=== PATIENT | male | born 1960 | race Caucasian/White ===

== ENCOUNTER 2023-03-19 10:01 | Inpatient (IN) ==
--- NOTE | 2023-03-19 10:13 | Emergency Department Note ---
Impression & Plan Pneumonia, Neutropenic fever, Hypomagnesemia, Sepsis ED Provider Note NAME: JULIANNA AZEVEDO AGE: 62 SEX: M : 1960 ARRIVES VIA: Walk-In INFORMANT: Patient, ED PROVIDER(S): Gio Mckinley DO CHIEF COMPLAINT: Fever HPI: The patient is a 62-year-old male who has a history of oral cavity cancer who presented to the emergency department for an evaluation. The patient presented for radiation therapy today at the cancer center. He was found to be febrile tachycardic and hypotensive. He had decreased p.o. intake. He was sent emergently to the ER for further evaluation. The patient denies having any vomiting or leg swelling. He denies having any headache. He denies having any chest pain or difficulty with abdominal pain. He has noticed some cough which is productive. ROS: See above HPI for pertinent positives & negatives. A total of 10 systems reviewed and were otherwise negative. PAST MEDICAL HISTORY: See Below PAST SURGICAL HISTORY: See Below FAMILY HISTORY: See Below SOCIAL HISTORY: See Below HOME MEDICATIONS: See Below ALLERGIES: See Below VITALS: See Below PHYSICAL EXAMINATION: GENERAL: Patient is awake alert in no acute distress patient is resting comfortably and showing no signs of anxiety EYES: The conjunctivae are clear. The pupils are round and reactive. EARS, NOSE, MOUTH AND THROAT: The nose is without any evidence of any deformity. Mucous membranes are dry. NECK: The neck is nontender and supple. RESPIRATORY: Diminished breath sounds were noted throughout. There were scattered rhonchi throughout. CARDIOVASCULAR: Regular rate and rhythm noted there no murmurs rubs or gallops normal S1 normal S2. GASTROINTESTINAL: The abdomen is soft. Abdomen is nontender. MUSCULOSKELETAL/EXTREMITIES: There is no evidence of gross deformity full range of motion is noted in the hips and shoulders. SKIN: There is no obvious evidence of any rash. There are no petechiae, pallor or cyanosis noted. NEUROLOGIC: Patient is awake alert and oriented x3 MEDICAL DECISION MAKING: The patient is a 62-year-old male who is a history of oral cancer who presented to the emergency department for an evaluation of difficulty breathing and fever. The patient was treated with IV fluids in the emergency department. He was also treated with IV antibiotics. He was reevaluated multiple times. He received IV magnesium for hypomagnesemia. I discussed the patient's laboratory and radiographic studies with him. Given his condition as well as his findings I [facility] have agreed to evaluate the patient in the emergency department for further management and disposition. Triage Nursing notes reviewed. Prior medical records reviewed Vital Signs: reviewed and remarkable for initial hypotension. Differential diagnosis: Viral syndrome, otitis, pharyngitis, pneumonia, influenza, meningitis, urinary tract infection, sepsis, bacteremia, as well as other pathologies. ER treatment provided: See below Diagnostics interpreted by me: ECG: EKG was obtained in the emergency department. My interpretation is sinus tachycardia at 114 bpm. There is no ectopy. There is no acute ST segment abnormalities noted. No previous tracing was available. Cardiac Monitoring: An order was placed for continuous cardiac monitoring. The monitor shows a rate of 91 bpm with sinus rhythm. Laboratory studies: As stated above and show below. Imaging studies: See below. Radiographic imaging was reviewed by myself Consultation(s): I discussed this case with Kay who [facility] ED COURSE: Procedures: none Critical Care: I have personally spent greater than 45 minutes of critical care time in the direct management of this patient. This includes bedside care, interpretation of diagnostic studies, and testing, discussion with consultants, patient, and family members, and other required patient management activities. This 45 minutes is in excess of all separately billable procedures. Past Med/Surg History Medical History (Updated 03/19/23 @ 14:09 by Gio Mckinley DO) Cancer of oral cavity Venous insufficiency Cavitary lung disease Centrilobular emphysema Tobacco use disorder Surgical History S/P percutaneous endoscopic gastrostomy (PEG) tube placement S/P bronchoscopy Family History Mother Myocardial infarction Father Myocardial infarction Sister Myocardial infarction Social History Smoking Status: Former smoker Tobacco Type: Cigarettes Age Started Using Tobacco: 15; Cigarettes Per Day: 1-2 cigarettes per day; Second Hand Exposure: No; Do You Dip or Chew Tobacco: No; Hx Alcohol Use: Yes Alcohol type: beer Hx Substance Use: No Preferred Language: Martiniquais Communication Ability: Effective Communication Ability Comment: does have difficulty speaking due to oral pain Visual Impairment: No Limitations Hearing Ability: Normal Beliefs That Will Affect Care: None Current Living Situation: Alone current occupational status: employed 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 Feels Safe at Home: Yes Diet: Pureed during the past year weight has: decreased > 10 lbs Assistive Devices: None Allergies Allergies Allergy/AdvReac Type Severity Reaction Status Date / Time No Known Allergies Allergy Unverified 03/17/23 09:53 Home Meds Home Medications Medication Instructions Recorded Confirmed ondansetron HCl 8 mg tablet 8 mg PO Q8H PRN Nausea And Vomiting 01/14/23 03/19/23 prochlorperazine maleate 10 mg 10 mg PO Q6H PRN Nausea And 01/14/23 03/19/23 tablet (Compazine) Vomiting morphine concentrate 100 mg/5 mL 5 mg PO Q4H PRN Pain 03/19/23 03/19/23 (20 mg/mL) oral solution nutritional supplements 1 ea feeding tube UD 03/19/23 03/19/23 Previous Rx's Medication Instructions Recorded Magic Mouthwash 300 mL mouthwash 10 ml mucous membrane ACHS PRN 01/27/23 mouth pain #300 mL Results & Data (ED) Vital Signs Vital Signs - 24 hr 03/19/23 10:31 03/19/23 10:33 03/19/23 10:33 Temperature 37.6 C H Temperature Source Oral Pulse Rate 109 H 106 H Pulse Rate [Right Finger] 106 H Pulse Rhythm Regular Pulse Rhythm [Right Finger] Regular Pulse Strength Pulse Strength [Right Finger] Normal Respiratory Rate 24 24 Respiratory Effort / Characteristics Non-Labored Spontaneous Respiratory Depth Normal Respiratory Pattern Regular Blood Pressure Blood Pressure [Right Arm] 91/64 L Blood Pressure Mean Blood Pressure Mean [Right Arm] 73 Blood Pressure Position Blood Pressure Position [Right Arm] Semi-fowlers Pulse Oximetry 96 96 Oxygen Delivery Method Nasal Cannula Nasal Cannula Oxygen Flow Rate 2 2 Sepsis Recent Fever Within 48 Hours Sepsis New/Unexplained Change in Mental Status Sepsis Action Taken by Nursing 03/19/23 10:44 03/19/23 10:44 03/19/23 11:49 Temperature 37.1 C 37.1 C 37.2 C Temperature Source Axillary Axillary Axillary Pulse Rate 106 H Pulse Rate [Right Finger] 106 H 91 H Pulse Rhythm Regular Pulse Rhythm [Right Finger] Regular Regular Pulse Strength Normal Pulse Strength [Right Finger] Normal Normal Respiratory Rate 24 24 20 Respiratory Effort / Characteristics Non-Labored Spontaneous Non-Labored Spontaneous Non-Labored Spontaneous Respiratory Depth Normal Normal Normal Respiratory Pattern Regular Regular Regular Blood Pressure 91/64 L Blood Pressure [Right Arm] 91/64 L 109/68 Blood Pressure Mean 73 Blood Pressure Mean [Right Arm] 73 81 Blood Pressure Position Semi-fowlers Blood Pressure Position [Right Arm] Semi-fowlers Semi-fowlers Pulse Oximetry 96 96 100 Oxygen Delivery Method Nasal Cannula Nasal Cannula Nasal Cannula Oxygen Flow Rate 2 2 2 Sepsis Recent Fever Within 48 Hours Yes Sepsis New/Unexplained Change in Mental Status No Sepsis Action Taken by Nursing Physician Notified 03/19/23 12:45 Temperature 37.2 C Temperature Source Axillary Pulse Rate Pulse Rate [Right Finger] 91 H Pulse Rhythm Pulse Rhythm [Right Finger] Regular Pulse Strength Pulse Strength [Right Finger] Normal Respiratory Rate 20 Respiratory Effort / Characteristics Non-Labored Spontaneous Respiratory Depth Normal Respiratory Pattern Regular Blood Pressure Blood Pressure [Right Arm] 100/63 Blood Pressure Mean Blood Pressure Mean [Right Arm] 75 Blood Pressure Position Blood Pressure Position [Right Arm] Semi-fowlers Pulse Oximetry 100 Oxygen Delivery Method Nasal Cannula Oxygen Flow Rate 2 Sepsis Recent Fever Within 48 Hours Sepsis New/Unexplained Change in Mental Status Sepsis Action Taken by Care Home Medications Current Medication List: was personally reviewed by me Laboratory Data Attestation: I reviewed the patient's lab results. 03/19/23 10:25 03/19/23 10:25 Lab Results 03/19/23 03/19/23 03/19/23 Range/Units 10:25 10:56 12:30 WBC 1.31 L (4.8-10.8) K/ul RBC 3.03 L (4.70-6.10) M/uL Hgb 9.3 L (14.0-18.0) g/dl Hct 27.9 L (42.0-52.0) % MCV 92.1 (80.0-100.0) fL MCH 30.7 (25.0-34.0) pg MCHC 33.3 (32.0-36.0) g/dL RDW Std Deviation 48.8 H (36.4-46.3) fL RDW Coeff of Suraj 15.2 H (11.5-14.5) % Plt Count 111 L (130-400) K/uL MPV 9.7 (9.4-12.4) fL Immature Gran % (Auto) 0.8 % Neut % (Auto) 83.1 % Lymph % (Auto) 4.6 % Tyler % (Auto) 11.5 % Eos % (Auto) 0.0 % Baso % (Auto) 0.0 % Neut # (Auto) 1.09 L (1.40-6.50) K/uL Lymph # (Auto) 0.06 L (1.20-3.40) K/uL Tyler # (Auto) 0.15 (0.11-0.59) K/uL Eos # (Auto) 0.00 (0.00-0.50) K/uL Baso # (Auto) 0.00 (0.00-0.20) K/uL Immature Gran # (Auto) 0.01 (0.01-0.20) K/uL PT 11.6 (9.0-12.0) Seconds INR 1.1 (0.9-1.1) APTT 25 (21-31) Seconds PTT Ratio 0.9 VBG pH Cancelled 7.40 VBG pCO2 Cancelled 50 VBG pO2 Cancelled 33 VBG HCO3 Cancelled 31 VBG O2 Saturation Cancelled TNP VBG Base Excess Cancelled 5.0 Barometric Pressure Cancelled Sodium 132 L (136-145) mmol/L Potassium 4.7 (3.5-5.1) mmol/L Chloride 97 L (98-107) mmol/L Carbon Dioxide 28 (21-32) mmol/L Anion Gap 7 (3-11) BUN 35 H (6-23) mg/dl Creatinine 0.90 (0.6-1.4) mg/dl Est Cr Clr Drug Dosing 65.4 ml/min Est GFR ( Amer) 105.0 ml/min Est GFR (Non-Af Amer) 90.6 ml/min BUN/Creatinine Ratio 38.9 H (10-20) Glucose 149 H (70-99(Fasting)) mg/dl Lactate 2.6 H* 1.3 (0.4-2.0) mmol/L Calcium 8.6 (8.6-10.3) mg/dl Magnesium 1.6 L (1.7-2.4) mg/dl Total Bilirubin 0.5 (0.2-1.0) mg/dl Direct Bilirubin 0.1 (0-0.2) mg/dl AST 14 (13-39) U/L ALT 12 (7-52) U/L Alkaline Phosphatase 67 (34-104) U/L Troponin I High Sens 18.4 (0-20) pg/ml Total Protein 6.5 (6.0-8.3) gm/dl Albumin 3.1 L (3.4-5.0) gm/dl Procalcitonin 0.73 H (0-0.5) ng/ml Adenovirus (PCR) Not Detected (NotDetected) B. pertussis DNA (PCR) Not Detected (NotDetected) B.parapertussis DNA PCR Not Detected (NotDetected) C. pneumoniae DNA (PCR) Not Detected (NotDetected) Coronavirus OC43 (PCR) Not Detected (NotDetected) Coronavirus HKU1 (PCR) Not Detected (NotDetected) Coronavirus 229E (PCR) Not Detected (NotDetected) SARS-CoV-2 (PCR) Not Detected (NotDetected) Coronavirus NL63 (PCR) Not Detected (NotDetected) Human Metapneumovir PCR Not Detected (NotDetected) Influenza Type A (PCR) Not Detected (NotDetected) Influenza Type B (PCR) Not Detected (NotDetected) M. pneumoniae (PCR) Not Detected (NotDetected) Parainfluenza 1 (PCR) Not Detected (NotDetected) Parainfluenza 2 (PCR) Not Detected (NotDetected) Parainfluenza 3 (PCR) Not Detected (NotDetected) Parainfluenza 4 (PCR) Not Detected (NotDetected) RSV (PCR) Not Detected (NotDetected) Entero/Rhino (PCR) Not Detected (NotDetected) Administered Medications Discontinued Medications Sodium Chloride (Nss) 1,000 mls @ 999 mls/hr IV .Q1H1M ONE Stop: 03/19/23 11:04 Last Infusion: 03/19/23 12:34 Dose: Infused Documented By: Admin: 03/19/23 10:44 Dose: 999 mls/hr Documented By: ISAIAH Sodium Chloride (Nss) 1,000 mls @ 999 mls/hr IV .Q1H1M ONE Stop: 03/19/23 12:40 Last Infusion: 03/19/23 13:36 Dose: Infused Documented By: Admin: 03/19/23 11:54 Dose: 999 mls/hr Documented By: ISAIAH Cefepime HCl (Maxipime) 2,000 mg in 20 mls @ 5 mls/min IV NOW STA; Protocol Stop: 03/19/23 11:43 Last Admin: 03/19/23 11:54 Dose: 5 mls/min Documented By: ISAIAH Magnesium Sulfate/Dextrose (Magnesium Sulfate / D5w) 1 gm in 100 mls @ 100 mls/hr IV NOW STA Stop: 03/19/23 12:40 Last Infusion: 03/19/23 13:36 Dose: Infused Documented By: Admin: 03/19/23 11:54 Dose: 100 mls/hr Documented By: ISAIAH Imaging Data Attestation: I personally reviewed and interpreted this imaging study as follows: My Impression: 1 view chest x-ray was obtained in the emergency department. My interpretation is infiltrate in the right lung field, final report below. Radiologist's Impression: Chest X-Ray 03/19/23 10:04 XR chest 1V portable HISTORY: 62 years-old Male Sepsis acute sepsis COMPARISON: Chest CT from outside facility on 12/25/2022 TECHNIQUE: AP view of the chest FINDINGS: Emphysema. 7.5 cm cavitary mass with mural nodules within the right lung apex redemonstrated. There is no pneumothorax, pleural effusion or overt pulmonary edema. There are new right basilar airspace opacities. Bones appear grossly intact. IMPRESSION: 1. Mild right lung base airspace opacities are suggestive of pneumonia. 2. Cavitary right apical mass redemonstrated. 3. Emphysema with chronic interstitial coarsening. ACT 112: Negative or not required by law. The above report was generated using voice recognition software. It may contain grammatical, syntax or spelling errors. Electronically signed by: Abhay Denny M.D. 03/19/2023 10:44 AM Discharge Plan Visit Data Chief Complaint: Illness Stated Complaint: on chemo, fever, low BP, tachy ED Provider: Gio Mckinley Discharge Problem: Pneumonia, Neutropenic fever, Hypomagnesemia, Sepsis Patient Disposition: Being Evaluated by Hospitalist Forms Stand Alone Forms: My [facility] Prescriptions Prescriptions: No Action ondansetron HCl 8 mg tablet 8 mg PO Q8H PRN (Reason: Nausea And Vomiting) prochlorperazine maleate [Compazine] 10 mg tablet 10 mg PO Q6H PRN (Reason: Nausea And Vomiting) Magic Mouthwash 300 mL mouthwash 10 ml mucous membrane ACHS PRN (Reason: mouth pain) Qty: 300 5RF morphine concentrate 100 mg/5 mL (20 mg/mL) solution 5 mg PO Q4H PRN (Reason: Pain) Nutren 1.5 Liquid 1 ea feeding tube UD Rx Instructions: 250 ml 6 times day through feeding tube Referrals Referrals: PCP,NO [Primary Care Provider] - Discharge Problem: Pneumonia Qualifiers: Pneumonia type: due to unspecified organism Laterality: right Lung location: u nspecified part of lung Qualified Code(s): J18.9 - Pneumonia, unspecified organism Sepsis Qualifiers: Sepsis type: sepsis due to unspecified organism Sepsis acute organ dysfunction status: unspecified Qualified Code(s): A41.9 - Sepsis, unspecified organism
[2023-03-19] MEDS: SODIUM CHLORIDE 0.9% 1,000 ML IV ONE ×2 (10:44→11:54)
--- NOTE | 2023-03-19 10:45 | XRay Report ---
XR chest 1V portable HISTORY: 62 years-old Male Sepsis acute sepsis COMPARISON: Chest CT from outside facility on 12/25/2022 TECHNIQUE: AP view of the chest FINDINGS: Emphysema. 7.5 cm cavitary mass with mural nodules within the right lung apex redemonstrated. There i s no pneumothorax, pleural effusion or overt pulmonary edema. There are new right basilar airspace op acities. Bones appear grossly intact. IMPRESSION: 1. Mild right lung base airspace opacities are suggestive of pneumonia. 2. Cavitary right apical mass redemonstrated. 3. Emphysema with chronic interstitial coarsening. ACT 112: Negative or not required by law. The above report was generated using voice recognition software. It may contain grammatical, syntax o r spelling errors. Electronically signed by: Abhay Denny M.D. 03/19/2023 10:44 AM
[2023-03-19 10:55] LABS: Hematocrit (blood only) 27.9 % (42.0-52.0); Hemoglobin 9.3 g/dl (14.0-18.0); Mean Corpuscular Hemoglobin 30.7 pg (25.0-34.0); Mean Corpuscular Hgb Conc 33.3 g/dL (32.0-36.0); Mean Corpuscular Volume 92.1 fL (80.0-100.0); Mean Platelet Volume 9.7 fL (9.4-12.4); Platelet Count 111 K/uL (130-400); RDW Coefficient of Variation 15.2 % (11.5-14.5); RDW Standard Deviation 48.8 fL (36.4-46.3); Red Blood Count 3.03 M/uL (4.70-6.10); White Blood Count 1.31 K/ul (4.8-10.8)
[2023-03-19 11:05] LABS: Albumin Level 3.1 gm/dl (3.4-5.0); BUN Creatinine Ratio 38.9 (10-20); Bilirubin Direct 0.1 mg/dl (0-0.2); Bilirubin,Total 0.5 mg/dl (0.2-1.0); Calcium 8.6 mg/dl (8.6-10.3); Creatinine Clr Calc Pharmacy 65.4 ml/min; Est GFR (Non-African American) 90.6 ml/min; Magnesium 1.6 mg/dl (1.7-2.4); Potassium 4.7 mmol/L (3.5-5.1); Total Protein 6.5 gm/dl (6.0-8.3)
[2023-03-19 11:06] LABS: HCO3 VBG 31 mmol/L; PCO2 VBG 50 mmHg (38-50); PO2 VBG 33 mmHg
[2023-03-19 11:12] LABS: Troponin I High Sensitivity 18.4 pg/ml (0-20)
[2023-03-19 11:16] LABS: INR 1.1 (0.9-1.1); Partial Thromboplastin Ratio 0.9; Partial Thromboplastin Time 25 Seconds (21-31); Prothrombin Time 11.6 Seconds (9.0-12.0)
[2023-03-19 11:27] LABS: Immature Granulocytes # (auto) 0.01 K/uL (0.01-0.20); Immature Granulocytes % (auto) 0.8 %; Lymphocytes # (auto) 0.06 K/uL (1.20-3.40); Lymphocytes % (auto) 4.6 %; Monocytes # (auto) 0.15 K/uL (0.11-0.59); Monocytes % (auto) 11.5 %; Neutrophils # (auto) 1.09 K/uL (1.40-6.50); Neutrophils % (auto) 83.1 %
--- NOTE | 2023-03-19 11:34 | Electrocardiogram Report ---
Test Reason : Blood Pressure : / mmHG Vent. Rate : 114 BPM Atrial Rate : 114 BPM P-R Int : 156 ms QRS Dur : 088 ms QT Int : 298 ms P-R-T Axes : 083 079 079 degrees QTc Int : 410 ms Sinus tachycardia Biatrial enlargement Abnormal ECG No previous ECGs available Confirmed by Keven Pierre ([id number]) on 03/19/2023 11:33:56 AM Referred By: Confirmed By:Keven Pierre
[2023-03-19 11:37] LABS: Adenovirus PCR Not Detected (NotDetected); Bordetella parapertussis PCR Not Detected (NotDetected); Bordetella pertussis PCR Not Detected (NotDetected); Chlamydia pneumoniae PCR Not Detected (NotDetected); Coronavirus 229E PCR Not Detected (NotDetected); Coronavirus CoV-2 (COVID19)PCR Not Detected (NotDetected); Coronavirus HKU1 PCR Not Detected (NotDetected); Coronavirus NL63 PCR Not Detected (NotDetected); Coronavirus OC43PCR Not Detected (NotDetected); Human Metapneumovirus PCR Not Detected (NotDetected); Influenza A PCR Not Detected (NotDetected); Influenza B PCR Not Detected (NotDetected); Mycoplasma pneumoniae PCR Not Detected (NotDetected); Parainfluenza Virus 1 PCR Not Detected (NotDetected); Parainfluenza Virus 2 PCR Not Detected (NotDetected); Parainfluenza Virus 3 PCR Not Detected (NotDetected); Parainfluenza Virus 4 PCR Not Detected (NotDetected); Respiratory Syncytial VirusPCR Not Detected (NotDetected); Rhinovirus/Enterovirus PCR Not Detected (NotDetected)
[2023-03-19] MEDS: CEFEPIME 2,000 MG/20 ML VIAL IV STA (11:54)
[2023-03-19] MEDS: MAGNESIUM SULFATE / D5W 1 GM/100 ML BAG IV STA (11:54)
--- NOTE | 2023-03-19 12:21 | History & Physical Report ---
Date of Service March 19, 2023 Assessment & Plan (1) Pneumonia: (2) Sepsis: (3) Neutropenic fever: Plan: Patient is 62-year-old male with PMH squamous cell carcinoma of tongue, malnutrition, PEG tube status, right lung cavitary lesion, former tobacco use, former alcohol use presented to ER with fever/chills Presented to ER T: 38.8 C, P: 117, BP 99/61, 84% on room air. WBC: 1.3, ANC: 1079procalcitonin: 0.7. Negative BioFire respiratory panel. Lactate: 2.6--> 1.3 CXR: Mild right lung base airspace opacities are suggestive of pneumonia. Cavitary right apical mass redemonstrated. Emphysema with chronic interstitial coarsening. In ER received 2L NSS, cefepime Reassessed after bolus given and patient afebrile, P: 91, BP 109/68, 100% on 2 L nasal cannula, lungs clear, heart regular rhythm, brisk capillary refill, skin warm and pink UA pending Blood cultures pending Neutropenic precautions IVF Cefepime, vancomycin CBC, BMP in am (4) Hypomagnesemia: Plan: Magnesium: 1.6 In ER given 1 g magnesium sulfate Magnesium lab in a.m. (5) Pancytopenia due to antineoplastic chemotherapy: Plan: Pancytopenia secondary to chemo WBC: 1.3 (was 8.1 on 03/13/23). Hgb: 9.3 (was 12 on 03/13/23). Plt: 111 (was 172 on 03/13/23) Monitor CBC (6) Hyponatremia: Plan: Na: 132 Monitor BMP (7) 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 Tevin Kenney, radiation oncology Dr. Eleazar Kenney (8) Severe malnutrition: Plan: BMI: 16 PEG tube status. Currently not taking oral secondary to oral mouth pain from radiation. Significant weight loss over past 8 months. PEG tube receiving tube feeds 6 time daily Continue home Nutren Following with nutrition outpatient (9) Cavitary lesion of lung: Plan: Known right upper lung cavitary lesion Following with pulmonology outpatient. 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 DVT Prophylaxis SCDs Full Code as per discussion with pt Follows with Dr Aceves for routine care Pt was seen and care coordinated with Dr Laguerre. See addendum I spent a total of 77 minutes reviewing notes, outpatient records, labs, medication, coordinating, documenting and providing care for this patient exclud ing time spent in the performance of separately billed services. History of Present Illness Chief Complaint: "illness" Primary Care Provider: Dr Aceves Patient is 62-year-old male with PMH squamous cell carcinoma of tongue, malnutrition, PEG tube status, right lung cavitary lesion, former tobacco use, former alcohol use presented to ER with complaint of feeling ill. Patient states today woke up and had generalized weakness, chills, and felt unwell. He also felt SOB today. States did not take his temperature at home. Reports chronic cough of white phlegm. Patient does not feel cough has increased or sputum production has increased. Patient currently receiving chemo and radiation. Has had progressive tongue and oral discomfort. Any movement of mouth or talking causes increased pain. He has been avoiding talking to limit o ral pain. Patient uses tube feeds. Only thing he uses orally is morphine suspension every 4 hours hours for oral pain. States has mouthwash to use as needed for discomfort but has not been using that. Last chemo (cispltin) on 03/13/23. Patient states since starting radiation has had chronic headache and tinnitus and feels this is unchanged. [facility] has BM's every couple of days. Denies diaphoresis, N/V/D, syncope, vision changes, neck pain, CP, orthopnea, palpitations, hemoptysis, sore throat, otalgia, rhinorrhea, abdominal pain, paresthesias, extremity edema, rashes, urinary symptoms. Allergies Allergy/AdvReac Type Severity Reaction Status Date / Time No Known Allergies Allergy Unverified 03/17/23 09:53 Home Medications Medication Instructions Recorded Confirmed Type ondansetron HCl 8 mg tablet 8 mg PO Q8H PRN Nausea And Vomiting 01/14/23 02/09/02 History prochlorperazine maleate 10 mg 10 mg PO Q6H PRN Nausea And 01/14/23 03/19/23 History tablet (Compazine) Vomiting Magic Mouthwash 300 mL mouthwash 10 ml mucous membrane ACHS PRN 01/27/23 03/19/23 Rx mouth pain #300 mL morphine concentrate 100 mg/5 mL 5 mg PO Q4H PRN Pain 03/19/23 03/19/23 History (20 mg/mL) oral solution nutritional supplements 1 ea feeding tube UD 03/19/23 03/19/23 History Past Med/Surg History Medical History (Updated 03/19/23 @ 15:44 by Dannielle Teixeira PA-C) Cavitary lesion of lung Severe malnutrition Cancer of oral cavity Venous insufficiency Cavitary lung disease Centrilobular emphysema Tobacco use disorder Surgical History S/P percutaneous endoscopic gastrostomy (PEG) tube placement S/P bronchoscopy Family History Mother Myocardial infarction Father Myocardial infarction Sister Myocardial infarction Social History (Updated 03/19/23 @ 15:15 by Dannielle Teixeira PA-C) Smoking Status: Former smoker Tobacco Type: Cigarettes Age Started Using Tobacco: 15; Second Hand Exposure: No; Do You Dip or Chew Tobacco: No; Hx Alcohol Use: No Hx Substance Use: No Preferred Language: Nepali Communication Ability: Effective Communication Ability Comment: does have difficulty speaking due to oral pain Visual Impairment: No Limitations Hearing Ability: Normal Beliefs That Will Affect Care: None Current Living Situation: Alone Current Living Situation Comment: Alone in house current occupational status: employed 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 Mouth: +white plaques noted to tongue and palate, tongue erythematous, mucous membranes dry Neck: supple, trachea midline Lungs: clear, no respiratory distress on current 2L via NC with O2 sat 100%, Diminished breath sounds bases CV: regular rhythm and rate , no murmur, no pretibial edema Abd: normal BS, soft, non-tender Ext: no cyanosis, no calf tenderness Neuro: A&O x 3, no focal deficits noted, normal affect. Using pen and paper to communicate Skin: warm, dry Results & Data Results & Data Vital Signs (Past 12 Hours) Vital Signs Temp Pulse Pulse Resp BP BP Pulse Ox 03/19/23 11:49 37.2 C 91 H 20 109/68 100 03/19/23 10:44 37.1 C 106 H 24 91/64 L 96 03/19/23 10:44 37.1 C 106 H 24 91/64 L 96 03/19/23 10:33 37.6 C H 106 H 24 91/64 L 96 03/19/23 10:33 106 H 24 96 03/19/23 10:31 109 H O2 Del Method O2 Flow Rate 03/19/23 11:49 Nasal Cannula 2 03/19/23 10:44 Nasal Cannula 2 03/19/23 10:44 Nasal Cannula 2 03/19/23 10:33 Nasal Cannula 2 03/19/23 10:33 Nasal Cannula 2 03/19/23 10:31 Laboratory Results Short CBC 03/19/23 Range/Units 10:25 WBC 1.31 L (4.8-10.8) K/ul Hgb 9.3 L (14.0-18.0) g/dl Hct 27.9 L (42.0-52.0) % Plt Count 111 L (130-400) K/uL BMP 03/19/23 10:25 Sodium 132 L Potassium 4.7 Chloride 97 L Carbon Dioxide 28 BUN 35 H Creatinine 0.90 Glucose 149 H Calcium 8.6 Liver Function 03/19/23 Range/Units 10:25 Total Bilirubin 0.5 (0.2-1.0) mg/dl Direct Bilirubin 0.1 (0-0.2) mg/dl AST 14 (13-39) U/L ALT 12 (7-52) U/L Alkaline Phosphatase 67 (34-104) U/L Albumin 3.1 L (3.4-5.0) gm/dl Urine 03/19/23 Range/Units 14:38 Urine Color Dark Yellow Urine Appearance Clear (Clear) Urine pH 6.0 (4.5-7.5) Ur Specific [place] 1.018 (1.000-1.030) Urine Protein Trace H (Negative) Urine Glucose (UA) Negative (Negative) Diagnostic Findings Chest X-Ray 03/19/23 10:04 XR chest 1V portable HISTORY: 62 years-old Male Sepsis acute sepsis COMPARISON: Chest CT from outside facility on 12/25/2022 TECHNIQUE: AP view of the chest FINDINGS: Emphysema. 7.5 cm cavitary mass with mural nodules within the right lung apex redemonstrated. There is no pneumothorax, pleural effusion or overt pulmonary edema. There are new right basilar airspace opacities. Bones appear grossly intact. IMPRESSION: 1. Mild right lung base airspace opacities are suggestive of pneumonia. 2. Cavitary right apical mass redemonstrated. 3. Emphysema with chronic interstitial coarsening. ACT 112: Negative or not required by law. The above report was generated using voice recognition software. It may contain grammatical, syntax or spelling errors. Electronically signed by: Abhay Denny M.D. 03/19/2023 10:44 AM ECG Additional Comments: Sinus tachycardia, rate Supervising Physician Co-Signing Physician Notes I have seen and examined the patient and have discussed the case with the provider above. I have reviewed the advanced practitioner's documentation, and I agree with, and take responsibility for that plan of care. 62-year-old man with oral cancer status post PEG tube presents with pneumonia and neutropenic fever. Pancytopenia related to recent ciplatin therapy as outpatient with last infusion on 03/13/23. He is unable to speak or open his mouth much 2/2 pain and is fully dependent on PEG feedings with Nutren at home. He is severely malnourished and cachectic on exam with temporal wasting. ENT of mouth is limited 2/2 pain but there is anatomic distortion of his tongue with a significant amount of granulation tissue and inflammation present. There is a foul odor here, also. HE appears dehydrated/hypovolemic. He is mentating clearly. PEG tube with some surrounding drainage present for the past two days, otherwise abdomen is soft NTND. He has some rhonchi at the base of the right lung. Pneumonia confirmed in this location on imaging. Cont broad spectrum abx pending clinical improvement and culture results, cont neutropenic precautions, trend CBC with diff. He is unable to given spurum culture 2/2 discomfort in his mouth. Cont Roxanal and lidocaine swish as needed for oral discomfort. Holding XRT and chemotherapy at this time. I spent a total [id number] coordinating, documenting, and providing care for this patient excluding time spent in the performance of separately billed services. [place], DO
[2023-03-19] MEDS ORDERED: VANCOMYCIN CONSULT ACTIVE PRN ×3 (13:26→16:44)
--- NOTE | 2023-03-19 14:15 | Pharmacy Report ---
Pharmacy PK ABX Note - Date of Service March 19, 2023 - Assessment and Plan Assessment * 62 year old M receiving VANCOMYCIN and CEFEPIME for treatment of fever, cough, possible pneumonia in setting of immunocompromise, h/o oral cancer, PEG placement, h/o cavitary lung dz. Of note, vancomycin has been ordered for 48 hr duration only. * Pertinent microbiologic data includes: MRSA nasal swab pending, BLCXs pending, negative resp BioFire * Day # 1 of antimicrobial therapy. Plan Vancomycin * Loading dose: 1250 mg IV x 1 * Maintenance dose: 750 mg IV every 12 hours * Regimen is predicted to achieve target AUC/JANNA of 400-600 mg/L.hr * Will check level if anticipated duration of therapy to exceed 48 hrs Pharmacy will continue to follow and will adjust dose/frequency as necessary. Thank you. Pharmacy has transitioned to AUC monitoring for vancomycin. AUC/JANNA is the preferred PK/PD target and is associated with decreased risk of nephrotoxicity compared to traditional trough targets.
[2023-03-19] MEDS: VANCOMYCIN HCL 1,250 MG in SODIUM CHLORIDE 0.9% 250 ML IV ONE (14:44)
[2023-03-19 15:07] LABS: Appearance Urine Clear (Clear); Bacteria Urine Automated Negative (Negative); Bilirubin Urine Negative (Negative); Blood Urine Negative (Negative); Color Urine Dark Yellow; Glucose Urine UA Negative (Negative); Ketones Urine Negative (Negative); Leukocyte Esterase Urine Negative (Negative); Nitrite Urine Negative (Negative); Protein Urine Trace (Negative); RBC Urine Automated 0-4 /hpf (0-4); Specific Gravity Urine 1.018 (1.000-1.030); Urobilinogen Urine Negative (Negative)
--- OUTSIDE RECORDS SUMMARY | 2023-03-19 15:10 | External Medical Summary ---
Author Name Unknown Address Unknown Organization [id number][facility] [place] [address] Laboratory Report Ordering Provider Test Date Status MAULIK AKNG 03/13/2023 08:02:06 Final Observation Date Value Abnormality Reference (Units ) Status Magnesium 03/13/2023 08:02:06 2.1 1.5-2.6 (m g/dL) Final Performing Location [facility] [address]
--- OUTSIDE RECORDS SUMMARY | 2023-03-19 15:10 | External Medical Summary ---
Author Name Unknown Address Unknown Organization K09[facility] [place] [address] Laboratory Report Ordering Provider Test Date Status MAULIK KANG 03/13/2023 08:02:06 Final Observation Date Value Abnormality Reference (Units ) Status WBC, Total 03/13/2023 08:02:06 8.11 4.00-10.8 0 (K/uL) Final RBC 03/13/2023 08:02:06 3.85 4.50-5.25 (M/uL) Final Hemoglobin 03/13/2023 08:02:06 12.0 Below low normal 14 .0-16.8 (g/dL) Final HCT 03/13/2023 08:02:06 37.6 Below low normal 40. 0-48.4 (%) Final MCV 03/13/2023 08:02:06 97.7 82.0-99.5 (fL) Final MCH 03/13/2023 08:02:06 31.2 27.0-34.0 (pg) Final MCHC 03/13/2023 08:02:06 31.9 32.0-36.0 (g/dL) Final RDW 03/13/2023 08:02:06 14.8 11.5-15.5 (%) Final Platelets 03/13/2023 08:02:06 172 140-400 (K /uL) Final MPV 03/13/2023 08:02:06 9.3 6.6-11.1 ( fL) Final Performing Location [facility] [place] [address]
--- OUTSIDE RECORDS SUMMARY | 2023-03-19 15:10 | External Medical Summary | Summary of Care ---
Author Name Unknown Organization [facility] Address [address] [place] [address] Phone [phone] Care Team Providers Care Legal Contracts Specialist Name Role Phone Alida Aceves MD Primary Care Provider [phone] Reason for Visit * Reason Comments Chemotherapy Cisplatin. * Episode Based Medications (Routine) - Authorized Specialty Diagnoses / Procedures Referred By Contac t Referred To Contact Diagnoses Encounter for antineoplastic chemotherapy Cancer of base of tongue (HCC) Procedures MO CISPLATIN 10 MG INJECTION MO FOSAPREPITANT INJECTION MO INJ., APREPITANT, 1 MG Tevin Kenney MD [address] [place] [address] Anc Hem/Onc [facility] Patti [address] [place] [id number] Referral ID Status Reason Start Date Expiration Date V isits Requested Visits Authorized [id number] Authorized 03/13/2023 03/13/[phone] Encounter Details Date Type Department Care Team (Latest Contact Info) Description 03/13/2023 8:45 AM EST Hem/Onc Treatment Hematology/Oncolog y Treatment, [address] [address] Patti, Chair 2 Hem Onc [address] [address] Encounter for antineoplastic chemotherapy*; Cancer of base of tongue (HCC) Allergies No known active allergiesdocumented as of this encounter (statuses as of 03/13/2023) Medications Medication Sig Dispensed Refills Start Date End Date Status Nystatin 783945 UNIT/ML Mouth/Throat Suspension Swish and swallow 5 mL in the morning and 5 mL at noon and 5 mL in the evening and 5 mL before bedtime. For thrush.. 240 mL 1 10/28/2022 Active Mirtazapine 7.5 MG Oral Tablet (Remeron)Indicatio ns:Weight loss Take 1 Tablet by mouth at bedtime. 30 Tablet 3 10/30/2022 Active Additional Information Patient not taking.Reported on 01/15/2023 Ondansetron HCl 8 MG Oral Tablet (Zofran)Indication s:Cancer of base of tongue (HCC) Take 1 Tablet by mouth every 8 hours as needed for Nausea. 30 Tablet 3 01/09/2023 Active Additional Information Patient not taking.Reported on 01/15/2023 Prochlorperazine Maleate 10 MG Oral Tablet (Compazine)Indicat ions:Cancer of base of tongue (HCC) Take 1 Tablet by mouth every 6 hours as needed for Nausea. 30 Tablet 3 01/09/2023 Active Additional Information Patient not taking.Reported on 01/15/2023 Voriconazole 200 MG Oral Tablet (Vfend) Take 1 Tablet by mouth in the morning and 1 Tablet before bedtime. 60 Tablet 5 01/09/2023 Active Nutren 1.5 Oral LiquidIndications: Cancer of base of tongue (HCC) Administer 250 mL six times daily, as directed through feeding tube via bolus syringe. 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 30 mL 0 03/06/2023 Active Hospital, Clinic, or Other Facility Administered Medication Ordered Dose Route Frequency Start Date End Date Status Albuterol Sulfate (Proventil) (2.5 MG/3ML) 0.083% inhalation solution 2.5 mgIndications:Centrilob ular emphysema (HCC) 2.5 mg NEBULIZER PRN 10/15/2022 10/15/2023 Acti ve Albuterol Sulfate (Proventil) (5 MG/ML) 0.5% *conc* inhalation solution 2.5 mgIndications:Centrilob ular emphysema (HCC) 2.5 mg NEBULIZER PRN 10/15/2022 10/15/2023 Acti ve documented as of this encounter (statuses as of 03/13/2023) Active Problems Problem Noted Date Diagnosed Date Cancer of base of tongue 01/08/2023 Encounter for antineoplastic chemotherapy 2022 Centrilobular emphysema 11/11/2022 Cavitary lung disease 10/15/2022 Pain in limb 04/04/2008 Family history of ischemic heart disease 009 Routine medical exam 03/22/2008 Tobacco use disorder 03/22/2008 Venous insufficiency 10/14/2002 documented as of this encounter (statuses as of 03/13/2023) Resolved Problems Problem Noted Date Diagnosed Date Resolved Date 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 9 10/15/2022 documented as of this encounter (statuses as of 03/13/2023) Immunizations Name Administration Dates Next Due Pneumococcal Polysaccharide PPV23 (Pneumovax) 05/17/2008(Deferred: Patient Refused) TDAP (age 11 and older)(Adacel) 02/10/2005 documented as of this encounter Social History Tobacco Use Types Packs/Day Years Used Date Smoking Tobacco: Every Day Cigarettes 0.1 35 Passive Smoke Exposure: Current Smokeless Tobacco: Never Comments:10/15/22 0.25 ppd Alcohol Use Standard Drinks/Week Comments Yes 0 (1 standard drink = 0.6 oz pur e alcohol) rare Sex and Gender Information Value Date Recorded Sex Assigned at Not on file Gender Identity Not on file Sexual Orientation Not on file Job Start Date Occupation Industry Not on file Not on file Not on file documented as of this encounter Last Filed Vital Signs Vital Sign Reading Time Taken Comments Blood Pressure 101/64 03/13/2023 9:15 AM EST Pulse 93 03/13/2023 9:15 AM EST Temperature 37.2 C (99 F) 03/13/2023 9:15 AM EST Respiratory Rate 18 03/13/2023 9:15 AM EST Oxygen Saturation 93% 03/13/2023 9:15 AM EST Inhaled Oxygen Concentration - - Weight 55.4 kg (122 lb 3.2 oz) 03/13/2023 9:15 A M EST Height - - Body Mass Index 16.57 03/03/2023 3:01 PM EST documented in this encounter Nursing Notes * Marietta Kiran RN - 03/13/2023 3:16 PM EST Goals: Patient will remain free from injury. Possible barriers to meeting goals: Fall risk d/t ambulation with IV pole. Stability of the patient: Moderately stable - low risk of patient condition declining or worsening Summary regarding today's goals: Met: Patient remained free of injury. Functional status at today's visit: Fully active, able to carry on all pre-disease performance without restriction The drug name, dose, infusion volume, rate and route of administration, expiration date and time, appearance and physical integrity of the drug and rate set on the pump and sequencing of drug administration (as applicable) were verified by me and second sign-in RN. Patient was assessed for symptoms or adverse side effects during treatment. Patient tolerated procedure well. Discharged in stable condition. * Marietta Kiran RN - 03/13/2023 9:55 AM EST Chair 10. Patient arrived for cisplatin treatment. PIV accessed. Patient is feeling well overall. Chemo agents cisplatin. Appetite has peg tube d/t cancer. Nausea/Vomiting no Diarrhea no Constipation no Mucositis no Fatigue no Bleeding no Infection no Rash no Numbness tingling no Pain no Radiation yes ABN Labs WNL for treatment. Alt in Tx: no Return in 1 week. Safety and Risk for Injury Patient will remain free from injury. Ensure appropriate safety devices are available. Provide and maintain safe environment. documented in this encounter Plan of Treatment Upcoming Encounters Date Type Department Care Team (Late st Contact Info) Description 03/20/2023 7:20 AM EST Laboratory Laboratory [place] Ami Armstrong [address] [place] [phone] [place], Lab Scenery [address] [place] [address] 03/20/2023 8:00 AM EST Office Visit Hematology/Oncology [facility] [address] [facility] [place] [address] Blanka Nixon CRNP [address] [facility] [place] [address] 03/20/2023 8:30 AM EST Hem/Onc Treatment Hematology/Oncology Treatment, [place] [address] [facility] [address] [place] [address] Patti, Chair 4 Hem Onc [facility] [address] [facility] [place] [address] 03/26/2023 10:00 AM EST Nutrition Services Nutrition, [facility] [address] [facility] [place] [address] Jaqui Edouard RDN [facility] [place] [address] 04/04/2023 11:20 AM EST Office Visit Nutrition & Weight Management, [facility] [place] [address] Penelope Celaya PA-C [address] [place] [address] 04/10/2023 9:00 AM EST Imaging Radiology [facility] 1st [facility] [address] [facility] [place] [address] 07/02/2023 3:20 PM EDT Office Visit Pulmonary Medicine Brea Null [address] [place] [phone] Felipe Hernandez MD [address] [place] [address] Health Maintenance Due Date Last Done Comments COVID-19 Vaccine (#1) 08/06/1965 Pneumococcal Vaccine: Pediat rics (0 to 5 Years) and At-Risk Patients (6 to 64 Years) (1 - PCV) 08/06/1965 Depression Screening 1971 Zoster Vaccines (1 of 2) 08/06/1978 Cologuard 08/06/2004 Colonoscopy 08/06/2004 Colorectal Cancer Screening 08/06/2004 Fecal Occult Blood Test 08/06/2004 Sigmoidoscopy 08/06/2004 DTaP,Tdap,and Td Vaccines (2 - Td or Tdap) 02/10/2015 02/10/2005 Influenza Vaccine (FLU shot) (#1) 2022 DISCUSS TOBACCO CESSATION (R EFER TO SMARTSET #3211) 10/16/2023 10/15/2022 O2 ASSESSMENT COMPLETED IN P AST YEAR FOR COPD 01/11/2024 01/10/2023 Lipid Panel 08/21/2027 08/20/2022 Alpha-1 Antitrypsin Completed 02/12/2023 GARDASIL-HPV IMMUNIZATION SERIES Aged Out No longer eligible based on patient's age to complete this topic Hepatitis B Aged Out No longer eligi ble based on patient's age to complete this topic MENINGOCOCCAL (MENACTRA/MENVEO) Aged Out No longer eligible based on patient's age to complete this topic documented as of this encounter Medical Devices Not on filedocumented as of this encounter Visit Diagnoses Diagnosis Encounter for antineoplastic chemotherapy- Primary Cancer of base of tongue (HCC) Malignant neoplasm of base of tongue documented in this encounter Administered Medications Active Administered Medications - up to 3 most recent administrations Medication Order MAR Action Action Date Dose Rate Site diphenhydrAMINE (Benadryl) inj 50 mg 50 mg, IV Push, ONCE PRN Other, Hypersensitivity Reaction, Starting on Fri03/13/23 at 0923, Until Fri03/14/23 at 0922, For 24 hours EPINEPHrine 1 MG/ML inj 0.3 mg 0.3 mg, Intramuscular, ONCE PRN Other, Hypersensitivity Reaction or Anaphylaxis, Starting on Liz 03/13/23 at 0923, Until Fri03/14/23 at 0922, For 24 hours hEParin 100 UNIT/ML Lock Flush inj 500 Units 500 Units (5 mL), IV Lock, PRN Other, IV Flush, Starting on Liz 03/13/23 at 0923, Until Fri03/14/23 at 0922, For 24 hours, Do not flush if lock, PICC, or central line not in place; IV infusing or unable to flush. Hydrocortisone Sod Suc (PF) (Solu-Cortef) inj 100 mg 100 mg, IV Push, ONCE PRN Other, Hypersensitivity Reaction, Starting on Fri03/13/23 at 0923, Until Fri03/14/23 at 0922, For 24 hours LORAzepam (Ativan) tab 0.5 mg 0.5 mg, Oral, ONCE PRN Anxiety, Nausea, Starting on Fri03/13/23 at 1030, Until Discontinued oxygen GAS Inhalation, OXYGEN, First dose on Fri03/13/23 at 1000, Until Discontinued, Device/Managed by: Low Flow Device, Goal SPO2 (%): 91-95, Starting Device: Nasal Cannula, Initial Flow Rate (LPM): 2, Lowest Support: Nasal Cannula: Flow 0-6 LPM. Titrate up/down by 1 LPM., Higher Support: Non-Rebreather (NRB) Mask: Minimum of 10 LPM. Titrate to maintain bag inflation., Titration Interval: Q2 minutes and as needed., Notify Provider: For sudden DECREASE in resting SPO2 to less than 85% and when escalating delivery device., Wean patient off Oxygen when the oxygen saturation is greater than or equal to 93% sodium chloride 0.9 % flush central line 10 mL 10 mL, IV Push, PRN Other, IV Flush, Starting on Fri03/13/23 at 0923, Until Fri03/14/23 at 0922, For 24 hours, Do not flush if lock, PICC, or central line not in place; IV infusing or unable to flush. Inactive Administered Medications - up to 3 most recent administrations Medication Order MAR Action Action Date Dose Rate Site CISplatin (Platinol) 68 mg in NSS 250 mL infusion 68 mg (rounded from 68.8 mg = 40 mg/m2 1.72 m2 Treatment Plan BSA from Recorded weight), IV Piggyback, Administer over 60 Minutes, PROTECT FROM LIGHT During radiation therapy only., ONCE, 1 dose, On Fri03/13/23 at 1100 Start Infusion 03/13/2023 11:24 AM EST 68 mg 250 mL/hr Fosaprepitant Dimeglumine (Emend) 150 mg, ondansetron (Zofran) 16 mg, dexamethasone sodium phosphate 12 mg in NSS 250 mL Infusion 150 mg, IV Piggyback, ONCE, 1 dose, On Liz 03/13/23 at 1030, Administer over 30 Minutes, Give 30 minutes prior to chemotherapy. Infuse over 30 minutes. Start Infusion 03/13/2023 10:51 AM EST 150 mg 500 mL/hr Furosemide (Lasix) inj 20 mg 20 mg, IV Push, ONCE, On Liz 03/13/23 at 1000, For 1 dose Given 03/13/2023 12:30 PM EST 20 mg NSS 1,000 mL with magnesium sulfate 1 g, potassium chloride 20 mEq infusion Intravenous, at 500 mL/hr Administer over 2 Hours, Post-cisplatin hydration, ONCE, 1 dose, On Liz 03/13/23 at 1200 Given 03/13/2023 12:30 PM EST 500 mL/hr NSS infusion 1,000 mL, Intravenous, at 500 mL/hr Administer over 2 Hours, Pre-cisplatin hydration, CONTINUOUS, Starting on Liz 03/13/23 at 1000, Until Liz 03/13/23 at 1159 Start Infusion 03/13/2023 9:26 AM EST 1,000 mL 500 mL/hr documented in this encounter Care Teams Legal Contracts Specialist Relationship Specialty Start Date End Date Alida Aceves MD [address] [place] [address] PCP - General Internal Medicine 08/15/22 documented as of this encounter
--- OUTSIDE RECORDS SUMMARY | 2023-03-19 15:10 | External Medical Summary ---
Author Name Unknown Address Unknown Organization [id number] [address] [place] [address] Laboratory Report Ordering Provider Test Date Status MAULIK KANG 03/13/2023 08:02:06 Final Observation Date Value Abnormality Reference (Units ) Status BUN 03/13/2023 08:02:06 27 Above high normal 6-20 (mg/dL) Final Creatinine 03/13/2023 08:02:06 0.8 0.6-1.2 (mg/dL) Final Glomerular filtration rate/1.73 sq M.predicted [Volume Rate/Area] in Serum, Plasma or Blood by Creatinine-based formula (CKD-EPI) 03/13/2023 08:02:06 >90 >=60 (mL/min) Final eGFR is calculated based on the CKD-EPI 2020 equation SODIUM 03/13/2023 08:02:06 134 Below low normal 135 -146 (mmol/L) Final Potassium 03/13/2023 08:02:06 4.2 3.5-5.1 (m mol/L) Final Cl 03/13/2023 08:02:06 93 Below low normal 98- 107 (mmol/L) Final CO2 03/13/2023 08:02:06 28 22-32 (mmo l/L) Final Anion gap 03/13/2023 08:02:06 13 7-15 (mmol /L) Final Glucose 03/13/2023 08:02:06 133 Above high normal 70 -120 (mg/dL) Final Albumin 03/13/2023 08:02:06 3.7 Below low normal 3.8 -5.0 (g/dL) Final AST (Aspartate aminotransferase) 03/13/2023 08:02:06 16 10-50 (U/L) Fin al Alk Phos 03/13/2023 08:02:06 100 35-130 (U/ L) Final Bilirubin, Total 03/13/2023 08:02:06 0.5 <=1 .2 (mg/dL) Final Calcium 03/13/2023 08:02:06 9.7 8.4-10.2 ( mg/dL) Final Protein 03/13/2023 08:02:06 7.6 6.0-8.3 (g /dL) Final ALT (Alanine aminotransferase) 03/13/2023 08:02:06 11 10-50 (U/L) [place] Performing Location [facility] [address] [place] [address]
--- OUTSIDE RECORDS SUMMARY | 2023-03-19 15:10 | External Medical Summary | Summary of Care ---
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) Procedures CT CHEST WO CONTRAST Felipe Hernandez MD [address] [place] [address] Referral ID Status Reason Start Date Expiration Date V isits Requested Visits Authorized [id number] Pending Review 04/10/2023 999 999 Reason for Visit * Reason Onset Date Comments Test Results 12/17/2022 F/U CT ches t Encounter Details Date Type Department Care Team (Late st Contact Info) Description 12/17/2022 Telephone Pulmonary Medicine Brea Null [address] [place] [phone] Felipe Hernandez MD [address] [place] [id number] Test Results (F/U CT chest) Allergies No known active allergiesdocumented as of this encounter (statuses as of 03/18/2023) Medications Medication Sig Dispensed Refills Start Date End Date Status Nystatin 130265 UNIT/ML Mouth/Throat Suspension Swish and swallow 5 mL in the morning and 5 mL at noon and 5 mL in the evening and 5 mL before bedtime. For thrush.. 240 mL 1 10/28/2022 Active Mirtazapine 7.5 MG Oral Tablet (Remeron)Indication s:Weight loss Take 1 Tablet by mouth at bedtime. 30 Tablet 3 10/30/2022 Active Additional Information Patient not taking.Reported on 01/15/2023 Voriconazole 200 MG Oral Tablet (Vfend) Take 1 Tablet by mouth in the morning and 1 Tablet before bedtime. 60 Tablet 5 01/09/2023 Active Hospital, Clinic, or Other Facility Administered [...] as of this encounter (statuses as of 03/18/2023) Active Problems Problem Noted Date Diagnosed Date Cancer of base of tongue 01/08/2023 Encounter for antineoplastic chemotherapy 2022 Centrilobular emphysema 11/11/2022 Cavitary lung disease 10/15/2022 Pain in limb 04/04/2008 Family history of ischemic heart disease 009 Routine medical exam 03/22/2008 Tobacco use disorder 03/22/2008 Venous insufficiency 10/14/2002 documented as of this encounter (statuses as of 03/18/2023) Resolved Problems Problem Noted Date Diagnosed Date Resolved Date 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 He will then need a repeat CT scan of the chest in 3 months, further treatment will be dependent on that result. Repeat CT scheduled for * Telephone Encounter - Felipe Hernandez MD - 01/09/2023 4:14 PM EST Let's try patient on voriconazole for 3 months and see with a repeat CT chest Medication and CT chest ordered Thank you * Telephone Encounter - Leatha Woodson LPN - 01/09/2023 8:46 AM EST Final fungus cultures are back for your review. * Telephone Encounter - Leatha Woodson LPN - 12/18/2022 11:03 AM EST Pt aware of the results and that we will call him back when the final cultures get back. * Telephone Encounter - Leatha Woodson LPN - 12/18/2022 9:35 AM EST Message left for the patient to call the office back in regards to the results. * Telephone Encounter - Felipe Hernandez MD - 12/17/2022 7:53 PM EST GMS stain on the cell block is positive for fungal hyphal elements that are morphologically suggestive of Aspergillus, and negative for pneumocystis. Correlation with imaging and microbial cultures is essential. The findings in this case were discussed with on 12/16/2022 at 11:20am via secure messaging with confirmation. No viral inclusions identified. Comment: The histological sections of the cellblock preparation are cellular with numerous neutrophils, suggestive of an acute inflammatory process, like pneumonia. Differential cell count: Lymphocytes 7%, Neutrophils 86%, Monocytes 4%, Eosinophils 3%. As noted above No evidence of malignancy noted Preliminary result is suggestive of aspergillus infection Let's wait for further culture results Thank you * Telephone Encounter - Leatha Woodson LPN - 12/17/2022 11:03 AM EST Pt called the office requesting the results of his EBUS. He was made aware that Dr. Hernandez is workingin the hospital this week and we will send him a message to review the results. Please review and advise. documented in this encounter Plan of Treatment Upcoming Encounters Date Type Department Care Team (Late st Contact Info) Description 03/20/2023 7:20 AM EST Laboratory Laboratory [place] Armstrong [address] [place] [phone] Patti, [facility] [address] [place] [address] 03/20/2023 8:00 AM EST Office Visit Hematology/Oncology [place] Ami Napier [address] [place] [address] Blanka Nixon, SKIP MINER [address] [facility] [place] [address] 03/20/2023 8:30 AM EST Hem/Onc Treatment Hematology/Oncology Treatment, [place] [address] [place] [address] [place], Chair 4 Hem Onc [place] [address] [place] [address] 03/26/2023 10:00 AM EST Nutrition Services Nutrition, [facility] [place] [address] Jaqui Edouard, JOHN [facility] [place] [address] 04/04/2023 11:20 AM EST Office Visit Nutrition & Weight Management, [facility] 132 [facility] [place] [address] Penelope Celaya PA-C [address] [facility] [place] [address] 04/10/2023 9:15 AM EST Imaging Radiology [facility] 1st [facility] [address] 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
--- OUTSIDE RECORDS SUMMARY | 2023-03-19 15:10 | External Medical Summary ---
Author Name Unknown Address Unknown Organization K09[facility] [address] [address] Laboratory Report Ordering Provider Test Date Status MAULIK KANG 03/13/2023 08:02:06 Final Observation Date Value Abnormality Reference (Units ) Status SYNC LEUKOCYTES IN BLOOD BY AUTOMATED COUNT 03/13/2023 08:02:06 8.11 4.00-10.80 (K/uL) Final Segs 03/13/2023 08:02:06 88.8 Above high normal 40.0-75.0 (%) Final Lymphs % 03/13/2023 08:02:06 5.5 Below low normal 18.0-42.0 (%) Final Monos 03/13/2023 08:02:06 4.4 1.0-11.0 (%) Final Eosinophils 03/13/2023 08:02:06 1.1 0.0-6.0 (%) Final Basos 03/13/2023 08:02:06 0.2 0.0-2.0 (%) Final Absolute Segs 03/13/2023 08:02:06 7.19 1.80-7.70 (K/uL) Final Lymphs, absolute 03/13/2023 08:02:06 0.45 Below low normal 1.00-4.80 (K/ul) Final Monos, Abs 03/13/2023 08:02:06 0.36 0.00-1.10 (K/uL) Final Eos, Abs 03/13/2023 08:02:06 0.09 0.00-0.70 (K/uL) Final Basos, Abs 03/13/2023 08:02:06 0.02 0.00-0.20 (K/uL) Final Performing Location [facility] [place] [address]
--- OUTSIDE RECORDS SUMMARY | 2023-03-19 15:10 | External Medical Summary | Summary of Care ---
Author Name Unknown Organization [facility] Address [address] [place] [address] Phone [phone] Care Team Providers Care Machinery Mechanic Name Role Phone Alida Aceves MD Primary Care Provider [phone] Reason for Visit * Reason Comments Outpatient Testing Encounter Details Date Type Department Care Team (Late st Contact Info) Description 03/13/2023 7:40 AM EST Laboratory Laboratory Scenery [facility] [address] [place] [phone] [facility] [address] [place] [address] Cancer of base of tongue (HCC) Allergies No known active allergiesdocumented as of this encounter (statuses as of 03/13/2023) Medications Medication Sig Dispensed Refills Start Date End Date Status Nystatin 610533 UNIT/ML Mouth/Throat Suspension Swish and swallow 5 [...] directed through feeding tube via bolus syringe. 07558 mL 11 01/10/2023 Active Additional Information Patient [...] on file documented as of this encounter Plan of Treatment Upcoming Encounters Date Type Department Care Team (Late st Contact Info) Description 03/13/2023 8:45 AM EST Hem/Onc Treatment Hematology/Oncology [address] [address] Patti, Chair 2 Hem [place] [place] [address] Arrived 03/20/2023 7:20 AM EST Laboratory Laboratory [facility] [address] [place] [phone] Patti [facility] [address] [place] [address] 03/20/2023 8:00 AM EST Office Visit Hematology/Oncology [address] [place] [address] Blanka Nixon CRNP [address] [facility] [place] [address] 03/20/2023 8:30 AM EST Hem/Onc Treatment Hematology/Oncology [address] [address] Patti, Chair 4 Hem Onc Scenery [address] [place] [address] 03/26/2023 10:00 AM EST Nutrition Services Nutrition, [facility] [address] [facility] [place] [address] Jaqui Edouard, BHAVIKN [address] [facility] [place] [address] 04/04/2023 11:20 AM EST Office Visit Nutrition & Weight Management, [facility] [address] [facility] [place] [address] Penelope Celaya PA-C [address] [facility] [place] [address] 04/10/2023 9:00 AM EST Imaging Radiology [facility] 1st Floor, [place] [address] [facility] [place] [address] 07/02/2023 3:20 PM EDT Office Visit Pulmonary Medicine Brea Null [address] [place] [phone] Felipe Hernandez MD [address] [place] [address] Pending Results Name Type Priority Associated Diagnoses Date /Time COMPREHENSIVE METABOLIC PANEL Lab STAT Cancer of base of tongue (HCC) 03/13/2023 8:02 AM EST MAGNESIUM Lab STAT Cancer of base of tongue (HCC) 03/13/2023 8:02 AM EST Health Maintenance Due Date Last Done Comments [...] (FLU shot) (#1) 2022 DISCUSS TOBACCO CESSATION (Alma Delia FUENTES TO SMARTSET #[id number]) 10/16/2023 10/15/2022 O2 ASSESSMENT COMPLETED IN P [...] Not on filedocumented as of this encounter Procedures Procedure Name Priority Date/Time Associated Diagnosis Comments DIFFERENTIAL, AUTOMATED STAT 03/13/2023 8:02 AM EST Cancer of base of tongue (HCC) CBC STAT 03/13/2023 8:02 AM EST Cancer of base of tongue (HCC) CBC STAT 03/13/2023 8:02 AM EST Cancer of base of tongue (HCC) documented in this encounter Results * (ABNORMAL) DIFFERENTIAL, AUTOMATED (03/13/2023 8:02 AM EST) WBC 8.11 4.00 - 10.80 K/uL 03/13/2023 8:07 AM EST [facility] 56-02 Neutrophils % 88.8(H) 40.0 - 75.0 % 03/13/2023 8:07 AM EST [facility] 56-02 Lymphocytes % 5.5(L) 18.0 - 42.0 % 03/13/2023 8:07 AM EST [facility] 56-02 Monocytes % 4.4 1.0 - 11.0 % 03/13/2023 8:07 AM EST [facility] 56-02 Eosinophils % 1.1 0.0 - 6.0 % 03/13/2023 8:07 AM [facility] 56 Basophils % 0.2 0.0 - 2.0 % 03/13/2023 8:07 AM [facility] 56 Absolute Neutrophils 7.19 1.80 - 7.70 K/uL 03/13/2023 8:07 AM [facility] 56 Absolute Lymphocytes 0.45(L) 1.00 - 4.80 K/ul 03/13/2023 8:07 AM [facility] 56 Absolute Monocytes 0.36 0.00 - 1.10 K/uL 03/13/2023 8:07 AM [facility] 56 Absolute Eosinophils 0.09 0.00 - 0.70 K/uL 03/13/2023 8:07 AM [facility] 56 Absolute Basophils 0.02 0.00 - 0.20 K/uL 03/13/2023 8:07 AM [facility] 56 Blood Venous blood specimen / Unknown Venipuncture / Unknown 03/13/2023 8:02 AM EST 03/13/2023 8:02 AM EST Tevin Kenney MD LAB BLOOD ORDERABLES [facility] [address] [place] [address] * (ABNORMAL) CBC (03/13/2023 8:02 AM EST) WBC 8.11 4.00 - 10.80 K/uL 03/13/2023 8:07 AM [facility] 56 RBC 3.85 4.50 - 5.25 M/uL 03/13/2023 8:07 AM [facility] 56 HGB 12.0(L) 14.0 - 16.8 g/dL 03/13/2023 8:07 AM [facility] 56 HCT 37.6(L) 40.0 - 48.4 % 03/13/2023 8:07 AM [facility] 56 MCV 97.7 82.0 - 99.5 fL 03/13/2023 8:07 AM [facility] 56 MCH 31.2 27.0 - 34.0 pg 03/13/2023 8:07 AM [facility] 56 MCHC 31.9 32.0 - 36.0 g/dL 03/13/2023 8:07 AM [facility] 56 RDW 14.8 11.5 - 15.5 % 03/13/2023 8:07 AM [facility] 56 PLT 172 140 - 400 K/uL 03/13/2023 8:07 AM [facility] 56 MPV 9.3 6.6 - 11.1 fL 03/13/2023 8:07 AM [facility] 56 Blood Venous blood specimen / Unknown Venipuncture / Unknown 03/13/2023 8:02 AM EST 03/13/2023 8:02 AM EST Tevin Kenney MD LAB BLOOD ORDERABLES Performing Organization Address City/State/[facility] Co de Phone Number [facility] [address] [place] [address] documented in this encounter Visit Diagnoses Diagnosis Cancer of base of tongue (HCC) Malignant neoplasm of base of tongue documented in this encounter Care Teams Machinery Mechanic Relationship Specialty Start Date End Date Alida Aceves MD [address] [place] [address] PCP - General Internal Medicine 08/15/22 documented as of this encounter
[2023-03-19] MEDS ORDERED: ALBUT/IPRATROP 3MG/0.5MG NEB 3 ML VIAL NEB PRN (16:44)
[2023-03-19] MEDS ORDERED: ONDANSETRON INJ 2 MG/ML 2 ML VIAL IV PRN (16:44)
[2023-03-19] MEDS ORDERED: VANCOMYCIN HCL 750 MG in SODIUM CHLORIDE 0.9% 500 ML IV SCH (16:44)
[2023-03-19] MEDS ORDERED: FIRST - Mouthwash BLM 119 ML PO PRN (17:01)
[2023-03-19] MEDS: MoRPHine SULFATE 10 MG/0.5 ML UDP PO PRN (18:12)
[2023-03-19] MEDS ORDERED: PATIENT'S OWN ENTERAL FEEDING PEG SCH (18:15)
[2023-03-19] MEDS: SODIUM CHLORIDE 0.9% 1,000 ML IV SCH (19:22)
[2023-03-19] MEDS: TUBE FEEDING WATER FLUSH PEG SCH (19:22)
[2023-03-19] MEDS: CEFEPIME 2,000 MG in SYRINGE 0 ML IV SCH (20:22)
[2023-03-19] MEDS: VANCOMYCIN HCL 750 MG in SODIUM CHLORIDE 0.9% 250 ML IV SCH (22:21)
[2023-03-20] MEDS: PEPTAMEN 1.5 CAL 1,000 ML BAG PEG SCH (06:21)
[2023-03-20 08:05] LABS: ALC (manual) 0.09 K/uL (1.2-3.4); ANC (manual) 1.52 K/uL (1.4-6.5); Basophils # (manual) 0.02 K/uL (0-0.2); Basophils % (manual) 1 %; Dohle Bodies 1+; Eosinophils # (manual) 0.02 K/uL (0-0.50); Eosinophils % (manual) 1 %; Hematocrit (blood only) 22.8 % (42.0-52.0); Hemoglobin 7.6 g/dl (14.0-18.0); Lymphocytes # (manual) 0.09 K/uL (1.2-3.4); Lymphocytes % (manual) 5 %; Mean Corpuscular Hemoglobin 31.1 pg (25.0-34.0); Mean Corpuscular Hgb Conc 33.3 g/dL (32.0-36.0); Mean Corpuscular Volume 93.4 fL (80.0-100.0); Mean Platelet Volume 9.3 fL (9.4-12.4); Monocytes # (manual) 0.09 K/uL (0.11-0.59); Monocytes % (manual) 5 %; Neutrophils # (manual) 1.52 K/uL (1.40-6.50); Neutrophils % (manual) 88 %; Platelet Count 93 K/uL (130-400); RDW Standard Deviation 48.8 fL (36.4-46.3); Red Blood Count 2.44 M/uL (4.70-6.10); White Blood Count 1.73 K/ul (4.8-10.8)
[2023-03-20 08:07] LABS: BUN Creatinine Ratio 48.3 (10-20); Calcium 8.1 mg/dl (8.6-10.3); Creatinine Clr Calc Pharmacy 102.2 ml/min; Est GFR (African American) 125.8 ml/min; Est GFR (Non-African American) 108.5 ml/min; Magnesium 1.8 mg/dl (1.7-2.4); Potassium 4.2 mmol/L (3.5-5.1)
[2023-03-20] MEDS: KETOROLAC TROMETHAMINE 15 MG/ML VIAL IV PRN (10:10)
--- NOTE | 2023-03-20 15:30 | Hospitalist Progress Note ---
Date of Service March 20, 2023 Assessment & Plan (1) Pneumonia: (2) Sepsis: (3) Neutropenic fever: Plan: Patient is 62-year-old male with PMH squamous cell carcinoma of tongue, malnutrition, PEG tube status, right lung cavitary lesion, former tobacco use, former alcohol use presented to ER with fever/chills Febrile neutropenia Sepsis secondary to pneumonia Immunocompromise state in setting of squamous cell carcinoma of the tongue, cavitary right apical mass --CXR: Mild right lung base airspace opacities are suggestive of pneumonia. Cavitary right apical mass redemonstrated. Emphysema with chronic interstitial coarsenin -- Negative BioFire Procalcitonin 0.7 Lactate levels normalized with IV fluids -Blood cultures: no growth to date Continue neutropenic precautions Empirically on vancomycin, cefepime Continue IV fluids Supplemental oxygen as needed Consider pulmonology evaluation if needed Pancytopenia Anemia of chronic disease Secondary to chemotherapy Hemoglobin drop likely dilutional No obvious bleeding issues Monitor CBC and transfuse as needed (4) Hypomagnesemia: Plan: Hypomagnesemia Mild hyponatremia Replete electrolytes as needed Monitor (5) Pancytopenia due to antineoplastic chemotherapy: Plan: Monitor CBC (6) Hyponatremia: Plan: Management as above (7) 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 Tevin Kenney, radiation oncology Dr. Eleazar Kenney Needs follow-up with oncology on discharge (8) Severe malnutrition: Plan: BMI: 16 PEG tube status. Currently not taking oral secondary to oral mouth pain from radiation. Significant weight loss over past 8 months. PEG tube receiving tube feeds 6 time daily Continue home Nutren Dietitian consulted (9) Cavitary lesion of lung: Plan: Known right upper lung cavitary lesion Following with pulmonology outpatient. 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 DVT Px SCDs Heparin SQ Code Status Full Code Admission and Anticipated Discharge Date Admission Date: March 19, 2023 Subjective Patient is seen and examined at bedside Nonverbal at baseline Communicates with writing Admits to have oral pain Also reports cough and intermittent dizziness Denies any chest pain, dyspnea, nausea, vomiting, abdominal pain Review of Systems Review of Systems: All systems reviewed & are unremarkable except as noted in Subjective Physical Exam Physical Exam: Physical Exam: Vitals signs as noted above General Appearance: Thin, frail, chronic ill-appearing, no apparent distress Head: normocephalic, Atraumatic, + erythematous tongue Eyes: normal inspection, EOMI Neck: supple, Trachea midline Respiratory/Chest: Decreased breath sounds, CTA, No accessory muscle use Cardiovascular: S1, S2, No murmur Abdomen/GI:Soft, Non tender, Bowel sounds present Extremities/Musculoskeletal:normal inspection, no edema Neurologic/Psych:AAOX3, grossly no focal neurological deficits, + nonverbal Skin: normal color, warm Results & Data Results & Data Vital Signs (Past 12 Hours) Vital Signs Temp Pulse Pulse Resp BP Pulse Ox O2 Del Method 03/20/23 15:22 36.3 C L 66 18 89/59 L 100 Room Air 03/20/23 11:50 36.2 C L 63 19 95/55 L 99 Nasal Cannula 03/20/23 09:22 61 14 95/57 L 98 Nasal Cannula 03/20/23 08:32 35.8 C L 63 17 96/58 L 98 Room Air 03/20/23 06:00 68 O2 Flow Rate 03/20/23 15:22 03/20/23 11:50 03/20/23 09:22 3 03/20/23 08:32 03/20/23 06:00 Laboratory Results Short CBC 03/20/23 Range/Units 07:17 WBC 1.73 L (4.8-10.8) K/ul Hgb 7.6 L (14.0-18.0) g/dl Hct 22.8 L (42.0-52.0) % Plt Count 93 L (130-400) K/uL BMP 03/20/23 07:17 Sodium 133 L Potassium 4.2 Chloride 102 Carbon Dioxide 27 BUN 28 H Creatinine 0.58 L D Glucose 105 H Calcium 8.1 L (2) Sepsis Sepsis acute organ dysfunction status: unspecified Sepsis type: sepsis due to unspecified organism Qualified Code(s): A41.9 - Sepsis, unspecified organism
[2023-03-20] MEDS ORDERED: VANCOMYCIN HCL 750 MG in SODIUM CHLORIDE 0.9% 250 ML IV SCH (18:00)
[2023-03-20] MEDS: MoRPHine SULFATE 10 MG/0.5 ML UDP PO PRN (18:38)
[2023-03-20] MEDS: VANCOMYCIN HCL 1,000 MG in SODIUM CHLORIDE 0.9% 250 ML IV SCH (19:07)
[2023-03-20] MEDS: HEPARIN SOD 5,000 UNIT/0.5 ML VIAL SQ SCH (20:18)
[2023-03-21 06:55] LABS: BUN Creatinine Ratio 40.8 (10-20); Calcium 7.7 mg/dl (8.6-10.3); Creatinine Clr Calc Pharmacy 120.3 ml/min; Est GFR (African American) 134.8 ml/min; Est GFR (Non-African American) 116.3 ml/min; Magnesium 1.5 mg/dl (1.7-2.4); Potassium 3.9 mmol/L (3.5-5.1)
[2023-03-21 07:22] LABS: Hematocrit (blood only) 21.7 % (42.0-52.0); Hemoglobin 7.3 g/dl (14.0-18.0); Mean Corpuscular Hemoglobin 31.3 pg (25.0-34.0); Mean Corpuscular Hgb Conc 33.6 g/dL (32.0-36.0); Mean Corpuscular Volume 93.1 fL (80.0-100.0); Mean Platelet Volume 9.6 fL (9.4-12.4); Platelet Count 87 K/uL (130-400); RDW Standard Deviation 48.8 fL (36.4-46.3); Red Blood Count 2.33 M/uL (4.70-6.10)
[2023-03-21 08:48] LABS: ALC (manual) 0.18 K/uL (1.2-3.4); ANC (manual) 1.31 K/uL (1.4-6.5); Lymphocytes # (manual) 0.18 K/uL (1.2-3.4); Lymphocytes % (manual) 11 %; Monocytes # (manual) 0.11 K/uL (0.11-0.59); Monocytes % (manual) 7 %; Neutrophils # (manual) 1.31 K/uL (1.40-6.50); Neutrophils % (manual) 82 %
[2023-03-21] MEDS: ACETAMINOPHEN 325 MG TAB PO PRN (09:03)
[2023-03-21] MEDS: MAGNESIUM SULFATE / D5W 1 GM/100 ML BAG IV ONE (10:13)
[2023-03-21] MEDS: DOXYCYCLINE HYCLATE 100 MG CAP PO SCH (12:23)
--- NOTE | 2023-03-21 17:01 | Hospitalist Progress Note ---
Date of Service March 21, 2023 Assessment & Plan (1) Pneumonia: (2) Sepsis: (3) Neutropenic fever: Plan: Patient is 62-year-old male with PMH squamous cell carcinoma of tongue, malnutrition, PEG tube status, right lung cavitary lesion, former tobacco use, former alcohol use presented to ER with fever/chills Febrile neutropenia Sepsis secondary to pneumonia Immunocompromise state in setting of squamous cell carcinoma of the tongue, cavitary right apical mass --CXR: Mild right lung base airspace opacities are suggestive of pneumonia. Cavitary right apical mass redemonstrated. Emphysema with chronic interstitial coarsenin -- Negative BioFire Procalcitonin 0.7 Lactate levels normalized with IV fluids -Blood cultures: no growth to date Continue neutropenic precautions Empirically on vancomycin, cefepime>> doxycycline and cefepime Received IV fluids Supplemental oxygen as needed Consider pulmonology evaluation if needed Persistent neutropenia Continue above management Pancytopenia Anemia of chronic disease Secondary to chemotherapy Hemoglobin drop likely dilutional No obvious bleeding issues Monitor CBC and transfuse as needed Hb 7.3 today Blood consent obtained Will transfuse PRBCs if hemoglobin drops below 7 (4) Hypomagnesemia: Plan: Hypomagnesemia Replace and monitor Hyponatremia ? 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 Tevin Kenney, radiation oncology Dr. Eleazar Kenney Needs follow-up with oncology on discharge (8) Severe malnutrition: Plan: BMI: 16 PEG tube status. Currently not taking oral secondary to oral mouth pain from radiation. Significant weight loss over past 8 months. PEG tube receiving tube feeds 6 time daily Continue home Nutren Dietitian consulted (9) Cavitary lesion of lung: Plan: Known right upper lung cavitary lesion Following with pulmonology outpatient. 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 DVT Px SCDs Heparin SQ--May need to hold if thrombocytopenia worsens Code Status Full Code Admission and Anticipated Discharge Date Admission Date: March 19, 2023 Subjective Patient is seen and examined at bedside Nonverbal at baseline Communicates with writing on clipboard Subjectively feels better today Oral/tongue pain is controlled Cough better Denies any chest pain, dyspnea, nausea, vomiting, abdominal pain Saturating well on room air Review of Systems Review of Systems: All systems reviewed & are unremarkable except as noted in Subjective Physical Exam Physical Exam: Physical Exam: Vitals signs as noted above General Appearance: Thin, frail, chronic ill-appearing, no apparent distress Head: normocephalic, Atraumatic, + erythematous tongue Eyes: normal inspection, EOMI Neck: supple, Trachea midline Respiratory/Chest: Decreased breath sounds, CTA, No accessory muscle use Cardiovascular: S1, S2, No murmur Abdomen/GI:Soft, Non tender, Bowel sounds present Extremities/Musculoskeletal:normal inspection, no edema Neurologic/Psych:AAOX3, grossly no focal neurological deficits, + nonverbal Skin: normal color, warm Results & Data Results & Data Vital Signs (Past 12 Hours) Vital Signs Temp Pulse Resp BP Pulse Ox O2 Del Method 03/21/23 11:38 36.1 C L 70 14 127/72 96 Room Air 03/21/23 08:25 36.9 C 71 16 111/70 94 Room Air Laboratory Results Short CBC 03/21/23 Range/Units 06:08 WBC 1.60 L (4.8-10.8) K/ul Hgb 7.3 L (14.0-18.0) g/dl Hct 21.7 L (42.0-52.0) % Plt Count 87 L (130-400) K/uL BMP 03/21/23 06:08 Sodium 130 L Potassium 3.9 Chloride 99 Carbon Dioxide 28 BUN 20 Creatinine 0.49 L Glucose 123 H Calcium 7.7 L (2) Sepsis Sepsis acute organ dysfunction status: unspecified Sepsis type: sepsis due to unspecified organism Qualified Code(s): A41.9 - Sepsis, unspecified organism
[2023-03-21 20:31] LABS: Hematocrit (blood only) 21.4 % (42.0-52.0); Hemoglobin 7.4 g/dl (14.0-18.0)
[2023-03-22 06:11] LABS: Hematocrit (blood only) 24.8 % (42.0-52.0); Hemoglobin 8.4 g/dl (14.0-18.0); Mean Corpuscular Hemoglobin 31.1 pg (25.0-34.0); Mean Corpuscular Hgb Conc 33.9 g/dL (32.0-36.0); Mean Corpuscular Volume 91.9 fL (80.0-100.0); Mean Platelet Volume 9.3 fL (9.4-12.4); Platelet Count 123 K/uL (130-400); RDW Coefficient of Variation 14.8 % (11.5-14.5); RDW Standard Deviation 47.4 fL (36.4-46.3); White Blood Count 1.55 K/ul (4.8-10.8)
[2023-03-22 06:28] LABS: BUN Creatinine Ratio 31.1 (10-20); Calcium 7.8 mg/dl (8.6-10.3); Creatinine Clr Calc Pharmacy 137.3 ml/min; Est GFR (African American) 139.6 ml/min; Est GFR (Non-African American) 120.4 ml/min; Magnesium 1.5 mg/dl (1.7-2.4); Potassium 3.7 mmol/L (3.5-5.1)
[2023-03-22 06:58] LABS: Basophils # (auto) 0.01 K/uL (0.00-0.20); Basophils % (auto) 0.6 %; Dohle Bodies 1+; Immature Granulocytes # (auto) 0.01 K/uL (0.01-0.20); Immature Granulocytes % (auto) 0.6 %; Lymphocytes # (auto) 0.19 K/uL (1.20-3.40); Lymphocytes % (auto) 12.3 %; Monocytes # (auto) 0.16 K/uL (0.11-0.59); Monocytes % (auto) 10.3 %; Neutrophils # (auto) 1.18 K/uL (1.40-6.50); Neutrophils % (auto) 76.2 %
[2023-03-22] MEDS: DOCUSATE SODIUM 100 MG CAP PO SCH (08:35)
[2023-03-22] MEDS: MAGNESIUM SULFATE / D5W 1 GM/100 ML BAG IV SCH (09:55)
--- NOTE | 2023-03-22 14:04 | Hospitalist Progress Note ---
Date of Service March 22, 2023 Assessment & Plan (1) Pneumonia: (2) Sepsis: (3) Neutropenic fever: Plan: Patient is 62-year-old male with PMH squamous cell carcinoma of tongue, malnutrition, PEG tube status, right lung cavitary lesion, former tobacco use, f ormer alcohol use presented to ER with fever/chills Febrile neutropenia Sepsis secondary to pneumonia Immunocompromise state in setting of squamous cell carcinoma of the tongue, cavitary right apical mass --CXR: Mild right lung base airspace opacities are suggestive of pneumonia. Cavitary right apical mass redemonstrated. Emphysema with chronic interstitial coarsenin -- Negative BioFire Procalcitonin 0.7 Lactate levels normalized with IV fluids -Blood cultures: no growth to date Continue neutropenic precautions Empirically on vancomycin, cefepime>> doxycycline and cefepime Received IV fluids Supplemental oxygen as needed Consider pulmonology evaluation if needed Clinically with slow improvement Has been afebrile for 2 days Monitor CBC Pancytopenia Anemia of chronic disease Secondary to chemotherapy Hemoglobin drop likely dilutional No obvious bleeding issues Monitor CBC and transfuse as needed Hb 8.4 today Blood consent obtained Will transfuse PRBCs if hemoglobin drops below 7 (4) Hypomagnesemia: Plan: Hypomagnesemia Replace and monitor Hyponatremia ? 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 Tevin Kenney, radiation oncology Dr. Eleazar Kenney Needs follow-up with oncology on discharge (8) Severe malnutrition: Plan: BMI: 16 PEG tube status. Currently not taking oral secondary to oral mouth pain from ra diation. Significant weight loss over past 8 months. PEG tube receiving tube feeds 6 time daily Continue home Nutren Dietitian consulted (9) Cavitary lesion of lung: Plan: Known right upper lung cavitary lesion Following with pulmonology outpatient. 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 DVT Px SCDs Heparin SQ--May need to hold if thrombocytopenia worsens Code Status Full Code Admission and Anticipated Discharge Date Admission Date: March 19, 2023 Subjective Patient is seen and examined at bedside Nonverbal at baseline, Communicates with writing on clipboard and Nodding Less cough today Denies any dyspnea Oral/tongue pain is controlled Denies any chest pain, dyspnea, nausea, vomiting, abdominal pain Review of Systems Review of Systems: All systems reviewed & are unremarkable except as noted in Subjective Physical Exam Physical Exam: Physical Exam: Vitals signs as noted above General Appearance: Thin, frail, chronic ill-appearing, no apparent distress Head: normocephalic, Atraumatic, + erythematous tongue Eyes: normal inspection, EOMI Neck: supple, Trachea midline Respiratory/Chest: Decreased breath sounds, CTA, No accessory muscle use Cardiovascular: S1, S2, No murmur Abdomen/GI:Soft, Non tender, Bowel sounds present Extremities/Musculoskeletal:normal inspection, no edema Neurologic/Psych:AAOX3, grossly no focal neurological deficits, + nonverbal Skin: normal color, warm Results & Data Results & Data Vital Signs (Past 12 Hours) Vital Signs Temp Pulse Pulse Resp BP Pulse Ox O2 Del Method 03/22/23 11:44 36.7 C 64 16 118/67 96 Room Air 03/22/23 07:54 36.7 C 73 16 119/73 97 Room Air 03/22/23 07:00 73 03/22/23 03:35 35.9 C L 69 20 113/63 95 Room Air Laboratory Results Short CBC 03/21/23 03/22/23 Range/Units 20:12 05:34 WBC 1.55 L (4.8-10.8) K/ul Hgb 7.4 L 8.4 L (14.0-18.0) g/dl Hct 21.4 L 24.8 L (42.0-52.0) % Plt Count 123 L (130-400) K/uL BMP 03/22/23 05:34 Sodium 130 L Potassium 3.7 Chloride 96 L Carbon Dioxide 30 BUN 14 Creatinine 0.45 L Glucose 114 H Calcium 7.8 L (2) Sepsis Sepsis acute organ dysfunction status: unspecified Sepsis type: sepsis due to unspecified organism Qualified Code(s): A41.9 - Sepsis, unspecified organism
[2023-03-23 06:30] LABS: Hematocrit (blood only) 23.7 % (42.0-52.0); Hemoglobin 8.1 g/dl (14.0-18.0); Mean Corpuscular Hgb Conc 34.2 g/dL (32.0-36.0); Mean Corpuscular Volume 90.8 fL (80.0-100.0); Mean Platelet Volume 9.2 fL (9.4-12.4); Platelet Count 148 K/uL (130-400); RDW Coefficient of Variation 15.2 % (11.5-14.5); RDW Standard Deviation 48.3 fL (36.4-46.3); Red Blood Count 2.61 M/uL (4.70-6.10); White Blood Count 1.48 K/ul (4.8-10.8)
[2023-03-23 07:02] LABS: BUN Creatinine Ratio 31.1 (10-20); Est GFR (African American) 139.6 ml/min; Est GFR (Non-African American) 120.4 ml/min; Magnesium 1.7 mg/dl (1.7-2.4); Potassium 4.3 mmol/L (3.5-5.1)
[2023-03-23 07:34] LABS: Immature Granulocytes # (auto) 0.01 K/uL (0.01-0.20); Immature Granulocytes % (auto) 0.7 %; Lymphocytes # (auto) 0.17 K/uL (1.20-3.40); Lymphocytes % (auto) 11.5 %; Monocytes # (auto) 0.25 K/uL (0.11-0.59); Monocytes % (auto) 16.9 %; Neutrophils # (auto) 1.05 K/uL (1.40-6.50); Neutrophils % (auto) 70.9 %
[2023-03-23] MEDS: POLYETHYLENE (MIRALAX) 17 GM PACK PO PRN (08:11)
[2023-03-23] MEDS: SODIUM CHLORIDE 0.9% 1,000 ML IV SCH (09:24)
[2023-03-23] MEDS: MAGNESIUM CHLORIDE W/CALCIUM 64MG DELAYED REL TAB PO SCH (10:10)
[2023-03-23] MEDS ORDERED: ZOLPIDEM TARTRATE 5 MG TAB PEG PRN (10:38)
[2023-03-23] MEDS: MAGNESIUM OXIDE 400 MG TAB PEG SCH (11:53)
--- NOTE | 2023-03-23 14:04 | Hospitalist Progress Note ---
Date of Service March 23, 2023 Assessment & Plan (1) Pneumonia: (2) Sepsis: (3) Neutropenic fever: Plan: Patient is 62-year-old male with PMH squamous cell carcinoma of tongue, malnutrition, PEG tube status, right lung cavitary lesion, former tobacco use, f ormer alcohol use presented to ER with fever/chills Febrile neutropenia Sepsis secondary to pneumonia Immunocompromise state in setting of squamous cell carcinoma of the tongue, cavitary right apical mass --CXR: Mild right lung base airspace opacities are suggestive of pneumonia. Cavitary right apical mass redemonstrated. Emphysema with chronic interstitial coarsenin -- Negative BioFire Procalcitonin 0.7 Lactate levels normalized with IV fluids -Blood cultures: no growth to date Continue neutropenic precautions Empirically on vancomycin, cefepime>> doxycycline and cefepime Received IV fluids Supplemental oxygen as needed Consider pulmonology evaluation if needed Persistent neutropenia Transition to p.o. antibiotics as able Pancytopenia Anemia of chronic disease Secondary to chemotherapy Hemoglobin drop likely dilutional No obvious bleeding issues Monitor CBC and transfuse as needed Hb 8.1 today Blood consent obtained Will transfuse PRBCs if hemoglobin drops below 7 Thrombocytopenia resolved (4) Hypomagnesemia: Plan: Hypomagnesemia Replace and monitor Hyponatremia Monitor sodium levels closely Sodium 281 today Will give IV fluids today Will consider nephrology evaluation if hyponatremia worsens (5) Pancytopenia due to antineoplastic chemotherapy: Plan: Monitor CBC (6) Hyponatremia: Plan: Management as above (7) 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 Tevin Kenney, radiation oncology Dr. Eleazar Kenney Needs follow-up with oncology on discharge (8) Severe malnutrition: Plan: BMI: 16 PEG tube status. Currently not taking oral secondary to oral mouth pain from radiation. Significant weight loss over past 8 months. PEG tube receiving tube feeds 6 time daily Continue home Nutren Dietitian consulted (9) Cavitary lesion of lung: Plan: Known right upper lung cavitary lesion Following with pulmonology outpatient. 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 DVT Px SCDs Heparin SQ Code Status Full Code Admission and Anticipated Discharge Date Admission Date: March 19, 2023 Subjective Patient is seen and examined at bedside Nonverbal at baseline, Communicates with writing on clipboard and Nodding Reports poor sleep Also states having minimal dyspnea on exertion No significant cough today Oral/tongue pain is controlled Denies any chest pain, dyspnea, nausea, vomiting, abdominal pain Review of Systems Review of Systems: All systems reviewed & are unremarkable except as noted in Subjective Physical Exam Physical Exam: Physical Exam: Vitals signs as noted above General Appearance: Thin, frail, chronic ill-appearing, no apparent distress Head: normocephalic, Atraumatic, + erythematous tongue Eyes: normal inspection, EOMI Neck: supple, Trachea midline Respiratory/Chest: Decreased breath sounds, CTA, No accessory muscle use Cardiovascular: S1, S2, No murmur Abdomen/GI:Soft, Non tender, Bowel sounds present Extremities/Musculoskeletal:normal inspection, no edema Neurologic/Psych:AAOX3, grossly no focal neurological deficits, + nonverbal Skin: normal color, warm Results & Data Results & Data Vital Signs (Past 12 Hours) Vital Signs Temp Pulse Resp BP Pulse Ox O2 Del Method 03/23/23 08:10 Room Air 03/23/23 08:06 36.8 C 61 16 137/71 96 Room Air 03/23/23 04:04 36.7 C 73 18 130/80 94 Room Air Laboratory Results Short CBC 03/23/23 Range/Units 06:00 WBC 1.48 L (4.8-10.8) K/ul Hgb 8.1 L (14.0-18.0) g/dl Hct 23.7 L (42.0-52.0) % Plt Count 148 (130-400) K/uL BMP 03/23/23 06:00 Sodium 128 L Potassium 4.3 Chloride 94 L Carbon Dioxide 30 BUN 14 Creatinine 0.45 L Glucose 115 H Calcium 8.0 L (2) Sepsis Sepsis acute organ dysfunction status: unspecified Sepsis type: sepsis due to unspecified organism Qualified Code(s): A41.9 - Sepsis, unspecified organism
[2023-03-24 05:50] LABS: Hematocrit (blood only) 24.5 % (42.0-52.0); Hemoglobin 8.2 g/dl (14.0-18.0); Mean Corpuscular Hemoglobin 30.8 pg (25.0-34.0); Mean Corpuscular Hgb Conc 33.5 g/dL (32.0-36.0); Mean Corpuscular Volume 92.1 fL (80.0-100.0); Mean Platelet Volume 8.6 fL (9.4-12.4); Platelet Count 167 K/uL (130-400); RDW Coefficient of Variation 15.7 % (11.5-14.5); RDW Standard Deviation 48.9 fL (36.4-46.3); Red Blood Count 2.66 M/uL (4.70-6.10); White Blood Count 1.76 K/ul (4.8-10.8)
[2023-03-24 06:29] LABS: BUN Creatinine Ratio 29.8 (10-20); Calcium 8.1 mg/dl (8.6-10.3); Creatinine Clr Calc Pharmacy 129.9 ml/min; Est GFR (African American) 137.1 ml/min; Est GFR (Non-African American) 118.3 ml/min; Magnesium 1.7 mg/dl (1.7-2.4); Potassium 4.2 mmol/L (3.5-5.1)
[2023-03-24 07:14] LABS: Anisocytosis Present; Basophils # (auto) 0.01 K/uL (0.00-0.20); Basophils % (auto) 0.6 %; Immature Granulocytes # (auto) 0.02 K/uL (0.01-0.20); Immature Granulocytes % (auto) 1.1 %; Lymphocytes # (auto) 0.22 K/uL (1.20-3.40); Lymphocytes % (auto) 12.5 %; Monocytes # (auto) 0.32 K/uL (0.11-0.59); Monocytes % (auto) 18.2 %; Neutrophils # (auto) 1.19 K/uL (1.40-6.50); Neutrophils % (auto) 67.6 %; Polychromasia 1+
--- NOTE | 2023-03-24 08:43 | XRay Report ---
XR chest 1V portable CLINICAL HISTORY: Pneumonia TECHNIQUE: Single frontal radiograph of the chest was obtained. Comparison: Comparison is made to chest radiograph 03/19/2023 FINDINGS: No lines and tubes are seen. The cardiomediastinal silhouette is normal. A density in the right upper lung is compatible with known mass. There is airspace opacity in the right lower lung. No evidence o f pleural effusion or pneumothorax. IMPRESSION: Airspace opacity in the right lower lung. This may represent atelectasis, pneumonia, and/or aspiratio n, and is more conspicuous than in the prior exam. Stable mass in the right apex. ACT 112: Negative or not required by law. Electronically signed by: Rajat Johns M.D. 03/24/2023 8:41 AM
--- NOTE | 2023-03-24 16:24 | Hospitalist Progress Note ---
Date of Service March 24, 2023 Assessment & Plan (1) Pneumonia: (2) Sepsis: (3) Neutropenic fever: Plan: Patient is 62-year-old male with PMH squamous cell carcinoma of tongue, malnutrition, PEG tube status, right lung cavitary lesion, former tobacco use, f ormer alcohol use presented to ER with fever/chills Febrile neutropenia Sepsis secondary to pneumonia Immunocompromise state in setting of squamous cell carcinoma of the tongue, cavitary right apical mass --CXR: Mild right lung base airspace opacities are suggestive of pneumonia. Cavitary right apical mass redemonstrated. Emphysema with chronic interstitial coarsenin -- Negative BioFire Procalcitonin 0.7 Lactate levels normalized with IV fluids -Blood cultures: no growth Continue neutropenic precautions Empirically on vancomycin, cefepime>> doxycycline and cefepime Received IV fluids Supplemental oxygen as needed Consider pulmonology evaluation if needed Neutropenia slowly improving Patient has [facility] at home Plan to discharge in 1 to 2 days if continues to improve clinically Pancytopenia Anemia of chronic disease Secondary to chemotherapy Hemoglobin drop likely dilutional No obvious bleeding issues Monitor CBC and transfuse as needed Hb 8.2 today Blood consent obtained Will transfuse PRBCs if hemoglobin drops below 7 Thrombocytopenia resolved Neutropenia improving (4) Hypomagnesemia: Plan: Hypomagnesemia Replace and monitor Hyponatremia Likely SIADH Poor oral intake contributing as well Sodium 130 today Monitor sodium levels (5) Pancytopenia due to antineoplastic chemotherapy: Plan: Monitor CBC (6) Hyponatremia: Plan: Management as above (7) 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 Tevin Kenney, radiation oncology Dr. Eleazar Kenney Needs follow-up with oncology on discharge (8) Severe malnutrition: Plan: BMI: 16 PEG tube status. Currently not taking oral secondary to oral mouth pain from radiation. Significant weight loss over past 8 months. PEG tube receiving tube feeds 6 time daily Continue home Nutren Dietitian consulted (9) Cavitary lesion of lung: Plan: Known right upper lung cavitary lesion Following with pulmonology outpatient. 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 DVT Px SCDs Heparin SQ Code Status Full Code Disposition Home as able Admission and Anticipated Discharge Date Admission Date: March 19, 2023 Subjective Patient is seen and examined at bedside Nonverbal at baseline, Communicates with writing on clipboard and Nodding Reports poor sleep Discussed with radiation oncology today States feeling tired Still has minimal cough Oral/tongue pain is controlled Denies any chest pain, dyspnea, nausea, vomiting, abdominal pain Neutropenia improving Review of Systems Review of Systems: All systems reviewed & are unremarkable except as noted in Subjective Physical Exam Physical Exam: Physical Exam: Vitals signs as noted above General Appearance: Thin, frail, chronic ill-appearing, no apparent distress Head: normocephalic, Atraumatic, + erythematous tongue Eyes: normal inspection, EOMI Neck: supple, Trachea midline Respiratory/Chest: Decreased breath sounds, CTA, No accessory muscle use Cardiovascular: S1, S2, No murmur Abdomen/GI:Soft, Non tender, Bowel sounds present Extremities/Musculoskeletal:normal inspection, no edema Neurologic/Psych:AAOX3, grossly no focal neurological deficits, + nonverbal Skin: normal color, warm Results & Data Results & Data Vital Signs (Past 12 Hours) Vital Signs Temp Pulse Pulse Resp BP Pulse Ox O2 Del Method 03/24/23 14:01 69 03/24/23 11:40 36.3 C L 65 16 131/78 96 Room Air 03/24/23 07:41 36.4 C L 65 18 120/68 96 Room Air 03/24/23 07:34 Room Air 03/24/23 05:57 60 03/24/23 04:48 36.5 C 66 16 117/75 95 Room Air Laboratory Results Short CBC 03/24/23 Range/Units 05:33 WBC 1.76 L (4.8-10.8) K/ul Hgb 8.2 L (14.0-18.0) g/dl Hct 24.5 L (42.0-52.0) % Plt Count 167 (130-400) K/uL BMP 03/24/23 05:33 Sodium 130 L Potassium 4.2 Chloride 98 Carbon Dioxide 27 BUN 14 Creatinine 0.47 L Glucose 123 H Calcium 8.1 L (2) Sepsis Sepsis acute organ dysfunction status: unspecified Sepsis type: sepsis due to unspecified organism Qualified Code(s): A41.9 - Sepsis, unspecified organism
[2023-03-25 06:30] LABS: Hematocrit (blood only) 24.8 % (42.0-52.0); Hemoglobin 8.3 g/dl (14.0-18.0); Mean Corpuscular Hgb Conc 33.5 g/dL (32.0-36.0); Mean Corpuscular Volume 92.5 fL (80.0-100.0); Mean Platelet Volume 8.8 fL (9.4-12.4); Platelet Count 219 K/uL (130-400); RDW Standard Deviation 50.4 fL (36.4-46.3); Red Blood Count 2.68 M/uL (4.70-6.10); White Blood Count 2.16 K/ul (4.8-10.8)
[2023-03-25 07:03] LABS: BUN Creatinine Ratio 34.7 (10-20); Basophils # (auto) 0.01 K/uL (0.00-0.20); Basophils % (auto) 0.5 %; Calcium 8.6 mg/dl (8.6-10.3); Creatinine Clr Calc Pharmacy 120.5 ml/min; Eosinophils # (auto) 0.01 K/uL (0.00-0.50); Eosinophils % (auto) 0.5 %; Est GFR (African American) 134.8 ml/min; Est GFR (Non-African American) 116.3 ml/min; Immature Granulocytes # (auto) 0.05 K/uL (0.01-0.20); Immature Granulocytes % (auto) 2.3 %; Lymphocytes % (auto) 13.9 %; Magnesium 1.9 mg/dl (1.7-2.4); Monocytes # (auto) 0.37 K/uL (0.11-0.59); Monocytes % (auto) 17.1 %; Neutrophils # (auto) 1.42 K/uL (1.40-6.50); Neutrophils % (auto) 65.7 %; Potassium 4.4 mmol/L (3.5-5.1)
--- NOTE | 2023-03-25 12:38 | Hospitalist Progress Note ---
Date of Service March 25, 2023 Assessment & Plan (1) Pneumonia: (2) Sepsis: (3) Neutropenic fever: Plan: Patient is 62-year-old male with PMH squamous cell carcinoma of tongue, malnutrition, PEG tube status, right lung cavitary lesion, former tobacco use, f ormer alcohol use presented to ER with fever/chills Febrile neutropenia Sepsis secondary to pneumonia Immunocompromise state in setting of squamous cell carcinoma of the tongue, cavitary right apical mass --CXR: Mild right lung base airspace opacities are suggestive of pneumonia. Cavitary right apical mass redemonstrated. Emphysema with chronic interstitial coarsenin -- Negative BioFire Procalcitonin 0.7 Lactate levels normalized with IV fluids -Blood cultures: no growth Continue neutropenic precautions Empirically on vancomycin, cefepime>> doxycycline and cefepime Received IV fluids Consider pulmonology evaluation if needed 2 step: Did not qualify for oxygen Neutropenia improved. Needs repeat blood work as outpatient Plan to be discharged home today Pancytopenia Anemia of chronic disease Secondary to chemotherapy Hemoglobin drop likely dilutional No obvious bleeding issues Monitor CBC and transfuse as needed Hb 8.3 today Blood consent obtained Will transfuse PRBCs if hemoglobin drops below 7 Thrombocytopenia resolved Neutropenia improved Advised to follow-up with oncology on discharge (4) Hypomagnesemia: Plan: Hypomagnesemia Replace and monitor Hyponatremia Likely SIADH Poor oral intake contributing as well Sodium 131 today Monitor sodium levels (5) Pancytopenia due to antineoplastic chemotherapy: Plan: Monitor CBC (6) Hyponatremia: Plan: Management as above (7) 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 Tevin Kenney, radiation oncology Dr. Eleazar Kenney Needs follow-up with oncology on discharge (8) Severe malnutrition: Plan: BMI: 16 PEG tube status. Currently not taking oral secondary to oral mouth pain from radiation. Significant weight loss over past 8 months. PEG tube receiving tube feeds 6 time daily Continue home Nutren Dietitian consulted (9) Cavitary lesion of lung: Plan: Known right upper lung cavitary lesion Following with pulmonology outpatient. 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 DVT Px SCDs Heparin SQ Code Status Full Code Disposition Home with Admission and Anticipated Discharge Date Admission Date: March 19, 2023 Subjective Patient is seen and examined at bedside Nonverbal at baseline, Communicates with writing on clipboard and Nodding No new complaints Cough much improved Oral/tongue pain is controlled Denies any chest pain, dyspnea, nausea, vomiting, abdominal pain Neutropenia continues to improve Plan to discharge home today Had 2 step earlier today Review of Systems Review of Systems: All systems reviewed & are unremarkable except as noted in Subjective Physical Exam Physical Exam: Physical Exam: Vitals signs as noted above General Appearance: Thin, frail, chronic ill-appearing, no apparent distress Head: normocephalic, Atraumatic, + erythematous tongue Eyes: normal inspection, EOMI Neck: supple, Trachea midline Respiratory/Chest: Decreased breath sounds, CTA, No accessory muscle use Cardiovascular: S1, S2, No murmur Abdomen/GI:Soft, Non tender, Bowel sounds present Extremities/Musculoskeletal:normal inspection, no edema Neurologic/Psych:AAOX3, grossly no focal neurological deficits, + nonverbal Skin: normal color, warm Results & Data Results & Data Vital Signs (Past 12 Hours) Vital Signs Temp Pulse Pulse Pulse Pulse Resp Resp 03/25/23 10:54 03/25/23 10:35 101 H 94 H 18 03/25/23 08:53 37.1 C 68 16 03/25/23 08:53 03/25/23 07:38 61 03/25/23 03:26 03/25/23 03:25 36.9 C 73 16 Resp BP Pulse Ox Pulse Ox Pulse Ox O2 Del Method O2 Flow Rate 03/25/23 10:54 95 Room Air 03/25/23 10:35 17 97 94 03/25/23 08:53 114/69 100 Nasal Cannula 4 03/25/23 08:53 Nasal Cannula 4 03/25/23 07:38 03/25/23 03:26 93 Nasal Cannula 3 03/25/23 03:25 108/69 77 L Room Air Laboratory Results Short CBC 03/25/23 Range/Units 05:50 WBC 2.16 L (4.8-10.8) K/ul Hgb 8.3 L (14.0-18.0) g/dl Hct 24.8 L (42.0-52.0) % Plt Count 219 (130-400) K/uL BMP 03/25/23 05:50 Sodium 131 L Potassium 4.4 Chloride 96 L Carbon Dioxide 29 BUN 17 Creatinine 0.49 L Glucose 111 H Calcium 8.6 (2) Sepsis Sepsis acute organ dysfunction status: unspecified Sepsis type: sepsis due to unspecified organism Qualified Code(s): A41.9 - Sepsis, unspecified organism
--- NOTE | 2023-03-25 12:46 | Discharge Summary ---
Date of Service March 25, 2023 Admission HPI Per Admitting Provider Patient is 62-year-old male with PMH squamous cell carcinoma of tongue, malnutrition, PEG tube status, right lung cavitary lesion, former tobacco use, former alcohol use presented to ER with complaint of feeling ill. Patient states today woke up and had generalized weakness, chills, and felt unwell. He also felt SOB today. States did not take his temperature at home. Reports chronic cough of white phlegm. Patient does not feel cough has increased or sputum production has increased. Patient currently receiving chemo and radiation. Has had progressive tongue and oral discomfort. Any movement of mouth or talking causes increased pain. He has been avoiding talking to limit oral pain. Patient uses tube feeds. Only thing he uses orally is morphine suspension every 4 hours hours for oral pain. States has mouthwash to use as needed for discomfort but has not been using that. Last chemo (cispltin) on 03/13/23. Patient states since starting radiation has had chronic headache and tinnitus and feels this is unchanged. States has BM's every couple of days. Denies diaphoresis, N/V/D, syncope, vision changes, neck pain, CP, orthopnea, palpitations, hemoptysis, sore throat, otalgia, rhinorrhea, abdominal pain, paresthesias, extremity edema, rashes, urinary symptoms. Admission Exam Per Admitting Provider General: chronic ill appearing, in no acute distress, thin male Head: normocephalic, atraumatic Eyes: PERRL, EOM's intact, conjunctiva non-injected, anicteric ENT: normal inspection external ears, nose. Mouth: +white plaques noted to tongue and palate, tongue erythematous, mucous membranes dry Neck: supple, trachea midline Lungs: clear, no respiratory distress on current 2L via NC with O2 sat 100%, Diminished breath sounds bases CV: regular rhythm and rate , no murmur, no pretibial edema Abd: normal BS, soft, non-tender Ext: no cyanosis, no calf tenderness Neuro: A&O x 3, no focal deficits noted, normal affect. Using pen and paper to communicate Skin: warm, dry Principal Diagnosis Febrile neutropenia Pneumonia Immunocompromise state Pancytopenia Anemia of chronic disease Hyponatremia--- likely SIADH Severe malnutrition Discharge Data Allergies Allergy/AdvReac Type Severity Reaction Status Date / Time No Known Allergies Allergy Unverified 03/17/23 09:53 Consultations 03/19/23 12:19 ED Decision to Admit Stat Procedures Performed Laboratory Results WBC 2.16 K/ul (4.8-10.8) L 03/25/23 05:50 RBC 2.68 M/uL (4.70-6.10) L 03/25/23 05:50 Hgb 8.3 g/dl (14.0-18.0) L 03/25/23 05:50 Hct 24.8 % (42.0-52.0) L 03/25/23 05:50 MCV 92.5 fL (80.0-100.0) 03/25/23 05:50 MCH 31.0 pg (25.0-34.0) 03/25/23 05:50 MCHC 33.5 g/dL (32.0-36.0) 03/25/23 05:50 RDW Std Deviation 50.4 fL (36.4-46.3) H 03/25/23 05:50 RDW Coeff of Suraj 16.0 % (11.5-14.5) H 03/25/23 05:50 Plt Count 219 K/uL (130-400) 03/25/23 05:50 MPV 8.8 fL (9.4-12.4) L 03/25/23 05:50 Immature Gran % (Auto) 2.3 % 03/25/23 05:50 Neut % (Auto) 65.7 % 03/25/23 05:50 Lymph % (Auto) 13.9 % 03/25/23 05:50 Avery % (Auto) 17.1 % 03/25/23 05:50 Eos % (Auto) 0.5 % 03/25/23 05:50 Baso % (Auto) 0.5 % 03/25/23 05:50 Neut # (Auto) 1.42 K/uL (1.40-6.50) 03/25/23 05:50 Lymph # (Auto) 0.30 K/uL (1.20-3.40) L 03/25/23 05:50 Avery # (Auto) 0.37 K/uL (0.11-0.59) 03/25/23 05:50 Eos # (Auto) 0.01 K/uL (0.00-0.50) 03/25/23 05:50 Baso # (Auto) 0.01 K/uL (0.00-0.20) 03/25/23 05:50 Immature Gran # (Auto) 0.05 K/uL (0.01-0.20) 03/25/23 05:50 Neutrophils % (Manual) 82 % 03/21/23 06:08 Lymphocytes % (Manual) 11 % 03/21/23 06:08 Monocytes % (Manual) 7 % 03/21/23 06:08 Eosinophils % (Manual) 1 % 03/20/23 07:17 Basophils % (Manual) 1 % 03/20/23 07:17 Neutrophils # (Manual) 1.31 K/uL (1.40-6.50) L 03/21/23 06:08 Total Absolute Neuts 1.31 K/uL (1.4-6.5) L 03/21/23 06:08 Lymphocytes # (Manual) 0.18 K/uL (1.2-3.4) L 03/21/23 06:08 Total Abs Lymphocytes 0.18 K/uL (1.2-3.4) L 03/21/23 06:08 Monocytes # (Manual) 0.11 K/uL (0.11-0.59) 03/21/23 06:08 Eosinophils # (Manual) 0.02 K/uL (0-0.50) 03/20/23 07:17 Basophils # (Manual) 0.02 K/uL (0-0.2) 03/20/23 07:17 Dohle Bodies 1+ 03/22/23 05:34 Polychromasia 1+ 03/24/23 05:33 Anisocytosis Present 03/24/23 05:33 PT 11.6 Seconds (9.0-12.0) 03/19/23 10:25 INR 1.1 (0.9-1.1) 03/19/23 10:25 APTT 25 Seconds (21-31) 03/19/23 10:25 PTT Ratio 0.9 03/19/23 10:25 VBG pH 7.40 (7.36-7.41) 03/19/23 10:56 VBG pCO2 50 mmHg (38-50) 03/19/23 10:56 VBG pO2 33 mmHg 03/19/23 10:56 VBG HCO3 31 mmol/L 03/19/23 10:56 VBG O2 Saturation TNP 03/19/23 10:56 VBG Base Excess 5.0 mEq/L 03/19/23 10:56 Barometric Pressure Cancelled 03/19/23 10:25 Sodium 131 mmol/L (136-145) L 03/25/23 05:50 Potassium 4.4 mmol/L (3.5-5.1) 03/25/23 05:50 Chloride 96 mmol/L (98-107) L 03/25/23 05:50 Carbon Dioxide 29 mmol/L (21-32) 03/25/23 05:50 Anion Gap 6 (3-11) 03/25/23 05:50 BUN 17 mg/dl (6-23) 03/25/23 05:50 Creatinine 0.49 mg/dl (0.6-1.4) L 03/25/23 05:50 Est Cr Clr Drug Dosing 120.5 ml/min 03/25/23 05:50 Est GFR ( Amer) 134.8 ml/min 03/25/23 05:50 Est GFR (Non-Af Amer) 116.3 ml/min 03/25/23 05:50 BUN/Creatinine Ratio 34.7 (10-20) H 03/25/23 05:50 Glucose 111 mg/dl (70-99(Fasting)) H 03/25/23 05:50 Osmolality 270 mOsm/kg (280-300) L 03/21/23 20:12 Lactate 1.3 mmol/L (0.4-2.0) 03/19/23 12:30 Calcium 8.6 mg/dl (8.6-10.3) 03/25/23 05:50 Magnesium 1.9 mg/dl (1.7-2.4) 03/25/23 05:50 Total Bilirubin 0.5 mg/dl (0.2-1.0) 03/19/23 10:25 Direct Bilirubin 0.1 mg/dl (0-0.2) 03/19/23 10:25 AST 14 U/L (13-39) 03/19/23 10:25 ALT 12 U/L (7-52) 03/19/23 10:25 Alkaline Phosphatase 67 U/L (34-104) 03/19/23 10:25 Troponin I High Sens 18.4 pg/ml (0-20) 03/19/23 10:25 Total Protein 6.5 gm/dl (6.0-8.3) 03/19/23 10:25 Albumin 3.1 gm/dl (3.4-5.0) L 03/19/23 10:25 Procalcitonin 0.73 ng/ml (0-0.5) H 03/19/23 10:25 Urine Color Dark Yellow 03/19/23 14:38 Urine Appearance Clear (Clear) 03/19/23 14:38 Urine pH 6.0 (4.5-7.5) 03/19/23 14:38 Ur Specific Sinclair 1.018 (1.000-1.030) 03/19/23 14:38 Urine Protein Trace (Negative) H 03/19/23 14:38 Urine Glucose (UA) Negative (Negative) 03/19/23 14:38 Urine Ketones Negative (Negative) 03/19/23 14:38 Urine Blood Negative (Negative) 03/19/23 14:38 Urine Nitrite Negative (Negative) 03/19/23 14:38 Urine Bilirubin Negative (Negative) 03/19/23 14:38 Urine Urobilinogen Negative (Negative) 03/19/23 14:38 Ur Leukocyte Esterase Negative (Negative) 03/19/23 14:38 Urine WBC (Auto) 1-5 /hpf (0-5) 03/19/23 14:38 Urine RBC (Auto) 0-4 /hpf (0-4) 03/19/23 14:38 U Hyaline Cast (Auto) 1-5 /lpf (0-5) 03/19/23 14:38 U Epithel Cells (Auto) 10-20 /lpf (0-5) H 03/19/23 14:38 Urine Bacteria (Auto) Negative (Negative) 03/19/23 14:38 Urine Osmolality 622 mOsm/kg (500-800) 03/21/23 17:50 Ur Random Sodium 167 mmol/L 03/21/23 17:50 Nasal Screen MRSA (PCR) Negative (Negative) 03/19/23 14:12 Adenovirus (PCR) Not Detected (NotDetected) 03/19/23 10:25 B. pertussis DNA (PCR) Not Detected (NotDetected) 03/19/23 10:25 B.parapertussis DNA PCR Not Detected (NotDetected) 03/19/23 10:25 C. pneumoniae DNA (PCR) Not Detected (NotDetected) 03/19/23 10:25 Coronavirus OC43 (PCR) Not Detected (NotDetected) 03/19/23 10:25 Coronavirus HKU1 (PCR) Not Detected (NotDetected) 03/19/23 10:25 Coronavirus 229E (PCR) Not Detected (NotDetected) 03/19/23 10:25 SARS-CoV-2 (PCR) Not Detected (NotDetected) 03/19/23 10:25 Coronavirus NL63 (PCR) Not Detected (NotDetected) 03/19/23 10:25 Human Metapneumovir PCR Not Detected (NotDetected) 03/19/23 10:25 Influenza Type A (PCR) Not Detected (NotDetected) 03/19/23 10:25 Influenza Type B (PCR) Not Detected (NotDetected) 03/19/23 10:25 M. pneumoniae (PCR) Not Detected (NotDetected) 03/19/23 10:25 Parainfluenza 1 (PCR) Not Detected (NotDetected) 03/19/23 10:25 Parainfluenza 2 (PCR) Not Detected (NotDetected) 03/19/23 10:25 Parainfluenza 3 (PCR) Not Detected (NotDetected) 03/19/23 10:25 Parainfluenza 4 (PCR) Not Detected (NotDetected) 03/19/23 10:25 RSV (PCR) Not Detected (NotDetected) 03/19/23 10:25 Entero/Rhino (PCR) Not Detected (NotDetected) 03/19/23 10:25 Impressions Chest X-Ray 03/24/23 07:00 XR chest 1V portable CLINICAL HISTORY: Pneumonia TECHNIQUE: Single frontal radiograph of the chest was obtained. Comparison: Comparison is made to chest radiograph 03/19/2023 FINDINGS: No lines and tubes are seen. The cardiomediastinal silhouette is normal. A density in the right upper lung is compatible with known mass. There is airspace opacity in the right lower lung. No evidence of pleural effusion or pneumothorax. IMPRESSION: Airspace opacity in the right lower lung. This may represent atelectasis, pneumonia, and/or aspiration, and is more conspicuous than in the prior exam. Stable mass in the right apex. ACT 112: Negative or not required by law. Electronically signed by: Rajat Johns M.D. 03/24/2023 8:41 AM Hospital Course (1) Pneumonia: (2) Sepsis: (3) Neutropenic fever: Patient is 62-year-old male with PMH squamous cell carcinoma of tongue, malnutrition, PEG tube status, right lung cavitary lesion, former tobacco use, former alcohol use presented to ER with fever/chills Febrile neutropenia Sepsis secondary to pneumonia Immunocompromise state in setting of squamous cell carcinoma of the tongue, cavitary right apical mass --CXR: Mild right lung base airspace opacities are suggestive of pneumonia. Cavitary right apical mass redemonstrated. Emphysema with chronic interstitial coarsenin -- Negative BioFire Procalcitonin 0.7 Lactate levels normalized with IV fluids -Blood cultures: no growth Continue neutropenic precautions Empirically on vancomycin, cefepime>> doxycycline and cefepime Received IV fluids Consider pulmonology evaluation if needed 2 step: Did not qualify for oxygen Neutropenia improved. Needs repeat blood work as outpatient Plan to be discharged home today Pancytopenia Anemia of chronic disease Secondary to chemotherapy Hemoglobin drop likely dilutional No obvious bleeding issues Monitor CBC and transfuse as needed Hb 8.3 today Blood consent obtained Will transfuse PRBCs if hemoglobin drops below 7 Thrombocytopenia resolved Neutropenia improved Advised to follow-up with oncology on discharge (4) Hypomagnesemia: Hypomagnesemia Replace and monitor Hyponatremia Likely SIADH Poor oral intake contributing as well Sodium 131 today Monitor sodium levels (5) Pancytopenia due to antineoplastic chemotherapy: Monitor CBC (6) Hyponatremia: Management as above (7) Cancer of oral cavity: 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 Tevin Kenney, radiation oncology Dr. Eleazar Kenney Needs follow-up with oncology on discharge (8) Severe malnutrition: BMI: 16 PEG tube status. Currently not taking oral secondary to oral mouth pain from radiation. Significant weight loss over past 8 months. PEG tube receiving tube feeds 6 time daily Continue home Nutren Dietitian consulted (9) Cavitary lesion of lung: Known right upper lung cavitary lesion Following with pulmonology outpatient. 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 DVT Px SCDs Heparin SQ Code Status Full Code Disposition Home with HH Total Time Total Time Spent Total Time Spent (In Minutes): 66 minutes Discharge Plan Discharge Items Patient Disposition: Home - Home Health Services Reason For Visit: FEVER Discharge Diagnosis: Febrile neutropenia Pneumonia Immunocompromise state Pancytopenia Anemia of chronic disease Hyponatremia--- likely SIADH Severe malnutrition Activity: Per Instructions section Exercise/Sports: Wait until after follow-up appointment Non-emergency contact: Primary Care Provider and Oncologist Call non-emergency contact if: you have any medication questions, your symptoms worsen, your pain is concerning for you and you have a fever Follow-up/Referrals: Alida Aceves MD [Outside Practitioners] - (Date & Time 03/28/2023 9:40 AM Provider Alida Aceves MD Department [facility] ) Dietitian Info: Tube Feeds Diet: Other - See Diet Comment Addtl Attending Provider Instructions: Follow-up with your primary care physician on 03/28/2023 9:40 AM Follow-up with your radiation oncologist Dr.Veeral Kenney for radiation therapy as advised Follow-up with your heme oncologist for further management of squamous cell carcinoma of tongue and neutropenia --- Complete antibiotic course cefdinir, doxycycline as prescribed. --- Obtain blood test (complete blood count with differential) in 1 week and follow-up with your oncologist for further recommendations. --Obtain blood test (basic metabolic panel) in 1 week and follow-up with your primary care physician for monitoring your sodium levels. Seek immediate medical attention if your symptoms reoccur or worsen Please take all medications as instructed on discharge list below. Please call if you have any questions or problems. You can reach a [facility] hospitalist on duty at [facility] 24 hours a day by calling [phone] Pending Studies at Discharge: No Stand-Alone Forms: My [facility] SVXR, Smoking Cessation Medications and DC Order Prescriptions: New doxycycline hyclate 100 mg Capsule 100 mg feeding tube BID Qty: 9 0RF magnesium oxide 400 mg (241.3 mg magnesium) Tablet 400 mg PEG QAM Qty: 30 0RF cefdinir 300 mg capsule 300 mg feeding tube BID Qty: 9 0RF Continued ondansetron HCl 8 mg tablet 8 mg PO Q8H PRN (Reason: Nausea And Vomiting) prochlorperazine maleate [Compazine] 10 mg tablet 10 mg PO Q6H PRN (Reason: Nausea And Vomiting) Magic Mouthwash 300 mL mouthwash 10 ml mucous membrane ACHS PRN (Reason: mouth pain) Qty: 300 5RF morphine concentrate 100 mg/5 mL (20 mg/mL) solution 5 mg PO Q4H PRN (Reason: Pain) Nutren 1.5 Liquid 1 ea feeding tube UD Rx Instructions: 250 ml 6 times day through feeding tube Discharge Orders: Discharge Order (Routine); Ordered 03/25/23 Ordered By: Magnus Esparza Admission Data Admit Date/Time: 03/19/23 12:33 Attending Provider: Magnus Esparza Admit Provider: Emma Laguerre Primary Care Provider: PCP,NO Other Providers: Emma Laguerre; Alida Aceves; [facility]
== END 2023-03-25 14:16 | disposition home health service (06) | DRG 871 ==
LOC: ED 10:01 → SUATTDRO 12:33 → EDINP 12:33 → 2W 16:45

== ENCOUNTER 2023-04-27 16:53 | Inpatient (IN) ==
--- OUTSIDE RECORDS SUMMARY | 2023-04-27 17:03 | External Medical Summary | Summary of Care ---
Author Name Unknown Organization [facility] Address [address] [place] [address] Phone [phone] Care Team Providers Care Ecology Teacher Name Role Phone Alida Aceves MD Primary Care Provider [phone] Reason for Visit * Reason Onset Date Comments Advice 04/24/2023 Encounter Details Date Type Department Care Team (Late st Contact Info) Description 04/24/2023 Telephone [facility] [address] [place] [address] Alida Aceves MD [address] [place] [address] Advice Allergies No known active allergiesdocumented as of this encounter (statuses as of 04/25/2023) Medications Medication Sig Dispensed Refills Start Date End Date Status Nystatin 997348 UNIT/ML Mouth/Throat Suspension Swish and swallow 5 mL in the morning and 5 mL at noon and 5 mL in the evening and 5 mL before bedtime. For thrush.. 240 mL 1 10/28/2022 Active Additional Information Patient not taking.Reported on 04/22/2023 Mirtazapine 7.5 MG Oral Tablet (Remeron)Indication s:Weight loss Take 1 Tablet by mouth at bedtime. 30 Tablet 3 10/30/2022 Active Additional Information Patient not taking.Reported on 04/22/2023 Ondansetron HCl 8 MG Oral Tablet (Zofran)Indications :Cancer of base of tongue (HCC) Take 1 Tablet by mouth every 8 hours as needed for Nausea. 30 Tablet 3 01/09/2023 Active Additional Information Patient not taking.Reported on 04/22/2023 Prochlorperazine Maleate 10 MG Oral Tablet (Compazine)Indicati ons:Cancer of base of tongue (HCC) Take 1 Tablet by mouth every 6 hours as needed for Nausea. 30 Tablet 3 01/09/2023 Active Additional Information Patient not taking.Reported on 04/22/2023 Nutren 1.5 Oral LiquidIndications:C ancer of base of tongue (HCC) Administer 250 mL six times daily, as directed through feeding tube via bolus syringe. 61695 mL 11 01/10/2023 Active Magnesium 400 MG Oral Capsule Take 1 Capsule by mouth in the morning. 0 Active Cefdinir 300 MG Oral Capsule (Omnicef) Take 1 Capsule by mouth in the morning and 1 Capsule before bedtime. 0 Active Incruse Ellipta 62.5 MCG/ACT Inhalation Aerosol Powder Breath Activated (umeclidinium [place]) Inhale 1 Puff by mouth in the morning. 12 Each 3 03/28/2023 Active Additional Information Patient not taking.Reported on 04/22/2023 Albuterol Sulfate HFA 108 (90 Base) MCG/ACT Inhalation Aerosol Solution Inhale 2 Puffs by mouth every 6 hours as needed (cough, SOB). 18 g 5 03/28/2023 Active Montelukast Sodium 10 MG Oral Tablet (Singulair) Take 1 Tablet by mouth in the morning. 90 Tablet 3 03/28/2023 Active Additional Information Patient not taking.Reported on 04/22/2023 fentaNYL 12 MCG/HR Transdermal Patch 72 Hour (Duragesic)Indicati ons:Cancer of base of tongue (HCC),Immunocomprom ised (HCC) Place 1 Patch over 72 hours topically on the skin every 3 days. 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 30 mL 0 04/08/2023 Active Spiriva Respimat 2.5 MCG/ACT Inhalation Aerosol Solution (Tiotropium [place] Monohydrate) Inhale 2 Puffs by mouth in the morning. 4 g 11 04/22/2023 Active Nebulizer/Tubing/Mo uthpiece Kit Use as directed with Brovana 1 Kit 04/22/2023 Active Flutter Device Use as directed. 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 60 Tablet 5 04/23/2023 Active Additional Information Patient not taking.Reported on 04/25/2023 Brovana 15 MCG/2ML Inhalation Nebulization SolutionIndications :Aspergilloma (HCC),COPD, severe (HCC),H/O tongue cancer Inhale 15 mcg by mouth in the morning and 15 mcg before bedtime. 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 -large primary tumor measuring about 6.2 cm, T4 primary tumor, possible N1, M0. CURRENT TREATMENT: - combined chemotherapy with weekly cisplatin and radiation treatment. (02/13/2023--) ( radiation treatment at [facility]) -treatment completed at this time - Continues to follow with Dr Pablito dupree/onc Fentanyl 12mcg patch with prn morphine for pain control -still having some pain, using morphine approx twice daily, recommended to increase use as needed for pain, up to q4hr. If pain not controlled with increase morphine usage, can consider increase of fentanyl Encounter for antineoplastic chemotherapy 2022 Centrilobular emphysema 11/11/2022 Cavitary lung disease 10/15/2022 Overview: CT 04/16/22 - Significant interval worsening of consolidations, cavities and density in the right upper lobe with interval development of new consolidations and cavities in the posterior right lower lobe and a small lesion in superior segment of the left lower lobe Last Assessment & Plan: Following with pulmonary Needs repeat bronchoscopy and biopsy Pain in limb 04/04/2008 Family history of ischemic heart disease 009 History of tobacco use 03/22/2008 Venous insufficiency 10/14/2002 documented as of this encounter (statuses as of 04/25/2023) Resolved Problems Problem Noted Date Diagnosed Date Resolved Date 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 9 10/15/2022 Routine medical exam 03/22/2008 024 documented as of this encounter (statuses as of 04/25/2023) Immunizations Name Administration Dates Next Due Covid-19 Ad26, Single Dose (Ben/J&J) 01/18/2021,05/19/2020 Pneumococcal Polysaccharide PPV23 (Pneumovax) 05/17/2008(Deferred: Patient Refused) TDAP (age 11 and older)(Adacel) 02/10/2005 documented as of this encounter Social History Tobacco Use Types Packs/Day Years Used Date Smoking Tobacco: Former Cigarettes 1 35 Q uit: 10/11/2022 Passive Smoke Exposure: Current Smokeless Tobacco: Never Comments:10/15/22 0.25 ppd Alcohol Use Standard Drinks/Week Comments Yes 0 (1 standard drink = 0.6 oz pur e alcohol) rare Hunger Vital Sign Answer Date Recorded Within the past 12 months, y ou worried that your food would run out before you got the money to buy more. Patient declined Within the past 12 months, t he food you bought just didn't last and you didn't have money to get more. Patient declined Sex and Gender Information Value Date Recorded Sex Assigned at Male 03/27/2023 12:23 PM EST Gender Identity Male 03/27/2023 12:23 PM EST Sexual Orientation Choose not to disclose 2023 12:23 PM EST Job Start Date Occupation Industry Not on file Not on file Not on file documented as of this encounter Miscellaneous Notes * Telephone Encounter - Eunice Clark LPN - 04/25/2023 2:18 PM EDT Spoke to Cora- Diarrhea started about two days ago-had it all day yesterday but got better last night. No diarrheacurrently. Stated she just would like to know if there is something she can give him to help if it happens again. * Telephone Encounter - Eunice Clark LPN - 04/24/2023 2:15 PM EDT Per message below-patient requests to be contacted on 04/24. * Telephone Encounter - Alida Aceves MD - 04/24/2023 12:44 PM EDT How often does he have diarrhea per day? Watery only or any blood or mucus ? Any fever When did it start ? Does he eat only liquid diet currently ? * Telephone Encounter - Eunice Clark LPN - 04/24/2023 12:42 PM EDT Call Details Diarrhea DIARRHEA: Yes How long have you had diarrhea? 2 days Is your diarrhea under control? No Additional Comment(s) Additional Comments: Requesting call back 04/25/23 patient needs assistance and acute care occupational therapist will be there then Requesting what he can take to ease the diarrhea symptoms acute care occupational therapist is Cora Patient Request Patient Requesting: Medication Prescribed,Advice * Telephone Encounter - Rita Vallecillo OSA - 04/24/2023 11:33 AM EDT See call details documented in this encounter Plan of Treatment Upcoming Encounters Date Type Department Care Team (Late st Contact Info) Description 04/28/2023 9:00 AM EDT Office Visit [facility] [address] [place] [address] Alida Aceves MD [address] [place] [address] 04/29/2023 12:35 PM EDT Hospital Encounter OR [facility], Operating Room, [facility] - 4th Floor [address] [place] [address] Felipe Hernandez MD [address] [facility] [place] [address] 04/29/2023 12:35 PM EDT - 04/29/2023 1:55 PM EDT Surgery OR [facility], Operating Room, [facility] - 4th Floor [address] [place] [address] Felipe Hernandez MD [address] [place] [address] BRONCHOSCOPY, RIGID/FLEXIBLE, INCLUDE FLUORO GUIDANCE, WHEN PERFORMED; W/ EBUS GUIDED TRANSTRACH AND/OR TRANSBRONCH SAMPLING, 1 OR 2 MEDIASTINAL AND/OR HILAR LYMPH NODE STATIONS/STRUCTURES 05/06/2023 11:00 AM EDT Telemedicine [facility], [facility] [address] [facility] [place] [address] Wanda Dee, RDN [address] [facility] [place] [address] Anabel Hubbard, Community Health Prosthetics Lab Technician [address] [place] [address] 05/07/2023 10:00 AM EDT Home Visit [facility], [facility] [address] [place] [address] Carissa Thomas, RN [address] [place] [address] 05/13/2023 11:00 AM EDT Telemedicine [facility], [place] [facility] [address] [place] [address] Andreia Horner PANanC [address] [place] [address] Anabel Hubbard, Community [facility] Prosthetics Lab Technician [address] [place] [address] 05/29/2023 8:15 AM EDT Office Visit Hematology/Oncolog y [facility] [place] [address] [facility] [place] [phone] Tevin Kenney MD [address] [facility] [place] [address] 07/03/2023 9:45 AM EDT Office Visit Otolaryngology/Hea d & Neck/Facial Plastic Surgery [address] [place] [address] Jas Valladares DO [address] [facility] [address] 10/23/2023 9:00 AM EDT Imaging Radiology [address], [address] [place] [address] Scheduled Procedures Name Priority Associated Diagnoses Date/Ti me BRONCHOSCOPY, RIGID/FLEXIBLE, INCLUDE FLUORO GUIDANCE, WHEN PERFORMED; W/ EBUS GUIDED TRANSTRACH AND/OR TRANSBRONCH SAMPLING, 1 OR 2 MEDIASTINAL AND/OR HILAR LYMPH NODE STATIONS/STRUCTURES Mediastinal lymphadenopathy 04/29/2023 12:35 PM EDT Health Maintenance Due Date Last Done Comments Pneumococcal Vaccine: Pediatrics (0 to 5 Years) and At-Risk Patients (6 to 64 Years) (1 of 2 - PCV) 08/06/1966 Depression Screening 1971 Cologuard 08/06/2004 Colonoscopy 08/06/2004 Colorectal Cancer Screening 08/06/2004 Fecal Occult Blood Test 08/06/2004 Sigmoidoscopy 08/06/2004 Zoster Vaccines (1 of 2) 08/06/2009 DTaP,Tdap,and Td Vaccines (2 - Td or Tdap) 02/10/2015 02/10/2005 COVID-19 Vaccine (3 - 2022-2 4 season) 2022 01/18/2021, 05/19/2020 Influenza Vaccine (FLU shot) (#1) 2022 O2 ASSESSMENT COMPLETED IN PAST YEAR FOR COPD 01/11/2024 01/10/2023 Lipid Panel 08/21/2027 08/20/2022 Alpha-1 Antitrypsin Completed 02/12/2023 GARDASIL-HPV IMMUNIZATION SERIES Aged Out No longer eligible b ased on patient's age to complete this topic Hepatitis B Aged Out No longer eligi ble based on patient's age to complete this topic MENINGOCOCCAL (MENACTRA/MENVEO) Aged Out No longer eligible b ased on patient's age to complete this topic documented as of this encounter Medical Devices Not on filedocumented as of this encounter Care Teams Ecology Teacher Relationship Specialty Start Date End Date Alida Aceves MD [address] [place] [address] PCP - General Internal Medicine 08/15/22 documented as of this encounter
--- OUTSIDE RECORDS SUMMARY | 2023-04-27 17:03 | External Medical Summary | Summary of Care ---
Author Name Unknown Organization [facility] Address [address] [place] [address] Phone [phone] Care Team Providers Care Financial Services Specialist Name Role Phone Alida Aceves MD Primary Care Provider [phone] Reason for Visit * Reason Onset Date Comments Advice 04/24/2023 Encounter Details Date Type Department Care Team (Late st Contact Info) Description 04/24/2023 Telephone [facility] [address] [place] [address] Alida Aceves MD [address] [place] [address] Advice Allergies No known active allergiesdocumented as of this encounter (statuses as of 04/24/2023) Medications Medication Sig Dispensed Refills Start Date End Date Status Nystatin 161532 UNIT/ML Mouth/Throat Suspension Swish and swallow 5 [...] directed through feeding tube via bolus syringe. 03682 mL 11 01/10/2023 Active Magnesium 400 MG Oral Capsule Take 1 Capsule by mouth in the morning. 0 Active Cefdinir 300 MG Oral Capsule (Omnicef) Take 1 Capsule by mouth in the morning and 1 Capsule before bedtime. 0 Active Incruse Ellipta 62.5 MCG/ACT Inhalation Aerosol Powder Breath Activated (umeclidinium [place]) Inhale 1 Puff by mouth in the [...] Respimat 2.5 MCG/ACT Inhalation Aerosol Solution (Tiotropium [place] Monohydrate) Inhale 2 Puffs by mouth in [...] before bedtime. 60 Tablet 5 04/23/2023 Active Brovana 15 MCG/2ML Inhalation Nebulization SolutionIndications :Aspergilloma (HCC),COPD, severe (HCC),H/O tongue cancer Inhale 15 mcg by mouth in the morning and 15 mcg before bedtime. 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 9 10/15/2022 Routine medical exam 03/22/2008 024 documented as of this encounter (statuses as of 04/24/2023) Immunizations Name Administration Dates Next Due Covid-19 [...] encounter Miscellaneous Notes * Telephone Encounter - Alida Aceves MD [...] call back 04/25/23 patient needs assistance and rn primary care will be there then Requesting what he can take to ease the diarrhea symptoms rn primary care is Cora Patient Request Patient Requesting: Medication Prescribed,Advice * Telephone Encounter - Rita Vallecillo OSA - 04/24/2023 11:33 AM EDT See call details documented in this encounter Plan of Treatment Upcoming Encounters Date Type Department Care Team (Late st Contact Info) Description 04/28/2023 9:00 AM EDT Office Visit [facility] [address] [place] [facility] [place] [phone] Alida Aceves MD [address] [place] [address] 04/29/2023 12:35 PM EDT Hospital Encounter OR [facility], Operating Room, [facility] - 4th Floor [address] [place] [address] Felipe Hernandez MD [address] [place] [address] 04/29/2023 12:35 PM EDT - 04/29/2023 1:55 PM EDT Surgery OR [facility], Operating Room, [facility] [place] [facility] [address] [place] [address] Felipe Hernandez MD [address] [place] [facility] [place] [address] BRONCHOSCOPY, RIGID/FLEXIBLE, INCLUDE FLUORO GUIDANCE, WHEN PERFORMED; W/ EBUS GUIDED TRANSTRACH AND/OR TRANSBRONCH SAMPLING, 1 OR 2 MEDIASTINAL AND/OR HILAR LYMPH NODE STATIONS/STRUCTURES 05/06/2023 11:00 AM EDT Telemedicine [facility], [facility] [address] [place] [facility] [place] [address] Wanda Dee, BHAVIKN [address] [facility] [place] [address] Anabel Hubbard, Community Health Ash Kier Boiler [address] [place] [address] 05/07/2023 10:00 AM EDT Home Visit [facility], [facility] [address] [facility] [place] [address] Carissa Thomas, RN [address] [facility] [place] [address] 05/13/2023 11:00 AM EDT Telemedicine [facility], [place] [address] [place] [address] Andreia Horner PA-C [address] [place] [address] Anabel Hubbard, Community Health Ash Kier Boiler [address] [place] [address] 05/29/2023 8:15 AM EDT Office [facility] [address] [place] [address] Tevin Kenney MD [address] [place] [address] 07/03/2023 9:45 AM EDT Office Visit Otolaryngology/Hea d & Neck/Facial Plastic Surgery [address] [place] [address] Jas Valladares DO [address] [place] [address] 10/23/2023 9:00 AM EDT Imaging Radiology [address] [place], [place] [id number] Scheduled Procedures Name Priority Associated Diagnoses Date/Ti [...] filedocumented as of this encounter Care Teams Financial Services Specialist Relationship Specialty Start Date End Date Alida Aceves MD [address] [place] [address] PCP - General Internal Medicine 08/15/22 documented as of this encounter
--- OUTSIDE RECORDS SUMMARY | 2023-04-27 17:03 | External Medical Summary | Summary of Care ---
Author Name Unknown Organization [facility] Address [address] [place] [address] Phone [phone] Care Team Providers Care Green End Department Supervisor Name Role Phone Alida Aceves MD Primary Care Provider [phone] Reason for Visit * Reason Onset Date Comments Advice 04/24/2023 Encounter Details Date Type Department Care Team (Late st Contact Info) Description 04/24/2023 Telephone [facility] [address] [place] [address] Alida Aceves MD [address] [place] [address] Advice Allergies No known active allergiesdocumented as of this encounter (statuses as of 04/25/2023) Medications Medication Sig Dispensed Refills Start Date End Date Status Nystatin 151366 UNIT/ML Mouth/Throat Suspension Swish and swallow 5 [...] directed through feeding tube via bolus syringe. 60595 mL 11 01/10/2023 Active Magnesium 400 MG Oral Capsule Take 1 Capsule by mouth in the morning. 0 Active Cefdinir 300 MG Oral Capsule (Omnicef) Take 1 Capsule by mouth in the morning and 1 Capsule before bedtime. 0 Active Incruse Ellipta 62.5 MCG/ACT Inhalation Aerosol Powder Breath Activated (umeclidinium [place]) Inhale 1 Puff by mouth in the [...] Respimat 2.5 MCG/ACT Inhalation Aerosol Solution (Tiotropium [place] Monohydrate) Inhale 2 Puffs by mouth in [...] Additional Information Patient not taking.Reported on 04/25/2023 Loperamide HCl 2 MG Oral Tablet (Imodium A-D) Take 1 Tablet by mouth once for 1 dose. Then one tablet after each loose BM, no more than 4 tablets per day for up to two days 18 Tablet 0 04/25/2023 04/25/2023 Active Hospital, Clinic, or Other Facility Administered [...] hormone 04/16/2023 Last Assessment & Plan: Per [facility] records Protein-calorie malnutrition, severe 03/28/2023 Immunocompromised 03/28/2023 [...] radiation treatment. (02/13/2023--) ( radiation treatment at [facility]) -treatment completed at this time - Continues [...] as of this encounter Miscellaneous Notes * Addendum Note - Alida Aceves MD - 04/25/2023 2:38 PM EDTAddended by: ALIDA ACEVES on: 04/25/2023 02:38 PM Modules accepted: Orders * Telephone Encounter - Alida Aceves MD - 04/25/2023 2:37 PM EDT Usually self limiting But will order imodium to take as needed And if happens again, might need to do stool test then * Telephone Encounter - Eunice Clark LPN [...] call back 04/25/23 patient needs assistance and day care home mother will be there then Requesting what he can take to ease the diarrhea symptoms day care home mother is Cora Patient Request Patient Requesting: Medication Prescribed,Advice * Telephone Encounter - Rita Vallecillo OSA - 04/24/2023 11:33 AM EDT See call details documented in this encounter Plan of Treatment Upcoming Encounters Date Type Department Care Team (Late st Contact Info) Description 04/28/2023 9:00 AM EDT Office Visit [facility] [address] [place] [facility] [place] [phone] Alida Aceves MD [address] [place] [address] 04/29/2023 12:35 PM EDT Hospital Encounter OR [facility], Operating Room, [facility] - 4th Floor [address] [place] [address] Felipe Hernandez MD [address] [place] [facility] [address] 04/29/2023 12:35 PM EDT - 04/29/2023 1:55 PM EDT Surgery OR [facility], Operating Room, [facility] - 4th Floor [address] [place] [address] Felipe Hernandez MD [address] [place] [address] BRONCHOSCOPY, RIGID/FLEXIBLE, INCLUDE FLUORO GUIDANCE, WHEN PERFORMED; W/ EBUS GUIDED TRANSTRACH AND/OR TRANSBRONCH SAMPLING, 1 OR 2 MEDIASTINAL AND/OR HILAR LYMPH NODE STATIONS/STRUCTURES 05/06/2023 11:00 AM EDT Telemedicine [facility], [facility] [address] [facility] [place] [address] Wanda Dee RDN [address] [facility] [place] [address] Anabel Hubbard, Community Health Communications Advisor [address] [place] [address] 05/07/2023 10:00 AM EDT Home Visit [facility], [facility] [address] [facility] [place] [address] Carissa Thomas, RN [address] [facility] [place] [address] 05/13/2023 11:00 AM EDT Telemedicine [facility], [place] [facility] [address] [place] [address] [place] [address] Andreia Horner PA-C [address] [place] [address] Anabel Hubbard, Community Health Communications Advisor [address] [place] [address] 05/29/2023 8:15 AM EDT Office [facility] [address] [place] [phone] Tevin Kenney MD [address] [place] [address] 07/03/2023 9:45 AM EDT Office Visit Otolaryngology/Hea d & Neck/Facial Plastic Surgery [address] [place] [address] Jas Valladares DO [address] [place] [address] 10/23/2023 9:00 AM EDT Imaging Radiology [address] [place] [address] Scheduled Procedures Name Priority Associated Diagnoses Date/Ti [...] filedocumented as of this encounter Care Teams Green End Department Supervisor Relationship Specialty Start Date End Date Alida Aceves MD [address] [place] [address] PCP - General Internal Medicine 08/15/22 documented as of this encounter
--- OUTSIDE RECORDS SUMMARY | 2023-04-27 17:03 | External Medical Summary | Summary of Care ---
Author Name Unknown Organization [facility] Address [address] [place] [address] Phone [phone] Care Team Providers Care Geothermal Plant Manager Name Role Phone Alida Aceves MD Primary Care Provider [phone] Reason for Visit * Reason Onset Date Comments Test Results 04/18/2023 CT chest Encounter Details Date Type Department Care Team (Late st Contact Info) Description 04/18/2023 Telephone Pulmonary Medicine Brea Null [address] [phone] Felipe Hernandez MD [address] [address] Test Results (CT chest) Allergies No known active allergiesdocumented as of this encounter (statuses as of 04/23/2023) Medications Medication Sig Dispensed Refills Start Date End Date Status Nystatin 120484 UNIT/ML Mouth/Throat Suspension Swish and swallow 5 mL in the morning and 5 mL at noon and 5 mL in the evening and 5 mL before bedtime. For thrush.. 240 mL 1 10/28/2022 Active Additional Information Patient not taking.Reported on 04/22/2023 Mirtazapine 7.5 MG Oral Tablet (Remeron)Indicati ons:Weight loss Take 1 Tablet by mouth at bedtime. 30 Tablet 3 10/30/2022 Active Additional Information Patient not taking.Reported on 04/22/2023 Ondansetron HCl 8 MG Oral Tablet (Zofran)Indicatio ns:Cancer of base of tongue (HCC) Take 1 Tablet by mouth every 8 hours as needed for Nausea. 30 Tablet 3 01/09/2023 Active Additional Information Patient not taking.Reported on 04/22/2023 Prochlorperazine Maleate 10 MG Oral Tablet (Compazine)Indica tions:Cancer of base of tongue (HCC) Take 1 Tablet by mouth every 6 hours as needed for Nausea. 30 Tablet 3 01/09/2023 Active Additional Information Patient not taking.Reported on 04/22/2023 Nutren 1.5 Oral LiquidIndications :Cancer of base of tongue (HCC) Administer 250 mL six times daily, as directed through feeding tube via bolus syringe. 26182 mL 11 01/10/2023 Active Magnesium 400 MG Oral Capsule Take 1 Capsule by mouth in the morning. 0 Active Cefdinir 300 MG Oral Capsule (Omnicef) Take 1 Capsule by mouth in the morning and 1 Capsule before bedtime. 0 Active Incruse Ellipta 62.5 MCG/ACT Inhalation Aerosol Powder Breath Activated (umeclidinium [place]) Inhale 1 Puff by mouth in the [...] fentaNYL 12 MCG/HR Transdermal Patch 72 Hour (Duragesic)Indica tions:Cancer of base of tongue (HCC),Immunocompr omised (HCC) Place 1 Patch over 72 hours topically on the skin every 3 days. 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 60 Tablet 5 04/23/2023 Active Voriconazole 200 MG Oral Tablet (Vfend) Take 1 Tablet by mouth in the morning and 1 Tablet before bedtime. 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 9 10/15/2022 Routine medical exam 03/22/2008 024 documented as of this encounter (statuses as of 04/23/2023) Immunizations Name Administration Dates Next Due Covid-19 [...] encounter Miscellaneous Notes * Addendum Note - Felipe Hernandez MD - 04/23/2023 12:53 PM EDTAddended by: FELIPE HERNANDEZ on: 04/23/2023 12:53 PM Modules accepted: Orders * Telephone Encounter - Felipe Hernandez MD - 04/23/2023 12:53 PM EDT Signed Thank you * Addendum Note - West Barker LPN - 04/23/2023 11:21 AM EDTAddended by: WEST BARKER on: 04/23/2023 11:21 AM Modules accepted: Orders * Telephone Encounter - West Barker LPN - 04/23/2023 11:18 AM EDT Malissa from [facility] health called and the pt is not taking the voriconazole. She was informed thatDr David wants him to be taking it and will send a prescription to the [facility] in [place]. She will let the pt know. Please sign, thanks. * Telephone Encounter - Leatha Woodson LPN - 04/22/2023 5:29 PM EDT Message left for the patients sister to call the office back in regards to the medication. * Telephone Encounter - Felipe Hernandez MD - 04/22/2023 4:36 PM EDT Please call the patient/sister to see if patient is taking Voriconazole. Very important as we think the infection is getting worse and will affect him more Thank you * Telephone Encounter - Leatha Woodson LPN - 04/22/2023 10:16 AM EDT Pt in the clinic today for an appointment, so the result will be reviewed at that time. * Telephone Encounter - Leatha Woodson LPN - 04/21/2023 6:01 PM EDT Message left for the patient to call the office. * Telephone Encounter - Felipe Hernandez MD - 04/18/2023 10:32 AM EST Please let us call the patient and discuss the CT chest result Right upper lobe lesion is worse with increased mediastinal lymph node May need re evaluation and biopsy (Bronch as soon as possible). Thank you documented in this encounter Plan of Treatment Upcoming Encounters Date Type Department Care Team (Late st Contact Info) Description 04/28/2023 9:00 AM EDT Office [facility] [address] [facility] [phone] Alida Aceves MD [address] [facility] [place], [place] [id number] 04/29/2023 12:35 PM EDT Hospital Encounter OR GL, Operating Room, [facility] - 4th Floor [address] [place] [address] [address] [address] Felipe Hernandez MD [address] [facility] [address] 04/29/2023 12:35 PM EDT - 04/29/2023 1:55 PM EDT Surgery OR GL, Operating Room, [facility] - 4th Floor [address] [facility] [place] [address] Felipe Hernandez MD [address] [address] BRONCHOSCOPY, RIGID/FLEXIBLE, INCLUDE FLUORO GUIDANCE, WHEN PERFORMED; W/ EBUS GUIDED TRANSTRACH AND/OR TRANSBRONCH SAMPLING, 1 OR 2 MEDIASTINAL AND/OR HILAR LYMPH NODE STATIONS/STRUCTURES 05/06/2023 11:00 AM EDT [facility]icine [facility], [facility] [address] [place] [facility] [place] [address] Wanda Dee, BHAVIKN [address] [place] [place] [address] Anabel Hubbard, [facility] Health Ophthalmology Assistant [address] [place] [address] 05/07/2023 10:00 AM EDT Home Visit [facility], [facility] 132 [facility] [place] [address] Carissa Thomas RN 132 [place] [address] 05/13/2023 11:00 AM EDT [facility]medicine [facility], [facility] [address] [place] [address] Andreia Horner PA-C [address] [place] [address] Anabel Hubbard, Community [facility] Ophthalmology Assistant [address] [place] [address] 05/29/2023 8:15 AM EDT Office Visit Hematology/Oncolog y [facility] [address] [place] [phone] Tevin Kenney MD [address] [place] [address] 07/03/2023 9:45 AM EDT Office Visit Otolaryngology/Hea d & Neck/Facial Plastic Surgery [address] [place] [address] Jas Valladares DO [address] [place] [address] 10/23/2023 9:00 AM EDT Imaging Radiology [address] [place] [address] Scheduled Procedures Name Priority Associated Diagnoses Date/Ti [...] 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
--- OUTSIDE RECORDS SUMMARY | 2023-04-27 17:03 | External Medical Summary | Summary of Care ---
Author Name Unknown Organization [facility] Address [address] [place] [address] Phone [phone] Care Team Providers Care Counseling Department Chair Name Role Phone Alida Aceves MD Primary Care Provider [phone] Reason for Visit * Reason Onset Date Comments Test Results 04/18/2023 F/U 04/28 broncho scopy Encounter Details Date Type Department Care Team (Late st Contact Info) Description 04/18/2023 Telephone Pulmonary Medicine Brea Null [address] [address] Felipe Hernandez MD [address] [id number] Test Results (F/U 04/28 bronchoscopy) Allergies No known active allergiesdocumented as of this encounter (statuses as of 04/23/2023) Medications Medication Sig Dispensed Refills Start Date End Date Status Nystatin 839555 UNIT/ML Mouth/Throat Suspension Swish and swallow 5 [...] directed through feeding tube via bolus syringe. 12812 mL 11 01/10/2023 Active Magnesium 400 MG Oral Capsule Take 1 Capsule by mouth in the morning. 0 Active Cefdinir 300 MG Oral Capsule (Omnicef) Take 1 Capsule by mouth in the morning and 1 Capsule before bedtime. 0 Active Incruse Ellipta 62.5 MCG/ACT Inhalation Aerosol Powder Breath Activated (umeclidinium [place]) Inhale 1 Puff by mouth in the [...] 04/16/2023 Last Assessment & Plan: Per [facility] records Protein-calorie malnutrition, severe 03/28/2023 Immunocompromised [...] radiation treatment. (02/13/2023--) ( radiation treatment at [facility]) -treatment completed at this time - [...] - 04/23/2023 11:18 AM EDT Malissa from [facility] health called and the pt is not taking the voriconazole. She was informed thatDr David wants him to be taking it and will send a prescription to the [facility] in [place]. She will let the pt know. Please [...] Description 04/28/2023 9:00 AM EDT Office Visit [facility] [address] [facility] [address] Alida Aceves MD [address] [place], [place] [phone] 04/29/2023 12:35 PM EDT Hospital Encounter OR [facility], Operating Room, [facility] - 4th Floor [address] [place] [address] [place] [address] Felipe Hernandez MD [address] [place] [facility] [place] [address] 04/29/2023 12:35 PM EDT - 04/29/2023 1:55 PM EDT Surgery OR [facility], Operating Room, [facility] - 4th Floor 400 [facility] [place] [address] Felipe Hernandez MD [address] [place] [facility] [place] [address] BRONCHOSCOPY, RIGID/FLEXIBLE, INCLUDE FLUORO GUIDANCE, WHEN PERFORMED; W/ EBUS GUIDED TRANSTRACH AND/OR TRANSBRONCH SAMPLING, 1 OR 2 MEDIASTINAL AND/OR HILAR LYMPH NODE STATIONS/STRUCTURES 05/06/2023 11:00 AM EDT Telemedicine [facility], [facility] [address] [place] [address] Wanda Dee, RDN [address] [place] [facility] [place] [address] Anabel Hubbard, [facility] Health Credit Associate [address] [place] [address] 05/07/2023 10:00 AM EDT Home [facility], [facility] [address] [place] [address] Carissa Thomas, RN [address] [place] [address] 05/13/2023 11:00 AM EDT Telemedicine [facility], [place] [facility] [address] [place] [address] Andreia Horner PA-C [address] [place] [address] Anabel Hubbard, Community Health Credit Associate [address] [place] [address] 05/29/2023 8:15 AM EDT Office Visit Hematology/Oncolog y [facility] [address] [place] [phone] Tevin Kenney MD [address] [place] [address] 07/03/2023 9:45 AM EDT Office Visit Otolaryngology/Hea d & Neck/Facial Plastic Surgery [address] [place] [address] Jas Valladares DO [address] [place] [address] 10/23/2023 9:00 AM EDT Imaging Radiology [address] [place] [address] Scheduled Procedures Name Priority Associated Diagnoses Date/Ti [...] nodes documented in this encounter Care Teams Counseling Department Chair Relationship Specialty Start Date End Date Alida Aceves MD [address] [place] [address] PCP - General Internal Medicine 08/15/22 documented as of this encounter
--- OUTSIDE RECORDS SUMMARY | 2023-04-27 17:03 | External Medical Summary | Summary of Care ---
Author Name Unknown Organization [facility] Address [address] [place] [address] Phone [phone] Care Team Providers Care Spa Concierge Name Role Phone Alida Aceves MD Primary Care Provider [phone] Reason for Visit * Reason Onset Date Comments Advice 04/24/2023 Encounter Details Date Type Department Care Team (Late st Contact Info) Description 04/24/2023 Telephone [facility] [address] [place] [address] Alida Aceves MD [address] [place] [address] Advice Allergies No known active allergiesdocumented as of this encounter (statuses as of 04/25/2023) Medications Medication Sig Dispensed Refills Start Date End Date Status Nystatin 723834 UNIT/ML Mouth/Throat Suspension Swish and swallow 5 [...] directed through feeding tube via bolus syringe. 83172 mL 11 01/10/2023 Active Magnesium 400 MG Oral Capsule Take 1 Capsule by mouth in the morning. 0 Active Cefdinir 300 MG Oral Capsule (Omnicef) Take 1 Capsule by mouth in the morning and 1 Capsule before bedtime. 0 Active Incruse Ellipta 62.5 MCG/ACT Inhalation Aerosol Powder Breath Activated (umeclidinium [place]) Inhale 1 Puff by mouth in the [...] Respimat 2.5 MCG/ACT Inhalation Aerosol Solution (Tiotropium [place] Monohydrate) Inhale 2 Puffs by mouth in [...] ( radiation treatment at [facility]) -treatment completed at this time - Continues [...] Encounter - Eunice Clark LPN - 04/25/2023 3:19 PM EDT Patient's EC, Cora, aware. * Addendum Note - Alida Aceves MD [...] call back 04/25/23 patient needs assistance and reservoir caretaker will be there then Requesting what he can take to ease the diarrhea symptoms reservoir caretaker is Cora Patient Request Patient Requesting: Medication Prescribed,Advice * Telephone Encounter - Rita Vallecillo OSA - 04/24/2023 11:33 AM EDT See call details documented in this encounter Plan of Treatment Upcoming Encounters Date Type Department Care Team (Late st Contact Info) Description 04/28/2023 9:00 AM EDT Office Visit [facility] [address] [place] [phone] Alida Aceves MD [address] [place] [address] 04/29/2023 12:35 PM EDT Hospital Encounter OR GL, Operating Room, [facility] - 4th Floor [address] [place] [address] Felipe Hernandez MD [address] [place] [address] 04/29/2023 12:35 PM EDT - 04/29/2023 1:55 PM EDT Surgery OR [facility], Operating Room, [facility] Floor [address] [place] [address] Felipe Hernandez MD [address] [place] [address] BRONCHOSCOPY, RIGID/FLEXIBLE, INCLUDE FLUORO GUIDANCE, WHEN PERFORMED; W/ EBUS GUIDED TRANSTRACH AND/OR TRANSBRONCH SAMPLING, 1 OR 2 MEDIASTINAL AND/OR HILAR LYMPH NODE STATIONS/STRUCTURES 05/06/2023 11:00 AM EDT Telemedicine [facility], [facility] [address] [facility] [place] [address] Wanda Dee, BHAVIKN [address] [facility] [address] Anabel Hubbard, Community [facility] Window Shade Estimator [address] [place] [address] 05/07/2023 10:00 AM EDT Home Visit [facility], [facility] [address] [address] Carissa Thomas RN 132 [facility] [place] [address] 05/13/2023 11:00 AM EDT Telemedicine [facility], [place] [facility] [address] [place] [address] Andreia Horner PA-C [address] [place] [address] Anabel Hubbard, Community Health Window Shade Estimator [address] [place] [address] 05/29/2023 8:15 AM EDT Office Visit [facility]olog [facility] [address] [place] [phone] Tevin Kenney MD [address] [place] [address] 07/03/2023 9:45 AM EDT Office Visit Otolaryngology/Hea d & Neck/Facial Plastic Surgery [address] [place] [address] Jas Valladares DO [address] [place] [address] 10/23/2023 9:00 AM EDT Imaging Radiology [address] [facility] [address] Scheduled Procedures Name Priority Associated Diagnoses Date/Ti [...] filedocumented as of this encounter Care Teams Spa Concierge Relationship Specialty Start Date End Date Alida Aceves MD [address] [place] [address] PCP - General Internal Medicine 08/15/22 documented as of this encounter
--- OUTSIDE RECORDS SUMMARY | 2023-04-27 17:03 | External Medical Summary | Summary of Care ---
Author Name Unknown Organization [facility] Address [address] [place] [address] Phone [phone] Care Team Providers Care Automotive Sales Specialist Name Role Phone Alida Aceves MD Primary Care Provider [phone] Reason for Visit * Reason Onset Date Comments Advice 04/24/2023 Encounter Details Date Type Department Care Team (Late st Contact Info) Description 04/24/2023 Telephone [facility] [address] [place] [address] Alida Aceves MD [address] [place] [address] Advice Allergies No known active allergiesdocumented as of this encounter (statuses as of 04/24/2023) Medications Medication Sig Dispensed Refills Start Date End Date Status Nystatin 484628 UNIT/ML Mouth/Throat Suspension Swish and swallow 5 [...] directed through feeding tube via bolus syringe. 99806 mL 11 01/10/2023 Active Magnesium 400 MG Oral Capsule Take 1 Capsule by mouth in the morning. 0 Active Cefdinir 300 MG Oral Capsule (Omnicef) Take 1 Capsule by mouth in the morning and 1 Capsule before bedtime. 0 Active Incruse Ellipta 62.5 MCG/ACT Inhalation Aerosol Powder Breath Activated (umeclidinium [place]) Inhale 1 Puff by mouth in the [...] Respimat 2.5 MCG/ACT Inhalation Aerosol Solution (Tiotropium [place] Monohydrate) Inhale 2 Puffs by mouth in [...] hormone 04/16/2023 Last Assessment & Plan: Per [facility] records Protein-calorie malnutrition, severe 03/28/2023 Immunocompromised 03/28/2023 [...] radiation treatment. (02/13/2023--) ( radiation treatment at [facility]) -treatment completed at this time - Continues [...] call back 04/25/23 patient needs assistance and resident care provider will be there then Requesting what he can take to ease the diarrhea symptoms resident care provider is Cora Patient Request Patient Requesting: Medication Prescribed,Advice * Telephone Encounter - Rita Vallecillo OSA - 04/24/2023 11:33 AM EDT See call details documented in this encounter Plan of Treatment Upcoming Encounters Date Type Department Care Team (Late st Contact Info) Description 04/28/2023 9:00 AM EDT Office Visit [facility] [address] [place] [phone] Alida Aceves MD [address] [place] [address] 04/29/2023 12:35 PM EDT Hospital Encounter OR [facility], Operating Room, [facility] - 4th Floor [address] [place] [address] Felipe Hernandez MD [address] [place] [address] 04/29/2023 12:35 PM EDT - 04/29/2023 1:55 PM EDT Surgery OR [facility], Operating Room, [facility] Floor [address] [place] [address] Felipe Hernandez MD [address] [place] [address] BRONCHOSCOPY, RIGID/FLEXIBLE, INCLUDE FLUORO GUIDANCE, WHEN PERFORMED; W/ EBUS GUIDED TRANSTRACH AND/OR TRANSBRONCH SAMPLING, 1 OR 2 MEDIASTINAL AND/OR HILAR LYMPH NODE STATIONS/STRUCTURES 05/06/2023 11:00 AM EDT [facility]icine [facility], [facility] [address] [facility] [place] [address] Wanda Dee RDN [address] [facility] [place] [address] Anabel Hubbard, Community Health Coke Worker [address] [place] [address] 05/07/2023 10:00 AM EDT [facility], [facility] 132 [place] [address] Carissa Thomas, RN 132 [facility] [place] [address] 05/13/2023 11:00 AM EDT Telemedicine [facility], [facility] [address] [place] [address] Andreia Horner PA-C [address] [place] [address] Anabel Hubbard, Community Health Coke Worker [address] [place] [address] 05/29/2023 8:15 AM EDT Office Visit Hematology/Oncolog y [facility] [address] [place] [address] Tevin Kenney MD [address] [place] [address] 07/03/2023 9:45 AM EDT Office Visit Otolaryngology/Hea d & Neck/Facial Plastic Surgery [address] [place] [address] Jas Valladares DO [address] [place] [address] 10/23/2023 9:00 AM EDT Imaging Radiology [facility] 1st [facility] [address] [place] [address] Scheduled Procedures Name Priority Associated Diagnoses Date/Ti [...] filedocumented as of this encounter Care Teams Automotive Sales Specialist Relationship Specialty Start Date End Date Alida Aceves MD [address] [place] [address] PCP - General Internal Medicine 08/15/22 documented as of this encounter
--- OUTSIDE RECORDS SUMMARY | 2023-04-27 17:03 | External Medical Summary | Summary of Care ---
Author Name Unknown Organization [facility] Address [address] [place] [address] Phone [phone] Care Team Providers Care Electron Gun Assembler Name Role Phone Alida Aceves MD Primary Care Provider [phone] Reason for Visit * Reason Onset Date Comments Medication Problem 04/23/2023 Generic brova na is non formulary Encounter Details Date Type Department Care Team (Late st Contact Info) Description 04/23/2023 Telephone Pulmonary Medicine Brea Null [address] [place] [address] Felipe Hernandez MD [address] [place] [facility] [place] [address] Medication Problem (Generic brovana is non... Allergies No known active allergiesdocumented as of this encounter (statuses as of 04/24/2023) Medications Medication Sig Dispensed Refills Start Date End Date Status Nystatin 261690 UNIT/ML Mouth/Throat Suspension Swish and swallow 5 mL in the morning and 5 mL at noon and 5 mL in the evening and 5 mL before bedtime. For thrush.. 240 mL 1 10/28/2022 Active Additional Information Patient not taking.Reported on 04/22/2023 Mirtazapine 7.5 MG Oral Tablet (Remeron)Indicatio ns:Weight loss Take 1 Tablet by mouth at bedtime. 30 Tablet 3 10/30/2022 Active Additional Information Patient not taking.Reported on 04/22/2023 Ondansetron HCl 8 MG Oral Tablet (Zofran)Indication s:Cancer of base of tongue (HCC) Take 1 Tablet by mouth every 8 hours as needed for Nausea. 30 Tablet 3 01/09/2023 Active Additional Information Patient not taking.Reported on 04/22/2023 Prochlorperazine Maleate 10 MG Oral Tablet (Compazine)Indicat ions:Cancer of base of tongue (HCC) Take 1 Tablet by mouth every 6 hours as needed for Nausea. 30 Tablet 3 01/09/2023 Active Additional Information Patient not taking.Reported on 04/22/2023 Nutren 1.5 Oral LiquidIndications: Cancer of base of tongue (HCC) Administer 250 mL six times daily, as directed through feeding tube via bolus syringe. 73611 mL 11 01/10/2023 Active Magnesium 400 MG Oral Capsule Take 1 Capsule by mouth in the morning. 0 Active Cefdinir 300 MG Oral Capsule (Omnicef) Take 1 Capsule by mouth in the morning and 1 Capsule before bedtime. 0 Active Incruse Ellipta 62.5 MCG/ACT Inhalation Aerosol Powder Breath Activated (umeclidinium [place]) Inhale 1 Puff by mouth in the [...] fentaNYL 12 MCG/HR Transdermal Patch 72 Hour (Duragesic)Indicat ions:Cancer of base of tongue (HCC),Immunocompro mised (HCC) Place 1 Patch over 72 hours topically on the skin every 3 days. 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 30 mL 0 04/08/2023 Active Spiriva Respimat 2.5 MCG/ACT Inhalation Aerosol Solution (Tiotropium [place] Monohydrate) Inhale 2 Puffs by mouth in the morning. 4 g 11 04/22/2023 Active Nebulizer/Tubing/M outhpiece Kit Use as directed with Brovana 1 Kit 04/22/2023 Active Flutter Device Use as directed. 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 60 Tablet 5 04/23/2023 Active Brovana 15 MCG/2ML Inhalation Nebulization SolutionIndication s:Aspergilloma (HCC),COPD, severe (HCC),H/O tongue cancer Inhale 15 mcg by mouth in the morning and 15 mcg before bedtime. 120 mL 11 04/23/2023 Active Arformoterol Tartrate 15 MCG/2ML Inhalation Nebulization Solution (Brovana) Inhale 15 mcg by mouth in the morning and 15 mcg before bedtime. 120 mL 11 04/22/2023 Discontinue d(Refill) Hospital, Clinic, or Other Facility [...] hormone 04/16/2023 Last Assessment & Plan: Per [facility] records Protein-calorie malnutrition, severe 03/28/2023 Immunocompromised 03/28/2023 [...] radiation treatment. (02/13/2023--) ( radiation treatment at [facility]) -treatment completed at this time - Continues [...] encounter Miscellaneous Notes * Telephone Encounter - Felipe Hernandez MD - 04/23/2023 5:02 PM EDT Signed Thank you * Telephone Encounter - Amy Tang LPN - 04/23/2023 4:17 PM EDT Please sign, thanks. documented in this encounter Plan of Treatment Upcoming Encounters Date Type Department Care Team (Late st Contact Info) Description 04/28/2023 9:00 AM EDT [facility] [address] [facility] [address] Alida Aceves MD [address] [facility] [place] [address] 04/29/2023 12:35 PM EDT Hospital Encounter OR [facility], Operating Room, [facility] - 4th Floor [address] [address] Felipe Hernandez MD [address] [facility] [place] [address] 04/29/2023 12:35 PM EDT - 04/29/2023 1:55 PM EDT Surgery OR [facility], Operating Room, [facility] - 4th Floor [address] [facility] [place] [address] Felipe Hernandez MD [address] [facility] [place] [address] BRONCHOSCOPY, RIGID/FLEXIBLE, INCLUDE FLUORO GUIDANCE, WHEN PERFORMED; W/ EBUS GUIDED TRANSTRACH AND/OR TRANSBRONCH SAMPLING, 1 OR 2 MEDIASTINAL AND/OR HILAR LYMPH NODE STATIONS/STRUCTURES 05/06/2023 11:00 AM EDT [facility], [facility] [address] [facility] [place] [address] Wanda Dee, RDN [address] [facility] [place] [address] Anabel Hubbard, Community Health Agricultural Mechanic [address] [place] [address] 05/07/2023 10:00 AM EDT [facility], [facility] [address] [place] [address] Carissa Thomas, RN [address] [place] [address] 05/13/2023 11:00 AM EDT [facility], [place] [address] [place] [address] Andreia Horner PA-C [address] [place] [address] Anabel Hubbard, Community Health Agricultural Mechanic [address] [place] [address] 05/29/2023 8:15 AM EDT Office Visit Hematology/Oncolog y [facility] [address] [place] [address] Tevin Kenney MD [address] [place] [address] 07/03/2023 9:45 AM EDT Office Visit Otolaryngology/Hea d & Neck/Facial Plastic Surgery [address] [place] [address] Jas Valladares DO [address] [place] [address] 10/23/2023 9:00 AM EDT Imaging Radiology [address] [place] [address] Scheduled Procedures Name Priority Associated Diagnoses Date/Ti [...] as of this encounter Visit Diagnoses Diagnosis Aspergilloma (HCC)- Primary Aspergillosis COPD, severe (HCC) Chronic airway obstruction, not elsewhere classified H/O tongue cancer Personal history of malignant neoplasm of tongue Mediastinal lymphadenopathy Enlargement of lymph nodes documented in this encounter Care Teams Electron Gun Assembler Relationship Specialty Start Date End Date Alida Aceves MD [address] [place] [address] PCP - General Internal Medicine 08/15/22 documented as of this encounter
--- OUTSIDE RECORDS SUMMARY | 2023-04-27 17:04 | External Medical Summary | Summary of Care ---
Author Name Unknown Organization [facility] Address [address] [place] [address] Phone [phone] Care Team Providers Care Machine Sole Leveler Name Role Phone Alida Aceves MD Primary Care Provider [phone] Reason for Visit * Reason Onset Date Comments Test Results 04/18/2023 CT chest Encounter Details Date Type Department Care Team (Late st Contact Info) Description 04/18/2023 Telephone Pulmonary Medicine Brea Null [address] [place] [phone] Felipe Hernandez MD [address] [place] [place] [address] Test Results (CT chest) Allergies No known active allergiesdocumented as of this encounter (statuses as of 04/22/2023) Medications Medication Sig Dispensed Refills Start Date End Date Status Nystatin 941128 UNIT/ML Mouth/Throat Suspension Swish and swallow 5 [...] Additional Information Patient not taking.Reported on 04/22/2023 Voriconazole 200 MG Oral Tablet (Vfend) Take 1 Tablet by mouth in the morning and 1 Tablet before bedtime. 60 Tablet 5 01/09/2023 Active Additional Information Patient not taking.Reported on 04/07/2023 Nutren 1.5 Oral LiquidIndications:C ancer of base of tongue (HCC) Administer 250 mL six times daily, as directed through feeding tube via bolus syringe. 03860 mL 11 01/10/2023 Active Magnesium 400 MG Oral Capsule Take 1 Capsule by mouth in the morning. 0 Active Cefdinir 300 MG Oral Capsule (Omnicef) Take 1 Capsule by mouth in the morning and 1 Capsule before bedtime. 0 Active Incruse Ellipta 62.5 MCG/ACT Inhalation Aerosol Powder Breath Activated (umeclidinium [place]) Inhale 1 Puff by mouth in the [...] Pain, Moderate. 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 9 10/15/2022 Routine medical exam 03/22/2008 024 documented as of this encounter (statuses as of 04/22/2023) Immunizations Name Administration Dates Next Due Covid-19 [...] Description 04/28/2023 9:00 AM EDT Office Visit [place] [address] [place] [address] Alida Aceves MD [address] [place] [address] 04/29/2023 12:35 PM EDT Hospital Encounter OR [facility], Operating Room, [facility] - 4th Floor [address] [place] [address] Felipe Hernandez MD [address] [place] [address] 04/29/2023 12:35 PM EDT - 04/29/2023 1:55 PM EDT Surgery OR [facility], Operating Room, [facility] - 4th Floor [address] [place] [address] Felipe Hernandez MD [address] [place] [facility] [place] [address] BRONCHOSCOPY, RIGID/FLEXIBLE, INCLUDE FLUORO GUIDANCE, WHEN PERFORMED; W/ EBUS GUIDED TRANSTRACH AND/OR TRANSBRONCH SAMPLING, 1 OR 2 MEDIASTINAL AND/OR HILAR LYMPH NODE STATIONS/STRUCTURES 05/06/2023 11:00 AM EDT [facility]icine [facility], [facility] [address] [place] [address] Wanda Dee, RDN [address] [place] [address] Anabel Hubbard, Community Health Dental Professional [address] [place] [address] 05/07/2023 10:00 AM EDT [facility], [facility] [address] [facility] [address] Carissa Thomas, RN 132 [place] [address] 05/13/2023 11:00 AM EDT [facility]icine [facility], [place] [address] [place] [address] Andreia Horner PA-C [address] [place] [address] Anabel Hubbard, Community Health Dental Professional [address] [place] [address] 05/29/2023 8:15 AM EDT Office Visit Hematology/Oncolog y [facility] [address] [place] [address] Tevin Kenney MD [address] [place] [address] 07/03/2023 9:45 AM EDT Office Visit Otolaryngology/Hea d & Neck/Facial Plastic Surgery [address] [place] [address] Jas Valladares, [address] [place] [address] 10/23/2023 9:00 AM EDT Imaging Radiology [address], [place] [address] [place] [address] Scheduled Procedures Name Priority Associated [...] filedocumented as of this encounter Care Teams Machine Sole Leveler Relationship Specialty Start Date End Date Alida Aceves MD [address] [place] [address] PCP - General Internal Medicine 08/15/22 documented as of this encounter
--- OUTSIDE RECORDS SUMMARY | 2023-04-27 17:04 | External Medical Summary | Summary of Care ---
Author Name Unknown Organization [facility] Address [address] [place] [address] Phone [phone] Care Team Providers Care Nursery Technician Name Role Phone Alida Aceves MD Primary Care Provider [phone] Reason for Visit * Reason Onset Date Comments Test Results 04/18/2023 CT chest Encounter Details Date Type Department Care Team (Late st Contact Info) Description 04/18/2023 Telephone Pulmonary Medicine Brea Null [address] [place] [phone] Felipe Hernandez MD [address] [place] [address] Test Results (CT chest) Allergies No known active allergiesdocumented as of this encounter (statuses as of 04/23/2023) Medications Medication Sig Dispensed Refills Start Date End Date Status Nystatin 418924 UNIT/ML Mouth/Throat Suspension Swish and swallow 5 [...] directed through feeding tube via bolus syringe. 79897 mL 11 01/10/2023 Active Magnesium 400 MG Oral Capsule Take 1 Capsule by mouth in the morning. 0 Active Cefdinir 300 MG Oral Capsule (Omnicef) Take 1 Capsule by mouth in the morning and 1 Capsule before bedtime. 0 Active Incruse Ellipta 62.5 MCG/ACT Inhalation Aerosol Powder Breath Activated (umeclidinium [place]) Inhale 1 Puff by mouth in the [...] hormone 04/16/2023 Last Assessment & Plan: Per [facility] records Protein-calorie malnutrition, severe 03/28/2023 Immunocompromised [...] radiation treatment. (02/13/2023--) ( radiation treatment at [facility]) -treatment completed at this time - [...] encounter Miscellaneous Notes * Addendum Note - West Barker LPN - 04/23/2023 11:21 AM EDTAddended by: WEST BARKER on: 04/23/2023 11:21 AM Modules accepted: Orders * Telephone Encounter - West Barker LPN - 04/23/2023 11:18 AM EDT Malissa from [facility] called and the pt is not taking the voriconazole. She was informed thatDr Mathieueh wants him to be taking it and will send a prescription to the [facility] in [place]. She will let the pt know. Please [...] Description 04/28/2023 9:00 AM EDT Office Visit [place] [address] [place] [address] Alida Aceves MD [address] [place] [address] 04/29/2023 12:35 PM EDT Hospital Encounter OR [facility], Operating Room, [facility] - 4th Floor [address] [place] [address] Felipe Hernandez MD [address] [place] [address] 04/29/2023 12:35 PM EDT - 04/29/2023 1:55 PM EDT Surgery OR [facility], Operating Room, [facility] - 4th Floor [address] [place] [address] Felipe Hernandez MD [address] [place] [address] BRONCHOSCOPY, RIGID/FLEXIBLE, INCLUDE FLUORO GUIDANCE, WHEN PERFORMED; W/ EBUS GUIDED TRANSTRACH AND/OR TRANSBRONCH SAMPLING, 1 OR 2 MEDIASTINAL AND/OR HILAR LYMPH NODE STATIONS/STRUCTURES 05/06/2023 11:00 AM EDT [facility]icine [facility], [facility] [address] [place] [place] [address] Wanda Dee RDN [address] [facility] [place] [address] Anabel Hubbard, Community Health Service Technician [address] [place] [address] 05/07/2023 10:00 AM EDT [facility], [facility] [address] [place] [address] Carissa Thomas RN [address] [place] [address] 05/13/2023 11:00 AM EDT [facility]medicine [facility], [place] [facility] [address] [place] [address] Andreia Horner PA-C [address] [place] [address] Anabel Hubbard, Community Health Service Technician [address] [place] [address] 05/29/2023 8:15 AM EDT Office Visit Hematology/Oncolog y [facility] [place] [address] [place] [address] Tevin Kenney MD 200 [place] [address] 07/03/2023 9:45 AM EDT Office Visit Otolaryngology/Hea d & Neck/Facial Plastic Surgery [address] [place] [address] Jas Valladares DO [address] [place] [address] 10/23/2023 9:00 AM EDT Imaging Radiology [address], [place] [address] [place] [address] Scheduled Procedures Name Priority Associated Diagnoses [...] nodes documented in this encounter Care Teams Nursery Technician Relationship Specialty Start Date End Date Alida Aceves MD [address] [facility] [place] [address] PCP - General Internal Medicine 08/15/22 documented as of this encounter
--- OUTSIDE RECORDS SUMMARY | 2023-04-27 17:04 | External Medical Summary | Summary of Care ---
Author Name Unknown Organization [facility] Address [address] [place] [address] Phone [phone] Care Team Providers Care Elementary Supervisor Name Role Phone Alida Aceves MD Primary Care Provider [phone] Reason for Visit * Reason Onset Date Comments Test Results 04/18/2023 CT chest Encounter Details Date Type Department Care Team (Late st Contact Info) Description 04/18/2023 Telephone Pulmonary Medicine Brea Null [address] [place] [phone] Felipe Hernandez MD [address] [place] [address] Test Results (CT chest) Allergies No known active allergiesdocumented as of this encounter (statuses as of 04/22/2023) Medications Medication Sig Dispensed Refills Start Date End Date Status Nystatin 044241 UNIT/ML Mouth/Throat Suspension Swish and swallow 5 [...] 01/15/2023 Ondansetron HCl 8 MG Oral Tablet (Zofran)Indications :Cancer of base of tongue (HCC) Take 1 Tablet by mouth every 8 hours as needed for Nausea. 30 Tablet 3 01/09/2023 Active Prochlorperazine Maleate 10 MG Oral Tablet (Compazine)Indicati ons:Cancer of base of tongue (HCC) Take 1 Tablet by mouth every 6 hours as needed for Nausea. 30 Tablet 3 01/09/2023 Active Voriconazole 200 MG Oral Tablet (Vfend) Take 1 Tablet by mouth in the morning and 1 Tablet before bedtime. 60 Tablet 5 01/09/2023 Active Additional Information Patient not taking.Reported on 04/07/2023 Nutren 1.5 Oral LiquidIndications:C ancer of base of tongue (HCC) Administer 250 mL six times daily, as directed through feeding tube via bolus syringe. 00485 mL 11 01/10/2023 Active Magnesium 400 MG Oral Capsule Take 1 Capsule by mouth in the morning. 0 Active Cefdinir 300 MG Oral Capsule (Omnicef) Take 1 Capsule by mouth in the morning and 1 Capsule before bedtime. 0 Active Incruse Ellipta 62.5 MCG/ACT Inhalation Aerosol Powder Breath Activated (umeclidinium [place]) Inhale 1 Puff by mouth in the morning. 12 Each 3 03/28/2023 Active Albuterol Sulfate HFA 108 (90 Base) MCG/ACT Inhalation Aerosol Solution Inhale 2 Puffs by mouth every 6 hours as needed (cough, SOB). 18 g 5 03/28/2023 Active Montelukast Sodium 10 MG Oral Tablet (Singulair) Take 1 Tablet by mouth in the morning. 90 Tablet 3 03/28/2023 Active Additional Information Patient not taking.Reported on 04/07/2023 fentaNYL 12 MCG/HR Transdermal Patch 72 Hour [...] radiation treatment. (02/13/2023--) ( radiation treatment at [facility]) -treatment completed at this time - [...] 04/28/2023 9:00 AM EDT Office Visit [facility] [address] [place] [address] Alida Aceves MD [address] [place] [address] 05/06/2023 11:00 AM EDT [facility]icine [facility], [facility] [address] [facility] [place] [address] Wanda Dee, BHAVIKN [address] [facility] [place] [address] Anabel Hubbard, Community Health Credit Counselor [address] [place] [address] 05/07/2023 10:00 AM EDT Home Visit [facility], [facility] [address] [facility] [place] [address] Carissa Thomas, RN [address] [place] [address] 05/13/2023 11:00 AM EDT [facility]medicine [facility], [place] [address] [place] [address] Andreia Horner PA-C [address] [place] [address] Anabel Hubbard, Community Health Credit Counselor [address] [place] [address] 05/29/2023 8:15 AM EDT Office Visit Hematology/Oncology [facility] 200 [facility] [place] [address] Tevin Kenney MD 200 [facility] [place] [address] 07/03/2023 9:45 AM EDT Office Visit Otolaryngology/Head & Neck/Facial Plastic Surgery [address] [place] [address] Jas Valladares DO [address] [place] [address] Health Maintenance Due Date Last Done Comments [...] 05/19/2020 Influenza Vaccine (FLU shot) (#1) 2022 DISCUSS TOBACCO CESSATION (REFER TO SMARTSET #3291) 10/16/2023 10/15/2022 O2 ASSESSMENT COMPLETED IN PAST YEAR FOR [...] filedocumented as of this encounter Care Teams Elementary Supervisor Relationship Specialty Start Date End Date Alida Aceves MD [address] [place] [address] PCP - General Internal Medicine 08/15/22 documented as of this encounter
--- OUTSIDE RECORDS SUMMARY | 2023-04-27 17:04 | External Medical Summary | Summary of Care ---
Author Name Unknown Organization [facility] Address [address] [place] [address] Phone [phone] Care Team Providers Care National Insurance Officer Name Role Phone Alida Aceves MD Primary Care Provider Reason for Visit * Reason Onset Date Comments Test Results 04/18/2023 CT chest Encounter Details Date Type Department Care Team (Late st Contact Info) Description 04/18/2023 Telephone Pulmonary Medicine Brea Null [address] [place] [phone] Felipe Hernandez MD [address] [place] [address] Test Results (CT chest) Allergies No known active allergiesdocumented as of this encounter (statuses as of 04/22/2023) Medications Medication Sig Dispensed Refills Start Date End Date Status Nystatin 729642 UNIT/ML Mouth/Throat Suspension Swish and swallow 5 [...] directed through feeding tube via bolus syringe. 44071 mL 11 01/10/2023 Active Magnesium 400 MG Oral Capsule Take 1 Capsule by mouth in the morning. 0 Active Cefdinir 300 MG Oral Capsule (Omnicef) Take 1 Capsule by mouth in the morning and 1 Capsule before bedtime. 0 Active Incruse Ellipta 62.5 MCG/ACT Inhalation Aerosol Powder Breath Activated (umeclidinium [place]) Inhale 1 Puff by mouth in the [...] hormone 04/16/2023 Last Assessment & Plan: Per [facility] records Protein-calorie malnutrition, severe 03/28/2023 Immunocompromised [...] radiation treatment. (02/13/2023--) ( radiation treatment at [facility]) -treatment completed at this time - [...] Description 04/28/2023 9:00 AM EDT Office Visit [facility] [address] [place] [address] Alida Aceves MD [address] [place], [place] [address] 04/29/2023 12:35 PM EDT Hospital Encounter OR [facility], Operating Room, [facility] - 4th Floor 400 [facility] [place] [address] Felipe Hernandez MD [address] [place] [facility] [place] [address] 04/29/2023 12:35 PM EDT - 04/29/2023 1:55 PM EDT Surgery OR [facility], Operating Room, [facility] - 4th Floor 400 [facility] [place] [address] Felipe Hernandez MD [address] [facility] [address] BRONCHOSCOPY, RIGID/FLEXIBLE, INCLUDE FLUORO GUIDANCE, WHEN PERFORMED; W/ EBUS GUIDED TRANSTRACH AND/OR TRANSBRONCH SAMPLING, 1 OR 2 MEDIASTINAL AND/OR HILAR LYMPH NODE STATIONS/STRUCTURES 05/06/2023 11:00 AM EDT [facility]icine [facility], [facility] [address] [facility] [place] [address] Wanda Dee, RDN [address] [facility] [place] [address] Anabel Hubbard, Community Health Animal Cytologist [address] [place] [address] 05/07/2023 10:00 AM EDT [facility], [facility] 132 [facility] [place] [address] Carissa Thomas, RN 132 [place] [address] 05/13/2023 11:00 AM EDT [facility]icine [facility], [place] [address] [place] [address] Andreia Horner PA-C [address] [place] [address] Anabel Hubbard, Community Health Animal Cytologist [address] [place] [address] 05/29/2023 8:15 AM EDT Office Visit Hematology/Oncolog y [facility] [address] [place] [address] Tevin Kenney MD [address] [place] [address] 07/03/2023 9:45 AM EDT Office Visit Otolaryngology/Hea d & Neck/Facial Plastic Surgery [address] [place] [address] Jas Valladares DO [address] [place] [address] 10/23/2023 9:00 AM EDT Imaging Radiology [address] [place] [address] Scheduled Procedures Name Priority Associated Diagnoses Date/Ti [...] filedocumented as of this encounter Care Teams National Insurance Officer Relationship Specialty Start Date End Date Alida Aceves MD [address] [place] [address] PCP - General Internal Medicine 08/15/22 documented as of this encounter
--- OUTSIDE RECORDS SUMMARY | 2023-04-27 17:04 | External Medical Summary | Summary of Care ---
Author Name Unknown Organization [facility] Address [address] [place] [address] Phone [phone] Care Team Providers Care Corporate Director Of Pharmacy Name Role Phone Alida Aceves MD Primary Care Provider [phone] Reason for Visit * Reason Onset Date Comments Appointment 04/18/2023 Encounter Details Date Type Department Care Team (Late st Contact Info) Description 04/18/2023 Telephone [facility], [facility] [address] [facility] [place] [address] Tahira Robin, Community Health Compressor Operator [address], [place] [id number] Appointment Allergies No known active allergiesdocumented as of this encounter (statuses as of 04/18/2023) Medications Medication Sig Dispensed Refills Start Date End Date Status Nystatin 224789 UNIT/ML Mouth/Throat Suspension Swish and swallow 5 [...] directed through feeding tube via bolus syringe. 53504 mL 11 01/10/2023 Active Magnesium 400 MG Oral Capsule Take 1 Capsule by mouth in the morning. 0 Active Cefdinir 300 MG Oral Capsule (Omnicef) Take 1 Capsule by mouth in the morning and 1 Capsule before bedtime. 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 (02/13/2023--) ( radiation treatment at [facility]) So far he is received 5 treatments with weekly cisplatin, recently he was admitted at [facility] for pulmonary infection and mucositis treatment was received on 03/13/2023. 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 Rescheduled appt for 05/13/23 w/Evens/Haydee @ 11am. Called Pt and left message advising to call back to confirm. documented in this encounter Plan of Treatment Upcoming Encounters Date Type Department Care Team (Late st Contact Info) Description 04/28/2023 9:00 AM EDT Office Visit [facility] [address] [place] [facility] [place] [phone] Alida Aceves MD [address] [place] [facility] [place] [address] 05/06/2023 11:00 AM EDT Telemedicine [facility], [facility] [address] [facility] [place] [address] Wanda Dee, RDN [address] [facility] [place] [address] Anabel Hubbard, Community Health Compressor Operator [address] [place] [address] 05/07/2023 10:00 AM EDT Home Visit [facility], [facility] [address] [facility] [place] [address] Carissa Thomas, RN 132 [place] [address] 05/13/2023 11:00 AM EDT [facility]medicine [facility], [facility] [address] [place] [address] Andreia Horner PA-C [address] [place] [address] Anabel Hubbard Community Health Compressor Operator [address] [place] [address] 05/29/2023 8:15 AM EDT Office Visit Hematology/Oncology [facility] 200 [place] [address] Tevin Kenney MD [address] [place] [address] 07/02/2023 3:20 PM EDT Office Visit Pulmonary Medicine Brea Null [address] [place] [phone] Felipe Hernandez MD [address] [place] [address] 07/03/2023 9:45 AM EDT Office Visit Otolaryngology/Head & Neck/Facial Plastic Surgery [address] [place] [address] Jas Valladares, DO [address] [place] [address] Health Maintenance Due Date Last Done Comments [...] filedocumented as of this encounter Care Teams Corporate Director Of Pharmacy Relationship Specialty Start Date End Date Alida Aceves MD [address] [place] [address] PCP - General Internal Medicine 08/15/22 documented as of this encounter
--- OUTSIDE RECORDS SUMMARY | 2023-04-27 17:04 | External Medical Summary | Summary of Care ---
Author Name Unknown Organization [facility] Address [address] [place] [address] Phone [phone] Care Team Providers Care Chaplain Name Role Phone Alida Aceves MD Primary Care Provider [phone] Reason for Visit * Reason Onset Date Comments Durable Medical Equipment 04/23/2023 nebuli zer Encounter Details Date Type Department Care Team (Late st Contact Info) Description 04/23/2023 Telephone Pulmonary Medicine Brea Null [address] [place] [phone] Felipe Hernandez MD [address] [facility] [place] [phone] Durable Medical Equipment (nebulizer) Allergies No known active allergiesdocumented as of this encounter (statuses as of 04/23/2023) Medications Medication Sig Dispensed Refills Start Date End Date Status Nystatin 854743 UNIT/ML Mouth/Throat Suspension Swish and swallow 5 [...] directed through feeding tube via bolus syringe. 23026 mL 11 01/10/2023 Active Magnesium 400 MG Oral Capsule Take 1 Capsule by mouth in the morning. 0 Active Cefdinir 300 MG Oral Capsule (Omnicef) Take 1 Capsule by mouth in the morning and 1 Capsule before bedtime. 0 Active Incruse Ellipta 62.5 MCG/ACT Inhalation Aerosol Powder Breath Activated (umeclidinium [place]) Inhale 1 Puff by mouth in the [...] Respimat 2.5 MCG/ACT Inhalation Aerosol Solution (Tiotropium [place] Monohydrate) Inhale 2 Puffs by mouth in the morning. 4 g 11 04/22/2023 Active Arformoterol Tartrate 15 MCG/2ML Inhalation Nebulization Solution (Brovana) Inhale 15 mcg by mouth in the morning and 15 mcg before bedtime. 120 mL 11 04/22/2023 Active Nebulizer/Tubing/Mo uthpiece Kit Use as directed with Brovana 1 Kit 04/22/2023 Active Flutter Device Use as directed. 1 Each 0 04/22/2023 Active Hospital, Clinic, or Other Facility Administered [...] hormone 04/16/2023 Last Assessment & Plan: Per [facility] records Protein-calorie malnutrition, severe [...] radiation treatment. (02/13/2023--) ( radiation treatment at [facility]) -treatment completed at this time - [...] encounter Miscellaneous Notes * Telephone Encounter - Amy Tang LPN - 04/23/2023 11:17 AM EDT Nebulizer sent to [facility] documented in this encounter Plan of Treatment Upcoming Encounters Date Type Department Care Team (Late st Contact Info) Description 04/28/2023 9:00 AM EDT Office Visit [place] [address] [place] [phone] Alida Aceves MD [address] [place] [address] 04/29/2023 12:35 PM EDT Hospital Encounter OR [facility], Operating Room, [facility] - 4th Floor [address] [place] [address] Felipe Hernandez MD [address] [place] [address] 04/29/2023 12:35 PM EDT - 04/29/2023 1:55 PM EDT Surgery OR [facility], Operating Room, [facility] - 4th Floor [address] [place] [address] Felipe Hernandez MD [address] [place] [address] BRONCHOSCOPY, RIGID/FLEXIBLE, INCLUDE FLUORO GUIDANCE, WHEN PERFORMED; W/ EBUS GUIDED TRANSTRACH AND/OR TRANSBRONCH SAMPLING, 1 OR 2 MEDIASTINAL AND/OR HILAR LYMPH NODE STATIONS/STRUCTURES 05/06/2023 11:00 AM EDT Telemedicine [facility], [facility] [address] [place] [facility] [place] [address] Wanda Dee, RDN [address] [place] [facility] [place] [address] Anabel Hubbard, [facility] Health Produce Wrapper [address] [place] [address] 05/07/2023 10:00 AM EDT Home Visit [facility], [facility] [address] [place] [address] Carissa Thomas, RN [address] [place] [address] 05/13/2023 11:00 AM EDT Telemedicine [facility], [facility] [address] [place] [address] Andreia Horner PA-C [address] [place] [address] Anabel Hubbard, Community Health Produce Wrapper [address] [place] [address] 05/29/2023 8:15 AM EDT Office Visit Hematology/Oncolog y [facility] [place] 200 [facility] [place] [phone] Tevin Kenney MD [address] [facility] [place] [address] 07/03/2023 9:45 AM EDT Office Visit Otolaryngology/Hea d & Neck/Facial Plastic Surgery [address] [facility] [place] [address] Jas Valladares DO [address] [facility] [place] [address] 10/23/2023 9:00 AM EDT Imaging Radiology [address] [place] [address] Scheduled Procedures Name Priority Associated Diagnoses Date/Ti [...] filedocumented as of this encounter Care Teams Chaplain Relationship Specialty Start Date End Date Alida Aceves MD [address] [place] [address] PCP - General Internal Medicine 08/15/22 documented as of this encounter
--- OUTSIDE RECORDS SUMMARY | 2023-04-27 17:04 | External Medical Summary | Summary of Care ---
Author Name Unknown Organization [facility] Address [address] [place] [address] Phone [phone] Care Team Providers Care Financial Business Analyst Name Role Phone Alida Aceves MD Primary Care Provider [phone] Reason for Visit * Reason Comments Pulmonary Function Test Encounter Details Date Type Department Care Team (Late st Contact Info) Description 04/22/2023 10:00 AM EDT PulmDiagnostic Pulmonary Function Lab, [facility] [address] [place] [address] [facility], Pulm Function Room 1 [address] [place], [place] [phone] Centrilobular emphysema (HCC)* Allergies No known active allergiesdocumented as of this encounter (statuses as of 04/22/2023) Medications Medication Sig Dispensed Refills Start Date End Date Status Nystatin 807116 UNIT/ML Mouth/Throat Suspension Swish and swallow 5 [...] directed through feeding tube via bolus syringe. 98489 mL 11 01/10/2023 Active Magnesium 400 MG Oral Capsule Take 1 Capsule by mouth in the morning. 0 Active Cefdinir 300 MG Oral Capsule (Omnicef) Take 1 Capsule by mouth in the morning and 1 Capsule before bedtime. 0 Active Incruse Ellipta 62.5 MCG/ACT Inhalation Aerosol Powder Breath Activated (umeclidinium [place]) Inhale 1 Puff by mouth in the [...] Respimat 2.5 MCG/ACT Inhalation Aerosol Solution (Tiotropium [place] Monohydrate) Inhale 2 Puffs by mouth in the morning. 4 g 11 04/22/2023 Active Arformoterol Tartrate 15 MCG/2ML Inhalation Nebulization Solution (Brovana) Inhale 15 mcg by mouth in the morning and 15 mcg before bedtime. 120 mL 11 04/22/2023 Active Hospital, Clinic, or Other Facility [...] hormone 04/16/2023 Last Assessment & Plan: Per [facility] records Protein-calorie malnutrition, severe 03/28/2023 Immunocompromised 03/28/2023 [...] radiation treatment. (02/13/2023--) ( radiation treatment at [facility]) -treatment completed at this time - [...] on file documented as of this encounter Progress Notes * Kylie Malik CRT - 04/22/2023 12:01 PM EDT Pt instructed on use of flutter valve. documented in this encounter Plan of Treatment Upcoming Encounters Date Type Department Care Team (Late st Contact Info) Description 04/28/2023 9:00 AM EDT Office Visit [facility] [address] [place] [address] Alida Aceves MD [address] [place] [address] 05/06/2023 11:00 AM EDT Telemedicine [facility], [facility] [address] [facility] [place] [address] Wanda Dee RDN [address] [place] [facility] [place] [address] Anabel Hubbard, Community Health Host [address] [place] [address] 05/07/2023 10:00 AM EDT Home Visit [facility], [facility] 132 [facility] [place] [address] Carissa Thomas, RN 132 [facility] [place] [address] 05/13/2023 11:00 AM EDT [facility]icine [facility], [place] [address] [place] [address] Andreia Horner PA-C [address] [place] [address] Anabel Hubbard, Community Health Host [address] [place] [address] 05/29/2023 8:15 AM EDT Office Visit Hematology/Oncology [facility] 200 [facility] [place] [address] Tevin Kenney MD [address] [place] [address] 07/03/2023 9:45 AM EDT Office Visit Otolaryngology/Head & Neck/Facial Plastic Surgery [address] [place] [address] Jas Valladares DO [address] [place] [address] 10/23/2023 9:00 AM EDT Imaging Radiology [address] [place], [place] [phone] Health Maintenance Due Date Last Done Comments [...] as of this encounter Visit Diagnoses Diagnosis Centrilobular emphysema (HCC)- Primary Other emphysema documented in this encounter Care Teams Financial Business Analyst Relationship Specialty Start Date End Date Alida Aceves MD [address] [place] [address] PCP - General Internal Medicine 08/15/22 documented as of this encounter
--- OUTSIDE RECORDS SUMMARY | 2023-04-27 17:04 | External Medical Summary | Summary of Care ---
Author Name Unknown Organization [facility] Address [address] [place] [address] Phone [phone] Care Team Providers Care Commissioned Fire Officer Name Role Phone Alida Aceves MD Primary Care Provider [phone] Reason for Visit * Reason Onset Date Comments Pre Cert/Prior Auth 01/21/2023 Encounter Details Date Type Department Care Team (Late st Contact Info) Description 01/21/2023 Telephone Oral Maxillofacial Surgery, [place] [address] [place] [address] Cristian Patel DMD, MD [address] [place] [address] Pre Cert/Prior Auth Allergies No known active allergiesdocumented as of this encounter (statuses as of 04/22/2023) Medications Medication Sig Dispensed Refills Start Date End Date Status Nystatin 849811 UNIT/ML Mouth/Throat Suspension Swish and swallow 5 [...] directed through feeding tube via bolus syringe. 30395 mL 11 01/10/2023 Active Hospital, Clinic, or Other Facility Administered [...] hormone 04/16/2023 Last Assessment & Plan: Per [facility] records Protein-calorie malnutrition, severe 03/28/2023 Immunocompromised 03/28/2023 [...] radiation treatment. (02/13/2023--) ( radiation treatment at [facility]) -treatment completed at this time - Continues [...] encounter Miscellaneous Notes * Telephone Encounter - Tanya Leone OSA - 01/21/2023 7:53 AM EST Authorization # [id number] was approved for [id number]. documented in this encounter Plan of Treatment Upcoming Encounters Date Type Department Care Team (Late st Contact Info) Description 04/28/2023 9:00 AM EDT Office Visit [facility] [address] [place] [address] Alida Aceves MD [address] [place] [address] 04/29/2023 12:35 PM EDT Hospital Encounter OR [facility], Operating Room, [facility] - 4th Floor [facility] [phone] Felipe Hernandez MD [address] [place] [address] 04/29/2023 12:35 PM EDT - 04/29/2023 1:55 PM EDT Surgery OR [facility], Operating Room, [facility] - 4th Floor [address] [facility] [address] Felipe Hernandez MD [address] [facility] [place] [id number] BRONCHOSCOPY, RIGID/FLEXIBLE, INCLUDE FLUORO GUIDANCE, WHEN PERFORMED; W/ EBUS GUIDED TRANSTRACH AND/OR TRANSBRONCH SAMPLING, 1 OR 2 MEDIASTINAL AND/OR HILAR LYMPH NODE STATIONS/STRUCTURES 05/06/2023 11:00 AM EDT [facility]medicine [facility], [facility] [address] [place] [address] Wanda eDe, RDN [address] [facility] [place] [address] Anabel Hubbard, Community Health Air Cargo Specialist [address] [place] [address] 05/07/2023 10:00 AM EDT Home Visit [facility], [facility] [address] [place] [address] Carissa Thomas, RN [address] [place] [address] 05/13/2023 11:00 AM EDT Telemedicine [facility], [facility] [address] [place] [address] Andreia Horner PA-C [address] [place] [address] Anabel Hubbard, Community Health Air Cargo Specialist [address] [place] [address] 05/29/2023 8:15 AM EDT Office Visit Hematology/Oncolog y [facility] [place] [address] [place] [address] Tevin Kenney MD [address] [place] [address] 07/03/2023 9:45 AM EDT Office Visit Otolaryngology/Hea d & Neck/Facial Plastic Surgery [address] [place] [address] Jas Valladares DO [address] [place] [address] 10/23/2023 9:00 AM EDT Imaging Radiology [facility] 1st [facility], [place] [address] [place] [address] Scheduled Procedures Name Priority Associated Diagnoses Date/Ti [...] filedocumented as of this encounter Care Teams Commissioned Fire Officer Relationship Specialty Start Date End Date Alida Aceves MD [address] [place] [address] PCP - General Internal Medicine 08/15/22 documented as of this encounter
--- OUTSIDE RECORDS SUMMARY | 2023-04-27 17:04 | External Medical Summary | Summary of Care ---
Author Name Unknown Organization [facility] Address [address] [place] [address] Phone [phone] Care Team Providers Care Emt B Name Role Phone Alida Aceves MD Primary Care Provider [phone] Encounter Details Date Type Department Care Team (Late st Contact Info) Description 01/17/2023 Telephone Oral Maxillofacial Surgery, [place] [address] [place] [phone] Arthur Feliz DDS, MD [address] [place] [phone] Allergies No known active allergiesdocumented as of this encounter (statuses as of 04/18/2023) Medications Medication Sig Dispensed Refills Start Date End Date Status Nystatin 594050 UNIT/ML Mouth/Throat Suspension Swish and swallow 5 [...] directed through feeding tube via bolus syringe. 02524 mL 11 01/10/2023 Active Hospital, Clinic, or [...] radiation treatment. (02/13/2023--) ( radiation treatment at [facility]) So far he is received 5 treatments with weekly cisplatin, recently he was admitted at [facility] for pulmonary infection and mucositis treatment was [...] encounter Miscellaneous Notes * Telephone Encounter - Homer Cortes OSA - 01/17/2023 9:17 AM EST Called and left message in regards to surgery date documented in this encounter Plan of Treatment Upcoming Encounters Date Type Department Care Team (Late st Contact Info) Description 04/21/2023 11:00 AM EDT [facility], [facility] [address] [place] [address] Nestor Martin PA-C [address] [place] [address] 04/28/2023 9:00 AM EDT Office Visit [facility] [address] [place] [address] Alida Aceves MD [address] [place] [address] 05/06/2023 11:00 AM EDT [facility]icine [facility], [facility] [address] [place] [facility] [place] [address] Wanda Dee RDN [address] [facility] [address] Anabel Hubbard, [facility] Client Technologies Analyst [address] [place] [address] 05/07/2023 10:00 AM EDT [facility], [facility] [place] [address] Carissa Thomas, RN [address] [place] [address] 05/13/2023 11:00 AM EDT Telemedicine [facility], [place] [facility] [address] [place] [address] Andreia Horner PA-C [address] [place] [address] Anabel Hubbard, Community Health Client Technologies Analyst [address] [place] [address] 05/29/2023 8:15 AM EDT Office Visit Hematology/Oncology [facility] [place] 200 [facility] [place], [place] [address] Tevin Kenney MD 200 [facility] [place] [address] 07/02/2023 3:20 PM EDT Office Visit Pulmonary Medicine Brea Null [address] [place] [address] Felipe Hernandez MD [address] [place] [address] 07/03/2023 9:45 AM EDT Office Visit Otolaryngology/Head & Neck/Facial Plastic Surgery [address] [place] [address] Jas Valladares DO [address] [place] [address] Health Maintenance Due Date Last Done Comments [...] 2022 DISCUSS TOBACCO CESSATION (REFER TO SMARTSET #[id number]) 10/16/2023 10/15/2022 O2 ASSESSMENT COMPLETED IN PAST [...] filedocumented as of this encounter Care Teams Emt B Relationship Specialty Start Date End Date Alida Aceves MD [address] [place] [address] PCP - General Internal Medicine 08/15/22 documented as of this encounter
--- OUTSIDE RECORDS SUMMARY | 2023-04-27 17:04 | External Medical Summary | Summary of Care ---
Author Name Unknown Organization [facility] Address [address] [place] [address] Phone [phone] Care Team Providers Care Clerk Checker Name Role Phone Alida Aceves MD Primary Care Provider [phone] Reason for Referral * Precert (Within 10 days (routine)) - Pending Review Specialty Diagnoses / Procedures Referred By Iris villanueva Referred To Contact Radiology Diagnoses Cavitary lung disease Procedures CT CHEST WO CONTRAST Felipe Hernandez MD [address] [address] Referral ID Status Reason Start Date Expiration Date V isits Requested Visits Authorized [id number] Pending Review 10/23/2023 999 999 Reason for Visit * Reason Comments Follow Up Encounter Details Date Type Department Care Team (Late st Contact Info) Description 04/22/2023 10:20 AM EDT Office Visit Pulmonary Medicine Brea Null [address] [address] Felipe Hernandez MD [address] [address] Cavitary lung disease*; Mediastinal lymphadenopathy; Aspergilloma (HCC); Non-compliance with treatment; COPD, severe (HCC); H/O tongue cancer Allergies No known active allergiesdocumented as of this encounter (statuses as of 04/22/2023) Medications Medication Sig Dispensed Refills Start Date End Date Status Nystatin 711136 UNIT/ML Mouth/Throat Suspension Swish and swallow 5 [...] directed through feeding tube via bolus syringe. 97711 mL 11 01/10/2023 Active Magnesium 400 MG Oral Capsule Take 1 Capsule by mouth in the morning. 0 Active Cefdinir 300 MG Oral Capsule (Omnicef) Take 1 Capsule by mouth in the morning and 1 Capsule before bedtime. 0 Active Incruse Ellipta 62.5 MCG/ACT Inhalation Aerosol Powder Breath Activated (umeclidinium Keaau) Inhale 1 Puff by mouth in the [...] Respimat 2.5 MCG/ACT Inhalation Aerosol Solution (Tiotropium Keaau Monohydrate) Inhale 2 Puffs by mouth in [...] hormone 04/16/2023 Last Assessment & Plan: Per [facility] records Protein-calorie malnutrition, severe 03/28/2023 Immunocompromised [...] radiation treatment. (02/13/2023--) ( radiation treatment at [facility]) -treatment completed at this time - Continues [...] ulcer 9 10/15/2022 Routine medical exam 03/22/2008 02/16/2 024 documented as of this encounter (statuses [...] Passive Smoke Exposure: Current Smokeless Tobacco: Never Tobacco Cessation:Counseling Given: Yes Comments:10/15/22 0.25 ppd Alcohol Use Standard Drinks/Week [...] Sign Reading Time Taken Comments Blood Pressure 122/70 04/22/2023 10:29 AM EDT Pulse 132 04/22/2023 10:29 AM EDT Temperature 36.7 C (98.1 F) 04/22/2023 1 0:29 AM EDT Respiratory Rate 20 04/22/2023 10:2 9 AM EDT Oxygen Saturation 93% 04/22/2023 10: 29 AM EDT at rest rm air Inhaled Oxygen Concentration - - Weight 52.2 kg (115 lb) 04/22/2023 10:2 9 AM EDT Height 182.9 cm (6') 04/22/2023 10:29 AM EDT Body Mass Index 15.6 04/22/2023 10:29 AM EDT documented in this encounter Progress Notes * Felipe Hernandez MD - 04/22/2023 12:47 PM EDT 04/22/2023 Pulmonary Medicine [facility] [address] [place] [id number] Gm Robins 1960 male 62 year old Subjective CC: Chief Complaint Patient presents with Follow Up HPI: Gm Robins is a 62 yo M, here for routine follow-up and to review the result of his test. Prior visit - 10/15/22 Patient was seen as a new patient for evaluation of abnormal findings noted on imaging studies which will include both CT scan of the chest and PET-CT. Has a history of squamous cell cancer of the tongue. Was still smoking as at the time of the visit and smoking cessation was emphasized. Findings on imaging studies were discussed and patient was subsequently scheduled for bronchoscopy with endobronchial ultrasound guidance. 04/22/23 Patient came today with complaints of persistent cough that is productive of clear white mucus. Associated postnasal drainage that may be contributing to his coughing. Denies any pain. Was not reallyable to talk likely as a results of his tongue cancer treatment. He has a PEG tube in place for feeding and noted that he has been doing well with it. Noted that he is using only short-acting bronchodilator as needed and not on any maintenance inhaler. 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 Patient was placed on voriconazole but did not get the medication. Patient had prescription for Incruse but did not feel the medication and not using the Singulair thatwas prescribed. During the visit patient sounded white and has a lot of secretions but was able to cough it up. He was able to maintain decent saturation on room air. While the patient was taking to the room, hewas asked whether he will like the sister or family member to, accompany him during the visit but the patient said no. Initially after the visit, patient was told that is sounded still congested and that it will be nice to get bronchoscopy done to cleaning up the next day but patient declined and wanted to have the testing done on Friday. Sister noted that patient was complaining of headache and was feeling that patient does not look okay to go home, however, patient was sitting quietly and did not say anything.Saturation and vitals remained okay. Patient wants to go home, and they were told to take patient to the ER if any worsening shortness of breath or new symptoms. Importantly was to make sure patient can get his medications and comply with them. Sister noted that patient is very stubborn, but she und erstands, that he is still the one to make the decision for himself. Patient can not talk audibly but came with a note pad that he writes on and able to answer simple questions and obey simple commands. He had CT chest done - 04/17/23, blood test - 02/12/23, jesús and 6 minutes walk test - 11/12/23 Interm History/Respiratory Symptoms Cough: moist cough, productive of clear to white mucous Hemoptysis: no Sinus Symptoms: PND Hospitalizations: no ED Trips: no Triggers: no Nocturnal: no CPAP/BiPAP/O2: no Flu Vaccine: refused Pneumovax: refused Prevnar: refused COVID 19: x 2 Mmrc Cat Question 04/21/2023 12:32 PM EDT - Filed by Patient When do you become breathless? (3) I stop for breath after walking about 100 yards or after a few minutes on level ground How frequently do you cough? (5) - I cough all the time Do you have phlegm in your chest? (3) Is your chest tight? (4) How breathless do you become when walking up a hill or steps? (5) - When I walk up a hill or one flight of stairs I am very breathless How limited are you doing activities at home? (4) How confident are you leaving home with your lung condition? (4) How soundly do you sleep? (5) - I don't sleep soundly because of my lung condition How much energy do you have? (4) Total MMRC Score (range: 0 - 4) 3 Total CAT Score (range: 0 - 40) 34 Copd Rescue Question 04/21/2023 12:33 PM EDT - Filed by Patient Have you used an antibiotic (e.g., azithromycin, doxycycline, augmentin) in the last 12 months because of your breathing or lung problem? No Have you added or increased the dose of a steroid (e.g., prednisone, solumedrol) in the last 12 months because of your breathing or lung problem? No Did you go to the ED, or were you hospitalized in the last 12 months because of your breathing or lung problem? Yes Myc Visit Accident Related Question Question 04/21/2023 12:33 PM EDT - Filed by Patient Is this visit related to an accident? (i.e work, motor vehicle) No ROS: Const: Denies fever and not feeling well. Eyes: Denies pain. ENMT: Denies pain and pressure of the ears. Denies sore throat. CV: Denies chest pain and palpitations. Resp: as noted above. GI: Denies abdominal pain, diarrhea, nausea and vomiting. : Urinary: denies dysuria and frequency. Musculo: Denies muscle pain. Neuro: Denies dizziness, headache, numbness Vinnie/Lymph: Denies excessive bleeding and easy bruising. Past Medical History: Diagnosis Date Cavitary lung disease Herpes zoster 02/11/1988 Tongue cancer (HCC) 2022 Past Surgical History: Procedure Laterality Date BRONCHOSCOPY, DX W/ EBUS, 1-2 NODES N/A 12/12/2022 BRONCHOSCOPY, RIGID/FLEXIBLE, INCLUDE FLUORO GUIDANCE, WHEN PERFORMED; W/ EBUS GUIDED TRANSTRACH AND/OR TRANSBRONCH SAMPLING, 1 OR 2 MEDIASTINAL AND/OR HILAR LYMPH NODE STATIONS/STRUCTURES performed by Felipe Hernandez MD at OR [facility] EGD, FLEXIBLE, PLACE GASTRO TUBE N/A 01/10/2023 ESOPHAGOGASTRODUODENOSCOPY (EGD), FLEXIBLE, TRANSORAL, WITH PERCUTANEOUS GASTROSTOMY INSERTION performed by Ra Bacon MD at 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 Tobacco Use Smoking status: Former Current packs/day: 0.00 Average packs/day: 1 pack/day for 35.0 years (35.0 ttl pk-yrs) Types: Cigarettes Quit date: 10/11/2022 Years since quittin.5 Passive exposure: Current Smokeless tobacco: Never Tobacco comments: 10/15/22 0.25 ppd Vaping Use Vaping Use: Never used Substance and Sexual Activity Alcohol use: Yes Comment: rare Drug use: Never Comment: coffee q am Sexual activity: Yes Partners: Female Social History Narrative 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 year s collegeservice: nohobbies/interests: Softball, skiing, water skiing volleyballtransfusions: NoTattoos- noexercise: yesdiet: noreligion/advent: OLVmarital status: 2006children: 0gc: 0ggc: dogexposure to violence/threats/abuse: nothings to improve:smoking One dog No mold Oil heating Social Determinants of Health Food Insecurity: Patient Declined (03/27/2023) Hunger Vital Sign Worried About Running Out of Food in the Last Year: Patient declined Ran Out of Food in the Last Year: Patient declined Family History Problem Relation Age of Onset Heart Disorder Mother around 50- HI Hypertension Mother Heart Disorder Father around 50-HI-- cabg x 2 Hypertension Father Stroke Sister Heart attack Brother 60 Leukemia Brother Mental Disorder None Stroke None Current Outpatient Medications Medication Sig Dispense Refill Nutren 1.5 Oral Liquid Administer 250 mL six times daily, as directed through feeding tube via bolus syringe. 06153 mL 11 Magnesium 400 MG Oral Capsule Take 1 Capsule by mouth in the morning. Albuterol Sulfate HFA 108 (90 Base) MCG/ACT Inhalation Aerosol Solution Inhale 2 Puffs by mouth every 6 hours as needed (cough, SOB). 18 g 5 fentaNYL 12 MCG/HR Transdermal Patch 72 Hour (Duragesic) Place 1 Patch over 72 hours topically on the skin every 3 days. 10 Patch 0 Morphine Sulfate (Concentrate) 100 MG/5ML Oral Solution Take 0.25 mL by mouth every 4 hours as needed for Pain, Breakthrough or Pain, Moderate. 30 mL 0 Spiriva Respimat 2.5 MCG/ACT Inhalation Aerosol Solution (Tiotropium Keaau Monohydrate) Inhale 2 Puffs by mouth in the morning. 4 g 11 Arformoterol Tartrate 15 MCG/2ML Inhalation Nebulization Solution (Brovana) Inhale 15 mcg by mouth in the morning and 15 mcg before bedtime. 120 mL 11 Nebulizer/Tubing/Mouthpiece Kit Use as directed with Brovana 1 Kit 99 Flutter Device Use as directed. 1 Each 0 Nystatin 003402 UNIT/ML Mouth/Throat Suspension Swish and swallow 5 mL in the morning and 5 mL at noon and 5 mL in the evening and 5 mL before bedtime. For thrush.. (Patient not taking: Reported on 04/22/2023) 240 mL 1 Mirtazapine 7.5 MG Oral Tablet (Remeron) Take 1 Tablet by mouth at bedtime. (Patient not taking: Reported on 04/22/2023) 30 Tablet 3 Ondansetron HCl 8 MG Oral Tablet (Zofran) Take 1 Tablet by mouth every 8 hours as needed for Nausea. (Patient not taking: Reported on 04/22/2023) 30 Tablet 3 Prochlorperazine Maleate 10 MG Oral Tablet (Compazine) Take 1 Tablet by mouth every 6 hours as needed for Nausea. (Patient not taking: Reported on 04/22/2023) 30 Tablet 3 Voriconazole 200 MG Oral Tablet (Vfend) Take 1 Tablet by mouth in the morning and 1 Tablet before bedtime. (Patient not taking: Reported on 04/07/2023) 60 Tablet 5 Cefdinir 300 MG Oral Capsule (Omnicef) Take 1 Capsule by mouth in the morning and 1 Capsule before bedtime. Incruse Ellipta 62.5 MCG/ACT Inhalation Aerosol Powder Breath Activated (umeclidinium Keaau) Inhale 1 Puff by mouth in the morning. (Patient not taking: Reported on 04/22/2023) 12 Each 3 Montelukast Sodium 10 MG Oral Tablet (Singulair) Take 1 Tablet by mouth in the morning. (Patient not taking: Reported on 04/22/2023) 90 Tablet 3 Current Facility-Administered Medications Medication Dose Route Frequency Provider Last Rate Last Admin Albuterol Sulfate (Proventil) (2.5 MG/3ML) 0.083% inhalation solution 2.5 mg 2.5 mg Nebulizer Felipe Goodson MD Albuterol Sulfate (Proventil) (5 MG/ML) 0.5% *conc* inhalation solution 2.5 mg 2.5 mg Nebulizer Felipe Terrazas MD 2.5 mg at 11/11/22 1235 Review of patient's allergies indicates: No Known Allergies Objective Filed Vitals: 04/22/23 1029 BP: 122/70 Pulse: 132 Resp: 20 Temp: 36.7 C (98.1 F) TempSrc: Infrared SpO2: 93% Weight: 52.2 kg (115 lb) Height: 1.829 m (6') Exam: Const: No signs of acute distress present. Head/Face: Normal on inspection. Eyes: Conjunctivae clear. ENMT: Oropharynx: No erythema, exudate or masses. Neck: Supple and symmetric. Resp: Respirations are regular. Not labored at rest on room air. Coughing intermittently, but was still able to cough up. Air entry is decreased bilaterally with transmitted sounds noted. CV: First and second heart sounds. Extremities: No edema of the lower limbs bilaterally. Abdomen: Positive bowel sounds. Musculo: Walks with a normal gait. Chronic muscle wasting. Skin: Skin is warm and dry. Neuro: No involuntary movement. Psych: Patient's attitude is cooperative. Mood is normal. Affect is normal. Tests reviewed with the patient: My interpretation CT chest done was reviewed by me in PACS. The images were shown to the patient and findings were discussed with him. Worsening of right upper lobe cavitary lesion with fluid level noted. Mediastinal lymphadenopathy noted. Blood test Alpha-1 antitrypsin level, Power level, COURTNEY, Anca profile - within acceptable limits. Rheumatoid Factor <14 IU/mL 30 High Spirogram shows evidence of severe obstructive ventilatory impairment. Lung volumes are suggestive of air trapping. Uncorrected diffusion capacity is severely decreased at 43% of predicted. 6 minute walk test on room air showed evidence of significant desaturation but not enough to require oxygen supplementation. Minimum saturation was 91%. Patient was able to walk a distance of 631 m which is more than the predicted of 478 m. Bronchoscopy results MS stain on the cell block is positive for fungal hyphal elements that are morphologically suggestive of Aspergillus, and negative for pneumocystis. Correlation with imaging and microbial cultures isessential. The findings in this case were discussed with on 12/16/2022 at 11:20am via secure messaging with confirmation. No viral inclusions identified. Comment: The histological sections of the cellblock preparation are cellular with numerous neutrophils, suggestive of an acute inflammatory process, like pneumonia. Assessment Cavitary lung disease (Primary) Initial bronchoscopy came back positive for aspergillosis. Prescription for voriconazole sent to the pharmacy but patient did not feel the medication. Discussed at length with patient's sister about the need for compliance. Patient's sister will be called again for further discussion. Patient will be scheduled for repeat CT scan of the chest prior to next visit. - CT CHEST WO CONTRAST; Future; Expected date: 10/23/2023 - DURABLE MEDICAL EQUIPMENT Mediastinal lymphadenopathy Noted on CT scan of the chest. Patient will be scheduled for bronchoscopy with endobronchial ultrasound guidance for further evaluation. Risk and benefits of procedure were discussed with the patient. Risks discussed include but not limited to bleeding, infection, pneumothorax, mediastinitis, prolonged intubation and hospitalization, and anesthetic complications. Anesthetic complications will be discussed further by the anesthesiologist. Patient agreed to have the procedure done and signed the consent. Patient has had bronchoscopy been in the past and understands the process. Postprocedure findings will be discussed and specimen obtained will be sent to lab for further analysis. H/O tongue cancer (HCC) Patient follows up with Oncology and compliance was emphasized. Not able to eat and has PEG tube inplace likely as a results of treatment. Aspergilloma (HCC) Bronchoscopy results were discussed with the patient over the phone. Prescription for voriconazole was sent to the pharmacy but patient did not get the medication. Discussed at length with the familymembers about this. It is likely that right upper lobe findings getting was due to worsening infection. Underlying malignancy can not be ruled out. Non-compliance with treatment Noncompliance with all forms of treatment. Discussed with the patient and this was also discussed with the patient's sister will came along for the visit. Plan is also to call the patient's sister and discussed at length to see how she can help patient compliant with the treatment. COPD, severe (HCC) Spirogram results noted above and shows evidence of severe obstructive ventilatory impairment. Patient may not be able to use regular inhaler, least not on Ellipta. Plan will be to try patient on Brovana and Spiriva. Albuterol bronchodilators with nebulization machine will be sent to the pharmacy. C ompliance was strongly emphasized. Patient encouraged to use flutter device to help with secretion management. Other orders - Spiriva Respimat 2.5 MCG/ACT Inhalation Aerosol Solution (Tiotropium Keaau Monohydrate); Inhale 2 Puffs by mouth in the morning. - Arformoterol Tartrate 15 MCG/2ML Inhalation Nebulization Solution (Brovana); Inhale 15 mcg by mouth in the morning and 15 mcg before bedtime. - Nebulizer/Tubing/Mouthpiece Kit; Use as directed with Brovana - Flutter Device; Use as directed. Plan Patient to start his voriconazole as prescribed Prescription for Brovana Prescription for Spiriva Prescription for albuterol solution and nebulizer machine Flutter device Diet and exercise as tolerated Discussed at length with patient and sister about the need for compliance Bronchoscopy with endobronchial ultrasound guidance - this week but patient wants it done on Friday CT scan of the chest prior to next visit Call the clinic if any worsening shortness of breath or new symptoms. Patient should go to the ER in the event of any new symptoms. Follow-up: Return in about 6 months (around 10/23/2023). | Check-out note: Bronchoscopy with C arm and EBUS as soon as possible - this week. F/u in [address] chest[address] Nebulizer machine andflutter device please. Felipe Hernandez MD DISCLAIMER: This dictation was verbally transcribed via Dictation system. Occasional Errors, spelling flaws andomissions are inherent in digital transcriptions. Please contact the undersigned for any clarification/correction in the dictated transcript as needed. documented in this encounter Nursing Notes * Amy Tang LPN - 04/22/2023 10:17 AM EDT FU: Cavitary lung disease Centrilobular emphysema Mediastinal lymphadenopathy Tobacco use disorder Asymptomatic bilateral carotid artery stenosis Tongue cancer Interm History/Respiratory Symptoms Cough: moist cough, productive of clear to white mucous Hemoptysis: no Sinus Symptoms: PND Hospitalizations: no ED Trips: no Triggers: no Nocturnal: no CPAP/BiPAP/O2: no Flu Vaccine: refused Pneumovax: refused Prevnar: refused COVID 19: x 2 Mmrc Cat Question 04/21/2023 12:32 PM EDT - Filed by Patient When do you become breathless? (3) I stop for breath after walking about 100 yards or after a few minutes on level ground How frequently do you cough? (5) - I cough all the time Do you have phlegm in your chest? (3) Is your chest tight? (4) How breathless do you become when walking up a hill or steps? (5) - When I walk up a hill or one flight of stairs I am very breathless How limited are you doing activities at home? (4) How confident are you leaving home with your lung condition? (4) How soundly do you sleep? (5) - I don't sleep soundly because of my lung condition How much energy do you have? (4) Total MMRC Score (range: 0 - 4) 3 Total CAT Score (range: 0 - 40) 34 Copd Rescue Question 04/21/2023 12:33 PM EDT - Filed by Patient Have you used an antibiotic (e.g., azithromycin, doxycycline, augmentin) in the last 12 months because of your breathing or lung problem? No Have you added or increased the dose of a steroid (e.g., prednisone, solumedrol) in the last 12 months because of your breathing or lung problem? No Did you go to the ED, or were you hospitalized in the last 12 months because of your breathing or lung problem? Yes Myc Visit Accident Related Question Question 04/21/2023 12:33 PM EDT - Filed by Patient Is this visit related to an accident? (i.e work, motor vehicle) No documented in this encounter Plan of Treatment Upcoming Encounters Date Type Department Care Team (Late st Contact Info) Description 04/28/2023 9:00 AM EDT Office Visit [facility] [address] [place] [address] Alida Aceves MD [address] [place] [address] 04/29/2023 12:35 PM EDT Hospital Encounter OR [facility], Operating Room, [facility] - 4th Floor [address] [place] [address] Felipe Hernandez MD [address] [place] [address] 04/29/2023 12:35 PM EDT - 04/29/2023 1:55 PM EDT Surgery OR [facility], Operating Room, [facility] - 4th Floor [address] [place] [address] Felipe Hernandez MD [address] [place] [address] BRONCHOSCOPY, RIGID/FLEXIBLE, INCLUDE FLUORO GUIDANCE, WHEN PERFORMED; W/ EBUS GUIDED TRANSTRACH AND/OR TRANSBRONCH SAMPLING, 1 OR 2 MEDIASTINAL AND/OR HILAR LYMPH NODE STATIONS/STRUCTURES 05/06/2023 11:00 AM EDT Telemedicine [facility], [facility] [address] [place] [facility] [place] [facility] [place] [address] Wanda Dee, RDN [address] [place] [facility] [place] [address] Anabel Hubbard, [facility] [employer] [address] [place] [address] 05/07/2023 10:00 AM EDT Home Visit [facility], [facility] [address] [place] [address] Carissa Thomas, RN [address] [place] [address] 05/13/2023 11:00 AM EDT Telemedicine [facility], [facility] [address] [place] [address] Andreia Horner PA-C [address] [place] [address] Anabel Hubbard, [facility] [address] [place] [address] 05/29/2023 8:15 AM EDT Office Visit Hematology/Oncolog y [address] [place] [address] [place] [phone] Tevin Kenney MD [address] [place] [address] 07/03/2023 9:45 AM EDT Office Visit Otolaryngology/Hea d & Neck/Facial Plastic Surgery [address] [place] [address] Jas Valladares DO [address] [place] [address] 10/23/2023 9:00 AM EDT Imaging Radiology [address] [address] Scheduled Orders Name Type Priority Associated Diagnoses Orde r Schedule CT CHEST WO CONTRAST Medical Imaging Routine Cavitary lung disease Expected: 10/23/2023 (Approximate), Expires: 05/22/2024 Scheduled Procedures Name Priority Associated Diagnoses Date/Ti [...] as of this encounter Visit Diagnoses Diagnosis Cavitary lung disease- Primary Other diseases of lung, not elsewhere classified Mediastinal lymphadenopathy Enlargement of lymph nodes Aspergilloma (HCC) Aspergillosis Non-compliance with treatment Personal history of noncompliance with medical treatment, presenting hazards to health COPD, severe (HCC) Chronic airway obstruction, not elsewhere classified H/O tongue cancer Personal history of malignant neoplasm of tongue Mediastinal lymphadenopathy Enlargement of lymph nodes documented in this encounter Care Teams Clerk Checker Relationship Specialty Start Date End Date Alida Aceves MD [address] [place] [address] PCP - General Internal Medicine 08/15/22 documented as of this encounter"
--- OUTSIDE RECORDS SUMMARY | 2023-04-27 17:04 | External Medical Summary | Summary of Care ---
Author Name Unknown Organization [facility] Address [address] [place] [address] Phone [phone] Care Team Providers Care Miniature Set Builder Name Role Phone Alida Aceves MD Primary Care Provider [phone] Reason for Visit * Reason Onset Date Comments Test Results 04/18/2023 CT chest Encounter Details Date Type Department Care Team (Late st Contact Info) Description 04/18/2023 Telephone Pulmonary Medicine Brea Null [address] [id number] Felipe Hernandez MD [address] [address] Test Results (CT chest) Allergies No known active allergiesdocumented as of this encounter (statuses as of 04/23/2023) Medications Medication Sig Dispensed Refills Start Date End Date Status Nystatin 295415 UNIT/ML Mouth/Throat Suspension Swish and swallow 5 [...] directed through feeding tube via bolus syringe. 51420 mL 11 01/10/2023 Active Magnesium 400 MG Oral Capsule Take 1 Capsule by mouth in the morning. 0 Active Cefdinir 300 MG Oral Capsule (Omnicef) Take 1 Capsule by mouth in the morning and 1 Capsule before bedtime. 0 Active Incruse Ellipta 62.5 MCG/ACT Inhalation Aerosol Powder Breath Activated (umeclidinium Hutchins) Inhale 1 Puff by mouth in the [...] hormone 04/16/2023 Last Assessment & Plan: Per [facility] records Protein-calorie malnutrition, severe 03/28/2023 Immunocompromised 03/28/2023 [...] ( radiation treatment at [facility]) -treatment completed at this time - Continues [...] Description 04/28/2023 9:00 AM EDT Office Visit [place] [address] [place] [address] Alida Aceves MD [address] [place] [address] 04/29/2023 12:35 PM EDT Hospital Encounter OR [facility], Operating Room, [facility] - 4th Floor [address] [place] [address] Felipe Hernandez MD [address] [place] [address] 04/29/2023 12:35 PM EDT - 04/29/2023 1:55 PM EDT Surgery OR [facility], Operating Room, [facility] - 4th Floor [address] [place] [address] Felipe Hernandez MD [address] [place] [address] BRONCHOSCOPY, RIGID/FLEXIBLE, INCLUDE FLUORO GUIDANCE, WHEN PERFORMED; W/ EBUS GUIDED TRANSTRACH AND/OR TRANSBRONCH SAMPLING, 1 OR 2 MEDIASTINAL AND/OR HILAR LYMPH NODE STATIONS/STRUCTURES 05/06/2023 11:00 AM EDT Telemedicine [facility], [facility] [address] [place] [facility] [place] [address] Wanda Dee, RDN [address] [place] [facility] [place] [address] Anabel Hubbard, Community Health [employer] Mechanic [address] [place] [address] 05/07/2023 10:00 AM EDT [facility] Visit [facility], [facility] [address] [facility] [address] Carissa Thomas, RN [address] [place] [address] 05/13/2023 11:00 AM EDT Telemedicine [facility], [place] [address] [place] [address] Andreia Horner PA-C [address] [place] [address] Anabel Hubbard, Community Health [employer] Mechanic [address] [place] [address] 05/29/2023 8:15 AM EDT Office Visit Hematology/Oncolog y [facility] [address] [place] [address] Tevin Kenney MD [address] [place] [address] 07/03/2023 9:45 AM EDT Office Visit Otolaryngology/Hea d & Neck/Facial Plastic Surgery [address] [place] [address] Jas Valladares, [address] [place] [address] 10/23/2023 9:00 AM EDT Imaging Radiology [address], [place] [address] [place] [address] Scheduled Procedures Name Priority Associated [...] filedocumented as of this encounter Care Teams Miniature Set Builder Relationship Specialty Start Date End Date Alida Aceves MD [address] [place] [address] PCP - General Internal Medicine 08/15/22 documented as of this encounter
--- OUTSIDE RECORDS SUMMARY | 2023-04-27 17:04 | External Medical Summary | Summary of Care ---
Author Name Unknown Organization [facility] Address [address] [place] [address] Phone [phone] Care Team Providers Care Interpretative Dancer Name Role Phone Alida Aceves MD Primary Care Provider [phone] Reason for Visit * Reason Onset Date Comments Appointment 04/17/2023 Encounter Details Date Type Department Care Team (Late st Contact Info) Description 04/17/2023 Telephone [facility], [facility] [address] [facility] [place] [address] Tahira Robin, Community Health Calender Worker Helper [address] [place], [place] [id number] Appointment Allergies No known active allergiesdocumented as of this encounter (statuses as of 04/17/2023) Medications Medication Sig Dispensed Refills Start Date End Date Status Nystatin 408849 UNIT/ML Mouth/Throat Suspension Swish and swallow 5 [...] directed through feeding tube via bolus syringe. 94011 mL 11 01/10/2023 Active Magnesium 400 MG Oral Capsule Take 1 Capsule by mouth in the morning. 0 Active Cefdinir 300 MG Oral Capsule (Omnicef) Take 1 Capsule by mouth in the morning and 1 Capsule before bedtime. 0 Active Incruse Ellipta 62.5 MCG/ACT Inhalation Aerosol Powder Breath Activated (umeclidinium Adkins) Inhale 1 Puff by mouth in the [...] as of this encounter (statuses as of 04/17/2023) Active Problems Problem Noted Date Diagnosed Date [...] radiation treatment. (02/13/2023--) ( radiation treatment at [facility]) So far he is received 5 treatments with weekly cisplatin, recently he was admitted at [facility] for pulmonary infection and mucositis treatment was received on 03/13/2023. 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 Called Pt and left a detailed message with appt for 05/06/23 @ 11am. Advised to call back to confirm. documented in this encounter Plan of Treatment Upcoming Encounters Date Type Department Care Team (Late st Contact Info) Description 04/28/2023 9:00 AM EDT [facility] [address] [facility] [phone] Alida Aceves MD [address] [place] [facility] [address] 05/06/2023 11:00 AM EDT Telemedicine [facility], [facility] [address] [facility] [place] [address] Wanda Dee, RDN [address] [facility] [place] [address] Anabel Hubbard, Community Health Calender Worker Helper [address] [place] [address] 05/07/2023 10:00 AM EDT Home Visit [facility], [facility] [address] [facility] [place] [address] Carissa Thomas, RN [address] [place] [address] 05/29/2023 8:15 AM EDT Office Visit [facility]ology[facility]On[facility] [address] [facility] [place] [phone] Tevin Kenney MD [address] [place] [address] 07/02/2023 3:20 PM EDT Office Visit Pulmonary Medicine [facility] [address] [facility] [place] [address] Felipe Hernandez MD [address] [place] [address] 07/03/2023 9:45 AM EDT Office Visit Otolaryngology/Head & Neck/Facial Plastic Surgery [address] [place] [address] Jas Valladares DO [address] [place] [address] Health Maintenance Due Date Last Done Comments [...] filedocumented as of this encounter Care Teams Interpretative Dancer Relationship Specialty Start Date End Date Alida Aceves MD [address] [place] [address] PCP - General Internal Medicine 08/15/22 documented as of this encounter
--- OUTSIDE RECORDS SUMMARY | 2023-04-27 17:04 | External Medical Summary | Summary of Care ---
Author Name Unknown Organization [facility] Address [address] [place] [address] Phone [phone] Care Team Providers Care Dry Folder Cloth Name Role Phone Alida Aceves MD Primary Care Provider [phone] Encounter Details Date Type Department Care Team (Late st Contact Info) Description 04/21/2023 11:00 AM EDT [facility] [address] [place] [address] Nestor Martin PA-C [address] [place] [address] Cancer of base of tongue (HCC)*; Centrilobular emphysema (HCC); Cavitary lung disease; Gastrostomy status (HCC); Syndrome of inappropriate secretion of antidiuretic hormone (HCC); Advanced care planning/counseling discussion Allergies No known active allergiesdocumented as of this encounter (statuses as of 04/22/2023) Medications Medication Sig Dispensed Refills Start Date End Date Status Nystatin 668283 UNIT/ML Mouth/Throat Suspension Swish and swallow 5 [...] directed through feeding tube via bolus syringe. 36568 mL 11 01/10/2023 Active Magnesium 400 MG Oral Capsule Take 1 Capsule by mouth in the morning. 0 Active Cefdinir 300 MG Oral Capsule (Omnicef) Take 1 Capsule by mouth in the morning and 1 Capsule before bedtime. 0 Active Incruse Ellipta 62.5 MCG/ACT Inhalation Aerosol Powder Breath Activated (umeclidinium [place]) Inhale 1 Puff by mouth in the [...] 04/16/2023 Last Assessment & Plan: Per [facility] records Protein-calorie malnutrition, severe 03/28/2023 Immunocompromised 03/28/2023 [...] radiation treatment. (02/13/2023--) ( radiation treatment at [facility]) -treatment completed at this time - Continues [...] Sign Reading Time Taken Comments Blood Pressure - - Pulse 115 04/21/2023 12:26 PM EDT Temperature 37 C (98.6 F) 04/21/2023 12:26 PM EDT Respiratory Rate 24 04/21/2023 12:26 PM EDT Oxygen Saturation 91% 04/21/2023 12:26 PM EDT Inhaled Oxygen Concentration - - Weight - - Height - - Body Mass Index - - documented in this encounter Progress Notes * Nestor Martin PA-C - 04/21/2023 10:58 AM EDT Images from the original note were not included. [facility]ing at Home Problem Oriented Charting Provider Visit Date: 04/21/2023 Time: 10:59 AM [facility] Sub-Program: Focused Care Management (3-9 months) Assessment and Plan #1 Cancer of base of tongue (HCC) (Primary) Assessment & Plan: DIAGNOSIS: - right lateral tongue squamous cell carcinoma, well to moderately differentiated, biopsy was done in August of 2022 -HPV status unknown. -large primary tumor measuring about 6.2 cm, T4 primary tumor, possible N1, M0. CURRENT TREATMENT: - combined chemotherapy with weekly cisplatin and radiation treatment. (02/13/2023--) ( radiation treatment at [facility]) -treatment completed at this time - Continues to follow with Dr Pablito dupree/onc Fentanyl 12mcg patch with prn morphine for pain control -still having some pain, using morphine approx twice daily, recommended to increase use as needed for pain, up to q4hr. If pain not controlled with increase morphine usage, can consider increase of fentanyl #2 Centrilobular emphysema (HCC) #3 Cavitary lung disease Overview: CT 04/16/22 - Significant interval worsening of consolidations, cavities and density in the right upper lobe with interval development of new consolidations and cavities in the posterior right lower lobe and a small lesion in superior segment of the left lower lobe Assessment & Plan: Following with pulmonary Needs repeat bronchoscopy and biopsy #4 Gastrostomy status (HCC) Assessment & Plan: Following with RDN Routine tube feeding, nutren 6x with water flushes #5 Syndrome of inappropriate secretion of antidiuretic hormone (HCC) Assessment & Plan: Per [facility] records Additional Medical Decision Making: Patient lives alone Has home health through [facility] Manages own meds and tube feeds Has hospital bed Reviewed goals of care, elects full treatment No living will or poa noted, reviewed blank forms and left with patient Will likely appoint brother Juan as POA, will discuss with him Will reach out to oncology and pulm to review prognosis Scheduled appointments in the next 60 days: Future Appointments-next 60 days Date/Time Provider Specialty Dept Phone 04/21/2023 11:00 AM Nestor Martin PA-C [facility] [phone] 04/28/2023 9:00 AM (Arrive by 8:45 AM) Alida Aceves MD Family Medicine [phone] 05/06/2023 11:00 AM Anabel Hubbard [facility]; Wanda Dee RDN [facility] [phone] 05/07/2023 10:00 AM Carissa Thomas RN [facility] [phone] 05/13/2023 11:00 AM Anabel Hubbard [facility]; Andreia Horner PA-C [facility] [phone] 05/29/2023 8:15 AM (Arrive by 8:00 AM) Tevin Kenney MD Hematology Oncology [phone] 07/02/2023 3:20 PM Felipe Hernandez MD Pulmonary [phone] 07/03/2023 9:45 AM (Arrive by 9:30 AM) Jas Valladares DO Otolaryngology [phone] A total of 30 minutes was spent face to face (via video-based telemedicine if designated as a telemedicine visit) Subjective Subjective Is this a Telemedicine Visit? No, this is an Home Visit. Reason For [facility] Visit: Advance Care Planning Discussion Current Concerns: Gm Robins is a 62 year old male seen today for a [facility] provider visit. PMH includes right lateral tongue squamous cell carcinoma, emphysema, cavitary lung disease, aspergillus lung infection, malnutrition, Today's concerns are: Seen for [facility] enrollment as well as palliative visit Keeps mouth shut during visit and communication via written notes Recently complete chemo/radiation for right lateral tongue SCC Continues to have c/o pain in mouth Using fentanyl 12mcg along with prn morphine Reports morphine is effective, but only using 1-2 times per day Bowels regular, no constipation Feeding via PEG tube Still reports approx 50-60lb weight loss since diagnosis Getting home health through [facility] Has in home help approx 2-3x week No children, and no family that live close Reviewed goals of care Continues to elect full treatment, unsure of prognosis Completed chemo/radiation, c/o fatigue, but feels like otherwise he tolerated well Additional Objective Objective Vitals: 04/21/23 1226 Temp: 37 C (98.6 F) Pulse: 115 Resp: 24 SpO2: 91% Last Weights: Wt Readings from Last 3 Encounters: 04/08/23 56.7 kg (125 lb) 03/31/23 56 kg (123 lb 6.4 oz) 03/28/23 55.7 kg (122 lb 12.8 oz) Last BPs: BP Readings from Last 4 Encounters: 04/08/23 95/65 04/07/23 98/60 03/31/23 111/69 03/28/23 120/64 General: alert and no distress Neuro: alert & oriented x 3 with fluent speech Heart: regular rate & rhythm and no murmur Lungs: scattered rhonchi bilaterally, no wheezing Abdomen: abdomen soft, non-tender, and normal bowel sounds Ext: Normal extremities without edema Lab Review: I have reviewed the following results: Imaging results in the last [address] CHEST WO CONTRAST Result Date: 04/18/2023 IMPRESSION Significant interval worsening of consolidations, cavities and density in the right upper lobe with interval development of new consolidations and cavities in the posterior right lower lobe and a small lesion in superior segment of the left lower lobe. Findings may be secondary to worsening Aspergillus infection however other etiologies including other fungus and/or underlying malignancy cannot be excluded. Further evaluation with pulmonary consultation if not already involved recommended as clinically warranted. Other findings as above XR CHEST 1 VIEW Result Date: 01/10/2023 IMPRESSION: Cavitary area of consolidation right upper lung consistent with previous CT findings. THIS DOCUMENT HAS BEEN ELECTRONICALLY SIGNED BY ANDIE BONNER MD CT CHEST W CONTRAST Result Date: 12/31/2022 IMPRESSION: Stable right apical cavitary lesion with soft tissue nodule. COMMENTS: In the absence of a history or active diagnosis of lung cancer, it is recommended that this patient with emphysema be evaluated for enrollment in a low dose CT lung cancer screening program. THIS DOCUMENT HAS BEEN ELECTRONICALLY SIGNED BY TRACE OLIVIA MD CT NECK W CONTRAST Result Date: 12/26/2022 IMPRESSION Mild interval enlargement of the ulcerated right tongue mass corresponding to the biopsy-proven squamous cell carcinoma. Worsening extent of invasion in the tongue and invasion in the right sublingual gland and new obstruction of the right submandibular duct with mild right sublingual magali loadenitis. Redemonstrated 7 mm right level 1 B lymph node, again indeterminate. 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 COPD. THIS DOCUMENT HAS BEEN ELECTRONICALLY SIGNED BY MANOJ JACKSON MD CT NECK W CONTRAST Result Date: 10/25/2022 IMPRESSION 1. Large mass involving the right aspect of the tongue consistent with the patient's history of squamous cell carcinoma. This extends across the midline and there is also extension into the soft tissues anterior to the body of the mandible on the right as seen on recent PET CT. 2. Rounded level 1B lymph node on the right does not meet size criteria for pathologic involvement, but is viewed with suspicion given morphology and increased FDG accumulation on previous PET imaging. 3. Similar appearance of cavitary lesion of the right lung apex. This could be further evaluated with dedicated chest CT. BMP results Recent Labs Units 04/08/23 1003 03/28/23 1039 03/13/23 0802 SODIUM - [facility] mmol/L 132* 131* 134* POTASSIUM - [facility] mmol/L 5.2* 4.9 4.2 CHLORIDE - [facility] mmol/L 93* 91* 93* CO2 - [facility] mmol/L 26 26 28 CREATININE - [facility] mg/dL 0.8 0.8 0.8 BUN - [facility] mg/dL 22* 33* 27* Lipid panel results Recent Labs Units 08/20/22 0930 CHOLESTEROL - [facility] mg/dL 176 LDL CHOLESTEROL (CALCULATED) - [facility] mg/dL 91 HDL CHOLESTEROL - [facility] mg/dL 70 TRIGLYCERIDES - [facility] mg/dL 76 CBC results Recent Labs Units 04/08/23 1003 03/28/23 1039 03/13/23 0802 WBC K/uL 17.89* 6.49 8.11 HGB g/dL 10.2* 10.4* 12.0* HCT % 31.9* 32.3* 37.6* PLT K/uL 460* 396 172 HbA1c results No results for input(s): "HGBA1C" in the last 76536 hours. Hepatic panel results Recent Labs Units 04/08/23 1003 03/28/23 1039 03/13/23 0802 PROTEIN - [facility] g/dL 7.8 7.4 7.6 BILIRUBIN, TOTAL - [facility] mg/dL 0.4 0.3 0.5 ALKALINE PHOSPHATASE - [facility] U/L 93 88 100 AST - [facility] U/L 18 22 16 ALT - [facility] U/L 7* 16 11 Nestor Martin PA-C 10:59 AM *Communication sent to PCP (via [facility] if [facility]), [facility] Care Team members,relevant Specialty Care Physicians* documented in this encounter Miscellaneous Notes * ACP (Advance Care Planning) - Nestor Martin PA-C - 04/22/2023 9:04 AM EDT Images from the original note were not included. Patient-centered Communication 04/21/2023 The patient/surrogate voluntarily agreed to participate in advance care planning discussion. They were advised that this is a separate service which may incur out of pocket cost in the form of copayment and/or deductibles. Location: Home Individual(s) present for conversation: Patient Decisions Synopsis Smart[employer] Most Recent Value Past ~10 years 04/22/2023 08:51 Decisions CPR decision: Patient chooses CPR 04/22/2023 Patient chooses CPR Intubation/Mechanical Ventilation decision: Patient chooses Intubation/mechanical ventilation 04/22/2023 Patient chooses Intubation/mechanical ventilation Antibiotic therapy decision: Patient chooses Antibiotic therapy 04/22/2023 Patient chooses Antibiotic therapy Chemotherapy decision: Patient chooses Chemotherapy 04/22/2023 Patient chooses Chemotherapy Radiation therapy decision: Patient chooses Radiation therapy 04/22/2023 Patient chooses Radiation therapy Surgical procedure(s) decision: Patient chooses Surgical procedure 04/22/2023 Patient chooses Surgical procedure Hospice decision: Undecided about Hospice would consider hospice down the road 04/22/2023 Undecided about Hospice would consider hospice down the road Dying at home decision: Undecided about Dying at home 04/22/2023 Undecided about Dying at home Additional Comments Synopsis [employer] Most Recent Value Past ~10 years 04/22/2023 08:51 Additional Comments Additional Comments: Reviewed living will/poa, left blank forms for patient to review with brother Juan. 04/22/2023 Reviewed living will/poa, left blank forms for patient to review with brother Juan. Discerning What Matters Most to the Patient: Synopsis [employer] Most Recent Value Past ~10 years 04/22/2023 08:50 Discerning What Matters Most to the Patient In their own words, patient's UNDERSTANDING of their illness is: aware of large primary tumor of tongue as well as cavitary lung disease 04/22/2023 aware of large primary tumor of tongue as well as cavitary lung disease Their current SYMPTOMS include: Pain;Tiredness;Shortnes of breath;Depression;Reduced overall well being 04/22/2023 Pain;Tiredness;Shortnes of breath;Depression;Reduced overall well being The patient's HOPES are: Cure;Avoid symptoms 04/22/2023 Cure;Avoid symptoms Avoid symptoms include: Pain;Dyspnea 04/22/2023 Pain;Dyspnea Source: Content from Consider[employer] Program Aligning Care With What Matters Most: Serv[employer] Most Recent Value Past ~10 years 04/22/2023 08:51 Aligning Care With What Matters Most Interventions/Choices: CPR;Intubation/mechanical ventilation;Chemotherapy;Radiation therapy;Antibiotic therapy;Surgical procedure;Hospice; at home 04/22/2023 CPR;Intubation/mechanical ventilation;Chemotherapy;Radiation therapy;Antibiotic therapy;Surgical procedure;Hospice; at home Source: Content from [employer]ing [employer] Program 35 minutes spent in direct [id number] discussion today, Nestor Martin PA-C * Assessment & Plan Note - Nestor Martin PA-C - 04/21/2023 5:19 PM EDT Associated Problem(s): Gastrostomy status (HCC) Following with RDN Routine tube feeding, nutren 6x with water flushes * Assessment & Plan Note - Nestor Martin PA-C - 04/21/2023 5:15 PM EDT Associated Problem(s): Syndrome of inappropriate secretion of antidiuretic hormone (HCC) Per [facility] records * Assessment & Plan Note - Nestor Martin PA-C - 04/21/2023 5:08 PM EDT Associated Problem(s): Cavitary lung disease Following with pulmonary Needs repeat bronchoscopy and biopsy * Assessment & Plan Note - Nestor Martin PA-C - 04/21/2023 12:31 PM EDT Associated Problem(s): Cancer of base of tongue (HCC) DIAGNOSIS: - right lateral tongue squamous cell carcinoma, well to moderately differentiated, biopsy was done in August of 2022 -HPV status unknown. -large primary tumor measuring about 6.2 cm, T4 primary tumor, possible N1, M0. CURRENT TREATMENT: - combined chemotherapy with weekly cisplatin and radiation treatment. (02/13/2023--) ( radiation treatment at [facility]) -treatment completed at this time - Continues to follow with Dr Pablito dupree/onc Fentanyl 12mcg patch with prn morphine for pain control -still having some pain, using morphine approx twice daily, recommended to increase use as needed for pain, up to q4hr. If pain not controlled with increase morphine usage, can consider increase of fentanyl documented in this encounter Plan of Treatment Upcoming Encounters Date Type Department Care Team (Late st Contact Info) Description 04/28/2023 9:00 AM EDT Office Visit [facility] [address] [place] [address] Alida Aceves MD [address] [place] [address] 05/06/2023 11:00 AM EDT Telemedicine [facility], [facility] [address] [facility] [address] Wanda Dee, BHAV[place]N [address] [facility] [place] [address] Anabel Hubbard, [facility] Man [address] [place] [address] 05/07/2023 10:00 AM EDT Home Visit [facility], [facility] [address] [place] [address] Carissa Thomas, RN [address] [facility] [place] [address] 05/13/2023 11:00 AM EDT Telemedicine [facility], [facility] [address] [place] [address] Andreia Horner PA-C [address] [place] [address] Anabel Hubbard, [facility] [address] [place] [address] 05/29/2023 8:15 AM EDT Office Visit Hematology/Oncology [facility] [place] [address] [facility] [place] [address] Tevin Kenney MD [address] [place], [place] [address] 07/03/2023 9:45 AM EDT Office Visit Otolaryngology/Head & Neck/Facial Plastic Surgery [address] [place] [address] Jas Valladares DO [address] [place] [address] Health Maintenance Due Date Last Done Comments [...] as of this encounter Visit Diagnoses Diagnosis Cancer of base of tongue (HCC)- Primary Malignant neoplasm of base of tongue Centrilobular emphysema (HCC) Other emphysema Cavitary lung disease Other diseases of lung, not elsewhere classified Gastrostomy status (HCC) Gastrostomy status Syndrome of inappropriate secretion of 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
--- OUTSIDE RECORDS SUMMARY | 2023-04-27 17:04 | External Medical Summary | Summary of Care ---
Author Name Unknown Organization [facility] Address [address] [place] [address] Phone [phone] Care Team Providers Care Science Teacher Name Role Phone Alida Aceves MD Primary Care Provider [phone] Reason for Visit * Reason Onset Date Comments [facility]: Maintenance 04/14/2023 Encounter Details Date Type Department Care Team (Late st Contact Info) Description 04/14/2023 Telephone [facility], [facility] [address] [facility] [place] [address] Nestor Martin PA-C [address] [facility] [address] [facility]: Maintenance Allergies No known active allergiesdocumented as of this encounter (statuses as of 04/18/2023) Medications Medication Sig Dispensed Refills Start Date End Date Status Nystatin 949654 UNIT/ML Mouth/Throat Suspension Swish and swallow 5 [...] directed through feeding tube via bolus syringe. 35619 mL 11 01/10/2023 Active Magnesium 400 MG Oral Capsule Take 1 Capsule by mouth in the morning. 0 Active Cefdinir 300 MG Oral Capsule (Omnicef) Take 1 Capsule by mouth in the morning and 1 Capsule before bedtime. 0 Active Incruse Ellipta 62.5 MCG/ACT Inhalation Aerosol Powder Breath Activated (umeclidinium [place]) Inhale 1 Puff by mouth in the [...] radiation treatment. (02/13/2023--) ( radiation treatment at [facility]) So far he is received 5 treatments with weekly cisplatin, recently he was admitted at [facility] for pulmonary infection and mucositis treatment was [...] encounter Miscellaneous Notes * Telephone Encounter - Lissett Gonzales OSA - 04/18/2023 10:55 AM EST Patient is non verbal and has to communicate by text or MyG. I sent a MyG about visit on 04/21/23 at11am with Nestor Martin PA-C. I also sent a txt message asking about to reply if visit is okay YUE Conklin * Telephone Encounter - Lissett Gonzales OSA - 04/16/2023 1:05 PM EST Lmom for patient to return call. Looking to schedule patient for Nestor Martin PA-C for new palliative care. Can offer: 05/08/23 at 9:00am or 3:00pm Phone number provided for [facility] at [phone]. YUE Conklin * Telephone Encounter - Nestor Martin PA-C - 04/14/2023 9:04 AM EST [facility] palliative referral received. Thank you for the referral. We'll schedule routine in-person visit. If any additional concerns arise before our visit, please let us know. Nestor Martin PA-C [facility], [facility] [address] [facility] [place] [address] 9:04 AM documented in this encounter Plan of Treatment Upcoming Encounters Date Type Department Care Team (Late st Contact Info) Description 04/21/2023 11:00 AM EDT Home Visit [facility], [address] [place] [address] Nestor Martin PA-C [address] [facility] [place] [address] 04/28/2023 9:00 AM EDT Office Visit [facility] [address] [place] [address] Alida Aceves MD [address] [place] [address] 05/06/2023 11:00 AM EDT Telemedicine [facility], [facility] [address] [facility] [place] [address] Wanda Dee RDN [address] [facility] [place] [address] Anabel Hubbard, Community [facility] Extractor Filler [address] [place] [address] 05/07/2023 10:00 AM EDT Home Visit [facility], [facility] 132 [place] [address] Carissa Thomas, RN 132 [place] [address] 05/13/2023 11:00 AM EDT Telemedicine [facility], [place] [facility] [address] [place] [address] Andreia Horner PA-C [address] [place] [address] Anabel Hubbard, Community [facility] Ext[facility] Filler [address] [place] [address] 05/29/2023 8:15 AM EDT Office Visit Hematology/Oncology [facility] 200 [facility] [place] [address] Tevin Kenney MD [address] [place] [address] 07/02/2023 3:20 PM EDT Office Visit Pulmonary Medicine Brea Null [address] [place] [id number] Felipe Hernandez MD [address] [facility] [place] [address] 07/03/2023 9:45 AM EDT Office Visit Otolaryngology/Head & Neck/Facial Plastic Surgery [address] [place] [address] Jas Valladares DO [address] [place] [address] Health Maintenance Due Date Last Done Comments [...] filedocumented as of this encounter Care Teams Science Teacher Relationship Specialty Start Date End Date Alida Aceves MD [address] [place] [address] PCP - General Internal Medicine 08/15/22 documented as of this encounter
--- OUTSIDE RECORDS SUMMARY | 2023-04-27 17:05 | External Medical Summary | Summary of Care ---
Author Name Unknown Organization [facility] Address [address] [place] [address] Phone [phone] Care Team Providers Care Hydrate Thickener Operator Name Role Phone Alida Aceves MD Primary Care Provider [phone] Reason for Referral * Evaluate & Treat - Unlimited Visits (Within 10 days (routine)) - Authorized Specialty Diagnoses / Procedures Referred By Contac t Referred To Contact Hospice and Palliative Medicine / Palliative Medicine Diagnoses Cancer of base of tongue (HCC) Alida Aceves MD [address] [place] [address] Referral ID Status Reason Start Date Expiration Date Visits Requested Visits Authorized [id number] Authorized Specialty Services Required 04/11/2023 999 999 Question Answer Referral Priority Within 10 days (routine) Where should this appointment be scheduled? [facility] Reason for Referral: Cancer Palliative Medicine To Address: Goals of Care Referral Location [facility] - [facility]iative Care (Available only for [facility]) Comments Cancer of base of tongue (HCC) [C01] Protein-calorie malnutrition, severe (HCC) [E43] Centrilobular emphysema (HCC) [J43.2] Encounter Details Date Type Department Care Team (Late st Contact Info) Description 04/11/2023 Orders Only [place] [address] [place] [phone] Alida Aceves MD [address] [place] [address] Cancer of base of tongue (HCC)*; Protein calorie malnutrition (HCC); Centrilobular emphysema (HCC) Allergies No known active allergiesdocumented as of this encounter (statuses as of 04/11/2023) Medications Medication Sig Dispensed Refills Start Date End Date Status Nystatin 605400 UNIT/ML Mouth/Throat Suspension Swish and swallow 5 [...] directed through feeding tube via bolus syringe. 53196 mL 11 01/10/2023 Active Magnesium 400 MG Oral Capsule Take 1 Capsule by mouth in the morning. 0 Active Cefdinir 300 MG Oral Capsule (Omnicef) Take 1 Capsule by mouth in the morning and 1 Capsule before bedtime. 0 Active Incruse Ellipta 62.5 MCG/ACT Inhalation Aerosol Powder Breath Activated (umeclidinium [place]) Inhale 1 Puff by mouth in the [...] as of this encounter (statuses as of 04/11/2023) Active Problems Problem Noted Date Diagnosed Date Protein-calorie malnutrition, severe 03/28/2023 Immunocompromised 03/28/2023 Rhinitis 03/28/2023 Cancer of base of tongue 01/08/2023 Encounter for antineoplastic chemotherapy 2022 Centrilobular emphysema 11/11/2022 Cavitary lung disease 10/15/2022 Pain in limb 04/04/2008 Family history of ischemic heart disease 009 History of tobacco use 03/22/2008 Venous insufficiency 10/14/2002 documented as of this encounter (statuses as of 04/11/2023) Resolved Problems Problem Noted Date Diagnosed Date Resolved Date 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 9 10/15/2022 Routine medical exam 03/22/2008 024 documented as of this encounter (statuses as of 04/11/2023) Immunizations Name Administration Dates Next Due Pneumococcal [...] Team (Late st Contact Info) Description 04/17/2023 8:45 AM EST Imaging Radiology [address], [address] [place] [address] 04/17/2023 9:30 AM EST Telemedicine [facility], [place] [address] [place] [address] Andreia Honrer PA-C [address] [place] [address] Anabel Hubbard, Community Health Clip And Hanger Attacher [address] [facility] [place] [address] 04/28/2023 9:00 AM EDT Office Visit [facility] [address] [place] [facility] [place] [phone] Alida Aceves MD [address] [place] [address] 05/07/2023 10:00 AM EDT [facility] Visit [facility] [address] [facility] [place] [address] Carissa Thomas RN [address] [place] [address] 05/29/2023 8:15 AM EDT Office Visit Hematology/Oncology [facility] [address] [place] [phone] Tevin Kenney MD [address] [place] [address] 07/02/2023 3:20 PM EDT [facility] [address] [place] [facility] [place] [address] Felipe Hernandez MD [address] [place] [address] Scheduled Referrals Name Type Priority Associated Diagnoses Orde r Schedule PALLIATIVE CARE REFERRAL OP Referral Within 10 days (routine) Cancer of base of tongue (HCC) Ordered: 04/11/2023 Health Maintenance Due Date Last Done Comments [...] or Tdap) 02/10/2015 02/10/2005 COVID-19 Vaccine (3 2022-2 4 season) 2022 01/18/2021, 05/19/2020 Influenza [...] Primary Malignant neoplasm of base of tongue Protein calorie malnutrition (HCC) Unspecified protein-calorie malnutrition Centrilobular emphysema (HCC) Other emphysema documented in this encounter Care Teams Hydrate Thickener Operator Relationship Specialty Start Date End Date Alida Aceves MD [address] [place] [address] PCP - General Internal Medicine 08/15/22 documented as of this encounter
--- OUTSIDE RECORDS SUMMARY | 2023-04-27 17:05 | External Medical Summary | Summary of Care ---
Author Name Unknown Organization [facility] Address [address] [place] [address] Phone [phone] Care Team Providers Care Plant Packer Name Role Phone Alida Aceves MD Primary Care Provider [phone] Reason for Visit * Reason Onset Date Comments Home Tube Feeding 04/10/2023 Encounter Details Date Type Department Care Team (Late st Contact Info) Description 04/10/2023 9:30 AM EST Scheduled Telephone [facility] [address] [place] [address] Jaqui Edouard RDN [address] [facility] [address] Allergies No known active allergiesdocumented as of this encounter (statuses as of 04/10/2023) Medications Medication Sig Dispensed Refills Start Date End Date Status Nystatin 480850 UNIT/ML Mouth/Throat Suspension Swish and swallow 5 [...] directed through feeding tube via bolus syringe. 33502 mL 11 01/10/2023 Active Magnesium 400 MG Oral Capsule Take 1 Capsule by mouth in the morning. 0 Active Cefdinir 300 MG Oral Capsule (Omnicef) Take 1 Capsule by mouth in the morning and 1 Capsule before bedtime. 0 Active Incruse Ellipta 62.5 MCG/ACT Inhalation Aerosol Powder Breath Activated (umeclidinium [place]) Inhale 1 Puff by mouth in the [...] as of this encounter (statuses as of 04/10/2023) Active Problems Problem Noted Date Diagnosed Date Protein-calorie malnutrition, severe 03/28/2023 Immunocompromised 03/28/2023 Rhinitis 03/28/2023 Cancer of base of tongue 01/08/2023 Encounter for antineoplastic chemotherapy 2022 Centrilobular emphysema 11/11/2022 Cavitary lung disease 10/15/2022 Pain in limb 04/04/2008 Family history of ischemic heart disease 009 History of tobacco use 03/22/2008 Venous insufficiency 10/14/2002 documented as of this encounter (statuses as of 04/10/2023) Resolved Problems Problem Noted Date Diagnosed Date Resolved Date 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 Also, forwarded a message to him via Jott regarding same. Jaqui Edouard RDN, Clinical Dietitian II, [facility] Clinical Nutrition Services [facility] [address] [place] [address] Available via Jott Portal documented in this encounter Plan of Treatment Upcoming Encounters Date Type Department Care Team (Late st Contact Info) Description 04/17/2023 8:45 AM EST Imaging Radiology [facility] 1st [facility] [place] [address] [place] [address] 04/17/2023 9:30 AM EST Telemedicine [facility], [facility] [address] [place] [address] Andreia Horenr PA-C [address] [place] [address] Anabel Hubbard, Community Health Dermatological Surgeon [address] [facility] [place] [address] 04/28/2023 9:00 AM EDT Office Visit [address] [phone] Alida Aceves MD [address] [place] [address] 05/07/2023 10:00 AM EDT Home Visit [facility], [facility] [address] [place] [address] Carissa Thomas, RN [address] [place] [address] 05/29/2023 8:15 AM EDT Office Visit Hematology/Oncology [facility] [place] [address] [facility] [place] [phone] Tevin Kenney MD [address] [facility] [address] 07/02/2023 3:20 PM EDT Office Visit Pulmonary Medicine Brea Null [address] [place] [phone] Felipe Hernandez MD [address] [place] [address] Health Maintenance Due Date Last Done Comments [...] filedocumented as of this encounter Care Teams Plant Packer Relationship Specialty Start Date End Date Alida Aceves MD [address] [place] [address] PCP - General Internal Medicine 08/15/22 documented as of this encounter
--- OUTSIDE RECORDS SUMMARY | 2023-04-27 17:05 | External Medical Summary | Summary of Care ---
Author Name Unknown Organization [facility] Address [address] [place] [address] Phone [phone] Care Team Providers Care Manager Call Name Role Phone Alida Aceves MD Primary Care Provider [phone] Encounter Details Date Type Department Care Team (Late st Contact Info) Description 04/14/2023 Telephone [facility], [facility] [address] [facility] [place] [address] Nestor Martin PA-C [address] [facility] [address] Allergies No known active allergiesdocumented as of this encounter (statuses as of 04/14/2023) Medications Medication Sig Dispensed Refills Start Date End Date Status Nystatin 435545 UNIT/ML Mouth/Throat Suspension Swish and swallow 5 [...] directed through feeding tube via bolus syringe. 00592 mL 11 01/10/2023 Active Magnesium 400 MG Oral Capsule Take 1 Capsule by mouth in the morning. 0 Active Cefdinir 300 MG Oral Capsule (Omnicef) Take 1 Capsule by mouth in the morning and 1 Capsule before bedtime. 0 Active Incruse Ellipta 62.5 MCG/ACT Inhalation Aerosol Powder Breath Activated (umeclidinium [place]) Inhale 1 Puff by mouth in the [...] as of this encounter (statuses as of 04/14/2023) Active Problems Problem Noted Date Diagnosed Date Protein-calorie malnutrition, severe 03/28/2023 Immunocompromised 03/28/2023 Rhinitis 03/28/2023 Cancer of base of tongue 01/08/2023 Encounter for antineoplastic chemotherapy 2022 Centrilobular emphysema 11/11/2022 Cavitary lung disease 10/15/2022 Pain in limb 04/04/2008 Family history of ischemic heart disease 009 History of tobacco use 03/22/2008 Venous insufficiency 10/14/2002 documented as of this encounter (statuses as of 04/14/2023) Resolved Problems Problem Noted Date Diagnosed Date Resolved Date 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 Thank you for the referral. We'll schedule routine in-person visit. If any additional concerns arise before our visit, please let us know. Nestor Martin PA-C [facility], [facility] [address] [facility] [place] [address] 9:04 AM documented in this encounter Plan of Treatment Upcoming Encounters Date Type Department Care Team (Late st Contact Info) Description 04/17/2023 8:45 AM EST Imaging Radiology [address] [facility] [place] [address] 04/17/2023 9:30 AM EST Telemedicine [facility], [facility] [address] [facility] [place] [address] Andreia Horner PA-C [address] [place] [address] Anabel Hubbard, Community Health Paradichlorobenzene Machine Operator [address] [place] [address] 04/28/2023 9:00 AM EDT Office Visit [facility] [address] [place] [phone] Alida Aceves MD [address] [place] [address] 05/07/2023 10:00 AM EDT Home Visit [facility], [facility] [address] [place] [address] Carissa Thomas, RN [address] [place] [address] 05/29/2023 8:15 AM EDT Office [facility] [address] [facility] [place] [address] Tevin Kenney MD [address] [facility] [place] [address] 07/02/2023 3:20 PM EDT Office Visit Pulmonary Medicine Brea Null [address] [place] [phone] Felipe Hernandez MD [address] [place] [address] Health Maintenance Due Date Last Done Comments [...] 2022 DISCUSS TOBACCO CESSATION (REFER TO SMARTSET #[id number]) 10/16/2023 10/15/2022 O2 ASSESSMENT COMPLETED IN PAST [...] filedocumented as of this encounter Care Teams Manager Call Relationship Specialty Start Date End Date Alida Aceves MD [address] [place] [address] PCP - General Internal Medicine 08/15/22 documented as of this encounter
--- OUTSIDE RECORDS SUMMARY | 2023-04-27 17:05 | External Medical Summary | Summary of Care ---
Author Name Unknown Organization [facility] Address [address] [place] [address] Phone [phone] Care Team Providers Care Filter Filler Name Role Phone Alida Aceves MD Primary Care Provider [phone] Reason for Referral * Evaluate & Treat - Unlimited Visits (Within 10 days (routine)) - Authorized Specialty Diagnoses / Procedures Referred By Contac t Referred To Contact Hospice and Palliative Medicine / Palliative Medicine Diagnoses Cancer of base of tongue (HCC) Protein-calorie malnutrition, severe (HCC) Centrilobular emphysema (HCC) Alida Aceves MD [address] [place] [address] Referral ID Status Reason Start Date Expiration Date Visits Requested Visits Authorized [id number] Authorized Specialty Services Required 04/10/2023 999 999 Question Answer Referral Priority Within 10 days (routine) Where should this appointment be scheduled? [facility] Reason for Referral: Cancer Palliative Medicine To Address: Goals of Care Referral Location Office Reason for Visit * Reason Onset Date Comments Referral 04/08/2023 Encounter Details Date Type Department Care Team (Late st Contact Info) Description 04/08/2023 Telephone Palliative Medicine, [address] 5[address] Floor [place], [place] [phone] Services, Scheduling [address] [place] [address] Referral Allergies No known active allergiesdocumented as of this encounter (statuses as of 04/10/2023) Medications Medication Sig Dispensed Refills Start Date End Date Status Nystatin 934661 UNIT/ML Mouth/Throat Suspension Swish and swallow 5 [...] directed through feeding tube via bolus syringe. 49990 mL 11 01/10/2023 Active Magnesium 400 MG Oral Capsule Take 1 Capsule by mouth in the morning. 0 Active Cefdinir 300 MG Oral Capsule (Omnicef) Take 1 Capsule by mouth in the morning and 1 Capsule before bedtime. 0 Active Incruse Ellipta 62.5 MCG/ACT Inhalation Aerosol Powder Breath Activated (umeclidinium [place]) Inhale 1 Puff by mouth in the [...] 3 days. 10 Patch 0 04/03/2023 Active Hospital, Clinic, or Other Facility Administered [...] Addendum Note - Alida Aceves MD - 04/10/2023 7:44 AM ESTAddended by: ALIDA ACEVES on: 04/10/2023 07:44 AM Modules accepted: Orders * Telephone Encounter - Alida Aceves MD - 04/10/2023 7:44 AM EST Ordered referral * Telephone Encounter - Lissett Gonzales OSA - 04/09/2023 11:09 AM EST Lmom for patient to return call, looking to schedule new palliative visit on 04/21/23 at 9:00am Mita Martin PA-C Phone number provided for [place] at [phone]. YUE Conklin * Telephone Encounter - Gemma Thompson OSA - 04/08/2023 12:46 PM EST [place], After reviewing with Palliative nurse, we believe Palliative [facility] would be a better option for the patient. Please advise. Thank you! documented in this encounter Plan of Treatment Upcoming Encounters Date Type Department Care Team (Late st Contact Info) Description 04/17/2023 8:45 AM EST Imaging Radiology [address] [facility] [place] [address] 04/17/2023 9:30 AM EST Telemedicine [facility], [facility] [address] [place] [address] Andreia Horner PA-C [address] [place] [address] Anabel Hubbard, Community Health Associate Store Director [address] [place] [address] 04/28/2023 9:00 AM EDT Office Visit [facility] [address] [place] [address] Alida Aceves MD [address] [place] [address] 05/07/2023 10:00 AM EDT Home Visit [facility], [facility] [address] [facility] [place] [address] Carissa Thomas RN [address] [facility] [place] [address] 05/29/2023 8:15 AM EDT Office Visit Hematology/Oncology [facility] [place] [address] [place] [phone] Tevin Kenney MD 200 [facility] [place] [address] 07/02/2023 3:20 PM EDT Office Visit Pulmonary Medicine [address] [place] [address] [place] [phone] Felipe Hernandez MD [address] [place] [address] Scheduled Referrals Name Type Priority Associated Diagnoses Orde r Schedule PALLIATIVE CARE REFERRAL OP Referral Within 10 days (routine) Cancer of base of tongue (HCC) Protein-calorie malnutrition, severe (HCC) Centrilobular emphysema (HCC) Ordered: 04/10/2023 Health Maintenance Due Date Last Done Comments [...] Primary Malignant neoplasm of base of tongue Protein-calorie malnutrition, severe (HCC) Other severe protein-calorie malnutrition Centrilobular emphysema (HCC) Other emphysema documented in this encounter Care Teams Filter Filler Relationship Specialty Start Date End Date Alida Aceves MD [address] [place] [facility] [place] [address] PCP - General Internal Medicine 08/15/22 documented as of this encounter
--- OUTSIDE RECORDS SUMMARY | 2023-04-27 17:05 | External Medical Summary | Summary of Care ---
Author Name Unknown Organization [facility] Address [address] [place] [address] Phone [phone] Care Team Providers Care Tile Professional Name Role Phone Alida Aceves MD Primary Care Provider [phone] Reason for Visit * Reason Comments [facility]: Telehealth Encounter Details Date Type Department Care Team (Late st Contact Info) Description 04/17/2023 9:30 AM EST Telemedicine [facility], [place] [address] [place] [address] Andreia Horner PA-C [address] [place] [address] Anabel Hubbard, [facility] [employer] P[employer] [address] [place] [address] Cancer of base of tongue (HCC)*; Gastrostomy status (HCC); 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 30728 mL 11 01/10/2023 Active Magnesium 400 MG Oral Capsule Take 1 Capsule by mouth in the morning. 0 Active Cefdinir 300 MG Oral Capsule (Omnicef) Take 1 Capsule by mouth in the morning and 1 Capsule before bedtime. 0 Active Incruse Ellipta 62.5 MCG/ACT Inhalation Aerosol Powder Breath Activated (umeclidinium [place]) Inhale 1 Puff by mouth in the [...] radiation treatment. (02/13/2023--) ( radiation treatment at [facility]) So far he is received 5 treatments with weekly cisplatin, recently he was admitted at [facility] for pulmonary infection and mucositis treatment was [...] as of this encounter Progress Notes * Andreia Horner PA-C - 04/17/2023 9:30 AM EST Images from the original note were not included. 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 -large primary tumor measuring about 6.2 cm, T4 primary tumor, possible N1, M0. CURRENT TREATMENT: - combined chemotherapy with weekly cisplatin and radiation treatment. (02/13/2023--) ( radiation treatment at [facility]) So far he is received 5 treatments with weekly cisplatin, recently he was admitted at [facility] for pulmonary infection and mucositis treatment was received on 03/13/2023. Scheduled appointments in the next 60 days: Future Appointments-next 60 days Date/Time Provider Specialty Dept Phone 04/17/2023 8:45 AM [facility] Radiology [phone] 04/17/2023 9:30 AM Anabel Hubbard [facility] Health [employer]anger Pipe; Andreia Horner PA-C [facility] [phone] 04/28/2023 9:00 AM (Arrive by 8:45 AM) Alida Aceves MD Family Medicine [phone] 05/07/2023 10:00 AM Carissa Thomas RN [facility] [phone] 05/29/2023 8:15 AM (Arrive by 8:00 AM) Tevin Kenney MD Hematology Oncology [phone] 07/02/2023 3:20 PM Felipe Hernandez MD Pulmonary [phone] 07/03/2023 9:45 AM (Arrive by 9:30 AM) Jas Valladares, Otolaryngology [phone] A total of 0 minutes was spent face to face (via video-based telemedicine if designated as a telemedicine visit) Subjective Subjective Is this a Telemedicine Visit? Yes, Patient location: HOME. I was not in a hospital or clinic location. After connecting through televideo, patient was verified with two unique identifiers. Patient (or authorized legal medical claims representative) was then informed that this was a Telemedicine visit and being conducted confidentially over secure lines. Methods to assure confidentiality were taken. Patient acknowledged consent and understanding of privacy and security of the Telemedicine visit. The patient agreed to participate. Reason For [facility] Visit: Follow-Up Current Concerns: Gm Robins is a 62 year old male seen today for a [facility] provider visit. Today's concerns are: PT NOT SEEN, CANCELLED APPOINTMENT Additional Objective Objective There were no vitals filed for this visit. Last Weights: Wt Readings from Last 3 Encounters: 04/08/23 56.7 kg (125 lb) 03/31/23 56 kg (123 lb 6.4 oz) 03/28/23 55.7 kg (122 lb 12.8 oz) Last BPs: BP Readings from Last 4 Encounters: 04/08/23 95/65 04/07/23 98/60 03/31/23 111/69 03/28/23 120/64 Andreia Horner PA-C 1:05 PM *Communication sent to PCP (via [employer] if [facility]), [facility] Health Care Team members,relevant Specialty Care Physicians* documented in this encounter Miscellaneous Notes * Assessment & Plan Note - Andreia Horner PA-C - 04/16/2023 1:09 PM ESTAssociated Problem(s): Cancer of base of tongue (HCC) DIAGNOSIS: - right lateral tongue squamous cell carcinoma, well to moderately differentiated, biopsy was done in August of 2022 -HPV status unknown. -large primary tumor measuring about 6.2 cm, T4 primary tumor, possible N1, M0. CURRENT TREATMENT: - combined chemotherapy with weekly cisplatin and radiation treatment. (02/13/2023--) ( radiation treatment at [facility]) So far he is received 5 treatments with weekly cisplatin, recently he was admitted at [facility] for pulmonary infection and mucositis treatment was received on 03/13/2023. documented in this encounter Plan of Treatment Upcoming Encounters Date Type Department Care Team (Late st Contact Info) Description 04/28/2023 9:00 AM EDT [facility] [address] [facility] [phone] Alida Aceves MD [address] [facility] [id number] 05/07/2023 10:00 AM EDT Home Visit [facility], [facility] [address] [place] [address] Carissa Thomas, RN [address] [place] [address] 05/29/2023 8:15 AM EDT Office Visit Hematology/Oncology [facility] [address] [facility] [place] [address] Tevin Kenney MD [address] [facility] [place] [address] 07/02/2023 3:20 PM EDT [facility] [place] [address] [place] [facility] [place] [address] Felipe Hernandez MD [address] [place] [address] 07/03/2023 9:45 AM EDT Office Visit Otolaryngology/Head & Neck/Facial Plastic Surgery [address], [place] [phone] Jas Valladares, [address] [place], [place] [id number] Health Maintenance Due Date Last Done Comments [...] Primary Malignant neoplasm of base of tongue Gastrostomy status (HCC) Gastrostomy status 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
--- OUTSIDE RECORDS SUMMARY | 2023-04-27 17:05 | External Medical Summary | Summary of Care ---
Author Name Unknown Organization [facility] Address [address] [place] [address] Phone [phone] Care Team Providers Care Poured Pipe Maker Name Role Phone Alida Aceves MD Primary Care Provider [phone] Reason for Visit * Reason Comments Chemotherapy Cisplatin * Episode Based Medications (Routine) - Authorized Specialty Diagnoses / Procedures Referred By Contac t Referred To Contact Diagnoses Encounter for antineoplastic chemotherapy Cancer of base of tongue (HCC) Procedures NE CISPLATIN 10 MG INJECTION NE FOSAPREPITANT INJECTION NE INJ., APREPITANT, 1 MG Tevin Kenney MD [address] [place] [address] Anc Hem/Onc [facility] [address] [place] [phone] Referral ID Status Reason Start Date Expiration Date V isits Requested Visits Authorized [id number] Authorized 03/13/2023 03/13/2024 999 99 Encounter Details Date Type Department Care Team (Latest Contact Info) Description 04/08/2023 10:00 AM EST Hem/Onc Treatment Hematology/Oncolog y Treatment, [address] [address] Patti, Chair 6 Hem Onc [address] [place] [address] Encounter for antineoplastic chemotherapy*; Cancer of base of tongue (HCC) Allergies No known active allergiesdocumented as of this encounter (statuses as of 04/10/2023) Medications Medication Sig Dispensed Refills Start Date End Date Status Nystatin 433522 UNIT/ML Mouth/Throat Suspension Swish and swallow 5 mL in the morning and 5 mL at noon and 5 mL in the evening and 5 mL before bedtime. For thrush.. 240 mL 1 10/28/2022 Active Mirtazapine 7.5 MG Oral Tablet (Remeron)Indicati ons:Weight loss Take 1 Tablet by mouth at bedtime. 30 Tablet 3 10/30/2022 Active Additional Information Patient not taking.Reported on 01/15/2023 Ondansetron HCl 8 MG Oral Tablet (Zofran)Indicatio ns:Cancer of base of tongue (HCC) Take 1 Tablet by mouth every 8 hours as needed for Nausea. 30 Tablet 3 01/09/2023 Active Prochlorperazine Maleate 10 MG Oral Tablet (Compazine)Indica [...] not taking.Reported on 04/07/2023 Nutren 1.5 Oral LiquidIndications :Cancer of base of tongue (HCC) Administer 250 mL six times daily, as directed through feeding tube via bolus syringe. 88264 mL 11 01/10/2023 Active Magnesium 400 MG Oral Capsule Take 1 Capsule by mouth in the morning. 0 Active Cefdinir 300 MG Oral Capsule (Omnicef) Take 1 Capsule by mouth in the morning and 1 Capsule before bedtime. 0 Active Incruse Ellipta 62.5 MCG/ACT Inhalation Aerosol Powder Breath Activated (umeclidinium [place]) Inhale 1 Puff by mouth in the [...] Breakthrough or Pain, Moderate. 30 mL 0 03/27/2023 Discontinue d(Refill) Hospital, Clinic, or Other Facility [...] Sign Reading Time Taken Comments Blood Pressure 95/65 04/08/2023 11:12 AM EST Pulse 98 04/08/2023 11:12 AM EST Temperature 37.1 C (98.7 F) 04/08/2023 11:[address] Respiratory Rate 20 04/08/2023 11:12 AM EST Oxygen Saturation 94% 04/08/2023 11:12 AM EST Inhaled Oxygen Concentration - - Weight 56.7 kg (125 lb) 04/08/2023 11:12 AM EST Height - - Body Mass Index 16.95 03/03/2023 3:01 PM EST documented in this encounter Nursing Notes * Judi Sanchez RN - 04/08/2023 4:42 PM EST Pt completed treatment without issues. IV removed. Goals: Pt will remain free from injury. Possible barriers to meeting goals: ambulation with IV pole Stability of the patient: Moderately stable - low risk of patient condition declining or worsening Summary regarding today's goals: Met: Pt remained free from injury during treatment today. Discharged in stable condition. CT assisted. * Judi Sanchez RN - 04/08/2023 11:12 AM EST Chair 8. Labs reviewed with Dr. Kenney; okay to proceed with treatment as ordered. PRE-TREATMENT ASSESSMENT: NEURO: denies symptoms CV/RESP: denies symptoms GI/: Pt reports mucositis secondary to RT; pt is using morphine liquid PRN and reports it is effective OTHER: denies any additional symptoms PAIN: 3-4 pain location : mouth PIV established; NSS infusing. Chemotherapy/Immunotherapy agents: CISPLATIN Consent for chemotherapy drug treatment complete, dated, and signed? yes, date - 01/08/23 Treatment lab parameters met? Yes Has treatment weight changed > than 10%? No Treatment preauthorized? Yes VITALS Filed Vitals: 04/08/23 1112 BP: 95/65 Pulse: 98 Resp: 20 Temp: 37.1 C (98.7 F) SpO2: 94% Weight: 56.7 kg (125 lb) Urine protein: N/A Patient education completed for treatment? Yes Blood transfusion consent signed and complete? NA Return appointment scheduled? Yes Patient had provider visit today? No - If no provider visit must complete Pretreatment Assessment Functional Status: Functional status at today's visit: Restricted in physically strenuous activity but ambulatory and able to carry out work on a light orsedentary nature, e.g. light house work, office work The drug name, dose, infusion volume, rate and route of administration, expiration date and time, appearance and physical integrity of the drug and rate set on the pump and sequencing of drug administration (as applicable) were verified by me and second sign-in RN. Patient was assessed for symptoms or adverse side effects during treatment. Safety and Risk for Injury Patient will remain free from injury. Ensure appropriate safety devices are available. Provide and maintain safe environment. documented in this encounter Plan of Treatment Upcoming Encounters Date Type Department Care Team (Late st Contact Info) Description 04/17/2023 8:45 AM EST Imaging Radiology [facility] [address] [facility] [place] [address] 04/17/2023 9:30 AM EST Telemedicine [facility], [facility] [address] [place] [address] Andreia Horner PA-C [address] [place] [address] Anabel Hubbard, [facility] [employer] [address] [place] [address] 04/28/2023 9:00 AM EDT Office Visit [facility] [address] [place] [phone] Alida Aceves MD [address] [place] [address] 05/07/2023 10:00 AM EDT Home Visit [facility], [facility] [address] [facility] [place] [address] Carissa Thomas RN [address] [place] [address] 05/29/2023 8:15 AM EDT Office Visit Hematology/Oncology [facility] [address] [place] [phone] Tevin Kenney MD [address] [place] [address] 07/02/2023 3:20 PM EDT Office Visit Pulmonary Medicine Brea Null [address] [place] [address] Felipe Hernandez MD [address] [place] [address] Health Maintenance Due Date Last Done Comments [...] tongue documented in this encounter Administered Medications Inactive Administered Medications - up to 3 most recent administrations Medication Order MAR Action Action Date Dose Rate Site CISplatin (Platinol) 68 mg in NSS 250 mL infusion 68 mg (rounded from 68.8 mg = 40 mg/m2 1.72 m2 Treatment Plan BSA from Recorded weight), IV Piggyback, Administer over 60 Minutes, PROTECT FROM LIGHT During radiation therapy only., ONCE, 1 dose, On Fri04/08/23 at 1245 Start Infusion 04/08/2023 1:20 PM EST 68 mg 250 mL/hr Fosaprepitant Dimeglumine (Emend) 150 mg, ondansetron (Zofran) 16 mg, dexamethasone sodium phosphate 12 mg in NSS 250 mL Infusion 150 mg, IV Piggyback, ONCE, 1 dose, On Fri04/08/23 at 1215, Administer over 30 Minutes, Give 30 minutes prior to chemotherapy. Infuse over 30 minutes. Start Infusion 04/08/2023 12:24 PM EST 150 mg 500 mL/hr Furosemide (Lasix) inj 20 mg 20 mg, IV Push, ONCE, On Fri04/08/23 at 1145, For 1 dose Given 04/08/2023 2:27 PM EST 20 mg NSS 1,000 mL with magnesium sulfate 1 g, potassium chloride 20 mEq infusion Intravenous, at 500 mL/hr Administer over 2 Hours, Post-cisplatin hydration, ONCE, 1 dose, On Fri04/08/23 at 1345 Start Infusion 04/08/2023 2:27 PM EST 500 mL/hr NSS infusion 1,000 mL, Intravenous, at 500 mL/hr Administer over 2 Hours, Pre-cisplatin hydration, CONTINUOUS, Starting on Fri04/08/23 at 1145, Until Fri04/08/23 at 1344 Start Infusion 04/08/2023 11:10 AM EST 1,000 mL 500 mL/hr documented in this encounter Care Teams Poured Pipe Maker Relationship Specialty Start Date End Date Alida Aceves MD [address] [place] [facility] [place] [address] PCP - General Internal Medicine 08/15/22 documented as of this encounter
--- OUTSIDE RECORDS SUMMARY | 2023-04-27 17:05 | External Medical Summary | Summary of Care ---
Author Name Unknown Organization [facility] Address [address] [place] [address] Phone [phone] Care Team Providers Care Weatherization Specialist Name Role Phone Alida Aceves MD Primary Care Provider [phone] Reason for Referral * Evaluate & Treat - Unlimited Visits (Within 10 days (routine)) - Authorized Specialty Diagnoses / Procedures Referred By Contac t Referred To Contact Hospice and Palliative Medicine / Palliative Medicine Diagnoses Cancer of base of tongue (HCC) Protein-calorie malnutrition, severe (HCC) Centrilobular emphysema (HCC) Alida Aceves MD [address] [place] [address] Referral ID Status Reason Start Date Expiration Date Visits Requested Visits Authorized [id number] Authorized Specialty Services Required 04/10/2023 999 999 Question Answer Referral Priority Within 10 days (routine) Where should this appointment be scheduled? [facility] Reason for Referral: Cancer Palliative Medicine To Address: Goals of Care Referral Location Office Reason for Visit * Reason Onset Date Comments Referral 04/08/2023 Encounter Details Date Type Department Care Team (Late st Contact Info) Description 04/08/2023 Telephone Palliative Medicine, [address] 5[address] Floor [place], [place] [phone] Services, Scheduling [address] [place] [address] Referral Allergies No known active allergiesdocumented as of this encounter (statuses as of 04/10/2023) Medications Medication Sig Dispensed Refills Start Date End Date Status Nystatin 890410 UNIT/ML Mouth/Throat Suspension Swish and swallow 5 [...] directed through feeding tube via bolus syringe. 37113 mL 11 01/10/2023 Active Magnesium 400 MG Oral Capsule Take 1 Capsule by mouth in the morning. 0 Active Cefdinir 300 MG Oral Capsule (Omnicef) Take 1 Capsule by mouth in the morning and 1 Capsule before bedtime. 0 Active Incruse Ellipta 62.5 MCG/ACT Inhalation Aerosol Powder Breath Activated (umeclidinium [place]) Inhale 1 Puff by mouth in the [...] encounter Miscellaneous Notes * Telephone Encounter - Vashti Anderson OSA - 04/10/2023 8:03 AM EST Please call patient as I am unable to schedule with the date, time and provider that you have mentioned in previous message. 04/10/2023 * Addendum Note - Alida Aceves MD [...] new palliative visit on 04/21/23 at 9:00am withNestor Martin PA-C Phone number provided for [facility] at [phone]. YUE Conklin * Telephone Encounter - Gemma Thompson OSA - 04/08/2023 12:46 PM EST [facility], After reviewing with Palliative nurse, we believe Palliative [facility] would be a better option for the patient. Please advise. Thank you! documented in this encounter Plan of Treatment Upcoming Encounters Date Type Department Care Team (Late st Contact Info) Description 04/17/2023 8:45 AM EST Imaging Radiology [address] [place] [address] 04/17/2023 9:30 AM EST Telemedicine [facility], [facility] [address] [place] [address] Andreia Horner PA-C [address] [place] [address] Anabel Hubbard, [facility] [employer] [address] [place] [address] 04/28/2023 9:00 AM EDT Office Visit [facility] [address] [place] [phone] Alida Aceves MD [address] [place] [address] 05/07/2023 10:00 AM EDT Home Visit [facility], [facility] [address] [place] [address] Carissa Thomas, RN [address] [place] [address] 05/29/2023 8:15 AM EDT Office Visit Hematology/Oncology [facility] [place] [address] [place] [address] Tevin Kenney MD [address] [facility] [place] [address] 07/02/2023 3:20 PM EDT Office Visit Pulmonary Medicine [facility] [address] [place] [phone] Felipe Hernandez MD [address] [place] [address] Scheduled Referrals Name Type Priority Associated Diagnoses [...] emphysema documented in this encounter Care Teams Weatherization Specialist Relationship Specialty Start Date End Date Alida Aceves MD [address] [place] [facility] [place] [address] PCP - General Internal Medicine 08/15/22 documented as of this encounter
--- OUTSIDE RECORDS SUMMARY | 2023-04-27 17:05 | External Medical Summary | Summary of Care ---
Author Name Unknown Organization [facility] Address [address] [place] [address] Phone [phone] Care Team Providers Care Rag Cutting Machine Tender Name Role Phone Alida Aceves MD Primary Care Provider [phone] Reason for Referral * Evaluate & Treat - Unlimited Visits (Within 10 days (routine)) - Authorized Specialty Diagnoses / Procedures Referred By Contac t Referred To Contact Hospice and Palliative Medicine / Palliative Medicine Diagnoses Cancer of base of tongue (HCC) Protein-calorie malnutrition, severe (HCC) Centrilobular emphysema (HCC) Alida Aceves MD [address] [place] [address] Referral ID Status Reason Start Date Expiration Date Visits Requested Visits Authorized [id number] Authorized Specialty Services Required 04/10/2023 999 999 Question Answer Referral Priority Within 10 days (routine) Where should this appointment be scheduled? [facility] Reason for Referral: Cancer Palliative Medicine To Address: Goals of Care Referral Location Office Reason for Visit * Reason Onset Date Comments Referral 04/08/2023 Encounter Details Date Type Department Care Team (Late st Contact Info) Description 04/08/2023 Telephone Palliative Medicine, [address] 5[address] Floor [place], [place] [id number] Services, Scheduling [address] [place] [address] Referral Allergies No known active allergiesdocumented as of this encounter (statuses as of 04/11/2023) Medications Medication Sig Dispensed Refills Start Date End Date Status Nystatin 944486 UNIT/ML Mouth/Throat Suspension Swish and swallow 5 [...] directed through feeding tube via bolus syringe. 40932 mL 11 01/10/2023 Active Magnesium 400 MG Oral Capsule Take 1 Capsule by mouth in the morning. 0 Active Cefdinir 300 MG Oral Capsule (Omnicef) Take 1 Capsule by mouth in the morning and 1 Capsule before bedtime. 0 Active Incruse Ellipta 62.5 MCG/ACT Inhalation Aerosol Powder Breath Activated (umeclidinium [place]) Inhale 1 Puff by mouth in the [...] encounter Miscellaneous Notes * Telephone Encounter - Gemma Thompson OSA - 04/11/2023 1:07 PM EST Kaushal, Referral placed is still stating Office and went to OP Palliative. For the question stating Referral Location [facility] Palliative. Thank you * Telephone Encounter - Vashti Anderson OSA [...] withNestor Martin PA-C Phone number provided for [facility] at [phone]. YUE Conklin * Telephone Encounter - Gemma Thompson OSA - 04/08/2023 12:46 PM EST [facility], After reviewing with Palliative nurse, we believe Palliative [facility] would be a better option for the patient. Please advise. Thank you! documented in this encounter Plan of Treatment Upcoming Encounters Date Type Department Care Team (Late st Contact Info) Description 04/17/2023 8:45 AM EST Imaging Radiology [address], [address] [address] 04/17/2023 9:30 AM EST Telemedicine [facility], [facility] [address] [place] [address] Andreia Horner PA-C [address] [place] [address] Anabel Hubabrd, Community [facility] Casing Cooker [address] [place] [address] 04/28/2023 9:00 AM EDT Office Visit [facility] [address] [place] [phone] Alida Aceves MD [address] [place] [address] 05/07/2023 10:00 AM EDT [facility] Visit [facility], [facility] [address] [place] [address] Carissa Thomas, RN [address] [place] [address] 05/29/2023 8:15 AM EDT Office [facility] [address] [facility] [place] [phone] Tevin Kenney MD [address] [facility] [place] [address] 07/02/2023 3:20 PM EDT Office Visit Pulmonary Medicine Brea Null [address] [place] [phone] Felipe Hernandez MD [address] [place] [address] Scheduled Referrals Name Type Priority Associated Diagnoses [...] emphysema documented in this encounter Care Teams Rag Cutting Machine Tender Relationship Specialty Start Date End Date Alida Aceves MD [address] [place] [address] PCP - General Internal Medicine 08/15/22 documented as of this encounter
--- OUTSIDE RECORDS SUMMARY | 2023-04-27 17:05 | External Medical Summary | Summary of Care ---
Author Name Unknown Organization [facility] Address [address] [place] [address] Phone [phone] Care Team Providers Care Vehicle Fare Collector Name Role Phone Alida Aceves MD Primary Care Provider [phone] Reason for Visit * Reason Onset Date Comments [facility]: Maintenance 04/14/2023 Encounter Details Date Type Department Care Team (Late st Contact Info) Description 04/14/2023 Telephone [facility], [facility] [address] [facility] [place] [address] Nestor Martin PA-C [address] [facility] [place] [address] [facility]: Maintenance Allergies No known active allergiesdocumented as of this encounter (statuses as of 04/16/2023) Medications Medication Sig Dispensed Refills Start Date End Date Status Nystatin 697928 UNIT/ML Mouth/Throat Suspension Swish and swallow 5 [...] directed through feeding tube via bolus syringe. 40362 mL 11 01/10/2023 Active Magnesium 400 MG Oral Capsule Take 1 Capsule by mouth in the morning. 0 Active Cefdinir 300 MG Oral Capsule (Omnicef) Take 1 Capsule by mouth in the morning and 1 Capsule before bedtime. 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 YUE Conklin * Telephone Encounter - Nestor Martin PA-C - 04/14/2023 9:04 AM EST [facility] palliative referral received. Thank you for the referral. We'll schedule routine in-person visit. If any additional concerns arise before our visit, please let us know. Nestor Martin PA-C [facility], [facility] 132 [facility] [place] [address] 9:04 AM documented in this encounter Plan of Treatment Upcoming Encounters Date Type Department Care Team (Late st Contact Info) Description 04/17/2023 8:45 AM EST Imaging Radiology [address] 132 [facility] [place] [address] 04/17/2023 9:30 AM EST Telemedicine [facility], [address] [place] [address] Andreia Horner PA-C [address] [place] [address] Anabel Hubbard, Community Health Explosives Truck Driver [address] [place] [address] 04/28/2023 9:00 AM EDT Office Visit [facility] [address] [place] [address] Alida Aceves MD [address] [place] [address] 05/07/2023 10:00 AM EDT Home Visit [facility] at [facility] [address] [place] [address] Carissa Thomas RN [address] [place] [address] 05/29/2023 8:15 AM EDT Office Visit Hematology/Oncology [facility] [address] [place] [phone] Tevin Kenney MD [address] [place] [address] 07/02/2023 3:20 PM EDT Office Visit Pulmonary Medicine Brea Null [address] [place] [phone] Felipe Hernandez MD [address] [place] [address] 07/03/2023 9:45 AM EDT Office Visit Otolaryngology/Head & Neck/Facial Plastic Surgery [address] [place] [address] Jas Valladares DO [address] [place] [address] Health Maintenance Due Date Last Done Comments [...] filedocumented as of this encounter Care Teams Vehicle Fare Collector Relationship Specialty Start Date End Date Alida Aceves MD [address] [place] [address] PCP - General Internal Medicine 08/15/22 documented as of this encounter
--- OUTSIDE RECORDS SUMMARY | 2023-04-27 17:05 | External Medical Summary | Summary of Care ---
Author Name Unknown Organization [facility] Address [address] [place] [address] Phone [phone] Care Team Providers Care Psychiatric Arnp Name Role Phone Alida Aceves MD Primary Care Provider [phone] Reason for Visit * Reason Onset Date Comments Pre Cert/Prior Auth 04/07/2023 Fentanyl pat ch Encounter Details Date Type Department Care Team (Late st Contact Info) Description 04/07/2023 Telephone [facility] [address] [place] [address] Alida Aceves MD [address] [place] [address] Pre Cert/Prior Auth (Fentanyl patch) Allergies No known active allergiesdocumented as of this encounter (statuses as of 04/09/2023) Medications Medication Sig Dispensed Refills Start Date End Date Status Nystatin 876112 UNIT/ML Mouth/Throat Suspension Swish and swallow 5 [...] directed through feeding tube via bolus syringe. 24900 mL 11 01/10/2023 Active Magnesium 400 MG Oral Capsule Take 1 Capsule by mouth in the morning. 0 Active Cefdinir 300 MG Oral Capsule (Omnicef) Take 1 Capsule by mouth in the morning and 1 Capsule before bedtime. 0 Active Incruse Ellipta 62.5 MCG/ACT Inhalation Aerosol Powder Breath Activated (umeclidinium [place]) Inhale 1 Puff by mouth in the [...] as of this encounter (statuses as of 04/09/2023) Active Problems Problem Noted Date Diagnosed Date Protein-calorie malnutrition, severe 03/28/2023 Immunocompromised 03/28/2023 Rhinitis 03/28/2023 Cancer of base of tongue 01/08/2023 Encounter for antineoplastic chemotherapy 2022 Centrilobular emphysema 11/11/2022 Cavitary lung disease 10/15/2022 Pain in limb 04/04/2008 Family history of ischemic heart disease 009 History of tobacco use 03/22/2008 Venous insufficiency 10/14/2002 documented as of this encounter (statuses as of 04/09/2023) Resolved Problems Problem Noted Date Diagnosed Date Resolved Date 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 * Telephone Encounter - Nancy Powell LPN - 04/07/2023 3:27 PM EST Started prior auth with [employer] for Fentanyl 12 mcg EOC # [id number] documented in this encounter Plan of Treatment Upcoming Encounters Date Type Department Care Team (Late st Contact Info) Description 04/10/2023 9:15 AM EST Imaging Radiology [address], [address] [address] 04/17/2023 9:30 AM EST [facility]medicine [facility], [place] [facility] [address] [place] [address] Andreia Horner PA-C [address] [place] [address] Anabel Hubbard, Community Health Solar Sales Energy Advisor [address] [facility] [place] [address] 04/28/2023 9:00 AM EDT Office Visit [address] [phone] Alida Aceves MD [address] [place] [address] 05/07/2023 10:00 AM EDT Home Visit [facility], [facility] [address] [place] [address] Carissa Thomas, RN [address] [place] [address] 05/29/2023 8:15 AM EDT Office Visit Hematology/Oncology [facility] [place] 200 [facility] [place] [phone] Tevin Kenney MD 200 [facility] [place] [address] 07/02/2023 3:20 PM EDT Office Visit Pulmonary Medicine Brea Null [address] [place] [phone] Felipe Hernandez MD [address] [place] [address] Health Maintenance Due Date Last Done Comments [...] filedocumented as of this encounter Care Teams Psychiatric Arnp Relationship Specialty Start Date End Date Alida Aceves MD [address] [place] [address] PCP - General Internal Medicine 08/15/22 documented as of this encounter
--- OUTSIDE RECORDS SUMMARY | 2023-04-27 17:05 | External Medical Summary | Summary of Care ---
Author Name Unknown Organization [facility] Address [address] [place] [address] Phone [phone] Care Team Providers Care Radiation Therapist Name Role Phone Alida Aceves MD Primary Care Provider [phone] Reason for Referral * Evaluate & Treat - Unlimited Visits (Within 10 days (routine)) - Authorized Specialty Diagnoses / Procedures Referred By Contac t Referred To Contact Hospice and Palliative Medicine / Palliative Medicine Diagnoses Cancer of base of tongue (HCC) Protein-calorie malnutrition, severe (HCC) Centrilobular emphysema (HCC) Alida Aceves MD [address] [place] [address] Referral ID Status Reason Start Date Expiration Date Visits Requested Visits Authorized [id number] Authorized Specialty Services Required 04/10/2023 999 999 Question Answer Referral Priority Within 10 days (routine) Where should this appointment be scheduled? [facility] Reason for Referral: Cancer Palliative Medicine To Address: Goals of Care Referral Location Office Reason for Visit * Reason Onset Date Comments Referral 04/08/2023 Encounter Details Date Type Department Care Team (Late st Contact Info) Description 04/08/2023 Telephone Palliative Medicine, [address] 5th Floor [place], [place] [phone] Services, Scheduling [address] [place] [address] Referral Allergies No known active allergiesdocumented as of this encounter (statuses as of 04/11/2023) Medications Medication Sig Dispensed Refills Start Date End Date Status Nystatin 291246 UNIT/ML Mouth/Throat Suspension Swish and swallow 5 [...] directed through feeding tube via bolus syringe. 03887 mL 11 01/10/2023 Active Magnesium 400 MG Oral Capsule Take 1 Capsule by mouth in the morning. 0 Active Cefdinir 300 MG Oral Capsule (Omnicef) Take 1 Capsule by mouth in the morning and 1 Capsule before bedtime. 0 Active Incruse Ellipta 62.5 MCG/ACT Inhalation Aerosol Powder Breath Activated (umeclidinium [place]) Inhale 1 Puff by mouth in the [...] Telephone Encounter - Alida Aceves MD - 04/11/2023 2:24 PM EST Sorry I can't find [facility] for location Where can I put ? * Telephone Encounter - Gemma Thompson OSA - 04/11/2023 1:07 PM EST Kaushal, Referral placed is still stating Office and went to OP Palliative. For the question stating Referral Location state [facility] Palliative. Thank you * Telephone Encounter - [...] PA-C Phone number provided for [facility] at [phone]. YUE Conklin * Telephone Encounter - Gemma Thompson OSA - 04/08/2023 12:46 PM EST Kaushal, After reviewing with Palliative nurse, we believe Palliative [facility] would be a better option for the patient. Please advise. Thank you! documented in this encounter Plan of Treatment Upcoming Encounters Date Type Department Care Team (Late st Contact Info) Description 04/17/2023 8:45 AM EST Imaging Radiology [address], [address] [address] 04/17/2023 9:30 AM EST Telemedicine [facility], [facility] [address] [place] [address] Andreia Horner PA-C [address] [place] [address] Anabel Hubbard, Community Health Correction Officer Head [address] [place] [address] 04/28/2023 9:00 AM EDT Office Visit [address] [address] Alida Aceves MD [address] [place] [facility] [address] 05/07/2023 10:00 AM EDT [facility] 132 [facility] [place] [address] Carissa Thomas RN [address] [facility] [place] [address] 05/29/2023 8:15 AM EDT Office Visit Hematology/Oncology Jose Patti [place] 200 [place] [phone] Tevin Kenney MD 200 [facility] [place] [address] 07/02/2023 3:20 PM EDT Office Visit Pulmonary Medicine Brea Null [address] [place] [address] Felipe Hernandez MD [address] [place] [address] Scheduled Referrals Name Type Priority Associated Diagnoses [...] emphysema documented in this encounter Care Teams Radiation Therapist Relationship Specialty Start Date End Date Alida Aceves MD [address] [place] [address] PCP - General Internal Medicine 08/15/22 documented as of this encounter
--- OUTSIDE RECORDS SUMMARY | 2023-04-27 17:05 | External Medical Summary | Summary of Care ---
Author Name Unknown Organization [facility] Address [address] [place] [address] Phone [phone] Care Team Providers Care Cook Restaurant Name Role Phone Alida Aceves MD Primary Care Provider [phone] Reason for Visit * Reason Onset Date Comments Nutritional Services Documentation 04/17/2023 Encounter Details Date Type Department Care Team (Late st Contact Info) Description 04/17/2023 Telephone [facility] [address] [place] [address] Wanda Dee, RDN [address] [place], [place] [phone] Nutritional Services Documentation Allergies No known active allergiesdocumented as of this encounter (statuses as of 04/17/2023) Medications Medication Sig Dispensed Refills Start Date End Date Status Nystatin 361604 UNIT/ML Mouth/Throat Suspension Swish and swallow 5 [...] directed through feeding tube via bolus syringe. 51623 mL 11 01/10/2023 Active Magnesium 400 MG Oral Capsule Take 1 Capsule by mouth in the morning. 0 Active Cefdinir 300 MG Oral Capsule (Omnicef) Take 1 Capsule by mouth in the morning and 1 Capsule before bedtime. 0 Active Incruse Ellipta 62.5 MCG/ACT Inhalation Aerosol Powder Breath Activated (umeclidinium [place]) Inhale 1 Puff by mouth in the [...] encounter Miscellaneous Notes * Telephone Encounter - Wanda Dee RDN - 04/17/2023 11:22 AM EST Good Day, Patient with enteral feeding, non-verbal. Out patient BHAVIKN trying to get in touch with him to schedule follow up, but no response thus far. Any chance we can schedule telemed visit with [facility] JOHN and CARLOS in home? Carissa, do you know of any preferred time that Gm prefers his appointments if we needto do a drop in? Teressa, any issues with enteral feeding from your appointment today? Thank you! RADAMES Lamas, JOHN, LDN Clinical Dietitian [facility] 04/17/2023 11:24 AM documented in this encounter Plan of Treatment Upcoming Encounters Date Type Department Care Team (Late st Contact Info) Description 04/28/2023 9:00 AM EDT Office Visit [facility] [address] [place] [address] Alida Aceves MD [address] [place] [address] 05/07/2023 10:00 AM EDT [facility], [facility] 132 [place] [address] Carissa Thomas RN 132 [place] [address] 05/29/2023 8:15 AM EDT Office Visit Hematology/Oncology Ced[facility] Armstrong [place] 200 [facility] [place] [phone] Tevin Kenney MD 200 [place] [address] 07/02/2023 3:20 PM EDT Office Visit Pulmonary Medicine Brea Null [address] [facility] [place] [address] Felipe Hernandez MD [address] [place] [facility] [place] [address] 07/03/2023 9:45 AM EDT Office Visit Otolaryngology/Head & Neck/Facial Plastic Surgery [address] [place] [address] Jas Valladares DO [address] [place] [address] Health Maintenance Due Date Last Done Comments [...] filedocumented as of this encounter Care Teams Cook Restaurant Relationship Specialty Start Date End Date Alida Aceves MD [address] [place] [address] PCP - General Internal Medicine 08/15/22 documented as of this encounter
--- OUTSIDE RECORDS SUMMARY | 2023-04-27 17:05 | External Medical Summary | Summary of Care ---
Author Name Unknown Organization [facility] Address [address] [place] [address] Phone [phone] Care Team Providers Care Tents Assembler Name Role Phone Alida Aceves MD Primary Care Provider [phone] Reason for Visit * Reason Onset Date Comments Home Tube Feeding 04/15/2023 Encounter Details Date Type Department Care Team (Late st Contact Info) Description 04/15/2023 10:30 AM EST Scheduled Telephone [facility] [address] [place] [address] Jaqui Edouard RDN [address] [facility] [address] Allergies No known active allergiesdocumented as of this encounter (statuses as of 04/15/2023) Medications Medication Sig Dispensed Refills Start Date End Date Status Nystatin 995767 UNIT/ML Mouth/Throat Suspension Swish and swallow 5 [...] directed through feeding tube via bolus syringe. 44893 mL 11 01/10/2023 Active Magnesium 400 MG Oral Capsule Take 1 Capsule by mouth in the morning. 0 Active Cefdinir 300 MG Oral Capsule (Omnicef) Take 1 Capsule by mouth in the morning and 1 Capsule before bedtime. 0 Active Incruse Ellipta 62.5 MCG/ACT Inhalation Aerosol Powder Breath Activated (umeclidinium [place]) Inhale 1 Puff by mouth in the [...] as of this encounter (statuses as of 04/15/2023) Active Problems Problem Noted Date Diagnosed Date Protein-calorie malnutrition, severe 03/28/2023 Immunocompromised 03/28/2023 Rhinitis 03/28/2023 Cancer of base of tongue 01/08/2023 Encounter for antineoplastic chemotherapy 2022 Centrilobular emphysema 11/11/2022 Cavitary lung disease 10/15/2022 Pain in limb 04/04/2008 Family history of ischemic heart disease 009 History of tobacco use 03/22/2008 Venous insufficiency 10/14/2002 documented as of this encounter (statuses as of 04/15/2023) Resolved Problems Problem Noted Date Diagnosed Date Resolved Date 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 Left message on pt's voice mail. Also sent a [employer] message regarding the same. Jaqui Edouard RDN, Clinical Dietitian II, [facility] [place] Clinical Nutrition Services [facility] [address] [place] [address] Available via [employer] Portal documented in this encounter Plan of Treatment Upcoming Encounters Date Type Department Care Team (Late st Contact Info) Description 04/17/2023 8:45 AM EST Imaging Radiology [facility] 1st Floor, [place] [address] [place] [address] 04/17/2023 9:30 AM EST Telemedicine [facility], [place] [address] [facility] [place] [address] Andreia Horner PA-C [address] [place] [address] Anabel Hubbard, Community Health Credit Union Teller [address] [place] [address] 04/28/2023 9:00 AM EDT Office Visit [facility] [address] [place] [phone] Alida Aceves MD [address] [place], [place] [address] 05/07/2023 10:00 AM EDT [facility], [facility] [address] [place] [address] Carissa Thomas, RN [address] [place] [address] 05/29/2023 8:15 AM EDT Office Visit Hematology/Oncology Cedrick Armstrong [place] 200 [facility] [place] [address] Tevin Kenney MD 200 [facility] [place] [address] 07/02/2023 3:20 PM EDT Office Visit Pulmonary Medicine [place] [address] [place] [phone] Felipe Hernandez MD [address] [facility] [address] 07/03/2023 9:45 AM EDT Office Visit Otolaryngology/Head & Neck/Facial Plastic Surgery [address] [place], [place] [phone] Jas Valladares DO [address] [place], [place] [phone] Health Maintenance Due Date Last Done Comments [...] filedocumented as of this encounter Care Teams Tents Assembler Relationship Specialty Start Date End Date Alida Aceves MD [address] [place] [address] PCP - General Internal Medicine 08/15/22 documented as of this encounter
--- OUTSIDE RECORDS SUMMARY | 2023-04-27 17:05 | External Medical Summary | Summary of Care ---
Author Name Unknown Organization [facility] Address [address] [place] [address] Phone [phone] Care Team Providers Care Special Needs Babysitter Name Role Phone Alida Aceves MD Primary Care Provider [phone] Reason for Visit * Reason Onset Date Comments Referral 04/08/2023 Encounter Details Date Type Department Care Team (Late st Contact Info) Description 04/08/2023 Telephone Palliative Medicine, [facility] [address] [facility] 5th [place] [address] Services, Scheduling [address] [place] [address] Referral Allergies No known active allergiesdocumented as of this encounter (statuses as of 04/09/2023) Medications Medication Sig Dispensed Refills Start Date End Date Status Nystatin 021063 UNIT/ML Mouth/Throat Suspension Swish and swallow 5 [...] directed through feeding tube via bolus syringe. 18575 mL 11 01/10/2023 Active Magnesium 400 MG Oral Capsule Take 1 Capsule by mouth in the morning. 0 Active Cefdinir 300 MG Oral Capsule (Omnicef) Take 1 Capsule by mouth in the morning and 1 Capsule before bedtime. 0 Active Incruse Ellipta 62.5 MCG/ACT Inhalation Aerosol Powder Breath Activated (umeclidinium [address]) Inhale 1 Puff by mouth in the [...] Notes * Telephone Encounter - Lissett Gonzales YUE - 04/09/2023 11:09 AM EST Lmom for patient to return call, looking to schedule new palliative visit on 04/21/23 at 9:00am Mita Martin PA-C Phone number provided for [facility] at [phone]. YUE Conklin * Telephone Encounter - Gemma Thompson OSA - 04/08/2023 12:46 PM EST Kaushal, After reviewing with Palliative nurse, we believe Palliative [facility] would be a better option for the patient. Please advise. Thank you! documented in this encounter Plan of Treatment Upcoming Encounters Date Type Department Care Team (Late st Contact Info) Description 04/10/2023 9:15 AM EST Imaging Radiology [address] [place] [address] 04/17/2023 9:30 AM EST Telemedicine [facility], [facility] [address] [place] [address] Andreia Horner PA-C [address] [place] [address] Anabel Hubbard, Community Health Camp Recreation Specialist [address] [place] [address] 04/28/2023 9:00 AM EDT Office Visit [facility] [address] [place] [phone] Alida Aceves MD [address] [place] [address] 05/07/2023 10:00 AM EDT [facility] Visit [facility] [place], [facility] 132 [place] [address] Carissa Thomas, RN [address] [place] [address] 05/29/2023 8:15 AM EDT Office Visit Hematology/Oncology [facility] [place] [place] [facility] [place] [phone] Tevin Kenney MD 200 [facility] [place] [address] 07/02/2023 3:20 PM EDT Office Visit Pulmonary Medicine Brea Null [address] [place] [address] Feilpe Hernandez MD [address] [place] [address] Health Maintenance Due Date Last Done Comments [...] filedocumented as of this encounter Care Teams Special Needs Babysitter Relationship Specialty Start Date End Date Alida Aceves MD [address] [place] [address] PCP - General Internal Medicine 08/15/22 documented as of this encounter
--- OUTSIDE RECORDS SUMMARY | 2023-04-27 17:05 | External Medical Summary | Summary of Care ---
Author Name Unknown Organization [facility] Address [address] [place] [address] Phone [phone] Care Team Providers Care Metal Fabricator Apprentice Name Role Phone Alida Aceves MD Primary Care Provider [phone] Reason for Visit * Reason Comments Chemotherapy Cisplatin * Episode Based Medications (Routine) - Authorized Specialty Diagnoses / Procedures Referred By Contac t Referred To Contact Diagnoses Encounter for antineoplastic chemotherapy Cancer of base of tongue (HCC) Procedures [place] CISPLATIN 10 MG INJECTION [place] FOSAPREPITANT INJECTION [place] INJ., APREPITANT, 1 MG Tevin Kenney MD 200 [facility] [place] [address] Anc Hem/Onc [facility] Patti [address] [place] [phone] Referral ID Status Reason Start Date Expiration Date V isits Requested Visits Authorized [id number] Authorized 03/13/2023 03/13/2024 999 [id number] Encounter Details Date Type Department Care Team (Latest Contact Info) Description 04/08/2023 10:00 AM EST Hem/Onc Treatment Hematology/Oncolog y Treatment, [address] [address] Patti, Chair 6 Hem Onc [address] [place] [address] Encounter for antineoplastic chemotherapy*; Cancer of base of tongue (HCC) Allergies No known active allergiesdocumented as of this encounter (statuses as of 04/14/2023) Medications Medication Sig Dispensed Refills Start Date End Date Status Nystatin 273543 UNIT/ML Mouth/Throat Suspension Swish and swallow 5 [...] directed through feeding tube via bolus syringe. 10246 mL 11 01/10/2023 Active Magnesium 400 MG Oral Capsule Take 1 Capsule by mouth in the morning. 0 Active Cefdinir 300 MG Oral Capsule (Omnicef) Take 1 Capsule by mouth in the morning and 1 Capsule before bedtime. 0 Active Incruse Ellipta 62.5 MCG/ACT Inhalation Aerosol Powder Breath Activated (umeclidinium [place]) Inhale 1 Puff by mouth in the [...] Description 04/17/2023 8:45 AM EST Imaging Radiology [facility] 1st [facility] 132 [place] [address] 04/17/2023 9:30 AM EST Telemedicine [facility], [facility] [address] [place] [address] Andreia Horner PA-C 240[address] [place] [address] Anabel Hubbard, Community Health Lock Technician [address] [place] [address] 04/28/2023 9:00 AM EDT Office Visit [facility] [address] [place] [phone] Alida Aceves MD 819 [place] [address] 05/07/2023 10:00 AM EDT [facility] Visit [facility], [facility] 132 [place] [address] Carissa Thomas RN 132 [place] [address] 05/29/2023 8:15 AM EDT Office Visit Hematology/Oncology [facility] 200 [facility] [place] [phone] Tevin Kenney MD 200 [facility] [place] [address] 07/02/2023 3:20 PM EDT Office Visit Pulmonary Medicine Brea Null [address] [place] [place] [phone] Felipe Hernandez MD [address] [place] [address] Health Maintenance Due Date Last Done Comments [...] mL/hr documented in this encounter Care Teams Metal Fabricator Apprentice Relationship Specialty Start Date End Date Alida Aceves MD [address] [facility] [place] [address] PCP - General Internal Medicine 08/15/22 documented as of this encounter
--- OUTSIDE RECORDS SUMMARY | 2023-04-27 17:06 | External Medical Summary | Summary of Care ---
Author Name Unknown Organization [facility] Address [address] [place] [address] Phone [phone] Care Team Providers Care Microbiology Lab Manager Name Role Phone Alida Aceves MD Primary Care Provider [phone] Reason for Visit * Reason Comments Chemotherapy C1/D8 - Cisplatin * Episode Based Medications (Routine) - Authorized Specialty Diagnoses / Procedures Referred By Contac t Referred To Contact Diagnoses Encounter for antineoplastic chemotherapy Cancer of base of tongue (HCC) Procedures [place] CISPLATIN 10 MG INJECTION [place] FOSAPREPITANT INJECTION [place] INJ., APREPITANT, 1 MG Tevin Kenney MD 200 [facility] [place] [address] Anc Hem/Onc [address] [address] Referral ID Status Reason Start Date Expiration Date V isits Requested Visits Authorized [id number] Authorized 03/13/2023 03/13/2024 999 99 Encounter Details Date Type Department Care Team (Latest Contact Info) Description 02/20/2023 8:45 AM EST Hem/Onc Treatment Hematology/Oncolog y Treatment, [address] [address] Patti, Chair 1 Hem Onc [address] [place] [address] Encounter for antineoplastic chemotherapy*; Cancer of base of tongue (HCC) Allergies No known active allergiesdocumented as of this encounter (statuses as of 04/09/2023) Medications Medication Sig Dispensed Refills Start Date End Date Status Nystatin 412696 UNIT/ML Mouth/Throat Suspension Swish and swallow 5 [...] 01/15/2023 Prochlorperazine Maleate 10 MG Oral Tablet (Compazine)Indicati [...] Tablet 5 01/09/2023 Active Nutren 1.5 Oral LiquidIndications:C ancer of base of tongue (HCC) Administer 250 mL six times daily, as directed through feeding tube via bolus syringe. 37380 mL 11 01/10/2023 Active Additional Information Patient not taking.Reported on 01/15/2023 Hospital, Clinic, or Other Facility Administered Medication [...] Sign Reading Time Taken Comments Blood Pressure 124/83 02/20/2023 9:19 AM EST Pulse 98 02/20/2023 9:19 AM EST Temperature 37.1 C (98.8 F) 02/20/2023 9:19 AM ES T Respiratory Rate 18 02/20/2023 9:19 AM EST Oxygen Saturation 95% 02/20/2023 9:19 AM EST Inhaled Oxygen Concentration - - Weight 53.5 kg (118 lb) 02/20/2023 9:19 AM EST Height - - Body Mass Index 16 02/12/2023 8:43 AM EST documented in this encounter Nursing Notes * Lisette Fay RN - 02/20/2023 3:28 PM EST Chair 8. IV inserted. Patient overall feeling well since last treatment. Patient denies any major issues but did say he had some ringing in his ears that started a couple days ago, ringing is intermittent per pt. Dr. Kenney made aware of the ringing in patient's ears -- will continue current tx at this time, no changes to be made, will continue to monitor. Chemo agents Cisplatin Appetite PEG tube, using appropriately Nausea/Vomiting no Diarrhea no Constipation no Mucositis no Fatigue no Bleeding no Infection no Rash no Numbness tingling no Pain does have pain, pt said rad/onc ordered something for this and he needs to go pick it up today Radiation yes, after chemo today ABN Labs WNL for tx Alt in Tx: N/A Return in 1 week Safety and Risk for Injury Patient will remain free from injury. Ensure appropriate safety devices are available. Provide and maintain safe environment. Goals: Patient will remain free from injury. Possible barriers to meeting goals: ambulating with IV pole Stability of the patient: Moderately stable - low risk of patient condition declining or worsening Summary regarding today's goals: Met: pt remained free of harm today Functional status at today's visit: Restricted in [...] adverse side effects during treatment. Patient tolerated treatment well without any acute issues or problems. Patient left facility in stable condition and denied any further needs. documented in this encounter Plan of Treatment Upcoming Encounters Date Type Department Care Team (Late st Contact Info) Description 04/10/2023 9:15 AM EST Imaging Radiology [address], [address] [place] [address] 04/17/2023 9:30 AM EST Telemedicine [facility], [facility] [address] [place] [address] Andreia Horner PA-C 240[address] [facility] [place] [address] Anabel Hubbard, Community Health Vp Compliance [address] [place] [address] 04/28/2023 9:00 AM EDT Office Visit [facility] [address] [place] [phone] Alida Aceves MD [address] [place] [address] 05/07/2023 10:00 AM EDT Home Visit [facility], [facility] 132 [place] [address] Carissa Thomas, RN 132 [place] [address] 05/29/2023 8:15 AM EDT Office Visit Hematology/Oncology [facility] 200 [place] [phone] Tevin Kenney MD 200 [place] [address] 07/02/2023 3:20 PM EDT Office Visit Pulmonary Medicine Brea Null [address] [phone] Felipe Hernandez MD [address] [address] Health Maintenance Due Date Last Done Comments [...] radiation therapy only., ONCE, 1 dose, On Liz 02/20/23 at 1045 Start Infusion 02/20/2023 11:16 AM EST 68 mg 250 mL/hr Fosaprepitant Dimeglumine (Emend) 150 mg, ondansetron (Zofran) 16 mg, dexamethasone sodium phosphate 12 mg in NSS 250 mL Infusion 150 mg, IV Piggyback, ONCE, 1 dose, On Liz 02/20/23 at 1015, Administer over 30 Minutes, Give 30 minutes prior to chemotherapy. Infuse over 30 minutes. Start Infusion 02/20/2023 10:14 AM EST 150 mg 500 mL/hr Furosemide (Lasix) inj 20 mg 20 mg, IV Push, ONCE, On Liz 02/20/23 at 0945, For 1 dose Given 02/20/2023 12:22 PM EST 20 mg NSS 1,000 mL with magnesium sulfate 1 g, potassium chloride 20 mEq infusion Intravenous, at 500 mL/hr Administer over 2 Hours, Post-cisplatin hydration, ONCE, 1 dose, On Liz 02/20/23 at 1145 Given 02/20/2023 12:23 PM EST 500 mL/hr NSS infusion 1,000 mL, Intravenous, at 500 mL/hr Administer over 2 Hours, Pre-cisplatin hydration, CONTINUOUS, Starting on Liz 02/20/23 at 0945, Until Liz 02/20/23 at 1144 Start Infusion 02/20/2023 9:08 AM EST 1,000 mL 500 mL/hr documented in this encounter Care Teams Microbiology Lab Manager Relationship Specialty Start Date End Date Alida Aceves MD [address] [place] [address] PCP - General Internal Medicine 08/15/22 documented as of this encounter
--- OUTSIDE RECORDS SUMMARY | 2023-04-27 17:06 | External Medical Summary | Summary of Care ---
Author Name Unknown Organization [facility] Address [address] [place] [address] Phone [phone] Care Team Providers Care Bowling Alley Attendant Name Role Phone Alida Aceves MD Primary Care Provider [phone] Reason for Visit * Reason Comments Chemotherapy C1/D8 - Cisplatin * Episode Based Medications (Routine) - Authorized Specialty Diagnoses / Procedures Referred By Contac t Referred To Contact Diagnoses Encounter for antineoplastic chemotherapy Cancer of base of tongue (HCC) Procedures [place] CISPLATIN 10 MG INJECTION [place] FOSAPREPITANT INJECTION [place] INJ., APREPITANT, 1 MG Tevin Kenney MD 200 [place] [address] Anc Hem/Onc [address] [address] Referral ID Status Reason Start Date Expiration Date V isits Requested Visits Authorized [id number] Authorized 03/13/2023 03/13/2024 999 99 Encounter Details Date Type Department Care Team (Latest Contact Info) Description 02/20/2023 8:45 AM EST Hem/Onc Treatment Hematology/Oncolog y Treatment, [address] [address] Patti, Chair [address] Hem On[address] [place] [address] Encounter for antineoplastic chemotherapy*; Cancer of base of tongue (HCC) Allergies No known active allergiesdocumented as of this encounter (statuses as of 04/09/2023) Medications Medication Sig Dispensed Refills Start Date End Date Status Nystatin 740448 UNIT/ML Mouth/Throat Suspension Swish and swallow 5 [...] directed through feeding tube via bolus syringe. 18551 mL 11 01/10/2023 Active Additional Information Patient [...] Description 04/10/2023 9:15 AM EST Imaging Radiology [address], [address] [place] [address] 04/17/2023 9:30 AM EST Telemedicine [facility], [facility] [address] [place] [address] Andreia Horner PA-C [address] [facility] [place] [address] Anabel Hubbard, Community Health [place] Construction Supervisor [address] [place] [address] 04/28/2023 9:00 AM EDT Office Visit [facility] [address] [place] [phone] Alida Aceves MD [address] [place] [address] 05/07/2023 10:00 AM EDT Home Visit [facility], [facility] 132 [place] [address] Carissa Thomas, RN 132 [place] [address] 05/29/2023 8:15 AM EDT Office Visit Hematology/Oncology [facility] 200 [facility] [place] [phone] Tevin Kenney MD 200 [facility] [place] [address] 07/02/2023 3:20 PM EDT Office Visit Pulmonary Medicine Brea Null [address] [phone] Felipe Hernandez MD [address] [place] [address] Health Maintenance Due Date Last Done Comments [...] mL/hr documented in this encounter Care Teams Bowling Alley Attendant Relationship Specialty Start Date End Date Alida Aceves MD [address] [place] [facility] [place] [address] PCP - General Internal Medicine 08/15/22 documented as of this encounter
--- OUTSIDE RECORDS SUMMARY | 2023-04-27 17:06 | External Medical Summary | Summary of Care ---
Author Name Unknown Organization [facility] Address [address] [place] [address] Phone [phone] Care Team Providers Care Commercial Hvac Service Technician Name Role Phone Alida Aceves MD Primary Care Provider [phone] Reason for Visit * Reason Comments Outpatient Testing Encounter Details Date Type Department Care Team (Late st Contact Info) Description 04/08/2023 9:10 AM EST Laboratory Laboratory [facility] [address] [place] [phone] [facility] [address] [place] [address] Cancer of base of tongue (HCC) Allergies No known active allergiesdocumented as of this encounter (statuses as of 04/08/2023) Medications Medication Sig Dispensed Refills Start Date End Date Status Nystatin 505733 UNIT/ML Mouth/Throat Suspension Swish and swallow 5 [...] directed through feeding tube via bolus syringe. 25001 mL 11 01/10/2023 Active Magnesium 400 MG Oral Capsule Take 1 Capsule by mouth in the morning. 0 Active Cefdinir 300 MG Oral Capsule (Omnicef) Take 1 Capsule by mouth in the morning and 1 Capsule before bedtime. 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 30 mL 0 03/27/2023 Active Incruse Ellipta 62.5 MCG/ACT Inhalation Aerosol Powder Breath Activated (umeclidinium [place]) Inhale 1 Puff by mouth in the [...] as of this encounter (statuses as of 04/08/2023) Active Problems Problem Noted Date Diagnosed Date Protein-calorie malnutrition, severe 03/28/2023 Immunocompromised 03/28/2023 Rhinitis 03/28/2023 Cancer of base of tongue 01/08/2023 Encounter for antineoplastic chemotherapy 2022 Centrilobular emphysema 11/11/2022 Cavitary lung disease 10/15/2022 Pain in limb 04/04/2008 Family history of ischemic heart disease 009 History of tobacco use 03/22/2008 Venous insufficiency 10/14/2002 documented as of this encounter (statuses as of 04/08/2023) Resolved Problems Problem Noted Date Diagnosed Date Resolved Date 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 9 10/15/2022 Routine medical exam 03/22/2008 024 documented as of this encounter (statuses as of 04/08/2023) Immunizations Name Administration Dates Next Due Pneumococcal [...] 04/10/2023 9:15 AM EST Imaging Radiology [address] 132 [facility] [place] [address] 04/17/2023 9:30 AM EST Telemedicine [facility], [facility] [address] [place] [address] Andreia Horner PA-C 240[address] [place] [address] Anabel Hubbard, Community Health Web Content Writer [address] [place] [address] 04/28/2023 9:00 AM EDT Office Visit [facility] [address] [place] [phone] Alida Aceves MD [address] [place] [address] 05/07/2023 10:00 AM EDT [facility] Visit [facility], [facility] [place] [address] Carissa Thomas, RN [address] [place] [address] 05/29/2023 8:15 AM EDT Office Visit Hematology/Oncology [facility] [place] [address] [place] [phone] Tevin Kenney MD [address] [place] [address] 07/02/2023 3:20 PM EDT Office Visit Pulmonary Medicine Brea Null [address] [phone] eFlipe Hernandez MD [address] [address] Pending Results Name Type Priority Associated Diagnoses Date /Time CBC WITH WBC DIFFERENTIAL Lab STAT Cancer of base of tongue (HCC) 04/08/2023 10:03 AM EST COMPREHENSIVE METABOLIC PANEL Lab STAT Cancer of base of tongue (HCC) 04/08/2023 10:03 AM EST MAGNESIUM Lab STAT Cancer of base of tongue (HCC) 04/08/2023 10:03 AM EST CBC Lab STAT Cancer of base of tongue (HCC) 04/08/2023 10:03 AM EST DIFFERENTIAL, AUTOMATED Lab STAT Cancer of base of tongue (HCC) 04/08/2023 10:03 AM EST Health Maintenance Due Date Last [...] tongue documented in this encounter Care Teams Commercial Hvac Service Technician Relationship Specialty Start Date End Date Alida Aceves MD [address] [place] [address] PCP - General Internal Medicine 08/15/22 documented as of this encounter
--- OUTSIDE RECORDS SUMMARY | 2023-04-27 17:06 | External Medical Summary | Summary of Care ---
Author Name Unknown Organization [facility] Address [address] [place] [address] Phone [phone] Care Team Providers Care Hr Leader Name Role Phone Alida Aceves MD Primary Care Provider [phone] Reason for Visit * Reason Comments Chemotherapy C1/D8 - Cisplatin * Episode Based Medications (Routine) - Authorized Specialty Diagnoses / Procedures Referred By Contac t Referred To Contact Diagnoses Encounter for antineoplastic chemotherapy Cancer of base of tongue (HCC) Procedures [place] CISPLATIN 10 MG INJECTION [place] FOSAPREPITANT INJECTION [place] INJ., APREPITANT, 1 MG Tevin Kenney MD 200 [facility] [place] [address] Anc Hem/Onc [address] [address] Referral ID Status Reason Start Date Expiration Date V isits Requested Visits Authorized [id number] Authorized 03/13/2023 03/13/2024 999 99 Encounter Details Date Type Department Care Team (Latest Contact Info) Description 02/20/2023 8:45 AM EST Hem/Onc Treatment Hematology/Oncolog y Treatment, [address] [address] Patti, Chair 1 Hem Onc [address] [place] [address] Encounter for antineoplastic chemotherapy*; Cancer of base of tongue (HCC) Allergies No known active allergiesdocumented as of this encounter (statuses as of 04/08/2023) Medications Medication Sig Dispensed Refills Start Date End Date Status Nystatin 358816 UNIT/ML Mouth/Throat Suspension Swish and swallow 5 [...] directed through feeding tube via bolus syringe. 65907 mL 11 01/10/2023 Active Additional Information Patient [...] Description 04/08/2023 9:10 AM EST Laboratory Laboratory [facility] Patti [place] [address] [place] [phone] Patti, Lab Scenery [address] [place] [address] 04/08/2023 10:00 AM EST Hem/Onc Treatment Hematology/Oncology Treatment, [place] [address] [place] [phone] Patti, Chair 6 Hem Onc Scenery [address] [place] [address] 04/10/2023 9:15 AM EST Imaging Radiology [address], [place] 132 [facility] [place] [address] 04/17/2023 9:30 AM EST Telemedicine [facility], [facility] [address] [place] [address] Andreia Horner PA-C [address] [place] [address] Anabel Hubbard, Community Health Oven Worker [address] [place] [address] 04/28/2023 9:00 AM EDT Office Visit [facility] [address] [place] [phone] Alida Aceves MD [address] [place] [address] 05/07/2023 10:00 AM EDT [facility] Visit [facility], [facility] 132 [facility] [place] [address] Carissa Thomas RN 132 [facility] [place] [address] 05/29/2023 8:15 AM EDT [facility] [place] [address] [place] [phone] Tevin Kenney MD 200 [facility] [place] [address] 07/02/2023 3:20 PM EDT Office Visit Pulmonary Medicine Brea Null [address] [phone] Felipe Hernandez MD [address] [place] [address] [address] Health Maintenance Due Date Last Done Comments [...] mL/hr documented in this encounter Care Teams Hr Leader Relationship Specialty Start Date End Date Alida Aceves MD [address] [facility] [place] [address] PCP - General Internal Medicine 08/15/22 documented as of this encounter
--- OUTSIDE RECORDS SUMMARY | 2023-04-27 17:06 | External Medical Summary | Summary of Care ---
Author Name Unknown Organization [facility] Address [address] [place] [address] Phone [phone] Care Team Providers Care Community Representative Name Role Phone Alida Aceves MD Primary Care Provider [phone] Reason for Visit * Reason Comments Chemotherapy C1/D8 - Cisplatin * Episode Based Medications (Routine) - Authorized Specialty Diagnoses / Procedures Referred By Contac t Referred To Contact Diagnoses Encounter for antineoplastic chemotherapy Cancer of base of tongue (HCC) Procedures [place] CISPLATIN 10 MG INJECTION [place] FOSAPREPITANT INJECTION [place] INJ., APREPITANT, 1 MG Tevin Kenney MD 200 [place] [address] Anc Hem/Onc [address] [address] Referral ID Status Reason Start Date Expiration Date V isits Requested Visits Authorized [id number] Authorized 03/13/2023 03/13/2024 999 99 Encounter Details Date Type Department Care Team (Latest Contact Info) Description 02/20/2023 8:45 AM EST Hem/Onc Treatment Hematology/Oncolog y Treatment, [address] [address] Patti, Chair 1 Hem On[address] [place] [address] Encounter for antineoplastic chemotherapy*; Cancer of base of tongue (HCC) Allergies No known active allergiesdocumented as of this encounter (statuses as of 04/09/2023) Medications Medication Sig Dispensed Refills Start Date End Date Status Nystatin 891699 UNIT/ML Mouth/Throat Suspension Swish and swallow 5 [...] directed through feeding tube via bolus syringe. 07685 mL 11 01/10/2023 Active Additional Information Patient [...] Description 04/10/2023 9:15 AM EST Imaging Radiology [address], [address] [place] [address] 04/17/2023 9:30 AM EST Telemedicine [facility], [facility] [address] [place] [address] Andreia Horner PA-C [address] [facility] [place] [address] Anabel Hubbard, Community Health Audio Visual Design Engineer [address] [place] [address] 04/28/2023 9:00 AM EDT Office Visit [facility] [address] [place] [phone] Alida Aceves MD [address] [place] [address] 05/07/2023 10:00 AM EDT [facility], [facility] 132 [place] [address] Carissa Thomas, RN 132 [place] [address] 05/29/2023 8:15 AM EDT Office Visit Hematology/Oncology [facility] 200 [place] [phone] Tevin Kenney MD 200 [place] [address] 07/02/2023 3:20 PM EDT Office Visit Pulmonary Medicine Brea Null [address] [place] [address] [phone] Felipe Hernandez MD [address] [place] [address] Health Maintenance Due Date Last Done Comments [...] mL/hr documented in this encounter Care Teams Community Representative Relationship Specialty Start Date End Date Alida Aceves MD [address] [place] [facility] [place] [address] PCP - General Internal Medicine 08/15/22 documented as of this encounter
--- OUTSIDE RECORDS SUMMARY | 2023-04-27 17:06 | External Medical Summary | Summary of Care ---
Author Name Unknown Organization [facility] Address [address] [place] [address] Phone [phone] Care Team Providers Care Printing Film Stripper Name Role Phone Alida Aceves MD Primary Care Provider [phone] Reason for Visit * Reason Comments Chemotherapy Cisplatin * Episode Based Medications (Routine) - Authorized Specialty Diagnoses / Procedures Referred By Contac t Referred To Contact Diagnoses Encounter for antineoplastic chemotherapy Cancer of base of tongue (HCC) Procedures [place] CISPLATIN 10 MG INJECTION MO FOSAPREPITANT INJECTION [place] INJ., APREPITANT, 1 MG Tevin eKnney MD 200 [facility] [place] [address] Anc Hem/Onc [address] [address] Referral ID Status Reason Start Date Expiration Date V isits Requested Visits Authorized [id number] Authorized 03/13/2023 03/13/2024 999 [id number] Encounter Details Date Type Department Care Team (Latest Contact Info) Description 04/08/2023 10:00 AM EST Hem/Onc Treatment Hematology/Oncolog y Treatment, [address] [address] Patti, Chair 6 Hem Onc [address] [place] [address] Encounter for antineoplastic chemotherapy*; Cancer of base of tongue (HCC) Allergies No known active allergiesdocumented as of this encounter (statuses as of 04/08/2023) Medications Medication Sig Dispensed Refills Start Date End Date Status Nystatin 039839 UNIT/ML Mouth/Throat Suspension Swish and swallow 5 [...] directed through feeding tube via bolus syringe. 04373 mL 11 01/10/2023 Active Magnesium 400 MG Oral Capsule Take 1 Capsule by mouth in the morning. 0 Active Cefdinir 300 MG Oral Capsule (Omnicef) Take 1 Capsule by mouth in the morning and 1 Capsule before bedtime. 0 Active Incruse Ellipta 62.5 MCG/ACT Inhalation Aerosol Powder Breath Activated (umeclidinium [place]) Inhale 1 Puff by mouth in the [...] Description 04/10/2023 9:15 AM EST Imaging Radiology [facility] 1st [facility] 132 [facility] [place] [address] 04/17/2023 9:30 AM EST Telemedicine [facility], [facility] [address] [place] [address] Andreia Horner PA-C [address] [place] [address] Anabel Hubbard, Community Health Labor Gang Supervisor [address] [place] [address] 04/28/2023 9:00 AM EDT [facility] Visit [facility] [address] [place] [phone] Alida Aceves MD [address] [place] [address] 05/07/2023 10:00 AM EDT [facility] Visit [facility], [facility] 132 [facility] [place] [address] Cairssa Thomas RN 132 [place] [address] 05/29/2023 8:15 AM EDT Office Visit Hematology/Oncology [facility] 200 [facility] [place] [phone] Tevin Kenney MD 200 [facility] [place] [address] 07/02/2023 3:20 PM EDT Office Visit Pulmonary Medicine Brea Null [address] [phone] Felipe Hernandez MD [address] [address] Health Maintenance Due Date Last Done Comments [...] ONCE PRN Other, Hypersensitivity Reaction, Starting on Fri04/08/23 at 1111, Until Fri04/09/23 at 1110, For 24 hours EPINEPHrine 1 MG/ML inj 0.3 mg 0.3 mg, Intramuscular, ONCE PRN Other, Hypersensitivity Reaction or Anaphylaxis, Starting on Fri04/08/23 at 1111, Until Fri04/09/23 at 1110, For 24 hours hEParin 100 UNIT/ML Lock Flush inj 500 Units 500 Units (5 mL), IV Lock, PRN Other, IV Flush, Starting on Fri04/08/23 at 1111, Until Fri04/09/23 at 1110, For 24 hours, Do not flush if lock, PICC, or central line not in place; IV infusing or unable to flush. Hydrocortisone Sod Suc (PF) (Solu-Cortef) inj 100 mg 100 mg, IV Push, ONCE PRN Other, Hypersensitivity Reaction, Starting on Fri04/08/23 at 1111, Until Fri04/09/23 at 1110, For 24 hours LORAzepam (Ativan) tab 0.5 mg 0.5 mg, Oral, ONCE PRN Anxiety, Nausea, Starting on Fri04/08/23 at 1215, Until Discontinued oxygen GAS Inhalation, OXYGEN, First dose on Fri04/08/23 at 1145, Until Discontinued, Device/Managed by: Low Flow Device, [...] Push, PRN Other, IV Flush, Starting on Fri04/08/23 at 1111, Until Fri04/09/23 at 1110, For 24 hours, Do not flush if [...] mL/hr documented in this encounter Care Teams Printing Film Stripper Relationship Specialty Start Date End Date Alida Aceves MD [address] [place] [address] PCP - General Internal Medicine 08/15/22 documented as of this encounter
--- OUTSIDE RECORDS SUMMARY | 2023-04-27 17:06 | External Medical Summary | Summary of Care ---
Author Name Unknown Organization [facility] Address [address] [place] [address] Phone [phone] Care Team Providers Care Employment Consultant Name Role Phone Alida Aceves MD Primary Care Provider [phone] Reason for Visit * Reason Comments Chemotherapy C1/D8 - Cisplatin * Episode Based Medications (Routine) - Authorized Specialty Diagnoses / Procedures Referred By Contac t Referred To Contact Diagnoses Encounter for antineoplastic chemotherapy Cancer of base of tongue (HCC) Procedures [place] CISPLATIN 10 MG INJECTION CO FOSAPREPITANT INJECTION CO INJ., APREPITANT, 1 MG Tevin Kenney MD 200 [facility] [place] [address] Anc Hem/Onc [address] [address] Referral ID Status Reason Start Date Expiration Date V isits Requested Visits Authorized [id number] Authorized 03/13/2023 03/13/2024 999 [id number] Encounter Details Date Type Department Care Team (Latest Contact Info) Description 02/20/2023 8:45 AM EST Hem/Onc Treatment Hematology/Oncolog y Treatment, [address] [address] Patti, Chair 1 Hem On[address] [place] [address] Encounter for antineoplastic chemotherapy*; Cancer of base of tongue (HCC) Allergies No known active allergiesdocumented as of this encounter (statuses as of 04/08/2023) Medications Medication Sig Dispensed Refills Start Date End Date Status Nystatin 181681 UNIT/ML Mouth/Throat Suspension Swish and swallow 5 [...] directed through feeding tube via bolus syringe. 09199 mL 11 01/10/2023 Active Additional Information Patient [...] 9:10 AM EST Laboratory Laboratory Scene Patti [place] [address] [place] [phone] Patti, Lab Scenery [address] [place] [address] 04/08/2023 10:00 AM EST Hem/Onc Treatment Hematology/Oncology Treatment, [place] [address] [place] [phone] Patti, Chair 6 Hem Onc Scenery [address] [place] [address] 04/10/2023 9:15 AM EST Imaging Radiology [address], [place] 132 [facility] [place] [address] 04/17/2023 9:30 AM EST Telemedicine [facility], [facility] 240[address] [place] [address] Andreia Horner PA-C [address] [place] [address] Anabel Hubbard, Community Health Sustainable Development Policy Analyst [address] [place] [address] 04/28/2023 9:00 AM EDT Office Visit [facility] [address] [place] [phone] Alida Aceves MD [address] [place] [address] 05/07/2023 10:00 AM EDT Home Visit [facility], [facility] 132 [facility] [place] [address] Carissa Thomas RN 132 [facility] [place] [address] 05/29/2023 8:15 AM EDT Office Visit Hematology/Oncology [facility] Patti [place] [address] [place] [address] Tevin Kenney MD 200 [place] [address] 07/02/2023 3:20 PM EDT Office Visit Pulmonary Medicine Brea Null [address] [phone] Felipe Hernandez MD [address] [address] Health Maintenance Due Date Last Done Comments [...] mL/hr documented in this encounter Care Teams Employment Consultant Relationship Specialty Start Date End Date Alida Aceves MD [address] [facility] [place] [address] PCP - General Internal Medicine 08/15/22 documented as of this encounter
--- OUTSIDE RECORDS SUMMARY | 2023-04-27 17:06 | External Medical Summary | Summary of Care ---
Author Name Unknown Organization [facility] Address [address] [place] [address] Phone [phone] Care Team Providers Care Cofferdam Construction Supervisor Name Role Phone Alida Aceves MD Primary Care Provider [phone] Reason for Visit * Reason Comments Chemotherapy C1/D8 - Cisplatin * Episode Based Medications (Routine) - Authorized Specialty Diagnoses / Procedures Referred By Contac t Referred To Contact Diagnoses Encounter for antineoplastic chemotherapy Cancer of base of tongue (HCC) Procedures [place] CISPLATIN 10 MG INJECTION [place] FOSAPREPITANT INJECTION [place] INJ., APREPITANT, 1 MG Tevin Kenney MD 200 [facility] [place] [address] Anc Hem/Onc [address] [address] Referral ID Status Reason Start Date Expiration Date V isits Requested Visits Authorized [id number] Authorized 03/13/2023 03/13/2024 999 [id number] Encounter Details Date Type Department Care Team (Latest Contact Info) Description 02/20/2023 8:45 AM EST Hem/Onc Treatment Hematology/Oncolog y Treatment, [address] [address] Patti, Chair 1 Hem On[address] [place] [address] Encounter for antineoplastic chemotherapy*; Cancer of base of tongue (HCC) Allergies No known active allergiesdocumented as of this encounter (statuses as of 04/09/2023) Medications Medication Sig Dispensed Refills Start Date End Date Status Nystatin 441493 UNIT/ML Mouth/Throat Suspension Swish and swallow 5 [...] directed through feeding tube via bolus syringe. 11162 mL 11 01/10/2023 Active Additional Information Patient [...] Description 04/10/2023 9:15 AM EST Imaging Radiology [address], [address] [place] [address] 04/17/2023 9:30 AM EST Telemedicine [facility], [facility] [address] [place] [address] Andreia Horner PA-C 2407 [facility] [place] [address] Anabel Hubbard, Community Health Sales Support Rep [address] [place] [address] 04/28/2023 9:00 AM EDT Office Visit Located [facility] [address] [place] [phone] Alida Aceves MD [address] [place] [address] 05/07/2023 10:00 AM EDT Home Visit [facility], [facility] 132 [place] [address] Carissa Thomas, RN 132 [place] [address] 05/29/2023 8:15 AM EDT Office Visit Hematology/Oncology [facility] 200 [facility] [phone] Tevin Kenney MD 200 [facility] [place] [address] 07/02/2023 3:20 PM EDT Office Visit Pulmonary Medicine Brea Null [address] [phone] Felipe Hernandez MD [address] [address] Health Maintenance Due Date Last Done Comments [...] mL/hr documented in this encounter Care Teams Cofferdam Construction Supervisor Relationship Specialty Start Date End Date Alida Aceves MD [address] [place] [facility] [place] [address] PCP - General Internal Medicine 08/15/22 documented as of this encounter
--- OUTSIDE RECORDS SUMMARY | 2023-04-27 17:06 | External Medical Summary | Summary of Care ---
Author Name Unknown Organization [facility] Address [address] [place] [address] Phone [phone] Care Team Providers Care Welding Process Specialist Name Role Phone Alida Aceves MD Primary Care Provider [phone] Reason for Visit * Reason Comments Chemotherapy C1/D8 - Cisplatin * Episode Based Medications (Routine) - Authorized Specialty Diagnoses / Procedures Referred By Contac t Referred To Contact Diagnoses Encounter for antineoplastic chemotherapy Cancer of base of tongue (HCC) Procedures [place] CISPLATIN 10 MG INJECTION NM FOSAPREPITANT INJECTION NM INJ., APREPITANT, 1 MG Tevin Kenney MD 200 [facility] [place] [address] Anc Hem/Onc [address] [address] Referral ID Status Reason Start Date Expiration Date V isits Requested Visits Authorized [id number] Authorized 03/13/2023 03/13/2024 999 [id number] Encounter Details Date Type Department Care Team (Latest Contact Info) Description 02/20/2023 8:45 AM EST Hem/Onc Treatment Hematology/Oncolog y Treatment, [address] [address] Patti, Chair 1 Hem On[address] [place] [address] Encounter for antineoplastic chemotherapy*; Cancer of base of tongue (HCC) Allergies No known active allergiesdocumented as of this encounter (statuses as of 04/08/2023) Medications Medication Sig Dispensed Refills Start Date End Date Status Nystatin 196193 UNIT/ML Mouth/Throat Suspension Swish and swallow 5 [...] directed through feeding tube via bolus syringe. 20017 mL 11 01/10/2023 Active Additional Information Patient [...] 9:10 AM EST Laboratory Laboratory Scene Patti [place] [address] [place] [phone] Patti, Lab Scenery [address] [place] [address] 04/08/2023 10:00 AM EST Hem/Onc Treatment Hematology/Oncology Treatment, [place] [address] [place] [phone] Patti, Chair 6 Hem Onc Scenery [address] [place] [address] 04/10/2023 9:15 AM EST Imaging Radiology [address], [place] 132 [facility] [place] [address] 04/17/2023 9:30 AM EST Telemedicine [facility], [facility] [address] [place] [address] Andreia Horner PA-C [address] [place] [address] Anabel Hubbard, Community Health Amusement Equipment Operator [address] [place] [address] 04/28/2023 9:00 AM EDT Office Visit [facility] [address] [place] [phone] Alida Aceves MD [address] [place] [address] 05/07/2023 10:00 AM EDT Home Visit [facility], [facility] 132 [facility] [place] [address] Carissa Thomas RN 132 [facility] [place] [address] 05/29/2023 8:15 AM EDT Office Visit Hematology/Oncology [facility] Patti [place] [address] [place] [phone] Tevin Kenney MD 200 [place] [address] 07/02/2023 3:20 PM EDT Office Visit Pulmonary Medicine Brea Null [address] [phone] Felipe Hernandez MD [address] [address] Health Maintenance Due Date Last Done Comments [...] mL/hr documented in this encounter Care Teams Welding Process Specialist Relationship Specialty Start Date End Date Alida Aceves MD [address] [facility] [place] [address] PCP - General Internal Medicine 08/15/22 documented as of this encounter
--- OUTSIDE RECORDS SUMMARY | 2023-04-27 17:06 | External Medical Summary | Summary of Care ---
Author Name Unknown Organization [facility] Address [address] [place] [address] Phone [phone] Care Team Providers Care Exchange Specialist Name Role Phone Alida Aceves MD Primary Care Provider [phone] Encounter Details Date Type Department Care Team (Late st Contact Info) Description 04/08/2023 Orders Only Hematology/Oncology [facility] Patti [place] 200 [place] [address] Tevin Kenney MD 200 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 20684 mL 11 01/10/2023 Active Magnesium 400 MG Oral Capsule Take 1 Capsule by mouth in the morning. 0 Active Cefdinir 300 MG Oral Capsule (Omnicef) Take 1 Capsule by mouth in the morning and 1 Capsule before bedtime. 0 Active Incruse Ellipta 62.5 MCG/ACT Inhalation Aerosol Powder Breath Activated (umeclidinium [place]) Inhale 1 Puff by mouth in the [...] Pain, Moderate. 30 mL 0 04/08/2023 Active Morphine Sulfate (Concentrate) 100 MG/5ML Oral [...] as of this encounter Progress Notes * Tevin Kenney MD - 04/08/2023 4:34 PM EST E-prescribed liquid morphine as he requested. documented in this encounter Plan of Treatment Upcoming Encounters Date Type Department Care Team (Late st Contact Info) Description 04/10/2023 9:15 AM EST Imaging Radiology [facility] 1st [facility], [place] [address] [facility] [place] [address] 04/17/2023 9:30 AM EST Telemedicine [facility], [place] [facility] [address] [place] [address] Andreia Horner PA-C [address] [place] [address] Anabel Hubbard, Community Health Trumpet Player [address] [place] [address] 04/28/2023 9:00 AM EDT Office Visit [place] [address] [place] [phone] Alida Aceves MD [address] [place] [address] 05/07/2023 10:00 AM EDT Home Visit [facility], [facility] [address] [place] [address] Carissa Thomas RN [address] [place] [address] 05/29/2023 8:15 AM EDT Office [facility] 200 [facility] [place] [address] Tevin Kenney MD 200 [facility] [place] [address] 07/02/2023 3:20 PM EDT Office Visit Pulmonary Medicine [place] [address] [place] [address] [place] [phone] Felipe Hernandez MD 217 [facility] [place] [address] Health Maintenance Due Date Last Done Comments [...] (HCC) Malignant neoplasm of base of tongue 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
--- OUTSIDE RECORDS SUMMARY | 2023-04-27 17:06 | External Medical Summary | Summary of Care ---
Author Name Unknown Organization [facility] Address [address] [place] [address] Phone [phone] Care Team Providers Care Network Contractor Name Role Phone Alida Aceves MD Primary Care Provider [phone] Reason for Visit * Reason Onset Date Comments Medication Refill 04/08/2023 Morphine Encounter Details Date Type Department Care Team (Late st Contact Info) Description 04/08/2023 Telephone Hematology/Oncology Treatment, [address] [phone] Tevin Kenney MD [address] [place] [address] Medication Refill (Morphine) Allergies No known active allergiesdocumented as of this encounter (statuses as of 04/09/2023) Medications Medication Sig Dispensed Refills Start Date End Date Status Nystatin 988208 UNIT/ML Mouth/Throat Suspension Swish and swallow 5 [...] directed through feeding tube via bolus syringe. 41108 mL 11 01/10/2023 Active Magnesium 400 MG Oral Capsule Take 1 Capsule by mouth in the morning. 0 Active Cefdinir 300 MG Oral Capsule (Omnicef) Take 1 Capsule by mouth in the morning and 1 Capsule before bedtime. 0 Active Incruse Ellipta 62.5 MCG/ACT Inhalation Aerosol Powder Breath Activated (umeclidinium [place]) Inhale 1 Puff by mouth in the [...] encounter Miscellaneous Notes * Telephone Encounter - Tevin Kenney MD - 04/09/2023 6:09 AM EST Already done. * Telephone Encounter - Judi Sanchez RN - 04/08/2023 4:47 PM EST Pt is requesting refill of Morphine oral solution. Please send to [facility]. documented in this encounter Plan of Treatment Upcoming Encounters Date Type Department Care Team (Late st Contact Info) Description 04/10/2023 9:15 AM EST Imaging Radiology [facility] 1st [facility] [place] 132 [facility] [place] [address] 04/17/2023 9:30 AM EST Telemedicine [facility] [place] [address] [place] [address] Andreia Horner PA-C [address] [place] [address] Anabel Hubbard, Community Health Char Belt Operator [address] [place] [address] 04/28/2023 9:00 AM EDT Office Visit [facility] [address] [place] [phone] Alida Aceves MD [address] [place] [address] 05/07/2023 10:00 AM EDT [facility], [facility] [address] [place] [address] Carissa Thomas, RN [address] [place] [address] 05/29/2023 8:15 AM EDT Office Visit Hematology/Oncology [facility] [place] 200 [facility] [place] [phone] Tevin Kenney MD 200 [facility] [place] [address] 07/02/2023 3:20 PM EDT Office Visit Pulmonary Medicine Brea Null [address] [place] [phone] Felipe Hernandez MD [address] [place] [address] Health Maintenance Due Date Last Done Comments [...] 2022 DISCUSS TOBACCO CESSATION (REFER TO SMARTSET #[id number]) 10/16/2023 10/15/2022 O2 ASSESSMENT COMPLETED IN PAST [...] neck documented in this encounter Care Teams Network Contractor Relationship Specialty Start Date End Date Alida Aceves MD [address] [place] [address] PCP - General Internal Medicine 08/15/22 documented as of this encounter
--- OUTSIDE RECORDS SUMMARY | 2023-04-27 17:06 | External Medical Summary | Summary of Care ---
Author Name Unknown Organization [facility] Address [address] [place] [address] Phone [phone] Care Team Providers Care Cementing Machine Operator Name Role Phone Alida Aceves MD Primary Care Provider [phone] Reason for Visit * Reason Comments Chemotherapy C1/D8 - Cisplatin * Episode Based Medications (Routine) - Authorized Specialty Diagnoses / Procedures Referred By Contac t Referred To Contact Diagnoses Encounter for antineoplastic chemotherapy Cancer of base of tongue (HCC) Procedures [place] CISPLATIN 10 MG INJECTION [place] FOSAPREPITANT INJECTION [place] INJ., APREPITANT, 1 MG Tevin Kenney MD 200 [facility] [place] [address] Anc Hem/Onc [address] [address] Referral ID Status Reason Start Date Expiration Date V isits Requested Visits Authorized [id number] Authorized 03/13/2023 03/13/2024 999 99 Encounter Details Date Type Department Care Team (Latest Contact Info) Description 02/20/2023 8:45 AM EST Hem/Onc Treatment Hematology/Oncolog y Treatment, [address] [address] Patti, Chair 1 Hem On[address] [place] [address] Encounter for antineoplastic chemotherapy*; Cancer of base of tongue (HCC) Allergies No known active allergiesdocumented as of this encounter (statuses as of 04/09/2023) Medications Medication Sig Dispensed Refills Start Date End Date Status Nystatin 590349 UNIT/ML Mouth/Throat Suspension Swish and swallow 5 [...] directed through feeding tube via bolus syringe. 55344 mL 11 01/10/2023 Active Additional Information Patient [...] Description 04/10/2023 9:15 AM EST Imaging Radiology [address], [address] [place] [address] 04/17/2023 9:30 AM EST Telemedicine [facility], [facility] [address] [place] [address] Andreia Horner PA-C [address] [facility] [place] [address] Anabel Hubbard, Community Health Wafer Production Worker [address] [place] [address] 04/28/2023 9:00 AM EDT Office Visit [facility] [address] [place] [phone] Alida Aceves MD [address] [place] [address] 05/07/2023 10:00 AM EDT [facility], [facility] 132 [place] [address] Carissa Thomas, RN 132 [place] [address] 05/29/2023 8:15 AM EDT Office Visit Hematology/Oncology [facility] 200 [place] [phone] Tevin Kenney MD 200 [place] [address] 07/02/2023 3:20 PM EDT Office Visit Pulmonary Medicine Brea Null [address] [place] [phone] Felipe Hernandez MD [address] [place] [address] Health Maintenance Due Date Last Done Comments [...] mL/hr documented in this encounter Care Teams Cementing Machine Operator Relationship Specialty Start Date End Date Alida Aceves MD [address] [place] [facility] [place] [address] PCP - General Internal Medicine 08/15/22 documented as of this encounter
--- OUTSIDE RECORDS SUMMARY | 2023-04-27 17:06 | External Medical Summary | Summary of Care ---
Author Name Unknown Organization [facility] Address [address] [place] [address] Phone [phone] Care Team Providers Care Grease And Tallow Pumper Name Role Phone Alida Aceves MD Primary Care Provider [phone] Reason for Visit * Reason Comments Chemotherapy C1/D8 - Cisplatin * Episode Based Medications (Routine) - Authorized Specialty Diagnoses / Procedures Referred By Contac t Referred To Contact Diagnoses Encounter for antineoplastic chemotherapy Cancer of base of tongue (HCC) Procedures RI CISPLATIN 10 MG INJECTION RI FOSAPREPITANT INJECTION RI INJ., APREPITANT, 1 MG Tevin Kenney MD 200 [place] [address] Anc Hem/Onc [address] [address] Referral ID Status Reason Start Date Expiration Date V isits Requested Visits Authorized [id number] Authorized 03/13/2023 03/13/2024 [id number] Encounter Details Date Type Department Care Team (Latest Contact Info) Description 02/20/2023 8:45 AM EST Hem/Onc Treatment Hematology/Oncolog y Treatment, [address] [address] Patti, Chair 1 Hem Onc [address] [place] [address] Encounter for antineoplastic chemotherapy*; Cancer of base of tongue (HCC) Allergies No known active allergiesdocumented as of this encounter (statuses as of 04/08/2023) Medications Medication Sig Dispensed Refills Start Date End Date Status Nystatin 274279 UNIT/ML Mouth/Throat Suspension Swish and swallow 5 [...] directed through feeding tube via bolus syringe. 97863 mL 11 01/10/2023 Active Additional Information Patient [...] 9:10 AM EST Laboratory Laboratory Scene Patti [place] [address] [place] [phone] Patti, Lab Scenery [address] [place] [address] 04/08/2023 10:00 AM EST Hem/Onc Treatment Hematology/Oncology Treatment, [place] [address] [place] [phone] Patti, Chair 6 Hem Onc Scenery [address] [place] [address] 04/10/2023 9:15 AM EST Imaging Radiology [address], [place] 132 [facility] [place] [address] 04/17/2023 9:30 AM EST Telemedicine [facility], [facility] 240[address] [place] [address] Andreia Horner PA-C 240[address] [place] [address] Anabel Hubbard, Community Health Varying Exceptionalities Teacher [address] [place] [address] 04/28/2023 9:00 AM EDT Office Visit [facility] [address] [place] [phone] Alida Aceves MD [address] [place] [address] 05/07/2023 10:00 AM EDT Home Visit [facility], [facility] 132 [facility] [place] [address] Carissa Thomas RN 132 [facility] [place] [address] 05/29/2023 8:15 AM EDT Office Visit [facility] Patti [place] [address] [place] [phone] Tevin Kenney MD 200 [place] [address] 07/02/2023 3:20 PM EDT Office Visit Pulmonary Medicine Brea Null [address] [place] [phone] Felipe Hernandez MD [address] [place] [address] Health Maintenance Due Date Last Done Comments [...] mL/hr documented in this encounter Care Teams Grease And Tallow Pumper Relationship Specialty Start Date End Date Alida Aceves MD [address] [facility] [place] [address] PCP - General Internal Medicine 08/15/22 documented as of this encounter
--- OUTSIDE RECORDS SUMMARY | 2023-04-27 17:06 | External Medical Summary | Summary of Care ---
Author Name Unknown Organization [facility] Address [address] [place] [address] Phone [phone] Care Team Providers Care Gravity Meter Operator Name Role Phone Alida Aceves MD Primary Care Provider [phone] Reason for Visit * Reason Comments Chemotherapy C1/D8 - Cisplatin * Episode Based Medications (Routine) - Authorized Specialty Diagnoses / Procedures Referred By Contac t Referred To Contact Diagnoses Encounter for antineoplastic chemotherapy Cancer of base of tongue (HCC) Procedures MA CISPLATIN 10 MG INJECTION MA FOSAPREPITANT INJECTION MA INJ., APREPITANT, 1 MG Tevin Keneny MD 200 [facility] [place] [address] Anc Hem/Onc [address] [address] Referral ID Status Reason Start Date Expiration Date V isits Requested Visits Authorized [id number] Authorized 03/13/2023 03/13/2024 999 [id number] Encounter Details Date Type Department Care Team (Latest Contact Info) Description 02/20/2023 8:45 AM EST Hem/Onc Treatment Hematology/Oncolog y Treatment, [address] [address] Patti, Chair 1 Hem Onc [address] [place] [address] Encounter for antineoplastic chemotherapy*; Cancer of base of tongue (HCC) Allergies No known active allergiesdocumented as of this encounter (statuses as of 04/09/2023) Medications Medication Sig Dispensed Refills Start Date End Date Status Nystatin 729772 UNIT/ML Mouth/Throat Suspension Swish and swallow 5 [...] directed through feeding tube via bolus syringe. 97375 mL 11 01/10/2023 Active Additional Information Patient [...] 04/10/2023 9:15 AM EST Imaging Radiology [address], [address] [place] [address] 04/17/2023 9:30 AM EST Telemedicine [facility], [facility] [address] [place] [address] Andreia Horner PA-C 2407 [facility] [place] [address] Anabel Hubbard, Community Health Shellfish Grower [address] [place] [address] 04/28/2023 9:00 AM EDT Office Visit [facility] [address] [place] [phone] Alida Aceves MD [address] [place] [address] 05/07/2023 10:00 AM EDT Home Visit [facility], [facility] 132 [place] [address] Carissa Thomas, RN 132 [place] [address] 05/29/2023 8:15 AM EDT Office Visit Hematology/Oncology [facility] 200 [facility] [place] [phone] Tevin Kenney MD 200 [facility] [place] [address] 07/02/2023 3:20 PM EDT Office Visit Pulmonary Medicine Brea Null [address] [place] [phone] Felipe Hernandez MD [address] [place] [address] Health Maintenance Due Date Last Done Comments [...] mL/hr documented in this encounter Care Teams Gravity Meter Operator Relationship Specialty Start Date End Date Alida Aceves MD [address] [place] [facility] [place] [address] PCP - General Internal Medicine 08/15/22 documented as of this encounter
--- OUTSIDE RECORDS SUMMARY | 2023-04-27 17:06 | External Medical Summary | Summary of Care ---
Author Name Unknown Organization [facility] Address [address] [place] [address] Phone [phone] Care Team Providers Care Bindery Machine Operator Name Role Phone Alida Aceves MD Primary Care Provider [phone] Reason for Visit * Reason Comments Chemotherapy C1/D8 - Cisplatin * Episode Based Medications (Routine) - Authorized Specialty Diagnoses / Procedures Referred By Contac t Referred To Contact Diagnoses Encounter for antineoplastic chemotherapy Cancer of base of tongue (HCC) Procedures PA CISPLATIN 10 MG INJECTION PA FOSAPREPITANT INJECTION PA INJ., APREPITANT, 1 MG Tevin Kenney MD 200 [place] [address] Anc Hem/Onc [address] [address] Referral ID Status Reason Start Date Expiration Date V isits Requested Visits Authorized [id number] Authorized 03/13/2023 03/13/2024 999 [id number] Encounter Details Date Type Department Care Team (Latest Contact Info) Description 02/20/2023 8:45 AM EST Hem/Onc Treatment Hematology/Oncolog y Treatment, [address] [address] Patti, Chair 1 Hem Onc [address] [place] [address] Encounter for antineoplastic chemotherapy*; Cancer of base of tongue (HCC) Allergies No known active allergiesdocumented as of this encounter (statuses as of 04/08/2023) Medications Medication Sig Dispensed Refills Start Date End Date Status Nystatin 767183 UNIT/ML Mouth/Throat Suspension Swish and swallow 5 [...] directed through feeding tube via bolus syringe. 89041 mL 11 01/10/2023 Active Additional Information Patient [...] 9:10 AM EST Laboratory Laboratory Scene Patti [place] [address] [place] [phone] Patti, Lab Scenery [address] [place] [address] 04/08/2023 10:00 AM EST Hem/Onc Treatment Hematology/Oncology Treatment, [place] [address] [place] [address] Patti, Chair 6 Hem Onc Scenery [address] [place] [address] 04/10/2023 9:15 AM EST Imaging Radiology [address], [place] 132 [facility] [place] [address] 04/17/2023 9:30 AM EST Telemedicine [facility], [facility] 240[address] [place] [address] Andreia Horner PA-C 240[address] [place] [address] Anabel Hubbard, Community Health World History Teacher [address] [place] [address] 04/28/2023 9:00 AM EDT Office Visit [facility] [address] [place] [phone] Alida Aceves MD [address] [place] [address] 05/07/2023 10:00 AM EDT Home Visit [facility], [facility] 132 [facility] [place] [address] Carissa Thomas RN 132 [facility] [place] [address] 05/29/2023 8:15 AM EDT Office Visit Hematology/Oncology [facility] Patti [place] [address] [place] [phone] Tevin Kenney MD 200 [place] [address] 07/02/2023 3:20 PM EDT Office Visit Pulmonary Medicine Brea Null [address] [place] [phone] Felipe Hernandez MD [address] [place] [address] Health Maintenance Due Date Last Done Comments [...] mL/hr documented in this encounter Care Teams Bindery Machine Operator Relationship Specialty Start Date End Date Alida Aceves MD [address] [facility] [place] [address] PCP - General Internal Medicine 08/15/22 documented as of this encounter
--- OUTSIDE RECORDS SUMMARY | 2023-04-27 17:06 | External Medical Summary | Summary of Care ---
Author Name Unknown Organization [facility] Address [address] [place] [address] Phone [phone] Care Team Providers Care Lamp Inspector Name Role Phone Alida Aceves MD Primary Care Provider [phone] Reason for Visit * Reason Comments Chemotherapy C1/D8 - Cisplatin * Episode Based Medications (Routine) - Authorized Specialty Diagnoses / Procedures Referred By Contac t Referred To Contact Diagnoses Encounter for antineoplastic chemotherapy Cancer of base of tongue (HCC) Procedures ME CISPLATIN 10 MG INJECTION ME FOSAPREPITANT INJECTION ME INJ., APREPITANT, 1 MG Tevin Kenney MD 200 [place] [address] Anc Hem/Onc [address] [address] Referral ID Status Reason Start Date Expiration Date V isits Requested Visits Authorized [id number] Authorized 03/13/2023 03/13/2024 999 [id number] Encounter Details Date Type Department Care Team (Latest Contact Info) Description 02/20/2023 8:45 AM EST Hem/Onc Treatment Hematology/Oncolog y Treatment, [address] [address] Patti, Chair 1 Hem Onc [address] [place] [address] Encounter for antineoplastic chemotherapy*; Cancer of base of tongue (HCC) Allergies No known active allergiesdocumented as of this encounter (statuses as of 04/09/2023) Medications Medication Sig Dispensed Refills Start Date End Date Status Nystatin 875330 UNIT/ML Mouth/Throat Suspension Swish and swallow 5 [...] directed through feeding tube via bolus syringe. 95982 mL 11 01/10/2023 Active Additional Information Patient [...] 04/10/2023 9:15 AM EST Imaging Radiology [address], [address] [place] [address] 04/17/2023 9:30 AM EST Telemedicine [facility], [facility] [address] [place] [address] Andreia Horner PA-C 2407 [facility] [place] [address] Anabel Hubbard, Community Health Sample Dye Mixer [address] [place] [address] 04/28/2023 9:00 AM EDT Office Visit [facility] [address] [place] [phone] Alida Aceves MD [address] [place] [address] 05/07/2023 10:00 AM EDT Home Visit [facility], [facility] 132 [place] [address] Carissa Thomas, RN 132 [place] [address] 05/29/2023 8:15 AM EDT Office Visit Hematology/Oncology [facility] 200 [place] [phone] Tevin Kenney MD 200 [place] [address] 07/02/2023 3:20 PM EDT Office Visit Pulmonary Medicine Brea Null [address] [place] [phone] Felipe Hernandez MD [address] [place] [address] Health Maintenance Due Date Last Done Comments [...] mL/hr documented in this encounter Care Teams Lamp Inspector Relationship Specialty Start Date End Date Alida Aceves MD [address] [place] [facility] [place] [address] PCP - General Internal Medicine 08/15/22 documented as of this encounter
--- OUTSIDE RECORDS SUMMARY | 2023-04-27 17:07 | External Medical Summary | Summary of Care ---
Author Name Unknown Organization [facility] Address [address] [place] [address] Phone [phone] Care Team Providers Care Soft Crab Shedder Name Role Phone Alida Aceves MD Primary Care Provider [phone] Reason for Visit * Reason Comments [facility]: Enrollment Encounter Details Date Type Department Care Team (Late st Contact Info) Description 04/07/2023 2:00 PM EST Home Visit [facility], [facility] [address] [place] [address] Carissa Thomas, RN [address] [facility] [place] [address] Allergies No known active allergiesdocumented as of this encounter (statuses as of 04/07/2023) Medications Medication Sig Dispensed Refills Start Date End Date Status Nystatin 427619 UNIT/ML Mouth/Throat Suspension Swish and swallow 5 [...] directed through feeding tube via bolus syringe. 64518 mL 11 01/10/2023 Active Magnesium 400 MG [...] MCG/ACT Inhalation Aerosol Powder Breath Activated (umeclidinium [place]) Inhale 1 Puff by mouth in the [...] 3 days. 10 Patch 0 04/03/2023 Active Doxycycline Hyclate 100 MG Oral Tablet Take 1 Tablet by mouth in the morning and 1 Tablet before bedtime. 0 02/26/202 4 Discontinue d(Medicatio n List Clean Up) Hospital, Clinic, or Other Facility Administered Medication [...] as of this encounter (statuses as of 04/07/2023) Active Problems Problem Noted Date Diagnosed Date Protein-calorie malnutrition, severe 03/28/2023 Immunocompromised 03/28/2023 Rhinitis 03/28/2023 Cancer of base of tongue 01/08/2023 Encounter for antineoplastic chemotherapy 2022 Centrilobular emphysema 11/11/2022 Cavitary lung disease 10/15/2022 Pain in limb 04/04/2008 Family history of ischemic heart disease 009 History of tobacco use 03/22/2008 Venous insufficiency 10/14/2002 documented as of this encounter (statuses as of 04/07/2023) Resolved Problems Problem Noted Date Diagnosed Date Resolved Date 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 9 10/15/2022 Routine medical exam 03/22/2008 024 documented as of this encounter (statuses as of 04/07/2023) Immunizations Name Administration Dates Next Due Pneumococcal [...] Sign Reading Time Taken Comments Blood Pressure 98/60 04/07/2023 1:33 PM EST Pulse 77 04/07/2023 1:33 PM EST Temperature 36.9 C (98.5 F) 04/07/2023 1:33 PM ES T Respiratory Rate 18 04/07/2023 1:33 PM EST Oxygen Saturation 95% 04/07/2023 1:33 PM EST Inhaled Oxygen Concentration - - Weight - - Height - - Body Mass Index - - documented in this encounter Progress Notes * Carissa Thomas RN - 04/07/2023 12:21 PM EST [facility] Boiler RepairmanDrilling Assistant Visit Date: 04/07/2023 Time: 12:21 PM Name: Gm Robins : 1960 Current Concerns: Pt seen for Enrollment to [facility] and [facility] visit Was admitted to [facility] this month - no discharge paperwork available Dx; Right lateral tongue squamous cell carcinoma, pulmonary infection, pancytopenia, mucositis, emphysema, cavitary lung disease, venous insufficiency, protein calorie malnutrition, hx of tobacco use, immunocompromised Pt needs Incruse inhaler and fentanyl patch - has not received either yet Per pharmacy, patch needs prior auth - TE sent to pcp to notify Getting home health services thru [facility], just [facility] Has feeding tube and takes Nutren 6x a day - also give 800ml water flush each day Pt is nonverbal and kept mouth shut during visit Would not even open mouth to cough or let nurse assess tongue He writes down what he wants to say and to answer questions Reports that he has the doctor look at his tongue when he goes Attending chemo and radiation - reports he has 1-2 weeks of tx left , tolerating okay Physical Exam: BP 98/60 | Pulse 77 | Temp 36.9 C (98.5 F) | Resp 18 | SpO2 95% Pain 5 Physical Exam Constitutional: General: He is not in acute distress. Cardiovascular: Rate and Rhythm: Normal rate and regular rhythm. Pulses: Normal pulses. Heart sounds: Normal heart sounds. Pulmonary: Effort: Pulmonary effort is normal. Breath sounds: Rhonchi (scattered, cleared some with coughing) present. Abdominal: General: Bowel sounds are normal. Palpations: Abdomen is soft. Skin: General: Skin is warm and dry. Neurological: Mental Status: He is alert and oriented to person, place, and time. Problems/Symptoms: Review of Systems Constitutional: Positive for fatigue. HENT: Positive for mouth sores (on tongue), trouble swallowing and voice change (nonverbal). Nonverbal Eyes: Negative. Respiratory: Positive for cough (white/clear mucus) and shortness of breath (OLIVAREZ). Cardiovascular: Negative. Gastrointestinal: Negative. Genitourinary: Negative. Musculoskeletal: Negative. Skin: Positive for wound (on tongue - unable to visiualize - would not open mouth). Neurological: Positive for headaches. Hematological: Negative. Psychiatric/Behavioral: Negative. Medication Reconciliation: (See medication list) Does patient take medications as ordered: Yes Patient Well Being: PHQ2/9: About Me Question 03/27/2023 12:23 PM EST - Filed by Patient Demographics Section: I identify my ethnicity as: Patient Declined to Provide I identify my race as: White My preferred language is: Khmer I need an anchorer to communicate with you: No I identify my gender as: Male My pronouns are: unknown My sex assigned at and orginally recorded on my certificate was: Male My sexual orientation is: Choose not to disclose Have you ever served in the ? Never Served (Not a [employer]) Denies any issues with falls Lives alone in 2 story home with small blind/deaf dog Ambulates independently [facility] Completed this Visit: Yes. [facility]: Reason Completed: Enrollment [facility] ([facility]) Fall Risk Assessment Tool Age 65+: No (04/07/23 1300) Diagnosis (3 or more co-existing): Yes (04/07/23 1300) Prior history of falls within 3 months: No (04/07/231299) Incontinence: No (04/07/231299) Visual impairment: No (04/07/231299) Impaired functional mobility: No (04/07/231299) Environmental hazards: No (04/07/231299) Poly Pharmacy (4 or more prescriptions - any type): Yes (04/07/231299) Pain affecting level of function: No (04/07/231299) Cognitive impairment: No (04/07/231299) Score - a score of 4 or more is considered at risk for fallin (04/07/231299) [facility] Interventions: Fall education provided, reviewed/provided Fall brochure Advanced Care Planning: No documentation, acp in progress. Patient's Goals of Care: Pain control Finish chemo Finish radiation Reinforcement/Education: Educated on home safety: Create a fall proof home Clear floors of clutter, loose wires, throw rugs, and cords. Make sure halls, stairways, and entrances are well lit. Install a nightlight in your bedroom, hallway and bathroom. Install grab bars or handrails in the bathroom and on stairs. Use a non-skid tub/shower mat. Avoid climbing on a chair; instead use a step stool with a high handrail. Keep sidewalks and steps in good repair Keep steps and sidewalks free of snow and ice. Using aids to support and prevent falls If you have poor balance or have fallen in the past, consider additional support such as a cane or walker. Use a cane with good support and that is the proper length for you. Use a walker if a cane doesnt provide enough support. Avoid medications that increase the risk of falling by causing dizziness, change in sensation or slowed reflexes. Certain medicines may cause falls - blood pressure pills, heart medicines, water pills, or sleepingpills. Be sure to understand each medicine that you are taking and any side effects that may occur. Improve your balance and flexibility with muscle strengthening exercises. Ask your health care provider for some exercises that will be right for you. Reinforced safety education and fall prevention. and Reinforced medication regimen. Timing., Dosing., and Purspose. Treatment/Plan: Continue meds as prescribed/reviewed Morphine Sulfate for pain control Fentanyl patch recently ordered but has not received yet - waiting on prior auth Albuterol inhaler prn SOB/wheezing Nystatin Swish for tongue sore F/u with heme/onc for chemo/radiation Chemo 1x a week, Radiation 5x a week Home Interventions Provided: Home Intervention: Other; eval Reinforced current Plan of Care, including self-management and medication regimen Patient's 'Red Flags': Uncontrolled pain Increased SOB/wheezing Mucus turns to yellow or green Patient Needs to Remember: Call [facility] at with any new or worsening health concerns or problems, red flag symptoms. Referrals Needed: Other none Follow Up: Is there cellular connectivity/connectivity in the home? Yes Does the patient have internet in the home? Yes Patient encouraged to call the intake phone number for all urgent but not emergent issues. Is the patient new to [facility] within the last 30 days? Yes, Is this a Transitions of Care visit? Yes, this is the 2nd visit or later, Yes cellular connectivity. Was their Readmission Risk Score less than 18%? Yes Does the patient have any active signs of an exacerbation? No Has the patient had any ED visits since being discharged? No, Please forward to Community Scudding Inspector for telehealth scheduling, and indicate appropriate week of Transition of Care. Provider is in agreement with Plan of Care: Yes Scheduled to follow up with patient in 1 week with provider, 2-3 weeks with RNCM. Carissa Thomas RN 04/07/2023 12:21 PM documented in this encounter Plan of Treatment Upcoming Encounters Date Type Department Care Team (Late st Contact Info) Description 04/08/2023 9:10 AM EST Laboratory Laboratory [facility] Patti [place] [address] [place] [phone] Patti, Lab Scenery [address] [facility] [place] [address] 04/08/2023 10:00 AM EST Hem/Onc Treatment Hematology/Oncology Treatment, [place] [address] [place] [phone] Patti, Chair 6 Hem Onc Scenery [address] [place] [address] 04/10/2023 9:15 AM EST Imaging Radiology [address] 132 [facility] [place] [address] 04/17/2023 9:30 AM EST Telemedicine [facility], [facility] [address] [place] [address] Andreia Horner PA-C [address] [place] [address] Anabel Hubbard, Community Health [place] [address] [place] [address] 04/28/2023 9:00 AM EDT Office Visit [facility] [address] [place] [phone] Alida Aceves MD [address] [place] [address] 05/07/2023 10:00 AM EDT [facility] Visit [facility], [facility] 132 [facility] [place] [address] Carissa Thomas, RN 132 [place] [address] 05/29/2023 8:15 AM EDT Office Visit Hematology/Oncology [facility] 200 [facility] [place] [address] Tevin Kenney MD 200 [facility] [place] [address] 07/02/2023 3:20 PM EDT Office Visit Pulmonary Medicine Brea Null [address] [place] [place] [phone] Felipe Hernandez MD [address] [place] [address] Health Maintenance Due Date Last Done Comments [...] filedocumented as of this encounter Care Teams Soft Crab Shedder Relationship Specialty Start Date End Date Alida Aceves MD [address] [place] [address] PCP - General Internal Medicine 08/15/22 documented as of this encounter"
--- OUTSIDE RECORDS SUMMARY | 2023-04-27 17:07 | External Medical Summary | Summary of Care ---
Author Name Unknown Organization [facility] Address [address] [place] [address] Phone [phone] Care Team Providers Care Group Billing Coordinator Name Role Phone Alida Aceves MD Primary Care Provider [phone] Reason for Visit * Reason Onset Date Comments [facility]: Maintenance 04/07/2023 Encounter Details Date Type Department Care Team (Late st Contact Info) Description 04/07/2023 Telephone [facility], [facility] [address] [employer] [place] [address] Carissa Thomas, RN [address] [employer] [facility] [place] [address] [facility]: Maintenance Allergies No known active allergiesdocumented as of this encounter (statuses as of 04/07/2023) Medications Medication Sig Dispensed Refills Start Date End Date Status Nystatin 185511 UNIT/ML Mouth/Throat Suspension Swish and swallow 5 [...] directed through feeding tube via bolus syringe. 00011 mL 11 01/10/2023 Active Magnesium 400 MG [...] MCG/ACT Inhalation Aerosol Powder Breath Activated (umeclidinium [place]) Inhale 1 Puff by mouth in the [...] Telephone Encounter - Alida Aceves MD - 04/07/2023 2:05 PM EST I sent out fentanyl patch with diagnosis of tongue cancer But I didn't get any other info about his medication process yet Did we get any notification for Prior auth ? * Telephone Encounter - Carissa Thomas RN - 04/07/2023 1:[address] Aceves - Pt has not received his Fentanyl patch yet He received a notification from [employer] that prior auth is needed. Just wanted to make sure you received that message and to complete when you get a chance. Thank you! documented in this encounter Plan of Treatment Upcoming Encounters Date Type Department Care Team (Late st Contact Info) Description 04/08/2023 9:10 AM EST Laboratory Laboratory [facility] [address] [place] [phone] Patti Lab [facility] [address] [place] [place] [address] 04/08/2023 10:00 AM EST Hem/Onc Treatment Hematology/Oncology Treatment, [place] [address] [place] [phone] Patti, Chair 6 Hem Onc Scene [address] [place] [address] 04/10/2023 9:15 AM EST Imaging Radiology [facility] 1st [facility], [place] 132 [facility] [place] [address] 04/17/2023 9:30 AM EST Telemedicine [facility], [facility] [address] [place] [address] Andreia Horner PA-C 2407 [facility] [place] [address] Anabel Hubbard, Community Health Playground Official [address] [place] [address] 04/28/2023 9:00 AM EDT Office Visit [facility] [address] [place] [phone] Alida Aceves MD [address] [place] [address] 05/07/2023 10:00 AM EDT Home Visit [facility], [facility] 132 [place] [address] Carissa Thomas, RN 132 [place] [address] 05/29/2023 8:15 AM EDT Office Visit Hematology/Oncology [facility] 200 [place] [phone] Tevin Kenney MD 200 [place] [address] 07/02/2023 3:20 PM EDT Office Visit Pulmonary Medicine Brea Null [address] [place] [phone] Felipe Hernandez MD [address] [address] Health Maintenance Due Date Last Done Comments [...] filedocumented as of this encounter Care Teams Group Billing Coordinator Relationship Specialty Start Date End Date Alida Aceves MD [address] [place] [address] PCP - General Internal Medicine 08/15/22 documented as of this encounter
--- OUTSIDE RECORDS SUMMARY | 2023-04-27 17:07 | External Medical Summary | Summary of Care ---
Author Name Unknown Organization [facility] Address [address] [place] [address] Phone [phone] Care Team Providers Care Plating And Point Assembly Supervisor Name Role Phone Alida Aceves MD Primary Care Provider [phone] Reason for Visit * Reason Comments Chemotherapy C1/D8 - Cisplatin * Episode Based Medications (Routine) - Authorized Specialty Diagnoses / Procedures Referred By Contac t Referred To Contact Diagnoses Encounter for antineoplastic chemotherapy Cancer of base of tongue (HCC) Procedures [place] CISPLATIN 10 MG INJECTION [place] FOSAPREPITANT INJECTION [place] INJ., APREPITANT, 1 MG Tevin Kenney MD 200 [facility] [place] [address] Anc Hem/Onc [address] [address] Referral ID Status Reason Start Date Expiration Date V isits Requested Visits Authorized [id number] Authorized 03/13/2023 03/13/2024 999 [id number] Encounter Details Date Type Department Care Team (Latest Contact Info) Description 02/20/2023 8:45 AM EST Hem/Onc Treatment Hematology/Oncolog y Treatment, [address] [phone] Patti, Chair 1 Hem Onc [address] [place] [address] Encounter for antineoplastic chemotherapy*; Cancer of base of tongue (HCC) Allergies No known active allergiesdocumented as of this encounter (statuses as of 04/08/2023) Medications Medication Sig Dispensed Refills Start Date End Date Status Nystatin 981265 UNIT/ML Mouth/Throat Suspension Swish and swallow 5 [...] directed through feeding tube via bolus syringe. 28690 mL 11 01/10/2023 Active Additional Information Patient [...] 9:10 AM EST Laboratory Laboratory Scene Patti [place] [address] [place] [phone] Patti, Lab Scenery [address] [place] [address] 04/08/2023 10:00 AM EST Hem/Onc Treatment Hematology/Oncology Treatment, [place] [address] [place] [phone] Patti, Chair 6 Hem Onc Scenery [address] [place] [address] 04/10/2023 9:15 AM EST Imaging Radiology [address], [place] 132 [facility] [place] [address] 04/17/2023 9:30 AM EST Telemedicine [facility], [facility] [address] [place] [address] Andreia Horner PA-C [address] [place] [address] Anabel Hubbard, Community Health Direct Sales Professional [address] [place] [address] 04/28/2023 9:00 AM EDT Office Visit [facility] [address] [place] [phone] Alida Aceves MD [address] [place] [address] 05/07/2023 10:00 AM EDT Home Visit [facility], [facility] 132 [facility] [place] [address] Carissa Thomas RN 132 [facility] [place] [address] 05/29/2023 8:15 AM EDT Office Visit [facility]ology[facility] [place]atti [place] [address] [place] [phone] Tevin Kenney MD 200 [facility] [place] [address] 07/02/2023 3:20 PM EDT Office Visit Pulmonary Medicine Brea Null [address] [place] [phone] Felipe Hernandez MD [address] [place] [address] Health Maintenance Due Date Last Done Comments [...] mL/hr documented in this encounter Care Teams Plating And Point Assembly Supervisor Relationship Specialty Start Date End Date Alida Aceves MD [address] [facility] [place] [address] PCP - General Internal Medicine 08/15/22 documented as of this encounter
--- OUTSIDE RECORDS SUMMARY | 2023-04-27 17:07 | External Medical Summary | Summary of Care ---
Author Name Unknown Organization [facility] Address [address] [place] [address] Phone [phone] Care Team Providers Care Deputy Controller Name Role Phone Alida Aceves MD Primary Care Provider [phone] Reason for Visit * Reason Comments Chemotherapy Cisplatin D1C1 * Episode Based Medications (Routine) - Authorized Specialty Diagnoses / Procedures Referred By Contac t Referred To Contact Diagnoses Encounter for antineoplastic chemotherapy Cancer of base of tongue (HCC) Procedures [place] CISPLATIN 10 MG INJECTION [place] FOSAPREPITANT INJECTION [place] INJ., APREPITANT, 1 MG Tevin Kenney MD 200 [place] [address] Anc Hem/Onc [address] [address] Referral ID Status Reason Start Date Expiration Date V isits Requested Visits Authorized [id number] Authorized 03/13/2023 03/13/2024 999 99 Encounter Details Date Type Department Care Team (Latest Contact Info) Description 02/13/2023 8:45 AM EST Hem/Onc Treatment Hematology/Oncolog y Treatment, [address] [address] Patti, Chair 5 Hem Onc [address] [place] [address] Encounter for antineoplastic chemotherapy*; Cancer of base of tongue (HCC) Allergies No known active allergiesdocumented as of this encounter (statuses as of 04/07/2023) Medications Medication Sig Dispensed Refills Start Date End Date Status Nystatin 030836 UNIT/ML Mouth/Throat Suspension Swish and swallow 5 [...] directed through feeding tube via bolus syringe. 78521 mL 11 01/10/2023 Active Additional Information Patient [...] Sign Reading Time Taken Comments Blood Pressure 151/91 02/13/2023 10:10 AM EST Pulse 96 02/13/2023 10:10 AM EST Temperature 36.3 C (97.4 F) 02/13/2023 10:[address] Respiratory Rate 18 02/13/2023 10:10 AM EST Oxygen Saturation 98% 02/13/2023 10:10 AM EST Inhaled Oxygen Concentration - - Weight - - Height - - Body Mass Index - - documented in this encounter Nursing Notes * Judi Sanchez, NGUYỄN - 02/13/2023 3:43 PM EST Pt completed treatment without issues. IV removed. Goals: Pt will remain free from injury. Possible barriers to meeting goals: pt is a high fall risk Stability of the patient: Moderately stable - low risk of patient condition declining or worsening Summary regarding today's goals: Met: Pt remained free from injury during treatment today. Discharged in stable condition. Goals: Pt will demonstrate understanding. Possible barriers to meeting goals: Pt has difficulty with verbal communication currently Stability of the patient: Moderately stable - low risk of patient condition declining or worsening Summary regarding today's goals: Met: Reviewed medications, treatment schedule and use of antiemetics at home; pt verbalized understanding and asked appropriate questions. ABYEIMI assisted. * Judi Sanchez RN - 02/13/2023 2:40 PM EST Functional status at today's visit: Restricted in [...] symptoms or adverse side effects during treatment. * Judi Sanchez RN - 02/13/2023 10:10 AM EST Chair 8, Cisplatin D1C1. Pt communicates via written responses, as talking is currently painful. Ptdenies any acute concerns today. Pt is currently unable to take PO medication; alteration placed for pretreatment meds to be administered IV today. PIV established; NSS infusing. Pt oriented to treatment room and infusion process. Safety and Risk for Injury Patient will remain free from injury. Ensure appropriate safety devices are available. Provide and maintain safe environment. Knowledge Deficit Patient and Caregiver will demonstrate understanding. Assess current knowledge base. Reinforce education. Teach at level of understanding. documented in this encounter Plan of Treatment Upcoming Encounters Date Type Department Care Team (Late st Contact Info) Description 04/08/2023 9:10 AM EST Laboratory Laboratory Scenery [facility] [address] [place] [phone] Patti, Lab Scenery [address] [place] [address] 04/08/2023 10:00 AM EST Hem/Onc Treatment Hematology/Oncology Treatment, [place] [address] [place] [phone] Patti, Chair 6 Hem Onc Scenery [address] [place] [address] 04/10/2023 9:15 AM EST Imaging Radiology [address], [place] 132 [facility] [place] [address] 04/17/2023 9:30 AM EST Telemedicine [facility], [facility] [address] [place] [address] Andreia Horner, PA-C [address] [place] [address] Anabel Hubbard, Community Health De Ionizer Operator [address] [place] [address] 04/28/2023 9:00 AM EDT Office Visit [facility] [address] [place] [phone] Alida Aceves MD [address] [place] [address] 05/07/2023 10:00 AM EDT [facility] Visit [facility], [facility] [address] [employer] [place] [address] Carissa Thomas, RN [address] [place] [address] 05/29/2023 8:15 AM EDT Office Visit Hematology/Oncology [facility] [place] 200 [facility] [place] [phone] Tevin Kenney MD 200 [facility] [place] [address] 07/02/2023 3:20 PM EDT Office Visit Pulmonary Medicine Brea Null [address] [phone] Felipe Hernandez MD [address] [place] [place] [address] Health Maintenance Due Date Last Done Comments [...] MAR Action Action Date Dose Rate Site Aprepitant (Cinvanti) IV push 130 mg 130 mg, IV Push, ONCE, On Liz 02/13/23 at 1000, For 1 dose, Flush infusion line with NSS before and after administration of Aprepitant Administer over 2 minutes IV PUSH Given 02/13/2023 10:50 AM EST 130 mg CISplatin (Platinol) 68 mg in NSS 250 mL infusion 68 mg (rounded from 68.8 mg = 40 mg/m2 1.72 m2 Treatment Plan BSA from Recorded weight), IV Piggyback, Administer over 60 Minutes, PROTECT FROM LIGHT During radiation therapy only., ONCE, 1 dose, On Fri02/13/23 at 1100 Start Infusion 02/13/2023 11:16 AM EST 68 mg 250 mL/hr dexamethasone sodium phosphate 12 mg in NSS 50 mL ivpb 12 mg, IV Piggyback, ONCE, On Liz 02/13/23 at 1000, For 1 dose, PROTECT FROM LIGHT Infuse over 30 minutes! Start Infusion 02/13/2023 10:02 AM EST 12 mg 100 mL/hr Furosemide (Lasix) inj 20 mg 20 mg, IV Push, ONCE, On Liz 02/13/23 at 1000, For 1 dose Given 02/13/2023 12:40 PM EST 20 mg NSS 1,000 mL with magnesium sulfate 1 g, potassium chloride 20 mEq infusion Intravenous, at 500 mL/hr Administer over 2 Hours, Post-cisplatin hydration, ONCE, 1 dose, On Fri02/13/23 at 1200 Given 02/13/2023 12:43 PM EST 500 mL/hr NSS infusion 1,000 mL, Intravenous, at 500 mL/hr Administer over 2 Hours, Pre-cisplatin hydration, CONTINUOUS, Starting on Fri02/13/23 at 1000, Until Liz 02/13/23 at 1159 Start Infusion 02/13/2023 9:15 AM EST 1,000 mL 500 mL/hr ondansetron (Zofran) inj 8 mg 8 mg, IV Push, ONCE, On Liz 02/13/23 at 1000, For 1 dose Given 02/13/2023 10:54 AM EST 8 mg documented in this encounter Care Teams Deputy Controller Relationship Specialty Start Date End Date Alida Aceves MD [address] [place] [place] [address] PCP - General Internal Medicine 08/15/22 documented as of this encounter
--- OUTSIDE RECORDS SUMMARY | 2023-04-27 17:07 | External Medical Summary | Summary of Care ---
Author Name Unknown Organization [facility] Address [address] [place] [address] Phone [phone] Care Team Providers Care Social Human Services Assistants Name Role Phone Alida Aceves MD Primary Care Provider Reason for Visit * Reason Onset Date Comments [facility]: Maintenance 04/07/2023 Encounter Details Date Type Department Care Team (Late st Contact Info) Description 04/07/2023 Telephone [facility], [facility] [address] [place] [address] Carissa Thomas, RN [address] [employer] [place] [place] [address] [facility]: Maintenance Allergies No known active allergiesdocumented as of this encounter (statuses as of 04/07/2023) Medications Medication Sig Dispensed Refills Start Date End Date Status Nystatin 441601 UNIT/ML Mouth/Throat Suspension Swish and swallow 5 [...] directed through feeding tube via bolus syringe. 64379 mL 11 01/10/2023 Active Magnesium 400 MG [...] MCG/ACT Inhalation Aerosol Powder Breath Activated (umeclidinium [place]) Inhale 1 Puff by mouth in the [...] encounter Miscellaneous Notes * Telephone Encounter - Kimmie Angel LPN - 04/07/2023 6:55 PM EST Prior auth was started today * Telephone Encounter - Alida Aceves MD [...] patch yet He received a notification from [employer] that prior auth is needed. Just wanted to make sure you received that message and to complete when you get a chance. Thank you! documented in this encounter Plan of Treatment Upcoming Encounters Date Type Department Care Team (Late st Contact Info) Description 04/08/2023 9:10 AM EST Laboratory Laboratory Scenery Patti [place] [address] [place] [phone] Patti, Lab Scenery [address] [place] [address] 04/08/2023 10:00 AM EST Hem/Onc Treatment Hematology/Oncology Treatment, [place] [address] [place] [phone] Patti, Chair 6 Hem Onc Scenery [address] [place] [address] 04/10/2023 9:15 AM EST Imaging Radiology [address] 132 [facility] [address] 04/17/2023 9:30 AM EST Telemedicine [facility], [facility] [address] [address] Andreia Horner PANanC [address] [place] [address] Anabel Hubbard, Community Health Customs Guard [address] [place] [address] 04/28/2023 9:00 AM EDT Office Visit [facility] [address] [place] [phone] Alida Aceves MD [address] [place] [address] 05/07/2023 10:00 AM EDT Home Visit [facility], [facility] 132 [place] [address] Carissa Thomas, RN 132 [facility] [address] 05/29/2023 8:15 AM EDT Office Visit Hematology/Oncology [facility] 200 [facility] [place] [phone] Tevin Kenney MD 200 [facility] [place] [address] 07/02/2023 3:20 PM EDT Office Visit Pulmonary Medicine Brea Null [address] [phone] Felipe Hernandez MD [address] [address] Health Maintenance Due Date Last Done Comments [...] filedocumented as of this encounter Care Teams Social Human Services Assistants Relationship Specialty Start Date End Date Alida Aceves MD [address] [facility] [phone] PCP - General Internal Medicine 08/15/22 documented as of this encounter
--- OUTSIDE RECORDS SUMMARY | 2023-04-27 17:07 | External Medical Summary | Summary of Care ---
Author Name Unknown Organization [facility] Address [address] [place] [address] Phone [phone] Care Team Providers Care Block Feeder Name Role Phone Alida Aceves MD Primary Care Provider [phone] Reason for Visit * Reason Comments Chemotherapy C1D22 Cisplatin * Episode Based Medications (Routine) - Authorized Specialty Diagnoses / Procedures Referred By Contac t Referred To Contact Diagnoses Encounter for antineoplastic chemotherapy Cancer of base of tongue (HCC) Procedures CT CISPLATIN [address]ITANT IN[address] CT INJ., APREPITANT, 1 MG Tevin Kenney MD 200 [facility] [place] [address] Anc Hem/Onc [facility] Patti [address] [place] [phone] Referral ID Status Reason Start Date Expiration Date V isits Requested Visits Authorized [id number] Authorized 03/13/2023 03/13/2024 999 99 Encounter Details Date Type Department Care Team (Latest Contact Info) Description 03/06/2023 8:45 AM EST Hem/Onc Treatment Hematology/Oncolog y Treatment, [address] [address] Patti, Chair 4 Hem Onc [address] [place] [address] Encounter for antineoplastic chemotherapy*; Cancer of base of tongue (HCC) Allergies No known active allergiesdocumented as of this encounter (statuses as of 04/03/2023) Medications Medication Sig Dispensed Refills Start Date End Date Status Nystatin 829615 UNIT/ML Mouth/Throat Suspension Swish and swallow 5 [...] directed through feeding tube via bolus syringe. 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 9 10/15/2022 Routine medical exam 03/22/2008 024 documented as of this encounter (statuses as of 04/03/2023) Immunizations Name Administration Dates Next Due Pneumococcal [...] Sign Reading Time Taken Comments Blood Pressure 115/74 03/06/2023 9:00 AM EST Pulse 91 03/06/2023 9:00 AM EST Temperature 37 C (98.6 F) 03/06/2023 9:00 AM EST Respiratory Rate 16 03/06/2023 9:00 AM EST Oxygen Saturation 97% 03/06/2023 9:00 AM EST Inhaled Oxygen Concentration - - Weight 56.2 kg (124 lb) 03/06/2023 9:00 AM EST Height - - Body Mass Index 16.82 03/03/2023 3:01 PM EST documented in this encounter Nursing Notes * Joelle Stafford RN - 03/06/2023 2:25 PM EST Functional status at today's visit: [...] symptoms or adverse side effects during treatment. Goals: Patient will remain free from injury. Possible barriers to meeting goals: ambulation with IV pole, unable to speak Stability of the patient: Moderately unstable - medium risk of patient condition declining or worsening Summary regarding today's goals: Met: Pt remained free of injury during treatment today. Patient tolerated treatment well and was discharged in stable condition. Coverage by Alisha Adan LPN, Janis Fay RN and Ej Leyva RN. * Lisette Fay RN - 03/06/2023 9:55 AM EST Chair 8. IV inserted, hydration started. Patient arrived today for Cisplatin treatment, overall feeling well today but did express he is having more pain in his tongue and would like something different to help. Patient had been prescribed oxycodone by [facility] but says this does not help. Patient also states he has a red rash everywhere that he noticed this past Wednesday 03/01. Patient also says the ringing in his ears has become worse, still intermittent but seems worse than it had been prior. Dr. Kenney was made aware of the above noted. Will order liquid morphine for patient's pain, told not to take the oxycodone anymore, will transition to liquid morphine instead. Dr. Kenney assessed the rash patient has -- red areas are not raised and patient denies any itchiness but it is present on his abdomen, back, sides, and both arms. Dr. Kenney informed patient to take Benadryl at home for thisand see if it improves. In regards to tinnitus, will continue current treatment regimen with weeklyCisplatin per Dr. Kenney. Patient was informed by Dr. Kenney, the ringing in his ears may worsen but we are almost done with treatment, patient communicated understanding regarding this. Patient says he is only using about 600 ml of liquid to pout through his PEG tube with feedings, which is what dietary had educated he do -- Dr. Kenney recommended patient to increase fluids through his PEG tube daily -- educated to increase fluids to about 2000 ml daily which would equate to the recommended 64 oz/day at least, especially while on chemotherapy. Pt agreed and will try to increase fluids though PEG tube. Chemo agents Cisplatin Appetite PEG tube in place, using the feeding discussed with Glass Blowing Lathe Operator per their recommendations Nausea/Vomiting no Diarrhea no Constipation no Mucositis no Fatigue occasionally yes Bleeding no Infection no Rash yes, see above documented regarding reddened areas over body Numbness tingling no Pain yes, tongue pain, ongoing and oxycodone is not working for pain, Dr. Kenney to order liquid morphine for patient instead Radiation yes, daily ABN Labs WNL for tx Alt in Tx: N/A Return in 1 week Safety and Risk for Injury Patient will remain free from injury. Ensure appropriate safety devices are available. Provide and maintain safe environment. documented in this encounter Plan of Treatment Upcoming Encounters Date Type Department Care Team (Late st Contact Info) Description 04/07/2023 2:00 PM EST [facility], [facility] 132 [facility] [place] [address] Carissa Thomas RN [address] [place] [address] 04/08/2023 9:10 AM EST Laboratory [place] [address] [place] [phone] Park, Lab Scenery [address] [place] [address] 04/08/2023 10:00 AM EST Hem/Onc Treatment Hematology/Oncology Treatment, [place] [address] [place] [phone] Park, Chair 6 Hem Onc [address] [place] [address] 04/10/2023 9:15 AM EST Imaging Radiology [address], [place] [address] [place] [address] 04/17/2023 9:30 AM EST Telemedicine [facility], [place] [address] [place] [address] Andreia Horner PA-C [address] [place] [address] Anabel Hubbard, Community Health Superintendent [place] [address] [place] [address] 04/28/2023 9:00 AM EDT Office Visit [facility] [address] [place] [address] Alida Aceves MD [address], [place] [phone] 05/29/2023 8:15 AM EDT Office Visit Hematology/Oncology [facility] [place] 200 [facility] [place] [address] Tevin Kenney MD 200 [facility] [place] [address] 07/02/2023 3:20 PM EDT Office Visit Pulmonary Medicine Brea Null [address] [place] [address] Felipe Hernandez MD [address] [place] [phone] Health Maintenance Due Date Last Done Comments [...] therapy only., ONCE, 1 dose, On Liz 03/06/23 at 1100 Start Infusion 03/06/2023 11:03 AM EST 68 mg 250 mL/hr Fosaprepitant Dimeglumine (Emend) 150 mg, ondansetron (Zofran) 16 mg, dexamethasone sodium phosphate 12 mg in NSS 250 mL Infusion 150 mg, IV Piggyback, ONCE, 1 dose, On Liz 03/06/23 at 1030, Administer over 30 Minutes, Give 30 minutes prior to chemotherapy. Infuse over 30 minutes. Start Infusion 03/06/2023 9:44 AM EST 150 mg 500 mL/hr Furosemide (Lasix) inj 20 mg 20 mg, IV Push, ONCE, On Liz 03/06/23 at 1000, For 1 dose Given 03/06/2023 12:07 PM EST 20 mg NSS 1,000 mL with magnesium sulfate 1 g, potassium chloride 20 mEq infusion Intravenous, at 500 mL/hr Administer over 2 Hours, Post-cisplatin hydration, ONCE, 1 dose, On Liz 03/06/23 at 1200 Given 03/06/2023 12:07 PM EST 500 mL/hr NSS infusion 1,000 mL, Intravenous, at 500 mL/hr Administer over 2 Hours, Pre-cisplatin hydration, CONTINUOUS, Starting on Liz 03/06/23 at 1000, Until Liz 03/06/23 at 1159 Start Infusion 03/06/2023 9:05 AM EST 1,000 mL 500 mL/hr documented in this encounter Care Teams Block Feeder Relationship Specialty Start Date End Date Alida Aceves MD [address] [place] [address] PCP - General Internal Medicine 08/15/22 documented as of this encounter
--- OUTSIDE RECORDS SUMMARY | 2023-04-27 17:07 | External Medical Summary | Summary of Care ---
Author Name Unknown Organization [facility] Address [address] [place] [address] Phone [phone] Care Team Providers Care Odd Shoe Examiner Name Role Phone Alida Aceves MD Primary Care Provider [phone] Reason for Visit * Reason Onset Date Comments Pre Cert/Prior Auth 04/07/2023 Fentanyl pat ch Encounter Details Date Type Department Care Team (Late st Contact Info) Description 04/07/2023 Telephone [facility] [address] [place] [address] Alida Aceves MD [address] [place] [address] Pre Cert/Prior Auth (Fentanyl patch) Allergies No known active allergiesdocumented as of this encounter (statuses as of 04/07/2023) Medications Medication Sig Dispensed Refills Start Date End Date Status Nystatin 831257 UNIT/ML Mouth/Throat Suspension Swish and swallow 5 [...] directed through feeding tube via bolus syringe. 80376 mL 11 01/10/2023 Active Magnesium 400 MG [...] MCG/ACT Inhalation Aerosol Powder Breath Activated (umeclidinium [place]) Inhale 1 Puff by mouth in the [...] Promptpa for Fentanyl 12 mcg EOC # [id number] documented in this encounter Plan of Treatment Upcoming Encounters Date Type Department Care Team (Late st Contact Info) Description 04/08/2023 9:10 AM EST Laboratory Laboratory Scenery [facility] [address] [place] [phone] Patti, Lab Scenery 200 [facility] [place] [address] 04/08/2023 10:00 AM EST Hem/Onc Treatment Hematology/Oncology Treatment, [place] [address] [place] [phone] Patti, Chair 6 Hem Onc Scenery [address] [place] [address] 04/10/2023 9:15 AM EST Imaging Radiology [facility] 1st Floor, [place] [facility] [address] 04/17/2023 9:30 AM EST Telemedicine [facility], [place] [address] [place] [address] Andreia Horner PA-C [address] [place] [address] Anabel Hubbard, Community Health Office Admin [address] [place] [address] 04/28/2023 9:00 AM EDT Office Visit [facility] [address] [place] [phone] Alida Aceves MD [address] [place] [address] 05/07/2023 10:00 AM EDT [facility] [address] [facility] [place] [place] [address] Carissa Thomas, RN [address] [place] [address] 05/29/2023 8:15 AM EDT Office Visit Hematology/Oncology [facility] 200 [facility] [place] [phone] Tevin Kenney MD 200 [place] [address] 07/02/2023 3:20 PM EDT Office Visit Pulmonary Medicine Brea Null [address] [place] [phone] Felipe Hernandez MD [address] [place] [address] Health Maintenance Due Date Last Done Comments [...] filedocumented as of this encounter Care Teams Odd Shoe Examiner Relationship Specialty Start Date End Date Alida Aceves MD [address] [place] [address] PCP - General Internal Medicine 08/15/22 documented as of this encounter
--- OUTSIDE RECORDS SUMMARY | 2023-04-27 17:07 | External Medical Summary | Summary of Care ---
Author Name Unknown Organization [facility] Address [address] [place] [address] Phone [phone] Care Team Providers Care Journeyman Machinist Name Role Phone Alida Aceves MD Primary Care Provider [phone] Reason for Visit * Reason Comments Chemotherapy Cisplatin D1C1 * Episode Based Medications (Routine) - Authorized Specialty Diagnoses / Procedures Referred By Contac t Referred To Contact Diagnoses Encounter for antineoplastic chemotherapy Cancer of base of tongue (HCC) Procedures SD CISPLATIN 10 MG INJECTION SD FOSAPREPITANT INJECTION SD INJ., APREPITANT, 1 MG Tevin Kenney MD 200 [place] [address] Anc Hem/Onc [address] [address] Referral ID Status Reason Start Date Expiration Date V isits Requested Visits Authorized [id number] Authorized 03/13/2023 03/13/2024 999 99 Encounter Details Date Type Department Care Team (Latest Contact Info) Description 02/13/2023 8:45 AM EST Hem/Onc Treatment Hematology/Oncolog y Treatment, [address] [address] Patti, Chair 5 Hem [address] [place] [address] Encounter for antineoplastic chemotherapy*; Cancer of base of tongue (HCC) Allergies No known active allergiesdocumented as of this encounter (statuses as of 04/07/2023) Medications Medication Sig Dispensed Refills Start Date End Date Status Nystatin 308241 UNIT/ML Mouth/Throat Suspension Swish and swallow 5 [...] directed through feeding tube via bolus syringe. 06473 mL 11 01/10/2023 Active Additional Information Patient [...] 04/08/2023 9:10 AM EST Laboratory Laboratory Scenery [facility] [address] [place] [phone] Patti, Lab Scenery [address] [place] [address] 04/08/2023 10:00 AM EST Hem/Onc Treatment Hematology/Oncology Treatment, [place] [address] [place] [phone] Patti, Chair 6 Hem Onc Scenery [address] [place] [address] 04/10/2023 9:15 AM EST Imaging Radiology [address], [place] 132 [facility] [place] [address] 04/17/2023 9:30 AM EST Telemedicine [facility], [facility] [address] [place] [address] Andreia Horner, PA-C [address] [place] [address] Anabel Hubbard, Community Health Warp Changer [address] [place] [address] 04/28/2023 9:00 AM EDT Office Visit [facility] [address] [place] [phone] Alida Aceves MD [address] [place] [address] 05/07/2023 10:00 AM EDT [facility] [place] 132 [facility] [place] [address] Carissa Thomas, RN [address] [place] [address] 05/29/2023 8:15 AM EDT Office Visit Hematology/Oncology [facility] [place] 200 [facility] [place] [phone] Tevin Kenney MD 200 [facility] [place] [address] 07/02/2023 3:20 PM EDT Office Visit Pulmonary Medicine Brea Null [address] [place] [phone] Felipe Hernandez MD [address] [place] [address] Health Maintenance Due Date Last Done Comments [...] mg documented in this encounter Care Teams Journeyman Machinist Relationship Specialty Start Date End Date Alida Aceves MD [address] [place] [address] PCP - General Internal Medicine 08/15/22 documented as of this encounter
--- OUTSIDE RECORDS SUMMARY | 2023-04-27 17:07 | External Medical Summary ---
Author Name Unknown Address Unknown Organization [facility]-02 - [address] [place] [address] Laboratory Report Ordering Provider Test Date Status MAULIK KANG 04/08/2023 10:03:36 Final Observation Date Value Abnormality Reference (Units ) Status SYNC LEUKOCYTES IN BLOOD BY AUTOMATED COUNT 04/08/2023 10:03:36 17.89 Above high normal 4.00-10.80 (K/uL) Final Neutrophils/100 leukocytes in Blood by Manual count 04/08/2023 10:03:36 86.0 Above high normal 40.0-75.0 (%) Final Lymphocytes/100 leukocytes in Blood by Manual count 04/08/2023 10:03:36 1.0 Below low normal 18.0-42.0 (%) Final Monocytes/100 leukocytes in Blood by Manual count 04/08/2023 10:03:36 10.0 1.0-11.0 (%) Final Metamyelocytes/100 leukocytes in Blood by Manual count 04/08/2023 10:03:36 3.0 Above high normal <=0.0 (%) Final Neutrophils [#/volume] in Blood by Manual count 04/08/2023 10:03:36 15.39 Above high normal 1.80-7.70 (K/uL) Final Lymphocytes [#/volume] in Blood by Manual count 04/08/2023 10:03:36 0.18 Below low normal 1.00-4.80 (K/uL) Final Monocytes [#/volume] in Blood by Manual count 04/08/2023 10:03:36 1.79 Above high normal 0.00-1.10 (K/uL) Final Metamyelocytes [#/volume] in Blood by Manual count 04/08/2023 10:03:36 0.54 Above high normal <=0.00 (K/uL) Final Nucleated erythrocytes/100 leukocytes [Ratio] in Blood by Automated count 04/08/2023 10:03:36 Final Acanthocytes [Presence] in Blood by Light microscopy 04/08/2023 10:03:36 Moderate Abnormal None Seen Final Performing Location [facility]- 02 - [address] [place] [address]
--- OUTSIDE RECORDS SUMMARY | 2023-04-27 17:07 | External Medical Summary ---
Author Name Unknown Address Unknown Organization [facility] [place] [address] Laboratory Report Ordering Provider Test Date Status MAULIK KANG 04/08/2023 10:03:36 Final Observation Date Value Abnormality Reference (Units ) Status WBC, Total 04/08/2023 10:03:36 17.89 Above high normal 4 .00-10.80 (K/uL) Final RBC 04/08/2023 10:03:36 3.13 4.50-5.25 (M/uL) Final Hemoglobin 04/08/2023 10:03:36 10.2 Below low normal 14 .0-16.8 (g/dL) Final HCT 04/08/2023 10:03:36 31.9 Below low normal 40. 0-48.4 (%) Final MCV 04/08/2023 10:03:36 101.9 82.0-99.5 (fL) Final MCH 04/08/2023 10:03:36 32.6 27.0-34.0 (pg) Final MCHC 04/08/2023 10:03:36 32.0 32.0-36.0 (g/dL) Final RDW 04/08/2023 10:03:36 20.7 11.5-15.5 (%) Final Platelets 04/08/2023 10:03:36 460 Above high normal 14 0-400 (K/uL) Final MPV 04/08/2023 10:03:36 8.8 6.6-11.1 ( fL) Final Performing Location [facility] [place] [address]
--- OUTSIDE RECORDS SUMMARY | 2023-04-27 17:07 | External Medical Summary ---
Author Name Unknown Address Unknown Organization [facility]- [address] [place] [address] Laboratory Report Ordering Provider Test Date Status MAULIK KANG 04/08/2023 10:03:36 Final Observation Date Value Abnormality Reference (Units ) Status BUN 04/08/2023 10:03:36 22 Above high normal 6-20 (mg/dL) Final Creatinine 04/08/2023 10:03:36 0.8 0.6-1.2 (mg/dL) Final Glomerular filtration rate/1.73 sq M.predicted [Volume Rate/Area] in Serum, Plasma or Blood by Creatinine-based formula (CKD-EPI) 04/08/2023 10:03:36 >90 >=60 (mL/min) Final eGFR is calculated based on the CKD-EPI 2020 equation SODIUM 04/08/2023 10:03:36 132 Below low normal 135 -146 (mmol/L) Final Potassium 04/08/2023 10:03:36 5.2 Above high normal 3. 5-5.1 (mmol/L) Final Cl 04/08/2023 10:03:36 93 Below low normal 98- 107 (mmol/L) Final CO2 04/08/2023 10:03:36 26 22-32 (mmo l/L) Final Anion gap 04/08/2023 10:03:36 13 7-15 (mmol /L) Final Glucose 04/08/2023 10:03:36 107 70-120 (mg /dL) Final Albumin 04/08/2023 10:03:36 3.6 Below low normal 3.8 -5.0 (g/dL) Final AST (Aspartate aminotransferase) 04/08/2023 10:03:36 18 10-50 (U/L) Fin al Alk Phos 04/08/2023 10:03:36 93 35-130 (U/ L) Final Bilirubin, Total 04/08/2023 10:03:36 0.4 <=1 .2 (mg/dL) Final Calcium 04/08/2023 10:03:36 9.7 8.4-10.2 ( mg/dL) Final Protein 04/08/2023 10:03:36 7.8 6.0-8.3 (g /dL) Final ALT (Alanine aminotransferase) 04/08/2023 10:03:36 7 Below low normal 10-50 (U/L) Final Performing Location [facility] [address] [place] [address]
--- OUTSIDE RECORDS SUMMARY | 2023-04-27 17:07 | External Medical Summary | Summary of Care ---
Author Name Unknown Organization [facility] Address [address] [place] [address] Phone [phone] Care Team Providers Care Power Crane Operator Name Role Phone Alida Aceves MD Primary Care Provider Reason for Visit * Reason Comments Chemotherapy C1D22 Cisplatin * Episode Based Medications (Routine) - Authorized Specialty Diagnoses / Procedures Referred By Contac t Referred To Contact Diagnoses Encounter for antineoplastic chemotherapy Cancer of base of tongue (HCC) Procedures [place] CISPLATIN 10 MG INJECTION UT FOSAPREPITANT INJECTION [place] INJ., APREPITANT, 1 MG Tevin Kenney MD 200 [facility] [place] [address] Anc Hem/Onc [facility] Patti [address] [place] [phone] Referral ID Status Reason Start Date Expiration Date V isits Requested Visits Authorized [id number] Authorized 03/13/2023 03/13/2024 999 99 Encounter Details Date Type Department Care Team (Latest Contact Info) Description 03/06/2023 8:45 AM EST Hem/Onc Treatment Hematology/Oncolog y Treatment, [address] [address] Patti, Chair 4 Hem Onc [address] [place] [address] Encounter for antineoplastic chemotherapy*; Cancer of base of tongue (HCC) Allergies No known active allergiesdocumented as of this encounter (statuses as of 04/03/2023) Medications Medication Sig Dispensed Refills Start Date End Date Status Nystatin 377451 UNIT/ML Mouth/Throat Suspension Swish and swallow 5 [...] directed through feeding tube via bolus syringe. 12322 mL 11 01/10/2023 Active Additional Information Patient [...] help. Patient had been prescribed oxycodone by [facility] but says this does not help. [...] in place, using the feeding discussed with Research Manager per their recommendations Nausea/Vomiting no Diarrhea no [...] PM EST [facility], [facility] 132 [facility] [place] [address] Carissa Thomas RN [address] [place] [address] 04/08/2023 9:10 AM EST Laboratory Laboratory [place] [address] [place] [phone] [place], Lab Scenery [address] [place] [address] 04/08/2023 10:00 AM EST Hem/Onc Treatment Hematology/Oncology Treatment, [place] [address] [place] [phone] Park, Chair 6 Hem Onc [address] [place] [address] 04/10/2023 9:15 AM EST Imaging Radiology [address], [place] [address] [place] [address] 04/17/2023 9:30 AM EST Telemedicine [facility], [place] [address] [place] [address] Andreia Horner PA-C [address] [place] [address] Anabel Hubbard, Community Health Animal Nutritionist [address] [place] [address] 04/28/2023 9:00 AM EDT Office Visit [facility] [address] [place] [address] Alida Aceves MD [address] [place], [place] [phone] 05/29/2023 8:15 AM EDT Office Visit Hematology/Oncology [facility] [place] 200 [facility] [place] [address] Tevin Kenney MD 200 [facility] [place] [address] 07/02/2023 3:20 PM EDT Office Visit Pulmonary Medicine Brea Null [address] [place] [address] Felipe Hernandez MD [address] [place] [phone] Health Maintenance Due Date Last Done Comments [...] mL/hr documented in this encounter Care Teams Power Crane Operator Relationship Specialty Start Date End Date Alida Aceves MD [address] [place] [address] PCP - General Internal Medicine 08/15/22 documented as of this encounter
--- OUTSIDE RECORDS SUMMARY | 2023-04-27 17:07 | External Medical Summary ---
Author Name Unknown Address Unknown Organization [facility] [place] [address] Laboratory Report Ordering Provider Test Date Status MAULIK KANG 04/08/2023 10:03:36 Final Observation Date Value Abnormality Reference (Units ) Status Magnesium 04/08/2023 10:03:36 2.0 1.5-2.6 (m g/dL) Final Performing Location [facility] [place] [address]
--- OUTSIDE RECORDS SUMMARY | 2023-04-27 17:07 | External Medical Summary | Summary of Care ---
Author Name Unknown Organization [facility] Address [address] [place] [address] Phone [phone] Care Team Providers Care Brick Veneer Maker Name Role Phone Alida Aceves MD Primary Care Provider [phone] Reason for Visit * Reason Comments Chemotherapy Cisplatin D1C1 * Episode Based Medications (Routine) - Authorized Specialty Diagnoses / Procedures Referred By Contac t Referred To Contact Diagnoses Encounter for antineoplastic chemotherapy Cancer of base of tongue (HCC) Procedures [place] CISPLATIN 10 MG INJECTION MN FOSAPREPITANT INJECTION MN INJ., APREPITANT, 1 MG Tevin Kenney MD 200 [place] [address] Anc Hem/Onc [address] [address] Referral ID Status Reason Start Date Expiration Date V isits Requested Visits Authorized [id number] Authorized 03/13/2023 03/13/2024 999 [id number] Encounter Details Date Type Department Care Team (Latest Contact Info) Description 02/13/2023 8:45 AM EST Hem/Onc Treatment Hematology/Oncolog y Treatment, [address] [address] Patti, Chair 5 Hem Onc [address] [place] [address] Encounter for antineoplastic chemotherapy*; Cancer of base of tongue (HCC) Allergies No known active allergiesdocumented as of this encounter (statuses as of 04/07/2023) Medications Medication Sig Dispensed Refills Start Date End Date Status Nystatin 441651 UNIT/ML Mouth/Throat Suspension Swish and swallow 5 [...] directed through feeding tube via bolus syringe. 63243 mL 11 01/10/2023 Active Additional Information Patient [...] Laboratory Scenery [facility] [address] [place] [phone] Patti, Lab Scenery [address] [place] [address] 04/08/2023 10:00 AM EST Hem/Onc Treatment Hematology/Oncology Treatment, [place] [address] [place] [phone] Patti, Chair 6 Hem Onc Scenery [address] [place] [address] 04/10/2023 9:15 AM EST Imaging Radiology [address], [place] 132 [facility] [place] [address] 04/17/2023 9:30 AM EST [facility]medicine [facility], [facility] [address] [place] [address] Andreia Horner, PA-C [address] [place] [address] Anabel Hubbard, Community Health Motor Coach Bus Driver [address] [place] [address] 04/28/2023 9:00 AM EDT Office Visit [facility] [address] [place] [phone] Alida Aceves MD [address] [place] [address] 05/07/2023 10:00 AM EDT [facility] Visit [facility] [place], [facility] 132 [facility] [place] [address] Carissa Thomas, RN [address] [place] [address] 05/29/2023 8:15 AM EDT Office Visit Hematology/Oncology Cedrick Armstrong [place] 200 [facility] [place] [phone] Tevin Kenney MD 200 [facility] [place] [address] 07/02/2023 3:20 PM EDT Office Visit Pulmonary Medicine Brea Null [address] [place] [phone] Felipe Hernandez MD [address] [place] [address] Health Maintenance Due Date Last Done Comments [...] mg documented in this encounter Care Teams Brick Veneer Maker Relationship Specialty Start Date End Date Alida Aceves MD [address] [place] [address] PCP - General Internal Medicine 08/15/22 documented as of this encounter
--- OUTSIDE RECORDS SUMMARY | 2023-04-27 17:07 | External Medical Summary | Summary of Care ---
Author Name Unknown Organization [facility] Address [address] [place] [address] Phone [phone] Care Team Providers Care Marine Design Engineer Name Role Phone Alida Aceves MD Primary Care Provider [phone] Reason for Visit * Reason Comments Chemotherapy Cisplatin D1C1 * Episode Based Medications (Routine) - Authorized Specialty Diagnoses / Procedures Referred By Contac t Referred To Contact Diagnoses Encounter for antineoplastic chemotherapy Cancer of base of tongue (HCC) Procedures [place] CISPLATIN 10 MG INJECTION [place] FOSAPREPITANT INJECTION [place] INJ., APREPITANT, 1 MG Tevin Kenney MD 200 [facility] [place] [address] Anc Hem/Onc [address] [address] Referral ID Status Reason Start Date Expiration Date V isits Requested Visits Authorized [id number] Authorized 03/13/2023 03/13/2024 999 99 Encounter Details Date Type Department Care Team (Latest Contact Info) Description 02/13/2023 8:45 AM EST Hem/Onc Treatment Hematology/Oncolog y Treatment, [address] [address] Patti, Chair 5 Hem Onc [address] [place] [address] Encounter for antineoplastic chemotherapy*; Cancer of base of tongue (HCC) Allergies No known active allergiesdocumented as of this encounter (statuses as of 04/07/2023) Medications Medication Sig Dispensed Refills Start Date End Date Status Nystatin 088942 UNIT/ML Mouth/Throat Suspension Swish and swallow 5 [...] directed through feeding tube via bolus syringe. 84725 mL 11 01/10/2023 Active Additional Information Patient [...] 04/08/2023 9:10 AM EST Laboratory Laboratory Scenery [facility] [address] [place] [phone] Patti, Lab Scenery [address] [place] [address] 04/08/2023 10:00 AM EST Hem/Onc Treatment Hematology/Oncology Treatment, [place] [address] [place] [phone] Patti, Chair 6 Hem Onc Scenery [address] [place] [address] 04/10/2023 9:15 AM EST Imaging Radiology [address], [place] 132 [facility] [place] [address] 04/17/2023 9:30 AM EST Telemedicine [facility], [facility] [address] [place] [address] Andreia Horner, PA-C [address] [place] [address] Anabel Hubbard, Community Health Sample Puller [address] [place] [address] 04/28/2023 9:00 AM EDT Office Visit Located Within [facility] [address] [place] [phone] Alida Aceves MD [address] [place] [address] 05/07/2023 10:00 AM EDT [facility] Visit [facility] [place], [facility] 132 [facility] [place] [address] Carissa Thomas, RN [address] [place] [address] 05/29/2023 8:15 AM EDT Office Visit Hematology/Oncology Cedrick Armstrong [place] 200 [facility] [place] [phone] Tevin Kenney MD 200 [facility] [place] [address] 07/02/2023 3:20 PM EDT Office Visit Pulmonary Medicine Brea Null [address] [place] [phone] Felipe Hernandez MD [address] [place] [address] Health Maintenance Due Date Last Done Comments [...] mg documented in this encounter Care Teams Marine Design Engineer Relationship Specialty Start Date End Date Alida Aceves MD [address] [place] [address] PCP - General Internal Medicine 08/15/22 documented as of this encounter
--- OUTSIDE RECORDS SUMMARY | 2023-04-27 17:07 | External Medical Summary | Summary of Care ---
Author Name Unknown Organization [facility] Address [address] [place] [address] Phone [phone] Care Team Providers Care Motors And Controls Tester Name Role Phone Alida Aceves MD Primary Care Provider [phone] Reason for Visit * Reason Comments Chemotherapy C1/D8 - Cisplatin * Episode Based Medications (Routine) - Authorized Specialty Diagnoses / Procedures Referred By Contac t Referred To Contact Diagnoses Encounter for antineoplastic chemotherapy Cancer of base of tongue (HCC) Procedures MN CISPLATIN 10 MG INJECTION MN FOSAPREPITANT INJECTION MN INJ., APREPITANT, 1 MG Tevin Kenney MD 200 [facility] [place] [address] Anc Hem/Onc [address] [address] Referral ID Status Reason Start Date Expiration Date V isits Requested Visits Authorized [id number] Authorized 03/13/2023 03/13/2024 999 99 Encounter Details Date Type Department Care Team (Latest Contact Info) Description 02/20/2023 8:45 AM EST Hem/Onc Treatment Hematology/Oncolog y Treatment, [address] [address] Patti, Chair 1 Hem Onc [address] [place] [address] Encounter for antineoplastic chemotherapy*; Cancer of base of tongue (HCC) Allergies No known active allergiesdocumented as of this encounter (statuses as of 04/08/2023) Medications Medication Sig Dispensed Refills Start Date End Date Status Nystatin 330511 UNIT/ML Mouth/Throat Suspension Swish and swallow 5 [...] directed through feeding tube via bolus syringe. 75264 mL 11 01/10/2023 Active Additional Information Patient [...] 9:10 AM EST Laboratory Laboratory Scene Patti [place] [address] [place] [phone] Patti, Lab Scenery [address] [place] [address] 04/08/2023 10:00 AM EST Hem/Onc Treatment Hematology/Oncology Treatment, [place] [address] [place] [address] Patti, Chair 6 Hem Onc Scenery [address] [place] [address] 04/10/2023 9:15 AM EST Imaging Radiology [address], [place] 132 [facility] [place] [address] 04/17/2023 9:30 AM EST Telemedicine [facility], [facility] [address] [place] [address] Andreia Horner PA-C [address] [place] [address] Anabel Hubbard, Community Health Larriman Helper [address] [place] [address] 04/28/2023 9:00 AM EDT Office Visit [facility] [address] [place] [phone] Alida Aceves MD [address] [place] [address] 05/07/2023 10:00 AM EDT [facility] Visit [facility], [facility] 132 [facility] [place] [address] Carissa Thomas RN 132 [facility] [place] [address] 05/29/2023 8:15 AM EDT Office Visit Hematology/Oncology [facility]atti [place] [address] [place] [phone] Tevin Kenney MD 200 [place] [address] 07/02/2023 3:20 PM EDT Office Visit Pulmonary Medicine Brea Null [address] [place] [phone] Felipe Hernandez MD [address] [place] [address] Health Maintenance Due Date Last Done Comments [...] mL/hr documented in this encounter Care Teams Motors And Controls Tester Relationship Specialty Start Date End Date Alida Aceves MD [address] [facility] [place] [address] PCP - General Internal Medicine 08/15/22 documented as of this encounter
--- OUTSIDE RECORDS SUMMARY | 2023-04-27 17:07 | External Medical Summary | Summary of Care ---
Author Name Unknown Organization [facility] Address [address] [place] [address] Phone [phone] Care Team Providers Care Ramp Agent Name Role Phone Alida Aceves MD Primary Care Provider [phone] Reason for Visit * Reason Comments Chemotherapy Cisplatin D1C1 * Episode Based Medications (Routine) - Authorized Specialty Diagnoses / Procedures Referred By Contac t Referred To Contact Diagnoses Encounter for antineoplastic chemotherapy Cancer of base of tongue (HCC) Procedures [place] CISPLATIN 10 MG INJECTION [place] FOSAPREPITANT INJECTION [place] INJ., APREPITANT, 1 MG Tevin Kenney MD 200 [place] [address] Anc Hem/Onc [address] [address] Referral ID Status Reason Start Date Expiration Date V isits Requested Visits Authorized [id number] Authorized 03/13/2023 03/13/2024 999 99 Encounter Details Date Type Department Care Team (Latest Contact Info) Description 02/13/2023 8:45 AM EST Hem/Onc Treatment Hematology/Oncolog y Treatment, [address] [address] Patti, Chair 5 Hem On[address] [place] [address] Encounter for antineoplastic chemotherapy*; Cancer of base of tongue (HCC) Allergies No known active allergiesdocumented as of this encounter (statuses as of 04/07/2023) Medications Medication Sig Dispensed Refills Start Date End Date Status Nystatin 361601 UNIT/ML Mouth/Throat Suspension Swish and swallow 5 [...] directed through feeding tube via bolus syringe. 71800 mL 11 01/10/2023 Active Additional Information Patient [...] AM EST Laboratory Laboratory Scenery [facility] [address] [place] [phone] Patti, Lab Scenery [address] [place] [address] 04/08/2023 10:00 AM EST Hem/Onc Treatment Hematology/Oncology Treatment, [place] [address] [place] [address] Patti, Chair 6 Hem Onc Scenery [address] [place] [address] 04/10/2023 9:15 AM EST Imaging Radiology [address], [place] 132 [facility] [place] [address] 04/17/2023 9:30 AM EST Telemedicine [facility], [facility] [address] [place] [address] Andreia Horner, PA-C [address] [place] [address] Anabel Hubbard, Community Health Habitat Biologist [address] [place] [address] 04/28/2023 9:00 AM EDT Office Visit [facility] [address] [place] [phone] Alida Aceves MD [address] [place] [address] 05/07/2023 10:00 AM EDT [facility] Visit [facility] [place], [facility] 132 [facility] [place] [address] Carissa Thomas, RN [address] [place] [address] 05/29/2023 8:15 AM EDT Office Visit Hematology/Oncology Cedrick Armstrong [place] 200 [facility] [place] [phone] Tevin Kenney MD 200 [facility] [place] [address] 07/02/2023 3:20 PM EDT Office Visit Pulmonary Medicine Brea Null [address] [place] [phone] Felipe Hernandez MD [address] [place] [address] Health Maintenance Due Date Last Done Comments [...] mg documented in this encounter Care Teams Ramp Agent Relationship Specialty Start Date End Date Alida Aceves MD [address] [place] [address] PCP - General Internal Medicine 08/15/22 documented as of this encounter
--- OUTSIDE RECORDS SUMMARY | 2023-04-27 17:08 | External Medical Summary | Summary of Care ---
Author Name Unknown Organization [facility] Address [address] [place] [address] Phone [phone] Care Team Providers Care Structural Steel Fitter Name Role Phone Alida Aceves MD Primary Care Provider [phone] Reason for Visit * Reason Comments Chemotherapy Cisplatin. * Episode Based Medications (Routine) - Authorized Specialty Diagnoses / Procedures Referred By Contac t Referred To Contact Diagnoses Encounter for antineoplastic chemotherapy Cancer of base of tongue (HCC) Procedures [place] CISPLATIN 10 MG INJECTION GA FOSAPREPITANT INJECTION [place] INJ., APREPITANT, 1 MG Tevin Kenney MD 200 [facility] [place] [address] Anc Hem/Onc [address] [address] Referral ID Status Reason Start Date Expiration Date V isits Requested Visits Authorized [id number] Authorized 03/13/2023 03/13/2024 999 99 Encounter Details Date Type Department Care Team (Latest Contact Info) Description 02/27/2023 8:45 AM EST Hem/Onc Treatment Hematology/Oncolog y Treatment, [address] [address] Patti, Chair 2 Hem Onc [address] [place] [address] Encounter for antineoplastic chemotherapy*; Cancer of base of tongue (HCC) Allergies No known active allergiesdocumented as of this encounter (statuses as of 04/02/2023) Medications Medication Sig Dispensed Refills Start Date End Date Status Nystatin 151737 UNIT/ML Mouth/Throat Suspension Swish and swallow 5 [...] directed through feeding tube via bolus syringe. 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 Possible barriers to meeting goals: Fall risl d/t ambulation with IV pole. Stability of [...] stable condition. * Marietta Kiran RN - 02/27/2023 9:15 AM EST Chair 7. Patient arrived for cisplatin treatment. Patient was seen by Dr. Kenney today (see visit notes). PerDr. Kenney patient good for treatment today. PIV established. Safety and Risk for Injury Patient will remain free from injury. Ensure appropriate safety devices are available. Provide and maintain safe environment. documented in this encounter Plan of Treatment Upcoming Encounters Date Type Department Care Team (Late st Contact Info) Description 04/07/2023 2:00 PM EST [facility] Visit [facility] [place], [facility] 132 [facility] [place] [address] Carissa Thomas RN 132 [facility] [place] [address] 04/08/2023 9:10 AM EST Laboratory Laboratory Scenery [facility] [address] [place] [phone] [place], Lab Scenery [address] [place] [address] 04/08/2023 10:00 AM EST Hem/Onc Treatment Hematology/Oncology Treatment, [place] [address] [place] [phone] Patti, Chair 6 Hem Onc Scenery [address] [place] [address] 04/10/2023 9:15 AM EST Imaging Radiology [address], [place] [address] [facility] [place] [address] 04/17/2023 9:30 AM EST Telemedicine [facility] [place] [address] [place] [address] Andreia Horner PA-C [address] [place] [address] Anabel Hubbard, Community Health Hospital Director [address] [place] [address] 04/28/2023 9:00 AM EDT Office Visit [facility] [address] [place] [address] Alida Aceves MD [address] [place] [address] 05/29/2023 8:15 AM EDT Office Visit Hematology/Oncology [facility] 200 [place] [phone] Tevin Kenney MD 200 [place] [address] 07/02/2023 3:20 PM EDT Office Visit Pulmonary Medicine [place] Maria Isabel [place] [place] [phone] Felipe Hernandez MD [address] [place] [address] Health Maintenance Due Date Last Done Comments Pneumococcal Vaccine: Pediatrics (0 to 5 Years) and At-Risk Patients (6 to 64 Years) (1 of 2 - PCV) 08/06/1965 Depression Screening 1971 Zoster Vaccines (1 of 2) 08/06/1978 Cologuard 08/06/2004 Colonoscopy 08/06/2004 Colorectal Cancer Screening 08/06/2004 Fecal Occult Blood Test 08/06/2004 Sigmoidoscopy 08/06/2004 DTaP,Tdap,and Td Vaccines (2 - Td or Tdap) 02/10/2015 02/10/2005 COVID-19 Vaccine (3 - 2022-2 4 season) 2022 01/18/2021, 05/19/2020 Influenza Vaccine (FLU shot) (#1) 2022 DISCUSS TOBACCO CESSATION (REFER TO SMARTSET #4191) 10/16/2023 10/15/2022 O2 ASSESSMENT COMPLETED IN PAST [...] therapy only., ONCE, 1 dose, On Liz 02/27/23 at 1030 Start Infusion 02/27/2023 11:08 AM EST 68 mg 250 mL/hr Fosaprepitant Dimeglumine (Emend) 150 mg, ondansetron (Zofran) 16 mg, dexamethasone sodium phosphate 12 mg in NSS 250 mL Infusion 150 mg, IV Piggyback, ONCE, 1 dose, On Liz 02/27/23 at 1000, Administer over 30 Minutes, Give 30 minutes prior to chemotherapy. Infuse over 30 minutes. Start Infusion 02/27/2023 10:16 AM EST 150 mg 500 mL/hr Furosemide (Lasix) inj 20 mg 20 mg, IV Push, ONCE, On Liz 02/27/23 at 0930, For 1 dose Given 02/27/2023 12:14 PM EST 20 mg NSS 1,000 mL with magnesium sulfate 1 g, potassium chloride 20 mEq infusion Intravenous, at 500 mL/hr Administer over 2 Hours, Post-cisplatin hydration, ONCE, 1 dose, On Liz 02/27/23 at 1130 Given 02/27/2023 12:14 PM EST 500 mL/hr NSS infusion 1,000 mL, Intravenous, at 500 mL/hr Administer over 2 Hours, Pre-cisplatin hydration, CONTINUOUS, Starting on Liz 02/27/23 at 0930, Until Liz 02/27/23 at 1129 Start Infusion 02/27/2023 8:45 AM EST 1,000 mL 500 mL/hr documented in this encounter Care Teams Structural Steel Fitter Relationship Specialty Start Date End Date Alida Aceves MD [address] [facility] [place] [address] PCP - General Internal Medicine 08/15/22 documented as of this encounter
--- OUTSIDE RECORDS SUMMARY | 2023-04-27 17:08 | External Medical Summary | Summary of Care ---
Author Name Unknown Organization [facility] Address [address] [place] [address] Phone [phone] Care Team Providers Care Graphotype Operator Name Role Phone Alida Aceves MD Primary Care Provider [phone] Reason for Visit * Reason Comments Chemotherapy Cisplatin. * Episode Based Medications (Routine) - Authorized Specialty Diagnoses / Procedures Referred By Contac t Referred To Contact Diagnoses Encounter for antineoplastic chemotherapy Cancer of base of tongue (HCC) Procedures [place] CISPLATIN 10 MG INJECTION [place] FOSAPREPITANT INJECTION [place] INJ., APREPITANT, 1 MG Tevin Kenney MD 200 [facility] [place] [address] Anc Hem/Onc [address] [address] Referral ID Status Reason Start Date Expiration Date V isits Requested Visits Authorized [id number] Authorized 03/13/2023 03/13/[phone] Encounter Details Date Type Department Care Team (Latest Contact Info) Description 02/27/2023 8:45 AM EST Hem/Onc Treatment Hematology/Oncolog y Treatment, [address] [address] Patti, Chair 2 Hem Onc [address] [place] [address] Encounter for antineoplastic chemotherapy*; Cancer of base of tongue (HCC) Allergies No known active allergiesdocumented as of this encounter (statuses as of 04/02/2023) Medications Medication Sig Dispensed Refills Start Date End Date Status Nystatin 762934 UNIT/ML Mouth/Throat Suspension Swish and swallow 5 [...] directed through feeding tube via bolus syringe. 11404 mL 11 01/10/2023 Active Additional Information Patient [...] 2:00 PM EST Home Visit [facility] [place], [facility] 132 [facility] [place] [address] Carissa Thomas RN 132 [facility] [place] [address] 04/08/2023 9:10 AM EST Laboratory Laboratory Scenery [facility] [address] [place] [phone] [place], Lab Scenery [address] [place] [address] 04/08/2023 10:00 AM EST Hem/Onc Treatment Hematology/Oncology Treatment, [place] [address] [place] [phone] Patti, Chair 6 Hem Onc Scenery [address] [place] [address] 04/10/2023 9:15 AM EST Imaging Radiology [address], [place] [address] [facility] [place] [address] 04/17/2023 9:30 AM EST [facility]medicine [facility] [place] [address] [place] [address] Andreia Horner PA-C [address] [place] [address] Anabel Hubbard, Community Health Field Checker [address] [place] [address] 04/28/2023 9:00 AM EDT Office Visit [facility] [address] [place] [address] Alida Aceves MD [address] [place] [address] 05/29/2023 8:15 AM EDT Office Visit Hematology/Oncology [facility] 200 [place] [phone] Tevin Kenney MD 200 [place] [address] 07/02/2023 3:20 PM EDT Office Visit Pulmonary Medicine [place] Maria Isabel [place] [address] [place] [phone] Felipe Hernandez MD [address] [place] [address] Health Maintenance Due Date Last Done Comments [...] 2022 DISCUSS TOBACCO CESSATION (REFER TO SMARTSET #1841) 10/16/2023 10/15/2022 O2 ASSESSMENT COMPLETED IN PAST [...] mL/hr documented in this encounter Care Teams Graphotype Operator Relationship Specialty Start Date End Date Alida Aceves MD [address] [facility] [place] [address] PCP - General Internal Medicine 08/15/22 documented as of this encounter
--- OUTSIDE RECORDS SUMMARY | 2023-04-27 17:08 | External Medical Summary | Summary of Care ---
Author Name Unknown Organization [facility] Address [address] [place] [address] Phone [phone] Care Team Providers Care Coal Hauler Name Role Phone Alida Aceves MD Primary Care Provider [phone] Reason for Visit * Reason Comments Chemotherapy Cisplatin. * Episode Based Medications (Routine) - Authorized Specialty Diagnoses / Procedures Referred By Contac t Referred To Contact Diagnoses Encounter for antineoplastic chemotherapy Cancer of base of tongue (HCC) Procedures [place] CISPLATIN 10 MG INJECTION WA FOSAPREPITANT INJECTION [place] INJ., APREPITANT, 1 MG Tevin Kenney MD 200 [facility] [address] Anc Hem/Onc [address] [address] Referral ID Status Reason Start Date Expiration Date V isits Requested Visits Authorized [id number] Authorized 03/13/2023 03/13/2024 999 [id number] Encounter Details Date Type Department Care Team (Latest Contact Info) Description 02/27/2023 8:45 AM EST Hem/Onc Treatment Hematology/Oncolog y Treatment, [address] [address] Patti, Chair 2 Hem Onc [address] [place] [address] Encounter for antineoplastic chemotherapy*; Cancer of base of tongue (HCC) Allergies No known active allergiesdocumented as of this encounter (statuses as of 04/02/2023) Medications Medication Sig Dispensed Refills Start Date End Date Status Nystatin 724831 UNIT/ML Mouth/Throat Suspension Swish and swallow 5 [...] directed through feeding tube via bolus syringe. 96721 mL 11 01/10/2023 Active Additional Information Patient [...] 2:00 PM EST Home Visit [place] at [place], [facility] 132 [facility] [place] [address] Carissa Thomas RN 132 [facility] [place] [address] 04/08/2023 9:10 AM EST Laboratory Laboratory Scenery [facility] [address] [place] [phone] [place], Lab Scenery [address] [place] [address] 04/08/2023 10:00 AM EST Hem/Onc Treatment Hematology/Oncology Treatment, [place] [address] [place] [phone] Patti, Chair 6 Hem Onc Scenery [address] [place] [address] 04/10/2023 9:15 AM EST Imaging Radiology [address], [place] [address] [facility] [place] [address] 04/17/2023 9:30 AM EST Telemedicine [facility] [place] [address] [place] [address] Andreia Horner PA-C [address] [place] [address] Anabel Hubbard, Community Health Litigation Partner [address] [place] [address] 04/28/2023 9:00 AM EDT Office Visit [facility] [address] [place] [address] Alida Aceves MD [address] [place] [address] 05/29/2023 8:15 AM EDT Office Visit Hematology/Oncology [facility] 200 [place] [address] Tevin Kenney MD 200 [place] [address] 07/02/2023 3:20 PM EDT Office Visit Pulmonary Medicine [place] Maria [place] [address] [place] [phone] Felipe Hernandez MD [address] [place] [address] Health Maintenance Due Date Last Done Comments [...] 2022 DISCUSS TOBACCO CESSATION (REFER TO SMARTSET #6251) 10/16/2023 10/15/2022 O2 ASSESSMENT COMPLETED IN PAST [...] mL/hr documented in this encounter Care Teams Coal Hauler Relationship Specialty Start Date End Date Alida Aceves MD [address] [facility] [address] PCP - General Internal Medicine 08/15/22 documented as of this encounter
--- OUTSIDE RECORDS SUMMARY | 2023-04-27 17:08 | External Medical Summary | Summary of Care ---
Author Name Unknown Organization [facility] Address [address] [place] [address] Phone [phone] Care Team Providers Care Laboratory Specialist Name Role Phone Alida Aceves MD Primary Care Provider [phone] Reason for Visit * Reason Comments Chemotherapy C1D22 Cisplatin * Episode Based Medications (Routine) - Authorized Specialty Diagnoses / Procedures Referred By Contac t Referred To Contact Diagnoses Encounter for antineoplastic chemotherapy Cancer of base of tongue (HCC) Procedures [place] CISPLATIN 10 MG INJECTION [place] FOSAPREPITANT INJECTION [place] INJ., APREPITANT, 1 MG Tevin Kenney MD 200 [facility] [place] [address] Anc Hem/Onc [facility] Patti [address] [place] [phone] Referral ID Status Reason Start Date Expiration Date V isits Requested Visits Authorized [id number] Authorized 03/13/2023 03/13/2024 999 99 Encounter Details Date Type Department Care Team (Latest Contact Info) Description 03/06/2023 8:45 AM EST Hem/Onc Treatment Hematology/Oncolog y Treatment, [address] [address] Patti, Chair 4 Hem Onc [address] [place] [address] Encounter for antineoplastic chemotherapy*; Cancer of base of tongue (HCC) Allergies No known active allergiesdocumented as of this encounter (statuses as of 04/02/2023) Medications Medication Sig Dispensed Refills Start Date End Date Status Nystatin 559210 UNIT/ML Mouth/Throat Suspension Swish and swallow 5 [...] directed through feeding tube via bolus syringe. 17177 mL 11 01/10/2023 Active Additional Information Patient [...] help. Patient had been prescribed oxycodone by [facility] but says this does not help. Patient [...] in place, using the feeding discussed with Director Product per their recommendations Nausea/Vomiting no Diarrhea no [...] Care Team (Late st Contact Info) Description 04/04/2023 11:20 AM EST Office Visit Nutrition & Weight Management, [facility] [address] [place] [address] Penelope Celaya PA-C [address] [place] [address] 04/07/2023 2:00 PM EST [facility] Visit [facility] [place], [facility] [address] [place] [address] Carissa Thomas RN [address] [place] [address] 04/08/2023 9:10 AM EST Laboratory Laboratory [facility] Patti [place] [address] [place], [place] [address] Patti, Lab Scenery [address] [place], [place] [address] 04/08/2023 10:00 AM EST Hem/Onc Treatment Hematology/Oncology Treatment, [place] [address] [place], [place] [phone] Patti, Chair 6 Hem Onc Scenery [address] [place], [place] [address] 04/10/2023 9:15 AM EST Imaging Radiology [facility] 1st [facility], [place] [facility] [address] 04/17/2023 9:30 AM EST Telemedicine [facility], [place] [address] [place] [address] Andreia Horner PA-C [address] [place] [address] Anabel Hubbard, Community Health Interface Analyst [address] [place] [address] 04/28/2023 9:00 AM EDT Office Visit [facility] [address] [place] [phone] Alida Aceves MD [address] [place] [address] 05/29/2023 8:15 AM EDT Office Visit Hematology/Oncology [facility] Patti [place] [address] [place], [place] [phone] Tevin Kenney MD [address] [place] [address] 07/02/2023 3:20 PM EDT Office Visit Pulmonary Medicine [place] [address] [place] [address] Felipe Hernandez MD [address] [place] [address] Health Maintenance Due Date Last Done Comments [...] mg 20 mg, IV Push, ONCE, On Fri03/06/23 at 1000, For 1 dose Given 03/06/2023 12:07 PM EST 20 mg NSS 1,000 mL with magnesium sulfate 1 g, potassium chloride 20 mEq infusion Intravenous, at 500 mL/hr Administer over 2 Hours, Post-cisplatin hydration, ONCE, 1 dose, On Fri03/06/23 at 1200 Given 03/06/2023 12:07 PM EST 500 mL/hr NSS infusion 1,000 mL, Intravenous, at 500 mL/hr Administer over 2 Hours, Pre-cisplatin hydration, CONTINUOUS, Starting on Fri03/06/23 at 1000, Until Fri03/06/23 at 1159 Start Infusion 03/06/2023 9:05 AM EST 1,000 mL 500 mL/hr documented in this encounter Care Teams Laboratory Specialist Relationship Specialty Start Date End Date Alida Aceves MD 8[address] [place] [facility] [place] [address] PCP - General Internal Medicine 08/15/22 documented as of this encounter
--- OUTSIDE RECORDS SUMMARY | 2023-04-27 17:08 | External Medical Summary | Summary of Care ---
Author Name Unknown Organization [facility] Address [address] [place] [address] Phone [phone] Care Team Providers Care Cnc Laser Operator Name Role Phone Alida Aceves MD Primary Care Provider [phone] Reason for Visit * Reason Comments Chemotherapy Cisplatin. * Episode Based Medications (Routine) - Authorized Specialty Diagnoses / Procedures Referred By Contac t Referred To Contact Diagnoses Encounter for antineoplastic chemotherapy Cancer of base of tongue (HCC) Procedures [place] CISPLATIN 10 MG INJECTION AL FOSAPREPITANT INJECTION AL INJ., APREPITANT, 1 MG Tevin Kenney MD 200 [facility] [place] [address] Anc Hem/Onc [address] [address] Referral ID Status Reason Start Date Expiration Date V isits Requested Visits Authorized [id number] Authorized 03/13/2023 03/13/2024 999 99 Encounter Details Date Type Department Care Team (Latest Contact Info) Description 02/27/2023 8:45 AM EST Hem/Onc Treatment Hematology/Oncolog y Treatment, [address] [address] Patti, Chair 2 Hem Onc [address] [place] [address] Encounter for antineoplastic chemotherapy*; Cancer of base of tongue (HCC) Allergies No known active allergiesdocumented as of this encounter (statuses as of 04/02/2023) Medications Medication Sig Dispensed Refills Start Date End Date Status Nystatin 042428 UNIT/ML Mouth/Throat Suspension Swish and swallow 5 [...] directed through feeding tube via bolus syringe. 69462 mL 11 01/10/2023 Active Additional Information Patient [...] 2:00 PM EST Home Visit isinger at [place], [facility] 132 [facility] [place] [address] Carissa Thomas RN 132 [facility] [place] [address] 04/08/2023 9:10 AM EST Laboratory Laboratory Scenery [facility] [address] [place] [phone] [place], Lab Scenery [address] [place] [address] 04/08/2023 10:00 AM EST Hem/Onc Treatment Hematology/Oncology Treatment, [place] [address] [place] [phone] Patti, Chair 6 Hem Onc Scenery [address] [place] [address] 04/10/2023 9:15 AM EST Imaging Radiology [address], [place] [address] [facility] [place] [address] 04/17/2023 9:30 AM EST Telemedicine [facility] [place] [address] [place] [address] Andreia Horner PA-C [address] [place] [address] Anabel Hubbard, Community Health Tank Wagon Operator [address] [place] [address] 04/28/2023 9:00 AM EDT Office Visit [facility] [address] [place] [address] Alida Aceves MD [address] [place] [address] 05/29/2023 8:15 AM EDT Office Visit Hematology/Oncology [facility] 200 [place] [phone] Tevin Kenney MD 200 [place] [address] 07/02/2023 3:20 PM EDT Office Visit Pulmonary Medicine [place] Maria Isabel [place] [address] [place] [phone] Felipe Hernandez MD [address] [place] [address] Health Maintenance Due Date Last Done Comments [...] 2022 DISCUSS TOBACCO CESSATION (REFER TO SMARTSET #4051) 10/16/2023 10/15/2022 O2 ASSESSMENT COMPLETED IN PAST [...] mL/hr documented in this encounter Care Teams Cnc Laser Operator Relationship Specialty Start Date End Date Alida Aceves MD [address] E [facility] [place] [address] PCP - General Internal Medicine 08/15/22 documented as of this encounter
--- OUTSIDE RECORDS SUMMARY | 2023-04-27 17:08 | External Medical Summary | Summary of Care ---
Author Name Unknown Organization [facility] Address [address] [place] [address] Phone [phone] Care Team Providers Care Sash Repairer Name Role Phone Alida Aceves MD Primary Care Provider [phone] Reason for Visit * Reason Comments Chemotherapy Cisplatin. * Episode Based Medications (Routine) - Authorized Specialty Diagnoses / Procedures Referred By Contac t Referred To Contact Diagnoses Encounter for antineoplastic chemotherapy Cancer of base of tongue (HCC) Procedures [place] CISPLATIN 10 MG INJECTION SD FOSAPREPITANT INJECTION [place] INJ., APREPITANT, 1 MG Tevin Kenney MD 200 [facility] [place] [id number] Anc Hem/Onc [address] [address] Referral ID Status Reason Start Date Expiration Date V isits Requested Visits Authorized [id number] Authorized 03/13/2023 03/13/2024 999 99 Encounter Details Date Type Department Care Team (Latest Contact Info) Description 02/27/2023 8:45 AM EST Hem/Onc Treatment Hematology/Oncolog y Treatment, [address] [address] Patti, Chair 2 Hem Onc [address] [place] [address] Encounter for antineoplastic chemotherapy*; Cancer of base of tongue (HCC) Allergies No known active allergiesdocumented as of this encounter (statuses as of 04/02/2023) Medications Medication Sig Dispensed Refills Start Date End Date Status Nystatin 570056 UNIT/ML Mouth/Throat Suspension Swish and swallow 5 [...] directed through feeding tube via bolus syringe. 63476 mL 11 01/10/2023 Active Additional Information Patient [...] 2:00 PM EST Home Visit [place]inger at [place], [facility] 132 [facility] [place] [address] Carissa Thomas RN 132 [facility] [place] [address] 04/08/2023 9:10 AM EST Laboratory Laboratory Scenery [facility] [address] [place] [phone] [place], Lab Scenery [address] [place] [address] 04/08/2023 10:00 AM EST Hem/Onc Treatment Hematology/Oncology Treatment, [place] [address] [place] [phone] Patti, Chair 6 Hem Onc Scenery [address] [place] [address] 04/10/2023 9:15 AM EST Imaging Radiology [address], [place] [address] [facility] [place] [address] 04/17/2023 9:30 AM EST Telemedicine [facility] [place] [address] [place] [address] Andreia Horner PA-C [address] [place] [address] Anabel Hubbard, Community Health Interior Wirer [address] [place] [address] 04/28/2023 9:00 AM EDT Office Visit [facility] [address] [place] [address] Alida Aceves MD [address] [place] [address] 05/29/2023 8:15 AM EDT Office Visit Hematology/Oncology [facility] 200 [place] [phone] eTvin Kenney MD 200 [place] [address] 07/02/2023 3:20 PM EDT Office Visit Pulmonary Medicine [place] Maria Isabel [place] [address] [place] [address] [phone] Felipe Hernandez MD [address] [place] [address] Health Maintenance Due Date Last Done Comments [...] 2022 DISCUSS TOBACCO CESSATION (REFER TO SMARTSET #6421) 10/16/2023 10/15/2022 O2 ASSESSMENT COMPLETED IN PAST [...] mL/hr documented in this encounter Care Teams Sash Repairer Relationship Specialty Start Date End Date Alida Aceves MD 8[address] E [facility] [place] [address] PCP - General Internal Medicine 08/15/22 documented as of this encounter
--- OUTSIDE RECORDS SUMMARY | 2023-04-27 17:08 | External Medical Summary | Summary of Care ---
Author Name Unknown Organization [facility] Address [address] [place] [address] Phone [phone] Care Team Providers Care Equal Opportunity Director Name Role Phone Alida Aceves MD Primary Care Provider [phone] Reason for Visit * Reason Comments Chemotherapy Cisplatin. * Episode Based Medications (Routine) - Authorized Specialty Diagnoses / Procedures Referred By Contac t Referred To Contact Diagnoses Encounter for antineoplastic chemotherapy Cancer of base of tongue (HCC) Procedures [place] CISPLATIN 10 MG INJECTION [place] FOSAPREPITANT INJECTION [place] INJ., APREPITANT, 1 MG Tevin Kenney MD 200 [facility] [place] [address] Anc Hem/Onc [address] [address] Referral ID Status Reason Start Date Expiration Date V isits Requested Visits Authorized [id number] Authorized 03/13/2023 03/13/2024 999 99 Encounter Details Date Type Department Care Team (Latest Contact Info) Description 02/27/2023 8:45 AM EST Hem/Onc Treatment Hematology/Oncolog y Treatment, [address] [address] Patti, Chair 2 Hem Onc [address] [place] [address] Encounter for antineoplastic chemotherapy*; Cancer of base of tongue (HCC) Allergies No known active allergiesdocumented as of this encounter (statuses as of 04/02/2023) Medications Medication Sig Dispensed Refills Start Date End Date Status Nystatin 331205 UNIT/ML Mouth/Throat Suspension Swish and swallow 5 [...] directed through feeding tube via bolus syringe. 36122 mL 11 01/10/2023 Active Additional Information Patient [...] 2:00 PM EST Home Visit isinger at [place], [facility] 132 [facility] [place] [address] Carissa Thomas RN 132 [facility] [place] [address] 04/08/2023 9:10 AM EST Laboratory Laboratory Scenery [facility] [address] [place] [phone] [place], Lab Scenery [address] [place] [address] 04/08/2023 10:00 AM EST Hem/Onc Treatment Hematology/Oncology Treatment, [place] [address] [place] [phone] Patti, Chair 6 Hem Onc Scenery [address] [place] [address] 04/10/2023 9:15 AM EST Imaging Radiology [address], [place] [address] [facility] [place] [address] 04/17/2023 9:30 AM EST Telemedicine [facility] [place] [address] [place] [address] Andreia Horner PA-C [address] [place] [address] Anabel Hubbard, Community Health Printer Floor Covering Assistant [address] [place] [address] 04/28/2023 9:00 AM EDT Office Visit [facility] [address] [place] [address] Alida Aceves MD [address] [place] [address] 05/29/2023 8:15 AM EDT Office Visit Hematology/Oncology [facility] 200 [place] [address] Tevin Kenney MD 200 [place] [address] 07/02/2023 3:20 PM EDT Office Visit Pulmonary Medicine [place] Maria Isabel [place] [address] [address] [phone] Felipe Hernandez MD [address] [place] [address] Health Maintenance Due Date Last Done Comments [...] 2022 DISCUSS TOBACCO CESSATION (REFER TO SMARTSET #0801) 10/16/2023 10/15/2022 O2 ASSESSMENT COMPLETED IN PAST [...] mL/hr documented in this encounter Care Teams Equal Opportunity Director Relationship Specialty Start Date End Date Alida Aceves MD [address] [facility] [place] [address] PCP - General Internal Medicine 08/15/22 documented as of this encounter
--- OUTSIDE RECORDS SUMMARY | 2023-04-27 17:08 | External Medical Summary | Summary of Care ---
Author Name Unknown Organization [facility] Address [address] [place] [address] Phone [phone] Care Team Providers Care Roller Stainer Name Role Phone Alida Aceves MD Primary Care Provider [phone] Reason for Visit * Reason Onset Date Comments Advice 04/03/2023 advice Encounter Details Date Type Department Care Team (Late st Contact Info) Description 04/03/2023 Telephone [facility] [address] [place] [address] Alida Aceves MD [address] [place] [address] Advice (advice) Allergies No known active allergiesdocumented as of this encounter (statuses as of 04/03/2023) Medications Medication Sig Dispensed Refills Start Date End Date Status Nystatin 741802 UNIT/ML Mouth/Throat Suspension Swish and swallow 5 [...] directed through feeding tube via bolus syringe. 92441 mL 11 01/10/2023 Active Magnesium 400 MG Oral Capsule Take 1 Capsule by mouth in the morning. 0 Active Doxycycline Hyclate 100 MG Oral Tablet Take 1 Tablet by mouth in the morning and 1 Tablet before bedtime. 0 Active Cefdinir 300 MG Oral Capsule [...] MCG/ACT Inhalation Aerosol Powder Breath Activated (umeclidinium Casselberry) Inhale 1 Puff by mouth in the morning. 12 Each 3 03/28/2023 Active Albuterol Sulfate HFA 108 (90 Base) MCG/ACT Inhalation Aerosol Solution Inhale 2 Puffs by mouth every 6 hours as needed (cough, SOB). 18 g 5 03/28/2023 Active Montelukast Sodium 10 MG Oral Tablet (Singulair) Take 1 Tablet by mouth in the morning. 90 Tablet 3 03/28/2023 Active fentaNYL 12 MCG/HR Transdermal Patch 72 Hour [...] Telephone Encounter - Nancy Powell LPN - 04/03/2023 6:37 PM EST Left [facility] answering service know to notice conveyor operator nurse. * Telephone Encounter - Alida Aceves MD - 04/03/2023 5:24 PM EST Sent out fentanyl patch * Telephone Encounter - Amy Daniel LPN - 04/03/2023 3:22 PM EST Concerns Shae RN, Calling from: [facility] palliative care Report/Concerns of: pain control recommendations Symptoms: none Vitals: T98.1 P100 BP 102/64 SP O293 RA Narrative: Shae did home visit with pt to [facility] for [facility] on 04/01. She then meet with Dr Soheila Boucher head of palliative care dept with [facility] HH on 04/03. Dr Boucher recommended starting pt on fentanyl patch 12mcg q [address]. [address] Boucher will not be seeing pt and patch willneed ordered by PCP Call back [facility] intake with any questions or concerns at [phone] * Telephone Encounter - Sailaja Méndez OSA - 04/03/2023 3:18 PM EST Shae a nurse from [facility] Home Health is calling to speak with nurse regarding pt. documented in this encounter Plan of Treatment Upcoming Encounters Date Type Department Care Team (Late st Contact Info) Description 04/07/2023 2:00 PM EST [facility], [facility] [address] [place] [address] Carissa Thomas, RN [address] [place] [address] 04/08/2023 9:10 AM EST Laboratory Laboratory Scenery [facility] [address] [place] [phone] Patti, Lab Scenery [address] [place] [address] 04/08/2023 10:00 AM EST Hem/Onc Treatment Hematology/Oncology Treatment, [place] [address] [place] [phone] Patti, Chair 6 Hem Onc Scenery [address] [place] [address] 04/10/2023 9:15 AM EST Imaging Radiology [facility] 1st Floor, [place] [address] [place] [address] 04/17/2023 9:30 AM EST Telemedicine [facility], [facility] [address] [place] [address] Andreia Horner, PA-C [address] [place] [address] Anabel Hubbard, Community Health Compensation Associate [address] [place] [address] 04/28/2023 9:00 AM EDT Office Visit [place] [address] [place] [address] Alida Aceves MD [address] [place] [address] 05/29/2023 8:15 AM EDT Office Visit Hematology/Oncology [facility] [place] [address] [facility] [place] [address] Tevin Kenney MD [address] [facility] [place] [address] 07/02/2023 3:20 PM EDT Office Visit Pulmonary Medicine [place] [address] [place] [phone] Felipe Hernandez MD [address] [place] [address] Health Maintenance Due Date Last Done Comments [...] Primary Malignant neoplasm of base of tongue Immunocompromised (HCC) Unspecified immunity deficiency documented in this encounter Care Teams Roller Stainer Relationship Specialty Start Date End Date Alida Aceves MD [address] [place] [address] PCP - General Internal Medicine 08/15/22 documented as of this encounter
--- OUTSIDE RECORDS SUMMARY | 2023-04-27 17:08 | External Medical Summary | Summary of Care ---
Author Name Unknown Organization [facility] Address [address] [place] [address] Phone [phone] Care Team Providers Care Ore Dryer Name Role Phone Alida Aceves MD Primary [...] APREPITANT, 1 MG Tevin Kenney MD 200 [facility] [place] [address] Anc Hem/Onc [facility] Patti [address] [place] [phone] Referral ID Status Reason Start Date Expiration Date V isits Requested Visits Authorized [id number] Authorized 03/13/2023 03/13/2024 999 [id number] Encounter Details Date Type Department Care Team (Latest Contact Info) Description 03/06/2023 8:45 AM EST Hem/Onc Treatment Hematology/Oncolog y Treatment, [address] [address] Patti, Chair 4 Hem Onc [address] [place] [address] Encounter for antineoplastic chemotherapy*; Cancer of base of tongue (HCC) Allergies No known active allergiesdocumented as of this encounter (statuses as of 04/03/2023) Medications Medication Sig Dispensed Refills Start Date End Date Status Nystatin 326261 UNIT/ML Mouth/Throat Suspension Swish and swallow 5 [...] directed through feeding tube via bolus syringe. 70854 mL 11 01/10/2023 Active Additional Information Patient [...] help. Patient had been prescribed oxycodone by [facility] but says this does not help. Patient [...] in place, using the feeding discussed with Chemical Laboratory Chief per their recommendations Nausea/Vomiting no Diarrhea no [...] PM EST [facility] 132 [facility] [place] [address] Carissa Thomas RN [address] [place] [address] 04/08/2023 9:10 AM EST Laboratory Laboratory [place] [address] [place] [address] Park, Lab Scenery [address] [place] [address] 04/08/2023 10:00 AM EST Hem/Onc Treatment Hematology/Oncology Treatment, [place] [address] [place] [address] Park, Chair 6 Hem Onc [address] [place] [address] 04/10/2023 9:15 AM EST Imaging Radiology [address], [place] [address] [place] [address] 04/17/2023 9:30 AM EST [facility]medicine [facility], [place] [address] [place] [address] Andreia Horner PA-C [address] [place] [address] Anabel Hubbard, Community Health Patient Relations Manager [address] [place] [address] 04/28/2023 9:00 AM EDT Office Visit [facility] [address] [place] [address] Alida Aceves MD [address] [place], [place] [address] 05/29/2023 8:15 AM EDT Office Visit Hematology/Oncology [facility] [place] 200 [facility] [place] [address] Tevin Kenney MD 200 [facility] [place] [address] 07/02/2023 3:20 PM EDT Office Visit Pulmonary Medicine Brea Null [address] [place] [address] Felipe Hernandez MD [address] [place] [phone] Health Maintenance Due Date Last Done Comments [...] mL/hr documented in this encounter Care Teams Ore Dryer Relationship Specialty Start Date End Date Alida Aceves MD [address] [place] [address] PCP - General Internal Medicine 08/15/22 documented as of this encounter
--- OUTSIDE RECORDS SUMMARY | 2023-04-27 17:08 | External Medical Summary | Summary of Care ---
Author Name Unknown Organization [facility] Address [address] [place] [address] Phone [phone] Care Team Providers Care Veneer Glue Spreader Name Role Phone Alida Aceves MD Primary Care Provider [phone] Reason for Visit * Reason Comments Chemotherapy C1D22 Cisplatin * Episode Based Medications (Routine) - Authorized Specialty Diagnoses / Procedures Referred By Contac t Referred To Contact Diagnoses Encounter for antineoplastic chemotherapy Cancer of base of tongue (HCC) Procedures LA CISPLATIN 10 MG INJECTION LA FOSAPREPITANT INJECTION LA INJ., APREPITANT, 1 MG Tevin Kenney MD 200 [place] [address] Anc Hem/Onc [facility] Patti [address] [place] [phone] Referral ID Status Reason Start Date Expiration Date V isits Requested Visits Authorized [id number] Authorized 03/13/2023 03/13/2024 999 [id number] Encounter Details Date Type Department Care Team (Latest Contact Info) Description 03/06/2023 8:45 AM EST Hem/Onc Treatment Hematology/Oncolog y Treatment, [address] [address] Patti, Chair 4 Hem Onc [address] [place] [address] Encounter for antineoplastic chemotherapy*; Cancer of base of tongue (HCC) Allergies No known active allergiesdocumented as of this encounter (statuses as of 04/03/2023) Medications Medication Sig Dispensed Refills Start Date End Date Status Nystatin 982425 UNIT/ML Mouth/Throat Suspension Swish and swallow 5 [...] directed through feeding tube via bolus syringe. 85994 mL 11 01/10/2023 Active Additional Information Patient [...] help. Patient had been prescribed oxycodone by [facility] but says this does not help. [...] in place, using the feeding discussed with Mail Agent per their recommendations Nausea/Vomiting no Diarrhea no [...] EST [facility] 132 [facility] [place] [address] Carissa Thomas RN [address] [place] [address] 04/08/2023 9:10 AM EST Laboratory Laboratory [place] [address] [place] [phone] Park, Lab Scenery [address] [place] [address] 04/08/2023 10:00 AM EST Hem/Onc Treatment Hematology/Oncology Treatment, [place] [address] [place] [address] Park, Chair 6 Hem Onc [address] [place] [address] 04/10/2023 9:15 AM EST Imaging Radiology [address], [place] [address] [place] [address] 04/17/2023 9:30 AM EST Telemedicine [facility], [place] [facility] [address] [place] [address] Andreia Horner PA-C [address] [place] [address] Anabel Hubbard, Community Health Saturator Tender [address] [place] [address] 04/28/2023 9:00 AM EDT Office Visit [facility] [address] [place] [address] Alida Aceves MD [address] [place], [place] [phone] 05/29/2023 8:15 AM EDT Office Visit Hematology/Oncology [facility] [place] 200 [facility] [place] [address] Tevin Kenney MD 200 [place] [address] 07/02/2023 3:20 PM EDT Office Visit Pulmonary Medicine Brea Null [address] [place] [address] Felipe Hernandez MD [address] [place] [phone] Health Maintenance Due Date Last Done Comments [...] mL/hr documented in this encounter Care Teams Veneer Glue Spreader Relationship Specialty Start Date End Date Alida Aceves MD [address] [place] [address] PCP - General Internal Medicine 08/15/22 documented as of this encounter
--- OUTSIDE RECORDS SUMMARY | 2023-04-27 17:08 | External Medical Summary | Summary of Care ---
Author Name Unknown Organization [facility] Address [address] [place] [address] Phone [phone] Care Team Providers Care Textile Machinery Instructor Name Role Phone Alida Aceves MD Primary Care Provider [phone] Reason for Visit * Reason Onset Date Comments Advice 04/03/2023 advice Encounter Details Date Type Department Care Team (Late st Contact Info) Description 04/03/2023 Telephone [facility] [address] [place] [address] Alida Aceves MD [address] [place] [address] Advice (advice) Allergies No known active allergiesdocumented as of this encounter (statuses as of 04/03/2023) Medications Medication Sig Dispensed Refills Start Date End Date Status Nystatin 100217 UNIT/ML Mouth/Throat Suspension Swish and swallow 5 [...] directed through feeding tube via bolus syringe. 61151 mL 11 01/10/2023 Active Magnesium 400 MG [...] MCG/ACT Inhalation Aerosol Powder Breath Activated (umeclidinium [place]) Inhale 1 Puff by mouth in the [...] PM EST Concerns Shae RN, Calling from: [facility] palliative care Report/Concerns of: pain control recommendations Symptoms: none Vitals: T98.1 P100 BP 102/64 SP O293 RA Narrative: Shae did home visit with pt to [facility] for palliative care on 04/01. She then meet with Dr Soheila Boucher head of palliative care dept with [facility] HH on 04/03. Dr Boucher recommended starting pt on fentanyl patch 12mcg q [address]. [address] Boucher will not be seeing pt and patch willneed ordered by PCP Call back [facility] intake with any questions or concerns at [phone] * Telephone Encounter - Sailaja Méndez OSA - 04/03/2023 3:18 PM EST Shae vang nurse from [facility] Home Health is calling to speak with nurse regarding pt. documented in this encounter Plan of Treatment Upcoming Encounters Date Type Department Care Team (Late st Contact Info) Description 04/07/2023 2:00 PM EST Home Visit [facility] [place], [facility] [address] [place] [address] Carissa Thomas, RN [address] [place] [address] 04/08/2023 9:10 AM EST Laboratory [facility] [place] [address] [place] [phone] Park, Lab Scenery [address] [facility] [place] [address] 04/08/2023 10:00 AM EST Hem/Onc Treatment Hematology/Oncology Treatment, [place] [address] [place], [place] [address] Patti, Chair 6 Hem Onc Scenery [address] [place] [address] 04/10/2023 9:15 AM EST Imaging Radiology [address], [place] [address] [place] [address] 04/17/2023 9:30 AM EST [facility]icine [facility] [place], [place] [address] [place] [address] Andreia Horner PA-C [address] [place] [address] Anabel Hubbard, Community Health Journeyman Level Acoustic Analyst [address] [place] [address] 04/28/2023 9:00 AM EDT Office Visit [facility] [address] [place] [address] Alida Aceves MD [address] [place] [address] 05/29/2023 8:15 AM EDT Office Visit Hematology/Oncology [facility] [address] [place] [address] Tevin Kenney MD [address] [place] [address] 07/02/2023 3:20 PM EDT Office Visit Pulmonary Medicine Brea Null [address] [place] [address] Felipe Hernandez MD [address] [place] [address] Health Maintenance Due Date Last Done Comments [...] deficiency documented in this encounter Care Teams Textile Machinery Instructor Relationship Specialty Start Date End Date Alida Aceves MD [address] [place] [address] PCP - General Internal Medicine 08/15/22 documented as of this encounter
--- OUTSIDE RECORDS SUMMARY | 2023-04-27 17:08 | External Medical Summary | Summary of Care ---
Author Name Unknown Organization [facility] Address [address] [place] [address] Phone [phone] Care Team Providers Care Director Federal Name Role Phone Alida Aceves MD Primary Care Provider [phone] Reason for Visit * Reason Comments Chemotherapy Cisplatin. * Episode Based Medications (Routine) - Authorized Specialty Diagnoses / Procedures Referred By Contac t Referred To Contact Diagnoses Encounter for antineoplastic chemotherapy Cancer of base of tongue (HCC) Procedures CT CISPLATIN [address] FOSAPREPITANT INJE[address] CT INJ., APREPITANT, 1 MG Tevin Kenney MD 200 [facility] [place] [address] Anc Hem/Onc [address] [address] Referral ID Status Reason Start Date Expiration Date V isits Requested Visits Authorized [id number] Authorized 03/13/2023 03/13/2024 999 [id number] Encounter Details Date Type Department Care Team (Latest Contact Info) Description 02/27/2023 8:45 AM EST Hem/Onc Treatment Hematology/Oncolog y Treatment, [address] [address] Patti, Chair 2 Hem Onc [address] [place] [address] Encounter for antineoplastic chemotherapy*; Cancer of base of tongue (HCC) Allergies No known active allergiesdocumented as of this encounter (statuses as of 04/02/2023) Medications Medication Sig Dispensed Refills Start Date End Date Status Nystatin 427719 UNIT/ML Mouth/Throat Suspension Swish and swallow 5 [...] directed through feeding tube via bolus syringe. 74773 mL 11 01/10/2023 Active Additional Information Patient [...] 2:00 PM EST Home Visit [facility] [place], [facility] 132 [facility] [place] [address] Carissa Thomas RN 132 [facility] [place] [address] 04/08/2023 9:10 AM EST Laboratory Laboratory Scenery [facility] [address] [place] [phone] Park, Lab Scenery [address] [place] [address] 04/08/2023 10:00 AM EST Hem/Onc Treatment Hematology/Oncology Treatment, [place] [address] [place] [phone] Patti, Chair 6 Hem Onc Scenery [address] [place] [address] 04/10/2023 9:15 AM EST Imaging Radiology [address], [place] [address] [facility] [place] [address] 04/17/2023 9:30 AM EST Telemedicine [facility] [place] [address] [place] [address] Andreia Horner PA-C [address] [place] [address] Anabel Hubbard, Community Health Trace Clerk [address] [place] [address] 04/28/2023 9:00 AM EDT Office Visit [facility] [address] [place] [address] Alida Aceves MD [address] [place] [address] 05/29/2023 8:15 AM EDT Office Visit Hematology/Oncology [facility] 200 [place] [address] Tevin Kenney MD 200 [place] [address] 07/02/2023 3:20 PM EDT Office Visit Pulmonary Medicine [place] [address] [place] [phone] Felipe Hernandez MD [address] [place] [address] Health Maintenance Due Date Last Done Comments [...] 2022 DISCUSS TOBACCO CESSATION (REFER TO SMARTSET #[id number]) 10/16/2023 10/15/2022 O2 ASSESSMENT COMPLETED IN PAST [...] mL/hr documented in this encounter Care Teams Director Federal Relationship Specialty Start Date End Date Alida Aceves MD [address] [facility] [place] [address] PCP - General Internal Medicine 08/15/22 documented as of this encounter
--- OUTSIDE RECORDS SUMMARY | 2023-04-27 17:08 | External Medical Summary | Summary of Care ---
Author Name Unknown Organization [facility] Address [address] [place] [address] Phone [phone] Care Team Providers Care Wind Commissioning Technician Name Role Phone Alida Aceves MD Primary Care Provider [phone] Reason for Visit * Reason Comments Chemotherapy C1D22 Cisplatin * Episode Based Medications (Routine) - Authorized Specialty Diagnoses / Procedures Referred By Contac t Referred To Contact Diagnoses Encounter for antineoplastic chemotherapy Cancer of base of tongue (HCC) Procedures [place] CISPLATIN 10 MG INJECTION [place] FOSAPREPITANT INJECTION [place] INJ., APREPITANT, 1 MG Tevin Kenney MD 200 [facility] [address] Anc Hem/Onc [facility] Patti [address] [place] [phone] Referral ID Status Reason Start Date Expiration Date V isits Requested Visits Authorized [id number] Authorized 03/13/2023 03/13/2024 999 [id number] Encounter Details Date Type Department Care Team (Latest Contact Info) Description 03/06/2023 8:45 AM EST Hem/Onc Treatment Hematology/Oncolog y Treatment, [address] [address] Patti, Chair 4 Hem Onc [address] [place] [address] Encounter for antineoplastic chemotherapy*; Cancer of base of tongue (HCC) Allergies No known active allergiesdocumented as of this encounter (statuses as of 04/03/2023) Medications Medication Sig Dispensed Refills Start Date End Date Status Nystatin 767315 UNIT/ML Mouth/Throat Suspension Swish and swallow 5 [...] directed through feeding tube via bolus syringe. 82706 mL 11 01/10/2023 Active Additional Information Patient [...] help. Patient had been prescribed oxycodone by [facility] but says this does not [...] in place, using the feeding discussed with Consulting Psychiatrist per their recommendations Nausea/Vomiting no Diarrhea no [...] PM EST [facility], [facility] 132 [facility] [place] [address] Carissa Thomas RN [address] [place] [address] 04/08/2023 9:10 AM EST Laboratory [place] [address] [place] [address] Park, Lab Scenery [address] [place] [address] 04/08/2023 10:00 AM EST Hem/Onc Treatment Hematology/Oncology Treatment, [place] [address] [place] [address] Park, Chair 6 Hem Onc [address] [place] [address] 04/10/2023 9:15 AM EST Imaging Radiology [address], [place] [address] [place] [address] 04/17/2023 9:30 AM EST [facility]medicine [facility], [place] [facility] [address] [place] [address] Andreia Horner PA-C [address] [place] [address] Anabel Hubbard, Community Health Hide Mill Man [address] [place] [address] 04/28/2023 9:00 AM EDT Office Visit [facility] [address] [place] [address] Alida Aceves MD [address] [place], [place] [address] 05/29/2023 8:15 AM EDT Office Visit Hematology/Oncology [facility] [place] 200 [facility] [place] [address] Tevin Kenney MD 200 [facility] [address] 07/02/2023 3:20 PM EDT Office Visit Pulmonary Medicine Brea Null [address] [place] [address] Felipe Hernandez MD [address] [place] [phone] Health Maintenance Due Date Last Done Comments [...] mL/hr documented in this encounter Care Teams Wind Commissioning Technician Relationship Specialty Start Date End Date Alida Aceves MD [address] [place] [address] PCP - General Internal Medicine 08/15/22 documented as of this encounter
--- OUTSIDE RECORDS SUMMARY | 2023-04-27 17:08 | External Medical Summary | Summary of Care ---
Author Name Unknown Organization [facility] Address [address] [place] [address] Phone [phone] Care Team Providers Care Executive Wellness Programs Director Name Role Phone Alida Acevse MD Primary Care Provider [phone] Reason for Visit * Reason Comments Chemotherapy C1D22 Cisplatin * Episode Based Medications (Routine) - Authorized Specialty Diagnoses / Procedures Referred By Contac t Referred To Contact Diagnoses Encounter for antineoplastic chemotherapy Cancer of base of tongue (HCC) Procedures [place] CISPLATIN 10 MG INJECTION RI FOSAPREPITANT INJECTION RI INJ., APREPITANT, 1 MG Tevin Kenney MD 200 [facility] [place] [address] Anc Hem/Onc [facility] Patti [address] [place] [phone] Referral ID Status Reason Start Date Expiration Date V isits Requested Visits Authorized [id number] Authorized 03/13/2023 03/13/2024 999 99 Encounter Details Date Type Department Care Team (Latest Contact Info) Description 03/06/2023 8:45 AM EST Hem/Onc Treatment Hematology/Oncolog y Treatment, [address] [address] Patti, Chair 4 Hem Onc [address] [place] [address] Encounter for antineoplastic chemotherapy*; Cancer of base of tongue (HCC) Allergies No known active allergiesdocumented as of this encounter (statuses as of 04/03/2023) Medications Medication Sig Dispensed Refills Start Date End Date Status Nystatin 043687 UNIT/ML Mouth/Throat Suspension Swish and swallow 5 [...] directed through feeding tube via bolus syringe. 93822 mL 11 01/10/2023 Active Additional Information Patient [...] help. Patient had been prescribed oxycodone by [facility] but says this does not [...] in place, using the feeding discussed with Breaking Machine Operator per their recommendations Nausea/Vomiting no Diarrhea [...] PM EST [facility], [facility] 132 [facility] [place] [address] Carissa Thomas RN [address] [place] [address] 04/08/2023 9:10 AM EST Laboratory Laboratory [place] [address] [place] [address] Park, Lab Scenery [address] [place] [address] 04/08/2023 10:00 AM EST Hem/Onc Treatment Hematology/Oncology Treatment, [place] [address] [place] [address] Park, Chair 6 Hem Onc [address] [place] [address] 04/10/2023 9:15 AM EST Imaging Radiology [address], [place] [address] [place] [address] 04/17/2023 9:30 AM EST [facility]medicine [facility], [place] [address] [place] [address] Andreia Horner PA-C [address] [place] [address] Anabel Hubbard, Community Health Food Scientist [address] [place] [address] 04/28/2023 9:00 AM EDT Office Visit [facility] [address] [place] [address] Alida Aceves MD [address] [place], [place] [phone] 05/29/2023 8:15 AM EDT Office Visit Hematology/Oncology [facility] [place] 200 [facility] [place] [address] Tevin Kenney MD 200 [facility] [place] [address] 07/02/2023 3:20 PM EDT Office Visit Pulmonary Medicine Brea Null [address] [place] [address] Felipe Hernandez MD [address] [place] [phone] Health Maintenance Due Date Last Done Comments [...] mL/hr documented in this encounter Care Teams Executive Wellness Programs Director Relationship Specialty Start Date End Date Alida Aceves MD [address] [place] [address] PCP - General Internal Medicine 08/15/22 documented as of this encounter
--- OUTSIDE RECORDS SUMMARY | 2023-04-27 17:08 | External Medical Summary | Summary of Care ---
Author Name Unknown Organization [facility] Address [address] [place] [address] Phone [phone] Care Team Providers Care Pre Sales Technical Engineer Name Role Phone Alida Aceves MD Primary Care Provider [phone] Reason for Visit * Reason Onset Date Comments Appointment 03/31/2023 Palliative Care Order Encounter Details Date Type Department Care Team (Late st Contact Info) Description 03/31/2023 Telephone [facility] [address] [place] [address] Alida Aceves MD [address] [place] [address] Appointment (Palliative Care Order) Allergies No known active allergiesdocumented as of this encounter (statuses as of 04/02/2023) Medications Medication Sig Dispensed Refills Start Date End Date Status Nystatin 828850 UNIT/ML Mouth/Throat Suspension Swish and swallow 5 [...] Active Prochlorperazine Maleate 10 MG Oral Tablet (Compazine)Indicat [...] directed through feeding tube via bolus syringe. 98835 mL 11 01/10/2023 Active Magnesium 400 MG [...] MCG/ACT Inhalation Aerosol Powder Breath Activated (umeclidinium Evangeline) Inhale 1 Puff by mouth in the morning. 12 Each 3 03/28/2023 Active Albuterol Sulfate HFA 108 (90 Base) MCG/ACT Inhalation Aerosol Solution Inhale 2 Puffs by mouth every 6 hours as needed (cough, SOB). 18 g 5 03/28/2023 Active Montelukast Sodium 10 MG Oral Tablet (Singulair) Take 1 Tablet by mouth in the morning. 90 Tablet 3 03/28/2023 Active Hospital, Clinic, or Other Facility Administered [...] Telephone Encounter - Vashti Anderson OSA - 04/02/2023 5:01 PM EST MyG sent. 04/02/2023 * Telephone Encounter - Vashti Anderson OSA - 03/31/2023 12:58 PM EST LMOM to schedule Palliative Care. 03/31/2023 documented in this encounter Plan of Treatment Upcoming Encounters Date Type Department Care Team (Late st Contact Info) Description 04/07/2023 2:00 PM EST [facility] Visit [facility], [facility] 132 [facility] [place] [address] Carissa Thomas RN 132 [facility] [place] [address] 04/08/2023 9:10 AM EST Laboratory Laboratory Scenery [facility] [address] [place] [phone] [place], Lab Scenery [address] [facility] [place] [address] 04/08/2023 10:00 AM EST Hem/Onc Treatment Hematology/Oncology Treatment, [place] [address] [place] [phone] Patti, Chair 6 Hem Onc Scenery [address] [place] [address] 04/10/2023 9:15 AM EST Imaging Radiology [address], [place] 132 [facility] [place] [address] 04/17/2023 9:30 AM EST Telemedicine [facility], [address] [place] [address] Andreia Horner PA-C [address] [place] [address] Anabel Hubbard, Community Health Heel Sorter [address] [place] [address] 04/28/2023 9:00 AM EDT Office Visit [facility] [address] [place] [phone] Alida Aceves MD [address] [place] [address] 05/29/2023 8:15 AM EDT Office Visit Hematology/Oncology [facility] [address] [place] [phone] Tevin Kenney MD [address] [place] [address] 07/02/2023 3:20 PM EDT Office Visit Pulmonary Medicine Brea Null [address] [place] [address] Felipe Hernandez MD [address] [place] [address] Health Maintenance Due Date Last Done Comments [...] filedocumented as of this encounter Care Teams Pre Sales Technical Engineer Relationship Specialty Start Date End Date Alida Aceves MD [address] [place] [address] PCP - General Internal Medicine 08/15/22 documented as of this encounter
--- OUTSIDE RECORDS SUMMARY | 2023-04-27 17:08 | External Medical Summary | Summary of Care ---
Author Name Unknown Organization [facility] Address [address] [place] [address] Phone [phone] Care Team Providers Care Manufacturing Specialist Name Role Phone Alida Aceves MD Primary Care Provider [phone] Reason for Visit * Reason Comments Chemotherapy C1D22 Cisplatin * Episode Based Medications (Routine) - Authorized Specialty Diagnoses / Procedures Referred By Contac t Referred To Contact Diagnoses Encounter for antineoplastic chemotherapy Cancer of base of tongue (HCC) Procedures HI CISPLATIN 10 MG INJECTION HI FOSAPREPITANT INJECTION HI INJ., APREPITANT, 1 MG Tevin Kenney MD 200 [facility] [place] [address] Anc Hem/Onc [facility] Patti [address] [place] [phone] Referral ID Status Reason Start Date Expiration Date V isits Requested Visits Authorized [id number] Authorized 03/13/2023 03/13/2024 999 [id number] Encounter Details Date Type Department Care Team (Latest Contact Info) Description 03/06/2023 8:45 AM EST Hem/Onc Treatment Hematology/Oncolog y Treatment, [address] [address] Patti, Chair 4 Hem Onc [address] [place] [address] Encounter for antineoplastic chemotherapy*; Cancer of base of tongue (HCC) Allergies No known active allergiesdocumented as of this encounter (statuses as of 04/02/2023) Medications Medication Sig Dispensed Refills Start Date End Date Status Nystatin 521099 UNIT/ML Mouth/Throat Suspension Swish and swallow 5 [...] directed through feeding tube via bolus syringe. 27448 mL 11 01/10/2023 Active Additional Information Patient [...] help. Patient had been prescribed oxycodone by [facility] but says this does not help. Patient [...] in place, using the feeding discussed with Insulation Foreman per their recommendations Nausea/Vomiting no Diarrhea no [...] EST Office Visit Nutrition & Weight Management, [facility] [address] [place] [address] Penelope Celaya PA-C 132 [place] [address] 04/07/2023 2:00 PM EST [facility] Visit [facility] [place], [facility] 132 [place] [address] Carissa Thomas RN 132 [place] [address] 04/08/2023 9:10 AM EST Laboratory Laboratory [facility] Patti [place] [address] [place], [place] [address] Patti, Lab Scenery [address] [place], [place] [address] 04/08/2023 10:00 AM EST Hem/Onc Treatment Hematology/Oncology Treatment, [place] [address] [place], [place] [phone] Patti, Chair 6 Hem Onc Scenery [address] [place], [place] [address] 04/10/2023 9:15 AM EST Imaging Radiology [facility] 1st [facility], [place] 132 [facility] [address] 04/17/2023 9:30 AM EST Telemedicine [facility], [place] [address] [place] [address] Andreia Horner PA-C [address] [place] [address] Anabel Hubbard, Community Health Eye Physician [address] [place] [address] 04/28/2023 9:00 AM EDT Office Visit [facility] [address] [place] [phone] Alida Aceves MD [address] [place] [address] 05/29/2023 8:15 AM EDT Office Visit Hematology/Oncology [facility] Patti [place] [address] [place], [place] [phone] Tevin Kenney MD [address] [place] [address] 07/02/2023 3:20 PM EDT Office Visit Pulmonary Medicine [place] Brea Nicolas [address] [place] [address] Felipe Hernandez MD [address] [place] [address] Health Maintenance Due Date Last Done Comments [...] mL/hr documented in this encounter Care Teams Manufacturing Specialist Relationship Specialty Start Date End Date Alida Aceves MD [address] [place] [facility] [place] [address] PCP - General Internal Medicine 08/15/22 documented as of this encounter
--- OUTSIDE RECORDS SUMMARY | 2023-04-27 17:08 | External Medical Summary | Summary of Care ---
Author Name Unknown Organization [facility] Address [address] [place] [address] Phone [phone] Care Team Providers Care Medical Technical Writer Name Role Phone Alida Aceves MD Primary Care Provider [phone] Reason for Visit * Reason Comments Chemotherapy Cisplatin. * Episode Based Medications (Routine) - Authorized Specialty Diagnoses / Procedures Referred By Contac t Referred To Contact Diagnoses Encounter for antineoplastic chemotherapy Cancer of base of tongue (HCC) Procedures NV CISPLATIN 10 MG INJECTION NV FOSAPREPITANT INJECTION NV INJ., APREPITANT, 1 MG Tevin Kenney MD 200 [facility] [place] [address] Anc Hem/Onc [address] [address] Referral ID Status Reason Start Date Expiration Date V isits Requested Visits Authorized [id number] Authorized 03/13/2023 03/13/2024 999 99 Encounter Details Date Type Department Care Team (Latest Contact Info) Description 02/27/2023 8:45 AM EST Hem/Onc Treatment Hematology/Oncolog y Treatment, [address] [address] Patti, Chair 2 Hem On[address] [place] [address] Encounter for antineoplastic chemotherapy*; Cancer of base of tongue (HCC) Allergies No known active allergiesdocumented as of this encounter (statuses as of 04/02/2023) Medications Medication Sig Dispensed Refills Start Date End Date Status Nystatin 371693 UNIT/ML Mouth/Throat Suspension Swish and swallow 5 [...] directed through feeding tube via bolus syringe. 37983 mL 11 01/10/2023 Active Additional Information Patient [...] 2:00 PM EST [facility] [place], [facility] 132 [facility] [place] [address] Carissa Thomas RN 132 [facility] [place] [address] 04/08/2023 9:10 AM EST Laboratory Laboratory Scenery [facility] [address] [place] [phone] [place], Lab Scenery [address] [place] [address] 04/08/2023 10:00 AM EST Hem/Onc Treatment Hematology/Oncology Treatment, [place] [address] [place] [phone] Patti, Chair 6 Hem Onc Scenery [address] [place] [address] 04/10/2023 9:15 AM EST Imaging Radiology [address], [place] [address] [facility] [place] [address] 04/17/2023 9:30 AM EST Telemedicine [facility], [place] [address] [place] [address] Andreia Horner PA-C [address] [place] [address] Anabel Hubbard, Community Health J2Ee Architect [address] [place] [address] 04/28/2023 9:00 AM EDT Office Visit [facility] [address] [place] [address] Alida Aceves MD [address] [place] [address] 05/29/2023 8:15 AM EDT Office Visit Hematology/Oncology [facility] 200 [place] [address] Tevin Kenney MD 200 [place] [address] 07/02/2023 3:20 PM EDT Office Visit Pulmonary Medicine [place] Maria Isabel Holden [address] [place] [phone] Felipe Hernandez MD [address] [place] [address] Health Maintenance Due Date Last Done Comments [...] 2022 DISCUSS TOBACCO CESSATION (REFER TO SMARTSET #5801) 10/16/2023 10/15/2022 O2 ASSESSMENT COMPLETED IN PAST [...] mL/hr documented in this encounter Care Teams Medical Technical Writer Relationship Specialty Start Date End Date Alida Aceves MD [address] [place] [facility] [place] [address] PCP - General Internal Medicine 08/15/22 documented as of this encounter
--- OUTSIDE RECORDS SUMMARY | 2023-04-27 17:09 | External Medical Summary | Summary of Care ---
Author Name Unknown Organization [facility] Address [address] [place] [address] Phone [phone] Care Team Providers Care Clerk Of Court Name Role Phone Alida Aceves MD Primary Care Provider [phone] Reason for Visit * Reason Onset Date Comments [facility]: Engagement 03/26/2023 Encounter Details Date Type Department Care Team (Late st Contact Info) Description 03/26/2023 Telephone [facility], [facility] [address] [place] [address] [facility], Nurse [facility] [address] [place] [address] [facility]: Engagement Allergies No known active allergiesdocumented as of this encounter (statuses as of 03/26/2023) Medications Medication Sig Dispensed Refills Start Date End Date Status Nystatin 204109 UNIT/ML Mouth/Throat Suspension Swish and swallow 5 [...] directed through feeding tube via bolus syringe. 96663 mL 11 01/10/2023 Active Additional Information Patient [...] as of this encounter (statuses as of 03/26/2023) Active Problems Problem Noted Date Diagnosed Date Cancer of base of tongue 01/08/2023 Encounter for antineoplastic chemotherapy 2022 Centrilobular emphysema 11/11/2022 Cavitary lung disease 10/15/2022 Pain in limb 04/04/2008 Family history of ischemic heart disease 009 Routine medical exam 03/22/2008 Tobacco use disorder 03/22/2008 Venous insufficiency 10/14/2002 documented as of this encounter (statuses as of 03/26/2023) Resolved Problems Problem Noted Date Diagnosed Date Resolved Date 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 9 10/15/2022 documented as of this encounter (statuses as of 03/26/2023) Immunizations Name Administration Dates Next Due Pneumococcal [...] encounter Miscellaneous Notes * Telephone Encounter - Aimee Young LPN - 03/26/2023 11:25 AM EST [facility] Enrollment Form Screening: Referral Source: [facility] Primary Reason for Referral (Select most relevant): No data was found Engagement: Engagement Attempt 1: Unable to contact Engagement Attempt 2: Contacted - Agreed to home-based services Scheduled appointment information: [place] 04/07 [place] 04/16 Home Information: No data was found Advance Care Planning (ACP): No data was found Has Living Will or Advance Directive: No data was found Anticipated Sub-Program: Focused Care Management (3-9 months) Confirmation of Sub-Program Type (by care teamcenter solution architect): No data was found Handoff Information: Current care team notified via: [place] Current telemonitoring equipment: No data was found Pt agreed to [facility] services while inpatient. Shira Self RNCM will review [facility] services and scheduled appts with pt at 03/28/2023 office visit. documented in this encounter Plan of Treatment Upcoming Encounters Date Type Department Care Team (Late st Contact Info) Description 03/26/2023 12:45 PM EST Scheduled Telephone [facility], [facility] 132 [facility] [place] [address] Coordinator, Ronna Basurto [facility] [place] [address] 03/28/2023 9:40 AM EST Office Visit [facility] [address] [facility] [place] [address] Alida Aceves MD [address] [place] [address] 04/04/2023 11:20 AM EST Office Visit Nutrition & Weight Management, [facility] 132 [facility] [place] [address] Penelope Celaya PA-C 132 [facility] [place] [address] 04/07/2023 2:00 PM EST Home Visit [facility], [facility] 132 [facility] [place] [address] Carissa Thomas, RN 132 [facility] [place] [address] 04/10/2023 9:15 AM EST Imaging Radiology [facility] 1st [facility] 132 [facility] [place] [address] 04/17/2023 9:30 AM EST Telemedicine [facility], [facility] [address] [place] [address] Andreia Horner PANanC [address] [place] [address] Anbael Hubbard, Community Health Oceanographer Geological [address] [facility] [address] 07/02/2023 3:20 PM EDT Office Visit Pulmonary Medicine Brea Null [address] [place] [address] Felipe Hernandez MD [address] [place] [address] Health Maintenance Due Date Last Done Comments COVID-19 Vaccine (#1) 02/06/1960 Pneumococcal Vaccine: Pediat rics (0 to 5 Years) and At-Risk Patients (6 to 64 Years) (1 - PCV) 08/06/1965 Depression Screening 1971 Cologuard 08/06/2004 Colonoscopy 08/06/2004 Colorectal Cancer Screening 08/06/2004 Fecal Occult Blood Test 08/06/2004 Sigmoidoscopy 08/06/2004 Zoster Vaccines (1 of 2) 08/06/2009 DTaP,Tdap,and Td Vaccines (2 - Td or Tdap) 02/10/2015 02/10/2005 Influenza Vaccine (FLU shot) (#1) 2022 DISCUSS TOBACCO CESSATION (R EFER TO SMARTSET #3111) 10/16/2023 10/15/2022 O2 ASSESSMENT COMPLETED IN P [...] filedocumented as of this encounter Care Teams Clerk Of Court Relationship Specialty Start Date End Date Alida Aceves MD [address] [place] [address] PCP - General Internal Medicine 08/15/22 documented as of this encounter
--- OUTSIDE RECORDS SUMMARY | 2023-04-27 17:09 | External Medical Summary | Summary of Care ---
Author Name Unknown Organization [facility] Address [address] [place] [address] Phone [phone] Care Team Providers Care Hand Packer Name Role Phone Alida Aceves MD Primary Care Provider Reason for Visit * Reason Comments Chemotherapy C1D22 Cisplatin * Episode Based Medications (Routine) - Authorized Specialty Diagnoses / Procedures Referred By Contac t Referred To Contact Diagnoses Encounter for antineoplastic chemotherapy Cancer of base of tongue (HCC) Procedures CA CISPLATIN 10 MG INJECTION CA FOSAPREPITANT INJECTION CA INJ., APREPITANT, 1 MG Tevin Kenney MD 200 [facility] [place] [address] Anc Hem/Onc [facility] Patti [address] [place] [phone] Referral ID Status Reason Start Date Expiration Date V isits Requested Visits Authorized [id number] Authorized 03/13/2023 03/13/2024 999 99 Encounter Details Date Type Department Care Team (Latest Contact Info) Description 03/06/2023 8:45 AM EST Hem/Onc Treatment Hematology/Oncolog y Treatment, [address] [address] Patti, Chair 4 Hem On[address] [place] [address] Encounter for antineoplastic chemotherapy*; Cancer of base of tongue (HCC) Allergies No known active allergiesdocumented as of this encounter (statuses as of 04/02/2023) Medications Medication Sig Dispensed Refills Start Date End Date Status Nystatin 537858 UNIT/ML Mouth/Throat Suspension Swish and swallow 5 [...] directed through feeding tube via bolus syringe. 94788 mL 11 01/10/2023 Active Additional Information Patient [...] help. Patient had been prescribed oxycodone by [facility] but says this does not help. Patient [...] in place, using the feeding discussed with Breaker Up Machine Operator per their recommendations Nausea/Vomiting no [...] EST Office Visit Nutrition & Weight Management, [facility] [address] [place] [address] Penelope Celaya PA-C [address] [place] [address] 04/07/2023 2:00 PM EST [facility] Visit [facility] [place], [facility] [address] [place] [address] Carissa Thomas RN 132 [place] [address] 04/08/2023 9:10 AM EST Laboratory [facility] Patti [place] [address] [place], [place] [address] Patti, Lab Scenery [address] [place], [place] [address] 04/08/2023 10:00 AM EST Hem/Onc Treatment Hematology/Oncology Treatment, [place] [address] [place], [place] [phone] Patti, Chair 6 Hem Onc Scenery [address] [place], [place] [address] 04/10/2023 9:15 AM EST Imaging Radiology [facility] 1st [facility], [place] 132 [facility] [place] [address] 04/17/2023 9:30 AM EST Telemedicine [facility], [place] [address] [place] [address] Andreia Horner PA-C [address] [place] [address] Anabel Hubbard, Community Health Patient Care Director [address] [place] [address] 04/28/2023 9:00 AM EDT Office Visit [facility] [address] [place] [address] Alida Aceves MD [address] [place] [address] 05/29/2023 8:15 AM EDT Office Visit Hematology/Oncology [facility] Patti [place] [address] [place], [place] [phone] Tevin Kenney MD [address] [place] [address] 07/02/2023 3:20 PM EDT Office Visit Pulmonary Medicine [place] Brea Nicolas [address] [place] [address] Felipe Hernandez MD [address] [place] [address] Health Maintenance Due Date Last Done Comments [...] mL/hr documented in this encounter Care Teams Hand Packer Relationship Specialty Start Date End Date Alida Aceves MD [address] [place] [facility] [place] [place] [address] PCP - General Internal Medicine 08/15/22 documented as of this encounter
--- OUTSIDE RECORDS SUMMARY | 2023-04-27 17:09 | External Medical Summary | Summary of Care ---
Author Name Unknown Organization [facility] Address [address] [place] [address] Phone [phone] Care Team Providers Care Stem Frazer Name Role Phone Alida Aceves MD Primary Care Provider [phone] Reason for Visit * Reason Comments Chemotherapy Cisplatin * Episode Based Medications (Routine) - Authorized Specialty Diagnoses / Procedures Referred By Contac t Referred To Contact Diagnoses Encounter for antineoplastic chemotherapy Cancer of base of tongue (HCC) Procedures [place] CISPLATIN 10 MG INJECTION [place] FOSAPREPITANT INJECTION [place] INJ., APREPITANT, 1 MG Tevin Kenney MD 200 [facility] [place] [address] Anc Hem/Onc [facility] Patti [address] [place] [phone] Referral ID Status Reason Start Date Expiration Date V isits Requested Visits Authorized [id number] Authorized 03/13/2023 03/13/2024 999 [id number] Encounter Details Date Type Department Care Team (Latest Contact Info) Description 03/31/2023 10:30 AM EST Hem/Onc Treatment Hematology/Oncolog y Treatment, [address] [address] Patti, Chair 11 Hem Onc [address] [place] [address] Cancer of base of tongue (HCC)*; Encounter for antineoplastic chemotherapy Allergies No known active allergiesdocumented as of this encounter (statuses as of 03/31/2023) Medications Medication Sig Dispensed Refills Start Date End Date Status Nystatin 273291 UNIT/ML Mouth/Throat Suspension Swish and swallow 5 [...] directed through feeding tube via bolus syringe. [address]1731 mL 11 01/10/2023 Active Magnesium 400 MG [...] MCG/ACT Inhalation Aerosol Powder Breath Activated (umeclidinium [place]) Inhale 1 Puff by mouth in the [...] as of this encounter (statuses as of 03/31/2023) Active Problems Problem Noted Date Diagnosed Date Protein-calorie malnutrition, severe 03/28/2023 Immunocompromised 03/28/2023 Rhinitis 03/28/2023 Cancer of base of tongue 01/08/2023 Encounter for antineoplastic chemotherapy 2022 Centrilobular emphysema 11/11/2022 Cavitary lung disease 10/15/2022 Pain in limb 04/04/2008 Family history of ischemic heart disease 009 History of tobacco use 03/22/2008 Venous insufficiency 10/14/2002 documented as of this encounter (statuses as of 03/31/2023) Resolved Problems Problem Noted Date Diagnosed Date Resolved Date 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 9 10/15/2022 Routine medical exam 03/22/2008 024 documented as of this encounter (statuses as of 03/31/2023) Immunizations Name Administration Dates Next Due Pneumococcal [...] Sign Reading Time Taken Comments Blood Pressure 111/69 03/31/2023 11:07 AM EST Pulse 85 03/31/2023 11:07 AM EST Temperature 36.8 C (98.3 F) 03/31/2023 11:[address] Respiratory Rate 18 03/31/2023 11:07 AM EST Oxygen Saturation 96% 03/31/2023 11:07 AM EST Inhaled Oxygen Concentration - - Weight 56 kg (123 lb 6.4 oz) 03/31/2023 11:07 AM EST Height - - Body Mass Index 16.74 03/03/2023 3:01 PM EST documented in this encounter Nursing Notes * Judi Sanchez, RN - 03/31/2023 4:24 PM EST Functional status at today's visit: [...] symptoms or adverse side effects during treatment. Pt completed treatment without issues. IV removed. Goals: Pt will remain free from I njury. Possible barriers to meeting goals: ambulation with IV pole Stability of the patient: Moderately stable - low risk of patient condition declining or worsening Summary regarding today's goals: Met: Pt remained free from injury during treatment today. Discharged in stable condition. AB assisted. * Judi Sanchez RN - 03/31/2023 11:08 AM EST Chair 8 Chemo agents Cisplatin Appetite stable, pt stated enteral feedings are going okay Nausea/Vomiting no Diarrhea no Constipation no Mucositis no Fatigue stable Bleeding no Infection no Rash no Numbness tingling no Pain no Radiation yes ABN Labs Labs completed 03/28/23; per chester Bazzi to use these results for treatment today Alt in Tx: no Return in 1 week PIV established; NSS infusing. Safety and Risk for Injury Patient will remain free from injury. Ensure appropriate safety devices are available. Provide and maintain safe environment. documented in this encounter Plan of Treatment Upcoming Encounters Date Type Department Care Team (Late st Contact Info) Description 04/04/2023 11:20 AM EST Office Visit Nutrition & Weight Management, [facility] [address] [address] Penelope Celaya PA-C [address] [address] 04/07/2023 2:00 PM EST Home Visit [facility] [address] [address] Carissa Thomas RN [address] [address] 04/08/2023 9:10 AM EST Laboratory Laboratory [facility] [place] [address] [place] [phone] [facility] Scenery [address] [place] [address] 04/08/2023 10:00 AM EST Hem/Onc Treatment Hematology/Oncology Treatment, [place] [address] [place] [address] Patti, Chair 6 Hem Onc Scenery 200 [facility] [place] [address] 04/10/2023 9:15 AM EST Imaging Radiology [facility] 1st Floor, [place] [address] [facility] [address] 04/17/2023 9:30 AM EST Telemedicine [facility] [place] [address] [place] [address] Andreia Horner PA-C [address] [place] [address] Anabel Hubbard, Community Health Language Specialist [address] [place] [address] 04/28/2023 9:00 AM EDT Office Visit [facility] [address] [place] [phone] Alida Aceves MD [address] [place] [address] 05/29/2023 8:15 AM EDT Office Visit Hematology/Oncology [facility] [place] [address] [place] [phone] Tevin Kenney MD [address] [place], [place] [address] 07/02/2023 3:20 PM EDT Office Visit Pulmonary Medicine Brea Null [address] [phone] Felipe Hernandez MD [address] [address] Health Maintenance Due Date Last Done Comments [...] Not on filedocumented as of this encounter Results * (ABNORMAL) MAGNESIUM (03/28/2023 10:39 AM EST) Magnesium 2.7(H) 1.5 - 2.6 mg/dL 03/31/2023 10:52 AM EST LABORATORY GM Blood Venous blood specimen / Unknown Venipuncture / Unknown 03/28/2023 10:39 AM EST 03/28/2023 10:39 AM EST Tevin Kenney MD LAB BLOOD ORDERABLES [facility] [address] [place] [address] documented in this encounter Visit Diagnoses Diagnosis Cancer of base of tongue (HCC)- Primary Malignant neoplasm of base of tongue Encounter for antineoplastic chemotherapy documented in this encounter Administered Medications Active Administered Medications - up to 3 most recent administrations Medication Order MAR Action Action Date Dose Rate Site diphenhydrAMINE (Benadryl) inj 50 mg 50 mg, IV Push, ONCE PRN Other, Hypersensitivity Reaction, Starting on Fri03/31/23 at 1102, Until Fri04/01/23 at 1101, For 24 hours EPINEPHrine 1 MG/ML inj 0.3 mg 0.3 mg, Intramuscular, ONCE PRN Other, Hypersensitivity Reaction or Anaphylaxis, Starting on Fri03/31/23 at 1102, Until Fri04/01/23 at 1101, For 24 hours hEParin 100 UNIT/ML Lock Flush inj 500 Units 500 Units (5 mL), IV Lock, PRN Other, IV Flush, Starting on Fri03/31/23 at 1102, Until Fri04/01/23 at 1101, For 24 hours, Do not flush if lock, PICC, or central line not in place; IV infusing or unable to flush. Hydrocortisone Sod Suc (PF) (Solu-Cortef) inj 100 mg 100 mg, IV Push, ONCE PRN Other, Hypersensitivity Reaction, Starting on Fri03/31/23 at 1102, Until Fri04/01/23 at 1101, For 24 hours LORAzepam (Ativan) tab 0.5 mg 0.5 mg, Oral, ONCE PRN Anxiety, Nausea, Starting on Fri03/31/23 at 1215, Until Discontinued oxygen GAS Inhalation, OXYGEN, First dose on Fri03/31/23 at 1145, Until Discontinued, Device/Managed by: Low [...] Push, PRN Other, IV Flush, Starting on Fri03/31/23 at 1102, Until Fri04/01/23 at 1101, For 24 hours, Do not flush if [...] Plan BSA from Recorded weight), IV Piggyback, at 250 mL/hr Administer over 60 Minutes, PROTECT FROM LIGHT During radiation therapy only., ONCE, 1 dose, On Fri03/31/23 at 1245 Start Infusion 03/31/2023 1:00 PM EST 68 mg 250 mL/hr Fosaprepitant Dimeglumine (Emend) 150 mg, ondansetron (Zofran) 16 mg, dexamethasone sodium phosphate 12 mg in NSS 250 mL Infusion 150 mg, IV Piggyback, ONCE, 1 dose, On Fri03/31/23 at 1215, Administer over 30 Minutes, Give 30 minutes prior to chemotherapy. Infuse over 30 minutes. Start Infusion 03/31/2023 11:24 AM EST 150 mg 500 mL/hr Furosemide (Lasix) inj 20 mg 20 mg, IV Push, ONCE, On Fri03/31/23 at 1200, For 1 dose Given 03/31/2023 2:05 PM EST 20 mg NSS 1,000 mL with magnesium sulfate 1 g, potassium chloride 20 mEq infusion Intravenous, at 500 mL/hr Administer over 2 Hours, Post-cisplatin hydration, ONCE, 1 dose, On Fri03/31/23 at 1345 Start Infusion 03/31/2023 2:06 PM EST 500 mL/hr NSS infusion 1,000 mL, Intravenous, at 500 mL/hr Administer over 2 Hours, Pre-cisplatin hydration, CONTINUOUS, Starting on Fri03/31/23 at 1145, Until Fri03/31/23 at 1344 Start Infusion 03/31/2023 11:00 AM EST 1,000 mL 500 mL/hr documented in this encounter Care Teams Stem Frazer Relationship Specialty Start Date End Date Alida Aceves MD [address] [address] PCP - General Internal Medicine 08/15/22 documented as of this encounter
--- OUTSIDE RECORDS SUMMARY | 2023-04-27 17:09 | External Medical Summary | Summary of Care ---
Author Name Unknown Organization [facility] Address [address] [place] [address] Phone [phone] Care Team Providers Care Gas Or Petroleum Operator Name Role Phone Alida Aceves MD Primary Care Provider [phone] Reason for Visit * Reason Onset Date Comments Appointment 03/26/2023 Encounter Details Date Type Department Care Team (Late st Contact Info) Description 03/26/2023 Telephone Hematology/Oncology [facility] Patti [place] 200 [facility] [place] [address] Tevin Kenney MD 200 [place] [address] Appointment Allergies No known active allergiesdocumented as of this encounter (statuses as of 03/26/2023) Medications Medication Sig Dispensed Refills Start Date End Date Status Nystatin 231473 UNIT/ML Mouth/Throat Suspension Swish and swallow 5 [...] directed through feeding tube via bolus syringe. 23283 mL 11 01/10/2023 Active Additional Information Patient [...] encounter Miscellaneous Notes * Telephone Encounter - Karina Vigil OSA - 03/26/2023 1:07 PM EST Called and lmom for patient. * Telephone Encounter - Asia Dimas LPN - 03/26/2023 12:53 PM EST Patient was a No Show Please call patient to reschedule missed appt documented in this encounter Plan of Treatment Upcoming Encounters Date Type Department Care Team (Late st Contact Info) Description 03/28/2023 9:40 AM EST Office Visit [facility] [address] [facility] [phone] Aldia Aceves MD [address] [facility] [address] 04/04/2023 11:20 AM EST Office Visit Nutrition & Weight Management, [facility] [address] [facility] [place] [address] Penelope Celaya PA-C 132 [facility] [address] 04/07/2023 2:00 PM EST Home Visit [facility], [facility] 132 [facility] [place] [address] Carissa Thomas, RN 132 [place] [address] 04/10/2023 9:15 AM EST Imaging Radiology [facility] 1st [facility] 132 [facility] [place] [address] 04/17/2023 9:30 AM EST Telemedicine [facility], [facility] [address] [place] [address] Andreia Horner PA-C [address] [place] [address] Anabel Hubbard, Community Health Property Appraiser [address] [place] [address] 07/02/2023 3:20 PM EDT Office Visit Pulmonary Medicine Brea Null [address] [place] [phone] Felipe Hernandez MD [address] [place] [address] Health Maintenance Due Date Last Done Comments [...] DISCUSS TOBACCO CESSATION (R EFER TO SMARTSET #[id number]) 10/16/2023 10/15/2022 O2 ASSESSMENT COMPLETED IN P [...] filedocumented as of this encounter Care Teams Gas Or Petroleum Operator Relationship Specialty Start Date End Date Ailda Aceves MD [address] [place] [address] PCP - General Internal Medicine 08/15/22 documented as of this encounter
--- OUTSIDE RECORDS SUMMARY | 2023-04-27 17:09 | External Medical Summary | Summary of Care ---
Author Name Unknown Organization [facility] Address [address] [place] [address] Phone [phone] Care Team Providers Care Fashion Intern Name Role Phone Alida Aceves MD Primary Care Provider [phone] Reason for Visit * Reason Comments Chemotherapy C1D22 Cisplatin * Episode Based Medications (Routine) - Authorized Specialty Diagnoses / Procedures Referred By Contac t Referred To Contact Diagnoses Encounter for antineoplastic chemotherapy Cancer of base of tongue (HCC) Procedures CA CISPLATIN 10 MG INJECTION CA FOSAPREPITANT INJECTION CA INJ., APREPITANT, 1 MG Tevin Kenney MD 200 [place] [address] Anc Hem/Onc [facility] Patti [address] [place] [phone] Referral ID Status Reason Start Date Expiration Date V isits Requested Visits Authorized [id number] Authorized 03/13/2023 03/13/2024 999 99 Encounter Details Date Type Department Care Team (Latest Contact Info) Description 03/06/2023 8:45 AM EST Hem/Onc Treatment Hematology/Oncolog y Treatment, [address] [address] Patti, Chair 4 Hem On[address] [place] [address] Encounter for antineoplastic chemotherapy*; Cancer of base of tongue (HCC) Allergies No known active allergiesdocumented as of this encounter (statuses as of 04/02/2023) Medications Medication Sig Dispensed Refills Start Date End Date Status Nystatin 974945 UNIT/ML Mouth/Throat Suspension Swish and swallow 5 [...] directed through feeding tube via bolus syringe. 65683 mL 11 01/10/2023 Active Additional Information Patient [...] help. Patient had been prescribed oxycodone by [facility] but says this does not [...] in place, using the feeding discussed with Picu Nurse per their recommendations Nausea/Vomiting no Diarrhea no [...] Office Visit Nutrition & Weight Management, [facility] [address] [address] Penelope Celaya PA-C [address] [address] 04/07/2023 2:00 PM EST Home Visit [facility] [place], [facility] [address] [address] Carissa Thomas RN [address] [address] 04/08/2023 9:10 AM EST Laboratory Laboratory [facility] Patti [place] [address] [place], [place] [address] Patti, Lab Scenery [address] [place], [place] [address] 04/08/2023 10:00 AM EST Hem/Onc Treatment Hematology/Oncology Treatment, [place] [address] [place], [place] [phone] Patti, Chair 6 Hem Onc [address]enery [address] [place], [place] [address] 04/10/2023 9:15 AM EST Imaging Radiology [facility] 1st [facility], [place] [address] [facility] [address] 04/17/2023 9:30 AM EST Telemedicine [facility], [place] [address] [place] [address] Andreia Horner PA-C [address] [place] [address] Anabel Hubbard, Community Health Ceramic Mold Designer [address] [place] [address] 04/28/2023 9:00 AM EDT Office Visit [facility] [address] [place] [phone] Alida Aceves MD [address] [place] [address] 05/29/2023 8:15 AM EDT Office Visit Hematology/Oncology [facility] Patti [place] [address] [place], [place] [phone] Tevin Kenney MD [address] [place] [address] 07/02/2023 3:20 PM EDT Office Visit Pulmonary Medicine [place]a [place] [address] [phone] Felipe Hernandez MD [address] [address] Health Maintenance Due Date Last Done Comments [...] mL/hr documented in this encounter Care Teams Fashion Intern Relationship Specialty Start Date End Date Alida Aceves MD [address] [facility] [place] [address] PCP - General Internal Medicine 08/15/22 documented as of this encounter
--- OUTSIDE RECORDS SUMMARY | 2023-04-27 17:09 | External Medical Summary ---
Author Name Unknown Address Unknown Organization K01:LABORATORY C - [address] [place] [address] Laboratory Report Ordering Provider Test Date Status MAULIK KANG 03/28/2023 10:39:23 Final Observation Date Value Abnormality Reference (Units ) Status Magnesium 03/28/2023 10:39:23 2.7 Above high normal 1. 5-2.6 (mg/dL) Final Performing Location [facility] - [address] [place] [address]
--- OUTSIDE RECORDS SUMMARY | 2023-04-27 17:09 | External Medical Summary | Summary of Care ---
Author Name Unknown Organization [facility] Address [address] [place] [address] Phone [phone] Care Team Providers Care Motors And Generators Inspector Name Role Phone Alida Aceves MD Primary Care Provider [phone] Reason for Visit * Reason Onset Date Comments Appointment 03/26/2023 Encounter Details Date Type Department Care Team (Late st Contact Info) Description 03/26/2023 Telephone Hematology/Oncology [facility] Patti [place] 200 [facility] [place] [address] Tevin Kenney MD 200 [place] [address] Appointment Allergies No known active allergiesdocumented as of this encounter (statuses as of 03/26/2023) Medications Medication Sig Dispensed Refills Start Date End Date Status Nystatin 278408 UNIT/ML Mouth/Throat Suspension Swish and swallow 5 [...] directed through feeding tube via bolus syringe. 52455 mL 11 01/10/2023 Active Additional Information Patient [...] Encounter - Karina Vigil OSA - 03/26/2023 3:27 PM EST Patient responded by MyG. Spoke with and rescheduled patient to 03/27/23 @ 11:00am. Sent a MyG to patient with new appt day and time. * Telephone Encounter - Karina Vigil OSA - 03/26/2023 1:07 PM EST Called and lmom for patient. * Telephone Encounter - Asia Dimas LPN - 03/26/2023 12:53 PM EST Patient was a No Show Please call patient to reschedule missed appt documented in this encounter Plan of Treatment Upcoming Encounters Date Type Department Care Team (Late st Contact Info) Description 03/27/2023 11:00 AM EST Office Visit Hematology/Oncology [facility] [address] [place], [place] [address] Tevin Kenney MD [address] [place], [place] [address] 03/28/2023 9:40 AM EST Office Visit [facility] [address] [place] [address] Alida Aceves MD [address] [place] [address] 04/04/2023 11:20 AM EST Office Visit Nutrition & Weight Management, [facility] 132 [facility] [place] [address] Penelope Celaya PA-C 132 [facility] [place] [address] 04/07/2023 2:00 PM EST Home Visit [facility], [facility] [address] [place] [address] Carissa Thomas, RN 132 [facility] [place] [address] 04/10/2023 9:15 AM EST Imaging Radiology [facility] 1st [facility] 132 [facility] [place] [address] 04/17/2023 9:30 AM EST Telemedicine [facility], [facility] [address] [place] [address] Andreia Horner PAPb [address] [place] [address] Anabel Hubbard, Community Health Patrol Captain [address] [place] [address] 07/02/2023 3:20 PM EDT Office Visit Pulmonary Medicine Brae Null [address] [phone] Felipe Hernandez MD [address] [address] Health Maintenance Due Date Last Done Comments [...] DISCUSS TOBACCO CESSATION (R EFER TO SMARTSET #[id number]) 10/16/2023 10/15/2022 O2 ASSESSMENT COMPLETED IN P [...] filedocumented as of this encounter Care Teams Motors And Generators Inspector Relationship Specialty Start Date End Date Alida Aceves MD [address] [facility] [address] PCP - General Internal Medicine 08/15/22 documented as of this encounter
--- OUTSIDE RECORDS SUMMARY | 2023-04-27 17:09 | External Medical Summary | Summary of Care ---
Author Name Unknown Organization [facility] Address [address] [place] [address] Phone [phone] Care Team Providers Care Heavy Mobile Equipment Repairer Name Role Phone Alida Aceves MD Primary Care Provider [phone] Reason for Visit * Reason Onset Date Comments Hospital Follow-Up 03/25/2023 Encounter Details Date Type Department Care Team (Late st Contact Info) Description 03/25/2023 Telephone Hematology/Oncology Treatment, [place] [address] [place] [address] Tevin Kenney MD [address] [facility] [place] [address] Hospital Follow-Up Allergies No known active allergiesdocumented as of this encounter (statuses as of 03/26/2023) Medications Medication Sig Dispensed Refills Start Date End Date Status Nystatin 472194 UNIT/ML Mouth/Throat Suspension Swish and swallow 5 [...] directed through feeding tube via bolus syringe. 19347 mL 11 01/10/2023 Active Additional Information Patient [...] Miscellaneous Notes * Telephone Encounter - Lissett Miranda RN - 03/26/2023 10:00 AM EST Patient did not read MyG. Attempted to call patients sister and brother- no answer. Patient did notgo to rad/onc appts this morning either. * Telephone Encounter - Lissett Miranda RN - 03/25/2023 3:50 PM EST Per rad/onc, they are resuming radiation tomorrow. Last planned day of radiation 04/11/23. * Telephone Encounter - Lissett Miranda RN - 03/25/2023 3:06 PM EST HEMATOLOGY/ONCOLOGY HOSPITAL DISCHARGE FOLLOW-UP Call placed to patient to follow up after hospital discharge. Left message for return call. Dates patient was admitted at [facility]: 03/19/23 to 03/25/23 with a primary diagnosis of febrile neutropenia, pneumonia. Patient discharged home on cefdinir and doxycycline x4 more days, also mag supplement daily. Labs on discharge: - WBC 2.16 - Hgb 8.3 - Plt 219 - ANC 1.42 Post discharge hospital visit not yet scheduled- will have patient added to see Dr Kenney tomorrow at 11:15am TT sent to [facility] rad/onc- per discharge summary, advised to follow up with radiation oncology for radiation therapy. MyG sent to patient. documented in this encounter Plan of Treatment Upcoming Encounters Date Type Department Care Team (Late st Contact Info) Description 03/26/2023 11:30 AM EST Office Visit Hematology/Oncology [facility] [place] [address] [place] [address] Tevin Kenney MD 200 [facility] [place] [address] 03/26/2023 12:45 PM EST Scheduled Telephone [facility] [place], [facility] [address] [place] [address] Coordinator, [facility] [place] [address] 03/28/2023 9:40 AM EST Office Visit [place] [address] [facility] [phone] Alida Aceves MD [address] [place] [address] 04/04/2023 11:20 AM EST Office Visit Nutrition & Weight Management, [facility] [address] [place] [address] Penelope Celaya PA-C [address] [place] [address] 04/10/2023 9:15 AM EST Imaging Radiology [facility] 1st [facility] [address] [facility] [place] [address] 07/02/2023 3:20 PM EDT Office Visit Pulmonary Medicine Brea Null [address] [phone] Felipe Hernandez MD [address] [address] Health Maintenance Due Date Last Done Comments [...] DISCUSS TOBACCO CESSATION (R EFER TO SMARTSET #3631) 10/16/2023 10/15/2022 O2 ASSESSMENT COMPLETED IN P [...] filedocumented as of this encounter Care Teams Heavy Mobile Equipment Repairer Relationship Specialty Start Date End Date Alida Aceves MD [address] [facility] [address] PCP - General Internal Medicine 08/15/22 documented as of this encounter
--- OUTSIDE RECORDS SUMMARY | 2023-04-27 17:09 | External Medical Summary | Summary of Care ---
Author Name Unknown Organization [facility] Address [address] [place] [address] Phone [phone] Care Team Providers Care Manager Mechanical Maintenance Name Role Phone Alida Aceves MD Primary Care Provider [phone] Reason for Visit * Reason Comments Outpatient Testing Encounter Details Date Type Department Care Team (Late st Contact Info) Description 03/28/2023 10:40 AM EST Laboratory Laboratory, [place] [address] [place] [phone] [place], [facility] [address] [place] [address] Pneumonia of right lung due to infectious organism, unspecified part of lung Allergies No known active allergiesdocumented as of this encounter (statuses as of 03/28/2023) Medications Medication Sig Dispensed Refills Start Date End Date Status Nystatin 777355 UNIT/ML Mouth/Throat Suspension Swish and swallow 5 [...] directed through feeding tube via bolus syringe. 31243 mL 11 01/10/2023 Active Magnesium 400 MG [...] MCG/ACT Inhalation Aerosol Powder Breath Activated (umeclidinium Stanley) Inhale 1 Puff by mouth in the morning. 12 Each 3 03/28/2023 Active Albuterol Sulfate HFA 108 (90 Base) MCG/ACT Inhalation Aerosol Solution Inhale 2 Puffs by mouth every 6 hours as needed (cough, SOB). 18 g 5 03/28/2023 Active Hospital, Clinic, or Other Facility [...] as of this encounter (statuses as of 03/28/2023) Active Problems Problem Noted Date Diagnosed Date Protein-calorie malnutrition, severe 03/28/2023 Immunocompromised 03/28/2023 Rhinitis 03/28/2023 Cancer of base of tongue 01/08/2023 Encounter for antineoplastic chemotherapy 2022 Centrilobular emphysema 11/11/2022 Cavitary lung disease 10/15/2022 Pain in limb 04/04/2008 Family history of ischemic heart disease 009 History of tobacco use 03/22/2008 Venous insufficiency 10/14/2002 documented as of this encounter (statuses as of 03/28/2023) Resolved Problems Problem Noted Date Diagnosed Date Resolved Date 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 9 10/15/2022 Routine medical exam 03/22/2008 024 documented as of this encounter (statuses as of 03/28/2023) Immunizations Name Administration Dates Next Due Pneumococcal [...] Team (Late st Contact Info) Description 03/31/2023 10:30 AM EST Hem/Onc Treatment Hematology/Oncology Treatment, [place] [address] [place], [place] [address] Patti, Chair 11 Hem Onc Scen[place] [address] [place] [address] 04/04/2023 11:20 AM EST Office Visit Nutrition & Weight Management, [facility] [address] [facility] [place] [address] Penelope Celaya PA-C 132 [facility] [place] [address] 04/07/2023 2:00 PM EST [facility], [facility] [address] [facility] [place] [address] Carissa Thomas RN 132 [facility] [address] 04/10/2023 9:15 AM EST Imaging Rad[facility] [address] [facility] [place] [address] 04/17/2023 9:30 AM EST Telemedicine [facility], [facility] [address] [place] [address] Andreia Horner PANanC [address] [place] [address] Anabel Hbubard, Community Health Appliquer [address] [place] [address] 04/28/2023 9:00 AM EDT Office Visit [facility] [address] [facility] [phone] Alida Aceves MD [address] [place] [address] 05/29/2023 8:15 AM EDT Office Visit Hematology/Oncology [facility] [place] [address] [facility] [place], [place] [address] Tevin Kenney MD 200 [facility] [place] [address] 07/02/2023 3:20 PM EDT Office Visit Pulmonary Medicine Brea Null [address] [place] [phone] Felipe Hernandez MD [address] [place] [address] Pending Results Name Type Priority Associated Diagnoses Date /Time CBC WITH WBC DIFFERENTIAL Lab Routine Pneumonia of right lung due to infectious organism, unspecified part of lung 03/28/2023 10:39 AM EST COMPREHENSIVE METABOLIC PANEL Lab Routine Pneumonia of right lung due to infectious organism, unspecified part of lung 03/28/2023 10:39 AM EST CBC Lab Routine Pneumonia of right lung due to infectious organism, unspecified part of lung 03/28/2023 10:39 AM EST DIFFERENTIAL, AUTOMATED Lab Routine Pneumonia of right lung due to infectious organism, unspecified part of lung 03/28/2023 10:39 AM EST Health Maintenance Due Date Last [...] as of this encounter Visit Diagnoses Diagnosis Pneumonia of right lung due to infectious organism, unspecified part of lung documented in this encounter Care Teams Manager Mechanical Maintenance Relationship Specialty Start Date End Date Alida Aceves MD [address] [place] [address] PCP - General Internal Medicine 08/15/22 documented as of this encounter
--- OUTSIDE RECORDS SUMMARY | 2023-04-27 17:09 | External Medical Summary ---
Author Name Unknown Address Unknown Organization K01:[place] [facility] [place] 100 [facility] [address] Laboratory Report Ordering Provider Test Date Status KALIN YOUNG 03/28/2023 10:39:23 Final Observation Date Value Abnormality Reference (Units ) Status BUN 03/28/2023 10:39:23 33 Above high normal 6-20 (mg/dL) Final Creatinine 03/28/2023 10:39:23 0.8 0.6-1.2 (mg/dL) Final Glomerular filtration rate/1.73 sq M.predicted [Volume Rate/Area] in Serum, Plasma or Blood by Creatinine-based formula (CKD-EPI) 03/28/2023 10:39:23 >90 >=60 (mL/min) Final eGFR is calculated based on the CKD-EPI 2020 equation SODIUM 03/28/2023 10:39:23 131 Below low normal 135 -146 (mmol/L) Final Potassium 03/28/2023 10:39:23 4.9 3.5-5.1 (m mol/L) Final Cl 03/28/2023 10:39:23 91 Below low normal 98- 107 (mmol/L) Final CO2 03/28/2023 10:39:23 26 22-32 (mmo l/L) Final Anion gap 03/28/2023 10:39:23 14 7-15 (mmol /L) Final Glucose 03/28/2023 10:39:23 123 Above high normal 70 -120 (mg/dL) Final Albumin 03/28/2023 10:39:23 3.7 Below low normal 3.8 -5.0 (g/dL) Final AST (Aspartate aminotransferase) 03/28/2023 10:39:23 22 10-50 (U/L) Fin al Result may be falsely elevat ed due to hemolysis. Alk Phos 03/28/2023 10:39:23 88 35-130 (U/ L) Final Bilirubin, Total 03/28/2023 10:39:23 0.3 <=1 .2 (mg/dL) Final Calcium 03/28/2023 10:39:23 9.4 8.4-10.2 ( mg/dL) Final Protein 03/28/2023 10:39:23 7.4 6.0-8.3 (g /dL) Final ALT (Alanine aminotransferase) 03/28/2023 10:39:23 16 10-50 (U/L) Final Performing Location [facility] [place] [facility] [place][note 2] [address]. [facility] [address]
--- OUTSIDE RECORDS SUMMARY | 2023-04-27 17:09 | External Medical Summary | Summary of Care ---
Author Name Unknown Organization [facility] Address [address] [place] [address] Phone [phone] Care Team Providers Care Orchestra Musician Name Role Phone Alida Aceves MD Primary Care Provider [phone] Reason for Visit * Reason Onset Date Comments Appointment 03/26/2023 Encounter Details Date Type Department Care Team (Late st Contact Info) Description 03/26/2023 Telephone Hematology/Oncology [facility] Patti [place] 200 [place] [address] Tevin Kenney MD 200 [place] [address] Appointment Allergies No known active allergiesdocumented as of this encounter (statuses as of 03/26/2023) Medications Medication Sig Dispensed Refills Start Date End Date Status Nystatin 836824 UNIT/ML Mouth/Throat Suspension Swish and swallow 5 [...] directed through feeding tube via bolus syringe. 55856 mL 11 01/10/2023 Active Additional Information Patient [...] Description 03/28/2023 9:40 AM EST Office [facility] [address] [facility] [phone] Alida Aceves MD [address] [facility] [facility] [place] [address] 04/04/2023 11:20 AM EST Office Visit Nutrition & Weight Management, [facility] [place] [address] Penelope Celaya PA-C 132 [facility] [place] [address] 04/07/2023 2:00 PM EST [facility] Visit [facility], [facility] 132 [facility] [place] [address] Carissa Thomas, RN 132 [place] [address] 04/10/2023 9:15 AM EST Imaging Radiology [facility] 1st [facility] 132 [facility] [place] [address] 04/17/2023 9:30 AM EST Telemedicine [facility], [facility] [address] [place] [address] Andreia Horner PA-C [address] [place] [address] Anabel Hubbard, Community Health Terrestrial Ecologist [address] [place] [address] 07/02/2023 3:20 PM EDT Office Visit Pulmonary Medicine Brea Null [address] [place] [phone] Felipe Hernandez MD [address] [place] [address] Health Maintenance Due Date Last Done Comments [...] DISCUSS TOBACCO CESSATION (R EFER TO SMARTSET #1735) 10/16/2023 10/15/2022 O2 ASSESSMENT COMPLETED IN P [...] filedocumented as of this encounter Care Teams Orchestra Musician Relationship Specialty Start Date End Date Alida Aceves MD [address] [place] [address] PCP - General Internal Medicine 08/15/22 documented as of this encounter
--- OUTSIDE RECORDS SUMMARY | 2023-04-27 17:09 | External Medical Summary | Summary of Care ---
Author Name Unknown Organization [facility] Address [address] [place] [address] Phone [phone] Care Team Providers Care Carburizer Name Role Phone Alida Aceves MD Primary Care Provider Reason for Visit * Reason Onset Date Comments [facility]: Engagement 03/26/2023 Encounter Details Date Type Department Care Team (Late st Contact Info) Description 03/26/2023 12:45 PM EST Scheduled Telephone [facility], [facility] [address] [place] [address] Coordinator, [facility] 132 [facility] [place] [address] Allergies No known active allergiesdocumented as of this encounter (statuses as of 03/26/2023) Medications Medication Sig Dispensed Refills Start Date End Date Status Nystatin 571227 UNIT/ML Mouth/Throat Suspension Swish and swallow 5 [...] directed through feeding tube via bolus syringe. 74844 mL 11 01/10/2023 Active Additional Information Patient [...] Encounter - Aimee Young LPN - 03/26/2023 11:29 AM EST See 03/26/2023 telephone encounter documented in this encounter Plan of Treatment Upcoming Encounters Date Type Department Care Team (Late st Contact Info) Description 03/28/2023 9:40 AM EST Office Visit [facility] [address] [facility] [phone] Alida Aceves MD [address] [facility] [address] 04/04/2023 11:20 AM EST Office Visit Nutrition & Weight Management, [facility] [address] [place] [address] Penelope Celaya PA-C [address] [address] 04/07/2023 2:00 PM EST Home Visit [facility], [facility] 132 [facility] [address] Carissa Thomas, RN 132 [place] [address] 04/10/2023 9:15 AM EST Imaging Radiology [address] 132 [place] [address] 04/17/2023 9:30 AM EST Telemedicine [facility], [facility] [address] [facility] [place] [address] Andreia Horner PA-C [address] [place] [address] Anabel Hubbard, [facility] [address] [place] [address] 07/02/2023 3:20 PM EDT Office Visit Pulmonary Medicine Brea Null [address] [place] [phone] Felipe Hernandez MD [address] [place] [address] Health Maintenance Due Date Last Done Comments [...] TOBACCO CESSATION (Alma Delia FUENTES TO SMARTSET #[id number]) 10/16/2023 10/15/2022 O2 ASSESSMENT COMPLETED IN P [...] filedocumented as of this encounter Care Teams Carburizer Relationship Specialty Start Date End Date Alida Aceves MD [address] [place] [address] PCP - General Internal Medicine 08/15/22 documented as of this encounter
--- OUTSIDE RECORDS SUMMARY | 2023-04-27 17:09 | External Medical Summary | Summary of Care ---
Author Name Unknown Organization [facility] Address [address] [place] [address] Phone [phone] Care Team Providers Care Geospatial Applications Developer Name Role Phone Alida Aceves MD Primary Care Provider [phone] Reason for Visit * Reason Comments Chemotherapy C1D22 Cisplatin * Episode Based Medications (Routine) - Authorized Specialty Diagnoses / Procedures Referred By Contac t Referred To Contact Diagnoses Encounter for antineoplastic chemotherapy Cancer of base of tongue (HCC) Procedures MD CISPLATIN 10 MG INJECTION MD FOSAPREPITANT INJECTION MD INJ., APREPITANT, 1 MG Tevin Kenney MD 200 [place] [address] Anc Hem/Onc [facility] Patti [address] [place] [phone] Referral ID Status Reason Start Date Expiration Date V isits Requested Visits Authorized [id number] Authorized 03/13/2023 03/13/2024 999 [id number] Encounter Details Date Type Department Care Team (Latest Contact Info) Description 03/06/2023 8:45 AM EST Hem/Onc Treatment Hematology/Oncolog y Treatment, [address] [phone] Patti, Chair [address] [place] [address] Encounter for antineoplastic chemotherapy*; Cancer of base of tongue (HCC) Allergies No known active allergiesdocumented as of this encounter (statuses as of 04/02/2023) Medications Medication Sig Dispensed Refills Start Date End Date Status Nystatin 173717 UNIT/ML Mouth/Throat Suspension Swish and swallow 5 [...] directed through feeding tube via bolus syringe. 75567 mL 11 01/10/2023 Active Additional Information Patient [...] help. Patient had been prescribed oxycodone by [facility] but says this does not help. Patient [...] in place, using the feeding discussed with Soda Room Operator per their recommendations Nausea/Vomiting no Diarrhea [...] EST Office Visit Nutrition & Weight Management, [facility] [address] [place] [address] Penelope Celaya PA-C 132 [place] [address] 04/07/2023 2:00 PM EST Home Visit [facility] [place], [facility] [address] [place] [address] Carissa Thomas RN 132 [place] [address] 04/08/2023 9:10 AM EST Laboratory Laboratory [facility]atti [place] [address] [place], [place] [address] Patti, Lab Scen[address] [place], [place] [address] 04/08/2023 10:00 AM EST Hem/Onc Treatment Hematology/Oncology Treatment, [place] [address] [place], [place] [phone] Patti, Chair 6 Hem Onc [address] [place], [place] [address] 04/10/2023 9:15 AM EST Imaging Radiology [facility] 1st [facility], [place] [facility] [address] 04/17/2023 9:30 AM EST Telemedicine [facility], [facility] [address] [place] [address] Andreia Horner PA-C [address] [place] [address] Anabel Hubbard, Community Health Real Estate Instructor [address] [place] [address] 04/28/2023 9:00 AM EDT Office Visit [facility] [address] [place] [phone] Alida Aceves MD [address] [place] [address] 05/29/2023 8:15 AM EDT Office Visit Hematology/Oncology [facility] Patti [place] [address] [place], [place] [phone] Tevin Kenney MD [address] [place] [address] 07/02/2023 3:20 PM EDT Office Visit Pulmonary Medicine [place] [address] [place] [phone] Felipe Hernandez MD [address] [place] [address] Health Maintenance Due Date Last Done Comments [...] mL/hr documented in this encounter Care Teams Geospatial Applications Developer Relationship Specialty Start Date End Date Alida Aceves MD [address] [place] [facility] [place] [address] PCP - General Internal Medicine 08/15/22 documented as of this encounter
--- OUTSIDE RECORDS SUMMARY | 2023-04-27 17:09 | External Medical Summary | Summary of Care ---
Author Name Unknown Organization [facility] Address [address] [place] [address] Phone [phone] Care Team Providers Care Basket Braider Name Role Phone Alida Aceves MD Primary Care Provider [phone] Reason for Visit * Reason Onset Date Comments Appointment 03/31/2023 Palliative Care Order Encounter Details Date Type Department Care Team (Late st Contact Info) Description 03/31/2023 Telephone [facility] [address] [place] [address] Alida Aceves MD [address] [place] [address] Appointment (Palliative Care Order) Allergies No known active allergiesdocumented as of this encounter (statuses as of 03/31/2023) Medications Medication Sig Dispensed Refills Start Date End Date Status Nystatin 882166 UNIT/ML Mouth/Throat Suspension Swish and swallow 5 [...] directed through feeding tube via bolus syringe. 12285 mL 11 01/10/2023 Active Magnesium 400 MG [...] MCG/ACT Inhalation Aerosol Powder Breath Activated (umeclidinium [place]) Inhale 1 Puff by mouth in the [...] EST Office Visit Nutrition & Weight Management, [facility] [address] [place] [address] Penelope Celaya PA-C [address] [place] [address] 04/07/2023 2:00 PM EST Home Visit [facility], [facility] [address] [place] [address] Carissa Thomas, RN [address] [place] [address] 04/10/2023 9:15 AM EST Imaging Radiology [facility] 1st [facility] [address] [place] [address] 04/17/2023 9:30 AM EST Telemedicine [facility], [facility] [address] [place] [address] Andreia Horner PA-C [address] [facility] [address] Anabel Hubbard, Community Health Spinning Supervisor [address] [facility] [address] 04/28/2023 9:00 AM EDT [address] [address] Alida Aceves MD [address] [place], [place] [address] 05/29/2023 8:15 AM EDT Office Visit Hematology/Oncology [facility] 200 [place] [phone] Tevin Kenney MD 200 [facility] [place], [place] [address] 07/02/2023 3:20 PM EDT Office Visit Pulmonary Medicine Brea Null [address] [place] [address] Felipe Hernandez MD [address] [place] [address] Health Maintenance Due Date Last Done Comments [...] filedocumented as of this encounter Care Teams Basket Braider Relationship Specialty Start Date End Date Alida Aceves MD [address] [place] [address] PCP - General Internal Medicine 08/15/22 documented as of this encounter
--- OUTSIDE RECORDS SUMMARY | 2023-04-27 17:09 | External Medical Summary ---
Author Name Unknown Address Unknown Organization K01:[place] [facility] [address] [facility] [address] [facility] [address] Laboratory Report Ordering Provider Test Date Status KALIN YOUNG 03/28/2023 10:39:23 Final Observation Date Value Abnormality Reference (Units ) Status WBC, Total 03/28/2023 10:39:23 6.49 4.00-10.80 (K/uL) Final RBC 03/28/2023 10:39:23 3.22 4.50-5.25 (M/uL) Final Hemoglobin 03/28/2023 10:39:23 10.4 Below low normal 14.0-16.8 (g/dL) Final HCT 03/28/2023 10:39:23 32.3 Below low normal 40.0-48.4 (%) Final MCV 03/28/2023 10:39:23 100.3 82.0-99.5 (fL) Final MCH 03/28/2023 10:39:23 32.3 27.0-34.0 (pg) Final MCHC 03/28/2023 10:39:23 32.2 32.0-36.0 (g/dL) Final RDW 03/28/2023 10:39:23 17.6 11.5-15.5 (%) Final Platelets 03/28/2023 10:39:23 396 140-400 (K/uL) Final MPV 03/28/2023 10:39:23 8.9 6.6-11.1 (fL) Final Nucleated erythrocytes/100 leukocytes [Ratio] in Blood by Automated count 03/28/2023 10:39:23 0 <=0 (/100 WBCs) Final Performing Location LABORATORY C - [address] [facility] [address]
--- OUTSIDE RECORDS SUMMARY | 2023-04-27 17:09 | External Medical Summary | Summary of Care ---
Author Name Unknown Organization [facility] Address [address] [place] [address] Phone [phone] Care Team Providers Care Retail Sales Lead Name Role Phone Alida Aceves MD Primary Care Provider [phone] Reason for Referral * Evaluate & Treat - Unlimited Visits (Within 10 days (routine)) - Authorized Specialty Diagnoses / Procedures Referred By Contac t Referred To Contact Hospice and Palliative Medicine / Palliative Medicine Diagnoses Cancer of base of tongue (HCC) Protein-calorie malnutrition, severe (HCC) Centrilobular emphysema (HCC) Alida Aceves MD [address] [place] [address] Referral ID Status Reason Start Date Expiration Date Visits Requested Visits Authorized [id number] Authorized Specialty Services Required 03/28/2023 999 999 Question Answer Referral Priority Within 10 days (routine) Where should this appointment be scheduled? [facility] Reason for Referral: Cancer Palliative Medicine To Address: Pain & Symptom Management Referral Location Office * Evaluate & Treat - Unlimited Visits (Within 10 days (routine)) - Authorized Specialty Diagnoses / Procedures Referred By Contac t Referred To Contact HOME CARE / Home Care Diagnoses Cancer of base of tongue (HCC) Protein-calorie malnutrition, severe (HCC) Centrilobular emphysema (HCC) Alida Aceves MD [address] [place] [address] Referral ID Status Reason Start Date Expiration Date Visits Requested Visits Authorized [id number] Authorized Specialty Services Required 03/28/2023 999 999 Question Answer Referral Priority Within 10 days (routine) Where should this appointment be scheduled? [facility] Comments Documentation of Lybt-vz-Mjxn Encounter Addendum Patient Name: Gm Robins I certify that this patient is under my care and that I, or a nurse practitioner or physician's regulatory assistant working with me, had a kbgp-qm-hxnh encounter that meets the physician fjou-dx-rbdz encounter requirements with this patient on: Mar 28 2023 The encounter with the patient was in whole, or in part, for the following medical condition, which is the primary reason for home health care (List medical condition): Nursing care I certify that, based on my findings, the following services are medically necessary home health services: Nursing To provide the following care/treatments: (All hospitalists not following the patient after discharge should complete this section): intermediate Primary Care Physician to follow home care plan of care after discharge: Alida Aceves My clinical findings support the need for the above services because: tongue cancer, malnutrition, PNA Further, I certify that my clinical findings support that this patient is homebound (i.e. Absences from home require considerable and taxing effort and are for medical reasons or rastafarian services or infrequently or of short duration when for other reason) because: Malnutrition, cancer tongue, non verbal Physician Signature: Date of Signature: Physician Printed Name: Alida Aceves MD Reason for Visit * Reason Comments Hospital Follow-Up Encounter Details Date Type Department Care Team ([facility] Contact Info) Description 03/28/2023 9:40 AM EST Office Visit [place] [address] [place] [phone] Alida Aceves MD [address] [place] [address] Pneumonia of right lung due to infectious organism, unspecified part of lung*; Cancer of base of tongue (HCC); Protein-calorie malnutrition, severe (HCC); Centrilobular emphysema (HCC); Immunocompromised (HCC); History of tobacco use; Rhinitis, unspecified type Allergies No known active allergiesdocumented as of this encounter (statuses as of 03/28/2023) Medications Medication Sig Dispensed Refills Start Date End Date Status Nystatin 242983 UNIT/ML Mouth/Throat Suspension Swish and swallow 5 [...] directed through feeding tube via bolus syringe. 17735 mL 11 01/10/2023 Active Magnesium 400 MG [...] MCG/ACT Inhalation Aerosol Powder Breath Activated (umeclidinium [place]) Inhale 1 Puff by mouth in the [...] Sign Reading Time Taken Comments Blood Pressure 120/64 03/28/2023 9:52 AM EST Pulse 110 03/28/2023 9:52 AM EST Temperature 36.8 C (98.2 F) 03/28/2023 9:52 AM ES T Respiratory Rate 18 03/28/2023 9:52 AM EST Oxygen Saturation 97% 03/28/2023 9:52 AM EST Inhaled Oxygen Concentration - - Weight 55.7 kg (122 lb 12.8 oz) 03/28/2023 9:52 AM EST Height - - Body Mass Index 16.65 03/03/2023 3:01 PM EST documented in this encounter Patient Instructions * Patient Instructions* Alida Aceves MD - 03/28/2023 10:22 AM EST Try to use flutter several times per day to bring up mucus Start using incruse 1 puff daily for COPD Use albuterol inhaler as needed for cough, breathing documented in this encounter Progress Notes * Alida Aceves MD - 03/28/2023 10:25 AM EST Subjective Gm Robins is a 62 year old male. Chief Complaint Patient presents with Hospital Follow-Up HPI: Here for hospital f/u Admission Mar 19 discharge Mar 25 Dx : Rt PNA Immunocompromised, tongue cancer , malnutrition Taking cefdinir and doxy - one more wk F/u with oncology Still coughing a lot, rattling sounds, runny nose Known COPD< stopped smoking since he was diagnosed with tongue cancer Getting chemo, radiation Malnutrition , f/u with nutrition Taking all his meds Discussed about inhaler use Also will add singulair for runny nose , drainage Home health referral for intermediate And palliative referral today - pt agreed with it PMH: Patient Active Problem List Diagnosis Code Venous insufficiency I87.2 Family history of ischemic heart disease Z82.49 History of tobacco use Z87.891 Pain in limb M79.609 Cavitary lung disease J98.4 Centrilobular emphysema (HCC) J43.2 Cancer of base of tongue (HCC) C01 Encounter for antineoplastic chemotherapy Z51.11 Protein-calorie malnutrition, severe (HCC) E43 Immunocompromised (HCC) D84.9 Rhinitis J31.0 Current Outpatient Medications Medication Sig Dispense Refill Nystatin 490132 UNIT/ML Mouth/Throat Suspension Swish and swallow 5 mL in the morning and 5 mL at noon and 5 mL in the evening and 5 mL before bedtime. For thrush.. 240 mL 1 Ondansetron HCl 8 MG Oral Tablet (Zofran) Take 1 Tablet by mouth every 8 hours as needed for Nausea. 30 Tablet 3 Prochlorperazine Maleate 10 MG Oral Tablet (Compazine) Take 1 Tablet by mouth every 6 hours as needed for Nausea. 30 Tablet 3 Voriconazole 200 MG Oral Tablet (Vfend) Take 1 Tablet by mouth in the morning and 1 Tablet before bedtime. 60 Tablet 5 Nutren 1.5 Oral Liquid Administer 250 mL six times daily, as directed through feeding tube via bolus syringe. 36855 mL 11 Magnesium 400 MG Oral Capsule Take 1 Capsule by mouth in the morning. Doxycycline Hyclate 100 MG Oral Tablet Take 1 Tablet by mouth in the morning and 1 Tablet before bedtime. Cefdinir 300 MG Oral Capsule (Omnicef) Take 1 Capsule by mouth in the morning and 1 Capsule before bedtime. Morphine Sulfate (Concentrate) 100 MG/5ML Oral Solution Take 0.25 mL by mouth every 4 hours as needed for Pain, Breakthrough or Pain, Moderate. 30 mL 0 Incruse Ellipta 62.5 MCG/ACT Inhalation Aerosol Powder Breath Activated (umeclidinium [place]) Inhale 1 Puff by mouth in the morning. 12 Each 3 Albuterol Sulfate HFA 108 (90 Base) MCG/ACT Inhalation Aerosol Solution Inhale 2 Puffs by mouth every 6 hours as needed (cough, SOB). 18 g 5 Montelukast Sodium 10 MG Oral Tablet (Singulair) Take 1 Tablet by mouth in the morning. 90 Tablet 3 Mirtazapine 7.5 MG Oral Tablet (Remeron) Take 1 Tablet by mouth at bedtime. (Patient not taking: Reported on 01/15/2023) 30 Tablet 3 Current Facility-Administered Medications Medication Dose Route Frequency Provider Last Rate Last Admin Albuterol Sulfate (Proventil) (2.5 MG/3ML) 0.083% inhalation solution 2.5 mg 2.5 mg Nebulizer PRN Felipe Hernandez MD Albuterol Sulfate (Proventil) (5 MG/ML) 0.5% *conc* inhalation solution 2.5 mg 2.5 mg Nebulizer PRNEFelipe murphy MD 2.5 mg at 11/11/22 1235 Past Medical History: Diagnosis Date Cavitary lung disease Herpes zoster 02/11/1988 Tongue cancer (HCC) 2022 Past Surgical History: Procedure Laterality Date BRONCHOSCOPY, DX W/ EBUS, 1-2 NODES N/A 12/12/2022 BRONCHOSCOPY, RIGID/FLEXIBLE, INCLUDE FLUORO GUIDANCE, WHEN PERFORMED; W/ EBUS GUIDED TRANSTRACH AND/OR TRANSBRONCH SAMPLING, 1 OR 2 MEDIASTINAL AND/OR HILAR LYMPH NODE STATIONS/STRUCTURES performed by Felipe Hernandez MD at OR [facility] EGD, FLEXIBLE, PLACE GASTRO TUBE N/A 01/10/2023 ESOPHAGOGASTRODUODENOSCOPY (EGD), FLEXIBLE, TRANSORAL, WITH PERCUTANEOUS GASTROSTOMY INSERTION performed by Ra Bacon MD at OR [facility] REMOVAL OF APPENDIX 1968 [place] Review of patient's allergies indicates: No Known Allergies Family History Problem Relation Age of Onset Heart Disorder Mother around 50- [place] Hypertension Mother Heart Disorder Father around 50-MN-- cabg x 2 Hypertension Father Stroke Sister Heart attack Brother 60 Leukemia Brother Mental Disorder None Stroke None Family Status Relation Status Mo Fa Sis Alive Bro Bro Alive NONE (Not Specified) NONE (Not Specified) NONE (Not Specified) Social History Socioeconomic History Marital status: Single Spouse name: Fifi Number of children: 0 Years of education: Not on file Highest education level: Not on file Occupational History 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 Tobacco Use Smoking status: Every Day Packs/day: 0.10 Years: 35.00 Additional pack years: 0.00 Total pack years: 3.50 Types: Cigarettes Passive exposure: Current Smokeless tobacco: Never Tobacco comments: 10/15/22 0.25 ppd Vaping Use Vaping Use: Never used Substance and Sexual Activity Alcohol use: Yes Comment: rare Drug use: Never Comment: coffee q am Sexual activity: Yes Partners: Female Other Topics Concern Not on file Social History Narrative 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- 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: 3 year s collegeservice: nohobbies/interests: Softball, skiing, water skiing volleyballtransfusions: NoTattoos- noexercise: yesdiet: noreligion/episcopal: OLVmarital status: 2006children: 0gc: 0ggc: dogexposure to violence/threats/abuse: nothings to improve:smoking One dog No mold Oil heating Social Determinants of Health Financial Resource Strain: Not on file Food Insecurity: Patient Declined (03/27/2023) Hunger Vital Sign Worried About Running Out of Food in the Last Year: Patient declined Ran Out of Food in the Last Year: Patient declined Transportation Needs: Not on file Physical Activity: Not on file Stress: Not on file Social Connections: Not on file Intimate Partner Violence: Not on file Housing Stability: Not on file Review of Systems Constitutional: Positive for fatigue. Negative for activity change, appetite change, chills, diaphoresis, fever and unexpected weight change. HENT: Positive for congestion, postnasal drip, rhinorrhea, sore throat and trouble swallowing. Negative for sinus pressure, sinus pain and voice change. Eyes: Negative for visual disturbance. Respiratory: Positive for cough, chest tightness and shortness of breath. Negative for wheezing. Cardiovascular: Negative for chest pain, palpitations and leg swelling. Gastrointestinal: Negative for abdominal distention, abdominal pain, nausea and vomiting. Endocrine: Negative. Musculoskeletal: Negative for gait problem. Allergic/Immunologic: Positive for immunocompromised state. Neurological: Negative for dizziness and light-headedness. Psychiatric/Behavioral: Positive for sleep disturbance (cough). Negative for agitation and behavioral problems. The patient is nervous/anxious. Objective BP 120/64 | Pulse 110 | Temp 36.8 C (98.2 F) (Infrared ) | Resp 18 | Wt 55.7 kg (122 lb 12.8 oz) | SpO2 97% | BMI 16.65 kg/m | BSA 1.68 m Physical Exam Constitutional: General: He is not in acute distress. Appearance: Normal appearance. He is not ill-appearing, toxic-appearing or diaphoretic. HENT: Head: Normocephalic and atraumatic. Nose: Congestion and rhinorrhea present. Pulmonary: Effort: No respiratory distress. Breath sounds: No stridor. Rhonchi present. No wheezing or rales. Chest: Chest wall: No tenderness. Neurological: General: No focal deficit present. Mental Status: He is alert and oriented to person, place, and time. ASSESSMENT/PLAN: Pneumonia of right lung due to infectious organism, unspecified part of lung (Primary) - CBC WITH WBC DIFFERENTIAL; Future; Expected date: 03/28/2023 - COMPREHENSIVE METABOLIC PANEL; Future; Expected date: 03/28/2023 - DURABLE MEDICAL EQUIPMENT Cancer of base of tongue (HCC) - HOME HEALTH REFERRAL OP - PALLIATIVE CARE REFERRAL OP Protein-calorie malnutrition, severe (HCC) - HOME HEALTH REFERRAL OP - PALLIATIVE CARE REFERRAL OP Centrilobular emphysema (HCC) - HOME HEALTH REFERRAL OP - PALLIATIVE CARE REFERRAL OP - DURABLE MEDICAL EQUIPMENT Immunocompromised (HCC) History of tobacco use Rhinitis, unspecified type Other orders - Incruse Ellipta 62.5 MCG/ACT Inhalation Aerosol Powder Breath Activated (umeclidinium [place]); Inhale 1 Puff by mouth in the morning. - Albuterol Sulfate HFA 108 (90 Base) MCG/ACT Inhalation Aerosol Solution; Inhale 2 Puffs by mouth every 6 hours as needed (cough, SOB). - Montelukast Sodium 10 MG Oral Tablet (Singulair); Take 1 Tablet by mouth in the morning. Follow Up: Return in about 1 month (around 04/26/2023) for Clinic Visit. | For: Clinic Visit | Check-out note: Schedule with palliative care, home health And please fax to [facility] for DME ( flutter) Finish ABx Adding incruse inhaler Albuterol prn Acapella for chest PT F/u with oncology Singulair to try for rhinitis Alida Aceves MD documented in this encounter Nursing Notes * Nancy Powell LPN - 03/28/2023 9:48 AM EST Chief Complaint Patient presents with Hospital Follow-Up documented in this encounter Plan of Treatment Upcoming Encounters Date Type Department Care Team (Late st Contact Info) Description 03/31/2023 10:30 AM EST Hem/Onc Treatment Hematology/Oncology Treatment, [place] [address] [place] [address] Patti, Chair 11 Hem Onc Scenery [address] [facility] [place] [address] 04/04/2023 11:20 AM EST Office Visit Nutrition & Weight Management, [facility] [address] [place] [address] Penelope Celaya PA-C [address] [place] [address] 04/07/2023 2:00 PM EST Home Visit [facility], [facility] [address] [place] [address] [address] Carissa Thomas, RN [address] [place] [address] 04/10/2023 9:15 AM EST Imaging Radiology [facility]st [facility], [place] [address] [place] [address] 04/17/2023 9:30 AM EST Telemedicine [facility], [place] [address] [place] [address] Andreia Horner PA-C [address] [place] [address] Anabel Hubbard, Community [facility] [employer] [address] [place] [address] 04/28/2023 9:00 AM EDT Office Visit [facility] [address] [place] [phone] Alida Aceves MD [address] [place] [address] 05/29/2023 8:15 AM EDT Office Visit Hematology/Oncology [facility] [address] [place] [address] Tevin Kenney MD [address] [place] [address] 07/02/2023 3:20 PM EDT Office Visit Pulmonary Medicine Brea Null [address] [place] [phone] Felipe Hernandez MD [address] [place] [address] Pending Results Name Type Priority Associated Diagnoses Date /Time CBC WITH WBC DIFFERENTIAL Lab Routine Pneumonia of right lung due to infectious organism, unspecified part of lung 03/28/2023 10:39 AM EST COMPREHENSIVE METABOLIC PANEL Lab Routine Pneumonia of right lung due to infectious organism, unspecified part of lung 03/28/2023 10:39 AM EST Scheduled Orders Name Type Priority Associated Diagnoses Orde r Schedule CBC WITH WBC DIFFERENTIAL Lab Routine Pneumonia of right lung due to infectious organism, unspecified part of lung Expected: 03/28/2023 (Approximate), Expires: 03/28/2024 COMPREHENSIVE METABOLIC PANEL Lab Routine Pneumonia of right lung due to infectious organism, unspecified part of lung Expected: 03/28/2023 (Approximate), Expires: 03/27/2024 Scheduled Referrals Name Type Priority Associated Diagnoses Orde r Schedule HOME HEALTH REFERRAL OP Referral Within 10 days (routine) Cancer of base of tongue (HCC) Protein-calorie malnutrition, severe (HCC) Centrilobular emphysema (HCC) Ordered: 03/28/2023 PALLIATIVE CARE REFERRAL OP Referral Within 10 days (routine) Cancer of base of tongue (HCC) Protein-calorie malnutrition, severe (HCC) Centrilobular emphysema (HCC) Ordered: 03/28/2023 Health Maintenance Due Date Last Done Comments [...] due to infectious organism, unspecified part of lung- Primary Cancer of base of tongue (HCC) Malignant neoplasm of base of tongue Protein-calorie malnutrition, severe (HCC) Other severe protein-calorie malnutrition Centrilobular emphysema (HCC) Other emphysema Immunocompromised (HCC) Unspecified immunity deficiency History of tobacco use Personal history of tobacco use, presenting hazards to health Rhinitis, unspecified type documented in this encounter Care Teams Retail Sales Lead Relationship Specialty Start Date End Date Alida Aceves MD [address] [place] [address] PCP - General Internal Medicine 08/15/22 documented as of this encounter"
--- OUTSIDE RECORDS SUMMARY | 2023-04-27 17:09 | External Medical Summary ---
Author Name Unknown Address Unknown Organization K01:[facility] [place] [address] [facility] [address] Laboratory Report Ordering Provider Test Date Status KALIN YOUNG 03/28/2023 10:39:23 Final Observation Date Value Abnormality Reference (Units ) Status SYNC LEUKOCYTES IN BLOOD BY AUTOMATED COUNT 03/28/2023 10:39:23 6.49 4.00-10.80 (K/uL) Final Segs 03/28/2023 10:39:23 81.4 Above high normal 40.0-75.0 (%) Final Lymphs % 03/28/2023 10:39:23 4.3 Below low normal 18.0-42.0 (%) Final Monos 03/28/2023 10:39:23 11.1 Above high normal 1.0-11.0 (%) Final Eosinophils 03/28/2023 10:39:23 0.0 0.0-6.0 (%) Final Basos 03/28/2023 10:39:23 0.3 0.0-2.0 (%) Final Immature Granulocyte, Percent 03/28/2023 10:39:23 2.9 Above high normal 0.0-2.0 (%) Final Absolute Segs 03/28/2023 10:39:23 5.28 1.80-7.70 (K/uL) Final Lymphs, absolute 03/28/2023 10:39:23 0.28 Below low normal 1.00-4.80 (K/ul) Final Monos, Abs 03/28/2023 10:39:23 0.72 0.00-1.10 (K/uL) Final Eos, Abs 03/28/2023 10:39:23 0.00 0.00-0.70 (K/uL) Final Basos, Abs 03/28/2023 10:39:23 0.02 0.00-0.20 (K/uL) Final Immature Granulocytes, Number 03/28/2023 10:39:23 0.19 0.00-0.20 (K/uL) Final Performing Location [facility] [place] [facility] [address] [facility] [address]
--- OUTSIDE RECORDS SUMMARY | 2023-04-27 17:09 | External Medical Summary | Summary of Care ---
Author Name Unknown Organization [facility] Address [address] [place] [address] Phone [phone] Care Team Providers Care Associate Dean Name Role Phone Alida Aceves MD Primary Care Provider [phone] Reason for Visit * Reason Comments Chemotherapy C1D22 Cisplatin * Episode Based Medications (Routine) - Authorized Specialty Diagnoses / Procedures Referred By Contac t Referred To Contact Diagnoses Encounter for antineoplastic chemotherapy Cancer of base of tongue (HCC) Procedures OH CISPLATIN 10 MG INJECTION OH FOSAPREPITANT INJECTION [place] INJ., APREPITANT, 1 MG Tevin Kenney MD [address] [place] [address] Anc Hem/Onc [facility] Patti [address] [place] [phone] Referral ID Status Reason Start Date Expiration Date V isits Requested Visits Authorized [id number] Authorized 03/13/2023 03/13/2024 999 99 Encounter Details Date Type Department Care Team (Latest Contact Info) Description 03/06/2023 8:45 AM EST Hem/Onc Treatment Hematology/Oncolog y Treatment, [address] [address] Patti, Chair 4 Hem Onc [address] [place] [address] Encounter for antineoplastic chemotherapy*; Cancer of base of tongue (HCC) Allergies No known active allergiesdocumented as of this encounter (statuses as of 04/02/2023) Medications Medication Sig Dispensed Refills Start Date End Date Status Nystatin 230772 UNIT/ML Mouth/Throat Suspension Swish and swallow 5 [...] directed through feeding tube via bolus syringe. 94714 mL 11 01/10/2023 Active Additional Information Patient [...] help. Patient had been prescribed oxycodone by [facility] but says this does not help. [...] in place, using the feeding discussed with Registered Radiation Therapist per their recommendations Nausea/Vomiting no Diarrhea no [...] EST Office Visit Nutrition & Weight Management, [facility] [address] [address] Penelope Celaya PA-C [address] [place] [address] 04/07/2023 2:00 PM EST Home Visit [facility] [place], [facility] [address] [address] Carissa Thomas RN [address] [address] 04/08/2023 9:10 AM EST Laboratory Laboratory [facility] [place]atti [place] [address] [place], [place] [address] Patti, Lab Scenery [address] [place], [place] [address] 04/08/2023 10:00 AM EST Hem/Onc Treatment Hematology/Oncology Treatment, [place] [address] [place], [place] [phone] Patti, Chair 6 Hem Onc Scenery [address] [place], [place] [address] 04/10/2023 9:15 AM EST Imaging Radiology [facility]st [facility], [place] [address] [facility] [address] 04/17/2023 9:30 AM EST Telemedicine [facility], [place] [address] [place] [address] Andreia Horner PA-C [address] [place] [address] Anabel Hubbard, Community [facility] [employer]rentice [address] [place] [address] 04/28/2023 9:00 AM EDT Office Visit [facility] [address] [place] [phone] Alida Aceves MD [address] [place] [address] 05/29/2023 8:15 AM EDT Office Visit Hematology/Oncology [facility] Patti [place] [address] [place], [place] [phone] Tevin Kenney MD [address] [place] [address] 07/02/2023 3:20 PM EDT Office Visit Pulmonary Medicine [place] [address] [place] [place] [address] Felipe Hernandez MD [address] [place] [address] Health Maintenance Due Date Last Done Comments [...] mL/hr documented in this encounter Care Teams Associate Dean Relationship Specialty Start Date End Date Alida Aceves MD [address] [place] [address] PCP - General Internal Medicine 08/15/22 documented as of this encounter
--- OUTSIDE RECORDS SUMMARY | 2023-04-27 17:09 | External Medical Summary | Summary of Care ---
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 For thrush.. 240 mL 1 10/28/2022 Active Mirtazapine 7.5 MG Oral Tablet (Remeron)Indicat ions:Weight loss Take 1 Tablet by mouth at bedtime. 30 Tablet 3 10/30/2022 Active Additional Information Patient not taking.Reported on 01/15/2023 Ondansetron HCl 8 MG Oral Tablet (Zofran)Indicati ons:Cancer of base of tongue (HCC) Take 1 Tablet by mouth every 8 hours as needed for Nausea. 30 Tablet 3 01/09/2023 Active Additional Information Patient not taking.Reported on 01/15/2023 Prochlorperazine Maleate 10 MG Oral Tablet (Compazine)Indic ations:Cancer of base of tongue (HCC) Take 1 Tablet by mouth every 6 hours as needed for Nausea. 30 Tablet 3 01/09/2023 Active Additional Information Patient not taking.Reported on 01/15/2023 Voriconazole 200 MG Oral Tablet (Vfend) Take 1 Tablet by mouth in the morning and 1 Tablet before bedtime. 60 Tablet 5 01/09/2023 Active Nutren 1.5 Oral LiquidIndication s:Cancer of base of tongue (HCC) Administer 250 mL six times daily, as directed through feeding tube via bolus syringe. 64538 mL 11 01/10/2023 Active Additional Information Patient not taking.Reported on 01/15/2023 Magnesium 400 MG Oral Capsule Take 1 Capsule by mouth in the morning. 0 Active Doxycycline Hyclate 100 MG Oral Tablet Take 1 Tablet by mouth in the morning and 1 Tablet before bedtime. 0 Active Cefdinir 300 MG Oral Capsule (Omnicef) Take 1 Capsule by mouth in the morning and 1 Capsule before bedtime. 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 30 mL 0 03/06/2023 4 Discontinue d(Refill) Hospital, Clinic, or Other Facility [...] as of this encounter (statuses as of 03/27/2023) Active Problems Problem Noted Date Diagnosed Date Cancer of base of tongue 01/08/2023 Encounter for antineoplastic chemotherapy 2022 Centrilobular emphysema 11/11/2022 Cavitary lung disease 10/15/2022 Pain in limb 04/04/2008 Family history of ischemic heart disease 009 Routine medical exam 03/22/2008 Tobacco use disorder 03/22/2008 Venous insufficiency 10/14/2002 documented as of this encounter (statuses as of 03/27/2023) Resolved Problems Problem Noted Date Diagnosed Date Resolved Date 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 Patient refused Within the past 12 months, t he food you bought just didn't last and you didn't have money to get more. Patient refused Sex and Gender Information Value Date Recorded Sex Assigned at Male 03/27/2023 12:23 PM EST Gender Identity Male 03/27/2023 12:23 PM EST Sexual Orientation Choose not to disclose 2023 12:23 PM EST Job Start Date Occupation Industry Not on file Not on file Not on file documented as of this encounter Last Filed Vital Signs Vital Sign Reading Time Taken Comments Blood Pressure 112/74 03/27/2023 1:56 PM EST Pulse 87 03/27/2023 1:56 PM EST Temperature 36.4 C (97.5 F) 03/27/2023 1:56 PM ES T Respiratory Rate 18 03/27/2023 1:56 PM EST Oxygen Saturation 94% 03/27/2023 1:56 PM EST Inhaled Oxygen Concentration - - Weight 56.6 kg (124 lb 11.2 oz) 03/27/2023 1:56 PM EST Height - - Body Mass Index 16.91 03/03/2023 3:01 PM EST documented in this encounter Progress Notes * Tevin Kenney MD - 03/27/2023 11:00 AM EST GM AZEVEDO MR # [id number] :1960 62-year-old male, Date of consultation:01/08/2023 DIAGNOSIS: - right lateral tongue squamous cell carcinoma, well to moderately differentiated, biopsy was done in August of 2022 -HPV status unknown. -large primary tumor measuring about 6.2 cm, T4 primary tumor, possible N1, M0. CURRENT TREATMENT: - combined chemotherapy with weekly cisplatin and radiation treatment. (02/13/2023--) ( radiation treatment at [facility]) So far he is received 5 treatments with weekly cisplatin, recently he was admitted at [facility] for pulmonary infection and mucositis treatment was received on 03/13/2023. Would like to resume weekly cisplatin, he is also receiving radiation treatment, perhaps additional2 weeks' time. DIAGNOSTIC WORKUP: Biopsy from the right lateral tongue--> squamous cell carcinoma well to moderately differentiated (08/26/2022) PET-CT scan done on 09/25/2022: -focal uptake at the base of the tongue, right greater than left, SUV 12.7 -subcentimeter mediastinal lymph nodes noted in the chest, SUV of 3.76. -right upper lobe cavitary lesion with SUV of 8.43 (chronic infection versus cavitary metastatic disease). -no FDG avid disease noted in the abdomen or in the bones. CT neck (10/23/2022). 1. Large mass involving the right aspect [...] does not meet size criteria for pathologic involvement,but is viewed with suspicion given morphology and increased FDG accumulation on previous PET imaging. 3. Similar appearance of cavitary lesion of the right lung apex. This could be further evaluated with dedicated chest CT. CT chest (12/25/2022 ) -right upper lobe cavitary lesion (6.4 x 5.6 cm ) with soft tissue nodule measuring 1.4 x 2.3 cm -no lymphadenopathy in the chest -. CT neck (12/25/2022 ) - ulcerated right tongue mass crosses midline and involves the root of the tongue , measures about 6.2 x 3.1 x 2.6 cm ( previously 5.3 x 2.7 x 2.7 cm on PET-CT scan done in September of 2022) -likely increasing direct invasion of the right sublingual gland and the obstruction of the right submandibular duct -7 mm level 1b lymph node. Right upper lobe bronchoalveolar lavage, bronchial wash --> benign findings -lymph node 10 R--> Benign findings -lymph node 4 R--> benign findings OTHER IMPORTANT HISTORY: Smoking present. INTERVAL HISTORY: He has come to the clinic for the follow-up, he came to clinic by himself. He lives by himself, has the support from the neighbors. He does complain of throat pain, pain in the tongue, currently he is on liquid morphine 0.25 mg every 4 hourly, recently he was admitted at [facility] for pulmonary infection, pancytopenia, mucositis, now gradually recovering, he still on oral antibiotic treatment, no fever at this time, throat pain is currently around 5 to 6 on a 0 to 10 pain scale, ambulating well by himself, no leg edema, denies any tingling and numbness of extremities, no significant impaired hearing. No fall. No bleeding from the sites. Has been using PEG feeding tube on a regular basis, 6 cans in a day. Current weight around 124 which is stable. Past Medical History: Diagnosis Date Cavitary lung disease Herpes zoster 02/11/1988 Tongue cancer (HCC) 2022 Past Surgical History: Procedure Laterality Date BRONCHOSCOPY, DX W/ EBUS, 1-2 NODES N/A 12/12/2022 BRONCHOSCOPY, RIGID/FLEXIBLE, INCLUDE FLUORO GUIDANCE, WHEN PERFORMED; W/ EBUS GUIDED TRANSTRACH AND/OR TRANSBRONCH SAMPLING, 1 OR 2 MEDIASTINAL AND/OR HILAR LYMPH NODE STATIONS/STRUCTURES performed by Felipe Hernandez MD at OR [facility] EGD, FLEXIBLE, PLACE GASTRO TUBE N/A 01/10/2023 ESOPHAGOGASTRODUODENOSCOPY (EGD), FLEXIBLE, TRANSORAL, WITH PERCUTANEOUS GASTROSTOMY INSERTION performed by Ra Bacon MD at OR [facility] REMOVAL OF APPENDIX [address] [place] Current Outpatient Medications Medication Sig Dispense Refill Nystatin 454477 UNIT/ML Mouth/Throat Suspension Swish and swallow 5 mL in the morning and 5 mL at noon and 5 mL in the evening and 5 mL before bedtime. For thrush.. 240 mL 1 Mirtazapine 7.5 MG Oral Tablet (Remeron) Take 1 Tablet by mouth at bedtime. (Patient not taking: Reported on 01/15/2023) 30 Tablet 3 Ondansetron HCl 8 MG Oral Tablet (Zofran) Take 1 Tablet by mouth every 8 hours as needed for Nausea. (Patient not taking: Reported on 01/15/2023) 30 Tablet 3 Prochlorperazine Maleate 10 MG Oral Tablet (Compazine) Take 1 Tablet by mouth every 6 hours as needed for Nausea. (Patient not taking: Reported on 01/15/2023) 30 Tablet 3 Voriconazole 200 MG Oral Tablet (Vfend) Take 1 Tablet by mouth in the morning and 1 Tablet before bedtime. 60 Tablet 5 Nutren 1.5 Oral Liquid Administer 250 mL six times daily, as directed through feeding tube via bolus syringe. (Patient not taking: Reported on 01/15/2023) 84046 mL 11 Morphine Sulfate (Concentrate) 100 MG/5ML Oral Solution Take 0.25 mL by mouth every 4 hours as needed for Pain, Breakthrough or Pain, Moderate. 30 mL 0 Current Facility-Administered Medications Medication Dose Route Frequency Provider Last Rate Last Admin Albuterol Sulfate (Proventil) (2.5 MG/3ML) 0.083% inhalation solution 2.5 mg 2.5 mg Nebulizer PRN Felipe Hernandez MD Albuterol Sulfate (Proventil) (5 MG/ML) 0.5% *conc* inhalation solution 2.5 mg 2.5 mg Nebulizer Felipe Terrazas MD 2.5 mg at 11/11/22 1235 Family History Problem Relation Age of Onset Heart Disorder Mother around 50- SD Hypertension Mother Heart Disorder Father around 50-SD-- cabg x 2 Hypertension Father Stroke Sister Heart attack Brother 60 Leukemia Brother Mental Disorder None Stroke None Social History Socioeconomic History Marital status: Single Spouse name: Fifi Number of children: 0 Years of education: Not on file Highest education level: Not on file Occupational History 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 Tobacco Use Smoking status: Every Day Packs/day: [...] Not on file Social History Narrative 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: nohobbies/interests: Softball, skiing, water skiing volleyballtransfusions: NoTattoos- noexercise: yesdiet: noreligion/restorationist: OLVmarital status: 2006children: 0gc: 0ggc: dogexposure to violence/threats/abuse: nothings to improve:smoking One dog No mold Oil heating Social Determinants of Health Financial Resource Strain: Not on file Food Insecurity: Not on file Transportation Needs: Not on file Physical Activity: Not on file Stress: Not on file Social Connections: Not on file Intimate Partner Violence: Not on file Housing Stability: Not on file On Exam: BP 112/74 | Pulse 87 | Temp 36.4 C (97.5 F) (Tympanic) | Resp 18 | Wt 56.6 kg (124 lb 11.2 oz) | SpO2 94% | BMI 16.91 kg/m | BSA 1.7 m Constitutional: Patient is alert, cooperative and oriented x 3. Thin built man, Patient is in no acute distress. HEENT:No icterus, no pallor, Throat and pharynx normal. Sinuses are non-tender. Neck: Supple and without lymphadenopathy or masses. No JVD. No Palpable supraclavicular lymph nodes. Lungs: Clear to auscultation. Bilateral symmetric air entry. No wheezing or rhonchi. Cardiovascular: Normal heart sounds, no murmurs.Regular rate and rhythm. Abdomen: soft, nontender, no hepatomegaly, no splenomegaly. Bowel sounds are normal. Neurological: No gross focal neurological deficit; walks with a normal gait. Extremities: No finger clubbing, No cyanosis. No leg edema. Skin:: No skin rash. SPINE: No spinal or paraspinal tenderness. LABS: I reviewed his blood workup done when he was admitted at [facility]. IMAGING: As described above. ASSESSMENT AND PLAN: 62-year-old the male, a case of right lateral tongue squamous cell carcinoma, well to moderately differentiated, overall appears to be T4 primary tumor, possible N1, M0 on the recent PET-CT scan, he also has right upper lobe lung cavitary lesion, biopsy showed benign findings, AFP is negative ,culture negative for AFB. Fungal culture negative. His case was discussed at multidisciplinary clinic at [facility], they have recommended combined chemoradiation treatment. Currently he is receiving weekly cisplatin, so far he received 5 treatments, last week could not proceed with treatment because he was in the hospital for pulmonary infection, pancytopenia, oral mucositis. Now he has recovered well, radiation therapy resumed this week, planning to resume weekly cisplatin, perhaps additional 2 weeks of the treatment is left. He will continue liquid morphine for symptomatic treatment of the pain. Will continue to use PEG feeding tube. ( 6 cans in a day) He will continue to use Compazine Zofran for the symptomatic treatment nausea and vomiting I am planning to see him back in the clinic about 2 months. He will continue to have follow-up with Dr. Valladares. Dr. Tevin Kenney Hem/Onc (This note was completed using the dictation program Fluency Direct. As such, there may be misspellings word substitutions, or other variations that should not change the essence of the clinical content of this encounter note. If there is need for further clarification, please direct questions to the provider listed above.) documented in this encounter Nursing Notes * Maricruz Adan LPN - 03/27/2023 1:57 PM EST Patient identifed by name and birthdate Do you have any concerns about pain management for today's visit? YES Living Will or Advance Directive for Health Care as noted on the problem list. [facility] is a way you can talk to your provider on line through e-mail. Would you like to sign up? I can activate it for you? NO Filed Vitals: 03/27/23 1356 BP: 112/74 Pulse: 87 Resp: 18 Temp: 36.4 C (97.5 F) TempSrc: Tympanic SpO2: 94% Weight: 56.6 kg (124 lb 11.2 oz) Patient was instructed to not get up on the exam table/exam chair until directed and assisted by their provider; patient is to remain seated in the chair/ wheelchair/ exam table/ exam chair for fall prevention and safety reasons. Patient is aware to have assistance to step down off exam table/exam chair with personnel. Patient voiced full comprehension of instructions. documented in this encounter Plan of Treatment Upcoming Encounters Date Type Department Care Team (Late st Contact Info) Description 03/28/2023 9:40 AM EST Office Visit [facility] [address] [facility] [phone] Alida Aceves MD [address] [facility] [place] [address] 03/31/2023 10:30 AM EST Hem/Onc Treatment Hematology/Oncology Treatment, [place] [address] [place] [address] Patti, Chair 11 Hem Onc Scenery [address] [place] [address] 04/04/2023 11:20 AM EST Office Visit Nutrition & Weight Management, [facility] [address] [place] [address] Penelope Celaya PA-C [address] [place] [address] 04/07/2023 2:00 PM EST [facility] Visit [facility], [facility] [address] [facility] [place] [address] Carissa Thomas, RN [address] [facility] [place] [address] 04/10/2023 9:15 AM EST Imaging Radiology [address], [place] [address] [facility] [place] [address] 04/17/2023 9:30 AM EST Telemedicine [facility], [facility] [address] [place] [address] Andreia Horner PA-C [address] [place] [address] Anabel Hubbard, Community Health Crm System Administrator [address] [place] [address] 05/29/2023 8:15 AM EDT Office Visit [facility] [address] [place] [address] Tevin Kenney MD [address] [place] [address] 07/02/2023 3:20 PM EDT Office Visit Pulmonary Medicine Mur[facility] Nicolas [place] [address] [place] [phone] Felipe Hernandez MD [address] [place] [address] Health Maintenance Due Date Last Done Comments [...] DISCUSS TOBACCO CESSATION (R EFER TO SMARTSET #[id number]) 10/16/2023 10/15/2022 O2 ASSESSMENT COMPLETED IN P [...] Primary Malignant neoplasm of base of tongue 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
--- OUTSIDE RECORDS SUMMARY | 2023-04-27 17:09 | External Medical Summary | Summary of Care ---
Author Name Unknown Organization [facility] Address [address] [place] [address] Phone [phone] Care Team Providers Care Drawing Instructor Name Role Phone Alida Aceves MD Primary Care Provider [phone] Reason for Visit * Reason Comments Chemotherapy C1D22 Cisplatin * Episode Based Medications (Routine) - Authorized Specialty Diagnoses / Procedures Referred By Contac t Referred To Contact Diagnoses Encounter for antineoplastic chemotherapy Cancer of base of tongue (HCC) Procedures IN CISPLATIN 10 MG INJECTION IN FOSAPREPITANT INJECTION IN INJ., APREPITANT, 1 MG Tevin Kenney MD [address] [facility] [place] [address] Anc Hem/Onc [facility] Patti [address] [place] [phone] Referral ID Status Reason Start Date Expiration Date V isits Requested Visits Authorized [id number] Authorized 03/13/2023 03/13/2024 [id number] Encounter Details Date Type Department Care Team (Latest Contact Info) Description 03/06/2023 8:45 AM EST Hem/Onc Treatment Hematology/Oncolog y Treatment, [address] [phone] Patti, Chair [address] Hem On[address] [place] [address] Encounter for antineoplastic chemotherapy*; Cancer of base of tongue (HCC) Allergies No known active allergiesdocumented as of this encounter (statuses as of 04/02/2023) Medications Medication Sig Dispensed Refills Start Date End Date Status Nystatin 208410 UNIT/ML Mouth/Throat Suspension Swish and swallow 5 [...] directed through feeding tube via bolus syringe. 60629 mL 11 01/10/2023 Active Additional Information Patient [...] Patient had been prescribed oxycodone by [facility] but says this does not help. [...] in place, using the feeding discussed with Valve And Regulator Repairer per their recommendations Nausea/Vomiting no Diarrhea no [...] EST Office Visit Nutrition & Weight Management, [facility] [address] [address] Penelope Celaya PA-C [address] [place] [address] 04/07/2023 2:00 PM EST Home Visit [facility] [place], [facility] [address] [place] [address] Carissa Thomas RN [address] [place] [address] 04/08/2023 9:10 AM EST Laboratory Laboratory [facility] Patti [place] [address] [place], [place] [address] Patti, Lab Scenery [address] [place], [place] [address] 04/08/2023 10:00 AM EST Hem/Onc Treatment Hematology/Oncology Treatment, [place] [address] [place], [place] [phone] Patti, Chair 6 Hem Onc Scenery [address] [place], [place] [address] 04/10/2023 9:15 AM EST Imaging Radiology [facility] [address] [facility], [place] [address] [facility] [address] 04/17/2023 9:30 AM EST Telemedicine [facility], [place] [address] [place] [address] Andreia Horner PA-C [address] [place] [address] Anabel Hubbard, Community Health Financial Sales Representative [address] [place] [address] 04/28/2023 9:00 AM EDT Office Visit [facility] [address] [place] [phone] Alida Aceves MD [address] [place] [address] 05/29/2023 8:15 AM EDT Office Visit Hematology/Oncology [facility] Patti [place] [address] [place], [place] [phone] Tevin Kenney MD [address] [place] [address] 07/02/2023 3:20 PM EDT Office Visit Pulmonary Medicine [place] Brea Nicolas [address] [place] [phone] Felipe Hernandez MD [address] [place] [address] Health Maintenance Due Date Last Done Comments [...] mL/hr documented in this encounter Care Teams Drawing Instructor Relationship Specialty Start Date End Date Alida Aceves MD [address] [place] [facility] [place] [address] PCP - General Internal Medicine 08/15/22 documented as of this encounter
--- OUTSIDE RECORDS SUMMARY | 2023-04-27 17:10 | External Medical Summary | Summary of Care ---
Author Name Unknown Organization [facility] Address [address] [place] [address] Phone [phone] Care Team Providers Care Sewer Line Photo Inspector Name Role Phone Alida Aceves MD Primary Care Provider [phone] Reason for Visit * Reason Onset Date Comments Hospital Follow-Up 03/25/2023 Encounter Details Date Type Department Care Team (Late st Contact Info) Description 03/25/2023 Telephone Hematology/Oncology Treatment, [place] [address] [place] [address] Tevin Kenney MD [address] [place] [address] Hospital Follow-Up Allergies No known active allergiesdocumented as of this encounter (statuses as of 03/25/2023) Medications Medication Sig Dispensed Refills Start Date End Date Status Nystatin 907189 UNIT/ML Mouth/Throat Suspension Swish and swallow 5 [...] directed through feeding tube via bolus syringe. 54005 mL 11 01/10/2023 Active Additional Information Patient [...] as of this encounter (statuses as of 03/25/2023) Active Problems Problem Noted Date Diagnosed Date Cancer of base of tongue 01/08/2023 Encounter for antineoplastic chemotherapy 2022 Centrilobular emphysema 11/11/2022 Cavitary lung disease 10/15/2022 Pain in limb 04/04/2008 Family history of ischemic heart disease 009 Routine medical exam 03/22/2008 Tobacco use disorder 03/22/2008 Venous insufficiency 10/14/2002 documented as of this encounter (statuses as of 03/25/2023) Resolved Problems Problem Noted Date Diagnosed Date Resolved Date 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 Dates patient was admitted at [facility]: 03/19/23 to 03/25/23 with a primary diagnosis of febrile neutropenia, pneumonia. Patient discharged home on cefdinir and doxycycline x4 more days, also mag supplement daily. Labs on discharge: - WBC 2.16 - Hgb 8.3 - Plt 219 - ANC 1.42 Post discharge hospital visit not yet scheduled- will have patient added to see Dr Kenney tomorrow at 11:15am TT sent to [facility] rad/onc- per discharge summary, advised to follow up with radiation oncology for radiation therapy. MyG sent to patient. documented in this encounter Plan of Treatment Upcoming Encounters Date Type Department Care Team (Late st Contact Info) Description 03/26/2023 10:00 AM EST Nutrition Services Nutrition, [facility] [address] [facility] [place] [address] Jaqui Edouard RDN [address] [facility] [place] [address] 03/26/2023 11:30 AM EST Office Visit Hematology/Oncology [facility] [address] [facility] [place] [address] Tevin Kenney MD [facility] [address] 03/28/2023 9:40 AM EST Office Visit [address] [phone] Alida Aceves MD [address] [place] [address] 04/04/2023 11:20 AM EST Office Visit Nutrition & Weight Management, [facility] [address] [facility] [place] [address] Penelope Celaya PA-C [address] [facility] [place] [address] 04/10/2023 9:15 AM EST Imaging Radiology [facility] 1st [facility] [address] [facility] [place] [address] 07/02/2023 3:20 PM EDT Office Visit Pulmonary Medicine Brea Null [address] [place] [address] Felipe Hernandez MD [address] [place] [address] Health Maintenance Due Date Last Done Comments [...] TOBACCO CESSATION (Alma Delia FUENTES TO SMARTSET #[id number]) 10/16/2023 10/15/2022 O2 ASSESSMENT COMPLETED IN P [...] filedocumented as of this encounter Care Teams Sewer Line Photo Inspector Relationship Specialty Start Date End Date Alida Aceves MD [address] [place] [address] PCP - General Internal Medicine 08/15/22 documented as of this encounter
--- OUTSIDE RECORDS SUMMARY | 2023-04-27 17:10 | External Medical Summary | Summary of Care ---
Author Name Unknown Organization [facility] Address [address] [place] [address] Phone [phone] Care Team Providers Care Waitress Name Role Phone Alida Aceves MD Primary Care Provider [phone] Reason for Visit * Reason Onset Date Comments Hospital Follow-Up 03/25/2023 Encounter Details Date Type Department Care Team (Late st Contact Info) Description 03/25/2023 Telephone Hematology/Oncology Treatment, [place] [address] [place] [address] Tevin Kenney MD [address] [facility] [place] [address] Hospital Follow-Up Allergies No known active allergiesdocumented as of this encounter (statuses as of 03/25/2023) Medications Medication Sig Dispensed Refills Start Date End Date Status Nystatin 909392 UNIT/ML Mouth/Throat Suspension Swish and swallow 5 [...] directed through feeding tube via bolus syringe. 04829 mL 11 01/10/2023 Active Additional Information Patient [...] return call. Dates patient was admitted at [facility]: 03/19/23 to 03/25/23 with a primary diagnosis of febrile neutropenia, pneumonia. Patient discharged home on cefdinir and doxycycline x4 more days, also mag supplement daily. Labs on discharge: - WBC 2.16 - Hgb 8.3 - Plt 219 - ANC 1.42 Post discharge hospital visit not yet scheduled- will have patient added to see Dr Kenney tomorrow at 11:15am TT sent to [facility] rad/onc- per discharge summary, advised to follow up with radiation oncology for radiation therapy. MyG sent to patient. documented in this encounter Plan of Treatment Upcoming Encounters Date Type Department Care Team (Late st Contact Info) Description 03/26/2023 10:00 AM EST Nutrition Services Nutrition, [address] [place] [address] Jaqui Edouard, RDN [address] [place] [address] 03/26/2023 11:30 AM EST Office Visit Hematology/Oncology [facility] [address] [facility] [place] [address] Tevin Kenney MD [address] [facility] [place] [address] 03/28/2023 9:40 AM EST Office Visit [facility] [address] [place] [phone] Alida Aceves MD [address] [place] [address] 04/04/2023 11:20 AM EST Office Visit Nutrition & Weight Management, [facility] [address] [facility] [place] [address] Penelope Celaya PA-C [address] [place] [address] 04/10/2023 9:15 AM EST Imaging Radiology [address] [facility] [place] [address] 07/02/2023 3:20 PM EDT Office Visit Pulmonary Medicine Brea Null [address] [facility] [place] [phone] Felipe Hernandez MD [address] [facility] [place] [address] Health Maintenance Due Date Last Done Comments [...] DISCUSS TOBACCO CESSATION (R EFER TO SMARTSET #[id number]) 10/16/2023 10/15/2022 O2 ASSESSMENT COMPLETED IN P [...] filedocumented as of this encounter Care Teams Waitress Relationship Specialty Start Date End Date Alida Aceves MD [address] [place] [address] PCP - General Internal Medicine 08/15/22 documented as of this encounter
--- OUTSIDE RECORDS SUMMARY | 2023-04-27 17:10 | External Medical Summary | Summary of Care ---
Author Name Unknown Organization [facility] Address [address] [place] [address] Phone [phone] Care Team Providers Care Tumbler Plater Name Role Phone Alida Aceves MD Primary Care Provider [phone] Reason for Visit * Reason Onset Date Comments Appointment 03/25/2023 Encounter Details Date Type Department Care Team (Late st Contact Info) Description 03/25/2023 Telephone [facility], [facility] [address] [place] [address] Services, Scheduling [address] [place] [address] Appointment (/) Allergies No known active allergiesdocumented as of this encounter (statuses as of 03/25/2023) Medications Medication Sig Dispensed Refills Start Date End Date Status Nystatin 914731 UNIT/ML Mouth/Throat Suspension Swish and swallow 5 [...] directed through feeding tube via bolus syringe. 46131 mL 11 01/10/2023 Active Additional Information Patient [...] encounter Miscellaneous Notes * Telephone Encounter - Khushi Jane OSA - 03/25/2023 4:15 PM EST [facility] Engagement Attempt Engagement: Engagement Attempt 1: Unable to contact Engagement Attempt 2: No data was found Home Information: No data was found Advance Care Planning (ACP): No data was found Has Living Will or Advance Directive: No data was found Anticipated Sub-Program: Focused Care Management (3-9 months) Confirmation of Sub-Program Type (by care care team assistant): No data was found Handoff Information: Current care team notified via: [place] [employer] Current telemonitoring equipment: No data was found Called lmom for call back: William: 03/28 at 2:30pm AP Telemed documented in this encounter Plan of Treatment Upcoming Encounters Date Type Department Care Team (Late st Contact Info) Description 03/26/2023 10:00 AM EST Nutrition Services Nutrition, [facility] [address] [place] [address] Jaqui Edouard, JOHN [address] [place] [address] 03/26/2023 11:30 AM EST Office Visit Hematology/Oncology [facility] 200 [facility], [place] [address] Tevin Kenney MD [address] [facility] [address] 03/26/2023 12:45 PM EST Scheduled Telephone [facility], [facility] 132 [facility] [place] [address] Coordinator, [facility] 132 [facility] [place] [address] 03/28/2023 9:40 AM EST Office Visit [place] [address] [place] [address] Alida Aceves MD [address] [place] [address] 04/04/2023 11:20 AM EST Office Visit Nutrition & Weight Management, [facility] [address] [facility] [place] [address] Penelope Celaya PA-C 132 [facility] [place] [address] 04/10/2023 9:15 AM EST Imaging Radiology [facility] 1st [facility] [address] [facility] [place] [address] 07/02/2023 3:20 PM EDT Office Visit Pulmonary Medicine Brea Null [address] [place] [phone] Felipe Hernandez MD [address] [place] [address] Health Maintenance Due Date Last Done Comments [...] filedocumented as of this encounter Care Teams Tumbler Plater Relationship Specialty Start Date End Date Alida Aceves MD [address] [place] [address] PCP - General Internal Medicine 08/15/22 documented as of this encounter
--- OUTSIDE RECORDS SUMMARY | 2023-04-27 17:10 | External Medical Summary | Summary of Care ---
Author Name Unknown Organization [facility] Address [address] [facility] [place] [place] [address] Phone [phone] Care Team Providers Care Seal Skinner Name Role Phone Alida Aceves MD Primary Care Provider [phone] Reason for Visit * Reason Onset Date Comments [facility]: Screening 03/25/2023 Encounter Details Date Type Department Care Team (Late st Contact Info) Description 03/25/2023 Telephone [facility], [facility] [address] [facility] [place] [address] [facility], Nurse [facility] [address] [facility] [place] [address] [facility]: Screening Allergies No known active allergiesdocumented as of this encounter (statuses as of 03/25/2023) Medications Medication Sig Dispensed Refills Start Date End Date Status Nystatin 029256 UNIT/ML Mouth/Throat Suspension Swish and swallow 5 [...] directed through feeding tube via bolus syringe. 47460 mL 11 01/10/2023 Active Additional Information Patient [...] encounter Miscellaneous Notes * Telephone Encounter - Peggy Caba LPN - 03/25/2023 3:45 PM EST Images from the original note were not included. Gm Robins was referred as a potential candidate for enrollment for [facility]. A review of this chart was completed and: Gm meets criteria for [facility]. Jump to Initiation Referring care team was notified via : [employer] and [employer] D/c from [facility] Patient has PEG tube that's managed by [facility] Patient is non verbal and communicates: Peggy Caba LPN [facility] 03/25/2023,3:45 PM documented in this encounter Plan of Treatment Upcoming Encounters Date Type Department Care Team (Late st Contact Info) Description 03/26/2023 10:00 AM EST Nutrition Services Nutrition, [facility] [address] [place] [address] Jaqui Edouard RDN [address] [place] [address] 03/26/2023 11:30 AM EST Office Visit [facility]ology[facility]On[facility] 200 [facility] [place] [address] Tevin Kenney MD 200 [facility] [place] [address] 03/28/2023 9:40 AM EST Office Visit [facility] [address] [place] [address] Alida Aceves MD [address] [place] [address] 04/04/2023 11:20 AM EST Office Visit Nutrition & Weight Management, [facility] 132 [place] [address] Penelope eClaya PA-C 132 [place] [address] 04/10/2023 9:15 AM EST Imaging Radiology [facility] 1st [facility] 132 [place] [address] 07/02/2023 3:20 PM EDT Office Visit Pulmonary Medicine Brea Null [address] [facility] [place] [phone] Felipe Hernandez MD [address] [facility] [place] [address] Health Maintenance Due Date Last Done Comments [...] TOBACCO CESSATION (Alma Delia FUENTES TO SMARTSET #[id number]) 10/16/2023 10/15/2022 O2 ASSESSMENT COMPLETED IN P [...] filedocumented as of this encounter Care Teams Seal Skinner Relationship Specialty Start Date End Date Alida Aceves MD [address] [place] [address] PCP - General Internal Medicine 08/15/22 documented as of this encounter
--- OUTSIDE RECORDS SUMMARY | 2023-04-27 17:10 | External Medical Summary | Summary of Care ---
Author Name Unknown Organization [facility] Address [address] [place] [address] Phone [phone] Care Team Providers Care Autoglazier Name Role Phone Alida Aceves MD Primary Care Provider [phone] Reason for Visit * Reason Onset Date Comments Hospital Follow-Up 03/25/2023 Encounter Details Date Type Department Care Team (Late st Contact Info) Description 03/25/2023 Telephone Hematology/Oncology Treatment, [place] [address] [place] [address] Tevin Kenney MD [address] [facility] [place] [address] Hospital Follow-Up Allergies No known active allergiesdocumented as of this encounter (statuses as of 03/26/2023) Medications Medication Sig Dispensed Refills Start Date End Date Status Nystatin 836957 UNIT/ML Mouth/Throat Suspension Swish and swallow 5 [...] directed through feeding tube via bolus syringe. 38000 mL 11 01/10/2023 Active Additional Information Patient [...] call patients sister and brother- no answer. * Telephone Encounter - Lissett Miranda RN - 03/25/2023 3:50 PM EST Per rad/onc, they are resuming radiation tomorrow. Last planned day of radiation 04/11/23. * Telephone Encounter - Lissett Miranda RN - 03/25/2023 3:06 PM EST HEMATOLOGY/ONCOLOGY HOSPITAL DISCHARGE FOLLOW-UP Call placed to patient to follow up after hospital discharge. Left message for return call. Dates patient was admitted at [facility]: 03/19/23 to 03/25/23 with a primary diagnosis of febrile neutropenia, pneumonia. Patient discharged home on cefdinir and doxycycline x4 more days, also mag supplement daily. Labs on discharge: - WBC 2.16 - Hgb 8.3 - Plt 219 - ANC 1.42 Post discharge hospital visit not yet scheduled- will have patient added to see Dr Kenney tomorrow at 11:15am TT sent to [facility] rad/onc- per discharge summary, advised to follow up with radiation oncology for radiation therapy. MyG sent to patient. documented in this encounter Plan of Treatment Upcoming Encounters Date Type Department Care Team (Late st Contact Info) Description 03/26/2023 11:30 AM EST Office [facility] [address] [place] [address] Tevin Kenney MD [address] [place] [address] 03/26/2023 12:45 PM EST Scheduled Telephone [facility], [facility] [address] [place] [address] Coordinator, [facility] [address] [place] [address] 03/28/2023 9:40 AM EST Office Visit [place] [address] [place] [address] Alida Aceves MD [address] [place] [address] 04/04/2023 11:20 AM EST Office Visit Nutrition & Weight Management, [facility] [address] [place] [address] Penelope Celaya PA-C [address] [place] [address] 04/10/2023 9:15 AM EST Imaging Radiology [address] [place] [address] 07/02/2023 3:20 PM EDT Office Visit Pulmonary Medicine Brea Null [address] [place] [address] Felipe Hernandez MD [address] [place] [address] Health Maintenance Due Date Last Done Comments [...] DISCUSS TOBACCO CESSATION (R EFER TO SMARTSET #[id number]) 10/16/2023 10/15/2022 O2 ASSESSMENT COMPLETED IN P [...] filedocumented as of this encounter Care Teams Autoglazier Relationship Specialty Start Date End Date Alida Aceves [facility] [address] [facility] [address] PCP - General Internal Medicine 08/15/22 documented as of this encounter
--- NOTE | 2023-04-27 17:25 | Emergency Department Note ---
Impression & Plan Septic shock, Multifocal pneumonia, Acute respiratory failure with hypoxemia ED Provider Note NAME: JULIANNA AZEVEDO AGE: 62 SEX: M : 1960 ARRIVES VIA: Ambulance INFORMANT: Patient, ED PROVIDER(S): Catherine Kenney MD CHIEF COMPLAINT: Shortness of breath HPI: This is a 62-year-old gentleman with history of squamous cell carcinoma of the tongue, malnutrition, PEG tube status, right lung cavitary lesion, recent admission for pneumonia presenting for shortness of breath. Patient reported been having difficulty breathing with junky respirations for the past few days. His nieces are with the patient and states that they were seen by outfitter cabin on Friday. Since then patient has had increasing shortness of breath, has become febrile as of this morning. EMS was called due to difficulty breathing and upon arrival his oxygen was 74% with audible junky respirations. He improved with 15 L to 90%. Otherwise he has been having cough of clear sputum. He finished up chemotherapy about 2 weeks ago. ROS: See above HPI for pertinent positives & negatives. A total of 10 systems reviewed and were otherwise negative. PAST MEDICAL HISTORY: See Below PAST SURGICAL HISTORY: See Below FAMILY HISTORY: See Below SOCIAL HISTORY: See Below HOME MEDICATIONS: See Below ALLERGIES: See Below VITALS: See Below PHYSICAL EXAMINATION: General: Cachectic, chronically ill-appearing, temporal wasting Head: Normocephalic and atraumatic Eyes: Normal inspection, extraocular muscles intact Neck: Normal range of motion Respiratory: Rhonchi in all lung marley Cardiovascular: Tachycardic regular rate/rhythm, no murmur GI: soft, nontender, no guarding or rebound Extremities: nontender, moves all extremities Neuro: Moves all extremities spontaneously Skin: Warm, dry, and intact MEDICAL DECISION MAKING: This is 62-year-old male with history as above presenting for shortness of breath. Patient appears to have junky/rhonchorous respirations concerning for significant pneumonia versus CHF. She was on 70% on room air as per EMS. Now satting around 90-94 with 15 L. Patient was suctioned with respiratory therapy, deep suction, returning moderate amount of yellowish sputum. Will send cell for culture. Blood culture sent. -Patient was significantly febrile to 38.9, tachycardic. Blood pressures are soft but not hypotensive at this time. -Patient notes improvement after suctioning via RT. Will start on high flow nasal cannula for oxygenation at this time. -Chest x-ray as independent read by me as showing focal opacity in the right upper lung as well as bilateral lower lungs concerning for multifocal pneumonia -Lab is reviewed showing a leukopenia, worsening anemia to 7.4 -Lab work reveals no significant electrolyte disturbances. Patient's lactic acid is elevated 2.7. Troponin elevated at 45 currently - procalcitonin 15.6 -Patient appears to be septic as he is having increasing heart rates, now between 130 and 160 and in atrial fibrillation rhythm. His blood pressures continue to drop making him likely septic shock. He has been initially with such as 1 L normal saline, will give another. Also given empiric antibiotics with cefepime and vancomycin initially. -Patient is having worsening tachypnea and x-rays muscle use. Discussed goals of care with patient and family who are comfortable with intubation if necessary. -Patient also becoming hypotensive now requiring Levophed. -Patient was very moderately improved with respiratory status after BiPAP administration. -After discussion for admission with [facility] Hospitalist service, they requested ICU evaluation for possible further management/intubation. Discussed with ICU attending and midlevel. The recommend intubation as patient will likely require bronchoscopy. Advised family of patient's very critical status and risks with intubation. They understand and are comfortable with these risks. Patient also agrees for admission at this time -Patient intubated successfully with bilateral lung sounds. Patient's heart rate is now downtrending 160s prior to intubation, not come down to 130s. Endotracheal Intubation -Critical care PA at bedside during intubation. He has a bed currently ICU, they will take the patient to ICU and get CTA chest in route. Indication respiratory failure The patient was on 100% oxygen via NRB prior to the procedure. Suction, airway equipment, RSI drugs, respiratory equipment, and appropriate personnel were prepared prior to the initiation of the procedure. A time out was taken. Induction was performed with ketamine and succinylcholine. After observing the clinical benefit of the medications, the airway was easily visualized utilizing a video laryngoscope. A 7.5 size ETT tube was placed atraumatically to 25 cm using standard technique. The cuff inflated without signs of malfunction. There were bilateral breath sounds, positive colormetric change, no gastric sounds, a good capnography waveform, and post procedure pulse oximetry was 99%. Post intubation sedation and paralysis was administered using Fentanyl. There were no complications. Differential diagnosis: Sepsis, pneumonia, PE, ACS ER treatment provided: See below Diagnostics interpreted by me: ECG: ECG independently interpreted by me with Joaquin RVR, rate of 160, normal QRS, normal QTc, no ST segment elevations consistent with STEMI criteria Cardiac Monitoring: An order was placed for continuous cardiac monitoring. The monitor shows a rate of 135 with atrial fibrillation rhythm. Laboratory studies: As stated above and show below. Imaging studies: See below. Critical Care Note: I have personally spent 75 minutes of critical care time in the direct management of this patient. This includes bedside care, interpretation of diagnostic studies, and testing, discussion with consultants, patient, and family members, and other required patient management activities. This 75 minutes is in excess of all separately billable procedures. Past Med/Surg History Medical History Cavitary lesion of lung Severe malnutrition Cancer of oral cavity Venous insufficiency Cavitary lung disease Centrilobular emphysema Tobacco use disorder Surgical History S/P percutaneous endoscopic gastrostomy (PEG) tube placement S/P bronchoscopy Family History Mother Myocardial infarction Father Myocardial infarction Sister Myocardial infarction Social History Smoking Status: Former smoker Tobacco Type: Cigarettes Age Started Using Tobacco: 15; Second Hand Exposure: No; Do You Dip or Chew Tobacco: No; Hx Alcohol Use: No Hx Substance Use: No Preferred Language: Namibian Communication Ability: Impaired Communication Ability Comment: does have difficulty speaking due to oral pain Visual Impairment: No Limitations Hearing Ability: Normal Beliefs That Will Affect Care: None Current Living Situation: Alone Current Living Situation Comment: Alone in house current occupational status: employed 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 Feels Safe at Home: Yes Diet: Pureed during the past year weight has: decreased > 10 lbs Assistive Devices: None Allergies Allergies Allergy/AdvReac Type Severity Reaction Status Date / Time No Known Allergies Allergy Verified 04/27/23 18:46 Home Meds Home Medications Medication Instructions Recorded Confirmed ondansetron HCl 8 mg tablet 8 mg PO Q8H PRN Nausea And Vomiting 01/14/23 04/27/23 prochlorperazine maleate 10 mg 10 mg PO Q6H PRN Nausea And 01/14/23 04/27/23 tablet (Compazine) Vomiting morphine concentrate 100 mg/5 mL 5 mg PO Q4H PRN Pain 03/19/23 04/27/23 (20 mg/mL) oral solution albuterol sulfate 90 mcg/actuation 2 inh inhalation Q6H PRN Shortness 04/01/23 04/27/23 aerosol inhaler Of Breath/COUGH/WHEEZING Nutramigen Feedings 1 dose feeding tube DIRECTED 04/27/23 04/27/23 fentanyl 12 mcg/hr transdermal 12 mcg transdermal Q72H 04/27/23 04/27/23 patch tiotropium bromide 2.5 2 puff inhalation QAM 04/27/23 04/27/23 mcg/actuation mist for inhalation (Spiriva Respimat) Previous Rx's Medication Instructions Recorded Magic Mouthwash 300 mL mouthwash 10 ml mucous membrane ACHS PRN 01/27/23 mouth pain #300 mL Results & Data (ED) Vital Signs Vital Signs - 24 hr 04/27/23 16:57 04/27/23 16:57 04/27/23 17:03 Temperature 38.9 C H Temperature Source Rectal Pulse Rate 126 H Pulse Rate [Apical] Pulse Rate from SpO2 Sensor Respiratory Rate 30 H Respiratory Effort / Characteristics Accessory Muscle Use Labored Short of Breath Respiratory Depth Shallow Respiratory Pattern Tachypnea Blood Pressure 118/71 Blood Pressure [Right Arm] Blood Pressure Mean 86 Blood Pressure Mean [Right Arm] Pulse Oximetry 94 Oxygen Delivery Method Non-rebreather Non-rebreather Non-rebreather Oxygen Flow Rate 15 15 15 Fraction of Inspired Oxygen SaO2/FiO2 Ratio Sepsis Recent Fever Within 48 Hours Yes Sepsis New/Unexplained Change in Mental Status N/A Sepsis Action Taken by Nursing Physician Notified 04/27/23 17:05 04/27/23 17:09 04/27/23 17:15 Temperature Temperature Source Pulse Rate 128 H 127 H 128 H Pulse Rate [Apical] Pulse Rate from SpO2 Sensor 127 H 128 H Respiratory Rate 25 H 48 H Respiratory Effort / Characteristics Respiratory Depth Respiratory Pattern Blood Pressure 100/68 97/66 L Blood Pressure [Right Arm] Blood Pressure Mean 78 76 Blood Pressure Mean [Right Arm] Pulse Oximetry 94 94 Oxygen Delivery Method Non-rebreather High Flow Nasal Cannula Oxygen Flow Rate 15 40 Fraction of Inspired Oxygen 80 SaO2/FiO2 Ratio Sepsis Recent Fever Within 48 Hours Sepsis New/Unexplained Change in Mental Status Sepsis Action Taken by Nursing 04/27/23 17:20 04/27/23 17:59 04/27/23 18:00 Temperature Temperature Source Pulse Rate 159 H 171 H Pulse Rate [Apical] 128 H Pulse Rate from SpO2 Sensor 152 H 162 H Respiratory Rate 42 H 29 H 36 H Respiratory Effort / Characteristics Spontaneous Accessory Muscle Use Labored Short of Breath Respiratory Depth Respiratory Pattern Blood Pressure 105/75 87/72 L Blood Pressure [Right Arm] Blood Pressure Mean 85 77 Blood Pressure Mean [Right Arm] Pulse Oximetry 97 97 93 Oxygen Delivery Method High Flow Nasal Cannula Non-rebreather High Flow Nasal Cannula High Flow Nasal Cannula Oxygen Flow Rate 40 40 40 Fraction of Inspired Oxygen 80 80 80 SaO2/FiO2 Ratio Sepsis Recent Fever Within 48 Hours Sepsis New/Unexplained Change in Mental Status Sepsis Action Taken by Nursing 04/27/23 18:01 04/27/23 18:05 04/27/23 18:07 Temperature Temperature Source Pulse Rate 147 H 151 H 154 H Pulse Rate [Apical] Pulse Rate from SpO2 Sensor 140 H 160 H 155 H Respiratory Rate 37 H 34 H 36 H Respiratory Effort / Characteristics Respiratory Depth Respiratory Pattern Blood Pressure 95/58 L 92/68 L 99/66 L Blood Pressure [Right Arm] Blood Pressure Mean 70 76 77 Blood Pressure Mean [Right Arm] Pulse Oximetry 97 100 99 Oxygen Delivery Method High Flow Nasal Cannula High Flow Nasal Cannula High Flow Nasal Cannula Oxygen Flow Rate 40 40 40 Fraction of Inspired Oxygen 80 80 80 SaO2/FiO2 Ratio Sepsis Recent Fever Within 48 Hours Sepsis New/Unexplained Change in Mental Status Sepsis Action Taken by Nursing 04/27/23 18:09 04/27/23 18:10 04/27/23 18:20 Temperature Temperature Source Pulse Rate 152 H 160 H 166 H Pulse Rate [Apical] Pulse Rate from SpO2 Sensor 162 H 162 H Respiratory Rate 40 H 29 H Respiratory Effort / Characteristics Respiratory Depth Respiratory Pattern Blood Pressure 104/84 119/71 Blood Pressure [Right Arm] Blood Pressure Mean 90 87 Blood Pressure Mean [Right Arm] Pulse Oximetry 100 95 Oxygen Delivery Method High Flow Nasal Cannula High Flow Nasal Cannula Oxygen Flow Rate 40 40 Fraction of Inspired Oxygen 80 80 SaO2/FiO2 Ratio Sepsis Recent Fever Within 48 Hours Sepsis New/Unexplained Change in Mental Status Sepsis Action Taken by Nursing 04/27/23 18:31 04/27/23 18:40 04/27/23 18:45 Temperature Temperature Source Pulse Rate 152 H 149 H 167 H Pulse Rate [Apical] Pulse Rate from SpO2 Sensor 159 H 150 H Respiratory Rate 37 H 35 H 40 H Respiratory Effort / Characteristics Spontaneous Short of Breath Respiratory Depth Respiratory Pattern Tachypnea Blood Pressure 95/75 L 91/74 L Blood Pressure [Right Arm] Blood Pressure Mean 81 79 Blood Pressure Mean [Right Arm] Pulse Oximetry 100 95 95 Oxygen Delivery Method BiPAP BiPAP Oxygen Flow Rate Fraction of Inspired Oxygen 40 SaO2/FiO2 Ratio Sepsis Recent Fever Within 48 Hours Sepsis New/Unexplained Change in Mental Status Sepsis Action Taken by Nursing 04/27/23 18:50 04/27/23 19:00 04/27/23 19:10 Temperature Temperature Source Pulse Rate 157 H 168 H 164 H Pulse Rate [Apical] Pulse Rate from SpO2 Sensor 151 H 170 H 136 H Respiratory Rate 31 H 40 H 35 H Respiratory Effort / Characteristics Respiratory Depth Respiratory Pattern Blood Pressure 89/71 L 98/71 L Blood Pressure [Right Arm] Blood Pressure Mean 77 80 Blood Pressure Mean [Right Arm] Pulse Oximetry 91 84 L 88 L Oxygen Delivery Method BiPAP BiPAP Oxygen Flow Rate Fraction of Inspired Oxygen SaO2/FiO2 Ratio Sepsis Recent Fever Within 48 Hours Sepsis New/Unexplained Change in Mental Status Sepsis Action Taken by Nursing 04/27/23 19:10 04/27/23 19:17 04/27/23 19:17 Temperature Temperature Source Pulse Rate Pulse Rate [Apical] 167 H Pulse Rate from SpO2 Sensor Respiratory Rate 26 H Respiratory Effort / Characteristics Short of Breath Respiratory Depth Respiratory Pattern Blood Pressure 79/66 L 86/69 L Blood Pressure [Right Arm] 86/69 L Blood Pressure Mean 76 78 Blood Pressure Mean [Right Arm] 74 Pulse Oximetry 94 Oxygen Delivery Method BiPAP Oxygen Flow Rate Fraction of Inspired Oxygen 40 SaO2/FiO2 Ratio 235 Sepsis Recent Fever Within 48 Hours Sepsis New/Unexplained Change in Mental Status Sepsis Action Taken by Nursing 04/27/23 19:17 04/27/23 19:20 04/27/23 19:20 Temperature Temperature Source Pulse Rate 169 H 159 H Pulse Rate [Apical] Pulse Rate from SpO2 Sensor 167 H 151 H Respiratory Rate 34 H 35 H Respiratory Effort / Characteristics Respiratory Depth Respiratory Pattern Blood Pressure 75/61 L Blood Pressure [Right Arm] Blood Pressure Mean 65 Blood Pressure Mean [Right Arm] Pulse Oximetry 93 93 Oxygen Delivery Method Oxygen Flow Rate Fraction of Inspired Oxygen SaO2/FiO2 Ratio Sepsis Recent Fever Within 48 Hours Sepsis New/Unexplained Change in Mental Status Sepsis Action Taken by Nursing Laboratory Data 04/27/23 17:05 04/27/23 21:49 Lab Results 04/27/23 04/27/23 Range/Units 17:05 17:10 WBC 3.74 L (4.8-10.8) K/ul RBC 2.30 L (4.70-6.10) M/uL Hgb 7.4 L (14.0-18.0) g/dl Hct 22.6 L (42.0-52.0) % MCV 98.3 (80.0-100.0) fL MCH 32.2 (25.0-34.0) pg MCHC 32.7 (32.0-36.0) g/dL RDW Std Deviation 70.0 H (36.4-46.3) fL RDW Coeff of Suraj 20.0 H (11.5-14.5) % Plt Count 90 L (130-400) K/uL MPV 11.1 (9.4-12.4) fL Immature Gran % (Auto) 0.3 % Neut % (Auto) 94.4 % Lymph % (Auto) 2.4 % Person % (Auto) 2.1 % Eos % (Auto) 0.0 % Baso % (Auto) 0.8 % Neut # (Auto) 3.53 (1.40-6.50) K/uL Lymph # (Auto) 0.09 L (1.20-3.40) K/uL Person # (Auto) 0.08 L (0.11-0.59) K/uL Eos # (Auto) 0.00 (0.00-0.50) K/uL Baso # (Auto) 0.03 (0.00-0.20) K/uL Immature Gran # (Auto) 0.01 (0.01-0.20) K/uL Absolute Nucleated RBC 0.03 (0.00-0.12) K/uL Nucleated RBC % (auto) 0.8 % Sodium 141 (136-145) mmol/L Potassium 4.0 (3.5-5.1) mmol/L Chloride 100 (98-107) mmol/L Carbon Dioxide 30 (21-32) mmol/L Anion Gap 11 (3-11) BUN 64 H (6-23) mg/dl Creatinine 1.10 (0.6-1.4) mg/dl Est Cr Clr Drug Dosing 55.2 ml/min Est GFR ( Amer) 82.4 ml/min Est GFR (Non-Af Amer) 71.1 ml/min BUN/Creatinine Ratio 58.2 H (10-20) Glucose 128 H (70-99(Fasting)) mg/dl Lactate 3.7 H* (0.4-2.0) mmol/L Calcium 8.3 L (8.6-10.3) mg/dl Magnesium 2.3 (1.7-2.4) mg/dl Total Bilirubin 1.2 H (0.2-1.0) mg/dl Direct Bilirubin 0.7 H (0-0.2) mg/dl AST 65 H (13-39) U/L ALT 50 (7-52) U/L Alkaline Phosphatase 84 (34-104) U/L Troponin I High Sens 45.0 H (0-20) pg/ml Total Protein 6.2 (6.0-8.3) gm/dl Albumin 2.3 L (3.4-5.0) gm/dl Procalcitonin 15.60 H (0-0.5) ng/ml Adenovirus (PCR) Not Detected (NotDetected) B. pertussis DNA (PCR) Not Detected (NotDetected) B.parapertussis DNA PCR Not Detected (NotDetected) C. pneumoniae DNA (PCR) Not Detected (NotDetected) Coronavirus OC43 (PCR) Not Detected (NotDetected) Coronavirus HKU1 (PCR) Not Detected (NotDetected) Coronavirus 229E (PCR) Not Detected (NotDetected) SARS-CoV-2 (PCR) Not Detected (NotDetected) Coronavirus NL63 (PCR) Not Detected (NotDetected) Human Metapneumovir PCR Not Detected (NotDetected) Influenza Type A (PCR) Not Detected (NotDetected) Influenza Type B (PCR) Not Detected (NotDetected) M. pneumoniae (PCR) Not Detected (NotDetected) Parainfluenza 1 (PCR) Not Detected (NotDetected) Parainfluenza 2 (PCR) Not Detected (NotDetected) Parainfluenza 3 (PCR) Not Detected (NotDetected) Parainfluenza 4 (PCR) Not Detected (NotDetected) RSV (PCR) Not Detected (NotDetected) Entero/Rhino (PCR) Not Detected (NotDetected) Administered Medications Fentanyl Citrate (Fentanyl Citrate Pf 100 Mcg/2 Ml Vial) 50 mcg IV Q2H PRN PRN Reason: Moderate Pain (4,5,6) on NRS Stop: 05/11/23 20:51 Last Admin: 04/27/23 21:55 Dose: 50 mcg Documented By: Admin: 04/27/23 21:10 Dose: 50 mcg Documented By: TMG Norepinephrine Bitartrate (Levophed/D5w) 4 mg in 250 mls @ 89.46 mls/hr IV .Q2H48M [facility]; Protocol Stop: 05/27/23 19:44 Last Admin: 04/27/23 23:32 Dose: 0.42 mcg/kg/min, 89.5 mls/hr Documented By: TMG Co-signed By: TLM Titration: 04/27/23 23:32 Dose: Infused Documented By: TMG Co-signed By: TLM Titration: 04/27/23 23:14 Dose: 0.42 mcg/kg/min, 89.5 mls/hr Documented By: Titration: 04/27/23 21:55 Dose: 0.4 mcg/kg/min, 85.2 mls/hr Documented By: Titration: 04/27/23 20:54 Dose: 0.2 mcg/kg/min, 42.6 mls/hr Documented By: Titration: 04/27/23 20:08 Dose: 0.07 mcg/kg/min, 14.9 mls/hr Documented By: Admin: 04/27/23 19:42 Dose: 0.05 mcg/kg/min, 10.7 mls/hr Documented By: AAW Co-signed By: MMG Amiodarone HCl/Dextrose (Nexterone / D5w) 360 mg in 200 mls @ 33.333 mls/hr IV ONE ONE Stop: 04/28/23 03:09 Last Admin: 04/27/23 21:09 Dose: 1 mg/min, 33.3 mls/hr Documented By: TMG Co-signed By: MARCELO Vasopressin 20 units/ Sodium (Chloride) 101 mls @ 12.12 mls/hr IV .Q8H20M [facility] Stop: 05/27/23 21:29 Last Admin: 04/27/23 21:54 Dose: 0.04 unit/min, 12.1 mls/hr Documented By: TMG Co-signed By: MARCELO Fentanyl Citrate (Fentanyl Citrate) 2,500 mcg in 250 mls @ 12.5 mls/hr IV .Q20H [facility]; Protocol Stop: 05/11/23 22:14 Last Titration: 04/27/23 23:31 Dose: 125 mcg/hr, 12.5 mls/hr Documented By: TMG Co-signed By: MARCELO Titration: 04/27/23 23:00 Dose: 100 mcg/hr, 10 mls/hr Documented By: TMG Co-signed By: MARCELO Titration: 04/27/23 22:40 Dose: 75 mcg/hr, 7.5 mls/hr Documented By: TMG Co-signed By: MARCELO Admin: 04/27/23 22:26 Dose: 25 mcg/hr, 2.5 mls/hr Documented By: TMG Co-signed By: MARCELO Heparin Sodium/Dextrose (Heparin Sodium/Dextrose) 25,000 units in 500 mls @ 18 mls/hr IV .Q24H [facility]; Protocol Stop: 05/27/23 23:44 Last Admin: 04/28/23 00:38 Dose: 900 units/hr, 18 mls/hr Documented By: TMG Co-signed By: CF Miscellaneous (Icu Protocol For Hyperglycemia) 1 each N/A ACHS [facility] Stop: 04/29/23 20:59 Last Admin: 04/27/23 22:28 Dose: 1 each Documented By: TMG Discontinued Medications Amiodarone HCl/Dextrose (Amiodarone 150mg / 100ml D5w) Confirm Administered Dose 150 mg IV .STK-MED ONE Stop: 04/27/23 20:48 Last Admin: 04/27/23 21:10 Dose: Not Given Documented By: TMG Amiodarone HCl/Dextrose (Amiodarone 360mg / 200ml D5w) Confirm Administered Dose 360 mg IV .STK-MED ONE Stop: 04/27/23 20:57 Last Admin: 04/27/23 21:09 Dose: Not Given Documented By: PALMA Fentanyl Citrate (Fentanyl Citrate Pf 100 Mcg/2 Ml Vial) Confirm Administered Dose 100 mcg .ROUTE .STK-MED ONE Stop: 04/27/23 20:51 Last Admin: 04/27/23 21:57 Dose: Not Given Documented By: PALMA Fentanyl Citrate (Fentanyl Citrate 2,500 Mcg/250 Ml Bag) Confirm Administered Dose 2,500 mcg IV .STK-MED ONE Stop: 04/27/23 21:43 Last Admin: 04/27/23 22:26 Dose: Not Given Documented By: PALMA Heparin Sodium (Porcine) (Heparin Sod (Porcine) 1000 Unit/Ml) 4,000 units IV NOW ONE Stop: 04/27/23 23:37 Last Admin: 04/28/23 00:39 Dose: 4,000 units Documented By: PALMA Co-signed By: ISATU Sodium Chloride (Nss) 1,000 mls @ 999 mls/hr IV .Q1H1M XI Stop: 04/27/23 18:30 Last Infusion: 04/27/23 19:08 Dose: Infused Documented By: Admin: 04/27/23 17:32 Dose: 999 mls/hr Documented By: CARLOTA Cefepime HCl (Maxipime) 2,000 mg in 20 mls @ 5 mls/min IV NOW STA; Protocol Stop: 04/27/23 17:23 Last Admin: 04/27/23 17:32 Dose: 5 mls/min Documented By: CARLOTA Acetaminophen (Ofirmev) 1,000 mg in 100 mls @ 400 mls/hr IV NOW STA Stop: 04/27/23 17:34 Last Infusion: 04/27/23 19:07 Dose: Infused Documented By: Admin: 04/27/23 17:32 Dose: 400 mls/hr Documented By: CARLOTA Vancomycin HCl 1,250 mg/ (Sodium Chloride) 525 mls @ 200 mls/hr IV NOW ONE Stop: 04/27/23 20:46 Last Infusion: 04/27/23 23:56 Dose: Infused Documented By: Admin: 04/27/23 19:08 Dose: 200 mls/hr Documented By: LARRY Sodium Chloride (Nss) 1,000 mls @ 999 mls/hr IV .Q1H1M ONE Stop: 04/27/23 20:32 Last Infusion: 04/27/23 19:36 Dose: Infused Documented By: Admin: 04/27/23 18:00 Dose: 999 mls/hr Documented By: CARLOTA Amiodarone HCl/Dextrose (Nexterone / D5w) 150 mg in 100 mls @ 600 mls/hr IV ONE ONE Stop: 04/27/23 21:09 Last Infusion: 04/27/23 23:56 Dose: Infused Documented By: PALMA Co-signed By: ALEXI Admin: 04/27/23 21:09 Dose: 600 mls/hr Documented By: PALMA Co-signed By: MARCELO Propofol (Diprivan) 1,000 mg in 100 mls @ 6.816 mls/hr IV .[id number] [facility]; Protocol Stop: 04/30/23 20:51 Last Titration: 04/27/23 23:56 Dose: Infused Documented By: Admin: 04/27/23 21:56 Dose: 20 mcg/kg/min, 6.8 mls/hr Documented By: PALMA Co-signed By: MARCELO Azithromycin 500 mg/ Dextrose 255 mls @ 127.5 mls/hr IV NOW STA Stop: 04/28/23 00:07 Last Admin: 04/27/23 22:26 Dose: 127.5 mls/hr Documented By: PALMA Lactated Ringer's (Lr) 1,000 mls @ 999 mls/hr IV .Q1H1M ONE Stop: 04/27/23 23:10 Last Infusion: 04/27/23 23:56 Dose: Infused Documented By: Admin: 04/27/23 22:28 Dose: 999 mls/hr Documented By: PALMA Ioversol (Optiray 320 125ml) 119 ml IV ONCE ONE Stop: 04/27/23 20:20 Last Admin: 04/27/23 20:20 Dose: 119 ml Documented By: GAETANO Miscellaneous (Rapid Sequence Induction Bag) Confirm Administered Dose 1 each N/A .STK-MED ONE Stop: 04/27/23 18:37 Last Admin: 04/27/23 21:57 Dose: Not Given Documented By: TMG Miscellaneous (Stat Iv Infusion Titration Per Protocol) 1 each N/A NOW STA Stop: 04/27/23 19:38 Last Admin: 04/27/23 21:57 Dose: Not Given Documented By: TMG Propofol (Propofol Iv Emulsion 10 Mg/Ml 100 Ml Vial) Confirm Administered Dose 1,000 mg IV .STK-MED ONE Stop: 04/27/23 20:35 Last Admin: 04/27/23 21:10 Dose: Not Given Documented By: TMG Imaging Data Radiologist's Impression: Chest X-Ray 04/27/23 17:20 XR chest 1V portable HISTORY: Sepsis COMPARISON: Chest 09/22/2023. FINDINGS: No pneumothorax. Emphysema again noted. Trace right pleural effusion. Patchy bibasilar airspace opacities and the irregular right upper lobe airspace opacity have progressed. A gastrostomy tube is noted within the left upper quadrant. No evidence for pulmonary edema. No acute fractures. IMPRESSION: 1. Interval progression of bilateral airspace opacities suggestive of a pneumonia. 2. Continued follow-up recommended to ensure resolution of the right upper lobe irregular opacity. 3. Trace right pleural effusion. ACT 112: Negative or not required by law. Electronically signed by: Alex Pena M.D. 04/27/2023 6:15 PM Discharge Plan Visit Data Chief Complaint: Shortness of Breath/Dyspnea Stated Complaint: CHEST PAIN ED Provider: Catherine Kenney Discharge Problem: Septic shock, Multifocal pneumonia, Acute respiratory failure with hypoxemia Patient Disposition: Admitted As Inpatient Discharge Instructions Interventions: ED Discharge Assessment Last Done: 04/27/23 20:30
[2023-04-27] MEDS: SODIUM CHLORIDE 0.9% 1,000 ML IV SCH (17:32)
[2023-04-27] MEDS: ACETAMINOPHEN 1,000 MG/100 ML VIAL IV STA (17:32)
[2023-04-27] MEDS: CEFEPIME 2,000 MG/20 ML VIAL IV STA (17:32)
[2023-04-27 17:45] LABS: Hematocrit (blood only) 22.6 % (42.0-52.0); Hemoglobin 7.4 g/dl (14.0-18.0); Mean Corpuscular Hemoglobin 32.2 pg (25.0-34.0); Mean Corpuscular Hgb Conc 32.7 g/dL (32.0-36.0); Mean Corpuscular Volume 98.3 fL (80.0-100.0); Mean Platelet Volume 11.1 fL (9.4-12.4); Nucleated RBC # (auto) 0.03 K/uL (0.00-0.12); Nucleated RBC % (auto) 0.8 %; Platelet Count 90 K/uL (130-400); White Blood Count 3.74 K/ul (4.8-10.8)
[2023-04-27 17:56] LABS: Albumin Level 2.3 gm/dl (3.4-5.0); BUN Creatinine Ratio 58.2 (10-20); Bilirubin Direct 0.7 mg/dl (0-0.2); Bilirubin,Total 1.2 mg/dl (0.2-1.0); Calcium 8.3 mg/dl (8.6-10.3); Creatinine Clr Calc Pharmacy 55.2 ml/min; Est GFR (African American) 82.4 ml/min; Est GFR (Non-African American) 71.1 ml/min; Magnesium 2.3 mg/dl (1.7-2.4); Total Protein 6.2 gm/dl (6.0-8.3)
[2023-04-27] MEDS: SODIUM CHLORIDE 0.9% 1,000 ML IV ONE (18:00)
[2023-04-27] MEDS ORDERED: VANCOMYCIN CONSULT ACTIVE PRN (18:09)
[2023-04-27 18:12] LABS: Basophils # (auto) 0.03 K/uL (0.00-0.20); Basophils % (auto) 0.8 %; Immature Granulocytes # (auto) 0.01 K/uL (0.01-0.20); Immature Granulocytes % (auto) 0.3 %; Lymphocytes # (auto) 0.09 K/uL (1.20-3.40); Lymphocytes % (auto) 2.4 %; Monocytes # (auto) 0.08 K/uL (0.11-0.59); Monocytes % (auto) 2.1 %; Neutrophils # (auto) 3.53 K/uL (1.40-6.50); Neutrophils % (auto) 94.4 %
--- NOTE | 2023-04-27 18:17 | XRay Report ---
XR chest 1V portable HISTORY: Sepsis COMPARISON: Chest 09/22/2023. FINDINGS: No pneumothorax. Emphysema again noted. Trace right pleural effusion. Patchy bibasilar airs pace opacities and the irregular right upper lobe airspace opacity have progressed. A gastrostomy tub e is noted within the left upper quadrant. No evidence for pulmonary edema. No acute fractures. IMPRESSION: 1. Interval progression of bilateral airspace opacities suggestive of a pneumonia. 2. Continued follow-up recommended to ensure resolution of the right upper lobe irregular opacity. 3. Trace right pleural effusion. ACT 112: Negative or not required by law. Electronically signed by: Alex Pena M.D. 04/27/2023 6:15 PM
[2023-04-27 18:30] LABS: Adenovirus PCR Not Detected (NotDetected); Bordetella parapertussis PCR Not Detected (NotDetected); Bordetella pertussis PCR Not Detected (NotDetected); Chlamydia pneumoniae PCR Not Detected (NotDetected); Coronavirus 229E PCR Not Detected (NotDetected); Coronavirus CoV-2 (COVID19)PCR Not Detected (NotDetected); Coronavirus HKU1 PCR Not Detected (NotDetected); Coronavirus NL63 PCR Not Detected (NotDetected); Coronavirus OC43PCR Not Detected (NotDetected); Human Metapneumovirus PCR Not Detected (NotDetected); Influenza A PCR Not Detected (NotDetected); Influenza B PCR Not Detected (NotDetected); Mycoplasma pneumoniae PCR Not Detected (NotDetected); Parainfluenza Virus 1 PCR Not Detected (NotDetected); Parainfluenza Virus 2 PCR Not Detected (NotDetected); Parainfluenza Virus 3 PCR Not Detected (NotDetected); Parainfluenza Virus 4 PCR Not Detected (NotDetected); Respiratory Syncytial VirusPCR Not Detected (NotDetected); Rhinovirus/Enterovirus PCR Not Detected (NotDetected)
--- NOTE | 2023-04-27 18:44 | History & Physical Report ---
Date of Service April 27, 2023 Assessment & Plan (1) Acute respiratory failure: (2) Severe sepsis: (3) Pneumonia: Plan: Patient is 62-year-old male with PMH squamous cell carcinoma of tongue, malnutrition, PEG tube status, right lung cavitary lesion, former tobacco use, former alcohol use presented to ER with complaint cough and increased SOB x 1 week. Upon arrival to ER Patient noted to be febrile 38.9 C rectal, P: 126, R: 30, BP 118/71, 94% on nonrebreather. WBC: 3.7, H/H: 7.4/22, Plt: 90, BUN: 64, Cr: 1.1 Lactate: 3.7, procalcitonin: 15, troponin: 45 CXR: Interval progression of bilateral airspace opacities suggestive of a pneumonia. Trace right pleural effusion. During ER course patient became more tachycardic, tachypneic and hypotensive In ER was given 2L NSS, cefepime, vancomycin Was placed on bipap Discussion with patient at bedside and states would want intubation/ventilation, medications including pressors if needed but would not want chest compressions ICU contacted and provider recommended intubation and ICU admission. 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 Currently not taking oral secondary to oral mouth pain from radiation. Significant weight loss over past 9 months. PEG tube receiving tube feeds 6 time daily On home Nutren Will need nutrition consult Disposition ICU Conditional code as per discussion with pt, want intubation/ventilation, medications including pressors if needed but would not want chest compressions Follows with Dr Aceves for routine care Pt was seen and care coordinated with Dr Mathew. See addendum I spent a total of 79 minutes reviewing notes, outpatient records, labs, medication, coordinating, documenting and providing care for this patient excluding time spent in the performance of separately billed services. History of Present Illness Chief Complaint: SOB Primary Care Provider: NO PCP Patient is 62-year-old male with PMH squamous cell carcinoma of tongue, malnutrition, PEG tube status, right lung cavitary lesion, former tobacco use, f ormer alcohol use presented to ER with complaint cough and increased SOB x 1 week. 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 Recent hospital admission 03/19/2023-03/25/2023 for pneumonia, sepsis, neutropenic fever initially treated with cefepime, vancomycin and transition to doxycycline and cefepime History obtained from patient, patient's nieces, outpatient and inpatient chart review. Patient with history oral cancer and mouth pain and does not talk secondary to pain. Uses notepad to communicate. Uses tube feeds and very limited oral intake of sips of water. It is reported that patient has had worsening shortness of breath and productive white cough, postnasal drip for over a week. He has not taken temperatures at home but reports didn't have tactile fevers. He was seen outpatient at [facility] shopfitter on 04/22/2023 for follow-up of cavitary lung lesion however had reported the symptoms as well. Per note it was noted patient had wet sounding cough and had a lot of secretions but was able to cough them out and had "decent saturation on room air". Per note it was discussed about having bronchoscopy on 04/23/2023 however this appears to have been delayed and is scheduled for 04/29/2023 and per note patient had wanted to go home. Patient and niece report progressive worsening and patient severely SOB. Patient states today had severe shortness of breath and chest pain. It is reported EMS found patient to have pulse ox of 74% on room air up to94% on 15 L via nonrebreather. Allergies Allergy/AdvReac Type Severity Reaction Status Date / Time No Known Allergies Allergy Verified 04/27/23 18:46 Home Medications Medication Instructions Recorded Confirmed Type ondansetron HCl 8 mg tablet 8 mg PO Q8H PRN Nausea And Vomiting 01/14/23 04/27/23 History prochlorperazine maleate 10 mg 10 mg PO Q6H PRN Nausea And 01/14/23 04/27/23 History tablet (Compazine) Vomiting Magic Mouthwash 300 mL mouthwash 10 ml mucous membrane ACHS PRN 01/27/23 04/27/23 Rx mouth pain #300 mL morphine concentrate 100 mg/5 mL 5 mg PO Q4H PRN Pain 03/19/23 04/27/23 History (20 mg/mL) oral solution albuterol sulfate 90 mcg/actuation 2 inh inhalation Q6H PRN Shortness 04/01/23 04/27/23 History aerosol inhaler Of Breath/COUGH/WHEEZING Nutramigen Feedings 1 dose feeding tube DIRECTED 04/27/23 04/27/23 History fentanyl 12 mcg/hr transdermal 12 mcg transdermal Q72H 04/27/23 04/27/23 History patch tiotropium bromide 2.5 2 puff inhalation QAM 04/27/23 04/27/23 History mcg/actuation mist for inhalation (Spiriva Respimat) Past Med/Surg History Medical History Cavitary lesion of lung Severe malnutrition Cancer of oral cavity Venous insufficiency Cavitary lung disease Centrilobular emphysema Tobacco use disorder Surgical History S/P percutaneous endoscopic gastrostomy (PEG) tube placement S/P bronchoscopy Family History Mother Myocardial infarction Father Myocardial infarction Sister Myocardial infarction Social History Smoking Status: Former smoker Tobacco Type: Cigarettes Age Started Using Tobacco: 15; Second Hand Exposure: No; Do You Dip or Chew Tobacco: No; Hx Alcohol Use: No Hx Substance Use: No Preferred Language: Sammarinese Communication Ability: Impaired Communication Ability Comment: does have difficulty speaking due to oral pain Visual Impairment: No Limitations Hearing Ability: Normal Beliefs That Will Affect Care: None Current Living Situation: Alone Current Living Situation Comment: Alone in house current occupational status: employed 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 Feels Safe at Home: Yes Diet: Pureed during the past year weight has: decreased > 10 lbs Assistive Devices: None Review of Systems Review of Systems: Other (Further ROS unobtainable secondary to bipap) Physical Exam Physical Exam: PE per Dr Mathew Results & Data Results & Data Vital Signs (Past 12 Hours) Vital Signs Temp Pulse Pulse Resp BP Pulse Ox O2 Del Method 04/27/23 18:09 152 H 04/27/23 17:20 128 H 42 H 97 High Flow Nasal Cannula, Non-rebreather 04/27/23 17:05 128 H 04/27/23 17:03 38.9 C H 126 H 30 H 118/71 94 Non-rebreather O2 Flow Rate FiO2 04/27/23 18:09 04/27/23 17:20 40 80 04/27/23 17:05 04/27/23 17:03 15 Laboratory Results Short CBC 04/27/23 Range/Units 17:05 WBC 3.74 L (4.8-10.8) K/ul Hgb 7.4 L (14.0-18.0) g/dl Hct 22.6 L (42.0-52.0) % Plt Count 90 L (130-400) K/uL BMP 04/27/23 17:05 Sodium 141 Potassium 4.0 Chloride 100 Carbon Dioxide 30 BUN 64 H Creatinine 1.10 Glucose 128 H Calcium 8.3 L Liver Function 04/27/23 Range/Units 17:05 Total Bilirubin 1.2 H (0.2-1.0) mg/dl Direct Bilirubin 0.7 H (0-0.2) mg/dl AST 65 H (13-39) U/L ALT 50 (7-52) U/L Alkaline Phosphatase 84 (34-104) U/L Albumin 2.3 L (3.4-5.0) gm/dl Diagnostic Findings Chest X-Ray 04/27/23 17:20 XR chest 1V portable HISTORY: Sepsis COMPARISON: Chest 09/22/2023. FINDINGS: No pneumothorax. Emphysema again noted. Trace right pleural effusion. Patchy bibasilar airspace opacities and the irregular right upper lobe airspace opacity have progressed. A gastrostomy tube is noted within the left upper quadrant. No evidence for pulmonary edema. No acute fractures. IMPRESSION: 1. Interval progression of bilateral airspace opacities suggestive of a pneumonia. 2. Continued follow-up recommended to ensure resolution of the right upper lobe irregular opacity. 3. Trace right pleural effusion. ACT 112: Negative or not required by law. Electronically signed by: Alex Pena M.D. 04/27/2023 6:15 PM Supervising Physician Co-Signing Physician Notes Pt seen and examined with ZAHRA Teixeira, at bedside. Per family pt has been doing poorly since recent visit to pulmonology. Since that visit he has worsening sob and junky sounding cough. At the time of our visit he was on BiPAP and feeling slightly improved but still with notable increased respiratory effort and ongoing shortness of breath and lig htheadedness. He was saturating adequately but with a RR in the 40s. Despite IVF HR was in the 170s with a MAP in the 60s - 70s. Per our conversation pt would like to be intubated should it be indicated. He also would like defibrillation and ACLS medications. He does NOT want CPR. # severe sepsis, respiratory failure, multifocal pna: SIRS criteria; T > 38 C, HR > 90, RR > 20. With acute hypoxic respiratory failure, lactic acid > 2 and elevated LFTs making this severe sepsis. continue broad spectrum abx continue IVF resuscitation (completed sepsis dose IVF bolus with inadequate response), likely needs pressors as well pt remains hemodynamically unstable despite IVF and BiPAP, per discussion with pt and family he will be intubated and admitted to ICU discussed with ICU provider who agreed and recommended intubation and admission to ICU, reviewed with ED doc # REVA: while Cr is technically wnl, it is elevated for someone with this patient's muscle mass and is more than 2x his baseline suggesting an REVA continue to monitor renal function, resuscitate with fluids and pressors, tx pneumonia as above, avoid nephrotoxins, hypotension, and relative hypotension # afib RVR: new dx, continue to treat underlying etiology (severe sepsis d/t multifocal pna) BP is too soft for CCB or BB at this point, could consider digoxin if needed physical exam Gen: cachectic, emaciated, chronically ill/frail appearing Head: deep temporal wasting and sunken cheeks Neck: trachea midline CV: rapid HR, irreg rhythm Pulm: coarse sounds Ext: no edema Neuro: no focal deficits MSK: diffuse muscle wasting, cachectic Rest per attested note above
[2023-04-27] MEDS: VANCOMYCIN HCL 1,250 MG in SODIUM CHLORIDE 0.9% 500 ML IV ONE (19:08)
[2023-04-27] MEDS: NOREPINEPHRINE/D5W 4 MG/250 ML PLCT IV SCH (19:42)
--- NOTE | 2023-04-27 20:18 | Procedure Note ---
Procedure Note Date of Service April 27, 2023 Note ARTERIAL LINE PROCEDURE NOTE: Procedure: Arterial Line Placement Proceduralist: Kt COLLINS ([facility] Attending: Dr. De Leon Indication: Monitoring on Pressors Anesthesia: [x]None- Propofol and Fentanyl infusions Emergent consent was implied as patient was requiring rapidly escalating doses of vasoactive medications A time-out was completed verifying correct patient, procedure, site, positioning, and implant(s) or special equipment if applicable. Allens test was performed to ensure adequate perfusion. Patients LEFT wrist was prepped and draped in the usual sterile fashion. Ultrasound guidance was used to aid needle placement. A 20g Arrow arterial line was introduced into the LEFT RADIAL artery. Catheter was threaded, and the needle was removed with appropriate blood return. Good waveform was observed. The patient tolerated the procedure well. The line was sutured in place and covered with sterile dressing Blood Loss: Minimal Complications: None Artery Identified: YES Complications: NONE immediately noted Patient tolerated procedure: WELL Coding CPT Codes Tubes, Drains, and Vasc Access - Tubes, Drains, and Vasc Access: [id number] Arterial Cath/Cannulation Sampling/Monitoring/Transfusion ([id number]) [facility] [place] Procedure Codes (Charges) Tubes, Drains, and Vasc Access Procedure 1: Tubes, Drains, and Vasc Access: [id number] Arterial Cath/Cannulation Sampling/Monitoring/Transfusion
--- NOTE | 2023-04-27 20:18 | Critical Care Consultation ---
Date of Consultation April 27, 2023 Assessment & Plan (1) Acute massive pulmonary embolism: (2) Severe sepsis: (3) Acute respiratory failure: (4) Cavitary lesion of lung: (5) Severe malnutrition: (6) Pancytopenia due to antineoplastic chemotherapy: (7) Hyponatremia: Plan Reason Critically Ill: 62 YOM admitted to ICU for shock unspecified, afib with RVR, acute hypoxic respiratory failure. CTA interpreted as saddle PE at bifurcation of PA with bilateral PE's. Requiring vasopressor support for multifactorial shock. Neuro - Sedation for mechanical ventilation, chronic pain CAM ICU: [facility] - Patient requiring sedation for mechanical ventilation- did not tolerate propofol - will use fentanyl as single agent - awake and comfortable currently with JENNIFER -1 and following commands/appropriate Cardiac - Shock multifactorial, elevated troponin, massive PE with shock, new onset afib with RVR - Patient arrives with shock at this time is with likely both obstructive and distributive shock - CTA chest completed on arrival to ICU 2019- official read at 2250 notified of saddle PE at pulmonary at bifurcation and bilateral pulmonary embolism - Patient meets criteria for massive PE with, hypotension requiring va sopressor support, HR >130, elevated HsCTNI to 40, lactate >2,0 - I called and discussed these findings with his niece Cora (who goes to all his Appointments with him as well as OK for her to discuss care and make decisions as she is local given by Sister Anupama KARIMI) - We reviewed the above criteria, as well as treatment options with quarter dose TPA or quarter dose TPA extended infusion over 12 hours and then followed by heparin infusion- We reviewed the risks fo bleeding into head, GI, bleed or other bleed anywhere in body. We reviewed his ICH score which is 3 (3.4%) as well as other risks with already low HGB level and Platelet count of 90- she felt that the risks outweigh the current benefit as he is holding stable at this time and improving hemodynamic and respiratory status, as well felt he would not want to undertake these risks as well. I also discussed the above with the patient as he is awake and trying to write and answering questions appropriately yes and no- he also shook his head NO to receiving TPA and YES to not wanting to undertake the risks as stated by his niece. I also discussed the above with my attending Dr. De Leon. - We will treat with heparin infusion and re-eval in morning as could still be candidate at that time for delayed extended infusion of tPA pending further stability - Vasopressor support at this time with LEVOphed and Vasopressin- with his RVR and afib- feel that epinephrine at this time would be counterproductive to HR - as his lactate is downtrending and now with more hemodynamic stability will keep with current vasopressors. -AFIB with RVR- bloused with AMMIO and infusion following- for rate control which has been successful at this time with HR 100-110s - Heparin infusion as above for stroke risk reduction and PE Respiratory - Hypoxic respiratory failure requiring intubation, pneumonia, cavitary lung lesions - Patient tolerated intubation without further hemodynamic support until arrival to ICU - Currently with adequate ABG with normal PH, CO2 and favorable O2 levels - Failure in setting of pneumonia and pulmonary embolism - sputum culture is pending - Legionella and aspergillus sent- pending - Cefepime, Azithromycin, Vancomycin for pneumonia- pending clinical course +/- antifungal GI - Malnutrition with PEG tube in place - hold on feedings at this time with current vasopressor requirements - resume when appropriate RENAL/LYTES - 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 - Likely pre-renal at this time, no evidence of GI bleeding or dark stools - ICU electrolyte protocol - Anderson placed for accurate [place] while on vasopressors ENDO - NO acute needs HEME - Pancytopenia - multifactorial in the setting of sepsis and s/p chemotherapy 2 weeks ago - Transfuse 1-2 u PRBC for anemia with end organ dysfunction follow hemodynamics with volume - Follow platelets with initiation of heparin infusion ID - Septic shock - Pulmonary source favorable as well as possibly urine - Sputum culture pending, urine culture pending, blood cultures pending - Leukopenic, elevated PCT - Continue with Vancomycin, Cefepime, Azithromycin - Legionella and Aspergillus pending - Bronchoscopy consideration when more stable LINES/IV ACCESS - PIV, Central Line Right IJ, Arterial line, ETT, Continue use of these lines DVT PROPHYLAXIS - SCDS, Heparin infusion DISPO: ICU while on vasopressors and requiring mechanical ventilation Family: Lynn Shepherd- present with patient in ER- C ([phone]) cares for patient as well as attends all Dr. Appointments with patient and is Local- did discuss case with sister Anupama Karimi as well as obtain blood consent from Anupama Karimi- as she is listed as primary contact by patient. As patient does not have a POA, Anupama Karimi did give permission to discuss all treatments and decisions with Cora as she is local and they will contact each other for information. Anupama Karimi should be local by morning time. Patient also once awake- did also shake head YES to discuss case with Cora and she can make decisions as well. I have personally spent 70 minutes of critical care time in the direct management of this patient. This is a life/limb threatening event. This includes time spent evaluating patient, direct bedside care, chart review, placing orders, interpretation of diagnostic studies, discussion with consultants, patient, and family members, as well as other required patient management activities. This time is exclusive of all separately billable procedures, and separate from and in addition to any other critical care service time. Thank you for allowing us to participate in the care of this patient. Please refer to my attending physician's documentation for any further recommendations. 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 Patient presents to the EMD today via EMS for complaints of difficulty breathing and productive cough. THe patient was noted to be hypoxic on EMS arrival to 74% and noted to be tachycardic to the 160s on arrival to the EMD and apparent new onset afib. He was accompanied by his nieces. In the EMD the patient remained tachycardic with elevated lactic acid and hypotension requiring vasopressor support, as both HR and BP were unresponsive to fluid. He was initiated on antibiotics. He continued to require BiPAP support and remained with HR in the 160s. He had routine labs performed to include sputum sample, Blood culture, and urine cultures. He had a PCT of 15.60, and Troponin level of 40.0. As he continued to have increased work of breathing and hemodynamic support was increasing he was intubated without difficulty by Dr. Kenney with Ketamine and Succinylcholine. He tolerated this well. He was then admitted to the ICU. CTA of the chest was ordered by myself and patient was transferred to ICU. He will remain on vasopressor support, await CTA findings as well as require arterial and central venous access. Continue with broad spectrum antibiotics, anticoagulation with Heparin for afib and pending CTA of the chest. CODE: Conditional - NO CPR - OK for intubation/mechanical ventilation/electricity/medications Allergies Allergy/AdvReac Type Severity Reaction Status Date / Time No Known Allergies Allergy Verified 04/27/23 18:46 Home Medications Medication Instructions Recorded Confirmed Type ondansetron HCl 8 mg tablet 8 mg PO Q8H PRN Nausea And Vomiting 01/14/23 04/27/23 History prochlorperazine maleate 10 mg 10 mg PO Q6H PRN Nausea And 01/14/23 04/27/23 History tablet (Compazine) Vomiting Magic Mouthwash 300 mL mouthwash 10 ml mucous membrane ACHS PRN 01/27/23 04/27/23 Rx mouth pain #300 mL morphine concentrate 100 mg/5 mL 5 mg PO Q4H PRN Pain 03/19/23 04/27/23 History (20 mg/mL) oral solution albuterol sulfate 90 mcg/actuation 2 inh inhalation Q6H PRN Shortness 04/01/23 04/27/23 History aerosol inhaler Of Breath/COUGH/WHEEZING Nutramigen Feedings 1 dose feeding tube DIRECTED 04/27/23 04/27/23 History fentanyl 12 mcg/hr transdermal 12 mcg transdermal Q72H 04/27/23 04/27/23 History patch tiotropium bromide 2.5 2 puff inhalation QAM 04/27/23 04/27/23 History mcg/actuation mist for inhalation (Spiriva Respimat) Patient History Medical History Cavitary lesion of lung Severe malnutrition Cancer of oral cavity Venous insufficiency Cavitary lung disease Centrilobular emphysema Tobacco use disorder Surgical History S/P percutaneous endoscopic gastrostomy (PEG) tube placement S/P bronchoscopy Family History Mother Myocardial infarction Father Myocardial infarction Sister Myocardial infarction Social History Smoking Status: Former smoker Tobacco Type: Cigarettes Age Started Using Tobacco: 15; Second Hand Exposure: No; Do You Dip or Chew Tobacco: No; Hx Alcohol Use: No Hx Substance Use: No Preferred Language: Luxembourger Communication Ability: Impaired Communication Ability Comment: does have difficulty speaking due to oral pain Visual Impairment: No Limitations Hearing Ability: Normal Beliefs That Will Affect Care: None Current Living Situation: Alone Current Living Situation Comment: Alone in house current occupational status: employed 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 Feels Safe at Home: Yes Diet: Pureed during the past year weight has: decreased > 10 lbs Assistive Devices: None Review of Systems Review of Systems: unable to assess at this time secondary to sedation Physical Exam Physical Exam: PHYSICAL EXAM: General: Sedated Head: Normocephalic, atraumatic ENT: PERRLA, EOMI, no pharyngeal exudate, mucous membranes, dry Neuro: Intubated and sedated, was moving all extremities prior to intubation and is moving extremities through sedation, follows commands, PEERLA Chest: equal rise and fall of the chest, scattered rhonchi throughout, inspiratory and expiratory wheeze, Cardiac: irregular rate and rhythm, telemetry reviewed- afib, skin warm dry, cap refill <3 seconds, peripheral pulses +2 no JVD, no murmur, no edema GI: NABS x 4 quadrants, soft, nontender to palpation, no rebound, guarding or tenderness, PEG tube in place with dried gastric secretions around outside : Anderson to gravity Psych: Normal mood and affect Skin: venous discolorations to bilateral lower extremities, cachectic Results & Data Results & Data Vital Signs (Past 12 Hours) Vital Signs Temp Pulse Pulse Resp BP BP Pulse Ox 04/27/23 19:50 84/68 L 04/27/23 19:50 172 H 42 H 100 04/27/23 19:50 151 H 37 H 90/71 L 100 04/27/23 19:49 147 H 34 H 100 04/27/23 19:49 90/71 L 04/27/23 19:46 168 H 36 H 79/58 L 100 04/27/23 19:45 173 H 35 H 100 04/27/23 19:45 79/58 L 04/27/23 19:43 82/65 L 04/27/23 19:43 163 H 37 H 100 04/27/23 19:40 167 H 29 H 87 L 04/27/23 19:37 169 H 23 97 04/27/23 19:26 154 H 33 H 95 04/27/23 19:26 91/60 L 04/27/23 19:20 159 H 35 H 93 04/27/23 19:20 75/61 L 04/27/23 19:17 169 H 34 H 93 04/27/23 19:17 86/69 L 04/27/23 19:17 167 H 26 H 86/69 L 94 04/27/23 19:10 79/66 L 04/27/23 19:10 164 H 35 H 88 L 04/27/23 19:00 168 H 40 H 98/71 L 84 L 04/27/23 18:50 157 H 31 H 89/71 L 91 04/27/23 18:40 149 H 35 H 91/74 L 95 04/27/23 18:31 152 H 37 H 95/75 L 100 04/27/23 18:20 166 H 29 H 119/71 95 04/27/23 18:10 160 H 40 H 104/84 100 04/27/23 18:09 152 H 04/27/23 18:07 154 H 36 H 99/66 L 99 04/27/23 18:05 151 H 34 H 92/68 L 100 04/27/23 18:01 147 H 37 H 95/58 L 97 04/27/23 18:00 171 H 36 H 87/72 L 93 04/27/23 17:59 159 H 29 H 105/75 97 04/27/23 17:20 128 H 42 H 97 04/27/23 17:15 128 H 48 H 97/66 L 94 04/27/23 17:09 127 H 25 H 100/68 94 04/27/23 17:05 128 H 04/27/23 17:03 38.9 C H 126 H 30 H 118/71 94 04/27/23 16:57 04/27/23 16:57 O2 Del Method O2 Flow Rate FiO2 04/27/23 19:50 04/27/23 19:50 04/27/23 19:50 BiPAP 04/27/23 19:49 04/27/23 19:49 04/27/23 19:46 BiPAP 04/27/23 19:45 04/27/23 19:45 04/27/23 19:43 04/27/23 19:43 04/27/23 19:40 04/27/23 19:37 04/27/23 19:26 04/27/23 19:26 04/27/23 19:20 04/27/23 19:20 04/27/23 19:17 04/27/23 19:17 04/27/23 19:17 BiPAP 40 04/27/23 19:10 04/27/23 19:10 04/27/23 19:00 BiPAP 04/27/23 18:50 BiPAP 04/27/23 18:40 BiPAP 04/27/23 18:31 BiPAP 04/27/23 18:20 High Flow Nasal Cannula 40 80 04/27/23 18:10 High Flow Nasal Cannula 40 80 04/27/23 18:09 04/27/23 18:07 High Flow Nasal Cannula 40 80 04/27/23 18:05 High Flow Nasal Cannula 40 80 04/27/23 18:01 High Flow Nasal Cannula 40 80 04/27/23 18:00 High Flow Nasal Cannula 40 80 04/27/23 17:59 High Flow Nasal Cannula 40 80 04/27/23 17:20 High Flow Nasal Cannula, Non-rebreather 40 80 04/27/23 17:15 High Flow Nasal Cannula 40 80 04/27/23 17:09 Non-rebreather 15 04/27/23 17:05 04/27/23 17:03 Non-rebreather 15 04/27/23 16:57 Non-rebreather 15 04/27/23 16:57 Non-rebreather 15 Laboratory Results Abnormal lab results 04/27/23 04/27/23 04/27/23 Range/Units 17:05 19:26 20:23 WBC 3.74 L (4.8-10.8) K/ul RBC 2.30 L (4.70-6.10) M/uL Hgb 7.4 L (14.0-18.0) g/dl POC Hgb 5.8 L* (14.0-18.0) g/dl Hct 22.6 L (42.0-52.0) % POC Hct 17 L* (42-52) % RDW Std Deviation 70.0 H (36.4-46.3) fL RDW Coeff of Suraj 20.0 H (11.5-14.5) % Plt Count 90 L (130-400) K/uL Lymph # (Auto) 0.09 L (1.20-3.40) K/uL Foster # (Auto) 0.08 L (0.11-0.59) K/uL PT (9.0-12.0) Seconds INR (0.9-1.1) APTT (21-31) Seconds POC pO2 102 H (80-95) mmHg POC HCO3 25 H (19-24) dimitri/L POC ABG O2 Sat 98.0 H (90-95) % BUN 64 H (6-23) mg/dl BUN/Creatinine Ratio 58.2 H (10-20) Glucose 128 H (70-99(Fasting)) mg/dl Lactate 3.7 H* 2.7 H* (0.4-2.0) mmol/L Calcium 8.3 L (8.6-10.3) mg/dl Total Bilirubin 1.2 H (0.2-1.0) mg/dl Direct Bilirubin 0.7 H (0-0.2) mg/dl AST 65 H (13-39) U/L Troponin I High Sens 45.0 H 40.0 H (0-20) pg/ml Albumin 2.3 L (3.4-5.0) gm/dl Procalcitonin 15.60 H (0-0.5) ng/ml Urine Appearance (Clear) Ur Specific Hess[place] (1.000-1.030) Urine Protein (Negative) Urine Urobilinogen (Negative) Urine WBC (Auto) (0-5) /hpf U Hyaline Cast (Auto) (0-5) /lpf U Epithel Cells (Auto) (0-5) /lpf Urine Bacteria (Auto) (Negative) Crossmatch 04/27/23 04/27/23 04/27/23 Range/Units 20:52 21:49 22:23 WBC (4.8-10.8) K/ul RBC (4.70-6.10) M/uL Hgb (14.0-18.0) g/dl POC Hgb (14.0-18.0) g/dl Hct (42.0-52.0) % POC Hct (42-52) % RDW Std Deviation (36.4-46.3) fL RDW Coeff of Suraj (11.5-14.5) % Plt Count (130-400) K/uL Lymph # (Auto) (1.20-3.40) K/uL Foster # (Auto) (0.11-0.59) K/uL PT 14.3 H (9.0-12.0) Seconds INR 1.3 H (0.9-1.1) APTT 35 H (21-31) Seconds POC pO2 (80-95) mmHg POC HCO3 (19-24) dimitri/L POC ABG O2 Sat (90-95) % BUN 67 H (6-23) mg/dl BUN/Creatinine Ratio 59.8 H (10-20) Glucose 155 H (70-99(Fasting)) mg/dl Lactate (0.4-2.0) mmol/L Calcium 7.3 L (8.6-10.3) mg/dl Total Bilirubin (0.2-1.0) mg/dl Direct Bilirubin (0-0.2) mg/dl AST (13-39) U/L Troponin I High Sens (0-20) pg/ml Albumin (3.4-5.0) gm/dl Procalcitonin (0-0.5) ng/ml Urine Appearance Cloudy A (Clear) Ur Specific [place] 1.032 H (1.000-1.030) Urine Protein 1+ H (Negative) Urine Urobilinogen Positive H (Negative) Urine WBC (Auto) 5-10 H (0-5) /hpf U Hyaline Cast (Auto) 5-10 H (0-5) /lpf U Epithel Cells (Auto) >30 H (0-5) /lpf Urine Bacteria (Auto) 1+ H (Negative) Crossmatch See Detail Diagnostic Findings Chest X-Ray 04/27/23 17:20 XR chest 1V portable HISTORY: Sepsis COMPARISON: Chest 09/22/2023. FINDINGS: No pneumothorax. Emphysema again noted. Trace right pleural effusion. Patchy bibasilar airspace opacities and the irregular right upper lobe airspace opacity have progressed. A gastrostomy tube is noted within the left upper quadrant. No evidence for pulmonary edema. No acute fractures. IMPRESSION: 1. Interval progression of bilateral airspace opacities suggestive of a pneumonia. 2. Continued follow-up recommended to ensure resolution of the right upper lobe irregular opacity. 3. Trace right pleural effusion. ACT 112: Negative or not required by law. Electronically signed by: Alex Pena M.D. 04/27/2023 6:15 PM Chest CTA 04/27/23 20:07 CR Exam(s): CTA CHEST IV Amt: OPTIRAY [id number] EXAM: CT Angiography Chest With Intravenous Contrast CLINICAL HISTORY: Reason for exam: PE. TECHNIQUE: Axial computed tomographic angiography images of the chest with intravenous contrast. CTDI is 12.93 mGy and DLP is 482.03 mGy-cm. Automated exposure control was utilized for the study. A dose lowering technique was utilized adhering to the principles of ALARA. MIP reconstructed images were created and reviewed. COMPARISON: No relevant prior studies available. FINDINGS: Pulmonary arteries: There is saddle thrombus identified at the bifurcation of the main pulmonary artery with extension into the lobar branches of the lower lobes and right middle lobe. Aorta: No acute findings. No thoracic aortic aneurysm. Lungs: Extensive multifocal consolidations are seen in bilateral lungs, most prominently involving the lower lobes and right middle lobe. Moderate centrilobular emphysema. 6.2 cm emphysematous bulla seen in the right upper lobe, containing a 1.9 cm dependent nodularity. Pleural space: Unremarkable. No significant effusion. No pneumothorax. Heart: Unremarkable. No cardiomegaly. No significant pericardial effusion. No evidence of RV dysfunction. Bones/joints: No acute fracture. No dislocation. Soft tissues: Unremarkable. Lymph nodes: Unremarkable. No enlarged lymph nodes. IMPRESSION: 1. Bilateral pulmonary embolism 2. Bilateral multifocal pneumonia 3. Cavitary lesion in the right lung apex with dependent nodularity. Aspergilloma cannot be excluded. Communications: Call Doctor Pulmonary Embolism Electronically signed by: Steven Anne MD 04/27/23 22:46 PM Medications Administered Home Medications ondansetron HCl 8 mg tablet 8 mg PO Q8H PRN Nausea And Vomiting 01/14/23 [History Confirmed 04/27/23] prochlorperazine maleate 10 mg tablet (Compazine) 10 mg PO Q6H PRN Nausea And Vomiting 01/14/23 [History Confirmed 04/27/23] Magic Mouthwash 300 mL mouthwash 10 ml mucous membrane ACHS PRN mouth pain #300 mL 01/27/23 [Rx Confirmed 04/27/23] morphine concentrate 100 mg/5 mL (20 mg/mL) oral solution 5 mg PO Q4H PRN Pain 03/19/23 [History Confirmed 04/27/23] albuterol sulfate 90 mcg/actuation aerosol inhaler 2 inh inhalation Q6H PRN Shortness Of Breath/COUGH/WHEEZING 04/01/23 [History Confirmed 04/27/23] Nutramigen Feedings 1 dose feeding tube DIRECTED 04/27/23 [History Confirmed 04/27/23] fentanyl 12 mcg/hr transdermal patch 12 mcg transdermal Q72H 04/27/23 [History Confirmed 04/27/23] tiotropium bromide 2.5 mcg/actuation mist for inhalation (Spiriva Respimat) 2 puff inhalation QAM 04/27/23 [History Confirmed 04/27/23] Active Medications Albuterol (Albuterol Hfa 8 Gm Inhaler) 2 puffs INH Q6H PRN PRN Reason: Shortness Of Breath/COUGH/WHEE Stop: 05/27/23 22:37 Fentanyl Citrate (Fentanyl Citrate Pf 100 Mcg/2 Ml Vial) 50 mcg IV Q2H PRN PRN Reason: Moderate Pain (4,5,6) on NRS Stop: 05/11/23 20:51 Last Admin: 04/27/23 21:55 Dose: 50 mcg Fentanyl Citrate (Fentanyl Bolus From Bag) 50 mcg IV Q60M PRN PRN Reason: Pain or Agitation Stop: 05/11/23 22:07 Heparin Sodium (Porcine) (Heparin Sod (Porcine) 1000 Unit/Ml) 1 units IV NOW ONE Stop: 04/27/23 23:37 Heparin Sodium/Dextrose (Heparin Iv Adult Wt-Based Standard W/ Initial Bolus Protocol) 1 each IV Q15M XI; Protocol Stop: 04/28/23 02:00 Norepinephrine Bitartrate (Levophed/D5w) 4 mg in 250 mls @ 89.46 mls/hr IV .Q2H48M XI; Protocol Stop: 05/27/23 19:44 Last Admin: 04/27/23 23:32 Dose: 0.42 mcg/kg/min, 89.5 mls/hr Amiodarone HCl/Dextrose (Nexterone / D5w) 360 mg in 200 mls @ 16.667 mls/hr IV .Q12H XI Stop: 05/28/23 03:09 Amiodarone HCl/Dextrose (Nexterone / D5w) 360 mg in 200 mls @ 33.333 mls/hr IV ONE ONE Stop: 04/28/23 03:09 Last Admin: 04/27/23 21:09 Dose: 1 mg/min, 33.3 mls/hr Vasopressin 20 units/ Sodium (Chloride) 101 mls @ 12.12 mls/hr IV .Q8H20M IX Stop: 05/27/23 21:29 Last Admin: 04/27/23 21:54 Dose: 0.04 unit/min, 12.1 mls/hr Vancomycin HCl 750 mg/ Sodium (Chloride) 265 mls @ 200 mls/hr IV Q12H XI Stop: 04/30/23 05:59 Sodium Chloride (Nss) 250 mls @ 15 mls/hr IV .[id number] PRN PRN Reason: For Transfusion Duration Stop: 04/28/23 07:47 Cefepime HCl 2,000 mg/ Syringe 20 mls @ 5 mls/min IV Q12H XI Stop: 05/04/23 16:59 Sodium Chloride (Nss) 250 mls @ 15 mls/hr IV .[id number] PRN PRN Reason: For Transfusion Duration Stop: 04/28/23 08:07 Azithromycin 500 mg/ Dextrose 255 mls @ 127.5 mls/hr IV NOW STA Stop: 04/28/23 00:07 Last Admin: 04/27/23 22:26 Dose: 127.5 mls/hr Azithromycin 500 mg/ Dextrose 255 mls @ 125 mls/hr IV Q24H [facility] Stop: 05/05/23 20:59 Fentanyl Citrate (Fentanyl Citrate) 2,500 mcg in 250 mls @ 12.5 mls/hr IV .Q20H XI; Protocol Stop: 05/11/23 22:14 Last Titration: 04/27/23 23:31 Dose: 125 mcg/hr, 12.5 mls/hr Heparin Sodium/Dextrose (Heparin Sodium/Dextrose) 25,000 units in 500 mls @ 0.02 mls/hr IV .Q24H XI; Protocol Stop: 05/27/23 23:44 Miscellaneous (Icu Protocol For Hyperglycemia) 1 each N/A ACHS [facility] Stop: 04/29/23 20:59 Last Admin: 04/27/23 22:28 Dose: 1 each Miscellaneous Information (Vancomycin Consult Active) 1 each N/A UD PRN PRN Reason: Consult Stop: 05/27/23 18:08 Multi-Ingredient Mouthwash/Gargle (First - Mouthwash Blm 119 Ml) 10 ml PO ACHS PRN PRN Reason: mouth pain Stop: 05/27/23 22:48 Propofol (Propofol Bolus From Bag) 20 mg IV Q5M PRN PRN Reason: Sedation Stop: 04/30/23 20:51 ECG Additional Comments: Sinus tachycardia with Premature atrial complexes Otherwise normal ECG When compared with ECG of 27-APR-2023 17:12, (unconfirmed) No significant change was found Coding Level of Care Code 14862 CRITICAL CARE 1ST 30-74M Diagnoses Acute massive pulmonary embolism I26.99 Severe sepsis A41.9; R65.20 Acute respiratory failure J96.00 Cavitary lesion of lung J98.4 Severe malnutrition E43 Pancytopenia due to antineoplastic chemotherapy D61.810; T45.1X5A Hyponatremia E87.1
--- NOTE | 2023-04-27 20:18 | Procedure Note ---
Procedure Note Date of Service April 27, 2023 Note INTERNAL JUGULAR CENTRAL LINE PROCEDURE NOTE: Procedure: Internal Jugular Central Line Placement Proceduralist: Kt COLLINS ([facility] Attending: Dr. De Leon Indication: Central Drug Administration, Poor Venous Access, Multiple Lab Draws Necessary, etc. Anesthesia: [x]None Emergent Consent was implied as patient is requiring rapidly escelating doses of vasoactive medications and is full support for ACLS other than CPR. A time-out was completed verifying correct patient, procedure, site, positioning, and implants(s) or special equipment if applicable. Patients RIGHT Neck was cleansed and draped in the typical sterile fashion using ChloraPrep. The Internal Jugular Vein and Carotid Artery were identified using ultrasound. Ultrasound was used to rn x ray the vessel for appropriate target, vein was easily compressible and good target. The Internal Jugular vein was cannulated under direct ultrasound guidance using an introducer needle on a syringe. Good venous blood return was maintained prior to removal of syringe from introducer needle. Using Seldinger Technique, a guide wire was advanced through the introducer needle without resistance. The introducer needle was removed and ultrasound images were obtained of the guide wire within the Internal Jugular Vein and saved to the patients medical record. A small incision was made in penetrating fashion at the guide wire insertion site utilizing an 11 blade scalpel. The dilator was advanced to the vessel without resistance. The dilator was exchanged for the triple lumen catheter which was advanced into the vessel without resistance. The guide wire was removed intact from the catheter without issue. Claves were placed on each catheter tip with confirmation of good blood flow from each lumen. Each port was easily flushed with sterile saline. The catheter was placed at 17 cm and sutured in place. BioPatch was applied to the catheter and a sterile Tegaderm dressing was applied over the catheter with careful attention to sterility. Patient tolerated procedure well. No immediate complications were met. Post procedure x-ray was completed, placement was appropriate and no pneumothorax was noted. Images obtained are NOT saved for permanent record as this was emergent Artery AND Vein visualized: YES Compressible Vein: YES Guidewire or Short Catheter seen in vein prior to dilation: YES Coding CPT Codes Tubes, Drains, and Vasc Access - Tubes, Drains, and Vasc Access: [id number] Insertion Of Non-tunneled Catheter Age 4 Yrs> ([id number]) [facility] [place] Procedure Codes (Charges) Tubes, Drains, and Vasc Access Procedure 1: Tubes, Drains, and Vasc Access: [id number] Insertion Of Non-tunneled Catheter Age 4 Yrs>
[2023-04-27] MEDS: OPTIRAY 320 125ml IV ONE (20:20)
[2023-04-27] MEDS ORDERED: STAT IV Infusion **Titration per Protocol STA ×4 (20:52→22:08)
[2023-04-27] MEDS ORDERED: AMIODARONE IV BOLUS & DRIP IV STA (20:52)
[2023-04-27] MEDS ORDERED: PROPOFOL BOLUS FROM BAG IV PRN (20:52)
[2023-04-27] MEDS ORDERED: 0.2 MICRON FILTER SET 1 EACH IV ONE (21:00)
[2023-04-27] MEDS: AMIODARONE 360MG / 200ML D5W IV ONE (21:09)
[2023-04-27] MEDS: AMIODARONE / D5W 360 MG/200 ML BAG IV ONE (21:09)
[2023-04-27] MEDS: AMIODARONE / D5W 150 MG/100 ML BAG IV ONE (21:09)
[2023-04-27] MEDS: PROPOFOL IV EMULSION 10 MG/ML 100 ML VIAL IV ONE (21:10)
[2023-04-27] MEDS: AMIODARONE 150MG / 100ML D5W IV ONE (21:10)
[2023-04-27] MEDS: fentaNYL citrate PF 100 MCG/2 ML VIAL IV PRN (21:10)
[2023-04-27 21:35] LABS: iSTAT Art Bld Gas pCO2 Correct 40 mmHg (35-46); iSTAT Art Bld Gas pH Corrected 7.405 (7.35-7.45); iSTAT Arterial Blood Gas HCO3 25 meg/L (19-24); iSTAT Arterial Blood Gas pCO2 40 mmHg (35-46); iSTAT Arterial Blood Gas pH 7.41 (7.35-7.45); iSTAT Arterial Blood Gas pO2 102 mmHg (80-95); iSTAT Arterial Blood Gas pO2 C 102; iSTAT Carbon Dioxide 27 mmol/L (24-31); iSTAT FiO2 70 %; iSTAT Hematocrit 17 % (42-52); iSTAT Hemoglobin 5.8 g/dl (14.0-18.0); iSTAT Potassium 3.8 mmol/L (3.3-5.0); iSTAT Site Art Line; iSTAT Sodium 140 mmol/L (135-144)
[2023-04-27] MEDS ORDERED: SODIUM CHLORIDE 0.9% 250 ML IV PRN ×2 (21:47→22:06)
--- NOTE | 2023-04-27 21:49 | Pharmacy Report ---
Pharmacy PK ABX Note - Date of Service April 27, 2023 - Assessment and Plan Assessment 62 year old M who presented with cough and increased SOB for one week. Ordered vancomycin and cefepime for treatment of possible pneumonia. * PMH significant for oral cancer, malnutrition with PEG tube, right lung cavitary lesion, recent hospital admission. * Pertinent microbiologic data includes: negative respiratory Biofire. BC, sputum culture and MRSA Nasal Swab PENDING Plan Vancomycin * Loading dose: 1250 mg IV x 1 * Maintenance dose: 750 mg IV every 12 hours * Regimen is predicted to achieve target AUC/JANNA of 400-600 mg/L.hr * predicted AUC at steady state: 579 * predicted trough at steady state: 17.3 mcg/mL * Level to be ordered if therapy is extended - current order for 48 hr duration only. Cefepime 2000 mg IV q12h based on CrCl 55 Pharmacy will continue to follow and will adjust dose/frequency as necessary. Thank you. Pharmacy has transitioned to AUC monitoring for vancomycin. AUC/JANNA is the preferred PK/PD target and is associated with decreased risk of nephrotoxicity compared to traditional trough targets.
[2023-04-27] MEDS: VASOPRESSIN 20 UNITS in 0.9 % SODIUM CHLORIDE 100 ML IV SCH (21:54)
[2023-04-27] MEDS: propofoL 1,000 MG/100 ML VIAL IV SCH (21:56)
[2023-04-27] MEDS: STAT IV Infusion **Titration per Protocol STA (21:57)
[2023-04-27] MEDS: fentaNYL citrate PF 100 MCG/2 ML VIAL ONE (21:57)
[2023-04-27] MEDS: RAPID SEQUENCE INDUCTION BAG ONE (21:57)
[2023-04-27] MEDS ORDERED: CEFEPIME 2,000 MG in SYRINGE 0 ML IV SCH (22:15)
[2023-04-27 22:22] LABS: BUN Creatinine Ratio 59.8 (10-20); Calcium 7.3 mg/dl (8.6-10.3); Creatinine Clr Calc Pharmacy 54.2 ml/min; Est GFR (African American) 80.6 ml/min; Est GFR (Non-African American) 69.5 ml/min; Potassium 3.8 mmol/L (3.5-5.1)
[2023-04-27] MEDS: fentaNYL citrate 2,500 MCG/250 ML BAG IV SCH (22:26)
[2023-04-27] MEDS: fentaNYL citrate 2,500 MCG/250 ML BAG IV ONE (22:26)
[2023-04-27] MEDS: AZITHROMYCIN 500 MG in DEXTROSE 5% 250 ML IV STA (22:26)
[2023-04-27] MEDS: ICU Protocol for HYPERglycemia SCH (22:28)
[2023-04-27] MEDS: LACTATED RINGER'S 1,000 ML IV ONE (22:28)
[2023-04-27] MEDS ORDERED: ALBUTEROL HFA 8 GM INHALER INH PRN (22:38)
--- NOTE | 2023-04-27 22:47 | CT Scan Report ---
Exam(s): CTA CHEST IV Amt: OPTIRAY 320 119ML EXAM: CT Angiography Chest With Intravenous Contrast CLINICAL HISTORY: Reason for exam: PE. TECHNIQUE: Axial computed tomographic angiography images of the chest with intravenous contrast. CTDI is 12.93 mGy and DLP is 482.03 mGy-cm. Automated exposure control was utilized for the study. A dose lowering technique was utilized adhering to the principles of ALARA. MIP reconstructed images were created and reviewed. COMPARISON: No relevant prior studies available. FINDINGS: Pulmonary arteries: There is saddle thrombus identified at the bifurcation of the main pulmonary artery with extension into the lobar branches of the lower lobes and right middle lobe. Aorta: No acute findings. No thoracic aortic aneurysm. Lungs: Extensive multifocal consolidations are seen in bilateral lungs, most prominently involving the lower lobes and right middle lobe. Moderate centrilobular emphysema. 6.2 cm emphysematous bulla seen in the right upper lobe, containing a 1.9 cm dependent nodularity. Pleural space: Unremarkable. No significant effusion. No pneumothorax. Heart: Unremarkable. No cardiomegaly. No significant pericardial effusion. No evidence of RV dysfunction. Bones/joints: No acute fracture. No dislocation. Soft tissues: Unremarkable. Lymph nodes: Unremarkable. No enlarged lymph nodes. IMPRESSION: 1. Bilateral pulmonary embolism 2. Bilateral multifocal pneumonia 3. Cavitary lesion in the right lung apex with dependent nodularity. Aspergilloma cannot be excluded. Communications: Call Doctor Pulmonary Embolism Electronically signed by: Steven Anne MD 04/27/23 22:46 PM
[2023-04-27] MEDS ORDERED: FIRST - Mouthwash BLM 119 ML PO PRN (22:49)
[2023-04-27 22:56] LABS: Appearance Urine Cloudy (Clear); Bilirubin Urine Negative (Negative); Blood Urine Negative (Negative); Color Urine Dark Yellow; Epithelial Cell Urine Auto >30 /lpf (0-5); Glucose Urine UA Negative (Negative); Ketones Urine Negative (Negative); Leukocyte Esterase Urine Negative (Negative); Nitrite Urine Negative (Negative); Protein Urine 1+ (Negative); RBC Urine Automated 0-4 /hpf (0-4); Specific Gravity Urine 1.032 (1.000-1.030); Urobilinogen Urine Positive (Negative)
[2023-04-27 23:15] LABS: Bacteria Urine Automated 1+ (Negative)
[2023-04-27 23:20] LABS: INR 1.3 (0.9-1.1); Partial Thromboplastin Ratio 1.2; Partial Thromboplastin Time 35 Seconds (21-31); Prothrombin Time 14.3 Seconds (9.0-12.0)
[2023-04-28] MEDS: HEPARIN SODIUM/DEXTROSE 25,000 UNITS/500 ML BAG IV SCH (00:38)
[2023-04-28] MEDS: HEPARIN SOD (PORCINE) 1000 UNIT/ML IV ONE ×2 (00:39→20:40)
[2023-04-28] MEDS: Heparin IV Adult Wt-Based Standard w/ INITIAL Bolus Protocol IV SCH (01:14)
[2023-04-28] MEDS: AMIODARONE / D5W 360 MG/200 ML BAG IV SCH (02:04)
[2023-04-28 04:48] LABS: Albumin Globulin Ratio 0.6 (0.9-2); BUN Creatinine Ratio 61.6 (10-20); Bilirubin,Total 1.7 mg/dl (0.2-1.0); Calcium 7.6 mg/dl (8.6-10.3); Creatinine Clr Calc Pharmacy 54.8 ml/min; Est GFR (African American) 93.6 ml/min; Est GFR (Non-African American) 80.7 ml/min; Globulin 3.6 gm/dl (2.5-4.0); Magnesium 2.1 mg/dl (1.7-2.4); Phosphorus 4.1 mg/dl (2.5-4.9); Potassium 3.9 mmol/L (3.5-5.1); Total Protein 5.6 gm/dl (6.0-8.3)
[2023-04-28 05:16] LABS: Anisocytosis Present; Basophils # (auto) 0.04 K/uL (0.00-0.20); Basophils % (auto) 1.3 %; Hematocrit (blood only) 24.8 % (42.0-52.0); Hemoglobin 8.1 g/dl (14.0-18.0); Immature Granulocytes # (auto) 0.01 K/uL (0.01-0.20); Immature Granulocytes % (auto) 0.3 %; Lymphocytes # (auto) 0.15 K/uL (1.20-3.40); Lymphocytes % (auto) 4.8 %; Mean Corpuscular Hemoglobin 30.9 pg (25.0-34.0); Mean Corpuscular Hgb Conc 32.7 g/dL (32.0-36.0); Mean Corpuscular Volume 94.7 fL (80.0-100.0); Mean Platelet Volume 11.1 fL (9.4-12.4); Monocytes # (auto) 0.08 K/uL (0.11-0.59); Monocytes % (auto) 2.6 %; Neutrophils # (auto) 2.82 K/uL (1.40-6.50); Nucleated RBC # (auto) 0.04 K/uL (0.00-0.12); Nucleated RBC % (auto) 1.3 %; Platelet Count 65 K/uL (130-400); RDW Coefficient of Variation 20.4 % (11.5-14.5); RDW Standard Deviation 67.8 fL (36.4-46.3); Red Blood Count 2.62 M/uL (4.70-6.10); Toxic Granulation 2+; Toxic Vacuolation 1+
[2023-04-28] MEDS: VANCOMYCIN HCL 750 MG in SODIUM CHLORIDE 0.9% 250 ML IV SCH (05:27)
[2023-04-28] MEDS: CEFEPIME 2,000 MG in SYRINGE 0 ML IV SCH (05:27)
[2023-04-28 07:27] LABS: ANTI-Xa, UFH(UnfractionatedHep < 0.10 IU/ml (0.3-0.7)
--- NOTE | 2023-04-28 07:35 | XRay Report ---
SINGLE VIEW CHEST CLINICAL HISTORY: Respiratory failure. Intubation. FINDINGS: 2 AP, portable, semierect chest radiographs are compared to chest x-ray and chest CT perfor med earlier the same day 04/27/2023. A right internal jugular central venous catheters in place. The t ip projects over the SVC. Endotracheal tube has been placed. The tip projects approximately 4.5 cm ab ove the quentin. The cardiomediastinal silhouette is top normal for projection and noting atherosclero tic calcification of the thoracic aorta. Advanced emphysema and chronic interstitial thickening is si milar to previous. Multifocal airspace consolidation is again seen throughout both lungs, greatest at the lung bases. Cavitation and fibrosis is noted at the right apex. There is no large pleural effusi on or pneumothorax. The skeletal structures are osteopenic. The bony thorax is grossly intact. IMPRESSION: 1. Endotracheal tube and central venous catheter placement as above. 2. Advanced emphysema. 3. Multifocal airspace consolidation is again noted an typical for pneumonia. Clinical correlation wi ll be required and radiographic follow-up to resolution is recommended. ACT 112: Negative or not required by law. Electronically signed by: Red Camara M.D. 04/28/2023 7:33 AM
--- NOTE | 2023-04-28 08:48 | Electrocardiogram Report ---
Test Reason : Blood Pressure : / mmHG Vent. Rate : 130 BPM Atrial Rate : 130 BPM P-R Int : 124 ms QRS Dur : 078 ms QT Int : 280 ms P-R-T Axes : 082 083 074 degrees QTc Int : 412 ms Sinus tachycardia with Premature atrial complexes Otherwise normal ECG When compared with ECG of 19-MAR-2023 10:06, Premature atrial complexes are now Present Confirmed by Alfred Pena ([id number]) on 04/28/2023 8:48:08 AM Referred By: REFERRED SELF Confirmed By:Tom Pena
[2023-04-28] MEDS: MIDAZOLAM HCL 1 MG/ML 2ML VIAL IV STA (09:02)
--- NOTE | 2023-04-28 09:03 | Electrocardiogram Report ---
Test Reason : Blood Pressure : / mmHG Vent. Rate : 108 BPM Atrial Rate : 138 BPM P-R Int : 000 ms QRS Dur : 090 ms QT Int : 342 ms P-R-T Axes : 000 083 074 degrees QTc Int : 458 ms Atrial fibrillation with rapid ventricular response Abnormal ECG When compared with ECG of 27-APR-2023 18:05, (unconfirmed) Non-specific change in ST segment in Lateral leads Confirmed by Alfred Pena ([id number]) on 04/28/2023 9:03:02 AM Referred By: REFERRED SELF Confirmed By:Tom Pena
--- NOTE | 2023-04-28 09:08 | Critical Care Progress Note ---
Date of Service April 28, 2023 Assessment & Plan (1) Acute massive pulmonary embolism: (2) Severe sepsis: (3) Acute respiratory failure: (4) Cavitary lesion of lung: (5) Severe malnutrition: (6) Pancytopenia due to antineoplastic chemotherapy: (7) Hyponatremia: Plan Reason Critically Ill: 62 YOM admitted to ICU for shock unspecified, afib with RVR, acute hypoxic respiratory failure. CTA interpreted as saddle PE at bifurcation of PA with bilateral PE's. Requiring vasopressor support for multifactorial shock. Neuro - Sedation for mechanical ventilation, chronic pain CAM ICU: PAOLA - Patient requiring sedation for mechanical ventilation- did not tolerate propofol - will use fentanyl as single agent - awake and comfortable currently with JENNIFER -1 and following commands/appropriate Cardiac - Shock multifactorial, elevated troponin, massive PE with shock, new onset afib with RVR: Stabilized, high vasoactive requirement but not increasing - Patient arrives with shock at this time is with likely both obstructive and distributive shock - saddle PE at pulmonary at bifurcation and bilateral pulmonary embolism -Patient and family opted for anticoagulant management versus thrombolysis -AFIB with RVR- bloused with AMMIO and infusion following- for rate control which has been successful at this time with HR 100-110s -Would advocate for lifelong anticoagulation therapy unless bleeding risks increase from active hemorrhage or other risk factors Respiratory - Hypoxic respiratory failure requiring intubation, pneumonia, cavitary lung lesions -Discussed with pulmonary, will [facility] for further evaluation of infiltrative changes from prior CT scan in December -Continue cefepime, Azithromycin, Vancomycin for pneumonia-day 1 of 14: Extended course given significant structural change of lung -Extensive discussion with family at bedside. See further details below however considering terminal extubation if and when patient is able to liberate from the ventilator GI -severe protein calorie malnutrition with PEG tube in place -Holding supplementation as patient has high vasoactive require RENAL/LYTES - Elevated Bun with stable OIL PAINTER - Likely pre-renal at this time, no evidence of GI bleeding or dark stools - ICU electrolyte protocol - Anderson placed for accurate BELGICA while on vasopressors ENDO - NO acute needs -Cortisol adequate HEME - Pancytopenia - multifactorial in the setting of sepsis and s/p chemotherapy 2 weeks ago -Received PRBC for anemia with end organ dysfunction: Improved - Follow platelets with initiation of heparin infusion ID - Septic shock - Pseudomonas bacteremia -No resistance gene identified on bio fire -No clear indication for double coverage given BioFire findings, does carry risk factors of significant structural lung disease with possible mauro mitten sepsis in the setting of submassive PE -Michelle quinolone susceptibility less than 90% based off the local antibiogram -Gentamicin only antibiotic we can monitor in house, local susceptibility less than 90% as well -If requires double coverage would advocate for tobramycin or amikacin: Awaiting formal sensitivity LINES/IV ACCESS - PIV, Central Line Right IJ, Arterial line, ETT, Continue use of these lines DVT PROPHYLAXIS - SCDS, Heparin infusion DISPO: ICU while on vasopressors and requiring mechanical ventilation Family: Niece: Cora- present with patient in ER- C ([phone]) cares for patient as well as attends all Dr. Appointments with patient and is Local- did discuss case with sister Anupama Jackson as well as obtain blood consent from Anupama Jackson- as she is listed as primary contact by patient. As patient does not have a POA, Anupama Jackson did give permission to discuss all treatments and decisions with Cora as she is local and they will contact each other for information. Extensive discussion with Cora and Keila regarding current status and prognosis. Both are in agreement that patient's clinical condition continues to deteriorate and needs of care as well as patient discomfort have increased over the past several weeks. We discussed consulting palliative care and hospice which can help mitigate some of the patient's symptomatology, patient is clearly declining in functional status, family reports he is unable to walk independently but a few steps is frequently exertionally dyspneic and his attitude and outlook has definitively changed, they mention specifically his worsening cachexia. I have personally spent 60 minutes of critical care time in the direct management of this patient. This is a life/limb threatening event. This includes time spent evaluating patient, direct bedside care, chart review, placing orders, interpretation of diagnostic studies, discussion with consultants, patient, and family members, as well as other required patient management activities. This time is exclusive of all separately billable procedures, and separate from and in addition to any other critical care service time. Admission and Anticipated Discharge Date Admission Date: April 27, 2023 Subjective Overnight patient's vasoactive medication requirement has decreased. And rec eiving signout from overnight staff family reports the patient can no longer speak, he typically writes his messages and by enlarge part he has involved his niece Cora to assist with medical decision making. Patient was arousable able to follow complex commands with breathing tube present, patient nodded and affirmation that he would want to proceed with bronchoscopy to further evaluate changes in lung imaging when compared to prior in December. Patient denies pain. I contacted Cora who also agreed with proceeding with bronchoscopy. Physical Exam Physical Exam: General: Arousable to voice, cachectic and frail in appearance Skin: Warm, dry, Head: Atraumatic Ears, nose, mouth and throat: airway obscured by endotracheal tube Cardiovascular: Normal peripheral perfusion Respiratory: Ventilator settings reviewed Gastrointestinal: Non distended Musculoskeletal: No deformity Results & Data Results & Data Vital Signs (Past 12 Hours) Vital Signs Temp Pulse Resp BP Pulse Ox O2 Del Method O2 Del Method 04/28/23 07:10 114 H 25 H 93 04/28/23 06:07 36.5 C 98 H 22 94 04/28/23 06:07 139/93 04/28/23 06:00 36.5 C 105 H 22 94 04/28/23 05:52 131/94 04/28/23 05:52 36.6 C 107 H 22 94 04/28/23 05:37 137/93 04/28/23 05:37 36.6 C 113 H 22 94 04/28/23 05:30 36.6 C 110 H 22 94 04/28/23 05:22 36.6 C 91 H 22 93 04/28/23 05:22 120/82 04/28/23 05:07 36.6 C 99 H 22 93 04/28/23 05:07 128/80 04/28/23 05:00 36.6 C 96 H 22 93 04/28/23 04:52 36.6 C 93 H 22 93 04/28/23 04:52 118/93 04/28/23 04:37 36.5 C 101 H 22 94 04/28/23 04:37 125/91 04/28/23 04:30 36.5 C 93 H 22 94 04/28/23 04:22 36.5 C 106 H 22 94 04/28/23 04:22 124/97 04/28/23 04:07 36.5 C 106 H 22 94 04/28/23 04:07 129/89 04/28/23 04:00 36.5 C 101 H 22 94 04/28/23 04:00 04/28/23 03:52 36.5 C 111 H 22 95 04/28/23 03:52 126/98 04/28/23 03:40 105 H 22 94 04/28/23 03:37 36.5 C 105 H 21 04/28/23 03:37 148/113 H 04/28/23 03:30 36.4 C L 107 H 22 94 04/28/23 03:22 36.4 C L 117 H 22 94 04/28/23 03:22 122/82 04/28/23 03:07 134/91 04/28/23 03:07 36.4 C L 99 H 22 95 04/28/23 03:00 36.4 C L 104 H 23 94 04/28/23 02:52 36.4 C L 103 H 22 94 04/28/23 02:52 110/84 04/28/23 02:37 105/76 04/28/23 02:37 36.4 C L 90 22 94 04/28/23 02:30 36.3 C L 93 H 22 93 04/28/23 02:22 36.3 C L 105 H 22 93 04/28/23 02:22 108/73 04/28/23 02:07 36.3 C L 104 H 22 93 04/28/23 02:07 104/75 04/28/23 02:00 36.2 C L 102 H 22 93 04/28/23 01:52 36.2 C L 110 H 22 04/28/23 01:52 108/83 04/28/23 01:42 36.2 C L 98 H 22 97/60 L 94 04/28/23 01:37 146/75 H 04/28/23 01:37 36.3 C L 116 H 25 H 89 L 04/28/23 01:30 36.3 C L 103 H 22 93 04/28/23 01:22 123/85 04/28/23 01:22 36.3 C L 102 H 22 94 04/28/23 01:07 113/84 04/28/23 01:07 36.4 C L 111 H 22 93 04/28/23 01:00 36.4 C L 93 H 22 94 04/28/23 00:52 36.4 C L 107 H 22 96 04/28/23 00:52 112/83 04/28/23 00:45 36.4 C L 109 H 22 97 04/28/23 00:42 36.4 C L 96 H 24 104/64 04/28/23 00:37 36.4 C L 95 H 22 97 04/28/23 00:37 111/68 04/28/23 00:30 36.5 C 102 H 22 96 04/28/23 00:22 36.5 C 105 H 22 97 04/28/23 00:22 103/78 04/28/23 00:15 36.5 C 101 H 22 96 04/28/23 00:12 36.5 C 105 H 22 92/57 L 96 04/28/23 00:07 36.5 C 108 H 22 97 04/28/23 00:07 107/76 04/28/23 00:00 36.5 C 105 H 22 97 04/28/23 00:00 04/27/23 23:57 36.5 C 109 H 22 91/57 L 97 04/27/23 23:57 104 H 22 98 04/27/23 23:52 36.5 C 97 H 22 99 04/27/23 23:52 110/83 04/27/23 23:45 36.5 C 105 H 23 99 04/27/23 23:39 36.5 C 101 H 22 91/58 L 99 04/27/23 23:37 36.5 C 112 H 22 99 04/27/23 23:37 109/82 04/27/23 23:30 36.5 C 112 H 22 99 04/27/23 23:15 36.5 C 112 H 22 99 04/27/23 23:11 04/27/23 23:10 Mechanical Vent 04/27/23 23:07 102/74 04/27/23 23:07 36.5 C 118 H 22 99 04/27/23 23:00 36.5 C 107 H 22 99 04/27/23 22:53 Mechanical Vent 04/27/23 22:52 36.5 C 113 H 22 99 04/27/23 22:52 111/76 04/27/23 22:45 36.5 C 106 H 22 99 04/27/23 22:37 111/83 04/27/23 22:37 36.5 C 118 H 22 99 04/27/23 22:30 36.5 C 114 H 22 99 04/27/23 22:22 114/74 04/27/23 22:22 36.5 C 117 H 22 98 04/27/23 22:15 36.6 C 106 H 22 99 04/27/23 22:07 104 H 20 04/27/23 22:07 97/67 L 04/27/23 22:00 115 H 22 99 04/27/23 21:45 111 H 22 99 04/27/23 21:30 121 H 20 99 04/27/23 21:23 124 H 21 97 04/27/23 21:15 113 H 22 98 04/27/23 21:07 94/81 L 04/27/23 21:07 124 H 21 95 04/27/23 21:04 73/53 L 04/27/23 21:04 121 H 23 93 04/27/23 21:00 36.6 C 134 H 22 91 FiO2 04/28/23 07:10 40 04/28/23 06:07 04/28/23 06:07 04/28/23 06:00 04/28/23 05:52 04/28/23 05:52 04/28/23 05:37 04/28/23 05:37 04/28/23 05:30 04/28/23 05:22 04/28/23 05:22 04/28/23 05:07 04/28/23 05:07 04/28/23 05:00 04/28/23 04:52 04/28/23 04:52 04/28/23 04:37 04/28/23 04:37 04/28/23 04:30 04/28/23 04:22 04/28/23 04:22 04/28/23 04:07 04/28/23 04:07 04/28/23 04:00 04/28/23 04:00 40 04/28/23 03:52 04/28/23 03:52 04/28/23 03:40 40 04/28/23 03:37 04/28/23 03:37 04/28/23 03:30 04/28/23 03:22 04/28/23 03:22 04/28/23 03:07 04/28/23 03:07 04/28/23 03:00 04/28/23 02:52 04/28/23 02:52 04/28/23 02:37 04/28/23 02:37 04/28/23 02:30 04/28/23 02:22 04/28/23 02:22 04/28/23 02:07 04/28/23 02:07 04/28/23 02:00 04/28/23 01:52 04/28/23 01:52 04/28/23 01:42 04/28/23 01:37 04/28/23 01:37 04/28/23 01:30 04/28/23 01:22 04/28/23 01:22 04/28/23 01:07 04/28/23 01:07 04/28/23 01:00 04/28/23 00:52 04/28/23 00:52 04/28/23 00:45 04/28/23 00:42 04/28/23 00:37 04/28/23 00:37 04/28/23 00:30 04/28/23 00:22 04/28/23 00:22 04/28/23 00:15 04/28/23 00:12 04/28/23 00:07 04/28/23 00:07 04/28/23 00:00 04/28/23 00:00 70 04/27/23 23:57 04/27/23 23:57 70 04/27/23 23:52 04/27/23 23:52 04/27/23 23:45 04/27/23 23:39 04/27/23 23:37 04/27/23 23:37 04/27/23 23:30 04/27/23 23:15 04/27/23 23:11 70 04/27/23 23:10 04/27/23 23:07 04/27/23 23:07 04/27/23 23:00 04/27/23 22:53 70 04/27/23 22:52 04/27/23 22:52 04/27/23 22:45 04/27/23 22:37 04/27/23 22:37 04/27/23 22:30 04/27/23 22:22 04/27/23 22:22 04/27/23 22:15 04/27/23 22:07 04/27/23 22:07 04/27/23 22:00 04/27/23 21:45 04/27/23 21:30 04/27/23 21:23 04/27/23 21:15 04/27/23 21:07 04/27/23 21:07 04/27/23 21:04 04/27/23 21:04 04/27/23 21:00 Critical Care Results & Data Vital Signs (Past 12 Hours) Vital Signs Temp Pulse Resp BP Pulse Ox O2 Del Method O2 Del Method 04/28/23 07:10 114 H 25 H 93 04/28/23 06:07 36.5 C 98 H 22 94 04/28/23 06:07 139/93 04/28/23 06:00 36.5 C 105 H 22 94 04/28/23 05:52 131/94 04/28/23 05:52 36.6 C 107 H 22 94 04/28/23 05:37 137/93 04/28/23 05:37 36.6 C 113 H 22 94 04/28/23 05:30 36.6 C 110 H 22 94 04/28/23 05:22 36.6 C 91 H 22 93 04/28/23 05:22 120/82 04/28/23 05:07 36.6 C 99 H 22 93 04/28/23 05:07 128/80 04/28/23 05:00 36.6 C 96 H 22 93 04/28/23 04:52 36.6 C 93 H 22 93 04/28/23 04:52 118/93 04/28/23 04:37 36.5 C 101 H 22 94 04/28/23 04:37 125/91 04/28/23 04:30 36.5 C 93 H 22 94 04/28/23 04:22 36.5 C 106 H 22 94 04/28/23 04:22 124/97 04/28/23 04:07 36.5 C 106 H 22 94 04/28/23 04:07 129/89 04/28/23 04:00 36.5 C 101 H 22 94 04/28/23 04:00 04/28/23 03:52 36.5 C 111 H 22 95 04/28/23 03:52 126/98 04/28/23 03:40 105 H 22 94 04/28/23 03:37 36.5 C 105 H 21 04/28/23 03:37 148/113 H 04/28/23 03:30 36.4 C L 107 H 22 94 04/28/23 03:22 36.4 C L 117 H 22 94 04/28/23 03:22 122/82 04/28/23 03:07 134/91 04/28/23 03:07 36.4 C L 99 H 22 95 04/28/23 03:00 36.4 C L 104 H 23 94 04/28/23 02:52 36.4 C L 103 H 22 94 04/28/23 02:52 110/84 04/28/23 02:37 105/76 04/28/23 02:37 36.4 C L 90 22 94 04/28/23 02:30 36.3 C L 93 H 22 93 04/28/23 02:22 36.3 C L 105 H 22 93 04/28/23 02:22 108/73 04/28/23 02:07 36.3 C L 104 H 22 93 04/28/23 02:07 104/75 04/28/23 02:00 36.2 C L 102 H 22 93 04/28/23 01:52 36.2 C L 110 H 22 04/28/23 01:52 108/83 04/28/23 01:42 36.2 C L 98 H 22 97/60 L 94 04/28/23 01:37 146/75 H 04/28/23 01:37 36.3 C L 116 H 25 H 89 L 04/28/23 01:30 36.3 C L 103 H 22 93 04/28/23 01:22 123/85 04/28/23 01:22 36.3 C L 102 H 22 94 04/28/23 01:07 113/84 04/28/23 01:07 36.4 C L 111 H 22 93 04/28/23 01:00 36.4 C L 93 H 22 94 04/28/23 00:52 36.4 C L 107 H 22 96 04/28/23 00:52 112/83 04/28/23 00:45 36.4 C L 109 H 22 97 04/28/23 00:42 36.4 C L 96 H 24 104/64 04/28/23 00:37 36.4 C L 95 H 22 97 04/28/23 00:37 111/68 04/28/23 00:30 36.5 C 102 H 22 96 04/28/23 00:22 36.5 C 105 H 22 97 04/28/23 00:22 103/78 04/28/23 00:15 36.5 C 101 H 22 96 04/28/23 00:12 36.5 C 105 H 22 92/57 L 96 04/28/23 00:07 36.5 C 108 H 22 97 04/28/23 00:07 107/76 04/28/23 00:00 36.5 C 105 H 22 97 04/28/23 00:00 04/27/23 23:57 36.5 C 109 H 22 91/57 L 97 04/27/23 23:57 104 H 22 98 04/27/23 23:52 36.5 C 97 H 22 99 04/27/23 23:52 110/83 04/27/23 23:45 36.5 C 105 H 23 99 04/27/23 23:39 36.5 C 101 H 22 91/58 L 99 04/27/23 23:37 36.5 C 112 H 22 99 04/27/23 23:37 109/82 04/27/23 23:30 36.5 C 112 H 22 99 04/27/23 23:15 36.5 C 112 H 22 99 04/27/23 23:11 04/27/23 23:10 Mechanical Vent 04/27/23 23:07 102/74 04/27/23 23:07 36.5 C 118 H 22 99 04/27/23 23:00 36.5 C 107 H 22 99 04/27/23 22:53 Mechanical Vent 04/27/23 22:52 36.5 C 113 H 22 99 04/27/23 22:52 111/76 04/27/23 22:45 36.5 C 106 H 22 99 04/27/23 22:37 111/83 04/27/23 22:37 36.5 C 118 H 22 99 04/27/23 22:30 36.5 C 114 H 22 99 04/27/23 22:22 114/74 04/27/23 22:22 36.5 C 117 H 22 98 04/27/23 22:15 36.6 C 106 H 22 99 04/27/23 22:07 104 H 20 04/27/23 22:07 97/67 L 04/27/23 22:00 115 H 22 99 04/27/23 21:45 111 H 22 99 04/27/23 21:30 121 H 20 99 04/27/23 21:23 124 H 21 97 04/27/23 21:15 113 H 22 98 04/27/23 21:07 94/81 L 04/27/23 21:07 124 H 21 95 04/27/23 21:04 73/53 L 04/27/23 21:04 121 H 23 93 04/27/23 21:00 36.6 C 134 H 22 91 FiO2 04/28/23 07:10 40 04/28/23 06:07 04/28/23 06:07 04/28/23 06:00 04/28/23 05:52 04/28/23 05:52 04/28/23 05:37 04/28/23 05:37 04/28/23 05:30 04/28/23 05:22 04/28/23 05:22 04/28/23 05:07 04/28/23 05:07 04/28/23 05:00 04/28/23 04:52 04/28/23 04:52 04/28/23 04:37 04/28/23 04:37 04/28/23 04:30 04/28/23 04:22 04/28/23 04:22 04/28/23 04:07 04/28/23 04:07 04/28/23 04:00 04/28/23 04:00 40 04/28/23 03:52 04/28/23 03:52 04/28/23 03:40 40 04/28/23 03:37 04/28/23 03:37 04/28/23 03:30 04/28/23 03:22 04/28/23 03:22 04/28/23 03:07 04/28/23 03:07 04/28/23 03:00 04/28/23 02:52 04/28/23 02:52 04/28/23 02:37 04/28/23 02:37 04/28/23 02:30 04/28/23 02:22 04/28/23 02:22 04/28/23 02:07 04/28/23 02:07 04/28/23 02:00 04/28/23 01:52 04/28/23 01:52 04/28/23 01:42 04/28/23 01:37 04/28/23 01:37 04/28/23 01:30 04/28/23 01:22 04/28/23 01:22 04/28/23 01:07 04/28/23 01:07 04/28/23 01:00 04/28/23 00:52 04/28/23 00:52 04/28/23 00:45 04/28/23 00:42 04/28/23 00:37 04/28/23 00:37 04/28/23 00:30 04/28/23 00:22 04/28/23 00:22 04/28/23 00:15 04/28/23 00:12 04/28/23 00:07 04/28/23 00:07 04/28/23 00:00 04/28/23 00:00 70 04/27/23 23:57 04/27/23 23:57 70 04/27/23 23:52 04/27/23 23:52 04/27/23 23:45 04/27/23 23:39 04/27/23 23:37 04/27/23 23:37 04/27/23 23:30 04/27/23 23:15 04/27/23 23:11 70 04/27/23 23:10 04/27/23 23:07 04/27/23 23:07 04/27/23 23:00 04/27/23 22:53 70 04/27/23 22:52 04/27/23 22:52 04/27/23 22:45 04/27/23 22:37 04/27/23 22:37 04/27/23 22:30 04/27/23 22:22 04/27/23 22:22 04/27/23 22:15 04/27/23 22:07 04/27/23 22:07 04/27/23 22:00 04/27/23 21:45 04/27/23 21:30 04/27/23 21:23 04/27/23 21:15 04/27/23 21:07 04/27/23 21:07 04/27/23 21:04 04/27/23 21:04 04/27/23 21:00 Lab & Micro Results (Past 24 Hours) RBC 2.62 M/uL (4.70-6.10) L 04/28/23 WBC 3.10 K/ul (4.8-10.8) L 04/28/23 Hgb 8.1 g/dl (14.0-18.0) L 04/28/23 Hct 24.8 % (42.0-52.0) L 04/28/23 MCV 94.7 fL (80.0-100.0) 04/28/23 MCH 30.9 pg (25.0-34.0) 04/28/23 MCHC 32.7 g/dL (32.0-36.0) 04/28/23 RDW Standard Deviation 67.8 fL (36.4-46.3) H 04/28/23 RDW Coefficient of Variation 20.4 % (11.5-14.5) H 04/28/23 Plt Count 65 K/uL (130-400) L 04/28/23 MPV 11.1 fL (9.4-12.4) 04/28/23 Nucleated Red Blood Cells % (auto) 1.3 % 04/27 Nucleated RBC Absolute Count (auto) 0.04 K/uL (0.00-0.12) 0 04/28/23 Neutrophils (%) (Auto) 91.0 % 04/28/23 Lymphocytes (%) (Auto) 4.8 % 04/28/23 Monocytes # (Auto) 0.08 K/uL (0.11-0.59) L 04/28/23 Eosinophils # (Auto) 0.00 K/uL (0.00-0.50) 04/28/23 Immature Granulocyte % (Auto) 0.3 % 04/28/23 Neutrophils # (Auto) 2.82 K/uL (1.40-6.50) 04/28/23 Lymphocytes # (Auto) 0.15 K/uL (1.20-3.40) L 04/28/23 Monocytes # (Auto) 0.08 K/uL (0.11-0.59) L 04/28/23 Eosinophils # (Auto) 0.00 K/uL (0.00-0.50) 04/28/23 Basophils # (Auto) 0.04 K/uL (0.00-0.20) 04/28/23 Immature Granulocyte # (Auto) 0.01 K/uL (0.01-0.20) 4 Anisocytosis Present 04/28/23 Toxic Granulation 2+ 04/28/23 Toxic Vacuolation 1+ 04/28/23 Na 135 mmol/L (136-145) L 04/28/23 K 3.9 mmol/L (3.5-5.1) 04/28/23 Cl 102 mmol/L (98-107) 04/28/23 CO2 24 mmol/L (21-32) 04/28/23 Anion Gap 9 (3-11) 04/28/23 BUN 61 mg/dl (6-23) H 04/28/23 Creatinine 0.99 mg/dl (0.6-1.4) 04/28/23 Estimated GFR ( Amer) 93.6 ml/min 04/28/23 Estimated GFR (Non-Af Amer) 80.7 ml/min 04/28/23 BUN/Creatinine Ratio 61.6 (10-20) H 04/28/23 Glu 258 mg/dl (70-99(Fasting)) H 04/28/23 Ca 7.6 mg/dl (8.6-10.3) L 04/28/23 Phosphorus Level 4.1 mg/dl (2.5-4.9) 04/28/23 Total Bilirubin 1.7 mg/dl (0.2-1.0) H 04/28/23 Direct Bilirubin 0.7 mg/dl (0-0.2) H 04/27/23 AST 82 U/L (13-39) H 04/28/23 ALT 63 U/L (7-52) H 04/28/23 Alkaline Phosphatase 73 U/L (34-104) 04/28/23 TP 5.6 gm/dl (6.0-8.3) L 04/28/23 Albumin 2.0 gm/dl (3.4-5.0) L 04/28/23 Globulin 3.6 gm/dl (2.5-4.0) 04/28/23 Albumin/Globulin Ratio 0.6 (0.9-2) L 04/28/23 Mg 2.1 mg/dl (1.7-2.4) 04/28/23 04:20 Calcium Level 7.6 mg/dl (8.6-10.3) L 04/28/23 04:20 Prothromb Time International Ratio 1.3 (0.9-1.1) H 04/27/23 22 :23 Jeremy Test NA 04/28/23 09:57 Microbiology 04/27/23 17:00 Gram Stain - Final Sputum, Expectorated Sputum Culture - Preliminary Gram negative bacilli Diagnostic Findings (Past 24 Hours) Chest X-Ray 04/27/23 17:20 XR chest 1V portable HISTORY: Sepsis COMPARISON: Chest 09/22/2023. FINDINGS: No pneumothorax. Emphysema again noted. Trace right pleural effusion. Patchy bibasilar airspace opacities and the irregular right upper lobe airspace opacity have progressed. A gastrostomy tube is noted within the left upper quadrant. No evidence for pulmonary edema. No acute fractures. IMPRESSION: 1. Interval progression of bilateral airspace opacities suggestive of a p neumonia. 2. Continued follow-up recommended to ensure resolution of the right upper lobe irregular opacity. 3. Trace right pleural effusion. ACT 112: Negative or not required by law. Electronically signed by: Alex Pena M.D. 04/27/2023 6:15 PM Chest CTA 04/27/23 20:07 CR Exam(s): CTA CHEST IV Amt: OPTIRAY [id number] EXAM: CT Angiography Chest With Intravenous Contrast CLINICAL HISTORY: Reason for exam: PE. TECHNIQUE: Axial computed tomographic angiography images of the chest with intravenous contrast. CTDI is 12.93 mGy and DLP is 482.03 mGy-cm. Automated exposure control was utilized for the study. A dose lowering technique was utilized adhering to the principles of ALARA. MIP reconstructed images were created and reviewed. COMPARISON: No relevant prior studies available. FINDINGS: Pulmonary arteries: There is saddle thrombus identified at the bifurcation of the main pulmonary artery with extension into the lobar branches of the lower lobes and right middle lobe. Aorta: No acute findings. No thoracic aortic aneurysm. Lungs: Extensive multifocal consolidations are seen in bilateral lungs, most prominently involving the lower lobes and right middle lobe. Moderate centrilobular emphysema. 6.2 cm emphysematous bulla seen in the right upper lobe, containing a 1.9 cm dependent nodularity. Pleural space: Unremarkable. No significant effusion. No pneumothorax. Heart: Unremarkable. No cardiomegaly. No significant pericardial effusion. No evidence of RV dysfunction. Bones/joints: No acute fracture. No dislocation. Soft tissues: Unremarkable. Lymph nodes: Unremarkable. No enlarged lymph nodes. IMPRESSION: 1. Bilateral pulmonary embolism 2. Bilateral multifocal pneumonia 3. Cavitary lesion in the right lung apex with dependent nodularity. Aspergilloma cannot be excluded. Communications: Call Doctor Pulmonary Embolism Electronically signed by: Steven Anne MD 04/27/23 22:46 PM Chest X-Ray 04/27/23 20:07 SINGLE VIEW CHEST CLINICAL HISTORY: Respiratory failure. Intubation. FINDINGS: 2 AP, portable, semierect chest radiographs are compared to chest x- ray and chest CT performed earlier the same day 04/27/2023. A right internal jugular central venous catheters in place. The tip projects over the SVC. Endotr acheal tube has been placed. The tip projects approximately 4.5 cm above the quentin. The cardiomediastinal silhouette is top normal for projection and noting atherosclerotic calcification of the thoracic aorta. Advanced emphysema and chronic interstitial thickening is similar to previous. Multifocal airspace consolidation is again seen throughout both lungs, greatest at the lung bases. Cavitation and fibrosis is noted at the right apex. There is no large pleural effusion or pneumothorax. The skeletal structures are osteopenic. The bony thorax is grossly intact. IMPRESSION: 1. Endotracheal tube and central venous catheter placement as above. 2. Advanced emphysema. 3. Multifocal airspace consolidation is again noted an typical for pneumonia. Clinical correlation will be required and radiographic follow-up to resolution is recommended. ACT 112: Negative or not required by law. Electronically signed by: Red Camara M.D. 04/28/2023 7:33 AM I & O Totals 24 Hours 04/27/23 04/28/23 04/29/23 06:59 06:59 06:59 Intake Total 5387.803 / 5387.803 265 / 265 Output Total 605 / 605 Balance 4782.803 / 4782.803 265 / 265 Cumulative 04/27/23 16:18 thru 04/28/23 07:38 Intake Total 5652.803 Output Total 605 Balance 5047.803 RT Ventilator Mngmt (Last Documented) Ventilator Ordered Settings Ventilator Support Mode Assist Control 04/28/23 07:10 Respiratory Rate 25 04/28/23 07:10 Ventilator Tidal Volume 450 04/28/23 07:10 Setting Minute Ventilation 1.9 04/28/23 07:10 Positive End Expiratory 5 04/28/23 07:10 Pressure Fraction of Inspired Oxygen 40 04/28/23 07:10 Peak Inspiratory Flow 40 04/28/23 07:10 Ventilator - PT Measurements Respiratory Rate 25 Exhaled Tidal Volume 450 Minute Ventilation 1.9 Peak Inspiratory Airway 16 Pressure Plateau Pressure 14.4 Respiratory Cycle Inspiratory: 1:2.0 Expiratory Ratio Inspiratory Phase Time 0.90 End-Tidal CO2 26 Static Lung Compliance 47.87 Dynamic Lung Compliance 40.91 Normal Static Lung Compliance 48.00 Patient Measurements Comment Advanced tube 2cm per Du COLLINS. Decreased FIO2 to 40%. Coding Level of Care Code 67154 CRITICAL CARE 1ST 30-74M Diagnoses Acute massive pulmonary embolism I26.99 Severe sepsis A41.9; R65.20 Acute respiratory failure J96.00 Cavitary lesion of lung J98.4 Severe malnutrition E43 Pancytopenia due to antineoplastic chemotherapy D61.810; T45.1X5A Hyponatremia E87.1
--- NOTE | 2023-04-28 09:40 | Pulmonary Consultation ---
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 Recommendations: 1. Pulmonary embolism: Anticoagulation with heparin. Patient apparently refused thrombolytics previously. Defer to critical care services to whether or not systemic thrombolytics would be warranted. Echocardiogram pending 2. Cavitary right upper lobe lesion: Possible mycetoma given the appearance. G iven its lack of progression, malignancy seems less likely. Other infectious etiologies including mycobacterial infection and actinomyces would be possible as well. Will plan on proceeding with bronchoscopy with BAL of the upper lobe. Aspergillus precipitants are pending. 3. Multifocal pneumonia, highly likely this represents an aspiration event. Bronchoscopy with lavage of the lower lobes will be performed to direct antimicrobial therapy. Patient is currently receiving cefepime azithromycin and vancomycin. May require infectious disease input. 4. Hypoxemic respiratory failure: Secondary to #1, 2, and 3. Continue supportive care. Vent management per critical care services. Prognosis appears markedly guarded at this point in time given the patient's underlying medical issues and poor conditional status with severe cachexia/malnutrition, PE, and malignancy. Discussed with critical care services extensively. History of Present Illness Attending Physician: Jose Manuel Rodriguez MD History of Present Illness Asked by critical care to evaluate this patient with multifocal pneumonia, hypoxemic respiratory failure, and cavitary right upper lobe lesion. History is obtained from discussion with the critical care team as well as review the electronic medical record. The patient is intubated and unable to provide any history. The patient is a 62-year-old male smoker who is established with [facility]. He has a history of a cavitary right upper lobe lesion of unclear etiology. Unfortunately this point, do not have records from his prior evaluation but it appears that at some point time he underwent a bronchoscopy. He may have been diagnosed with Aspergillus and was prescribed voriconazole although it is unclear if he actually completed the medication. The cavitary upper lobe lesion appears stable compared to imaging performed about 3 to 4 months ago. Patient apparently was following with his [facility] pulmonary team and was complaining of increasing secretions recently and was actually scheduled to undergo bronchoscopy within the next week or so but unfortunately declined clinically and presented to the hospital. The patient was brought to the emergency room last evening with shortness of breath and productive cough. He was hypoxemic and tachycardic. His lactic acid was elevated and he required vasopressors. CT scan showed large pulmonary embolus and the patient was anticoagulated. He was intubated in the emergency room and admitted to the intensive care unit. Central lines were placed. He had NT suctioning performed prior to intubation. Has been initiated on broad- spectrum antibiotics. He remained significantly hypotensive and tachycardic. The patient has a history of squamous cell carcinoma of the tongue treated with primary radiation therapy. It is unclear if he ever received chemotherapy. His performance status is poor. He is nonverbal due to the tongue lesion and communicates via writing on a pad. He has a PEG tube in place. Does have issues with aspiration. Allergies Allergy/AdvReac Type Severity Reaction Status Date / Time No Known Allergies Allergy Verified 04/27/23 18:46 Home Medications Medication Instructions Recorded Confirmed Type ondansetron HCl 8 mg tablet 8 mg PO Q8H PRN Nausea And Vomiting 01/14/23 04/27/23 History prochlorperazine maleate 10 mg 10 mg PO Q6H PRN Nausea And 01/14/23 04/27/23 History tablet (Compazine) Vomiting Magic Mouthwash 300 mL mouthwash 10 ml mucous membrane ACHS PRN 01/27/23 04/27/23 Rx mouth pain #300 mL morphine concentrate 100 mg/5 mL 5 mg PO Q4H PRN Pain 03/19/23 04/27/23 History (20 mg/mL) oral solution albuterol sulfate 90 mcg/actuation 2 inh inhalation Q6H PRN Shortness 04/01/23 04/27/23 History aerosol inhaler Of Breath/COUGH/WHEEZING Nutramigen Feedings 1 dose feeding tube DIRECTED 04/27/23 04/27/23 History fentanyl 12 mcg/hr transdermal 12 mcg transdermal Q72H 04/27/23 04/27/23 History patch tiotropium bromide 2.5 2 puff inhalation QAM 04/27/23 04/27/23 History mcg/actuation mist for inhalation (Spiriva Respimat) Patient History Medical History Cavitary lesion of lung Severe malnutrition Cancer of oral cavity Venous insufficiency Cavitary lung disease Centrilobular emphysema Tobacco use disorder Surgical History S/P percutaneous endoscopic gastrostomy (PEG) tube placement S/P bronchoscopy Family History Mother Myocardial infarction Father Myocardial infarction Sister Myocardial infarction Social History Smoking Status: Former smoker Tobacco Type: Cigarettes Age Started Using Tobacco: 15; Second Hand Exposure: No; Do You Dip or Chew Tobacco: No; Hx Alcohol Use: No Hx Substance Use: No Preferred Language: Uzbek Communication Ability: Impaired Communication Ability Comment: does have difficulty speaking due to oral pain Visual Impairment: No Limitations Hearing Ability: Normal Beliefs That Will Affect Care: None Current Living Situation: Alone Current Living Situation Comment: Alone in house current occupational status: employed 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 Feels Safe at Home: Yes Diet: Pureed during the past year weight has: decreased > 10 lbs Assistive Devices: None Review of Systems Review of Systems: Unobtainable due to endotracheal tube Physical Exam Physical Exam: PHYSICAL EXAM: General: Sedated, cachectic and wasted Head: Normocephalic, atraumatic ENT: PERRLA, EOMI, no pharyngeal exudate, mucous membranes, dry Neuro: Intubated and sedated, was moving all extremities prior to intubation and is moving extremities through sedation, follows commands, PEERLA Chest: equal rise and fall of the chest, scattered rhonchi throughout, inspiratory and expiratory wheeze, Cardiac: irregular rate and rhythm, telemetry reviewed- afib, skin warm dry, cap refill <3 seconds, peripheral pulses +2 no JVD, no murmur, no edema GI: NABS x 4 quadrants, soft, nontender to palpation, no rebound, guarding or tenderness, PEG tube in place with dried gastric secretions around outside : Anderson to gravity Psych: Normal mood and affect Skin: venous discolorations to bilateral lower extremities, cachectic Results & Data Results & Data Vital Signs (Past 12 Hours) Vital Signs Temp Pulse Resp BP Pulse Ox O2 Del Method O2 Del Method 04/28/23 07:10 114 H 25 H 93 04/28/23 06:07 36.5 C 98 H 22 94 04/28/23 06:07 139/93 04/28/23 06:00 36.5 C 105 H 22 94 04/28/23 05:52 131/94 04/28/23 05:52 36.6 C 107 H 22 94 04/28/23 05:37 137/93 04/28/23 05:37 36.6 C 113 H 22 94 04/28/23 05:30 36.6 C 110 H 22 94 04/28/23 05:22 36.6 C 91 H 22 93 04/28/23 05:22 120/82 04/28/23 05:07 36.6 C 99 H 22 93 04/28/23 05:07 128/80 04/28/23 05:00 36.6 C 96 H 22 93 04/28/23 04:52 36.6 C 93 H 22 93 04/28/23 04:52 118/93 04/28/23 04:37 36.5 C 101 H 22 94 04/28/23 04:37 125/91 04/28/23 04:30 36.5 C 93 H 22 94 04/28/23 04:22 36.5 C 106 H 22 94 04/28/23 04:22 124/97 04/28/23 04:07 36.5 C 106 H 22 94 04/28/23 04:07 129/89 04/28/23 04:00 36.5 C 101 H 22 94 04/28/23 04:00 04/28/23 03:52 36.5 C 111 H 22 95 04/28/23 03:52 126/98 04/28/23 03:40 105 H 22 94 04/28/23 03:37 36.5 C 105 H 21 04/28/23 03:37 148/113 H 04/28/23 03:30 36.4 C L 107 H 22 94 04/28/23 03:22 36.4 C L 117 H 22 94 04/28/23 03:22 122/82 04/28/23 03:07 134/91 04/28/23 03:07 36.4 C L 99 H 22 95 04/28/23 03:00 36.4 C L 104 H 23 94 04/28/23 02:52 36.4 C L 103 H 22 94 04/28/23 02:52 110/84 04/28/23 02:37 105/76 04/28/23 02:37 36.4 C L 90 22 94 04/28/23 02:30 36.3 C L 93 H 22 93 04/28/23 02:22 36.3 C L 105 H 22 93 04/28/23 02:22 108/73 04/28/23 02:07 36.3 C L 104 H 22 93 04/28/23 02:07 104/75 04/28/23 02:00 36.2 C L 102 H 22 93 04/28/23 01:52 36.2 C L 110 H 22 04/28/23 01:52 108/83 04/28/23 01:42 36.2 C L 98 H 22 97/60 L 94 04/28/23 01:37 146/75 H 04/28/23 01:37 36.3 C L 116 H 25 H 89 L 04/28/23 01:30 36.3 C L 103 H 22 93 04/28/23 01:22 123/85 04/28/23 01:22 36.3 C L 102 H 22 94 04/28/23 01:07 113/84 04/28/23 01:07 36.4 C L 111 H 22 93 04/28/23 01:00 36.4 C L 93 H 22 94 04/28/23 00:52 36.4 C L 107 H 22 96 04/28/23 00:52 112/83 04/28/23 00:45 36.4 C L 109 H 22 97 04/28/23 00:42 36.4 C L 96 H 24 104/64 04/28/23 00:37 36.4 C L 95 H 22 97 04/28/23 00:37 111/68 04/28/23 00:30 36.5 C 102 H 22 96 04/28/23 00:22 36.5 C 105 H 22 97 04/28/23 00:22 103/78 04/28/23 00:15 36.5 C 101 H 22 96 04/28/23 00:12 36.5 C 105 H 22 92/57 L 96 04/28/23 00:07 36.5 C 108 H 22 97 04/28/23 00:07 107/76 04/28/23 00:00 36.5 C 105 H 22 97 04/28/23 00:00 04/27/23 23:57 36.5 C 109 H 22 91/57 L 97 04/27/23 23:57 104 H 22 98 04/27/23 23:52 36.5 C 97 H 22 99 04/27/23 23:52 110/83 04/27/23 23:45 36.5 C 105 H 23 99 04/27/23 23:39 36.5 C 101 H 22 91/58 L 99 04/27/23 23:37 36.5 C 112 H 22 99 04/27/23 23:37 109/82 04/27/23 23:30 36.5 C 112 H 22 99 04/27/23 23:15 36.5 C 112 H 22 99 04/27/23 23:11 04/27/23 23:10 Mechanical Vent 04/27/23 23:07 102/74 04/27/23 23:07 36.5 C 118 H 22 99 04/27/23 23:00 36.5 C 107 H 22 99 04/27/23 22:53 Mechanical Vent 04/27/23 22:52 36.5 C 113 H 22 99 04/27/23 22:52 111/76 04/27/23 22:45 36.5 C 106 H 22 99 04/27/23 22:37 111/83 04/27/23 22:37 36.5 C 118 H 22 99 04/27/23 22:30 36.5 C 114 H 22 99 04/27/23 22:22 114/74 04/27/23 22:22 36.5 C 117 H 22 98 04/27/23 22:15 36.6 C 106 H 22 99 04/27/23 22:07 104 H 20 04/27/23 22:07 97/67 L 04/27/23 22:00 115 H 22 99 04/27/23 21:45 111 H 22 99 FiO2 04/28/23 07:10 40 04/28/23 06:07 04/28/23 06:07 04/28/23 06:00 04/28/23 05:52 04/28/23 05:52 04/28/23 05:37 04/28/23 05:37 04/28/23 05:30 04/28/23 05:22 04/28/23 05:22 04/28/23 05:07 04/28/23 05:07 04/28/23 05:00 04/28/23 04:52 04/28/23 04:52 04/28/23 04:37 04/28/23 04:37 04/28/23 04:30 04/28/23 04:22 04/28/23 04:22 04/28/23 04:07 04/28/23 04:07 04/28/23 04:00 04/28/23 04:00 40 04/28/23 03:52 04/28/23 03:52 04/28/23 03:40 40 04/28/23 03:37 04/28/23 03:37 04/28/23 03:30 04/28/23 03:22 04/28/23 03:22 04/28/23 03:07 04/28/23 03:07 04/28/23 03:00 04/28/23 02:52 04/28/23 02:52 04/28/23 02:37 04/28/23 02:37 04/28/23 02:30 04/28/23 02:22 04/28/23 02:22 04/28/23 02:07 04/28/23 02:07 04/28/23 02:00 04/28/23 01:52 04/28/23 01:52 04/28/23 01:42 04/28/23 01:37 04/28/23 01:37 04/28/23 01:30 04/28/23 01:22 04/28/23 01:22 04/28/23 01:07 04/28/23 01:07 04/28/23 01:00 04/28/23 00:52 04/28/23 00:52 04/28/23 00:45 04/28/23 00:42 04/28/23 00:37 04/28/23 00:37 04/28/23 00:30 04/28/23 00:22 04/28/23 00:22 04/28/23 00:15 04/28/23 00:12 04/28/23 00:07 04/28/23 00:07 04/28/23 00:00 04/28/23 00:00 70 04/27/23 23:57 04/27/23 23:57 70 04/27/23 23:52 04/27/23 23:52 04/27/23 23:45 04/27/23 23:39 04/27/23 23:37 04/27/23 23:37 04/27/23 23:30 04/27/23 23:15 04/27/23 23:11 70 04/27/23 23:10 04/27/23 23:07 04/27/23 23:07 04/27/23 23:00 04/27/23 22:53 70 04/27/23 22:52 04/27/23 22:52 04/27/23 22:45 04/27/23 22:37 04/27/23 22:37 04/27/23 22:30 04/27/23 22:22 04/27/23 22:22 04/27/23 22:15 04/27/23 22:07 04/27/23 22:07 04/27/23 22:00 04/27/23 21:45 Critical Care Results & Data Vital Signs (Past 12 Hours) Vital Signs Temp Pulse Resp BP Pulse Ox O2 Del Method O2 Del Method 04/28/23 07:10 114 H 25 H 93 04/28/23 06:07 36.5 C 98 H 22 94 04/28/23 06:07 139/93 04/28/23 06:00 36.5 C 105 H 22 94 04/28/23 05:52 131/94 04/28/23 05:52 36.6 C 107 H 22 94 04/28/23 05:37 137/93 04/28/23 05:37 36.6 C 113 H 22 94 04/28/23 05:30 36.6 C 110 H 22 94 04/28/23 05:22 36.6 C 91 H 22 93 04/28/23 05:22 120/82 04/28/23 05:07 36.6 C 99 H 22 93 04/28/23 05:07 128/80 04/28/23 05:00 36.6 C 96 H 22 93 04/28/23 04:52 36.6 C 93 H 22 93 04/28/23 04:52 118/93 04/28/23 04:37 36.5 C 101 H 22 94 04/28/23 04:37 125/91 04/28/23 04:30 36.5 C 93 H 22 94 04/28/23 04:22 36.5 C 106 H 22 94 04/28/23 04:22 124/97 04/28/23 04:07 36.5 C 106 H 22 94 04/28/23 04:07 129/89 04/28/23 04:00 36.5 C 101 H 22 94 04/28/23 04:00 04/28/23 03:52 36.5 C 111 H 22 95 04/28/23 03:52 126/98 04/28/23 03:40 105 H 22 94 04/28/23 03:37 36.5 C 105 H 21 04/28/23 03:37 148/113 H 04/28/23 03:30 36.4 C L 107 H 22 94 04/28/23 03:22 36.4 C L 117 H 22 94 04/28/23 03:22 122/82 04/28/23 03:07 134/91 04/28/23 03:07 36.4 C L 99 H 22 95 04/28/23 03:00 36.4 C L 104 H 23 94 04/28/23 02:52 36.4 C L 103 H 22 94 04/28/23 02:52 110/84 04/28/23 02:37 105/76 04/28/23 02:37 36.4 C L 90 22 94 04/28/23 02:30 36.3 C L 93 H 22 93 04/28/23 02:22 36.3 C L 105 H 22 93 04/28/23 02:22 108/73 04/28/23 02:07 36.3 C L 104 H 22 93 04/28/23 02:07 104/75 04/28/23 02:00 36.2 C L 102 H 22 93 04/28/23 01:52 36.2 C L 110 H 22 04/28/23 01:52 108/83 04/28/23 01:42 36.2 C L 98 H 22 97/60 L 94 04/28/23 01:37 146/75 H 04/28/23 01:37 36.3 C L 116 H 25 H 89 L 04/28/23 01:30 36.3 C L 103 H 22 93 04/28/23 01:22 123/85 04/28/23 01:22 36.3 C L 102 H 22 94 04/28/23 01:07 113/84 04/28/23 01:07 36.4 C L 111 H 22 93 04/28/23 01:00 36.4 C L 93 H 22 94 04/28/23 00:52 36.4 C L 107 H 22 96 04/28/23 00:52 112/83 04/28/23 00:45 36.4 C L 109 H 22 97 04/28/23 00:42 36.4 C L 96 H 24 104/64 04/28/23 00:37 36.4 C L 95 H 22 97 04/28/23 00:37 111/68 04/28/23 00:30 36.5 C 102 H 22 96 04/28/23 00:22 36.5 C 105 H 22 97 04/28/23 00:22 103/78 04/28/23 00:15 36.5 C 101 H 22 96 04/28/23 00:12 36.5 C 105 H 22 92/57 L 96 04/28/23 00:07 36.5 C 108 H 22 97 04/28/23 00:07 107/76 04/28/23 00:00 36.5 C 105 H 22 97 04/28/23 00:00 04/27/23 23:57 36.5 C 109 H 22 91/57 L 97 04/27/23 23:57 104 H 22 98 04/27/23 23:52 36.5 C 97 H 22 99 04/27/23 23:52 110/83 04/27/23 23:45 36.5 C 105 H 23 99 04/27/23 23:39 36.5 C 101 H 22 91/58 L 99 04/27/23 23:37 36.5 C 112 H 22 99 04/27/23 23:37 109/82 04/27/23 23:30 36.5 C 112 H 22 99 04/27/23 23:15 36.5 C 112 H 22 99 04/27/23 23:11 04/27/23 23:10 Mechanical Vent 04/27/23 23:07 102/74 04/27/23 23:07 36.5 C 118 H 22 99 04/27/23 23:00 36.5 C 107 H 22 99 04/27/23 22:53 Mechanical Vent 04/27/23 22:52 36.5 C 113 H 22 99 04/27/23 22:52 111/76 04/27/23 22:45 36.5 C 106 H 22 99 04/27/23 22:37 111/83 04/27/23 22:37 36.5 C 118 H 22 99 04/27/23 22:30 36.5 C 114 H 22 99 04/27/23 22:22 114/74 04/27/23 22:22 36.5 C 117 H 22 98 04/27/23 22:15 36.6 C 106 H 22 99 04/27/23 22:07 104 H 20 04/27/23 22:07 97/67 L 04/27/23 22:00 115 H 22 99 04/27/23 21:45 111 H 22 99 FiO2 04/28/23 07:10 40 04/28/23 06:07 04/28/23 06:07 04/28/23 06:00 04/28/23 05:52 04/28/23 05:52 04/28/23 05:37 04/28/23 05:37 04/28/23 05:30 04/28/23 05:22 04/28/23 05:22 04/28/23 05:07 04/28/23 05:07 04/28/23 05:00 04/28/23 04:52 04/28/23 04:52 04/28/23 04:37 04/28/23 04:37 04/28/23 04:30 04/28/23 04:22 04/28/23 04:22 04/28/23 04:07 04/28/23 04:07 04/28/23 04:00 04/28/23 04:00 40 04/28/23 03:52 04/28/23 03:52 04/28/23 03:40 40 04/28/23 03:37 04/28/23 03:37 04/28/23 03:30 04/28/23 03:22 04/28/23 03:22 04/28/23 03:07 04/28/23 03:07 04/28/23 03:00 04/28/23 02:52 04/28/23 02:52 04/28/23 02:37 04/28/23 02:37 04/28/23 02:30 04/28/23 02:22 04/28/23 02:22 04/28/23 02:07 04/28/23 02:07 04/28/23 02:00 04/28/23 01:52 04/28/23 01:52 04/28/23 01:42 04/28/23 01:37 04/28/23 01:37 04/28/23 01:30 04/28/23 01:22 04/28/23 01:22 04/28/23 01:07 04/28/23 01:07 04/28/23 01:00 04/28/23 00:52 04/28/23 00:52 04/28/23 00:45 04/28/23 00:42 04/28/23 00:37 04/28/23 00:37 04/28/23 00:30 04/28/23 00:22 04/28/23 00:22 04/28/23 00:15 04/28/23 00:12 04/28/23 00:07 04/28/23 00:07 04/28/23 00:00 04/28/23 00:00 70 04/27/23 23:57 04/27/23 23:57 70 04/27/23 23:52 04/27/23 23:52 04/27/23 23:45 04/27/23 23:39 04/27/23 23:37 04/27/23 23:37 04/27/23 23:30 04/27/23 23:15 04/27/23 23:11 70 04/27/23 23:10 04/27/23 23:07 04/27/23 23:07 04/27/23 23:00 04/27/23 22:53 70 04/27/23 22:52 04/27/23 22:52 04/27/23 22:45 04/27/23 22:37 04/27/23 22:37 04/27/23 22:30 04/27/23 22:22 04/27/23 22:22 04/27/23 22:15 04/27/23 22:07 04/27/23 22:07 04/27/23 22:00 04/27/23 21:45 Lab & Micro Results (Past 24 Hours) RBC 2.62 M/uL (4.70-6.10) L 04/28/23 WBC 3.10 K/ul (4.8-10.8) L 04/28/23 Hgb 8.1 g/dl (14.0-18.0) L 04/28/23 Hct 24.8 % (42.0-52.0) L 04/28/23 MCV 94.7 fL (80.0-100.0) 04/28/23 MCH 30.9 pg (25.0-34.0) 04/28/23 MCHC 32.7 g/dL (32.0-36.0) 04/28/23 RDW Standard Deviation 67.8 fL (36.4-46.3) H 04/28/23 RDW Coefficient of Variation 20.4 % (11.5-14.5) H 04/28/23 Plt Count 65 K/uL (130-400) L 04/28/23 MPV 11.1 fL (9.4-12.4) 04/28/23 Nucleated Red Blood Cells % (auto) 1.3 % 04/27 Nucleated RBC Absolute Count (auto) 0.04 K/uL (0.00-0.12) 0 04/28/23 Neutrophils (%) (Auto) 91.0 % 04/28/23 Lymphocytes (%) (Auto) 4.8 % 04/28/23 Monocytes # (Auto) 0.08 K/uL (0.11-0.59) L 04/28/23 Eosinophils # (Auto) 0.00 K/uL (0.00-0.50) 04/28/23 Immature Granulocyte % (Auto) 0.3 % 04/28/23 Neutrophils # (Auto) 2.82 K/uL (1.40-6.50) 04/28/23 Lymphocytes # (Auto) 0.15 K/uL (1.20-3.40) L 04/28/23 Monocytes # (Auto) 0.08 K/uL (0.11-0.59) L 04/28/23 Eosinophils # (Auto) 0.00 K/uL (0.00-0.50) 04/28/23 Basophils # (Auto) 0.04 K/uL (0.00-0.20) 04/28/23 Immature Granulocyte # (Auto) 0.01 K/uL (0.01-0.20) 4 Anisocytosis Present 04/28/23 Toxic Granulation 2+ 04/28/23 Toxic Vacuolation 1+ 04/28/23 Na 135 mmol/L (136-145) L 04/28/23 K 3.9 mmol/L (3.5-5.1) 04/28/23 Cl 102 mmol/L (98-107) 04/28/23 CO2 24 mmol/L (21-32) 04/28/23 Anion Gap 9 (3-11) 04/28/23 BUN 61 mg/dl (6-23) H 04/28/23 Creatinine 0.99 mg/dl (0.6-1.4) 04/28/23 Estimated GFR ( Amer) 93.6 ml/min 04/28/23 Estimated GFR (Non-Af Amer) 80.7 ml/min 04/28/23 BUN/Creatinine Ratio 61.6 (10-20) H 04/28/23 Glu 258 mg/dl (70-99(Fasting)) H 04/28/23 Ca 7.6 mg/dl (8.6-10.3) L 04/28/23 Phosphorus Level 4.1 mg/dl (2.5-4.9) 04/28/23 Total Bilirubin 1.7 mg/dl (0.2-1.0) H 04/28/23 Direct Bilirubin 0.7 mg/dl (0-0.2) H 04/27/23 AST 82 U/L (13-39) H 04/28/23 ALT 63 U/L (7-52) H 04/28/23 Alkaline Phosphatase 73 U/L (34-104) 04/28/23 TP 5.6 gm/dl (6.0-8.3) L 04/28/23 Albumin 2.0 gm/dl (3.4-5.0) L 04/28/23 Globulin 3.6 gm/dl (2.5-4.0) 04/28/23 Albumin/Globulin Ratio 0.6 (0.9-2) L 04/28/23 Mg 2.1 mg/dl (1.7-2.4) 04/28/23 04:20 Calcium Level 7.6 mg/dl (8.6-10.3) L 04/28/23 04:20 Prothromb Time International Ratio 1.3 (0.9-1.1) H 04/27/23 22 :23 Jeremy Test NA 04/27/23 20:23 Microbiology 04/27/23 17:00 Gram Stain - Final Sputum, Expectorated Sputum Culture - Preliminary Gram negative bacilli Diagnostic Findings (Past 24 Hours) Chest X-Ray 04/27/23 17:20 XR chest 1V portable HISTORY: Sepsis COMPARISON: Chest 09/22/2023. FINDINGS: No pneumothorax. Emphysema again noted. Trace right pleural effusion. Patchy bibasilar airspace opacities and the irregular right upper lobe airspace opacity have progressed. A gastrostomy tube is noted within the left upper quadrant. No evidence for pulmonary edema. No acute fractures. IMPRESSION: 1. Interval progression of bilateral airspace opacities suggestive of a pneumonia. 2. Continued follow-up recommended to ensure resolution of the right upper lobe irregular opacity. 3. Trace right pleural effusion. ACT 112: Negative or not required by law. Electronically signed by: Alex Pena M.D. 04/27/2023 6:15 PM Chest CTA 04/27/23 20:07 CR Exam(s): CTA CHEST IV Amt: OPTIRAY [id number] EXAM: CT Angiography Chest With Intravenous Contrast CLINICAL HISTORY: Reason for exam: PE. TECHNIQUE: Axial computed tomographic angiography images of the chest with intravenous contrast. CTDI is 12.93 mGy and DLP is 482.03 mGy-cm. Automated exposure control was utilized for the study. A dose lowering technique was utilized adhering to the principles of ALARA. MIP reconstructed images were created and reviewed. COMPARISON: No relevant prior studies available. FINDINGS: Pulmonary arteries: There is saddle thrombus identified at the bifurcation of the main pulmonary artery with extension into the lobar branches of the lower lobes and right middle lobe. Aorta: No acute findings. No thoracic aortic aneurysm. Lungs: Extensive multifocal consolidations are seen in bilateral lungs, most prominently involving the lower lobes and right middle lobe. Moderate centrilobular emphysema. 6.2 cm emphysematous bulla seen in the right upper lobe, containing a 1.9 cm dependent nodularity. Pleural space: Unremarkable. No significant effusion. No pneumothorax. Heart: Unremarkable. No cardiomegaly. No significant pericardial effusion. No evidence of RV dysfunction. Bones/joints: No acute fracture. No dislocation. Soft tissues: Unremarkable. Lymph nodes: Unremarkable. No enlarged lymph nodes. IMPRESSION: 1. Bilateral pulmonary embolism 2. Bilateral multifocal pneumonia 3. Cavitary lesion in the right lung apex with dependent nodularity. Aspergilloma cannot be excluded. Communications: Call Doctor Pulmonary Embolism Electronically signed by: Steven Anne MD 04/27/23 22:46 PM Chest X-Ray 04/27/23 20:07 SINGLE VIEW CHEST CLINICAL HISTORY: Respiratory failure. Intubation. FINDINGS: 2 AP, portable, semierect chest radiographs are compared to chest x- ray and chest CT performed earlier the same day 04/27/2023. A right internal jugular central venous catheters in place. The tip projects over the SVC. Endotracheal tube has been placed. The tip projects approximately 4.5 cm above the quentin. The cardiomediastinal silhouette is top normal for projection and noting atherosclerotic calcification of the thoracic aorta. Advanced emphysema and chronic interstitial thickening is similar to previous. Multifocal airspace consolidation is again seen throughout both lungs, greatest at the lung bases. Cavitation and fibrosis is noted at the right apex. There is no large pleural effusion or pneumothorax. The skeletal structures are osteopenic. The bony thorax is grossly intact. IMPRESSION: 1. Endotracheal tube and central venous catheter placement as above. 2. Advanced emphysema. 3. Multifocal airspace consolidation is again noted an typical for pneumonia. Clinical correlation will be required and radiographic follow-up to resolution is recommended. ACT 112: Negative or not required by law. Electronically signed by: Red Camara M.D. 04/28/2023 7:33 AM I & O Totals 24 Hours 04/27/23 04/28/23 04/29/23 06:59 06:59 06:59 Intake Total 5387.803 / 5387.803 265 / 265 Output Total 605 / 605 Balance 4782.803 / 4782.803 265 / 265 Cumulative 04/27/23 16:18 thru 04/28/23 07:38 Intake Total 5652.803 Output Total 605 Balance 5047.803 RT Ventilator Mngmt (Last Documented) Ventilator Ordered Settings Ventilator Support Mode Assist Control 04/28/23 07:10 Respiratory Rate 25 04/28/23 07:10 Ventilator Tidal Volume 450 04/28/23 07:10 Setting Minute Ventilation 1.9 04/28/23 07:10 Positive End Expiratory 5 04/28/23 07:10 Pressure Fraction of Inspired Oxygen 40 04/28/23 07:10 Peak Inspiratory Flow 40 04/28/23 07:10 Ventilator - PT Measurements Respiratory Rate 25 Exhaled Tidal Volume 450 Minute Ventilation 1.9 Peak Inspiratory Airway 16 Pressure Plateau Pressure 14.4 Respiratory Cycle Inspiratory: 1:2.0 Expiratory Ratio Inspiratory Phase Time 0.90 End-Tidal CO2 26 Static Lung Compliance 47.87 Dynamic Lung Compliance 40.91 Normal Static Lung Compliance 48.00 Patient Measurements Comment Advanced tube 2cm per Du COLLINS. Decreased FIO2 to 40%. PG Care Time/CCT Total # of Minutes Spent Total Time Spent with Patient: Total time spent is greater than 50% in coordination of care (as documented) at patient's floor/unit and/or counseling patient: Coding Level of Care Code 51520 IN/OBS CONSULT LVL 4,60M Diagnoses Multifocal pneumonia J18.9 Acute massive pulmonary embolism I26.99 Acute respiratory failure with hypoxemia J96.01 Severe malnutrition E43 Cavitary lesion of lung J98.4
--- NOTE | 2023-04-28 09:43 | Procedure Note ---
Procedure Note: Bronchoscopy Procedure Procedure: Fiberoptic bronchoscopy Bronchial washings, left lower lobe Bronchoalveolar lavage, right upper lobe Provider: Kenton Renee MD Consent: Procedure was emergent. Patient is intubated. Family not immediately available Anesthesia: Patient was maintained on fentanyl infusions and received 2 mg of Versed prior to the procedure Procedure: Patient was in the ICU intubated. He was placed on 100% FiO2. Appropriate radiographic studies had been reviewed prior to the procedure. Sta ndard monitoring was applied. The fiberoptic scope was advanced through the existing endotracheal tube via the adapter. The tube was sounded and found to be approximately 3 cm above the quentin. The distal trachea was normal. Main quentin was slightly splayed. Airways appeared mildly inflamed throughout. There were creamy purulent secretions emanating from the bilateral lower lobes. A bronchial washing was performed in the left lower lobe with specimens collected for microbiologic analysis. Lavage was conducted to clear the airways completely. Once the airways were completed, systemic evaluation of the airways was conducted. Airways were normal in anatomic configuration and diffusely inflamed throughout without evidence of endobronchial lesion. Scope was then wedged into the apical segment of the right upper lobe and a BAL performed with instillation of 60 cc of saline. The return was cloudy but not bloody. The bronchoscope was then removed from the airways. The patient tolerated the procedure well without obvious complication. Patient was returned to the recovery room. Impression: 1. Endotracheal tube in good position. 2. Mucopurulent secretions from the bilateral lower lobes collected via bronchial washing for microbiologic analysis. 3. BAL of the cavitary lesion in the right apex, await microbiologic including AFB and fungal stains and cultures as well as cytology. [facility] [place] Codes (Charges) Pulmonary/Thoracic Procedure 1: Pulmonary and Thoracic: 18611 Dx bronchoscopy/BAL Procedure 2: Pulmonary and Thoracic: 86655 Dx bronchoscopy/wash
[2023-04-28 09:53] LABS: A calco-baum cmplx NotReported Not Detected (NotDetected); Bact fragilis Not Reported Not Detected (NotDetected); Blood Culture Id Panel See PCR Comment (NotDetected); C auris Not Reported Not Detected (NotDetected); CTX-M Resistant Gene Not Detected (NotDetected); Calbicans Not Reported Not Detected (NotDetected); Candida glabrata Not Reported Not Detected (NotDetected); Candida krusei Not Reported Not Detected (NotDetected); Cneoformans/gatti Not Reported Not Detected (NotDetected); Cparapsilosis Not Reported Not Detected (NotDetected); E cloacae compx Not Reported Not Detected (NotDetected); Efaecalis Not Reported Not Detected (NotDetected); Efaecium Not Reported Not Detected (NotDetected); Enterobacterales Not Reported Not Detected (NotDetected); Escherichia coli Not Reported Not Detected (NotDetected); H influenzae Not Reported Not Detected (NotDetected); IMP Resistant Gene Not Detected (NotDetected); K aerogenes Not Reported Not Detected (NotDetected); KPC Resistant Gene Not Detected (NotDetected); Koxytoca Not Reported Not Detected (NotDetected); Kpneumoniae grp Not Reported Not Detected (NotDetected); Lmonocyt Not Reported Not Detected (NotDetected); N meningitidis Not Reported Not Detected (NotDetected); NDM Resistant Gene Not Detected (NotDetected); P aeruginosa Not Reported DETECTED (NotDetected); Proteus spp Not Reported Not Detected (NotDetected); Salmonella spp Not Reported Not Detected (NotDetected); Smarcescens Not Reported Not Detected (NotDetected); Staph lugdunensis Not Reported Not Detected (NotDetected); Staph spp. Not Reported Not Detected (NotDetected); Staphaureus Not Reported Not Detected (NotDetected); Staphepi Not Reported Not Detected (NotDetected); Stenmaltophilia Not Reported Not Detected (NotDetected); Strep agal(GrpB) Not Reported Not Detected (NotDetected); Strep pneum Not Reported Not Detected (NotDetected); Strep pyog (GrpA) Not Reported Not Detected (NotDetected); Strep spp Not Reported Not Detected (NotDetected); VIM Resistant Gene Not Detected (NotDetected)
--- NOTE | 2023-04-28 09:53 | Electrocardiogram Report ---
Test Reason : Blood Pressure : / mmHG Vent. Rate : 160 BPM Atrial Rate : 000 BPM P-R Int : 000 ms QRS Dur : 084 ms QT Int : 270 ms P-R-T Axes : 000 078 067 degrees QTc Int : 440 ms Atrial fibrillation with rapid ventricular response Low voltage QRS Incomplete right bundle branch block Abnormal ECG When compared with ECG of 27-APR-2023 17:12, (unconfirmed) Atrial fibrillation has replaced Sinus rhythm Confirmed by Alfred Pena ([id number]) on 04/28/2023 9:53:09 AM Referred By: REFERRED SELF Confirmed By:Tom Pena
[2023-04-28] MEDS ORDERED: DEXTROSE 50% 50 ML SYRINGE IV PRN (10:06)
[2023-04-28] MEDS ORDERED: CARBOHYDRATES FOR HYPOGLYCEMIA PO PRN (10:06)
[2023-04-28] MEDS ORDERED: GLUCAGON FOR INJ 1 MG VIAL SQ PRN (10:06)
[2023-04-28] MEDS ORDERED: GLUCOSE 10 TAB/TUBE PO PRN (10:06)
[2023-04-28] MEDS ORDERED: GLUCOSE 40% GEL 15 GM TUBE PO PRN (10:06)
[2023-04-28 10:21] LABS: Pseudomonas aeruginosa DETECTED (NotDetected)
--- NOTE | 2023-04-28 10:45 | Hospitalist Progress Note ---
Date of Service April 28, 2023 Assessment & Plan (1) Acute respiratory failure: (2) Severe sepsis: (3) Pneumonia: Plan: Acute b/l PE Afib w/ RVR Multifocal pna Hypoxic resp. failure Bacteremia Patient is 62-year-old male with PMH squamous cell carcinoma of tongue, malnutrition, PEG tube status, right lung cavitary lesion, former tobacco use, former alcohol use presented to ER with complaint cough and increased SOB x 1 week. Also found to have Acute PE. Afib w/ RVR. Intubated on admission, also requiring vasopressor support. Currently in ICU. S/p bronchoscopy today (04/28/2023) Upon arrival to ER Patient noted to be febrile 38.9 C rectal, P: 126, R: 30, BP 118/71, 94% on nonrebreather. WBC: 3.7, H/H: 7.4/22, Plt: 90, BUN: 64, Cr: 1.1 Lactate: 3.7, procalcitonin: 15, troponin: 45 CXR: Interval progression of bilateral airspace opacities suggestive of a pneumonia. Trace right pleural effusion. During ER course patient became more tachycardic, tachypneic and hypotensive In ER was given 2L NSS, cefepime, vancomycin Was placed on bipap CT chest - 1. Bilateral pulmonary embolism 2. Bilateral multifocal pneumonia 3. Cavitary lesion in the right lung apex with dependent nodularity. Aspergilloma cannot be excluded. Discussion with patient at bedside and states would want intubation/ventilation, medications including pressors if needed but would not want chest compressions ICU contacted and provider recommended intubation and ICU admission. Discussed with ER Dr Kenney Pt intubated and requiring vasopressor support, currently in ICU Now s/p bronchoscopy per pulmonary medicine (04/28/2023) - 1. Mucopurulent secretions from the bilateral lower lobes collected via bronchial washing for microbiologic analysis. 2. BAL of the cavitary lesion in the right apex, await microbiologic including AFB and fungal stains and cultures as well as cytology. Acute b/l PE - currently on IV heparin (per ICU team) Afib w/ RVR - IV heparin + amiodarone Multifocal pna, cavitary lesion - underwent bronchoscopy today (04/27) , pulmonary medicine consulted by cigar head pegger - continuing broad spectrum antibiotics per ICU team - vancomycin, cefepime, azithromycin Bacteremia- blood cultx posit. for Pseudomonas - cont. 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 Currently not taking oral secondary to oral mouth pain from radiation. Significant weight loss over past 9 months. PEG tube receiving tube feeds 6 time daily On home Nutren Will need nutrition consult Disposition ICU Conditional code as per discussion with pt, want intubation/ventilation, medications including pressors if needed but would not want chest compressions. Currently pt intubated, requiring vasopressor support. Follows with Dr Aceves for routine care Admission and Anticipated Discharge Date Admission Date: April 27, 2023 Subjective Pt seen in follow up of PE, sepsis, pneumonia, lung cavitary lesion. Blood cultx posit. for pseudomonas. Developed afib w/ RVR - iv heparin + amio. In addition broad spectrum abx Intubated in ED on admission, also requiring vasopressor support, currently in ICU Underwent bronchoscopy today Currently laying in bed in ICU, in NAD, intubated, nods to my voice but does not open eyes, appears comfortable Discussed w/ pt's order editor of Systems Review of Systems: Unobtainable due to endotracheal tube Physical Exam Physical Exam: Gen: cachectic M intubated, sedated, + chronically ill/frail appearing Head: deep temporal wasting and sunken cheeks CV: tachycardic, irreg rhythm Pulm: coarse breath sounds Ext: no edema Neuro: sedated, on vent. nods but does not open eyes to my voice MSK: diffuse muscle wasting, cachectic Results & Data Results & Data Vital Signs (Past 12 Hours) Vital Signs Temp Pulse Resp BP Pulse Ox O2 Del Method O2 Del Method 04/28/23 10:30 37.2 C 101 H 23 92 04/28/23 10:07 37.2 C 115 H 22 92 04/28/23 10:07 110/73 04/28/23 10:00 37.2 C 119 H 23 92 04/28/23 09:30 37.1 C 126 H 22 90 04/28/23 09:15 37.0 C 110 H 17 93 04/28/23 09:10 37.0 C 114 H 23 97 04/28/23 09:05 36.9 C 121 H 22 99 04/28/23 09:00 36.9 C 105 H 18 96 04/28/23 08:52 36.9 C 105 H 22 93 04/28/23 08:00 36.7 C 108 H 23 93 04/28/23 07:52 134/94 04/28/23 07:10 114 H 25 H 93 04/28/23 07:07 116/79 04/28/23 07:00 36.6 C 103 H 22 94 04/28/23 06:07 36.5 C 98 H 22 94 04/28/23 06:07 139/93 04/28/23 06:00 36.5 C 105 H 22 94 04/28/23 05:52 131/94 04/28/23 05:52 36.6 C 107 H 22 94 04/28/23 05:37 137/93 04/28/23 05:37 36.6 C 113 H 22 94 04/28/23 05:30 36.6 C 110 H 22 94 04/28/23 05:22 36.6 C 91 H 22 93 04/28/23 05:22 120/82 04/28/23 05:07 36.6 C 99 H 22 93 04/28/23 05:07 128/80 04/28/23 05:00 36.6 C 96 H 22 93 04/28/23 04:52 36.6 C 93 H 22 93 04/28/23 04:52 118/93 04/28/23 04:37 36.5 C 101 H 22 94 04/28/23 04:37 125/91 04/28/23 04:30 36.5 C 93 H 22 94 04/28/23 04:22 36.5 C 106 H 22 94 04/28/23 04:22 124/97 04/28/23 04:07 36.5 C 106 H 22 94 04/28/23 04:07 129/89 04/28/23 04:00 36.5 C 101 H 22 94 04/28/23 04:00 04/28/23 03:52 36.5 C 111 H 22 95 04/28/23 03:52 126/98 04/28/23 03:40 105 H 22 94 04/28/23 03:37 36.5 C 105 H 21 04/28/23 03:37 148/113 H 04/28/23 03:30 36.4 C L 107 H 22 94 04/28/23 03:22 36.4 C L 117 H 22 94 04/28/23 03:22 122/82 04/28/23 03:07 134/91 04/28/23 03:07 36.4 C L 99 H 22 95 04/28/23 03:00 36.4 C L 104 H 23 94 04/28/23 02:52 36.4 C L 103 H 22 94 04/28/23 02:52 110/84 04/28/23 02:37 105/76 04/28/23 02:37 36.4 C L 90 22 94 04/28/23 02:30 36.3 C L 93 H 22 93 04/28/23 02:22 36.3 C L 105 H 22 93 04/28/23 02:22 108/73 04/28/23 02:07 36.3 C L 104 H 22 93 04/28/23 02:07 104/75 04/28/23 02:00 36.2 C L 102 H 22 93 04/28/23 01:52 36.2 C L 110 H 22 04/28/23 01:52 108/83 04/28/23 01:42 36.2 C L 98 H 22 97/60 L 94 04/28/23 01:37 146/75 H 04/28/23 01:37 36.3 C L 116 H 25 H 89 L 04/28/23 01:30 36.3 C L 103 H 22 93 04/28/23 01:22 123/85 04/28/23 01:22 36.3 C L 102 H 22 94 04/28/23 01:07 113/84 04/28/23 01:07 36.4 C L 111 H 22 93 04/28/23 01:00 36.4 C L 93 H 22 94 04/28/23 00:52 36.4 C L 107 H 22 96 04/28/23 00:52 112/83 04/28/23 00:45 36.4 C L 109 H 22 97 04/28/23 00:42 36.4 C L 96 H 24 104/64 04/28/23 00:37 36.4 C L 95 H 22 97 04/28/23 00:37 111/68 04/28/23 00:30 36.5 C 102 H 22 96 04/28/23 00:22 36.5 C 105 H 22 97 04/28/23 00:22 103/78 04/28/23 00:15 36.5 C 101 H 22 96 04/28/23 00:12 36.5 C 105 H 22 92/57 L 96 04/28/23 00:07 36.5 C 108 H 22 97 04/28/23 00:07 107/76 04/28/23 00:00 36.5 C 105 H 22 97 04/28/23 00:00 04/27/23 23:57 36.5 C 109 H 22 91/57 L 97 04/27/23 23:57 104 H 22 98 04/27/23 23:52 36.5 C 97 H 22 99 04/27/23 23:52 110/83 04/27/23 23:45 36.5 C 105 H 23 99 04/27/23 23:39 36.5 C 101 H 22 91/58 L 99 04/27/23 23:37 36.5 C 112 H 22 99 04/27/23 23:37 109/82 04/27/23 23:30 36.5 C 112 H 22 99 04/27/23 23:15 36.5 C 112 H 22 99 04/27/23 23:11 04/27/23 23:10 Mechanical Vent 04/27/23 23:07 102/74 04/27/23 23:07 36.5 C 118 H 22 99 04/27/23 23:00 36.5 C 107 H 22 99 04/27/23 22:53 Mechanical Vent 04/27/23 22:52 36.5 C 113 H 22 99 04/27/23 22:52 111/76 04/27/23 22:45 36.5 C 106 H 22 99 FiO2 04/28/23 10:30 04/28/23 10:07 04/28/23 10:07 04/28/23 10:00 04/28/23 09:30 04/28/23 09:15 04/28/23 09:10 04/28/23 09:05 04/28/23 09:00 04/28/23 08:52 04/28/23 08:00 04/28/23 07:52 04/28/23 07:10 40 04/28/23 07:07 04/28/23 07:00 04/28/23 06:07 04/28/23 06:07 04/28/23 06:00 04/28/23 05:52 04/28/23 05:52 04/28/23 05:37 04/28/23 05:37 04/28/23 05:30 04/28/23 05:22 04/28/23 05:22 04/28/23 05:07 04/28/23 05:07 04/28/23 05:00 04/28/23 04:52 04/28/23 04:52 04/28/23 04:37 04/28/23 04:37 04/28/23 04:30 04/28/23 04:22 04/28/23 04:22 04/28/23 04:07 04/28/23 04:07 04/28/23 04:00 04/28/23 04:00 40 04/28/23 03:52 04/28/23 03:52 04/28/23 03:40 40 04/28/23 03:37 04/28/23 03:37 04/28/23 03:30 04/28/23 03:22 04/28/23 03:22 04/28/23 03:07 04/28/23 03:07 04/28/23 03:00 04/28/23 02:52 04/28/23 02:52 04/28/23 02:37 04/28/23 02:37 04/28/23 02:30 04/28/23 02:22 04/28/23 02:22 04/28/23 02:07 04/28/23 02:07 04/28/23 02:00 04/28/23 01:52 04/28/23 01:52 04/28/23 01:42 04/28/23 01:37 04/28/23 01:37 04/28/23 01:30 04/28/23 01:22 04/28/23 01:22 04/28/23 01:07 04/28/23 01:07 04/28/23 01:00 04/28/23 00:52 04/28/23 00:52 04/28/23 00:45 04/28/23 00:42 04/28/23 00:37 04/28/23 00:37 04/28/23 00:30 04/28/23 00:22 04/28/23 00:22 04/28/23 00:15 04/28/23 00:12 04/28/23 00:07 04/28/23 00:07 04/28/23 00:00 04/28/23 00:00 70 04/27/23 23:57 04/27/23 23:57 70 04/27/23 23:52 04/27/23 23:52 04/27/23 23:45 04/27/23 23:39 04/27/23 23:37 04/27/23 23:37 04/27/23 23:30 04/27/23 23:15 04/27/23 23:11 70 04/27/23 23:10 04/27/23 23:07 04/27/23 23:07 04/27/23 23:00 04/27/23 22:53 70 04/27/23 22:52 04/27/23 22:52 04/27/23 22:45 Laboratory Results 04/28/23 04/28/23 04/28/23 Range/Units 09:51 09:43 09:05 WBC (4.8-10.8) K/ul RBC (4.70-6.10) M/uL Hgb (14.0-18.0) g/dl POC Hgb (14.0-18.0) g/dl Hct (42.0-52.0) % POC Hct (42-52) % MCV (80.0-100.0) fL MCH (25.0-34.0) pg MCHC (32.0-36.0) g/dL RDW Std Deviation (36.4-46.3) fL RDW Coeff of Suraj (11.5-14.5) % Plt Count (130-400) K/uL MPV (9.4-12.4) fL Immature Gran % (Auto) % Neut % (Auto) % Lymph % (Auto) % [place] % (Auto) % Eos % (Auto) % Baso % (Auto) % Neut # (Auto) (1.40-6.50) K/uL Lymph # (Auto) (1.20-3.40) K/uL [place] # (Auto) (0.11-0.59) K/uL Eos # (Auto) (0.00-0.50) K/uL Baso # (Auto) (0.00-0.20) K/uL Immature Gran # (Auto) (0.01-0.20) K/uL Absolute Nucleated RBC (0.00-0.12) K/uL Nucleated RBC % (auto) % Toxic Granulation Toxic Vacuolation Anisocytosis PT (9.0-12.0) Seconds INR (0.9-1.1) APTT (21-31) Seconds PTT Ratio Heparin Anti-Xa, Unfract (0.3-0.7) IU/ml Sample Site POC pH (7.35-7.45) POC pCO2 (35-46) mmHg POC pO2 (80-95) mmHg POC HCO3 (19-24) dimitri/L POC Total CO2 (24-31) mmol/L POC Base Excess (-9-1.8) dimitri/L ABG pH (Temp Correct) (7.35-7.45) ABG pCO2 (Temp Corrct (35-46) mmHg POC ABG pO2 at Pt Temp POC ABG O2 Sat (90-95) % Jeremy Test O2 Delivery Device POC O2 Rate POC FiO2 % Tidal Volume PEEP POC Sodium (135-144) mmol/L Sodium (136-145) mmol/L POC Potassium (3.3-5.0) mmol/L Potassium (3.5-5.1) mmol/L Chloride (98-107) mmol/L Carbon Dioxide (21-32) mmol/L Anion Gap (3-11) BUN (6-23) mg/dl Creatinine (0.6-1.4) mg/dl Est Cr Clr Drug Dosing ml/min Est GFR ( Amer) ml/min Est GFR (Non-Af Amer) ml/min BUN/Creatinine Ratio (10-20) Glucose (70-99(Fasting)) mg/dl POC Glucose 196 H (70-99) mg/dl Lactate 3.6 H* (0.4-2.0) mmol/L Calcium (8.6-10.3) mg/dl Phosphorus (2.5-4.9) mg/dl Magnesium (1.7-2.4) mg/dl Total Bilirubin (0.2-1.0) mg/dl Direct Bilirubin (0-0.2) mg/dl AST (13-39) U/L ALT (7-52) U/L Alkaline Phosphatase (34-104) U/L Troponin I High Sens (0-20) pg/ml Total Protein (6.0-8.3) gm/dl Albumin (3.4-5.0) gm/dl Globulin (2.5-4.0) gm/dl Albumin/Globulin Ratio (0.9-2) Procalcitonin (0-0.5) ng/ml Random Cortisol mcg/dl Urine Color Urine Appearance (Clear) Urine pH (4.5-7.5) Ur Specific [place] (1.000-1.030) Urine Protein (Negative) Urine Glucose (UA) (Negative) Urine Ketones (Negative) Urine Blood (Negative) Urine Nitrite (Negative) Urine Bilirubin (Negative) Urine Urobilinogen (Negative) Ur Leukocyte Esterase (Negative) Urine WBC (Auto) (0-5) /hpf Urine RBC (Auto) (0-4) /hpf U Hyaline Cast (Auto) (0-5) /lpf U Epithel Cells (Auto) (0-5) /lpf Urine Bacteria (Auto) (Negative) Urine Yeast Fluid Neutrophils % Pending Fluid Lymphocytes % Pending Fluid Comment Nasal Screen MRSA (PCR) (Negative) Adenovirus (PCR) (NotDetected) B. pertussis DNA (PCR) (NotDetected) B.parapertussis DNA PCR (NotDetected) C. pneumoniae DNA (PCR) (NotDetected) Coronavirus OC43 (PCR) (NotDetected) Coronavirus HKU1 (PCR) (NotDetected) Coronavirus 229E (PCR) (NotDetected) SARS-CoV-2 (PCR) (NotDetected) Coronavirus NL63 (PCR) (NotDetected) Human Metapneumovir PCR (NotDetected) Influenza Type A (PCR) (NotDetected) Influenza Type B (PCR) (NotDetected) Urine Legionella Ag M. pneumoniae (PCR) (NotDetected) Parainfluenza 1 (PCR) (NotDetected) Parainfluenza 2 (PCR) (NotDetected) Parainfluenza 3 (PCR) (NotDetected) Parainfluenza 4 (PCR) (NotDetected) A. galactomannan Ag A. galactomannan Ag Idx RSV (PCR) (NotDetected) Entero/Rhino (PCR) (NotDetected) P. aeruginosa (PCR) (NotDetected) blaIMP Car res Gene PCR (NotDetected) KPC-Carbap Res Gene PCR (NotDetected) blaNDM Car Res Gene PCR (NotDetected) blaVIM Car Res Gene PCR (NotDetected) CTX-M Gene Resistance (PCR) (NotDetected) Bld Cult ID Panel PCR (NotDetected) Blood Type Blood Type Recheck Antibody Screen Crossmatch 04/28/23 04/28/23 04/27/23 Range/Units 06:38 04:20 22:25 WBC 3.10 L (4.8-10.8) K/ul RBC 2.62 L (4.70-6.10) M/uL Hgb 8.1 L (14.0-18.0) g/dl POC Hgb (14.0-18.0) g/dl Hct 24.8 L (42.0-52.0) % POC Hct (42-52) % MCV 94.7 (80.0-100.0) fL MCH 30.9 (25.0-34.0) pg MCHC 32.7 (32.0-36.0) g/dL RDW Std Deviation 67.8 H (36.4-46.3) fL RDW Coeff of Suraj 20.4 H (11.5-14.5) % Plt Count 65 L (130-400) K/uL MPV 11.1 (9.4-12.4) fL Immature Gran % (Auto) 0.3 % Neut % (Auto) 91.0 % Lymph % (Auto) 4.8 % [place] % (Auto) 2.6 % Eos % (Auto) 0.0 % Baso % (Auto) 1.3 % Neut # (Auto) 2.82 (1.40-6.50) K/uL Lymph # (Auto) 0.15 L (1.20-3.40) K/uL [place] # (Auto) 0.08 L (0.11-0.59) K/uL Eos # (Auto) 0.00 (0.00-0.50) K/uL Baso # (Auto) 0.04 (0.00-0.20) K/uL Immature Gran # (Auto) 0.01 (0.01-0.20) K/uL Absolute Nucleated RBC 0.04 (0.00-0.12) K/uL Nucleated RBC % (auto) 1.3 % Toxic Granulation 2+ Toxic Vacuolation 1+ Anisocytosis Present PT (9.0-12.0) Seconds INR (0.9-1.1) APTT (21-31) Seconds PTT Ratio Heparin Anti-Xa, Unfract < 0.10 L (0.3-0.7) IU/ml Sample Site POC pH (7.35-7.45) POC pCO2 (35-46) mmHg POC pO2 (80-95) mmHg POC HCO3 (19-24) dimitri/L POC Total CO2 (24-31) mmol/L POC Base Excess (-9-1.8) dimitri/L ABG pH (Temp Correct) (7.35-7.45) ABG pCO2 (Temp Corrct (35-46) mmHg POC ABG pO2 at Pt Temp POC ABG O2 Sat (90-95) % Jeremy Test O2 Delivery Device POC O2 Rate POC FiO2 % Tidal Volume PEEP POC Sodium (135-144) mmol/L Sodium 135 L (136-145) mmol/L POC Potassium (3.3-5.0) mmol/L Potassium 3.9 (3.5-5.1) mmol/L Chloride 102 (98-107) mmol/L Carbon Dioxide 24 (21-32) mmol/L Anion Gap 9 (3-11) BUN 61 H (6-23) mg/dl Creatinine 0.99 (0.6-1.4) mg/dl Est Cr Clr Drug Dosing 54.8 ml/min Est GFR ( Amer) 93.6 ml/min Est GFR (Non-Af Amer) 80.7 ml/min BUN/Creatinine Ratio 61.6 H (10-20) Glucose 258 H (70-99(Fasting)) mg/dl POC Glucose (70-99) mg/dl Lactate (0.4-2.0) mmol/L Calcium 7.6 L (8.6-10.3) mg/dl Phosphorus 4.1 (2.5-4.9) mg/dl Magnesium 2.1 (1.7-2.4) mg/dl Total Bilirubin 1.7 H (0.2-1.0) mg/dl Direct Bilirubin (0-0.2) mg/dl AST 82 H (13-39) U/L ALT 63 H (7-52) U/L Alkaline Phosphatase 73 (34-104) U/L Troponin I High Sens (0-20) pg/ml Total Protein 5.6 L (6.0-8.3) gm/dl Albumin 2.0 L (3.4-5.0) gm/dl Globulin 3.6 (2.5-4.0) gm/dl Albumin/Globulin Ratio 0.6 L (0.9-2) Procalcitonin (0-0.5) ng/ml Random Cortisol mcg/dl Urine Color Urine Appearance (Clear) Urine pH (4.5-7.5) Ur Specific [place] (1.000-1.030) Urine Protein (Negative) Urine Glucose (UA) (Negative) Urine Ketones (Negative) Urine Blood (Negative) Urine Nitrite (Negative) Urine Bilirubin (Negative) Urine Urobilinogen (Negative) Ur Leukocyte Esterase (Negative) Urine WBC (Auto) (0-5) /hpf Urine RBC (Auto) (0-4) /hpf U Hyaline Cast (Auto) (0-5) /lpf U Epithel Cells (Auto) (0-5) /lpf Urine Bacteria (Auto) (Negative) Urine Yeast Fluid Neutrophils % Fluid Lymphocytes % Fluid Comment Nasal Screen MRSA (PCR) Negative (Negative) Adenovirus (PCR) (NotDetected) B. pertussis DNA (PCR) (NotDetected) B.parapertussis DNA PCR (NotDetected) C. pneumoniae DNA (PCR) (NotDetected) Coronavirus OC43 (PCR) (NotDetected) Coronavirus HKU1 (PCR) (NotDetected) Coronavirus 229E (PCR) (NotDetected) SARS-CoV-2 (PCR) (NotDetected) Coronavirus NL63 (PCR) (NotDetected) Human Metapneumovir PCR (NotDetected) Influenza Type A (PCR) (NotDetected) Influenza Type B (PCR) (NotDetected) Urine Legionella Ag M. pneumoniae (PCR) (NotDetected) Parainfluenza 1 (PCR) (NotDetected) Parainfluenza 2 (PCR) (NotDetected) Parainfluenza 3 (PCR) (NotDetected) Parainfluenza 4 (PCR) (NotDetected) A. galactomannan Ag A. galactomannan Ag Idx RSV (PCR) (NotDetected) Entero/Rhino (PCR) (NotDetected) P. aeruginosa (PCR) (NotDetected) blaIMP Car res Gene PCR (NotDetected) KPC-Carbap Res Gene PCR (NotDetected) blaNDM Car Res Gene PCR (NotDetected) blaVIM Car Res Gene PCR (NotDetected) CTX-M Gene Resistance (PCR) (NotDetected) Bld Cult ID Panel PCR (NotDetected) Blood Type Blood Type Recheck Antibody Screen Crossmatch 04/27/23 04/27/23 04/27/23 Range/Units 22:23 21:49 20:52 WBC (4.8-10.8) K/ul RBC (4.70-6.10) M/uL Hgb (14.0-18.0) g/dl POC Hgb (14.0-18.0) g/dl Hct (42.0-52.0) % POC Hct (42-52) % MCV (80.0-100.0) fL MCH (25.0-34.0) pg MCHC (32.0-36.0) g/dL RDW Std Deviation (36.4-46.3) fL RDW Coeff of Suraj (11.5-14.5) % Plt Count (130-400) K/uL MPV (9.4-12.4) fL Immature Gran % (Auto) % Neut % (Auto) % Lymph % (Auto) % [place] % (Auto) % Eos % (Auto) % Baso % (Auto) % Neut # (Auto) (1.40-6.50) K/uL Lymph # (Auto) (1.20-3.40) K/uL [place] # (Auto) (0.11-0.59) K/uL Eos # (Auto) (0.00-0.50) K/uL Baso # (Auto) (0.00-0.20) K/uL Immature Gran # (Auto) (0.01-0.20) K/uL Absolute Nucleated RBC (0.00-0.12) K/uL Nucleated RBC % (auto) % Toxic Granulation Toxic Vacuolation Anisocytosis PT 14.3 H (9.0-12.0) Seconds INR 1.3 H (0.9-1.1) APTT 35 H (21-31) Seconds PTT Ratio 1.2 Heparin Anti-Xa, Unfract (0.3-0.7) IU/ml Sample Site POC pH (7.35-7.45) POC pCO2 (35-46) mmHg POC pO2 (80-95) mmHg POC HCO3 (19-24) dimitri/L POC Total CO2 (24-31) mmol/L POC Base Excess (-9-1.8) dimitri/L ABG pH (Temp Correct) (7.35-7.45) ABG pCO2 (Temp Corrct (35-46) mmHg POC ABG pO2 at Pt Temp POC ABG O2 Sat (90-95) % Jeremy Test O2 Delivery Device POC O2 Rate POC FiO2 % Tidal Volume PEEP POC Sodium (135-144) mmol/L Sodium 138 (136-145) mmol/L POC Potassium (3.3-5.0) mmol/L Potassium 3.8 (3.5-5.1) mmol/L Chloride 104 (98-107) mmol/L Carbon Dioxide 26 (21-32) mmol/L Anion Gap 8 (3-11) BUN 67 H (6-23) mg/dl Creatinine 1.12 (0.6-1.4) mg/dl Est Cr Clr Drug Dosing 54.2 ml/min Est GFR ( Amer) 80.6 ml/min Est GFR (Non-Af Amer) 69.5 ml/min BUN/Creatinine Ratio 59.8 H (10-20) Glucose 155 H (70-99(Fasting)) mg/dl POC Glucose (70-99) mg/dl Lactate (0.4-2.0) mmol/L Calcium 7.3 L (8.6-10.3) mg/dl Phosphorus (2.5-4.9) mg/dl Magnesium 2.0 (1.7-2.4) mg/dl Total Bilirubin (0.2-1.0) mg/dl Direct Bilirubin (0-0.2) mg/dl AST (13-39) U/L ALT (7-52) U/L Alkaline Phosphatase (34-104) U/L Troponin I High Sens (0-20) pg/ml Total Protein (6.0-8.3) gm/dl Albumin (3.4-5.0) gm/dl Globulin (2.5-4.0) gm/dl Albumin/Globulin Ratio (0.9-2) Procalcitonin (0-0.5) ng/ml Random Cortisol > 60.00 mcg/dl Urine Color Dark Yellow Urine Appearance Cloudy A (Clear) Urine pH 5.0 (4.5-7.5) Ur Specific [place] 1.032 H (1.000-1.030) Urine Protein 1+ H (Negative) Urine Glucose (UA) Negative (Negative) Urine Ketones Negative (Negative) Urine Blood Negative (Negative) Urine Nitrite Negative (Negative) Urine Bilirubin Negative (Negative) Urine Urobilinogen Positive H (Negative) Ur Leukocyte Esterase Negative (Negative) Urine WBC (Auto) 5-10 H (0-5) /hpf Urine RBC (Auto) 0-4 (0-4) /hpf U Hyaline Cast (Auto) 5-10 H (0-5) /lpf U Epithel Cells (Auto) >30 H (0-5) /lpf Urine Bacteria (Auto) 1+ H (Negative) Urine Yeast Not Reportable Fluid Neutrophils % Fluid Lymphocytes % Fluid Comment Nasal Screen MRSA (PCR) (Negative) Adenovirus (PCR) (NotDetected) B. pertussis DNA (PCR) (NotDetected) B.parapertussis DNA PCR (NotDetected) C. pneumoniae DNA (PCR) (NotDetected) Coronavirus OC43 (PCR) (NotDetected) Coronavirus HKU1 (PCR) (NotDetected) Coronavirus 229E (PCR) (NotDetected) SARS-CoV-2 (PCR) (NotDetected) Coronavirus NL63 (PCR) (NotDetected) Human Metapneumovir PCR (NotDetected) Influenza Type A (PCR) (NotDetected) Influenza Type B (PCR) (NotDetected) Urine Legionella Ag Pending M. pneumoniae (PCR) (NotDetected) Parainfluenza 1 (PCR) (NotDetected) Parainfluenza 2 (PCR) (NotDetected) Parainfluenza 3 (PCR) (NotDetected) Parainfluenza 4 (PCR) (NotDetected) A. galactomannan Ag A. galactomannan Ag Idx RSV (PCR) (NotDetected) Entero/Rhino (PCR) (NotDetected) P. aeruginosa (PCR) (NotDetected) blaIMP Car res Gene PCR (NotDetected) KPC-Carbap Res Gene PCR (NotDetected) blaNDM Car Res Gene PCR (NotDetected) blaVIM Car Res Gene PCR (NotDetected) CTX-M Gene Resistance (PCR) (NotDetected) Bld Cult ID Panel PCR (NotDetected) Blood Type B Negative Blood Type Recheck B Negative Antibody Screen NEGATIVE Crossmatch See Detail 04/27/23 04/27/23 04/27/23 Range/Units 20:23 19:26 17:10 WBC (4.8-10.8) K/ul RBC (4.70-6.10) M/uL Hgb (14.0-18.0) g/dl POC Hgb 5.8 L* (14.0-18.0) g/dl Hct (42.0-52.0) % POC Hct 17 L* (42-52) % MCV (80.0-100.0) fL MCH (25.0-34.0) pg MCHC (32.0-36.0) g/dL RDW Std Deviation (36.4-46.3) fL RDW Coeff of Suraj (11.5-14.5) % Plt Count (130-400) K/uL MPV (9.4-12.4) fL Immature Gran % (Auto) % Neut % (Auto) % Lymph % (Auto) % [place] % (Auto) % Eos % (Auto) % Baso % (Auto) % Neut # (Auto) (1.40-6.50) K/uL Lymph # (Auto) (1.20-3.40) K/uL [place] # (Auto) (0.11-0.59) K/uL Eos # (Auto) (0.00-0.50) K/uL Baso # (Auto) (0.00-0.20) K/uL Immature Gran # (Auto) (0.01-0.20) K/uL Absolute Nucleated RBC (0.00-0.12) K/uL Nucleated RBC % (auto) % Toxic Granulation Toxic Vacuolation Anisocytosis PT (9.0-12.0) Seconds INR (0.9-1.1) APTT (21-31) Seconds PTT Ratio Heparin Anti-Xa, Unfract (0.3-0.7) IU/ml Sample Site Art Line POC pH 7.41 (7.35-7.45) POC pCO2 40 (35-46) mmHg POC pO2 102 H (80-95) mmHg POC HCO3 25 H (19-24) dimitri/L POC Total CO2 27 (24-31) mmol/L POC Base Excess 1.0 (-9-1.8) dimitri/L ABG pH (Temp Correct) 7.405 (7.35-7.45) ABG pCO2 (Temp Corrct 40 (35-46) mmHg POC ABG pO2 at Pt Temp 102 POC ABG O2 Sat 98.0 H (90-95) % Jeremy Test NA O2 Delivery Device Ventilator POC O2 Rate 22 POC FiO2 70 % Tidal Volume 450 PEEP 5 POC Sodium 140 (135-144) mmol/L Sodium (136-145) mmol/L POC Potassium 3.8 (3.3-5.0) mmol/L Potassium (3.5-5.1) mmol/L Chloride (98-107) mmol/L Carbon Dioxide (21-32) mmol/L Anion Gap (3-11) BUN (6-23) mg/dl Creatinine (0.6-1.4) mg/dl Est Cr Clr Drug Dosing ml/min Est GFR ( Amer) ml/min Est GFR (Non-Af Amer) ml/min BUN/Creatinine Ratio (10-20) Glucose (70-99(Fasting)) mg/dl POC Glucose (70-99) mg/dl Lactate 2.7 H* (0.4-2.0) mmol/L Calcium (8.6-10.3) mg/dl Phosphorus (2.5-4.9) mg/dl Magnesium (1.7-2.4) mg/dl Total Bilirubin (0.2-1.0) mg/dl Direct Bilirubin (0-0.2) mg/dl AST (13-39) U/L ALT (7-52) U/L Alkaline Phosphatase (34-104) U/L Troponin I High Sens 40.0 H (0-20) pg/ml Total Protein (6.0-8.3) gm/dl Albumin (3.4-5.0) gm/dl Globulin (2.5-4.0) gm/dl Albumin/Globulin Ratio (0.9-2) Procalcitonin (0-0.5) ng/ml Random Cortisol mcg/dl Urine Color Urine Appearance (Clear) Urine pH (4.5-7.5) Ur Specific [place] (1.000-1.030) Urine Protein (Negative) Urine Glucose (UA) (Negative) Urine Ketones (Negative) Urine Blood (Negative) Urine Nitrite (Negative) Urine Bilirubin (Negative) Urine Urobilinogen (Negative) Ur Leukocyte Esterase (Negative) Urine WBC (Auto) (0-5) /hpf Urine RBC (Auto) (0-4) /hpf U Hyaline Cast (Auto) (0-5) /lpf U Epithel Cells (Auto) (0-5) /lpf Urine Bacteria (Auto) (Negative) Urine Yeast Fluid Neutrophils % Fluid Lymphocytes % Fluid Comment Nasal Screen MRSA (PCR) (Negative) Adenovirus (PCR) Not Detected (NotDetected) B. pertussis DNA (PCR) Not Detected (NotDetected) B.parapertussis DNA PCR Not Detected (NotDetected) C. pneumoniae DNA (PCR) Not Detected (NotDetected) Coronavirus OC43 (PCR) Not Detected (NotDetected) Coronavirus HKU1 (PCR) Not Detected (NotDetected) Coronavirus 229E (PCR) Not Detected (NotDetected) SARS-CoV-2 (PCR) Not Detected (NotDetected) Coronavirus NL63 (PCR) Not Detected (NotDetected) Human Metapneumovir PCR Not Detected (NotDetected) Influenza Type A (PCR) Not Detected (NotDetected) Influenza Type B (PCR) Not Detected (NotDetected) Urine Legionella Ag M. pneumoniae (PCR) Not Detected (NotDetected) Parainfluenza 1 (PCR) Not Detected (NotDetected) Parainfluenza 2 (PCR) Not Detected (NotDetected) Parainfluenza 3 (PCR) Not Detected (NotDetected) Parainfluenza 4 (PCR) Not Detected (NotDetected) A. galactomannan Ag A. galactomannan Ag Idx RSV (PCR) Not Detected (NotDetected) Entero/Rhino (PCR) Not Detected (NotDetected) P. aeruginosa (PCR) (NotDetected) blaIMP Car res Gene PCR (NotDetected) KPC-Carbap Res Gene PCR (NotDetected) blaNDM Car Res Gene PCR (NotDetected) blaVIM Car Res Gene PCR (NotDetected) CTX-M Gene Resistance (PCR) (NotDetected) Bld Cult ID Panel PCR (NotDetected) Blood Type Blood Type Recheck Antibody Screen Crossmatch 04/27/23 Range/Units 17:05 WBC 3.74 L (4.8-10.8) K/ul RBC 2.30 L (4.70-6.10) M/uL Hgb 7.4 L (14.0-18.0) g/dl POC Hgb (14.0-18.0) g/dl Hct 22.6 L (42.0-52.0) % POC Hct (42-52) % MCV 98.3 (80.0-100.0) fL MCH 32.2 (25.0-34.0) pg MCHC 32.7 (32.0-36.0) g/dL RDW Std Deviation 70.0 H (36.4-46.3) fL RDW Coeff of Suraj 20.0 H (11.5-14.5) % Plt Count 90 L (130-400) K/uL MPV 11.1 (9.4-12.4) fL Immature Gran % (Auto) 0.3 % Neut % (Auto) 94.4 % Lymph % (Auto) 2.4 % [place] % (Auto) 2.1 % Eos % (Auto) 0.0 % Baso % (Auto) 0.8 % Neut # (Auto) 3.53 (1.40-6.50) K/uL Lymph # (Auto) 0.09 L (1.20-3.40) K/uL [place] # (Auto) 0.08 L (0.11-0.59) K/uL Eos # (Auto) 0.00 (0.00-0.50) K/uL Baso # (Auto) 0.03 (0.00-0.20) K/uL Immature Gran # (Auto) 0.01 (0.01-0.20) K/uL Absolute Nucleated RBC 0.03 (0.00-0.12) K/uL Nucleated RBC % (auto) 0.8 % Toxic Granulation Toxic Vacuolation Anisocytosis PT (9.0-12.0) Seconds INR (0.9-1.1) APTT (21-31) Seconds PTT Ratio Heparin Anti-Xa, Unfract (0.3-0.7) IU/ml Sample Site POC pH (7.35-7.45) POC pCO2 (35-46) mmHg POC pO2 (80-95) mmHg POC HCO3 (19-24) dimitri/L POC Total CO2 (24-31) mmol/L POC Base Excess (-9-1.8) dimitri/L ABG pH (Temp Correct) (7.35-7.45) ABG pCO2 (Temp Corrct (35-46) mmHg POC ABG pO2 at Pt Temp POC ABG O2 Sat (90-95) % Jeremy Test O2 Delivery Device POC O2 Rate POC FiO2 % Tidal Volume PEEP POC Sodium (135-144) mmol/L Sodium 141 (136-145) mmol/L POC Potassium (3.3-5.0) mmol/L Potassium 4.0 (3.5-5.1) mmol/L Chloride 100 (98-107) mmol/L Carbon Dioxide 30 (21-32) mmol/L Anion Gap 11 (3-11) BUN 64 H (6-23) mg/dl Creatinine 1.10 (0.6-1.4) mg/dl Est Cr Clr Drug Dosing 55.2 ml/min Est GFR ( Amer) 82.4 ml/min Est GFR (Non-Af Amer) 71.1 ml/min BUN/Creatinine Ratio 58.2 H (10-20) Glucose 128 H (70-99(Fasting)) mg/dl POC Glucose (70-99) mg/dl Lactate 3.7 H* (0.4-2.0) mmol/L Calcium 8.3 L (8.6-10.3) mg/dl Phosphorus (2.5-4.9) mg/dl Magnesium 2.3 (1.7-2.4) mg/dl Total Bilirubin 1.2 H (0.2-1.0) mg/dl Direct Bilirubin 0.7 H (0-0.2) mg/dl AST 65 H (13-39) U/L ALT 50 (7-52) U/L Alkaline Phosphatase 84 (34-104) U/L Troponin I High Sens 45.0 H (0-20) pg/ml Total Protein 6.2 (6.0-8.3) gm/dl Albumin 2.3 L (3.4-5.0) gm/dl Globulin (2.5-4.0) gm/dl Albumin/Globulin Ratio (0.9-2) Procalcitonin 15.60 H (0-0.5) ng/ml Random Cortisol mcg/dl Urine Color Urine Appearance (Clear) Urine pH (4.5-7.5) Ur Specific [place] (1.000-1.030) Urine Protein (Negative) Urine Glucose (UA) (Negative) Urine Ketones (Negative) Urine Blood (Negative) Urine Nitrite (Negative) Urine Bilirubin (Negative) Urine Urobilinogen (Negative) Ur Leukocyte Esterase (Negative) Urine WBC (Auto) (0-5) /hpf Urine RBC (Auto) (0-4) /hpf U Hyaline Cast (Auto) (0-5) /lpf U Epithel Cells (Auto) (0-5) /lpf Urine Bacteria (Auto) (Negative) Urine Yeast Fluid Neutrophils % Fluid Lymphocytes % Fluid Comment Nasal Screen MRSA (PCR) (Negative) Adenovirus (PCR) (NotDetected) B. pertussis DNA (PCR) (NotDetected) B.parapertussis DNA PCR (NotDetected) C. pneumoniae DNA (PCR) (NotDetected) Coronavirus OC43 (PCR) (NotDetected) Coronavirus HKU1 (PCR) (NotDetected) Coronavirus 229E (PCR) (NotDetected) SARS-CoV-2 (PCR) (NotDetected) Coronavirus NL63 (PCR) (NotDetected) Human Metapneumovir PCR (NotDetected) Influenza Type A (PCR) (NotDetected) Influenza Type B (PCR) (NotDetected) Urine Legionella Ag M. pneumoniae (PCR) (NotDetected) Parainfluenza 1 (PCR) (NotDetected) Parainfluenza 2 (PCR) (NotDetected) Parainfluenza 3 (PCR) (NotDetected) Parainfluenza 4 (PCR) (NotDetected) A. galactomannan Ag Pending A. galactomannan Ag Idx Pending RSV (PCR) (NotDetected) Entero/Rhino (PCR) (NotDetected) P. aeruginosa (PCR) DETECTED A (NotDetected) blaIMP Car res Gene PCR Not Detected (NotDetected) KPC-Carbap Res Gene PCR Not Detected (NotDetected) blaNDM Car Res Gene PCR Not Detected (NotDetected) blaVIM Car Res Gene PCR Not Detected (NotDetected) CTX-M Gene Resistance (PCR) Not Detected (NotDetected) Bld Cult ID Panel PCR See PCR Comment (NotDetected) Blood Type Blood Type Recheck Antibody Screen Crossmatch Medications Administered Current Inpatient Medications Albuterol (Albuterol Hfa 8 Gm Inhaler) 2 puffs INH Q6H PRN PRN Reason: Shortness Of Breath/COUGH/WHEE Stop: 05/27/23 22:37 Dextrose (Dextrose 50% 50 Ml Syringe) 25 - 50 ml IV UD PRN; Protocol PRN Reason: Hypoglycemia Protocol Stop: 05/28/23 10:05 Fentanyl Citrate (Fentanyl Citrate Pf 100 Mcg/2 Ml Vial) 50 mcg IV Q2H PRN PRN Reason: Moderate Pain (4,5,6) on NRS Stop: 05/11/23 20:51 Last Admin: 04/27/23 21:55 Dose: 50 mcg Fentanyl Citrate (Fentanyl Bolus From Bag) 50 mcg IV Q60M PRN PRN Reason: Pain or Agitation Stop: 05/11/23 22:07 Glucagon (Glucagon For Inj 1 Mg Vial) 1 mg SQ UD PRN; Protocol PRN Reason: Hypoglycemia Protocol Stop: 05/28/23 10:05 Glucose (Glucose 40% Gel 15 Gm Tube) 15 - 30 gm PO UD PRN; Protocol PRN Reason: Hypoglycemia Protocol Stop: 05/28/23 10:05 Glucose (Glucose 10 Tab/Tube) 4 - 8 tab PO UD PRN; Protocol PRN Reason: Hypoglycemia Treatment Stop: 05/28/23 10:05 Norepinephrine Bitartrate (Levophed/D5w) 4 mg in 250 mls @ 63.9 mls/hr IV .Q3H55M XI; Protocol Stop: 05/27/23 19:44 Last Admin: 04/28/23 10:26 Dose: Not Given Amiodarone HCl/Dextrose (Nexterone / D5w) 360 mg in 200 mls @ 16.667 mls/hr IV .Q12H [facility] Stop: 05/28/23 03:09 Last Admin: 04/28/23 02:04 Dose: 0.5 mg/min, 16.7 mls/hr Vasopressin 20 units/ Sodium (Chloride) 101 mls @ 12.12 mls/hr IV .Q8H20M [facility] Stop: 05/27/23 21:29 Last Admin: 04/28/23 05:26 Dose: 0.04 unit/min, 12.1 mls/hr Vancomycin HCl 750 mg/ Sodium (Chloride) 265 mls @ 200 mls/hr IV Q12H [facility] Stop: 04/30/23 05:59 Last Infusion: 04/28/23 07:38 Dose: Infused Cefepime HCl 2,000 mg/ Syringe 20 mls @ 5 mls/min IV Q12H [facility] Stop: 05/04/23 16:59 Last Admin: 04/28/23 05:27 Dose: 5 mls/min Azithromycin 500 mg/ Dextrose 255 mls @ 125 mls/hr IV Q24H [facility] Stop: 05/05/23 20:59 Fentanyl Citrate (Fentanyl Citrate) 2,500 mcg in 250 mls @ 12.5 mls/hr IV .Q20H XI; Protocol Stop: 05/11/23 22:14 Last Titration: 04/27/23 23:31 Dose: 125 mcg/hr, 12.5 mls/hr Heparin Sodium/Dextrose (Heparin Sodium/Dextrose) 25,000 units in 500 mls @ 18 mls/hr IV .Q24H [facility]; Protocol Stop: 05/27/23 23:44 Last Admin: 04/28/23 00:38 Dose: 900 units/hr, 18 mls/hr Insulin Aspart (Insulin Aspart Per Unit Charge) 0 units SC Q6 XI Stop: 05/28/23 11:59 Miscellaneous (Icu Protocol For Hyperglycemia) 1 each N/A ACHS [facility] Stop: 04/29/23 20:59 Last Admin: 04/28/23 10:26 Dose: Not Given Miscellaneous (Carbohydrates For Hypoglycemia ) 15 - 30 gm PO UD PRN PRN Reason: Hypoglycemia Protocol Stop: 05/28/23 10:05 Miscellaneous Information (Vancomycin Consult Active) 1 each N/A UD PRN PRN Reason: Consult Stop: 05/27/23 18:08 Multi-Ingredient Mouthwash/Gargle (First - Mouthwash Blm 119 Ml) 10 ml PO ACHS PRN PRN Reason: mouth pain Stop: 05/27/23 22:48
[2023-04-28] MEDS: INSULIN ASPART PER UNIT CHARGE SC SCH (11:25)
[2023-04-28 11:52] LABS: iSTAT Art Bld Gas pCO2 Correct 44 mmHg (35-46); iSTAT Art Bld Gas pH Corrected 7.364 (7.35-7.45); iSTAT Arterial Blood Gas HCO3 25 meg/L (19-24); iSTAT Arterial Blood Gas pCO2 44 mmHg (35-46); iSTAT Arterial Blood Gas pH 7.37 (7.35-7.45); iSTAT Arterial Blood Gas pO2 71 mmHg (80-95); iSTAT Arterial Blood Gas pO2 C 72; iSTAT Carbon Dioxide 26 mmol/L (24-31); iSTAT FiO2 45 %; iSTAT Hematocrit 24 % (42-52); iSTAT Hemoglobin 8.2 g/dl (14.0-18.0); iSTAT Potassium 3.9 mmol/L (3.3-5.0); iSTAT Site Art Line; iSTAT Sodium 137 mmol/L (135-144)
[2023-04-28] MEDS: HEPARIN IV BOLUS 4,000 UNITS in SYRINGE 0 ML IV ONE (12:29)
[2023-04-28 13:34] LABS: Fluid Mono/Macrophage 7 %; Lymphocyte Body Fluid Man 2 %; Neutrophil Body Fluid Man 91 %
--- NOTE | 2023-04-28 15:28 | XCELERA ---
[id number] [email or web address]\[id number]
[2023-04-28 19:05] LABS: ANTI-Xa, UFH(UnfractionatedHep < 0.10 IU/ml (0.3-0.7)
[2023-04-28] MEDS: AZITHROMYCIN 500 MG in DEXTROSE 5% 250 ML IV SCH (22:06)
[2023-04-29 01:44] LABS: ANTI-Xa, UFH(UnfractionatedHep 0.15 IU/ml (0.3-0.7)
[2023-04-29] MEDS: HEPARIN SOD (PORCINE) 1000 UNIT/ML IV STA (02:36)
[2023-04-29 05:10] LABS: BUN Creatinine Ratio 71.1 (10-20); Calcium 7.6 mg/dl (8.6-10.3); Creatinine Clr Calc Pharmacy 71.3 ml/min; Est GFR (African American) 112.5 ml/min; Est GFR (Non-African American) 97.1 ml/min; Magnesium 1.9 mg/dl (1.7-2.4); Phosphorus 3.7 mg/dl (2.5-4.9); Potassium 3.6 mmol/L (3.5-5.1)
[2023-04-29 06:03] LABS: Anisocytosis Present; Basophils # (auto) 0.03 K/uL (0.00-0.20); Basophils % (auto) 0.8 %; Dohle Bodies 1+; Hemoglobin 7.5 g/dl (14.0-18.0); Immature Granulocytes # (auto) 0.03 K/uL (0.01-0.20); Immature Granulocytes % (auto) 0.8 %; Lymphocytes # (auto) 0.14 K/uL (1.20-3.40); Lymphocytes % (auto) 3.8 %; Mean Corpuscular Hemoglobin 31.8 pg (25.0-34.0); Mean Corpuscular Hgb Conc 34.1 g/dL (32.0-36.0); Mean Corpuscular Volume 93.2 fL (80.0-100.0); Mean Platelet Volume 11.8 fL (9.4-12.4); Monocytes # (auto) 0.07 K/uL (0.11-0.59); Monocytes % (auto) 1.9 %; Neutrophils % (auto) 92.7 %; Platelet Count 37 K/uL (130-400); RDW Coefficient of Variation 21.2 % (11.5-14.5); RDW Standard Deviation 69.4 fL (36.4-46.3); Red Blood Count 2.36 M/uL (4.70-6.10); Toxic Granulation 1+; White Blood Count 3.67 K/ul (4.8-10.8)
[2023-04-29] MEDS: MAGNESIUM SULFATE / D5W 1 GM/100 ML BAG IV SCH (06:40)
[2023-04-29] MEDS: POTASSIUM CHLORIDE / WTR 20 MEQ/100 ML PLCT IV SCH (06:40)
[2023-04-29 08:51] LABS: ANTI-Xa, UFH(UnfractionatedHep 0.14 IU/ml (0.3-0.7)
--- NOTE | 2023-04-29 09:09 | Critical Care Progress Note ---
Date of Service April 29, 2023 Assessment & Plan (1) Acute massive pulmonary embolism: (2) Severe sepsis: (3) Acute respiratory failure: (4) Cavitary lesion of lung: (5) Severe malnutrition: (6) Pancytopenia due to antineoplastic chemotherapy: (7) Hyponatremia: Plan Reason Critically Ill: 62 YOM admitted to ICU for shock unspecified, afib with RVR, acute hypoxic respiratory failure. CTA interpreted as saddle PE at bifurcation of PA with bilateral PE's. Requiring vasopressor support for multifactorial shock. Neuro - Sedation for mechanical ventilation, chronic pain - Patient requiring sedation for mechanical ventilation- did not tolerate propofol - will use fentanyl as single agent -Aroused and comfortable currently with JENNIFER -1 and following commands/appropriate Cardiac - Shock multifactorial, elevated troponin: This most consistent with type II ischemia Sub-massive PE with shock: Persistent: Continued vasoactive requirement New onset afib, rate controlled: - Patient with likely both obstructive and distributive shock - saddle PE at pulmonary at bifurcation and bilateral pulmonary embolism -Patient and family opted for anticoagulant management versus thrombolysis -AFIB with RVR- bloused with AMMIO continuing maintenance infusion- for rate control which has been successful at this time with HR 100-110s -Would advocate for lifelong anticoagulation therapy unless bleeding risks increase from active hemorrhage or other risk factors -Secondary to ongoing shock will start thiamine supplementation 500 3 times daily today then 200 mg daily x 1 week. Also initiate vitamin C 1500 mg every 6 hours for 4 days Respiratory - Hypoxic respiratory failure requiring intubation, pneumonia, cavitary lung lesions -Discussed with pulmonary, will [facility] for further evaluation of infiltrative changes from prior CT scan in December -Continue cefepime, Azithromycin, Vancomycin for pneumonia-day 1 of 14 awaiting negative blood cultures: Extended course given significant structural change of lung GI -severe protein calorie malnutrition with PEG tube in place -Holding supplementation as patient has high vasoactive require Transaminitis: Likely multifactorial Severe hypoalbuminemia -I do believe the patient is profoundly plasma protein deficient and likely deficient in Antithrombin therefore had exhibiting signs of relative heparin resistance RENAL/LYTES - 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 He is obviously very complex case, with regard to hit the timing is less than 4 days however he did not have prior heparin exposure for DVT prophylaxis, the venous thromboembolism while a new diagnosis clinically appears to be subacute, there is no skin necrosis and the patient has reasonable cardiac function I would not suspect for acute sudden onset submassive PE. Patient definitively has other probable causes for thrombocytopenia, patient HIT score is 2 which is relative low risk. - Subtherapeutic antiten A level will increase heparin infusion per nomogram and give additional bolus 5000 and total Anemia: Multifactorial as well, need to obtain blood cultures I am concerned about iatrogenic phlebotomy induced anemia will transfuse 1 unit packed red blood cells for ongoing lactic acidosis which is indicative of endorgan ischemia ID - Septic shock - Pseudomonas bacteremia -No clear indication for double coverage given BioFire findings, does carry risk factors of significant structural lung disease with possible mauro mitten sepsis in the setting of submassive PE -Floraquinolone susceptibility less than 90% based off the local antibiogram -Gentamicin only antibiotic we can monitor in house, local susceptibility less than 90% as well -If requires double coverage would advocate for tobramycin or amikacin: Awaiting formal sensitivity -Repeat blood cultures ordered -Anticipate minimum 14 days of effective therapy with IV antibiotics -Sputum growth of Klebsiella and group C beta strep, bronchoscopy culture pending -Anticipate 5 days of treatment with azithromycin for atypical coverage, cefepime for pseudomonal coverage for minimum 14 days, vancomycin to continue for 72 hours empiric given lung findings however his oxygen requirement is not increasing LINES/IV ACCESS - PIV, Central Line Right IJ, Arterial line, ETT, Continue use of these lines DVT PROPHYLAXIS - SCDS, Heparin infusion DISPO: ICU while on vasopressors and requiring mechanical ventilation Care team further clarified that the patient only has 2 living siblings, no parents, no spouse, no children. The patient's acquaintance Cora has been reported to not be a niece, staff has clarified that only Sister Keila and brother Juan will be making treatment decisions at this time I am concerned the patient is entering an end-stage terminal condition without meaningful chance of recovery as described by the patient's family. His overarching goal was to live independently and live at home. All family members described that his care requirements are exceeding that of independent living at this time and this is inconsistent with his [facility] beliefs I have personally spent 65 minutes of critical care time in the direct management of this patient. This is a life/limb threatening event. This includes time spent evaluating patient, direct bedside care, chart review, placing orders, interpretation of diagnostic studies, discussion with consultants, patient, and family members, as well as other required patient management activities. This time is exclusive of all separately billable procedures, and separate from and in addition to any other critical care service time. Update: Discussed with palliative care, family awaiting additional members to arrive from [place] tomorrow anticipate terminal extubation tomorrow. Over arcing goal is to keep patient comfortable and prevent suffering. No escalation of care at this time Admission and Anticipated Discharge Date Admission Date: April 27, 2023 Subjective No significant overnight events, mild decrease in vasoactive requirement Physical Exam Physical Exam: General: Arousable to voice, cachectic and frail in appearance, follows two-step commands Skin: Warm, dry, Head: Atraumatic Ears, nose, mouth and throat: airway obscured by endotracheal tube Cardiovascular: Normal peripheral perfusion Respiratory: Ventilator settings reviewed Gastrointestinal: Non distended Musculoskeletal: No deformity Results & Data Results & Data Vital Signs (Past 12 Hours) Vital Signs Temp Pulse Pulse Resp BP Pulse Ox O2 Del Method 04/29/23 08:37 Mechanical Vent 04/29/23 08:30 37.4 C 99 H 22 93 04/29/23 08:07 37.4 C 99 H 22 93 04/29/23 08:07 101/72 04/29/23 08:00 37.3 C 88 22 94 04/29/23 08:00 101 H 04/29/23 08:00 95 H 107/51 L 04/29/23 07:56 95 H 23 94 04/29/23 07:54 95 H 23 94 Mechanical Vent 04/29/23 07:30 37.4 C 102 H 22 94 04/29/23 07:07 95/68 L 04/29/23 07:07 37.4 C 96 H 22 94 04/29/23 07:00 37.4 C 95 H 22 94 04/29/23 06:30 37.4 C 109 H 22 94 04/29/23 06:07 37.4 C 93 H 22 95 04/29/23 06:07 111/70 04/29/23 06:00 37.4 C 87 23 95 04/29/23 05:30 37.4 C 103 H 22 111/70 95 Mechanical Vent 04/29/23 05:07 104/68 04/29/23 05:00 37.4 C 92 H 22 94 Mechanical Vent 04/29/23 04:00 37.3 C 89 22 98/73 L 95 Mechanical Vent 04/29/23 04:00 04/29/23 04:00 107/54 L 04/29/23 03:00 37.2 C 88 22 102/70 95 Mechanical Vent 04/29/23 02:50 85 23 94 04/29/23 02:00 37.2 C 103 H 24 94 Mechanical Vent 04/29/23 01:00 37.3 C 107 H 22 102/72 95 Mechanical Vent 04/29/23 00:00 37.4 C 99 H 22 106/78 95 Mechanical Vent 04/29/23 00:00 04/29/23 00:00 103 H 108/61 04/29/23 00:00 104 H 04/28/23 23:05 112 H 24 95 04/28/23 23:00 37.5 C 92 H 22 98/75 L 94 Mechanical Vent 04/28/23 22:20 Mechanical Vent 04/28/23 22:00 37.5 C 103 H 23 118/78 94 Mechanical Vent FiO2 04/29/23 08:37 04/29/23 08:30 04/29/23 08:07 04/29/23 08:07 04/29/23 08:00 04/29/23 08:00 04/29/23 08:00 04/29/23 07:56 45 04/29/23 07:54 45 04/29/23 07:30 04/29/23 07:07 04/29/23 07:07 04/29/23 07:00 04/29/23 06:30 04/29/23 06:07 04/29/23 06:07 04/29/23 06:00 04/29/23 05:30 45 04/29/23 05:07 04/29/23 05:00 45 04/29/23 04:00 45 04/29/23 04:00 45 04/29/23 04:00 04/29/23 03:00 45 04/29/23 02:50 45 04/29/23 02:00 45 04/29/23 01:00 45 04/29/23 00:00 45 04/29/23 00:00 45 04/29/23 00:00 04/29/23 00:00 04/28/23 23:05 45 04/28/23 23:00 45 04/28/23 22:20 04/28/23 22:00 45 Critical Care Results & Data Vital Signs (Past 12 Hours) Vital Signs Temp Pulse Pulse Resp BP Pulse Ox O2 Del Method 04/29/23 08:37 Mechanical Vent 04/29/23 08:30 37.4 C 99 H 22 93 04/29/23 08:07 37.4 C 99 H 22 93 04/29/23 08:07 101/72 04/29/23 08:00 37.3 C 88 22 94 04/29/23 08:00 101 H 04/29/23 08:00 95 H 107/51 L 04/29/23 07:56 95 H 23 94 04/29/23 07:54 95 H 23 94 Mechanical Vent 04/29/23 07:30 37.4 C 102 H 22 94 04/29/23 07:07 95/68 L 04/29/23 07:07 37.4 C 96 H 22 94 04/29/23 07:00 37.4 C 95 H 22 94 04/29/23 06:30 37.4 C 109 H 22 94 04/29/23 06:07 37.4 C 93 H 22 95 04/29/23 06:07 111/70 04/29/23 06:00 37.4 C 87 23 95 04/29/23 05:30 37.4 C 103 H 22 111/70 95 Mechanical Vent 04/29/23 05:07 104/68 04/29/23 05:00 37.4 C 92 H 22 94 Mechanical Vent 04/29/23 04:00 37.3 C 89 22 98/73 L 95 Mechanical Vent 04/29/23 04:00 04/29/23 04:00 107/54 L 04/29/23 03:00 37.2 C 88 22 102/70 95 Mechanical Vent 04/29/23 02:50 85 23 94 04/29/23 02:00 37.2 C 103 H 24 94 Mechanical Vent 04/29/23 01:00 37.3 C 107 H 22 102/72 95 Mechanical Vent 04/29/23 00:00 37.4 C 99 H 22 106/78 95 Mechanical Vent 04/29/23 00:00 04/29/23 00:00 103 H 108/61 04/29/23 00:00 104 H 04/28/23 23:05 112 H 24 95 04/28/23 23:00 37.5 C 92 H 22 98/75 L 94 Mechanical Vent 04/28/23 22:20 Mechanical Vent 04/28/23 22:00 37.5 C 103 H 23 118/78 94 Mechanical Vent FiO2 04/29/23 08:37 04/29/23 08:30 04/29/23 08:07 04/29/23 08:07 04/29/23 08:00 04/29/23 08:00 04/29/23 08:00 04/29/23 07:56 45 04/29/23 07:54 45 04/29/23 07:30 04/29/23 07:07 04/29/23 07:07 04/29/23 07:00 04/29/23 06:30 04/29/23 06:07 04/29/23 06:07 04/29/23 06:00 04/29/23 05:30 45 04/29/23 05:07 04/29/23 05:00 45 04/29/23 04:00 45 04/29/23 04:00 45 04/29/23 04:00 04/29/23 03:00 45 04/29/23 02:50 45 04/29/23 02:00 45 04/29/23 01:00 45 04/29/23 00:00 45 04/29/23 00:00 45 04/29/23 00:00 04/29/23 00:00 04/28/23 23:05 45 04/28/23 23:00 45 04/28/23 22:20 04/28/23 22:00 45 Lab & Micro Results (Past 24 Hours) RBC 2.36 M/uL (4.70-6.10) L 04/29/23 WBC 3.67 K/ul (4.8-10.8) L 04/29/23 Hgb 7.5 g/dl (14.0-18.0) L 04/29/23 Hct 22.0 % (42.0-52.0) L 04/29/23 MCV 93.2 fL (80.0-100.0) 04/29/23 MCH 31.8 pg (25.0-34.0) 04/29/23 MCHC 34.1 g/dL (32.0-36.0) 04/29/23 RDW Standard Deviation 69.4 fL (36.4-46.3) H 04/29/23 RDW Coefficient of Variation 21.2 % (11.5-14.5) H 04/29/23 Plt Count 37 K/uL (130-400) L 04/29/23 MPV 11.8 fL (9.4-12.4) 04/29/23 Neutrophils (%) (Auto) 92.7 % 04/29/23 Lymphocytes (%) (Auto) 3.8 % 04/29/23 Monocytes # (Auto) 0.07 K/uL (0.11-0.59) L 04/29/23 Eosinophils # (Auto) 0.00 K/uL (0.00-0.50) 04/29/23 Immature Granulocyte % (Auto) 0.8 % 04/29/23 Neutrophils # (Auto) 3.40 K/uL (1.40-6.50) 04/29/23 Lymphocytes # (Auto) 0.14 K/uL (1.20-3.40) L 04/29/23 Monocytes # (Auto) 0.07 K/uL (0.11-0.59) L 04/29/23 Eosinophils # (Auto) 0.00 K/uL (0.00-0.50) 04/29/23 Basophils # (Auto) 0.03 K/uL (0.00-0.20) 04/29/23 Immature Granulocyte # (Auto) 0.03 K/uL (0.01-0.20) 4 Anisocytosis Present 04/29/23 Toxic Granulation 1+ 04/29/23 Dohle Bodies 1+ 04/29/23 Na 134 mmol/L (136-145) L 04/29/23 K 3.6 mmol/L (3.5-5.1) 04/29/23 Cl 101 mmol/L (98-107) 04/29/23 CO2 24 mmol/L (21-32) 04/29/23 Anion Gap 9 (3-11) 04/29/23 BUN 54 mg/dl (6-23) H 04/29/23 Creatinine 0.76 mg/dl (0.6-1.4) 04/29/23 Estimated GFR ( Amer) 112.5 ml/min 04/29/23 Estimated GFR (Non-Af Amer) 97.1 ml/min 04/29/23 BUN/Creatinine Ratio 71.1 (10-20) H 04/29/23 Glu 135 mg/dl (70-99(Fasting)) H 04/29/23 Ca 7.6 mg/dl (8.6-10.3) L 04/29/23 Phosphorus Level 3.7 mg/dl (2.5-4.9) 04/29/23 Total Bilirubin 0.6 mg/dl (0.2-1.0) 04/29/23 Direct Bilirubin 0.2 mg/dl (0-0.2) 04/29/23 AST 44 U/L (13-39) H 04/29/23 ALT 60 U/L (7-52) H 04/29/23 Alkaline Phosphatase 70 U/L (34-104) 04/29/23 TP 5.7 gm/dl (6.0-8.3) L 04/29/23 Albumin 2.0 gm/dl (3.4-5.0) L 04/29/23 Mg 1.9 mg/dl (1.7-2.4) 04/29/23 03:54 Calcium Level 7.6 mg/dl (8.6-10.3) L 04/29/23 03:54 Prothromb Time International Ratio 1.2 (0.9-1.1) H 04/29/23 08 :09 Microbiology 04/27/23 17:00 Gram Stain - Final Sputum, Expectorated Sputum Culture - Final Klebsiella oxytoca Pseudomonas aeruginosa Group C Beta Strep 04/27/23 17:15 Aerobic Blood Culture - Preliminary Blood Gram negative bacilli Anaerobic Blood Culture - Preliminary No growth in Anaerobic bottle after 24 hours. 04/27/23 17:05 Aerobic Blood Culture - Preliminary Blood Gram negative bacilli Anaerobic Blood Culture - Preliminary No growth in Anaerobic bottle after 24 hours. 04/28/23 09:05 Gram Stain - Final Bronch Wash,Left Lower Lobe Bronchial Culture - Preliminary Gram negative bacilli 04/28/23 09:05 Gram Stain - Final Ba Lavage,Right Upper Lobe Bronchial Culture - Preliminary Gram negative bacilli Gram negative bacilli#2 04/28/23 09:05 Fungal Smear - Final Bronch Wash,Left Lower Lobe 04/28/23 09:05 Fungal Smear - Final Ba Lavage,Right Upper Lobe I & O Totals 24 Hours 04/28/23 04/29/23 04/30/23 06:59 06:59 06:59 Intake Total 5387.803 / 5387.803 3863.386 / 3863.386 532.522 / 532.522 Output Total 605 / 605 1160 / 1160 70 / 70 Balance 4782.803 / 4782.803 2703.386 / 2703.386 462.522 / 462.522 Cumulative 04/27/23 16:18 thru 04/29/23 08:27 Intake Total 9783.711 Output Total 1835 Balance 7948.711 RT Ventilator Mngmt (Last Documented) Ventilator Ordered Settings Ventilator Support Mode Assist Control 04/29/23 07:56 Respiratory Rate 22 04/29/23 08:30 Ventilator Tidal Volume 450 04/29/23 07:56 Setting Minute Ventilation 9 04/29/23 07:56 Positive End Expiratory 5 04/29/23 07:56 Pressure Fraction of Inspired Oxygen 45 04/29/23 07:56 Peak Inspiratory Flow 50 04/28/23 15:32 Ventilator - PT Measurements Respiratory Rate 22 Exhaled Tidal Volume 451 Minute Ventilation 9 Peak Inspiratory Airway 19 Pressure Plateau Pressure 14 Respiratory Cycle Inspiratory: 1:2.5 Expiratory Ratio Inspiratory Phase Time 0.7 End-Tidal CO2 25 Static Lung Compliance 50.11 Dynamic Lung Compliance 32.21 Normal Static Lung Compliance 47.00 Patient Measurements Comment Advanced tube 2cm per Du COLLINS. Decreased FIO2 to 40%. Coding Level of Care Code 53883 CRITICAL CARE 1ST 30-74M Diagnoses Acute massive pulmonary embolism I26.99 Severe sepsis A41.9; R65.20 Acute respiratory failure J96.00 Cavitary lesion of lung J98.4 Severe malnutrition E43 Pancytopenia due to antineoplastic chemotherapy D61.810; T45.1X5A Hyponatremia E87.1
--- NOTE | 2023-04-29 09:22 | Hospitalist Progress Note ---
Date of Service April 29, 2023 Assessment & Plan (1) Acute respiratory failure: (2) Severe sepsis: (3) Pneumonia: Plan: Acute b/l PE Afib w/ RVR Multifocal pna Hypoxic resp. failure Bacteremia Patient is 62-year-old male with PMH squamous cell carcinoma of tongue, malnutrition, PEG tube status, right lung cavitary lesion, former tobacco use, former alcohol use presented to ER with complaint cough and increased SOB x 1 week. Also found to have Acute PE. Afib w/ RVR. Intubated on admission, also requiring vasopressor support. Currently in ICU. S/p bronchoscopy today (04/28/2023) Upon arrival to ER Patient noted to be febrile 38.9 C rectal, P: 126, R: 30, BP 118/71, 94% on nonrebreather. WBC: 3.7, H/H: 7.4/22, Plt: 90, BUN: 64, Cr: 1.1 Lactate: 3.7, procalcitonin: 15, troponin: 45 CXR: Interval progression of bilateral airspace opacities suggestive of a pneumonia. Trace right pleural effusion. During ER course patient became more tachycardic, tachypneic and hypotensive In ER was given 2L NSS, cefepime, vancomycin Was placed on bipap CT chest - 1. Bilateral pulmonary embolism 2. Bilateral multifocal pneumonia 3. Cavitary lesion in the right lung apex with dependent nodularity. Aspergilloma cannot be excluded. Discussion with patient at bedside and states would want intubation/ventilation, medications including pressors if needed but would not want chest compressions ICU contacted and provider recommended intubation and ICU admission. Discussed with ER Dr Kenney Pt intubated and requiring vasopressor support, currently in ICU Now s/p bronchoscopy per pulmonary medicine (04/28/2023) - 1. Mucopurulent secretions from the bilateral lower lobes collected via bronchial washing for microbiologic analysis. 2. BAL of the cavitary lesion in the right apex, await microbiologic including AFB and fungal stains and cultures as well as cytology. Acute b/l PE - currently on IV heparin (per ICU team) Afib w/ RVR - IV heparin + amiodarone Multifocal pna, cavitary lesion - underwent bronchoscopy today (04/27) , pulmonary medicine consulted by marble finisher - continuing broad spectrum antibiotics per ICU team - vancomycin, cefepime, azithromycin Bacteremia- blood cultx posit. for Pseudomonas - cont. 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 Currently not taking oral secondary to oral mouth pain from radiation. Significant weight loss over past 9 months. PEG tube receiving tube feeds 6 time daily On home Nutren Will need nutrition consult Goals of care - per RN at the bedside - plan for family to come in later today. Disposition ICU Conditional code as per discussion with pt, want intubation/ventilation, medications including pressors if needed but would not want chest compressions. Currently pt intubated, requiring vasopressor support. Follows with Dr Aceves for routine care Admission and Anticipated Discharge Date Admission Date: April 27, 2023 Subjective Pt seen in follow up of PE, sepsis, pneumonia, lung cavitary lesion. Blood cultx posit. for pseudomonas. Developed afib w/ RVR - iv heparin + amio. In addition broad spectrum abx Intubated in ED on admission, also requiring vasopressor support, currently in ICU Underwent bronchoscopy yesterday Currently laying in bed in ICU, in NAD, intubated, nods to answer, his eyes are open, appears comfortable Discussed w/ pt's RN - reports family is coming in later today Will further discuss w/ ICU team Review of Systems Review of Systems: All systems reviewed & are unremarkable except as noted in Subjective Physical Exam Physical Exam: Gen: cachectic M intubated, + chronically ill/frail appearing Head: deep temporal wasting and sunken cheeks CV: tachycardic, irreg rhythm Pulm: coarse breath sounds Ext: no edema Neuro: sedated, on vent. nods but does not open eyes to my voice MSK: diffuse muscle wasting, cachectic Results & Data Results & Data Vital Signs (Past 12 Hours) Vital Signs Temp Pulse Pulse Resp BP Pulse Ox O2 Del Method 04/29/23 08:37 Mechanical Vent 04/29/23 08:30 37.4 C 99 H 22 93 04/29/23 08:07 37.4 C 99 H 22 93 04/29/23 08:07 101/72 04/29/23 08:00 37.3 C 88 22 94 04/29/23 08:00 101 H 04/29/23 08:00 95 H 107/51 L 04/29/23 07:56 95 H 23 94 04/29/23 07:54 95 H 23 94 Mechanical Vent 04/29/23 07:30 37.4 C 102 H 22 94 04/29/23 07:07 95/68 L 04/29/23 07:07 37.4 C 96 H 22 94 04/29/23 07:00 37.4 C 95 H 22 94 04/29/23 06:30 37.4 C 109 H 22 94 04/29/23 06:07 37.4 C 93 H 22 95 04/29/23 06:07 111/70 04/29/23 06:00 37.4 C 87 23 95 04/29/23 05:30 37.4 C 103 H 22 111/70 95 Mechanical Vent 04/29/23 05:07 104/68 04/29/23 05:00 37.4 C 92 H 22 94 Mechanical Vent 04/29/23 04:00 37.3 C 89 22 98/73 L 95 Mechanical Vent 04/29/23 04:00 04/29/23 04:00 107/54 L 04/29/23 03:00 37.2 C 88 22 102/70 95 Mechanical Vent 04/29/23 02:50 85 23 94 04/29/23 02:00 37.2 C 103 H 24 94 Mechanical Vent 04/29/23 01:00 37.3 C 107 H 22 102/72 95 Mechanical Vent 04/29/23 00:00 37.4 C 99 H 22 106/78 95 Mechanical Vent 04/29/23 00:00 04/29/23 00:00 103 H 108/61 04/29/23 00:00 104 H 04/28/23 23:05 112 H 24 95 04/28/23 23:00 37.5 C 92 H 22 98/75 L 94 Mechanical Vent 04/28/23 22:20 Mechanical Vent 04/28/23 22:00 37.5 C 103 H 23 118/78 94 Mechanical Vent FiO2 04/29/23 08:37 04/29/23 08:30 04/29/23 08:07 04/29/23 08:07 04/29/23 08:00 04/29/23 08:00 04/29/23 08:00 04/29/23 07:56 45 04/29/23 07:54 45 04/29/23 07:30 04/29/23 07:07 04/29/23 07:07 04/29/23 07:00 04/29/23 06:30 04/29/23 06:07 04/29/23 06:07 04/29/23 06:00 04/29/23 05:30 45 04/29/23 05:07 04/29/23 05:00 45 04/29/23 04:00 45 04/29/23 04:00 45 04/29/23 04:00 04/29/23 03:00 45 04/29/23 02:50 45 04/29/23 02:00 45 04/29/23 01:00 45 04/29/23 00:00 45 04/29/23 00:00 45 04/29/23 00:00 04/29/23 00:00 04/28/23 23:05 45 04/28/23 23:00 45 04/28/23 22:20 04/28/23 22:00 45 Laboratory Results 04/29/23 04/29/23 04/29/23 Range/Units 08:09 05:59 03:54 WBC 3.67 L (4.8-10.8) K/ul RBC 2.36 L (4.70-6.10) M/uL Hgb 7.5 L (14.0-18.0) g/dl POC Hgb (14.0-18.0) g/dl Hct 22.0 L (42.0-52.0) % POC Hct (42-52) % MCV 93.2 (80.0-100.0) fL MCH 31.8 (25.0-34.0) pg MCHC 34.1 (32.0-36.0) g/dL RDW Std Deviation 69.4 H (36.4-46.3) fL RDW Coeff of Suraj 21.2 H (11.5-14.5) % Plt Count 37 L (130-400) K/uL MPV 11.8 (9.4-12.4) fL Immature Gran % (Auto) 0.8 % Neut % (Auto) 92.7 % Lymph % (Auto) 3.8 % Garvin % (Auto) 1.9 % Eos % (Auto) 0.0 % Baso % (Auto) 0.8 % Neut # (Auto) 3.40 (1.40-6.50) K/uL Lymph # (Auto) 0.14 L (1.20-3.40) K/uL Garvin # (Auto) 0.07 L (0.11-0.59) K/uL Eos # (Auto) 0.00 (0.00-0.50) K/uL Baso # (Auto) 0.03 (0.00-0.20) K/uL Immature Gran # (Auto) 0.03 (0.01-0.20) K/uL Toxic Granulation 1+ Dohle Bodies 1+ Anisocytosis Present Heparin Anti-Xa, Unfract 0.14 L (0.3-0.7) IU/ml Sample Site POC pH (7.35-7.45) POC pCO2 (35-46) mmHg POC pO2 (80-95) mmHg POC HCO3 (19-24) dimitri/L POC Total CO2 (24-31) mmol/L POC Base Excess (-9-1.8) dimitri/L ABG pH (Temp Correct) (7.35-7.45) ABG pCO2 (Temp Corrct (35-46) mmHg POC ABG pO2 at Pt Temp POC ABG O2 Sat (90-95) % Jeremy Test O2 Delivery Device POC O2 Rate Minute Ventilation POC FiO2 % Tidal Volume PEEP POC Sodium (135-144) mmol/L Sodium 134 L (136-145) mmol/L POC Potassium (3.3-5.0) mmol/L Potassium 3.6 (3.5-5.1) mmol/L Chloride 101 (98-107) mmol/L Carbon Dioxide 24 (21-32) mmol/L Anion Gap 9 (3-11) BUN 54 H (6-23) mg/dl Creatinine 0.76 (0.6-1.4) mg/dl Est Cr Clr Drug Dosing 71.3 ml/min Est GFR ( Amer) 112.5 ml/min Est GFR (Non-Af Amer) 97.1 ml/min BUN/Creatinine Ratio 71.1 H (10-20) Glucose 135 H (70-99(Fasting)) mg/dl POC Glucose 142 H (70-99) mg/dl POC Glucose (other) (70-99) mg/dl Lactate (0.4-2.0) mmol/L Calcium 7.6 L (8.6-10.3) mg/dl Phosphorus 3.7 (2.5-4.9) mg/dl Magnesium 1.9 (1.7-2.4) mg/dl Fluid Neutrophils % % Fluid Lymphocytes % % Fl Monocyt/Macrophag % % Fluid Comment Random Vancomycin 13.8 (10-20) mcg/ml P. aeruginosa (PCR) (NotDetected) blaIMP Car res Gene PCR (NotDetected) KPC-Carbap Res Gene PCR (NotDetected) blaNDM Car Res Gene PCR (NotDetected) blaVIM Car Res Gene PCR (NotDetected) CTX-M Gene Resistance (PCR) (NotDetected) Bld Cult ID Panel PCR (NotDetected) Crossmatch 04/29/23 04/29/23 04/28/23 Range/Units 01:13 00:05 18:21 WBC (4.8-10.8) K/ul RBC (4.70-6.10) M/uL Hgb (14.0-18.0) g/dl POC Hgb (14.0-18.0) g/dl Hct (42.0-52.0) % POC Hct (42-52) % MCV (80.0-100.0) fL MCH (25.0-34.0) pg MCHC (32.0-36.0) g/dL RDW Std Deviation (36.4-46.3) fL RDW Coeff of Suraj (11.5-14.5) % Plt Count (130-400) K/uL MPV (9.4-12.4) fL Immature Gran % (Auto) % Neut % (Auto) % Lymph % (Auto) % Garvin % (Auto) % Eos % (Auto) % Baso % (Auto) % Neut # (Auto) (1.40-6.50) K/uL Lymph # (Auto) (1.20-3.40) K/uL Garvin # (Auto) (0.11-0.59) K/uL Eos # (Auto) (0.00-0.50) K/uL Baso # (Auto) (0.00-0.20) K/uL Immature Gran # (Auto) (0.01-0.20) K/uL Toxic Granulation Dohle Bodies Anisocytosis Heparin Anti-Xa, Unfract 0.15 L < 0.10 L (0.3-0.7) IU/ml Sample Site POC pH (7.35-7.45) POC pCO2 (35-46) mmHg POC pO2 (80-95) mmHg POC HCO3 (19-24) dimitri/L POC Total CO2 (24-31) mmol/L POC Base Excess (-9-1.8) dimitri/L ABG pH (Temp Correct) (7.35-7.45) ABG pCO2 (Temp Corrct (35-46) mmHg POC ABG pO2 at Pt Temp POC ABG O2 Sat (90-95) % Jeremy Test O2 Delivery Device POC O2 Rate Minute Ventilation POC FiO2 % Tidal Volume PEEP POC Sodium (135-144) mmol/L Sodium (136-145) mmol/L POC Potassium (3.3-5.0) mmol/L Potassium (3.5-5.1) mmol/L Chloride (98-107) mmol/L Carbon Dioxide (21-32) mmol/L Anion Gap (3-11) BUN (6-23) mg/dl Creatinine (0.6-1.4) mg/dl Est Cr Clr Drug Dosing ml/min Est GFR ( Amer) ml/min Est GFR (Non-Af Amer) ml/min BUN/Creatinine Ratio (10-20) Glucose (70-99(Fasting)) mg/dl POC Glucose 188 H (70-99) mg/dl POC Glucose (other) (70-99) mg/dl Lactate (0.4-2.0) mmol/L Calcium (8.6-10.3) mg/dl Phosphorus (2.5-4.9) mg/dl Magnesium (1.7-2.4) mg/dl Fluid Neutrophils % % Fluid Lymphocytes % % Fl Monocyt/Macrophag % % Fluid Comment Random Vancomycin (10-20) mcg/ml P. aeruginosa (PCR) (NotDetected) blaIMP Car res Gene PCR (NotDetected) KPC-Carbap Res Gene PCR (NotDetected) blaNDM Car Res Gene PCR (NotDetected) blaVIM Car Res Gene PCR (NotDetected) CTX-M Gene Resistance (PCR) (NotDetected) Bld Cult ID Panel PCR (NotDetected) Crossmatch 04/28/23 04/28/23 04/28/23 Range/Units 16:08 10:21 09:57 WBC (4.8-10.8) K/ul RBC (4.70-6.10) M/uL Hgb (14.0-18.0) g/dl POC Hgb 8.2 L (14.0-18.0) g/dl Hct (42.0-52.0) % POC Hct 24 L (42-52) % MCV (80.0-100.0) fL MCH (25.0-34.0) pg MCHC (32.0-36.0) g/dL RDW Std Deviation (36.4-46.3) fL RDW Coeff of Suraj (11.5-14.5) % Plt Count (130-400) K/uL MPV (9.4-12.4) fL Immature Gran % (Auto) % Neut % (Auto) % Lymph % (Auto) % Garvin % (Auto) % Eos % (Auto) % Baso % (Auto) % Neut # (Auto) (1.40-6.50) K/uL Lymph # (Auto) (1.20-3.40) K/uL Garvin # (Auto) (0.11-0.59) K/uL Eos # (Auto) (0.00-0.50) K/uL Baso # (Auto) (0.00-0.20) K/uL Immature Gran # (Auto) (0.01-0.20) K/uL Toxic Granulation Dohle Bodies Anisocytosis Heparin Anti-Xa, Unfract (0.3-0.7) IU/ml Sample Site Art Line POC pH 7.37 (7.35-7.45) POC pCO2 44 (35-46) mmHg POC pO2 71 L (80-95) mmHg POC HCO3 25 H (19-24) dimitri/L POC Total CO2 26 (24-31) mmol/L POC Base Excess 0.0 (-9-1.8) dimitri/L ABG pH (Temp Correct) 7.364 (7.35-7.45) ABG pCO2 (Temp Corrct 44 (35-46) mmHg POC ABG pO2 at Pt Temp 72 POC ABG O2 Sat 93.0 (90-95) % Jeremy Test NA O2 Delivery Device Ventilator POC O2 Rate 22 Minute Ventilation 9.9 POC FiO2 45 % Tidal Volume 450 PEEP 5 POC Sodium 137 (135-144) mmol/L Sodium (136-145) mmol/L POC Potassium 3.9 (3.3-5.0) mmol/L Potassium (3.5-5.1) mmol/L Chloride (98-107) mmol/L Carbon Dioxide (21-32) mmol/L Anion Gap (3-11) BUN (6-23) mg/dl Creatinine (0.6-1.4) mg/dl Est Cr Clr Drug Dosing ml/min Est GFR ( Amer) ml/min Est GFR (Non-Af Amer) ml/min BUN/Creatinine Ratio (10-20) Glucose (70-99(Fasting)) mg/dl POC Glucose (70-99) mg/dl POC Glucose (other) 128 H 181 H (70-99) mg/dl Lactate (0.4-2.0) mmol/L Calcium (8.6-10.3) mg/dl Phosphorus (2.5-4.9) mg/dl Magnesium (1.7-2.4) mg/dl Fluid Neutrophils % % Fluid Lymphocytes % % Fl Monocyt/Macrophag % % Fluid Comment Random Vancomycin (10-20) mcg/ml P. aeruginosa (PCR) (NotDetected) blaIMP Car res Gene PCR (NotDetected) KPC-Carbap Res Gene PCR (NotDetected) blaNDM Car Res Gene PCR (NotDetected) blaVIM Car Res Gene PCR (NotDetected) CTX-M Gene Resistance (PCR) (NotDetected) Bld Cult ID Panel PCR (NotDetected) Crossmatch 04/28/23 04/28/23 04/28/23 Range/Units 09:51 09:43 09:05 WBC (4.8-10.8) K/ul RBC (4.70-6.10) M/uL Hgb (14.0-18.0) g/dl POC Hgb (14.0-18.0) g/dl Hct (42.0-52.0) % POC Hct (42-52) % MCV (80.0-100.0) fL MCH (25.0-34.0) pg MCHC (32.0-36.0) g/dL RDW Std Deviation (36.4-46.3) fL RDW Coeff of Suraj (11.5-14.5) % Plt Count (130-400) K/uL MPV (9.4-12.4) fL Immature Gran % (Auto) % Neut % (Auto) % Lymph % (Auto) % Garvin % (Auto) % Eos % (Auto) % Baso % (Auto) % Neut # (Auto) (1.40-6.50) K/uL Lymph # (Auto) (1.20-3.40) K/uL Garvin # (Auto) (0.11-0.59) K/uL Eos # (Auto) (0.00-0.50) K/uL Baso # (Auto) (0.00-0.20) K/uL Immature Gran # (Auto) (0.01-0.20) K/uL Toxic Granulation Dohle Bodies Anisocytosis Heparin Anti-Xa, Unfract (0.3-0.7) IU/ml Sample Site POC pH (7.35-7.45) POC pCO2 (35-46) mmHg POC pO2 (80-95) mmHg POC HCO3 (19-24) dimitri/L POC Total CO2 (24-31) mmol/L POC Base Excess (-9-1.8) dimitri/L ABG pH (Temp Correct) (7.35-7.45) ABG pCO2 (Temp Corrct (35-46) mmHg POC ABG pO2 at Pt Temp POC ABG O2 Sat (90-95) % Jeremy Test O2 Delivery Device POC O2 Rate Minute Ventilation POC FiO2 % Tidal Volume PEEP POC Sodium (135-144) mmol/L Sodium (136-145) mmol/L POC Potassium (3.3-5.0) mmol/L Potassium (3.5-5.1) mmol/L Chloride (98-107) mmol/L Carbon Dioxide (21-32) mmol/L Anion Gap (3-11) BUN (6-23) mg/dl Creatinine (0.6-1.4) mg/dl Est Cr Clr Drug Dosing ml/min Est GFR ( Amer) ml/min Est GFR (Non-Af Amer) ml/min BUN/Creatinine Ratio (10-20) Glucose (70-99(Fasting)) mg/dl POC Glucose 196 H (70-99) mg/dl POC Glucose (other) (70-99) mg/dl Lactate 3.6 H* (0.4-2.0) mmol/L Calcium (8.6-10.3) mg/dl Phosphorus (2.5-4.9) mg/dl Magnesium (1.7-2.4) mg/dl Fluid Neutrophils % 91 % Fluid Lymphocytes % 2 % Fl Monocyt/Macrophag % 7 % Fluid Comment Random Vancomycin (10-20) mcg/ml P. aeruginosa (PCR) (NotDetected) blaIMP Car res Gene PCR (NotDetected) KPC-Carbap Res Gene PCR (NotDetected) blaNDM Car Res Gene PCR (NotDetected) blaVIM Car Res Gene PCR (NotDetected) CTX-M Gene Resistance (PCR) (NotDetected) Bld Cult ID Panel PCR (NotDetected) Crossmatch 04/27/23 04/27/23 Range/Units 21:49 17:05 WBC (4.8-10.8) K/ul RBC (4.70-6.10) M/uL Hgb (14.0-18.0) g/dl POC Hgb (14.0-18.0) g/dl Hct (42.0-52.0) % POC Hct (42-52) % MCV (80.0-100.0) fL MCH (25.0-34.0) pg MCHC (32.0-36.0) g/dL RDW Std Deviation (36.4-46.3) fL RDW Coeff of Suraj (11.5-14.5) % Plt Count (130-400) K/uL MPV (9.4-12.4) fL Immature Gran % (Auto) % Neut % (Auto) % Lymph % (Auto) % Garvin % (Auto) % Eos % (Auto) % Baso % (Auto) % Neut # (Auto) (1.40-6.50) K/uL Lymph # (Auto) (1.20-3.40) K/uL Garvin # (Auto) (0.11-0.59) K/uL Eos # (Auto) (0.00-0.50) K/uL Baso # (Auto) (0.00-0.20) K/uL Immature Gran # (Auto) (0.01-0.20) K/uL Toxic Granulation Dohle Bodies Anisocytosis Heparin Anti-Xa, Unfract (0.3-0.7) IU/ml Sample Site POC pH (7.35-7.45) POC pCO2 (35-46) mmHg POC pO2 (80-95) mmHg POC HCO3 (19-24) dimitri/L POC Total CO2 (24-31) mmol/L POC Base Excess (-9-1.8) dimitri/L ABG pH (Temp Correct) (7.35-7.45) ABG pCO2 (Temp Corrct (35-46) mmHg POC ABG pO2 at Pt Temp POC ABG O2 Sat (90-95) % Jeremy Test O2 Delivery Device POC O2 Rate Minute Ventilation POC FiO2 % Tidal Volume PEEP POC Sodium (135-144) mmol/L Sodium (136-145) mmol/L POC Potassium (3.3-5.0) mmol/L Potassium (3.5-5.1) mmol/L Chloride (98-107) mmol/L Carbon Dioxide (21-32) mmol/L Anion Gap (3-11) BUN (6-23) mg/dl Creatinine (0.6-1.4) mg/dl Est Cr Clr Drug Dosing ml/min Est GFR ( Amer) ml/min Est GFR (Non-Af Amer) ml/min BUN/Creatinine Ratio (10-20) Glucose (70-99(Fasting)) mg/dl POC Glucose (70-99) mg/dl POC Glucose (other) (70-99) mg/dl Lactate (0.4-2.0) mmol/L Calcium (8.6-10.3) mg/dl Phosphorus (2.5-4.9) mg/dl Magnesium (1.7-2.4) mg/dl Fluid Neutrophils % % Fluid Lymphocytes % % Fl Monocyt/Macrophag % % Fluid Comment Random Vancomycin (10-20) mcg/ml P. aeruginosa (PCR) DETECTED A (NotDetected) blaIMP Car res Gene PCR Not Detected (NotDetected) KPC-Carbap Res Gene PCR Not Detected (NotDetected) blaNDM Car Res Gene PCR Not Detected (NotDetected) blaVIM Car Res Gene PCR Not Detected (NotDetected) CTX-M Gene Resistance (PCR) Not Detected (NotDetected) Bld Cult ID Panel PCR See PCR Comment (NotDetected) Crossmatch See Detail Medications Administered Current Inpatient Medications Albuterol (Albuterol Hfa 8 Gm Inhaler) 2 puffs INH Q6H PRN PRN Reason: Shortness Of Breath/COUGH/WHEE Stop: 05/27/23 22:37 Dextrose (Dextrose 50% 50 Ml Syringe) 25 - 50 ml IV UD PRN; Protocol PRN Reason: Hypoglycemia Protocol Stop: 05/28/23 10:05 Fentanyl Citrate (Fentanyl Citrate Pf 100 Mcg/2 Ml Vial) 50 mcg IV Q2H PRN PRN Reason: Moderate Pain (4,5,6) on NRS Stop: 05/11/23 20:51 Last Admin: 04/27/23 21:55 Dose: 50 mcg Fentanyl Citrate (Fentanyl Bolus From Bag) 50 mcg IV Q60M PRN PRN Reason: Pain or Agitation Stop: 05/11/23 22:07 Glucagon (Glucagon For Inj 1 Mg Vial) 1 mg SQ UD PRN; Protocol PRN Reason: Hypoglycemia Protocol Stop: 05/28/23 10:05 Glucose (Glucose 40% Gel 15 Gm Tube) 15 - 30 gm PO UD PRN; Protocol PRN Reason: Hypoglycemia Protocol Stop: 05/28/23 10:05 Glucose (Glucose 10 Tab/Tube) 4 - 8 tab PO UD PRN; Protocol PRN Reason: Hypoglycemia Treatment Stop: 05/28/23 10:05 Norepinephrine Bitartrate (Levophed/D5w) 4 mg in 250 mls @ 38.34 mls/hr IV .Q6H32M [facility]; Protocol Stop: 05/27/23 19:44 Last Titration: 04/29/23 07:01 Dose: 0.18 mcg/kg/min, 38.3 mls/hr Amiodarone HCl/Dextrose (Nexterone / D5w) 360 mg in 200 mls @ 16.667 mls/hr IV .Q12H XI Stop: 05/28/23 03:09 Last Infusion: 04/29/23 07:01 Dose: 0.5 mg/min, 16.7 mls/hr Vasopressin 20 units/ Sodium (Chloride) 101 mls @ 12.12 mls/hr IV .Q8H20M XI Stop: 05/27/23 21:29 Last Infusion: 04/29/23 07:01 Dose: 0.04 unit/min, 12.1 mls/hr Vancomycin HCl 750 mg/ Sodium (Chloride) 265 mls @ 200 mls/hr IV Q12H [facility] Stop: 04/30/23 05:59 Last Infusion: 04/29/23 06:29 Dose: Infused Cefepime HCl 2,000 mg/ Syringe 20 mls @ 5 mls/min IV Q12H [facility] Stop: 05/04/23 16:59 Last Admin: 04/29/23 04:21 Dose: 5 mls/min Azithromycin 500 mg/ Dextrose 255 mls @ 125 mls/hr IV Q24H [facility] Stop: 05/05/23 20:59 Last Infusion: 04/29/23 00:14 Dose: Infused Fentanyl Citrate (Fentanyl Citrate) 2,500 mcg in 250 mls @ 17.5 mls/hr IV .[id number] [facility]; Protocol Stop: 05/11/23 22:14 Last Titration: 04/29/23 07:01 Dose: 175 mcg/hr, 17.5 mls/hr Heparin Sodium/Dextrose (Heparin Sodium/Dextrose) 25,000 units in 500 mls @ 26 mls/hr IV .[id number] [facility]; Protocol Stop: 05/27/23 23:44 Last Titration: 04/29/23 07:01 Dose: 1,300 units/hr, 26 mls/hr Potassium Chloride (K Kvng / Wtr) 20 meq in 100 mls @ 50 mls/hr IV Q2H [facility] Stop: 04/29/23 10:44 Last Admin: 04/29/23 08:27 Dose: 50 mls/hr Magnesium Sulfate/Dextrose (Magnesium Sulfate / D5w) 1 gm in 100 mls @ 50 mls/hr IV Q2H XI Stop: 04/29/23 10:44 Last Admin: 04/29/23 08:27 Dose: 50 mls/hr Insulin Aspart (Insulin Aspart Per Unit Charge) 0 units SC Q6 XI Stop: 05/28/23 11:59 Last Admin: 04/29/23 06:27 Dose: 1 units Miscellaneous (Carbohydrates For Hypoglycemia ) 15 - 30 gm PO UD PRN PRN Reason: Hypoglycemia Protocol Stop: 05/28/23 10:05 Miscellaneous Information (Vancomycin Consult Active) 1 each N/A UD PRN PRN Reason: Consult Stop: 05/27/23 18:08 Multi-Ingredient Mouthwash/Gargle (First - Mouthwash Blm 119 Ml) 10 ml PO ACHS PRN PRN Reason: mouth pain Stop: 05/27/23 22:48
[2023-04-29] MEDS ORDERED: SODIUM CHLORIDE 0.9% 250 ML IV PRN (10:00)
[2023-04-29 10:11] LABS: Fibrinogen 724 mg/dl (184-400); INR 1.2 (0.9-1.1); Prothrombin Time 12.7 Seconds (9.0-12.0)
[2023-04-29] MEDS: HEPARIN SOD (PORCINE) 1000 UNIT/ML IV ONE (10:57)
--- NOTE | 2023-04-29 12:17 | Palliative Care Consultation ---
Date of Consultation April 29, 2023 Assessment & Plan (1) Dyspnea and respiratory abnormalities: (2) Weakness generalized: (3) Cancer cachexia: (4) Advanced care planning/counseling discussion: see separate family meeting held later today (5) Discussion about advance care planning held with family member: See #4 above (6) Palliative care by specialist: Met with pt/family. Provided overview of Palliative Medicine, a subspecialty that provides specialized medical care for people living with a serious illness by offering a focus on quality of life. Palliative Medicine is often conflated with hospice: I advised patient/family that Palliative and hospice can be partners but we are not the same. It is important to understand the difference so that we may be informed, and not afraid. Palliative Medicine works to improve QOL through reduction of symptom burden/more control over their illness, for both the patient and family. Palliative medicine clinicians are board certified, specially-trained and another member of the patient's medical care team. We often provide an extra layer of support because our care is based on the needs of the patient, not the prognosis; as such, it's appropriate at any age/advancing stage of a serious illness and can be provided along with curative treatment. Palliative Medicine clinicians are also trained in advanced communication methodologies, to facilitate complex discussions about advanced illness planning, which are needed to help assure that the treatment choices match the patient's goals, aka delivering Goal Concordant care. Finally, we discussed that hospice is a visiting nurse service that focuses on care delivered at the very end of life for patients with terminal illness, with life expectancy less than 6 month. (7) Primary tongue squamous cell carcinoma: (8) Multifocal pneumonia: (9) Cavitary lesion of lung: (10) Severe malnutrition: (11) Acute massive pulmonary embolism: (12) Severe sepsis: (13) Septic shock: (14) Acute respiratory failure with hypoxemia: Plan * Pt and family agree with recc to move to comfort care. Patient is clear he does not want to suffer, he does not want to live on life support and he does not want to live dependent on others for care in a facility. He is acutely aware he is nearing his dying time and wants to have more pain and dyspnea burden relief. * Comfort care status ordered. NO escalation of care. D/w nursing and CCM. * Compassionate extubation tomorrow after entire family arrives , likely late morning. * I have outlined a detailed PalliMed compassionate extubation protocol in my family meeting ACP note. * Extensive support and reassurance provided to family. See ACP note for details. Thank you for allowing us to participate in the ongoing care of this patient. Please don't hesitate to call or page with any additional concerns. Dr. Jennifer Mcclure DNP Director, Palliative Care History of Present Illness Reason for Consultation: On 04/28/23 @ 14:55 Arthur Escalante Wrote To Jennifer Mcclure goals of care, possible home with hospice Attending Physician: Jose Manuel Rodriguez MD History of Present Illness Mr. Robins is a 62yo male admitted 04/27/23 with resp failure due to progression of SCC Right lateral tongue squamous cell carcinoma (-large primary tumor measuring about 6.2 cm, T4 primary tumor, possible N1, M0) s/p chemo, radiation tongue along with complications of cancer related malnutrition, PEG feeds, right lung cavitary lesion, former smoker, former ETOH abuse/ combined chemotherapy with weekly cisplatin and radiation treatment. (02/13/2023--); radiation treatment at [facility]. PMH Includes Centrilobular emphysema Cavitary lung disease with CT 04/16/22 - Significant interval worsening of consolidations, cavities and density in the right upper lobe with interval development of new consolidations and cavities in the posterior right lower lobe and a small lesion in superior segment of the left lower lobe. he has been seeing Dr Wang at [facility] Gastrostomy tube feeding, nutren 6x with water flushes Syndrome of inappropriate secretion of antidiuretic hormone Initial complaints were increased dyspnea and cough with congestion for one week prior. He was found to have a multifocal PNA with bilat PE. Bronchoscopy done 04/27. Right cavitary lesion suspicious for ?aspergilloma. In ED pt stated he wanted intubation and MV but not chest compressions. He was intubated in ICU and remains so today. He is on pressors. Bronchoscopy per pulmonary medicine 04/28/23: 1. Mucopurulent secretions from the bilateral lower lobes collected via bronchial washing for microbiologic analysis. 2. BAL of the cavitary lesion in the right apex, await microbiologic including AFB and fungal stains and cultures as well as cytology. He is followed by Moise [facility] through the [facility] program. In our discussion this morning, Mr Martin advised pt and he ahd prelim ACP discussion and paperwork for AD was left with pt who was contemplating who he would ask to be his SDM. He does not have much social support and is fairly isolated. [facility] EMR Link was reviewed. Allergies Allergy/AdvReac Type Severity Reaction Status Date / Time No Known Allergies Allergy Verified 04/27/23 18:46 Home Medications Medication Instructions Recorded Confirmed Type ondansetron HCl 8 mg tablet 8 mg PO Q8H PRN Nausea And Vomiting 01/14/23 04/27/23 History prochlorperazine maleate 10 mg 10 mg PO Q6H PRN Nausea And 01/14/23 04/27/23 History tablet (Compazine) Vomiting Magic Mouthwash 300 mL mouthwash 10 ml mucous membrane ACHS PRN 01/27/23 04/27/23 Rx mouth pain #300 mL morphine concentrate 100 mg/5 mL 5 mg PO Q4H PRN Pain 03/19/23 04/27/23 History (20 mg/mL) oral solution albuterol sulfate 90 mcg/actuation 2 inh inhalation Q6H PRN Shortness 04/01/23 04/27/23 History aerosol inhaler Of Breath/COUGH/WHEEZING Nutramigen Feedings 1 dose feeding tube DIRECTED 04/27/23 04/27/23 History fentanyl 12 mcg/hr transdermal 12 mcg transdermal Q72H 04/27/23 04/27/23 History patch tiotropium bromide 2.5 2 puff inhalation QAM 04/27/23 04/27/23 History mcg/actuation mist for inhalation (Spiriva Respimat) Patient History Medical History (Updated 04/29/23 @ 12:44 by Jennifer Mcclure DNP) Primary tongue squamous cell carcinoma Palliative care by specialist Discussion about advance care planning held with family member Advanced care planning/counseling discussion Cancer cachexia Weakness generalized Dyspnea and respiratory abnormalities Cavitary lesion of lung Severe malnutrition Cancer of oral cavity Venous insufficiency Cavitary lung disease Centrilobular emphysema Tobacco use disorder Surgical History S/P percutaneous endoscopic gastrostomy (PEG) tube placement S/P bronchoscopy Family History Mother Myocardial infarction Father Myocardial infarction Sister Myocardial infarction Social History Smoking Status: Former smoker Tobacco Type: Cigarettes Age Started Using Tobacco: 15; Second Hand Exposure: No; Do You Dip or Chew Tobacco: No; Hx Alcohol Use: No Hx Substance Use: No Preferred Language: Vietnamese Communication Ability: Unable Communication Ability Comment: does have difficulty speaking due to oral pain Visual Impairment: No Limitations Hearing Ability: Normal Beliefs That Will Affect Care: Cultural Current Living Situation: Alone Current Living Situation Comment: Alone in house current occupational status: employed 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 diminished overall tachy s1s2, no gross JVD no stridor abd scaphoid, PEG+, non tender +muscle wasting diffuse +generalized weakness skin pale, cool, stretched tautly over bony prominences AAOx3 Results & Data Vital Signs (Past 12 Hours) Vital Signs Temp Pulse Pulse Resp BP Pulse Ox O2 Del Method 04/29/23 11:31 37.4 C 96 H 22 94 04/29/23 11:25 37.4 C 93 H 22 103/53 L 94 04/29/23 11:10 37.4 C 96 H 22 104/50 L 94 04/29/23 10:50 37.4 C 97 H 26 H 115/58 L 94 04/29/23 08:37 Mechanical Vent 04/29/23 08:30 37.4 C 99 H 22 93 04/29/23 08:07 37.4 C 99 H 22 93 04/29/23 08:07 101/72 04/29/23 08:00 37.3 C 88 22 94 04/29/23 08:00 101 H 04/29/23 08:00 95 H 107/51 L 04/29/23 07:56 95 H 23 94 04/29/23 07:54 95 H 23 94 Mechanical Vent 04/29/23 07:30 37.4 C 102 H 22 94 04/29/23 07:07 95/68 L 04/29/23 07:07 37.4 C 96 H 22 94 04/29/23 07:00 37.4 C 95 H 22 94 04/29/23 06:30 37.4 C 109 H 22 94 04/29/23 06:07 37.4 C 93 H 22 95 04/29/23 06:07 111/70 04/29/23 06:00 37.4 C 87 23 95 04/29/23 05:30 37.4 C 103 H 22 111/70 95 Mechanical Vent 04/29/23 05:07 104/68 04/29/23 05:00 37.4 C 92 H 22 94 Mechanical Vent 04/29/23 04:00 37.3 C 89 22 98/73 L 95 Mechanical Vent 04/29/23 04:00 04/29/23 04:00 107/54 L 04/29/23 03:00 37.2 C 88 22 102/70 95 Mechanical Vent 04/29/23 02:50 85 23 94 04/29/23 02:00 37.2 C 103 H 24 94 Mechanical Vent 04/29/23 01:00 37.3 C 107 H 22 102/72 95 Mechanical Vent FiO2 04/29/23 11:31 04/29/23 11:25 04/29/23 11:10 04/29/23 10:50 04/29/23 08:37 04/29/23 08:30 04/29/23 08:07 04/29/23 08:07 04/29/23 08:00 04/29/23 08:00 04/29/23 08:00 04/29/23 07:56 45 04/29/23 07:54 45 04/29/23 07:30 04/29/23 07:07 04/29/23 07:07 04/29/23 07:00 04/29/23 06:30 04/29/23 06:07 04/29/23 06:07 04/29/23 06:00 04/29/23 05:30 45 04/29/23 05:07 04/29/23 05:00 45 04/29/23 04:00 45 04/29/23 04:00 45 03/19/24 04:00 04/29/23 03:00 45 04/29/23 02:50 45 04/29/23 02:00 45 04/29/23 01:00 45 Laboratory Results data reviewed Diagnostic Findings data reviewed PG Care Time/CCT Total # of Minutes Spent Total Time Spent with Patient: Total time spent is greater than 50% in coordination of care (as documented) at patient's floor/unit and/or counseling patient: I spent 100 minutes overall addressing this complex case: 25 min in medical data review/discussion with referring provider(s) and/or preparation for the visit including Done. link data review and d/w OSH providers x2 45 min in direct interaction with the patient/exam 00 min in Advance Care Planning/Goals of Care discussions as detailed above in note (must be >16min) 10 min in subsequent review and synthesis of assessment and plan 20 min communicating with other providers regarding the patient's case: Prolonged Care Time Prolonged Care Time: Yes [place] [address] IN/OBS CONSULT LVL 5,80M Patient Type New History Comprehensive Exam Comprehensive Medical Decision Making High Complexity Diagnoses Dyspnea and respiratory abnormalities R06.00; R06.89 Weakness generalized R53.1 Cancer cachexia R64 Advanced care planning/counseling discussion Z71.89 Discussion about advance care planning held with family member Z71.0 Palliative care by specialist Z51.5 Primary tongue squamous cell carcinoma C02.9 Multifocal pneumonia J18.9 Cavitary lesion of lung J98.4 Severe malnutrition E43 Acute massive pulmonary embolism I26.99 Severe sepsis A41.9; R65.20 Septic shock A41.9; R65.21 Acute respiratory failure with hypoxemia J96.01 Additional Codes Prolonged Care Time - Prolonged Care Time: Yes ([id number])
--- NOTE | 2023-04-29 12:38 | Pharmacy Report ---
Pharmacy PK ABX Note - Date of Service April 29, 2023 - Assessment and Plan Assessment 62 year old M who presented with cough and increased SOB for one week. Ordered vancomycin and cefepime for treatment of possible pneumonia. * PMH significant for oral cancer, malnutrition with PEG tube, right lung cavitary lesion, recent hospital admission. * Pertinent microbiologic data includes: negative respiratory Biofire. BC, sputum culture and MRSA Nasal Swab PENDING 04/28: * Bcx growing GNB- BCID2 indicates Pseudonomas * Sputum cx growing klebsiella oxytoca, Pseudomonas and Group C beta strep * Bronch Cxs: GNB and group C beta strep * Current plan is to continue vanc for 72 hours given cavitary lesion (may be continued based on clinical picture), continue azithromycin for a total of 5 days and continue cefepime for 14 days. Anaerobic coverage can be considered if clinical status worsens. Plan Vancomycin * Current regimen: 750 mg IV every 12 hours * Random level obtained 04/29/23 resulted as 13.8 mcg/mL. This is predicted to achieve target AUC/JANNA of 400-600 mg/L.hr * Predicted AUC at steady state: 434 mg/L.hr * Continue 750 mg IV every 12 hours * Current duration of therapy planned for 72 hours through 04/29. If therapy extended past this Will repeat level w/in 48-72 hours Cefepime 2000 mg increased to IV q8h based on CrCl >60 Pharmacy will continue to follow and will adjust dose/frequency as necessary. Thank you. Pharmacy has transitioned to AUC monitoring for vancomycin. AUC/JANNA is the preferred PK/PD target and is associated with decreased risk of nephrotoxicity compared to traditional trough targets.
--- NOTE | 2023-04-29 12:46 | Palliative Family Discussion ---
Date of Service April 29, 2023 Patient Directed Conference Time of Meetin-140pm, face to face ACP with pt and family at bedside. Participants: Jennifer Mcclure DNP Patient participation: intermittent Patient Support System: sister Anupama, sister in law/Annelise (was to pt brother who from cancer Dec 2022) and nephew at bedside, pt brother Juan by telephone Other Healthcare Provider Participation: CCM, nursing Meeting Location: bedside Advanced Directive available: pt does not have an AD completed The patient's surrogate medical decision maker participated: sister A family meeting was held for JULIANNA AZEVEDO. This meeting was necessary for determining the appropriate course of treatment. Topics of Discussion Topics of Discussion: 1. 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 2. This is not a curable cancer situation. He is requiring multipressor support, lung failure, organ failure, cancer can no longer be treated. We reviewed his prior ACP conversation with [facility] team. He was always willing to try interventions and adv life support if the goals would enable him to be able to resume cancer care and remain independent at home; now he is pressor dependent, and recovery to [facility] baseline is not going to happen - would be a lower level of function with dependency on others for care and likely a fpc care vent facility. He will not be able to dc home for EOL care as desired. Ollie does not want to live in SNF or LTACH settings. He does not want to be dependent on others for care. He was able to express understanding that he is now very sick and it is very serious. I told him I feel he is nearing his dying time and we are at the junction to transition to comfort care. His sister in law asked him if he was tired of fighting this cancer and did he want to be comfortable and at peace - he nodded yes. When asked if he would want comfort care with compassionate extubation he answered yes. I reviewed compassionate extubation with him and assured him we would make sure he is comfortable/dyspnea free before extubation. He was agreeable. Family in agreement for PRIVACY OFFICER. 3. Juan and Manuela feel they should all be there. Ollie indicated he would be accepting of whatever timing family wanted. We learned that Juan cannot return until tomorrow morning - he lives in [place]. Manuela may stay the night, she is from [place] but Annelise notes Manuela had a recent [place] and is on cardiac meds, she will need to see if her [facility] can allow her to get a 48hr med supply from a local [facility] here in [place]. Otherwise Annelise and her son will drive Manuela back home and return with her tomorrow. 4. Ollie is now comfort care, no escalation of care and he is DNR/DNI. Will plan for compassionate extubation tomorrow when family arrives likely late morning. CCM and nursing aware. Other Content of Meetin. Opportunity given for participants to speak and ask questions. 2. Participants were assured of attention to patient comfort. 3. Reassurance provided. 4. Support was provided for informed, good-doreen decisions. 5. Emotions expressed by family were acknowledged and addressed. 6. For compassionate extubation tomorrow. Protocol noted below. 7. After the bedside meeting, Manuela Levin and Annelise had many questions they wanted to discuss outside the room including what to expect with extibation, how are symptoms managed and what to expect with the dying process. I answered all their questions as outlined below and provided extensive pschosocial r eassurance: * Dying patients fear dyspnea and pain, therefore, symptom control is one cornerstone of pulmonary palliative care. Dyspnea is a prominent symptom of the patient with advanced respiratory disease of any cause: nearly all patients with COPD had dyspnea during the last 3 days of their lives. Providers routinely care for patients with chronic or advanced respiratory diseases and critical illnesses. The ATS recognizes: the growing importance and complexity of palliative care for patients with life-threatening and life- limiting diseases and disorders and the need for improving professional competence and teamwork in providing such care. The statement strongly endorses the concept that palliative care should be available to patients at all stages of illness and should be individualized based on the needs and preferences of the patient and the patients family. Clinicians should consult with palliative care specialists as appropriate for managing palliative care situations beyond the clinicians level of competence. (ATS Clinical Policy Statement: Palliative Care for Patients with Respiratory Diseases and Critical Illnesses; Arlen Aguirre et al., for the [employer], the [employer], the [employer] Society, and the Respiratory Society* Diagnosis and Management of Stable Chronic Obstructive Pulmonary Disease: A Clinical Practice Guideline Update from the [employer], [employer]icians, [employer] Society, and Respiratory Society . Renetta Magneto Specialist Med. 2011;155:179-191.) * Dying process: Discussed changes pt may move through in the dying process including but not limited to sleeping more, disorientation when awake, restlessness, diminished senses/inability to respond to stimulus although ability to be aware of them remains intact longer, and changes in body temperatures, skin changes/mottling/cyanosis, respiratory pattern changes, and oral secretions. Family verbalized understanding. The goal is to assure a peaceful . * Oxygen at EOL: For patients at the end of life, oxygen delivered by a nasal cannula provides no additional symptomatic benefit for relief of refractory dyspnea in patients with life-limiting illness compared with room air: there's a point at which that the oxygen level gets so low that it's no longer compatible with life. By providing supplemental oxygen, the dying process will be unnecessarily prolonged. Please use less burdensome but more effective strategies such as comfort care meds, oscillating fan, massage, repositioning, etc. (Sg AP, Kamille CF, Roxana PA, et al. Effect of palliative oxygen versus room air in relief of breathlessness in patients with refractory dyspnoea: a double-blind, randomised controlled trial. Lancet. 2010;376(3350):784-793. doi:10.1016/N7655-5966(99)28951-4) * Secretions at EOL/management: I discussed with family that as the level of consciousness decreases in the dying process, patients lose their ability to swallow and clear oral secretions. As air moves over the secretions, which have pooled in the oropharynx and bronchi, the resulting turbulence produces noisy ventilation with each breath, described as gurgling or rattling noises. While there is no evidence that patients find this rattle disturbing, evidence from bereaved surveys suggests the noises can be disturbing to the patients visitors and caregivers who may fear that the patient is choking to . We recommend a combination of Non- Pharmacological and Pharmacological Treatments: * 1. Position the patient on their side or in a semi-prone position to facilitate postural drainage * 2. Communication with family and caregivers to reaffirm commitment to their loves ones care, reduce anxiety and fears. * 3. Gentle oropharyngeal suctioning is used although this can be ineffective when fluids are beyond the reach of the catheter. Avoid deep suctioning as it is very irritating. Note that frequent suctioning is disturbing to both the patient and the visitors. * 4. Reduction of fluid intake. * 5. Consider a 1-2 min Trendelenburg positioning, to move fluids up into the oropharynx for easier removal BUT note that ASPIRATION RISK WILL INCREASE. * 6. Muscarinic receptor blockers (anti-cholinergic drugs) are most often used: glycopyrrolate (Robinul), scopolamine (Transderm Scop), hyoscyamine and atropine. Of these, I prefer to using glycopyrrolate as first line t reatment, because it is a quaternary amine (therefore does not cross the blood-brain barrier) which reduces the potential anti cholinergic agent associated BATTERY FILLER toxicity (sedation, delirium). * 7. Glycopyrrolate has five times the anti-secretory potency compared to atropine, while scopolamine dries/thickens secretions and causes dry mouth, which may be more distressing to the patient and detract from comfort. 8. Palliative medicine Compassionate Withdrawal protocol: * Suggest Dilaudid 1mg IV prior to extubation then 0.5-1mg q5min prn resp distress, pain or air hunger; titrate dose to effect in increments of 0.5-1mg until effective relief is obtained. Please consider an infusion if sx persist. * Ativan 1mg IV prior to extubation, then q30min prn agitation, restlessness, myoclonus; * if agitation persists or does not improve switch to Versed 1mg loading dose IV then 1mg per hour to be increased in increments of 1mg/hr until effective relief of terminal agitation is obtained. * Levsin 0.5mg IV 20 min prior to extubation then 0.25mg IV q4h prn moist secretions * Discontinue paralytics; do not use paralytic agents for ventilator withdrawal. Besides ensuring a patient cannot breathe, they do not prevent or treat any discomfort in patients off ventilators and prevent patients from communicating or demonstrating distress. When patients have multi-organ failure, some paralytics may not be cleared for 2-18 hours. Therefore, if there is doubt as to whether the paralytics have worn off, utilize a peripheral nerve stimulator. It is ok to extubate when you see muscle twitches with 4 cons ecutive nerve stimulations. * Administer glycopyrrolate (Robinul) 0.4 mg IV 20-30 minutes prior to the extubation to minimize secretions. * Administer an IV bolus dose of an opioid (i.e. morphine 2-10 mg IV or Dilaudid 0.5 to 1mg IV) and a benzodiazepine (lorazepam 1-2 mg IV) if anxiety is anticipated. Consider an IV continuous infusion of sedating medication (see below). Do not rely on subcutaneous or enteral drug administration as these take longer to work. For children, obtain dosing advice from a pharmacist or pediatric degree clerk. * Titrate medications to control labored respirations and achieve the desired state of sedation prior to extubation. Testing the eyelid reflex is a common method of quickly assessing level of consciousness. * Have additional medication drawn up and ready to administer at the bedside if needed. * After ventilator withdrawal: Most respiratory distress ensues in the first few hours after the extubation. If distress is noted, utilize additional bolus doses of opioids and benzodiazepines (e.g. morphine 5-10 mg IV push q 10 min, and/or midazolam, 2-4 mg IV push q 10 min, until distress is relieved). You can adjust infusion rates to maintain relief but remember infusion rates have a delayed effect. Therefore, avoid relying on infusion rates to control distress seen after the extubation. * Specific dosages are less important than the goal of symptom relief. A goal should be to keep the respiratory rate < 30 and eliminate grimacing, agitation, and labored respirations. * If needed, the following Palliative Med Versed gtt protocol may be used: For refractory anxiety, agitation +/- terminal delirium, please begin Versed infusion as follows: Versed 2 mg IV bolus, then Versed drip at 1mg/hr. Titrate by 0.5 to 1mg increments until relief is achieved. Time Involved in Meeting: I spent 105 minutes overall addressing this case: 5 in medical data review/discussion with referring provider(s) and/or preparation for the visit0 30 in direct interaction with the patient: pt can answer by yes/no or thumbs up/down due to ETT 50 Advance Care Planning/Goals of Care discussions as detailed above in note (must be >16min) 10 in subsequent review and synthesis of assessment and plan 10 in communicating with other providers regarding the patient's case: CCM, nursing Thank you for allowing us to participate in the ongoing care of this patient. Please don't hesitate to call or page with any additional concerns. Dr. Jennifer Mcclure DNP Director, Palliative Care
[2023-04-29] MEDS: CEFEPIME 2,000 MG in SYRINGE 0 ML IV SCH (13:14)
[2023-04-29 13:53] LABS: Bilirubin Direct 0.2 mg/dl (0-0.2); Bilirubin,Total 0.6 mg/dl (0.2-1.0); Total Protein 5.7 gm/dl (6.0-8.3)
[2023-04-29] MEDS: ASCORBIC ACID 1,500 MG in 0.9 % SODIUM CHLORIDE 100 ML IV SCH (14:21)
[2023-04-29] MEDS: THIAMINE HCL 500 MG in SODIUM CHLORIDE 0.9% 50 ML IV SCH (14:21)
[2023-04-29 18:22] LABS: ANTI-Xa, UFH(UnfractionatedHep 0.16 IU/ml (0.3-0.7)
[2023-04-29] MEDS: HEPARIN SOD (PORCINE) 1000 UNIT/ML IV SCH (19:33)
[2023-04-30 01:30] LABS: ANTI-Xa, UFH(UnfractionatedHep 0.19 IU/ml (0.3-0.7)
[2023-04-30] MEDS: HEPARIN SOD (PORCINE) 1000 UNIT/ML IV ONE (02:21)
[2023-04-30] MEDS: fentaNYL BOLUS from BAG IV PRN (04:10)
[2023-04-30 05:32] LABS: BUN Creatinine Ratio 65.3 (10-20); Calcium 7.7 mg/dl (8.6-10.3); Creatinine Clr Calc Pharmacy 85.3 ml/min; Est GFR (African American) 113.2 ml/min; Est GFR (Non-African American) 97.6 ml/min; Magnesium 2.1 mg/dl (1.7-2.4); Potassium 3.3 mmol/L (3.5-5.1)
[2023-04-30 06:34] LABS: Hematocrit (blood only) 25.1 % (42.0-52.0); Hemoglobin 8.7 g/dl (14.0-18.0); Mean Corpuscular Hemoglobin 31.3 pg (25.0-34.0); Mean Corpuscular Hgb Conc 34.7 g/dL (32.0-36.0); Mean Corpuscular Volume 90.3 fL (80.0-100.0); Mean Platelet Volume 12.9 fL (9.4-12.4); Nucleated RBC # (auto) 0.02 K/uL (0.00-0.12); Nucleated RBC % (auto) 0.6 %; Platelet Count 24 K/uL (130-400); RDW Standard Deviation 61.1 fL (36.4-46.3); Red Blood Count 2.78 M/uL (4.70-6.10); White Blood Count 3.31 K/ul (4.8-10.8)
[2023-04-30 06:35] LABS: Basophils # (auto) 0.02 K/uL (0.00-0.20); Basophils % (auto) 0.6 %; Dohle Bodies 1+; Eosinophils # (auto) 0.01 K/uL (0.00-0.50); Eosinophils % (auto) 0.3 %; Immature Granulocytes # (auto) 0.04 K/uL (0.01-0.20); Immature Granulocytes % (auto) 1.2 %; Lymphocytes # (auto) 0.11 K/uL (1.20-3.40); Lymphocytes % (auto) 3.3 %; Monocytes # (auto) 0.05 K/uL (0.11-0.59); Monocytes % (auto) 1.5 %; Neutrophils # (auto) 3.08 K/uL (1.40-6.50); Neutrophils % (auto) 93.1 %; Platelet Estimate Signific. Decreased (Normal); Polychromasia 1+; Toxic Vacuolation 1+
[2023-04-30] MEDS: POTASSIUM CHLORIDE / WTR 20 MEQ/100 ML PLCT IV SCH (06:37)
--- NOTE | 2023-04-30 09:53 | Critical Care Progress Note ---
Date of Service April 30, 2023 Assessment & Plan (1) Acute massive pulmonary embolism: (2) Severe sepsis: (3) Acute respiratory failure: (4) Cavitary lesion of lung: (5) Severe malnutrition: (6) Pancytopenia due to antineoplastic chemotherapy: (7) Hyponatremia: Plan Reason Critically Ill: 62 YOM admitted to ICU for shock unspecified, afib with RVR, acute hypoxic respiratory failure. CTA interpreted as saddle PE at bifurcation of PA with bilateral PE's. Requiring vasopressor support for multifactorial shock. Neuro - Sedation for mechanical ventilation, chronic pain - Patient requiring sedation for mechanical ventilation- did not tolerate propofol - will use fentanyl as single agent -Aroused and comfortable currently with JENNIFER -1 and following commands/appropriate Cardiac - Shock multifactorial, elevated troponin: This most consistent with type II ischemia Sub-massive PE with shock: Persistent: Continued vasoactive requirement New onset afib, rate controlled: - Patient with likely both obstructive and distributive shock - saddle PE at pulmonary at bifurcation and bilateral pulmonary embolism -Patient and family opted for anticoagulant management versus thrombolysis -AFIB with RVR- bloused with AMMIO continuing maintenance infusion- for rate control which has been successful at this time with HR 100-110s -Would advocate for lifelong anticoagulation therapy unless bleeding risks increase from active hemorrhage or other risk factors -Secondary to ongoing shock will start thiamine supplementation 500 3 times daily today then 200 mg daily x 1 week. Also initiate vitamin C 1500 mg every 6 hours for 4 days Respiratory - Hypoxic respiratory failure requiring intubation, pneumonia, cavitary lung lesions -Discussed with pulmonary, will [facility] for further evaluation of infiltrative changes from prior CT scan in December -Continue cefepime, Azithromycin, Vancomycin for pneumonia-day 1 of 14 awaiting negative blood cultures: Extended course given significant structural change of lung GI -severe protein calorie malnutrition with PEG tube in place -Holding supplementation as patient has high vasoactive require Transaminitis: Likely multifactorial Severe hypoalbuminemia -I do believe the patient is profoundly plasma protein deficient and likely deficient in Antithrombin therefore had exhibiting signs of relative heparin resistance RENAL/LYTES - Elevated Bun with stable DJANGO DEVELOPER - Likely pre-renal at this time, no evidence of GI bleeding or dark stools - ICU electrolyte protocol - Anderson placed for accurate [place] while on vasopressors ENDO - NO acute needs -Cortisol adequate HEME - Pancytopenia - multifactorial in the setting of sepsis and s/p chemotherapy 2 weeks ago -Received PRBC for anemia with end organ dysfunction: Thrombocytopenia: Worsening -Discontinue heparin, progressing to comfort care. Anemia: Multifactorial ID - Septic shock - Pseudomonas bacteremia -No clear indication for double coverage given BioFire findings, does carry risk factors of significant structural lung disease with possible mauro mitten sepsis in the setting of submassive PE -Floraquinolone susceptibility less than 90% based off the local antibiogram -Gentamicin only antibiotic we can monitor in house, local susceptibility less than 90% as well -If requires double coverage would advocate for tobramycin or amikacin: Awaiting formal sensitivity -Repeat blood cultures ordered -Anticipate minimum 14 days of effective therapy with IV antibiotics -Sputum growth of Klebsiella and group C beta strep, bronchoscopy culture pending -Anticipate 5 days of treatment with azithromycin for atypical coverage, cefepime for pseudomonal coverage for minimum 14 days, vancomycin to continue for 72 hours empiric given lung findings however his oxygen requirement is not increasing LINES/IV ACCESS - PIV, Central Line Right IJ, Arterial line, ETT, Continue use of these lines DVT PROPHYLAXIS - SCDS, Heparin infusion DISPO: ICU while on vasopressors and requiring mechanical ventilation I am concerned the patient is entering an end-stage terminal condition without meaningful chance of recovery as described by the patient's family. His overarching goal was to live independently and live at home. All family members described that his care requirements are exceeding that of independent living at this time and this is inconsistent with his [facility] [facility] beliefs I have personally spent 45 minutes of critical care time in the direct management of this patient. This is a life/limb threatening event. This includes time spent evaluating patient, direct bedside care, chart review, placing orders, interpretation of diagnostic studies, discussion with consultants, patient, and family members, as well as other required patient management activities. This time is exclusive of all separately billable procedures, and separate from and in addition to any other critical care service time. 1130 update, family present at bedside again reaffirmed decisions from lucy girard, patient understands he cannot have tube in perpetually, does not desire tracheostomy nor vent dependence. We discussed continued mechanical ventilation increases risk for chronic respiratory failure, I feel it is reasonable to proceed with liberation from ventilator at this time. We will not reinsert the breathing tube. Patient and family understanding that if patient fails we will proceed to comfort care. After approximately 30 minutes patient's blood pressure drops as well as oxygen saturations, we have administered morphine and a dose of Ativan family reports he appears comfortable. I anticipate the patient will pass away later today. Admission and Anticipated Discharge Date Admission Date: April 27, 2023 Physical Exam Physical Exam: General: Arousable to voice, cachectic and frail in appearance, follows two-step commands Skin: Warm, dry, Head: Atraumatic Ears, nose, mouth and throat: airway obscured by endotracheal tube Cardiovascular: Normal peripheral perfusion Respiratory: Ventilator settings reviewed Gastrointestinal: Non distended Musculoskeletal: No deformity Results & Data Results & Data Vital Signs (Past 12 Hours) Vital Signs Temp Pulse Resp BP Pulse Ox O2 Del Method FiO2 04/30/23 08:15 Mechanical Vent 60 04/30/23 08:07 101/75 04/30/23 08:00 37.5 C 116 H 23 94 04/30/23 08:00 110 H 04/30/23 08:00 60 04/30/23 08:00 109 H 117/61 04/30/23 07:53 109 H 24 93 60 04/30/23 07:07 111/74 04/30/23 07:00 37.5 C 106 H 22 93 04/30/23 06:07 120/73 04/30/23 06:00 37.5 C 112 H 23 92 04/30/23 06:00 37.5 C 103 H 22 126/64 91 Mechanical Vent 60 04/30/23 05:00 37.6 C H 107 H 23 90 Mechanical Vent 60 04/30/23 04:00 37.7 C H 109 H 25 H 120/83 88 L Mechanical Vent 60 04/30/23 04:00 60 04/30/23 03:34 22 50 04/30/23 03:13 37.5 C 22 106/51 L 89 L Mechanical Vent 50 04/30/23 02:00 37.4 C 94 H 22 90 Mechanical Vent 50 04/30/23 01:00 37.4 C 103 H 22 89 L Mechanical Vent 50 04/30/23 00:00 37.3 C 100 H 22 90 Mechanical Vent 50 04/30/23 00:00 50 04/29/23 23:04 96 H 04/29/23 23:00 37.4 C 94 H 24 110/58 L 91 Mechanical Vent 50 04/29/23 22:45 116 H 23 90 50 Critical Care Results & Data Vital Signs (Past 12 Hours) Vital Signs Temp Pulse Resp BP Pulse Ox O2 Del Method FiO2 04/30/23 08:15 Mechanical Vent 60 04/30/23 08:07 101/75 04/30/23 08:00 37.5 C 116 H 23 94 04/30/23 08:00 110 H 04/30/23 08:00 60 04/30/23 08:00 109 H 117/61 04/30/23 07:53 109 H 24 93 60 04/30/23 07:07 111/74 04/30/23 07:00 37.5 C 106 H 22 93 04/30/23 06:07 120/73 04/30/23 06:00 37.5 C 112 H 23 92 04/30/23 06:00 37.5 C 103 H 22 126/64 91 Mechanical Vent 60 04/30/23 05:00 37.6 C H 107 H 23 90 Mechanical Vent 60 04/30/23 04:00 37.7 C H 109 H 25 H 120/83 88 L Mechanical Vent 60 04/30/23 04:00 60 04/30/23 03:34 22 50 04/30/23 03:13 37.5 C 22 106/51 L 89 L Mechanical Vent 50 04/30/23 02:00 37.4 C 94 H 22 90 Mechanical Vent 50 04/30/23 01:00 37.4 C 103 H 22 89 L Mechanical Vent 50 04/30/23 00:00 37.3 C 100 H 22 90 Mechanical Vent 50 04/30/23 00:00 50 04/29/23 23:04 96 H 04/29/23 23:00 37.4 C 94 H 24 110/58 L 91 Mechanical Vent 50 04/29/23 22:45 116 H 23 90 50 Lab & Micro Results (Past 24 Hours) RBC 2.78 M/uL (4.70-6.10) L 04/30/23 WBC 3.31 K/ul (4.8-10.8) L 04/30/23 Hgb 8.7 g/dl (14.0-18.0) L 04/30/23 Hct 25.1 % (42.0-52.0) L 04/30/23 MCV 90.3 fL (80.0-100.0) 04/30/23 MCH 31.3 pg (25.0-34.0) 04/30/23 MCHC 34.7 g/dL (32.0-36.0) 04/30/23 RDW Standard Deviation 61.1 fL (36.4-46.3) H 04/30/23 RDW Coefficient of Variation 19.0 % (11.5-14.5) H 04/30/23 Plt Count 24 K/uL (130-400) L* 04/30/23 MPV 12.9 fL (9.4-12.4) H 04/30/23 Nucleated Red Blood Cells % (auto) 0.6 % 04/29 Nucleated RBC Absolute Count (auto) 0.02 K/uL (0.00-0.12) 0 04/30/23 Neutrophils (%) (Auto) 93.1 % 04/30/23 Lymphocytes (%) (Auto) 3.3 % 04/30/23 Monocytes # (Auto) 0.05 K/uL (0.11-0.59) L 04/30/23 Eosinophils # (Auto) 0.01 K/uL (0.00-0.50) 04/30/23 Immature Granulocyte % (Auto) 1.2 % 04/30/23 Neutrophils # (Auto) 3.08 K/uL (1.40-6.50) 04/30/23 Lymphocytes # (Auto) 0.11 K/uL (1.20-3.40) L 04/30/23 Monocytes # (Auto) 0.05 K/uL (0.11-0.59) L 04/30/23 Eosinophils # (Auto) 0.01 K/uL (0.00-0.50) 04/30/23 Basophils # (Auto) 0.02 K/uL (0.00-0.20) 04/30/23 Immature Granulocyte # (Auto) 0.04 K/uL (0.01-0.20) 4 Polychromasia 1+ 04/30/23 Toxic Vacuolation 1+ 04/30/23 Dohle Bodies 1+ 04/30/23 Na 134 mmol/L (136-145) L 04/30/23 K 3.3 mmol/L (3.5-5.1) L 04/30/23 Cl 101 mmol/L (98-107) 04/30/23 CO2 24 mmol/L (21-32) 04/30/23 Anion Gap 9 (3-11) 04/30/23 BUN 49 mg/dl (6-23) H 04/30/23 Creatinine 0.75 mg/dl (0.6-1.4) 04/30/23 Estimated GFR ( Amer) 113.2 ml/min 04/30/23 Estimated GFR (Non-Af Amer) 97.6 ml/min 04/30/23 BUN/Creatinine Ratio 65.3 (10-20) H 04/30/23 Glu 100 mg/dl (70-99(Fasting)) H 04/30/23 Ca 7.7 mg/dl (8.6-10.3) L 04/30/23 Phosphorus Level 3.0 mg/dl (2.5-4.9) 04/30/23 Mg 2.1 mg/dl (1.7-2.4) 04/30/23 04:25 Calcium Level 7.7 mg/dl (8.6-10.3) L 04/30/23 04:25 Microbiology 04/27/23 20:52 Urine Culture - Final Urine,Clean Catch No growth - less than 1,000 colonies/mL. 04/28/23 09:05 Gram Stain - Final Bronch Wash,Left Lower Lobe Bronchial Culture - Final Pseudomonas aeruginosa Group C Beta Strep 04/28/23 09:05 Gram Stain - Final Ba Lavage,Right Upper Lobe Bronchial Culture - Final Pseudomonas aeruginosa Klebsiella oxytoca Group C Beta Strep 04/27/23 17:15 Aerobic Blood Culture - Preliminary Blood Pseudomonas aeruginosa Anaerobic Blood Culture - Preliminary No growth in Anaerobic bottle after 48 hours. 04/27/23 17:05 Aerobic Blood Culture - Preliminary Blood Pseudomonas aeruginosa Anaerobic Blood Culture - Preliminary No growth in Anaerobic bottle after 48 hours. 04/29/23 10:26 Fungal Smear - Final Blood 04/28/23 09:05 Acid Fast Bacilli Smear - Final Ba Lavage,Right Upper Lobe 04/28/23 09:05 Acid Fast Bacilli Smear - Final Bronch Wash,Left Lower Lobe 04/27/23 17:00 Gram Stain - Final Sputum, Expectorated Sputum Culture - Final Klebsiella oxytoca Pseudomonas aeruginosa Group C Beta Strep I & O Totals 24 Hours 04/29/23 04/30/23 05/01/23 06:59 06:59 06:59 Intake Total 3863.386 / 3863.386 4131.761 / 4131.761 553.267 / 553.267 Output Total 1160 / 1160 1140 / 1140 125 / 125 Balance 2703.386 / 2703.386 2991.761 / 2991.761 428.267 / 428.267 Cumulative 04/27/23 16:18 thru 04/30/23 08:49 Intake Total 92815.217 Output Total 3030 Balance 91383.217 RT Ventilator Mngmt (Last Documented) Ventilator Ordered Settings Ventilator Support Mode Assist Control 04/30/23 08:00 Respiratory Rate 23 04/30/23 08:00 Ventilator Tidal Volume 450 04/30/23 08:00 Setting Minute Ventilation 10 04/30/23 07:53 Positive End Expiratory 5 04/30/23 08:00 Pressure Fraction of Inspired Oxygen 60 04/30/23 08:15 Peak Inspiratory Flow 50 04/28/23 15:32 Ventilator - PT Measurements Respiratory Rate 23 Exhaled Tidal Volume 434 Minute Ventilation 10 Peak Inspiratory Airway 23 Pressure Plateau Pressure 13 Respiratory Cycle Inspiratory: 1:2.9 Expiratory Ratio Inspiratory Phase Time 0.7 End-Tidal CO2 24 Static Lung Compliance 54.25 Dynamic Lung Compliance 24.11 Normal Static Lung Compliance 46.00 Patient Measurements Comment Advanced tube 2cm per Du COLLINS. Decreased FIO2 to 40%. Coding Level of Care Code 93667 CRITICAL CARE 1ST 30-74M Diagnoses Acute massive pulmonary embolism I26.99 Severe sepsis A41.9; R65.20 Acute respiratory failure J96.00 Cavitary lesion of lung J98.4 Severe malnutrition E43 Pancytopenia due to antineoplastic chemotherapy D61.810; T45.1X5A Hyponatremia E87.1
[2023-04-30] MEDS: MoRPHine SULFATE 2 MG/ML CARP IV PRN (11:55)
[2023-04-30] MEDS: LORazepam 0.5 MG in SYRINGE 0.25 ML IV PRN (12:11)
[2023-04-30] MEDS: MoRPHine SULFATE 2 MG/ML CARP IV STA (12:12)
--- NOTE | 2023-04-30 14:09 | Death Pronouncement Note ---
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 Patient was ultimately found to be severely septic requiring intubation and vasoactive medication. During his evaluation he was also found to have a submassive pulmonary embolism. He underwent bronchoscopy given structural lung findings, those specimens also grew Pseudomonas. He was found to be pancytopenic presumptively secondary to recent chemotherapy agents. Several family and patient discussions were had, the patient declined treatment with thrombolytic therapy for the pulmonary embolism. His respiratory failure marginally improved, patient's end-of-life decisions were reaffirmed, he would not want to undergo prolonged mechanical ventilation so the decision was made to terminally extubate the patient and if he failed to proceed with comfort care given significant cancer cachexia. With several family members present at the bedside the patient was extubated, he was not able to maintain his oxygen saturation and the patient's course transitioned to comfort care. He was given an anxiolytic and morphine for air hunger and family confirmed the patient appeared to be comfortable. He with family present at the bedside at 1237. Additional Data Confirmation of : no pulse, no respirations, no heart sounds, pupils fixed and dilated and other (No electrical activity on bedside monitor) Family: at bedside Attending physician: Mganus Esparza MD Coding Level of Care Code 11067 IN/OBS DISCH 30 MIN/LESS Diagnoses Bacteremia due to Pseudomonas R78.81; B96.5 Pancytopenia due to antineoplastic chemotherapy D61.810; T45.1X5A Acute massive pulmonary embolism I26.99 Acute respiratory failure J96.00 Severe malnutrition E43 Primary tongue squamous cell carcinoma C02.9 Cancer cachexia R64
--- NOTE | 2023-04-30 14:20 | Communication Note ---
Date of Service: April 30, 2023 Patient was terminally extubated by ICU team this morning ad transitioned to comfort care. Patient's family aware of patient's condition and agreed with kwasi vallejo management. RN noticed patient to cease breathing at 12:27 PM on 04/30/23. On Exam patient had no audible breath or heart sounds, No detectable pulse on monitor. Pupils dilated and non reactive. Patient was pronounced to be . Family was made aware.
--- NOTE | 2023-04-30 14:39 | Discharge Summary ---
Date of Service April 30, 2023 Admission HPI Per Admitting Provider Patient is 62-year-old male with PMH squamous cell carcinoma of tongue, malnutrition, PEG tube status, right lung cavitary lesion, former tobacco use, former alcohol use presented to ER with complaint cough and increased SOB x 1 week. 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 Recent hospital admission 03/19/2023-03/25/2023 for pneumonia, sepsis, neutropenic fever initially treated with cefepime, vancomycin and transition to doxycycline and cefepime History obtained from patient, patient's nieces, outpatient and inpatient chart review. Patient with history oral cancer and mouth pain and does not talk secondary to pain. Uses notepad to communicate. Uses tube feeds and very limited oral intake of sips of water. It is reported that patient has had worsening shortness of breath and productive white cough, postnasal drip for over a week. He has not taken temperatures at home but reports didn't have tactile fevers. He was seen outpatient at [facility] on 04/22/2023 for follow-up of cavitary lung lesion however had reported the symptoms as well. Per note it was noted patient had wet sounding cough and had a lot of secretions but was able to cough them out and had "decent saturation on room air". Per note it was discussed about having bronchoscopy on 04/23/2023 however this appears to have been delayed and is scheduled for 04/29/2023 and per note patient had wanted to go home. Patient and niece report progressive worsening and patient severely SOB. Patient states today had severe shortness of breath and chest pain. It is reported EMS found patient to have pulse ox of 74% on room air up to94% on 15 L via nonrebreather. Admission Exam Per Admitting Provider physical exam Gen: cachectic, emaciated, chronically ill/frail appearing Head: deep temporal wasting and sunken cheeks Neck: trachea midline CV: rapid HR, irreg rhythm Pulm: coarse sounds Ext: no edema Neuro: no focal deficits MSK: diffuse muscle wasting, cachectic Principal Diagnosis Septic shock Pseudomonas bacteremia Multifocal pneumonia Acute massive pulmonary embolism Ventilatory dependent respiratory failure Severe malnutrition Metastatic squamous cell carcinoma of tongue Discharge Data Allergies Allergy/AdvReac Type Severity Reaction Status Date / Time No Known Allergies Allergy Verified 04/27/23 18:46 Consultations 04/27/23 20:52 Consult Customer Relations Specialist Routine 04/28/23 09:05 Consult Pulmonology Routine 04/28/23 14:54 Consult Palliative Care Routine Procedures Performed Laboratory Results WBC 3.31 K/ul (4.8-10.8) L 04/30/23 04:25 RBC 2.78 M/uL (4.70-6.10) L 04/30/23 04:25 Hgb 8.7 g/dl (14.0-18.0) L 04/30/23 04:25 POC Hgb 8.2 g/dl (14.0-18.0) L 04/28/23 09:57 Hct 25.1 % (42.0-52.0) L 04/30/23 04:25 POC Hct 24 % (42-52) L 04/28/23 09:57 MCV 90.3 fL (80.0-100.0) 04/30/23 04:25 MCH 31.3 pg (25.0-34.0) 04/30/23 04:25 MCHC 34.7 g/dL (32.0-36.0) 04/30/23 04:25 RDW Std Deviation 61.1 fL (36.4-46.3) H 04/30/23 04:25 RDW Coeff of Suraj 19.0 % (11.5-14.5) H 04/30/23 04:25 Plt Count 24 K/uL (130-400) L* 04/30/23 04:25 MPV 12.9 fL (9.4-12.4) H 04/30/23 04:25 Immature Gran % (Auto) 1.2 % 04/30/23 04:25 Neut % (Auto) 93.1 % 04/30/23 04:25 Lymph % (Auto) 3.3 % 04/30/23 04:25 Emanuel % (Auto) 1.5 % 04/30/23 04:25 Eos % (Auto) 0.3 % 04/30/23 04:25 Baso % (Auto) 0.6 % 04/30/23 04:25 Neut # (Auto) 3.08 K/uL (1.40-6.50) 04/30/23 04:25 Lymph # (Auto) 0.11 K/uL (1.20-3.40) L 04/30/23 04:25 Emanuel # (Auto) 0.05 K/uL (0.11-0.59) L 04/30/23 04:25 Eos # (Auto) 0.01 K/uL (0.00-0.50) 04/30/23 04:25 Baso # (Auto) 0.02 K/uL (0.00-0.20) 04/30/23 04:25 Immature Gran # (Auto) 0.04 K/uL (0.01-0.20) 04/30/23 04:25 Absolute Nucleated RBC 0.02 K/uL (0.00-0.12) 04/30/23 04:25 Nucleated RBC % (auto) 0.6 % 04/30/23 04:25 Toxic Granulation 1+ 04/29/23 03:54 Toxic Vacuolation 1+ 04/30/23 04:25 Dohle Bodies 1+ 04/30/23 04:25 Platelet Estimate Signific. Decreased (Normal) L 04/30/23 04:25 Polychromasia 1+ 04/30/23 04:25 Anisocytosis Present 04/29/23 03:54 PT 12.7 Seconds (9.0-12.0) H 04/29/23 08:09 INR 1.2 (0.9-1.1) H 04/29/23 08:09 APTT 35 Seconds (21-31) H 04/27/23 22:23 PTT Ratio 1.2 04/27/23 22:23 Fibrinogen 724 mg/dl (184-400) H 04/29/23 08:09 Heparin Anti-Xa, Unfract 0.20 IU/ml (0.3-0.7) L 04/30/23 08:01 Sample Site Art Line 04/28/23 09:57 POC pH 7.37 (7.35-7.45) 04/28/23 09:57 POC pCO2 44 mmHg (35-46) 04/28/23 09:57 POC pO2 71 mmHg (80-95) L 04/28/23 09:57 POC HCO3 25 dimitri/L (19-24) H 04/28/23 09:57 POC Total CO2 26 mmol/L (24-31) 04/28/23 09:57 POC Base Excess 0.0 dimitri/L (-9-1.8) 04/28/23 09:57 ABG pH (Temp Correct) 7.364 (7.35-7.45) 04/28/23 09:57 ABG pCO2 (Temp Corrct 44 mmHg (35-46) 04/28/23 09:57 POC ABG pO2 at Pt Temp 72 04/28/23 09:57 POC ABG O2 Sat 93.0 % (90-95) 04/28/23 09:57 Jeremy Test NA 04/28/23 09:57 O2 Delivery Device Ventilator 04/28/23 09:57 POC O2 Rate 22 04/28/23 09:57 Minute Ventilation 9.9 04/28/23 09:57 POC FiO2 45 % 04/28/23 09:57 Tidal Volume 450 04/28/23 09:57 PEEP 5 04/28/23 09:57 POC Sodium 137 mmol/L (135-144) 04/28/23 09:57 Sodium 134 mmol/L (136-145) L 04/30/23 04:25 POC Potassium 3.9 mmol/L (3.3-5.0) 04/28/23 09:57 Potassium 3.3 mmol/L (3.5-5.1) L 04/30/23 04:25 Chloride 101 mmol/L (98-107) 04/30/23 04:25 Carbon Dioxide 24 mmol/L (21-32) 04/30/23 04:25 Anion Gap 9 (3-11) 04/30/23 04:25 BUN 49 mg/dl (6-23) H 04/30/23 04:25 Creatinine 0.75 mg/dl (0.6-1.4) 04/30/23 04:25 Est Cr Clr Drug Dosing 85.3 ml/min 04/30/23 04:25 Est GFR ( Amer) 113.2 ml/min 04/30/23 04:25 Est GFR (Non-Af Amer) 97.6 ml/min 04/30/23 04:25 BUN/Creatinine Ratio 65.3 (10-20) H 04/30/23 04:25 Glucose 100 mg/dl (70-99(Fasting)) H 04/30/23 04:25 POC Glucose 115 mg/dl (70-99) H 04/30/23 05:46 POC Glucose (other) 132 mg/dl (70-99) H 04/29/23 17:28 Lactate 2.4 mmol/L (0.4-2.0) H* 04/29/23 10:26 Calcium 7.7 mg/dl (8.6-10.3) L 04/30/23 04:25 Phosphorus 3.0 mg/dl (2.5-4.9) 04/30/23 04:25 Magnesium 2.1 mg/dl (1.7-2.4) 04/30/23 04:25 Total Bilirubin 0.6 mg/dl (0.2-1.0) D 04/29/23 10:26 Direct Bilirubin 0.2 mg/dl (0-0.2) 04/29/23 10:26 AST 44 U/L (13-39) H 04/29/23 10:26 ALT 60 U/L (7-52) H 04/29/23 10:26 Alkaline Phosphatase 70 U/L (34-104) 04/29/23 10:26 Troponin I High Sens 40.0 pg/ml (0-20) H 04/27/23 19:26 Total Protein 5.7 gm/dl (6.0-8.3) L 04/29/23 10:26 Albumin 2.0 gm/dl (3.4-5.0) L 04/29/23 10:26 Globulin 3.6 gm/dl (2.5-4.0) 04/28/23 04:20 Albumin/Globulin Ratio 0.6 (0.9-2) L 04/28/23 04:20 Procalcitonin 15.60 ng/ml (0-0.5) H 04/27/23 17:05 Random Cortisol > 60.00 mcg/dl 04/27/23 22:23 Urine Color Dark Yellow 04/27/23 20:52 Urine Appearance Cloudy (Clear) A 04/27/23 20:52 Urine pH 5.0 (4.5-7.5) 04/27/23 20:52 Ur Specific [place] 1.032 (1.000-1.030) H 04/27/23 20:52 Urine Protein 1+ (Negative) H 04/27/23 20:52 Urine Glucose (UA) Negative (Negative) 04/27/23 20:52 Urine Ketones Negative (Negative) 04/27/23 20:52 Urine Blood Negative (Negative) 04/27/23 20:52 Urine Nitrite Negative (Negative) 04/27/23 20:52 Urine Bilirubin Negative (Negative) 04/27/23 20:52 Urine Urobilinogen Positive (Negative) H 04/27/23 20:52 Ur Leukocyte Esterase Negative (Negative) 04/27/23 20:52 Urine WBC (Auto) 5-10 /hpf (0-5) H 04/27/23 20:52 Urine RBC (Auto) 0-4 /hpf (0-4) 04/27/23 20:52 U Hyaline Cast (Auto) 5-10 /lpf (0-5) H 04/27/23 20:52 U Epithel Cells (Auto) >30 /lpf (0-5) H 04/27/23 20:52 Urine Bacteria (Auto) 1+ (Negative) H 04/27/23 20:52 Urine Yeast Not Reportable 04/27/23 20:52 Fluid Neutrophils % 91 % 04/28/23 09:05 Fluid Lymphocytes % 2 % 04/28/23 09:05 Fl Monocyt/Macrophag % 7 % 04/28/23 09:05 Fluid Comment 04/28/23 09:05 Nasal Screen MRSA (PCR) Negative (Negative) 04/27/23 22:25 Random Vancomycin 13.8 mcg/ml (10-20) 04/29/23 03:54 Adenovirus (PCR) Not Detected (NotDetected) 04/27/23 17:10 B. pertussis DNA (PCR) Not Detected (NotDetected) 04/27/23 17:10 B.parapertussis DNA PCR Not Detected (NotDetected) 04/27/23 17:10 C. pneumoniae DNA (PCR) Not Detected (NotDetected) 04/27/23 17:10 Coronavirus OC43 (PCR) Not Detected (NotDetected) 04/27/23 17:10 Coronavirus HKU1 (PCR) Not Detected (NotDetected) 04/27/23 17:10 Coronavirus 229E (PCR) Not Detected (NotDetected) 04/27/23 17:10 SARS-CoV-2 (PCR) Not Detected (NotDetected) 04/27/23 17:10 Coronavirus NL63 (PCR) Not Detected (NotDetected) 04/27/23 17:10 Human Metapneumovir PCR Not Detected (NotDetected) 04/27/23 17:10 Influenza Type A (PCR) Not Detected (NotDetected) 04/27/23 17:10 Influenza Type B (PCR) Not Detected (NotDetected) 04/27/23 17:10 Urine Legionella Ag SEE NOTE 04/27/23 20:52 M. pneumoniae (PCR) Not Detected (NotDetected) 04/27/23 17:10 Parainfluenza 1 (PCR) Not Detected (NotDetected) 04/27/23 17:10 Parainfluenza 2 (PCR) Not Detected (NotDetected) 04/27/23 17:10 Parainfluenza 3 (PCR) Not Detected (NotDetected) 04/27/23 17:10 Parainfluenza 4 (PCR) Not Detected (NotDetected) 04/27/23 17:10 RSV (PCR) Not Detected (NotDetected) 04/27/23 17:10 Entero/Rhino (PCR) Not Detected (NotDetected) 04/27/23 17:10 P. aeruginosa (PCR) DETECTED (NotDetected) A 04/27/23 17:05 blaIMP Car res Gene PCR Not Detected (NotDetected) 04/27/23 17:05 KPC-Carbap Res Gene PCR Not Detected (NotDetected) 04/27/23 17:05 blaNDM Car Res Gene PCR Not Detected (NotDetected) 04/27/23 17:05 blaVIM Car Res Gene PCR Not Detected (NotDetected) 04/27/23 17:05 CTX-M Gene Resistance (PCR) Not Detected (NotDetected) 04/27/23 17:05 Bld Cult ID Panel PCR See PCR Comment (NotDetected) 04/27/23 17:05 Blood Type B Negative 04/27/23 21:49 Blood Type Recheck B Negative 04/27/23 22:23 Antibody Screen NEGATIVE 04/27/23 21:49 Crossmatch See Detail 04/27/23 21:49 Impressions Chest CTA 04/27/23 20:07 CR Exam(s): CTA CHEST IV Amt: OPTIRAY [id number] EXAM: CT Angiography Chest With Intravenous Contrast CLINICAL HISTORY: Reason for exam: PE. TECHNIQUE: Axial computed tomographic angiography images of the chest with intravenous contrast. CTDI is 12.93 mGy and DLP is 482.03 mGy-cm. Automated exposure control was utilized for the study. A dose lowering technique was utilized adhering to the principles of ALARA. MIP reconstructed images were created and reviewed. COMPARISON: No relevant prior studies available. FINDINGS: Pulmonary arteries: There is saddle thrombus identified at the bifurcation of the main pulmonary artery with extension into the lobar branches of the lower lobes and right middle lobe. Aorta: No acute findings. No thoracic aortic aneurysm. Lungs: Extensive multifocal consolidations are seen in bilateral lungs, most prominently involving the lower lobes and right middle lobe. Moderate centrilobular emphysema. 6.2 cm emphysematous bulla seen in the right upper lobe, containing a 1.9 cm dependent nodularity. Pleural space: Unremarkable. No significant effusion. No pneumothorax. Heart: Unremarkable. No cardiomegaly. No significant pericardial effusion. No evidence of RV dysfunction. Bones/joints: No acute fracture. No dislocation. Soft tissues: Unremarkable. Lymph nodes: Unremarkable. No enlarged lymph nodes. IMPRESSION: 1. Bilateral pulmonary embolism 2. Bilateral multifocal pneumonia 3. Cavitary lesion in the right lung apex with dependent nodularity. Aspergilloma cannot be excluded. Communications: Call Doctor Pulmonary Embolism Electronically signed by: Steven Anne MD 04/27/23 22:46 PM Chest X-Ray 04/27/23 20:07 SINGLE VIEW CHEST CLINICAL HISTORY: Respiratory failure. Intubation. FINDINGS: 2 AP, portable, semierect chest radiographs are compared to chest x- ray and chest CT performed earlier the same day 04/27/2023. A right internal jugular central venous catheters in place. The tip projects over the SVC. Endotracheal tube has been placed. The tip projects approximately 4.5 cm above the quentin. The cardiomediastinal silhouette is top normal for projection and noting atherosclerotic calcification of the thoracic aorta. Advanced emphysema and chronic interstitial thickening is similar to previous. Multifocal airspace consolidation is again seen throughout both lungs, greatest at the lung bases. Cavitation and fibrosis is noted at the right apex. There is no large pleural effusion or pneumothorax. The skeletal structures are osteopenic. The bony thorax is grossly intact. IMPRESSION: 1. Endotracheal tube and central venous catheter placement as above. 2. Advanced emphysema. 3. Multifocal airspace consolidation is again noted an typical for pneumonia. Clinical correlation will be required and radiographic follow-up to resolution is recommended. ACT 112: Negative or not required by law. Electronically signed by: Red Camara M.D. 04/28/2023 7:33 AM Ordered Studies 04/27/23 20:07 CT angio chest PE protocol Stat Hospital Course (1) Acute respiratory failure: Septic shock Pseudomonas bacteremia Multifocal pneumonia Acute massive pulmonary embolism Ventilatory dependent respiratory failure Severe malnutrition Metastatic squamous cell carcinoma of tongue Atrial fibrillation Thrombocytopenia Patient is a 62-year-old male with history of metastatic squamous cell carcinoma of the tongue, cavitary lung lesion and other medical problems presented with worsening shortness of breath and cough since 1 week duration as per record. Patient was admitted in ICU for management of septic shock, A-fib RVR, acute respiratory failure thought to be secondary to multifocal pneumonia and saddle pulmonary embolism. Patient required pressors. Patient was treated aggressively with IV antibiotics and ICU team was involved. Patient underwent bronchoscopy and was found to have Pseudomonas both on bronchial cultures and blood. He was also noted to be pancytopenic. Patient declined thrombolytic therapy for pulmonary embolism as per record. Patient preferred no prolonged ventilation as per record and wanted to be terminally extubated. Patient's family aware and agreed with current management as per record. Patient was terminally extubated and transition to comfort care on 04/30/23. Family aware and agreed with current management. Patient after extubation. (2) Severe sepsis: (3) Pneumonia: (4) Pancytopenia: (5) Cancer of oral cavity: Right lateral tongue squamous cell carcinoma S/P chemo, radiation (6) Cavitary lesion of lung: Known right upper lung cavitary lesion Following with [facility] pulmonology outpatient. 12/2022 bronchoscopy suggestive aspergillus and was to treated with voriconazole, but unclear if patient took medication (7) Severe malnutrition: BMI: 16 PEG tube status. Currently not taking oral secondary to oral mouth pain from radiation. Significant weight loss over past 9 months. PEG tube receiving tube feeds 6 time daily On home Nutren Total Time Total Time Spent Total Time Spent (In Minutes): 36 minutes Discharge Plan Discharge Items Patient Disposition: Other Date/Time: 04/30/23 12:27
[2023-04-30 17:33] LABS: Aspergillus Ag Index 0.05 (<0.50); Aspergillus Antigen, Serum Not Detected (Not Detected)
[2023-05-01] MEDS ORDERED: THIAMINE HCL 200 MG in SODIUM CHLORIDE 0.9% 50 ML IV SCH (09:00)
== END 2023-04-30 14:38 | disposition expired | DRG 871 ==
LOC: ED 16:53 → 1E 19:24 → SUATTDRO 19:24 → 1E 20:30